=== PATIENT | male | born 1935 | race Caucasian/White ===

== ENCOUNTER → 2016-07-27 | Outpatient (CLI) | payer MEDICARE ==
[~2016-07-27] MED LIST: AC500T PO; ACDPT; ACHYD1T PO; ASP81TEC PO; ASPI-84; CA C1TAB75 PO; CALC-657 PO; CYAN100070 PO; DICL100G20 TOP; ENXP40I.4 SQ; FERR27TA; FISH OIL OMEGA1 EAC1 PO; GLUC-132 PO; HYDR-3857 PO; L GA1CAP2 PO; LISI20TA PO; LISI20TA2; MELA1TAB11 PO; MELA5CAP PO; MEMA10TA PO; MEMA28CA PO; METO50TA7 PO; MULT-1029 PO; MULT-608; MULT-963 PO; OMEG-12 PO; OMEG1CAP47; OMEP-10 PO; OSTEO BI-FLEX PO; RIVA1PAT4 TD; ROPI1TAB40 PO; SENN1TAB76 PO; SULF1TAB7 PO; TRAM-42 PO; TYLENOL ARTHRITIS; WARF4TAB; WARF4TAB7 PO; WRF2T PO; Warfarin Sod PO; [UNRECOGNIZED DRUG - CODE]; [UNRECOGNIZED DRUG - CODE] PO
--- NOTE | 2016-07-27 13:45 | Diagnostic Imaging Report ---
INDICATION: Renal cyst. TECHNIQUE: Bilateral renal sonography was performed in the routine fashion. COMPARISON: 02/26/2016. FINDINGS: The right kidney measures 8.7 x 4.9 x 5.3 cm. The left kidney measures 10.5 x 5.9 x 4.7 cm. There is a complex cyst with septation in the superior portion of the left kidney measuring 2.8 x 2.4 x 3.2 cm. This is unchanged compared to the previous study. The urinary bladder is unremarkable. The right ureteral jet was not seen at this time and the left ureteral jet was visualized. IMPRESSION: Unchanged complex septated cyst in the left kidney superiorly. No new abnormality. Suggest continued followup as clinically warranted. Dictated by: Dictated on workstation # [id number]
== END ==
LOC: RAD 11:45
PROVIDERS: ATTEND Nurse Practitioner Family
DX: N28.1 Cyst of kidney, acquired (principal)
CPT/HCPCS: 76770

== ENCOUNTER 2016-11-17 12:20 | Emergency (ER) | payer MEDICARE ==
[~2016-11-17] VITALS: Ht 172.7 cm; Wt 66.7 kg
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
[2016-11-17 13:18] LABS: BASOPHILS % (AUTO) 0 % (0-10); EOSINOPHILS % (AUTO) 1 % (0-10); LYMPHOCYTES % (AUTO) 17 % (12-44); MEAN CORPUSCULAR HEMOGLOBIN 33 PG (25-34); MEAN CORPUSCULAR HGB CONC 32 G/DL (32-36); MEAN CORPUSCULAR VOLUME 104 FL (80-99); MEAN PLATELET VOLUME 10.3 FL (7.4-10.4); MONOCYTES # (AUTO) 0.5 X 10^3 (0.0-1.0); MONOCYTES % (AUTO) 9 % (0-12); NEUTROPHILS # (AUTO) 4.2 X 10^3 (1.8-7.8); NEUTROPHILS % (AUTO) 74 % (42-75); PLATELET COUNT 167 10^3/uL (130-400); RED BLOOD COUNT 3.74 10^6/uL (4.35-5.85); RED CELL DISTRIBUTION WIDTH 12.9 % (10.0-14.5); WHITE BLOOD COUNT 5.7 10^3/uL (4.3-11.0)
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
[2016-11-17 13:37] LABS: ALANINE AMINOTRANSFERASE 24 U/L (0-55); ALBUMIN 3.8 GM/DL (3.2-4.5); ANION GAP 7 MMOL/L (5-14); ASPARTATE AMINO TRANSFERASE 31 U/L (5-34); BILIRUBIN,TOTAL 0.6 MG/DL (0.1-1.0); BLOOD UREA NITROGEN 30 MG/DL (7-18); BUN/CREATININE RATIO 28; CALCIUM 8.7 MG/DL (8.5-10.1); CARBON DIOXIDE 21 MMOL/L (21-32); CHLORIDE 114 MMOL/L (98-107); CREATININE SERUM 1.09 MG/DL (0.60-1.30); GFR ESTIMATED > 60; GLUCOSE 98 MG/DL (70-105); POTASSIUM 4.6 MMOL/L (3.6-5.0); SODIUM 142 MMOL/L (135-145)
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
[2016-11-17] MEDS ORDERED: TRAM-42 PO (14:22)
[2016-11-17] MEDS: TETANUS,DIPTH,PERTUSS P/F (BOOSTRIX) 0.5 ML VIAL IM ONE (14:25)
[2016-11-17 14:28] VITALS: BP 118/74
== END 2016-11-17 14:28 | disposition home or self-care (01) ==
LOC: EDUNIT# 12:20 → ER 12:22
DX: S09.90XA Unspecified injury of head, initial encounter (principal); S16.1XXA Strain of muscle, fascia and tendon at neck level, initial encounter; S46.911A Strain of unspecified muscle, fascia and tendon at shoulder and upper arm level, right arm, initial encounter; S00.93XA Contusion of unspecified part of head, initial encounter; S00.421A Blister (nonthermal) of right ear, initial encounter; I10 Essential (primary) hypertension; M19.90 Unspecified osteoarthritis, unspecified site; K21.9 Gastro-esophageal reflux disease without esophagitis; Z23 Encounter for immunization; Z86.73 Personal history of transient ischemic attack (TIA), and cerebral infarction without residual deficits; Z87.820 Personal history of traumatic brain injury; Z95.2 Presence of prosthetic heart valve; Z90.89 Acquired absence of other organs; Z90.49 Acquired absence of other specified parts of digestive tract; Z98.890 Other specified postprocedural states; Z96.653 Presence of artificial knee joint, bilateral; Z85.828 Personal history of other malignant neoplasm of skin; Z82.49 Family history of ischemic heart disease and other diseases of the circulatory system; V47.5XXA Car driver injured in collision with fixed or stationary object in traffic accident, initial encounter; Y92.481 Parking lot as the place of occurrence of the external cause
CPT/HCPCS: 36415; 70450; 70486; 71010; 71250; 72125; 73030; 73060; 80053; 85025; 85610; 85730; 99283

== ENCOUNTER → 2017-02-01 | Outpatient (CLI) | payer MEDICARE ==
[~2017-02-01] MED LIST changes: +RT-ALBUTEROL SULF 2.5 MG/3 ML PRE-MIX VIAL IH ONE
== END ==
LOC: RT 08:09
PROVIDERS: ATTEND Internal Medicine Cardiovascular Disease
DX: I63.9 Cerebral infarction, unspecified; R06.02 Shortness of breath; I10 Essential (primary) hypertension; I25.10 Atherosclerotic heart disease of native coronary artery without angina pectoris; E78.2 Mixed hyperlipidemia; R07.9 Chest pain, unspecified
CPT/HCPCS: 94060; 94640; 94726; 94729

== ENCOUNTER → 2017-08-07 | Outpatient (CLI) | payer MEDICARE ==
[~2017-08-07] MED LIST changes: -RT-ALBUTEROL SULF 2.5 MG/3 ML PRE-MIX VIAL IH ONE
--- NOTE | 2017-08-07 17:32 | Diagnostic Imaging Report ---
INDICATION: Renal cyst. COMPARISON: 07/27/2016. FINDINGS: An exophytic cyst in the upper pole cortex of left kidney shows a thin curvilinear echogenic septation and measures an unchanged 3.2 x 2.4 x 2.8 cm. It shows no vascularized component. No new solid or vascularized renal mass. There is no hydronephrosis. The right kidney is 8.1 cm and the left 9.4 cm. IMPRESSION: 1. Left renal exophytic cyst with thin nonvascularized echogenic septation unchanged from prior. No solid or vascularized lesion identified. No adverse development or hydronephrosis. 2. Not mentioned above, the urinary bladder appears normal. Dictated by: Dictated on workstation # [id number]
== END ==
LOC: RAD 14:59
PROVIDERS: ATTEND Family Medicine
DX: N20.0 Calculus of kidney (principal)
CPT/HCPCS: 76770

== ENCOUNTER → 2018-03-30 | Outpatient (CLI) | payer MEDICARE | LOC: CARD 09:28 | PROVIDERS: ATTEND Internal Medicine Cardiovascular Disease | DX: I25.10 Atherosclerotic heart disease of native coronary artery without angina pectoris (principal); I63.9 Cerebral infarction, unspecified; I65.29 Occlusion and stenosis of unspecified carotid artery; R07.9 Chest pain, unspecified; I10 Essential (primary) hypertension; E78.2 Mixed hyperlipidemia; Z95.2 Presence of prosthetic heart valve | CPT/HCPCS: 93306 ==

== ENCOUNTER 2018-08-29 10:55 | Outpatient (CLI) | payer MEDICARE ==
[~2018-08-29] VITALS: Ht 172.7 cm; Wt 66.7 kg
--- NOTE | 2018-08-29 11:00 | NUR ---
PRESENTS PER W/C WITH SON, DR Haider NINO, FOR IV FLUID. LARGE AREAS OF PURPLE BRUISING NOTED ON ARMS AND HANDS. PT TAKES COUMADIN. C/O FATIGUE AND WEAKNESS, HAS HAD NAUSEA, DECREASED APPETITE AND CONFUSION AT TIMES PER SON'S REPORT.
[2018-08-29 11:30] VITALS: BP 101/55
[2018-08-29] MEDS ORDERED: NS IV 1000 ML 1,000 ML IV NR (11:30)
--- NOTE | 2018-08-29 15:36 | NUR ---
HAS BEEN RESTING QUIETLY IN BED. VOIDED 200 CC CLEAR, DARK YELLOW URINE. HAS HAD A SANDWICH AND TAKING PO FLUIDS WITHOUT PROBLEM. DENIES COMPLAINTS OTHER THAN FATIGUE.
--- NOTE | 2018-08-29 15:45 | NUR ---
NEW ORDERS RECEIVED FROM DR VEGAS TO COMPLETE TX BY 1900, DC BMP ORDER.
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
== END 2018-08-29 19:02 | disposition home or self-care (01) ==
LOC: SDC 10:55
PROVIDERS: ATTEND Family Medicine
DX: E87.5 Hyperkalemia (principal); N17.9 Acute kidney failure, unspecified
CPT/HCPCS: 96360; 96361

== ENCOUNTER 2018-12-08 22:16 | Emergency (ER) | payer MEDICARE ==
[~2018-12-08] VITALS: Ht 172.7 cm; Wt 66.7 kg
[2018-12-08] MEDS ORDERED: TETANUS,DIPTH,PERTUSS P/F (BOOSTRIX) 0.5 ML VIAL IM ONE (22:30)
--- NOTE | 2018-12-08 22:36 | ED Fall/Injury ---
General Stated Complaint: L ARM LACERATION FROM FALL Source: patient, family Exam Limitations: no limitations History of Present Illness Date Seen by Provider: Dec 08, 2018 Time Seen by Provider: 22:21 Initial Comments The patient presents to ER by private conveyance with his son and gfslvzyv-ov-wvy. He had a fall in the shower did not strike his head or fall very far but he does have thin skin and tore a curvilinear superficial skin tear on his left forearm and his left elbow. He is on warfarin with a history of valvular replacement. He denies striking his head having any weakness numbness chest pain shortness of breath cough fevers chills dysuria discharge. Allergies and Home Medications Allergies Coded Allergies: NKANo Known Allergies (Verified Allergy, Unknown, 08/24/05) Home Medications A-Cysteine/Me-Cobal/Lm-Folate 1 Tab Tablet, 1 TAB PO DAILY, (Reported) Acetaminophen 500 Mg Tablet, 1,000 MG PO BID, (Reported) TAKE 2 (500MG) TABS Aspirin 81 Mg Tabec, 81 MG PO DAILY, (Reported) Calcium Citrate/Vitamin D3 1 Each Tablet, 1 EACH PO DAILY @ 1800, (Reported) Cyanocobalamin (Vitamin B-12) 1,000 Mcg/15 Ml Liquid, 5,000 MCG PO DAILY, (Rep orted) Glucosamine/D3/Boswellia Mitzi 1 Each Tablet, 2 EACH PO DAILY @ 1800, (Reported) Hydrocodone Bit/Acetaminophen 1 Ea Tab, 1 EA PO Q4H PRN for MODERATE PAIN Prescribed by: TORO VEGAS on 11/23/14 1324 Lisinopril 20 Mg Tablet, 20 MG PO DAILY, (Reported) Memantine HCl 28 Mg Cap.spr.24, 28 MG PO DAILY, (Reported) Metoprolol Succinate 50 Mg Tab, 50 MG PO HS, (Reported) Mu-Vits-Min Th/Lycopene/Lutein 1 Each Tablet, 1 EACH PO DAILY, (Reported) [place]-3/Dha/Epa/Fish Oil 1 Each Capsule.dr, 1 EACH PO DAILY, (Reported) Omeprazole 20 Mg Capsule.dr, 20 MG PO BID, (Reported) Pyridoxine/Melatonin 1 Tab Tablet, 3-9 MG PO HS PRN for SLEEP, (Reported) TAKE 1-3 (3MG) TABS PRN SLEEP Rivastigmine 1 Each Patch.td24, 13.3 MG TD HS, (Reported) Ropinirole Hcl 1 Mg Tablet, 1 MG PO DAILY @ 1800, (Reported) Sulfamethoxazole/Trimethoprim 1 Each Tablet, 0.5 TAB PO HS, (Reported) Tramadol HCl 50 Mg Tablet, 50 MG PO Q12H PRN for PAIN Prescribed by: HIRAL CELAYA on 01/28/15 1108 Tramadol HCl 50 Mg Tablet, 50 MG PO Q4H Prescribed by: CARIN YAÑEZ on 11/17/16 1422 Warfarin Sodium 4 Mg Tablet, 2 MG PO UD, (Reported) TAKES ONE HALF TABLET (2)MG ON Monday AND MONDAY. [Warfarin Sod] 2 MG TAB, 4 MG PO SuTuThSa@18 Prescribed by: TORO VEGAS on 11/26/14 1931 l Gasseri/B Bifidum/B Longum 1 Each Capsule, 1 EACH PO DAILY, (Reported) Patient Home Medication List Home Medication List Reviewed: Yes Review of Systems Review of Systems Constitutional: No chills, No diaphoresis Eyes: Denies Blindness, Denies Blurred Vision Ears, Nose, Mouth, Throat: denies ear pain, denies ear discharge Respiratory: No cough, No short of breath Cardiovascular: No chest pain, No edema Gastrointestinal: No abdominal pain, No nausea Past Twqipsy-Chgwke-Dnzjvm Hx Patient Social History Alcohol Use: Denies Use Recreational Drug Use: No 2nd Hand Smoke Exposure: No Recent Foreign Travel: No Contact w/Someone Who Travel: No Immunizations Up To Date Tetanus Booster (TDap): More than 5yrs Date of Pneumonia Vaccine: Mar 27, 2011 Date of Influenza Vaccine: Jan 21, 2015 Seasonal Allergies Seasonal Allergies: No Past Medical History Abdominal, Appendectomy, Gallbladder, Joint Replacement, Neurological, Open Heart Surgery, Orthopedic, Rectal, Valve Replacement Hypertension, Valvular Heart Disease Dementia, Traumatic Brain Injury Reproductive Disorders: No Sexually Transmitted Disease: No HIV/AIDS: No Gastroesophageal Reflux, Gall Bladder Disease Arthritis Hearing Impairment: Bilateral Hearing Aide Skin Adverse Reaction/Blood Tranf: No Family Medical History Alzheimer's disease Arthritis 19 MOTHER Cardiovascular disease G8 BROTHER Colon cancer 19 MOTHER Completed stroke 19 MOTHER Dementia 19 FATHER Myocardial infarction G8 BROTHER No Family History of: AIDS Abdominal aortic aneurysm [place]'s disease Alcoholism Asthma Cataracts Congenital disease Diabetes mellitus Drug abuse Hypertension Kidney disease Parkinson's disease Prostate cancer Psychosocial problem Respiratory disorder Seizure disorder Severe allergy Thyroid disease Tuberculosis Heart Disease, Hypertension, Stroke Physical Exam Vital Signs Capillary Refill : Height, Weight, BMI Height: 5'8.00" Weight: 147lbs. 0.0oz. [id number]; 21.09 BMI Method:Stated General Appearance: WD/WN, no apparent distress HEENT: PERRL/EOMI, normal ENT inspection, pharynx normal Neck: non-tender, full range of motion, supple, normal inspection Cardiovascular: normal peripheral pulses, regular rate, rhythm Respiratory: no respiratory distress, no accessory muscle use Neurologic/Psychiatric: alert, normal mood/affect, oriented x 3, other (hard of hearing) Skin: other (5 cm curvilinear superficial skin tear that is hemostatic on the left dorsum of the forearm. There is a 5 mm round skin abrasion on the left elbow) [place] Coma Score Best Eye Response: (4) Open Spontaneously Best Verbal Response: (5) Oriented Best Motor Response: (6) Obeys Commands Jazmyne Total: 15 Procedures/Interventions Wound Location: Upper Extremities Other Wound Location Left forearm and elbow Wound Length (cm): 5 Wound's Depth, Shape: superficial Wound Explored: clean Irrigated w/ Saline (ccs): 100 Wound Debrided: minimal Other Closure Supply: Steri Strip 1/2" Number of Sutures: 4 Progress Wound was cleaned thoroughly with sterile saline and then reapproximated skin edges and applied 4 Steri-Strips. One Steri-Strip was placed over the elbow. Wound was hemostatic and patient tolerated procedure well. Gauze and Kerlix were applied over the arm for padding. Progress/Results/Core Measures Progress Progress Note : Time: 22:35 Progress Note The patient is neurologically intact and declines CT of the head. Tetanus vaccination will be provided. Departure Impression Primary Impression: Fall Qualified Codes: W19.XXXA - Unspecified fall, initial encounter Additional Impression: Skin tear of forearm without complication Qualified Codes: S51.812A - Laceration without foreign body of left forearm, initial encounter Disposition: 01 HOME, SELF-CARE Condition: Improved Departure-Patient Inst. Decision time for Depature: 22:35 Referrals: TORO VEGAS MD (PCP/Family) Primary Care Physician Patient Instructions: Wound Care (DC) Add. Discharge Instructions: If he begins to have any difficulty with his thinking, confusion, weakness, inability to do his normal activity such as eating, drinking, talking then return to the ER for further evaluation. Keep the wound dressings changed daily and as often as it becomes soiled. It's okay to put a thin dollop of Vaseline or triple antibiotic ointment over the Steri-Strips. The Steri-Strips will fall off on their own over the next 10-14 days. As the edges curl up just trim them with scissors. HAMIDA HOLLIS Dec 08, 2018 22:36
[2018-12-08 22:42] VITALS: BP 124/73
== END 2018-12-08 22:41 | disposition home or self-care (01) ==
LOC: EDUNIT# 22:16 → ER 22:17
DX: S51.812A Laceration without foreign body of left forearm, initial encounter (principal); S50.312A Abrasion of left elbow, initial encounter; I10 Essential (primary) hypertension; F03.90 Unspecified dementia, unspecified severity, without behavioral disturbance, psychotic disturbance, mood disturbance, and anxiety; K21.9 Gastro-esophageal reflux disease without esophagitis; R40.2142 Coma scale, eyes open, spontaneous, at arrival to emergency department; R40.2252 Coma scale, best verbal response, oriented, at arrival to emergency department; R40.2362 Coma scale, best motor response, obeys commands, at arrival to emergency department; Z87.820 Personal history of traumatic brain injury; Z79.01 Long term (current) use of anticoagulants; Z95.2 Presence of prosthetic heart valve; Z79.82 Long term (current) use of aspirin; Z90.49 Acquired absence of other specified parts of digestive tract; Z82.49 Family history of ischemic heart disease and other diseases of the circulatory system; Z80.0 Family history of malignant neoplasm of digestive organs; W18.30XA Fall on same level, unspecified, initial encounter; Y93.E1 Activity, personal bathing and showering
CPT/HCPCS: 90715; 99284

== ENCOUNTER → 2019-06-20 | Outpatient (CLI) | payer MEDICARE ==
--- NOTE | 2019-06-20 15:33 | Diagnostic Imaging Report ---
INDICATION: Right hip pain. FINDINGS: Two views of the right hip shows narrowing of the hip joint with small osteophytes forming at the superolateral margins of the hip. There is no fracture or dislocation. IMPRESSION: Upgx-ze-oacjfrjw degenerative changes of the right hip. No acute abnormality seen. Dictated by: Dictated on workstation # [id number]
--- NOTE | 2019-06-20 15:42 | Diagnostic Imaging Report ---
EXAMINATION: Pelvis at 3:32 p.m. INDICATION: Right hip pain. FINDINGS: The right hip exam performed prior to this study noted an area of increased density overlying the superior pubic ramus on the left. On this exam, that finding is not as conspicuous. There is still no fracture or acute bony abnormality evident. Even so, if clinical concern regarding an occult fracture persists, then MRI would be recommended for further evaluation. IMPRESSION: 1. There is no evidence for an acute bony abnormality. Recommendations as above. 2. These results were discussed with JOSE ANTONIO Alfonso. Dictated by: Dictated on workstation # [id number]
--- NOTE | 2019-06-21 07:27 | Diagnostic Imaging Report ---
PROCEDURE: MRI pelvis without contrast. TECHNIQUE: Multiplanar, multisequence MRI of the pelvis was performed without contrast. INDICATION: Fell, right hip pain. FINDINGS: There are no previous MRI examinations available for comparison. The plain film examinations of the right hip and pelvis performed earlier today failed to show any sign of an acute bony abnormality. On this exam, there is no abnormal signal arising from the osseous structures of the pelvis to suggest bone edema or fracture. Specifically, there is no evidence for a fracture of the right hip. However, there is considerable edema/inflammation of the musculature throughout the right gluteus kizzy muscle. In addition, there are multiple hematomas amidst the musculature. The largest of these hematomas measures approximately 4.0 x 5.9 cm. By history, the patient is anticoagulated. There is no other abnormality of the soft tissues identified. 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 Levoscoliosis is seen as well. IMPRESSION: 1. There is no evidence for a fracture. However, there is considerable edema/inflammation of the gluteus kizzy muscle on the right and there are multiple hematomas within the musculature. 2. These results were discussed with Dr. Nay Martinez. Dictated by: Dictated on workstation # [id number]
== END ==
LOC: RAD 15:03
PROVIDERS: ATTEND Family Medicine
DX: M16.11 Unilateral primary osteoarthritis, right hip (principal); S70.01XA Contusion of right hip, initial encounter; W19.XXXA Unspecified fall, initial encounter
CPT/HCPCS: 72170; 72195; 73502

== ENCOUNTER 2019-07-09 09:43 | Inpatient (IN) | payer MEDICARE ==
[~2019-07-09] VITALS: Ht 170.1 cm; Wt 58.9 kg
[~2019-07-09 09:43] MED LIST changes: +ACET-93 PO; +ASPI-983 PO; +CALC-147 PO; +CETI10TA17 PO; +CRAN500C5 PO; +CYAN100021 PO; +FA/M1TAB28 PO; +GLUC-219 PO; +HYDR-4226 PO; +ISOS30TA3 PO; +L. A1TAB10 PO; +LIDO1ADH66 TP; +MECL-149 PO; +MELA1TAB27 PO; +MELA3TAB65 PO; +MEMA10TA57 PO; +MINE473O17 LEFT EAR; +NF-METANX PO; +OMEP20CA18 PO; +ONDN4T PO; +ROPI1TAB PO; +SULF-11 PO; +SULF1TAB35 PO; +WARF4TAB70 PO; +WARF4TAB9 PO
[2019-07-09] MEDS ORDERED: ONDANSETRON 4 MG (ZOFRAN) ORAL DISSOLVE TAB PO PRN (10:15)
[2019-07-09] MEDS ORDERED: ALPRAZolam 0.25 MG (XANAX) TAB PO PRN (10:15)
[2019-07-09] MEDS ORDERED: LOPERAMIDE 2 MG (IMODIUM) TABLET PO PRN (10:15)
[2019-07-09] MEDS ORDERED: LACTULOSE SYRUP 10GM/15ML (ENULOSE) 30ML UDC PO PRN (10:15)
[2019-07-09] MEDS ORDERED: BISACODYL 10 MG SUPP (DULCOLAX) PR PRN (10:15)
[2019-07-09] MEDS ORDERED: guaiFENesin/CODEINE (ROBITUSSIN AC) 10ML UDC PO PRN (10:15)
[2019-07-09] MEDS ORDERED: FLEET ENEMA ADULT 1 EA BTL PR PRN (10:15)
[2019-07-09] MEDS ORDERED: DOCUSATE SODIUM 100 MG (COLACE) CAP PO PRN (10:15)
[2019-07-09] MEDS ORDERED: CALCIUM CARBONATE 500 MG (TUMS) TAB.CHEW PO PRN (10:15)
[2019-07-09] MEDS ORDERED: diphenhydrAMINE 25 MG TAB (BENADRYL) PO PRN (10:15)
--- NOTE | 2019-07-09 10:20 | NUR ---
SHERICE NINO admitted to room 223-1, with an admitting diagnosis of DEBILITY, on 07/09/[address] [facility] [address] via WHEELCHAIR, accompanied by STAFF.SHERICE NINO introduced to surroundings, call light, bed controls, phone, TV, temperature control, lights, meal times, smoking policy, visitor policy, side rail policy, bathrooms and showers. Patient Rights given to patient in the handbook.SHERICE NINO verbalizes understanding that [facility] is not responsible for the loss or damage to any personal effects or valuables that are kept in the patients posession during their hospitalization. The following Patient Care Plans were discussed with the PATIENT: Discharge Planning, FALLS,ANEMIA, and IMPAIRED MOBILITY. SHERICE NINO verbalizes understanding of Interdisciplinary Patient Education. Patient received Patient Rights Booklet, which includes Privacy Act Statement and Data Collection Information Summary. IV INTACT IN RIGHT FOREARM. PATIENT DENIES PAIN AT THIS TIME.
--- NOTE | 2019-07-09 11:34 | Occupational Therapy Eval ---
OT Evaluation-General/PLF Medical Diagnosis Admission Date Jul 09, 2019 at 10:20 Medical Diagnosis: debility Onset Date: Jul 02, 2019 Therapy Diagnosis Therapy Diagnosis: impaired ADLs/functional mobility/ weakness Height/Weight Height (Feet): 5 Height (Inches): 8.00 Weight (Pounds): 147 Weight (Ounces): 0.0 Precautions Precautions/Isolations: Fall Prevention, Standard Precautions Safety Interventions: Bed Exit Alarm Referral Physician: Jamia Referral Reason: Evaluation/Treatment Medical History Pertinent Medical History: Arthritis, HTN Additional Medical History appendectomy, open heart surgery, valve replacement, orthopedic surgery, dementia, L subdural hematoma - traumatic - s/p evacuation, Current History Pt fell at [facility] on 06/11/2019, he began reporting pain ~06/20/2019. Imaging did not show signs of a fracture, but did show intramuscular bleeding in R gluteus. He arrived to ED via EMS with weakness. Pt admitted acutely on 07/02/2019 and then admitted to ARU on 07/09/2019 for skilled therapies Reviewed History: Yes Social History Home: Assisted Living ([facility]) Current Living Status: Spouse ADL-Prior Level of Function SCALE: Activities may be completed with or without assistive devices. 0-Gpkgsupphd-ippbpgs completes the activity by him/herself with no assistance from a helper. 5-Set-up or Clean-up Assistance-helper sets up or cleans up; patient completes activity. [place] assists only prior to or following the activity. 4-Supervision or Touching Assistance-helper provides verbal cues and/or touching/steadying and/or contact guard assistance as patient completes activity. Assistance may be provided throughout the activity or intermittently. 3-Partial/Moderate Assistance-helper does LESS THAN HALF the effort. [place] lifts, holds or supports trunk or limbs, but provides less than half the effort. 2-Substantial/Maximal Assistance-helper does MORE THAN HALF the effort. [place] lifts or holds trunk or limbs and provides more than half the effort. 7-Pttgzdkua-rermcs does ALL the effort. Patient does none of the effort to complete the activity. Or, the assistance of 2 or more helpers is required for the patient to complete the activity. If activity was not attempted, code reason: 7-Patient Refused. 9-Not Applicable-not attempted and the patient did not perform the activity before the current illness, exacerbation or injury. 10-Not Attempted due to Environmental Limitations-(lack of equipment, weather restraints, etc.). 88-Not Attempted due to Medical Conditions or Safety Concerns. ADL PLOF Comments Per pt report he was independent with dressing and bathing prior to hospitalization. He did receive assistance with meals. Pt did not have any family present to confirm his PLOF as pt does have a hx of dementia. Self Care: Needed Some Help Functional Cognition: Needed Some Help DME/Equipment: Shower DME/Equipment Comments walker OT Current Status Subjective Pt did not report any pain during OT session. He was agreeable to OT evaluation and tx. Mental Status/Objective Patient Orientation: Person, Place, Time, Situation Current Glasses/Contacts: Yes Hearing Aids: Yes Dentures/Partials: Yes Hand Dominance: Right Upper Extremity ROM WFL, BUE shoulder flexion to approx 120 degrees Upper Extremity Coordination WFL Upper Extremity Sensation pt denies tingling/numbness BUEs, he did report some changes in sensation in his right leg. Upper Extremity Strength grossly 3/5 MMT ADL-Treatment Oral Hygiene (QC): 3 (Pt completed task after set up on tray table. Pt able to put toothpaste on toothbrush, and brush his teeth as well as take his dentures out to brush them. OT provided min assist with rinsing dentures after he brushed them. ) Shower/Bathe Self (QC): 4 (Sponge Bath: Pt able to wash all parts with increased time and CGA during stand for safety.) Upper Body Dressing (QC): 3 (Pt impulsively stood up during task without warni ng in order to pull his shirt down. CGA required during stand.) Lower Body Dressing (QC): 3 (Pt required assist threading BLEs into underwear, he was able to thread BLEs into pants, then manage clothing up with CGA during stand. ) On/Off Footwear (QC): 4 (SBA during task, pt able to don/doff slipper socks with increased time. ) Other Treatments Pt seated in w/c during treatment, he brushed his teeth at tray table, then participated in sponge bath/dressing. Pt impulsive during session, standing up without warning in order to pull his shirt down. Pt required cues for safety during tx. Post OT session, pt seated upright in w/c, call light in reach and all needs met with PT present. Education OT Patient Education: Correct positioning, Energy conservation, Modified ADL techniques, Progress toward Goal/Update tx plan, Purpose of tx/functional activities, Safety issues Teaching Recipient: Patient Teaching Methods: Discussion Response to Teaching: Verbalize Understanding, Reinforcement Needed OT Short Term Goals Short Term Goals Time Frame: Jul 24, 2019 Shower/bathe self: 5 Upper body dressin Lower body dressin OT Mcc Goals Disability Coordinator Goals Time Frame: Aug 02, 2019 Eating (QC): 6 Oral Hygiene (QC): 6 Toileting Hygiene (QC): 6 Shower/Bathe Self (QC): 6 Upper Body Dressing (QC): 6 Lower Body Dressing (QC): 6 On/Off Footwear (QC): 6 Additional Goals: 1-Demonstrate ADL Tasks, 2-Verbalize Understanding, 3- ImproveStrength/Bill 1=Demonstrate adherence to instructed precautions during ADL tasks. 2=Patient will verbalize/demonstrate understanding of assistive devices/modifications for ADL. 3=Patient will improve strength/tolerance for activity to enable patient to perform ADL's. OT Education/Plan Problem List/Assessment Assessment: Decreased Activ Tolerance, Decreased UE Strength, Impaired Funct Balance, Impaired I ADL's, Impaired Self-Care Skills Discharge Recommendations Plan/Recommendations: Continue POC Treatment Plan/Plan of Care Treatment,Training & Education: Yes Patient would benefit from OT for education, treatment and training to promote independence in ADL's, mobility, safety and/or upper extremity function for ADL's. Plan of Care: ADL Retraining, Functional Mobility, Group Exercise/Act as Ind, UE Funct Exercise/Act Treatment Duration: Aug 02, 2019 Frequency: At least 5 of 7 days/Wk (IRF) Estimated Hrs Per Day: 1.5 hours per day Agreement: Yes Rehab Potential: Fair Time/GCodes Start Time: 10:20 Stop Time: 11:00 Total Time Billed (hr/min): 40 Billed Treatment Time 1, EVM (10'), ADL 2 (30') [address] OT Jul 09, 2019 11:34
[2019-07-09 11:44] VITALS: BP 153/73
--- NOTE | 2019-07-09 11:51 | Physical Therapy Evaluation ---
PT Evaluation-General Medical Diagnosis Admission Date Jul 09, 2019 at 10:20 Medical Diagnosis: debility Onset Date: Jul 02, 2019 Therapy Diagnosis Therapy Diagnosis: impaired mobility, strength, endurance Height/Weight Height (Feet): 5 Height (Inches): 8.00 Weight (Pounds): 147 Weight (Ounces): 0.0 Referral Physician: Nikki Blandon DO Reason for Referral: Evaluation/Treatment Medical History Pertinent Medical History: Arthritis, HTN Reviewed History: Yes Social History Home: Assisted Living Entry Into Home: Level Entry Prior Prior Level of Function SCALE: Activities may be completed with or without assistive devices. 4-Iwjcftszap-rytwkxw completes the activity by him/herself with no assistance from a helper. 5-Set-up or Clean-up Assistance-helper sets up or cleans up; patient completes activity. [place] assists only prior to or following the activity. 4-Supervision or Touching Assistance-helper provides verbal cues and/or touching/steadying and/or contact guard assistance as patient completes activity. Assistance may be provided throughout the activity or intermittently. 3-Partial/Moderate Assistance-helper does LESS THAN HALF the effort. [place] lifts, holds or supports trunk or limbs, but provides less than half the effort. 2-Substantial/Maximal Assistance-helper does MORE THAN HALF the effort. [place] lifts or holds trunk or limbs and provides more than half the effort. 4-Medmmiade-npcyam does ALL the effort. Patient does none of the effort to com plete the activity. Or, the assistance of 2 or more helpers is required for the patient to complete the activity. If activity was not attempted, code reason: 7-Patient Refused. 9-Not Applicable-not attempted and the patient did not perform the activity before the current illness, exacerbation or injury. 10-Not Attempted due to Environmental Limitations-(lack of equipment, weather restraints, etc.). 88-Not Attempted due to Medical Conditions or Safety Concerns. Bed Mobility: 6 Transfers (B,C,W/C): 6 Gait: 6 Indoor Mobility (Ambulation): Independent Prior Devices Use: Walker PT Evaluation-Current Subjective Patient in recliner pre tx, agrees to PT, has no complaints of pain but states his right leg feels uncomfortable sometimes. Patient just got done with OT. Pt/Family Goals to be independent back at the assisted living facility Objective Patient Orientation: Person, Confused, Situation ROM/Strength ROM Lower Extremities WNL Strength Lower Extremities RLE (hip flexion 1/5, knee flexion 4/5, knee extension 3+/5, dorsiflexion 4/5), LLE (hip flexion 4/5, knee flexion 4/5, knee extension 4/5, dorsiflexion 4/5) Sensory Vision: Wears Glasses Hearing: Impaired Sensation Right Lower Extremit: Intact Sensation Left Lower Extremity: Intact Transfers Roll Left to Right (QC): 4 Sit to Lying (QC): 3 Lying to Sitting/Side of Bed(Q: 4 Sit to Stand (QC): 4 Chair/Yha-tc-Uywzq Xfer(QC): 4 Car Transfer (QC): 3 Patient performs bed mobility with SBA, supine to sit with SBA, sit to supine with min assist, sit <-> stand with CGA, transfers with CGA, car transfer min assist. Occasional cues for safety and positioning. Patient can move impulsively. Gait Does the Patient Walk?: Yes Mode of Locomotion: Walk Anticipated Mode of Locomotion: Walk Walk 10 feet (QC): 4 Walk 50 ft with 2 Turns(QC): 4 Walk 150 ft (QC): 4 Walking 10ft/uneven surface-QC: 4 Distance: 200'x2 Gait Assistive Device: FWW Comments/Gait Description Patient ambulates slowly but steady, good step through, very slumped posture though. Wheelchair Training Does the Pt Use a Wheelchair?: No Stairs #of Steps: 4 1 Step (curb) (QC): 4 4 Steps (QC): 4 12 Steps (QC): 88 Patient can go up and down 4 steps using 2 handrails with CGA, cues for foot placement. Balance Sitting Static: Normal Sitting Dynamic: Normal Standing Static: Good Standing Dynamic: Fair Picking up an Object (QC): 88 Treatment NuStep level 4 for 15 min, seated exercises x20 (AP, LAQ, hip flexion). Patient in recliner post tx with nurse call, phone, tray, all needs met. Chair alarm on and telesitter in room. Assessment/Needs Patient has impaired mobility, strength, endurance. He is confused and slightly impulsive with mobility. Rehab Potential: Fair PT Short Term Goals Short Term Goals Time Frame: Jul 16, 2019 Roll Left & Right: 6 Sit to lyin (SBA) Lying to sitting on side of be: 4 (SBA) Sit to stand: 4 (SBA) Chair/xmj-ne-rhcix transfer: 4 (SBA) Walk 10 feet: 4 (SBA) Walk 50 feet with two turns: 4 (SBA) Walk 150 feet: 4 (SBA) PT Fdc Goals Fdc Goals PT Resident Care Assistant Goals Time Frame: Jul 30, 2019 Roll Left & Right (QC): 6 Sit to Lying (QC): 6 Lying-Sitting on Side/Bed(QC): 6 Sit to Stand (QC): 6 Chair/Nps-oq-Rtyyt Xfer(QC): 6 Toilet Transfer (QC): 6 Car Transfer (QC): 6 Walk 10 feet (QC): 6 Walk 50ft with 2 Turns (QC): 6 Walk 150 ft (QC): 6 Walking 10ft on Uneven Surface: 6 1 Step (curb) (QC): 4 (SBA) 4 Steps (QC): 4 (SBA) PT Plan Problem List Problem List: Activity Tolerance, Functional Strength, Safety, Balance, Gait, Transfer, Bed Mobility Treatment/Plan Treatment Plan: Continue Plan of Care Treatment Plan: Bed Mobility, Education, Functional Activity Bill, Functional Strength, Group Therapy, Gait, Safety, Therapeutic Exercise, Transfers Treatment Duration: Jul 30, 2019 Frequency: At least 5 of 7 days/Wk (IRF) Estimated Hrs Per Day: 1.5 hours per day Patient and/or Family Agrees t: Yes Safety Risks/Education Patient Education: Gait Training, Transfer Techniques, Steps, Correct Positioning, Safety Issues Teaching Recipient: Patient Teaching Methods: Demonstration, Discussion Response to Teaching: Reinforcement Needed Discharge Recommendations Plan Patient will perform bed mobility and transfer training, balance and endurance training, functional strengthening, stair training, gait training, and education, to improve functional mobility and independence at home. Therapy Discharge Recommendati: 24 Hour Supervision, Assisted Living Time/GCodes Time In: 1100 Time Out: 1200 Total Billed Treatment Time: 60 Total Billed Treatment 1 visit EVM 30' EX 20' FA 10' ALESHA MILIAN PT Jul 09, 2019 11:51
[2019-07-09] MEDS ORDERED: ENOXAPARIN 40 MG/0.4 ML (LOVENOX) SYR SC SCH (12:24)
[2019-07-09] MEDS ORDERED: ACETAMINOPHEN 500 MG TAB (TYLENOL) PO PRN (12:30)
[2019-07-09] MEDS ORDERED: HYDROcodone/APAP 5 MG/325 MG (LORTAB) TAB PO PRN (12:30)
--- NOTE | 2019-07-09 14:15 | Occupational Ther Daily Note ---
OT Current Status-Daily Note Subjective Pt seated upright in recliner at start of session, agreeable to OT tx. He did not report any pain. ADL-Treatment Therapy Code Descriptions/Definitions Functional [place] Measure: 0=Not Assessed/NA 4=Minimal Assistance 1=Total Assistance 5=Supervision or Setup 2=Maximal Assistance 6=Modified [place] 3=Moderate Assistance 7=Complete IndependenceSCALE: Activities may be completed with or without assistive devices. 3-Eguavcsffx-ugxxvfi completes the activity by him/herself with no assistance from a helper. 5-Set-up or Clean-up Assistance-helper sets up or cleans up; patient completes activity. [place] assists only prior to or following the activity. 4-Supervision or Touching Assistance-helper provides verbal cues and/or touching/steadying and/or contact guard assistance as patient completes activity. Assistance may be provided throughout the activity or intermittently. 3-Partial/Moderate Assistance-helper does LESS THAN HALF the effort. [place] lifts, holds or supports trunk or limbs, but provides less than half the effort. 2-Substantial/Maximal Assistance-helper does MORE THAN HALF the effort. [place] lifts or holds trunk or limbs and provides more than half the effort. 6-Scmrexbrz-rnbfsh does ALL the effort. Patient does none of the effort to complete the activity. Or, the assistance of 2 or more helpers is required for the patient to complete the activity. If activity was not attempted, code reason: 7-Patient Refused. 9-Not Applicable-not attempted and the patient did not perform the activity before the current illness, exacerbation or injury. 10-Not Attempted due to Environmental Limitations-(lack of equipment, weather restraints, etc.). 88-Not Attempted due to Medical Conditions or Safety Concerns. Eating (QC): 6 (Per pt report, he had no difficulties eating lunch prior to session.) Toileting Hygiene (QC): 4 (CGA during clothing management) Toilet Transfer (QC): 4 (CGA on/off toilet) Other Treatment Pt seated in recliner. OT asked pt if he felt like he needed to use the restroom, pt stated he better try. OT assisted pt to the restroom, CGA with FWW, pt then asked "what did you want me to do?". OT directed pt to use the toilet. Pt then performed functional mobility to the therapy area, where he completed the following activities/exercises in order to increase functional endurance, BUE strength, and standing balance for tasks: 1) pt completed BUE dowel exercises, seated x15 reps each of shoulder flexion (to approx 90 degrees), elbow flexion/extension, & wrist flexion/extension. Pt required verbal cues in order to keep a slow pace and for correct counting. 2) Pt stood at [facility] and completed ring arch x2 sets each movement BUEs, crossing midline and bringing rings to ipsilateral side, and starting on same sides then crossing midline. Pt took a seated rest break between each set. 3) Pt completed arm bike x10 mins, min resistance. Pt impulsive during session, attempting to stand before OT placed the walker in front of him, requiring verbal cue not to stand up yet. During session, pt told OT that his IV could be taken out since it is not being used. OT attempted to redirect pt that he had an IV in this morning before he started therapy. Pt told OT that she was wrong and his IV has not been used recently. OT informed pt that she was not allowed to take it out since she is not a nurse, pt then replied "oh you're not a nurse?". OT notified nurse that pt would like his IV removed. Pt returned to his room using [facility] with CGA, where he returned to the recliner. He told OT thank you for working with him, but he hopes this is the last time. OT informed pt that he just arrived on the rehab unit today and he would have more days of therapy. Pt indicated that he would really like to go home and be with his . OT then educated pt on rehab expect ations. Post OT session, pt upright in recliner, call light in reach and all needs met, chair alarm on and telesitter present. Education OT Patient Education: Correct positioning, Energy conservation, Exercise program, Modified ADL techniques, Progress toward Goal/Update tx plan, Purpose of tx/functional activities, Safety issues, Transfer techniques Teaching Recipient: Patient Teaching Methods: Discussion Response to Teaching: Verbalize Understanding, Reinforcement Needed OT Short Term Goals Short Term Goals Time Frame: Jul 24, 2019 Shower/bathe self: 5 Upper body dressin Lower body dressin OT Mcfp Goals Mcfp Goals Time Frame: Aug 02, 2019 Eating (QC): 6 Oral Hygiene (QC): 6 Toileting Hygiene (QC): 6 Shower/Bathe Self (QC): 6 Upper Body Dressing (QC): 6 Lower Body Dressing (QC): 6 On/Off Footwear (QC): 6 Additional Goals: 1-Demonstrate ADL Tasks, 2-Verbalize Understanding, 3- ImproveStrength/Bill 1=Demonstrate adherence to instructed precautions during ADL tasks. 2=Patient will verbalize/demonstrate understanding of assistive devices/modifications for ADL. 3=Patient will improve strength/tolerance for activity to enable patient to perform ADL's. OT Education/Plan Problem List/Assessment Assessment: Decreased Activ Tolerance, Decreased Safety Aware, Decreased UE Strength, Impaired Funct Balance, Impaired I ADL's, Impaired Self-Care Skills, Restricted Funct UE ROM Discharge Recommendations Plan/Recommendations: Continue POC Treatment Plan/Plan of Care Treatment,Training & Education: Yes Patient would benefit from OT for education, treatment and training to promote independence in ADL's, mobility, safety and/or upper extremity function for ADL's. Plan of Care: ADL Retraining, Functional Mobility, Group Exercise/Act as Ind, UE Funct Exercise/Act Treatment Duration: Aug 02, 2019 Frequency: At least 5 of 7 days/Wk (IRF) Estimated Hrs Per Day: 1.5 hours per day Agreement: Yes Rehab Potential: Fair Time/GCodes Start Time: 13:10 Stop Time: 14:00 Total Time Billed (hr/min): 50 Billed Treatment Time 1, FA (20'), EX 2 (30') [address] OT Jul 09, 2019 14:15
--- NOTE | 2019-07-09 14:35 | Physical Therapy Daily Note ---
PT Daily Note-Current Subjective Patient was tired during session and pain 5/10 in R hip. Appearance Patient returned to room with call light and tray in reach. Patient seated in recliner, with chair alarm set and telesitter in room. Mental Status Patient Orientation: Person, Place, Eyes Open Transfers SCALE: Activities may be completed with or without assistive devices. 7-Aimagvqynm-wmxanku completes the activity by him/herself with no assistance from a helper. 5-Set-up or Clean-up Assistance-helper sets up or cleans up; patient completes activity. [place] assists only prior to or following the activity. 4-Supervision or Touching Assistance-helper provides verbal cues and/or touching/steadying and/or contact guard assistance as patient completes activity. Assistance may be provided throughout the activity or intermittently. 3-Partial/Moderate Assistance-helper does LESS THAN HALF the effort. [place] lifts, holds or supports trunk or limbs, but provides less than half the effort. 2-Substantial/Maximal Assistance-helper does MORE THAN HALF the effort. [place] lifts or holds trunk or limbs and provides more than half the effort. 3-Qivcqzwfb-kfdwei does ALL the effort. Patient does none of the effort to complete the activity. Or, the assistance of 2 or more helpers is required for the patient to complete the activity. If activity was not attempted, code reason: 7-Patient Refused. 9-Not Applicable-not attempted and the patient did not perform the activity before the current illness, exacerbation or injury. 10-Not Attempted due to Environmental Limitations-(lack of equipment, weather restraints, etc.). 88-Not Attempted due to Medical Conditions or Safety Concerns. Sit to Lying (QC): 4 (SBA) Lying to Sitting/Side of Bed(Q: 3 (Min A) Sit to Stand (QC): 4 (CGA) Verbal cues for safety. Gait Training Does the Patient Walk?: Yes Distance: 50+100+50 Walk 10 feet (QC): 4 (CGA) Walk 50 ft with 2 Turns(QC): 4 (CGA) Walk 150 ft (QC): 4 (CGA) Gait Assistive Device: FWW Patient ambulated with forward posture with CGA for safety. Verbal cues to keep RW close and bring it around when the patient sat down. Exercises Supine Ex: Ankle pumps (3x10), Heel Slides (2x10), Scooting (1x) Seated Therapy Exercises: Ankle pumps (2x10), Hip flexion (3x10 (slowly) last set with 2 sec hold ), Kicking activity (3x10 (slowly) last set with 2 sec hold.), Hip abd/add (3x10 ) Treatments Ambulation, therapeutic exercises, functional mobility, transfer training. Assessment Current Status: Good Progress Patient complete all activities and did not refuse any. Patient has pain on the R hip and was given rest between sets to let it calm down. Patient is motivated to complete therapy. PT Short Term Goals Short Term Goals Time Frame: Jul 16, 2019 Roll Left & Right: 6 Sit to lyin (SBA) Lying to sitting on side of be: 4 (SBA) Sit to stand: 4 (SBA) Chair/jdz-ts-fovxn transfer: 4 (SBA) Walk 10 feet: 4 (SBA) Walk 50 feet with two turns: 4 (SBA) Walk 150 feet: 4 (SBA) PT Residential Goals Residential Goals PT Residential Goals Time Frame: Jul 30, 2019 Roll Left & Right (QC): 6 Sit to Lying (QC): 6 Lying-Sitting on Side/Bed(QC): 6 Sit to Stand (QC): 6 Chair/Ltq-jg-Cqzwi Xfer(QC): 6 Toilet Transfer (QC): 6 Car Transfer (QC): 6 Walk 10 feet (QC): 6 Walk 50ft with 2 Turns (QC): 6 Walk 150 ft (QC): 6 Walking 10ft on Uneven Surface: 6 1 Step (curb) (QC): 4 (SBA) 4 Steps (QC): 4 (SBA) PT Plan Problem List Problem List: Activity Tolerance, Functional Strength, Safety, Balance, Gait, Transfer, Bed Mobility, ROM Treatment/Plan Treatment Plan: Continue Plan of Care Treatment Plan: Bed Mobility, Education, Functional Activity Bill, Functional Strength, Group Therapy, Gait, Safety, Therapeutic Exercise, Transfers Treatment Duration: Jul 30, 2019 Frequency: At least 5 of 7 days/Wk (IRF) Estimated Hrs Per Day: 1.5 hours per day Patient and/or Family Agrees t: Yes Safety Risks/Education Patient Education: Gait Training, Transfer Techniques, Reviewed Precautions, Correct Positioning, Safety Issues Teaching Recipient: Patient Teaching Methods: Demonstration, Discussion Response to Teaching: Verbalize Understanding, Reinforcement Needed Time/GCodes Time In: 1400 Time Out: 1430 Total Billed Treatment Time: 30 Total Billed Treatment 1 visit Ex 15' GT 15' ALESHA MILIAN PT Jul 09, 2019 14:35
--- NOTE | 2019-07-09 14:55 | ST Cognitive Linguistic Eval ---
Speech Evaluation-General Medical Diagnosis debility Onset Date: Jul 02, 2019 Therapy Diagnosis Therapy Diagnosis: Cognitive-communication Referral Referring Physician: Dr. Blandon Medical History Pertinent Medical History: Arthritis, HTN Reviewed History: Yes Social History Current Living Status: Spouse Speech PLF-Current Status Prior Level of Function Patient lived in an AL facility with his where he received assistance as needed. Subjective Patient was pleasant and cooperative with the cognitive assessment. Language Eval: Auditory Comprehends Simple Yes/No Ques: Functional Indent/Objects [place]: Functional Ident/Pics in [place]: Functional Follows 1-Step Commands: Functional Follows Complex Directions: Moderate Follows General Conversations: Mild Language Eval: Verbal Language Completes Spontaneous Greeting: Functional Produces Auto, Serial Info: Mild Imitates Simple Words/Phrases: Mild Word Finding: Mild Requests Basic Needs: Mild States Basic Personal Info: Mild Expresses Complex Ideas: Moderate Objective Cognitive Domain Attention: WNL Memory: Moderate Problem Solving: Moderate Executive Functions: Moderate Visuospatial Skills: WNL Composite Severity Rating: Moderate Clock Drawing Severity Rating: Moderate Objective Formal/Standardized Tests [facility] Status ([facility]) Results 9/30, moderate level of dementia range of function Oral Motor/Speech Production Within Normal Function Impression Patient is a pleasant 84 year old man who was admitted to the ARU s/p fall with injury. He was given the UMS and was noted to be confused. He obtained a score of 9/30 which is within the moderate level of dementia range of function. The patient meets criteria for skilled ST services. Focus of therapy will be on safety awareness and independence so that he may return home safely to his AL apartment. Speech Patient Assess Expression of Ideas/Wants: Frequently (2) Understanding Verbal Content: Sometimes Understands(2) Brief Interview-Mental Status: Yes Repetition of Three Words: One (1) Temporal Orientation: Year: Correct (3) Temporal Orientation: Month: Accurate within 5 days(2) Temporal Orientation: Day: Incorrect or No Answer(0) Recall : Wear to say "Sock": No, could not recall (0) Recall : Color: No, could not recall (0) Recall : Bed: No, could not recall (0) Memory/Recall Ability: That he or she is in a hsp/hsp unit Speech Short Term Goals Short Term Goals Short Term Goals 1) The patient will complete memory tasks related to his daily needs at 80% or greater. 2) The patient will complete problem solving tasks related to his daily needs at 80% or greater. 3) The patient will complete safety awareness tasks related to his daily needs at 80% or greater. Speech Fci Goals Fci Goals Patient will improve cognitive-communication necessary for safety and daily living tasks with minimal assist. Speech-Plan Patient/Family Goals Patient/Family Goals: The patient plans on returning to his [place] apartment where he lives with his . Treatment Plan Speech Therapy Treatment Plan: Continue Plan of Care Frequency: 5 times per week Estimated Hrs Per Day: .5 hour per day Rehab Potential: Fair Barriers to Learning: Patient has moderate dementia Pt/Family Agrees to Plan: Yes Safety Risks/Education Teaching Recipient: Patient Teaching Methods: Discussion Response to Teaching: Verbalize Understanding, Reinforcement Needed Education Topics Provided: Safety within his room and communication of wants/needs Time Speech Therapy Time In: 14:30 Speech Therapy Time Out: 14:45 Total Billed Time: 15 Billed Treatment Time 1, SLICK De Luna Jul 09, 2019 14:55
--- NOTE | 2019-07-09 15:00 | NUR ---
SALINE LOCK D/C'D PER ORDER. PATIENT TOLERATED WELL, NO C/O. PATIENT SITTING UP IN RECLINER. TELE-SITTER IN PLACE. PATIENT IS PLEASANT, ABLE TO ANSWER SOME QUESTIONS, CONFUSED AT TIMES. [place] D/C'D PER DR. VEGAS D/T PATIENT HX OF BLEED.
[2019-07-09 15:17] VITALS: BP 166/78
[2019-07-09] MEDS: warFARin 2 MG (COUMADIN) TAB PO SCH (18:17)
[2019-07-09] MEDS: rOPINIRole 1 MG (REQUIP) TABLET PO SCH (18:17)
[2019-07-09 18:27] VITALS: BP 153/73
[2019-07-09] MEDS: polyethylene glycoL POWDER 17 GM (MIRALAX) PACK PO SCH (19:57)
[2019-07-09] MEDS: PANTOPRAZOLE 20 MG TABLET (PROTONIX) PO SCH (20:15)
[2019-07-09] MEDS: meTOproloL SUCCINATE 50 MG (TOPROL XL) TAB PO SCH (20:15)
[2019-07-09] MEDS: ACETAMINOPHEN 500 MG TAB (TYLENOL) PO SCH (20:16)
[2019-07-09] MEDS: SENNA W/DOCUSATE (SENOKOT S) TABLET PO SCH (20:20)
--- NOTE | 2019-07-09 20:25 | PM&R Post Admission Assessment ---
PM&R HP Date of Visit: Jul 09, 2019 Time of Visit: 10:30 History of Present Illness CC: Debility HPI: This is an 84yoWM, PCP is Dr. Martinez who presented with weakness and anem ia from supratherapeutic INR and bleeding into iliopsoas muscle, [facility] and the decision was made to proceed with inpatient rehab evaluation which was completed and he is willing to meet the regulatory requirements of the three hours of therapy. I did review his home medication, Dr. Egan sees him regularly for valve replacement status, and currently his bowels are moving he is trying to eat more, I did start a regular diet which will be helpful to build reserve. DC note from med-surg per PCP Dr Martinez: Admission Diagnosis SUPRA-THERAPEUTIC INR SEVERE ANEMIA DEMENTIA FALL ON 06/11/2019 WITH LARGE RIGHT GLUTEAL HEMATOMA AND NEW ILIOPSOAS MUSCLE HEMATOMA UNCONTROLLED PAIN RIGHT HIP/BACK DELIRIUM Discharge Diagnosis SUPRA-THERAPEUTIC INR SEVERE ANEMIA DEMENTIA FALL ON 06/11/2019 WITH LARGE RIGHT GLUTEAL HEMATOMA AND NEW ILIOPSOAS MUSCLE HEMATOMA UNCONTROLLED PAIN RIGHT HIP/BACK DELIRIUM Reason Hospital Visit PT IS AN 84 Y/O MALE WHO IS KNOWN TO ME FROM CLINIC. [facility]ICE FELL AT [facility] 06/11/2019, STARTED TO REPORT PAIN AROUND 06/20/2019, HAD IMAGING WHICH DID NOT SHOW A FRACTURE, BUT DID SHOW INTRAMUSCULAR BLEEDING IN THE RIGHT GLUTEUS. THE PATIENT WAS SEEN IN THE OFFICE, LABS WERE DONE AND AT THAT TIME HIS INR WAS NORMAL, HOWEVER TODAY IN THE ER HE HAD AN INR OF 8. HE IS UNABLE TO REPORT ANY SYMPTOMS TO ME TODAY. I SUSPECT THAT HE DECREASED HIS INTAKE FROM A FOOD STANDPOINT DUE TO HIS PAIN AND KEPT TAKING THE MEDICATION WHICH RESULTED IN ELEVATED INR. THE SCAN TODAY SHOWED THAT HE HAS BEEN PERSISTENTLY BLEEDING INTO THE MUSCLES OF HIS LOW BACK/BUTTOCK AND HE HAS A 10CM HEMATOMA WITH ACUTE ANEMIA DUE TO THE BLEEDING. 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[employer]) Alcohol Use: Denies Use Recreational Drug Use: No Smoking Status: Former Smoker Former Smoker, Quit: Jun 29, 1949 Type Used: Cigarettes 2nd Hand Smoke Exposure: No Physical Abuse Screen: No Sexual Abuse: No Recent Foreign Travel: No Contact w/other who traveled: No Recent Hopitalizations: No Recent Infectious Disease Expo: No Immunizations Up To Date Tetanus Booster (TDap): Unknown Date of Pneumonia Vaccine: Mar 27, 2011 Date of Influenza Vaccine: Dec 30, 2018 Seasonal Allergies Seasonal Allergies: No Past Medical History Surgeries: Abdominal, Appendectomy, Gallbladder, Joint Replacement, Neurological, Open Heart Surgery, Orthopedic, Rectal, Valve Replacement Cardiac: Hypertension, Valvular Heart Disease Neurological: Dementia, Traumatic Brain Injury Reproductive: No Sexually Transmitted Disease: No HIV/AIDS: No Gastrointestinal: Gastroesophageal Reflux, Gall Bladder Disease Musculoskeletal: Arthritis Hearing Impairment: Hard of Hearing, Bilateral Hearing Aide Cancer: Skin History of Blood Disorders: No Adverse Reaction to Blood Black: No Family History Alzheimer's disease Arthritis 19 MOTHER Cardiovascular disease G8 BROTHER Colon cancer 19 MOTHER Completed stroke 19 MOTHER Dementia 19 FATHER Myocardial infarction G8 BROTHER No Family History of: AIDS Abdominal aortic aneurysm [place]'s disease Alcoholism Asthma Cataracts Congenital disease Diabetes mellitus Drug abuse Hypertension Kidney disease Parkinson's disease Prostate cancer Psychosocial problem Respiratory disorder Seizure disorder Severe allergy Thyroid disease Tuberculosis Heart Disease, Hypertension, Stroke Prior Level of Function Bed Mobility: 6 Transfers: 6 Gait: 6 Indoor Mobility (Ambulation): Independent Prior Devices Use: Walker Self Care: Needed Some Help Functional Cognition: Needed Some Help Current Level of Fuctioning Roll Left to Right: 4 Sit to Lyin (SBA) Lying to Sitting/Side of Bed: 3 (Min A) Sit to Stand: 4 (CGA) Chair/Chg-ie-Yjjda Xfer: 4 Car Transfer: 3 Does the Patient Walk: Yes Mode of Locomotion: Walk Anticipated Mode of Locomotion: Walk Walk 10 feet: 4 (CGA) Walk 50 ft with 2 Turns: 4 (CGA) Walk 150 ft: 4 (CGA) Walking 10ft on uneven surface: 4 Gait Assistive Device: FWW Does the Pt Use a Wheelchair: No #of Steps: 4 1 Step (curb): 4 4 Steps: 4 12 Steps: 88 Picking up an Object: 88 Eatin (Per pt report, he had no difficulties eating lunch prior to session.) Oral Hygiene: 3 (Pt completed task after set up on tray table. Pt able to put toothpaste on toothbrush, and brush his teeth as well as take his dentures out to brush them. OT provided min assist with rinsing dentures after he brushed them. ) Shower/Bathe Self: 4 (Sponge Bath: Pt able to wash all parts with increased time and CGA during stand for safety.) Upper Body Dressin (Pt impulsively stood up during task without warning in order to pull his shirt down. CGA required during stand.) Lower Body Dressin (Pt required assist threading BLEs into underwear, he was able to thread BLEs into pants, then manage clothing up with CGA during stand. ) On/Off Footwear: 4 (SBA during task, pt able to don/doff slipper socks with increased time. ) Toileting Hygiene: 4 (CGA during clothing management) Toilet Transfer: 4 (CGA on/off toilet) PM&R Allergy/Meds/Data Review Allergies Coded Allergies: SCOTTANo Known Allergies (Verified Allergy, Unknown, 08/24/05) Home Medications Scheduled Acetaminophen (Acetaminophen), 1,000 MG PO BID, (Reported) Aspirin (Aspirin EC), 81 MG PO DAILY, (Reported) Calcium Citrate/Vitamin D3 (Citracal-Vit D 200 mg-250 Tab), 1 TAB PO DAILY, (Reported) Cetirizine HCl (Cetirizine HCl), 10 MG PO DAILY, (Reported) Cranberry Extract (Cranberry Concentrate), 2 CAP PO DAILY, (Reported) Cyanocobalamin (Vitamin B-12) (Liquid B12), 15 ML PO DAILY, (Reported) Glucosamine/D3/Boswellia Mitzi (Osteo Bi-Flex Tablet), 1 EACH PO DAILY, (Reported) Isosorbide Mononitrate (Isosorbide Mononitrate ER), 30 MG PO DAILY, (Reported) Lidocaine (Lidocaine Pain Relief), 1 EACH TP 1999, (Reported) Memantine HCl (Memantine HCl), 10 MG PO BID, (Reported) Metoprolol Succinate (Metoprolol Succinate), 50 MG PO DAILY, (Reported) Mineral Oil (Mineral Oil), 2.5 ML LEFT EAR MONDAY @1999, (Reported) Multivit-Min/FA/Lycopene/Lut ([facility] Multivitamin Tab), 1 TAB PO DAILY, (Reported) Omeprazole (Omeprazole), 20 MG PO DAILY, (Reported) Ropinirole HCl (Ropinirole HCl), 1 MG PO 1800, (Reported) Sulfamethoxazole/Trimethoprim (Sulfamethoxazole-Tmp Ss Tablet), 0.5 EACH PO DAILY Warfarin Sodium (Warfarin Sodium), 4 MG PO SUN,MON,WED,FR,SAT, (Reported) Warfarin Sodium (Jantoven), 2 MG PO TUES,THURS, (Reported) l [place]/B Bifidum/B Longum (iVideosongs [employer] Capsule), 1 EACH PO DAILY, (Reported) Scheduled PRN Hydrocodone/Acetaminophen (Hydrocodone/Acetaminophen 5 MG/325 MG TAB), 0.5 TAB PO Q4 -6H PRN for PAIN-MODERATE (5-7), (Reported) Meclizine HCl (Meclizine HCl), 25 MG PO TID PRN for DIZZINESS, (Reported) Ondansetron HCl (Zofran), 4 MG PO BID PRN for NAUSEA/VOMITING-1ST LINE, (Reported) Discontinued Medications A-Cysteine/Me-Cobal/Lm-Folate (Cerefolin Nac Tablet), 1 TAB PO DAILY, (Reported) Discontinued Reason: Prescription changed Acetaminophen (Tylenol), 1,000 MG PO BID, (Reported) Discontinued Reason: Duplicate Order Aspirin (Aspirin Ec 81 Mg), 81 MG PO DAILY, (Reported) Discontinued Reason: No Longer Taking Calcium Citrate/Vitamin D3 (Citracal 250 Mg + D Tablet), 1 EACH PO DAILY @ 1800, (Reported) Discontinued Reason: Duplicate Order Hydrocodone Bit/Acetaminophen (Lorcet Plus 10/325 Mg), 1 EA PO Q4H PRN for MODERATE PAIN Discontinued Reason: Duplicate Order L. Acidophilus/L.bulgaricus (Lactobacillus Tablet), 1 TAB PO DAILY, (Reported) Discontinued Reason: Duplicate Order Lisinopril (Prinivil), 20 MG PO DAILY, (Reported) Discontinued Reason: No Longer Taking Lmfol Ca/Acetyl/Mb12/Algal Oil (Cerefolin Nac Caplet), 1 EACH PO DAILY, (Reported) Discontinued Reason: No Longer Taking Melatonin (Melatonin), 3 MG PO HS PRN for SLEEP, (Reported) Discontinued Reason: Duplicate Order Melatonin/Pyridoxine HCl (B6) (Melatonin 3 mg Tablet), 3-9 MG PO HS PRN for SLEEP, (Reported) Discontinued Reason: No Longer Taking Memantine HCl (Namenda Xr), 28 MG PO DAILY, (Reported) Discontinued Reason: No Longer Taking Metoprolol Succinate (Toprol Xl), 50 MG PO HS, (Reported) Discontinued Reason: No Longer Taking Mu-Vits-Min Th/Lycopene/Lutein (Centrum Silver Tablet), 1 EACH PO DAILY, (Reported) Discontinued Reason: Duplicate Order [place]-3/Dha/Epa/Fish Oil (Fish Oil [place]-3 Softgel), 1 EACH PO DAILY, (Reported) Discontinued Reason: No Longer Taking Omeprazole (Prilosec 20 Mg), 20 MG PO BID, (Reported) Discontinued Reason: Duplicate Order Pyridoxine/Melatonin (Melatonin 3 Mg Tablet), 3-9 MG PO HS PRN for SLEEP, (Reported) Discontinued Reason: Prescription changed Rivastigmine (Exelon Patch 9.5 Mg), 13.3 MG TD HS, (Reported) Discontinued Reason: No Longer Taking Ropinirole HCl (Ropinirole HCl), 1 MG PO DAILY, (Reported) Discontinued Reason: Duplicate Order Sulfamethoxazole/Trimethoprim (Bactrim Ds Tablet), 0.5 TAB PO DAILY, (Reported) Discontinued Reason: Duplicate Order Sulfamethoxazole/Trimethoprim (Bactrim Ds Tablet), 0.5 TAB PO HS, (Reported) Tramadol HCl (Ultram), 50 MG PO Q12H PRN for PAIN Discontinued Reason: No Longer Taking Tramadol HCl (Ultram), 50 MG PO Q4H Discontinued Reason: No Longer Taking [Warfarin Sod], 4 MG PO SuTuThSa@18 Discontinued Reason: Duplicate Order Current Medications Current Medications Reviewed Review of Systems Constitutional: see HPI, malaise, weakness EENTM: no symptoms reported Respiratory: dyspnea on exertion Cardiovascular: no symptoms reported Gastrointestinal: constipation Genitourinary: no symptoms reported Musculoskeletal: back pain, joint pain Skin: no symptoms reported Psychiatric/Neurological: Anxiety, Depressed Physical Exam Physical Exam Vital Signs Vital Signs - First Documented 07/09/19 11:44 Temp 36.9 Pulse 73 Resp 18 B/P (MAP) 153/73 Pulse Ox 96 O2 Delivery Room Air Capillary Refill : Height, Weight, BMI Height: 5'8.00" Weight: 147lbs. 0.0oz. [id number]; 19.76 BMI Method:Stated General Appearance: No Apparent Distress, WD/WN, Chronically ill, Thin, Other (frail) Eyes: Bilateral Eye Normal Inspection, Bilateral Eye PERRL HEENT: PERRL/EOMI, Normal ENT Inspection, Pharynx Normal Neck: Full Range of Motion, Normal Inspection, Non Tender, Supple, Carotid Bruit Respiratory: Chest Non Tender, Lungs Clear, Normal Breath Sounds, No Accessory Muscle Use, No Respiratory Distress Cardiovascular: Regular Rate, Rhythm, No Edema, No Gallop, No JVD, No Murmur, Normal Peripheral Pulses, Other (click) Gastrointestinal: Normal Bowel Sounds, No Organomegaly, No Pulsatile Mass, Non Tender, Soft Back: Normal Inspection, No CVA Tenderness, Decreased Range of Motion Extremity: Normal Capillary Refill, Normal Inspection, Normal Range of Motion, Non Tender, No Calf Tenderness, No Pedal Edema Neurologic/Psychiatric: Alert, Oriented x3, No Motor/Sensory Deficits, Normal 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/Affect, 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 Norm as Tested, Disoriented (subtle poor recall), Motor Weakness (generalized legs) Skin: Normal Color, Warm/Dry Lymphatic: No Adenopathy PM&R Medical Assessment & Plan REHAB/MEDICAL ASSESSMENT AND PLAN: REHAB IMPAIRMENT GROUP: Debility ETIOLOGIC DIAGNOSIS: Fall with debility and acute blood loss anemia due to bleeding into iliopsoas muscle The comorbidities that impact the patients function and/or functional outcome by: advanced age, frail status, dementia/delirium, valve replacement, coumadin labile INR REHAB PLAN: The patient is being admitted to our comprehensive inpatient rehabilitation facility and can tolerate the intensity of service consisting of at least: 180 minutes of therapy a day, 5 out of 7 days a week Rehab treatment will consist of: PT OT ST will focus on regaining enough function in order to return back to [place] at [place] to live with his and maintain independence in ADL's and ambulation with walker The patient/family has a good understanding of our discharge process and will benefit from an interdisciplinary inpatient rehabilitation program. The patient has potential to make improvement and is in need of at least two of the following multidisciplinary therapies including but not limited to physical, occupational, speech, and prosthetics and orthotics. Additionally the patient will need services from respiratory, nutritional services, wound care, psychology, etc. (Customize this to each patient). Given the patients complex condition and risk of further medical complications, rehabilitation services cannot be safely or effectively provided at a lower level of care such as a retirement facility. BARRIERS TO DISCHARGE: Assisted living, dementia, poor reserve ESTIMATED LOS: 7 days DISPOSITION: AL RELEVANT CHANGES SINCE PREADMISSION SCREENING: I have compared the patients medical and functional status at the time of the preadmission screening and there are: no changes PROGNOSIS: Good REHABILITATION GOALS: 1. PT OT ST will focus on regaining enough function in order to return back to [place] at [place] to live with his and maintain independence in ADL's and ambulation with walker All the above goals were reviewed with the patient and he/she is in agreement. By signing this document, I acknowledge that I have personally performed a full physical examination on this patient within 24 hours of admission to this inpatient rehabilitation facility and have determined the patient to be able to tolerate the above course of treatment at an intensive level for a reasonable period of time. I will be completing a detailed individualized Plan of Care for this patient by day #4 of the patients stay based upon the Preadmission Screen, the Post-Admission Evaluation, and the therapy evaluations. 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 ICD Codes: Z95.4 - Mechanical heart valve present (7) Hypertension Status: Chronic ICD Codes: I10 - Hypertension (8) Insomnia Status: Chronic ICD Codes: G47.00 - Insomnia (9) Esophageal reflux Status: Chronic ICD Codes: K21.9 - Esophageal reflux (10) Fall Status: Acute ICD Codes: W19.XXXA - Unspecified fall, initial encounter Assessment/Plan Assessment and Plan Assess & Plan/Chief Complaint Assessment: Fall Iliopsoas muscle bleed s/p supratherapeutic INR with labile levels chronically Acute blood loss anemia Dementia Delirium Plan: Monitor pain INR per PCP Dr Egan consultation IRF protocol ZULEYKA BURLESON DO Jul 09, 2019 20:25
[2019-07-09] MEDS ORDERED: SENNA W/DOCUSATE (SENOKOT S) TABLET PO SCH (21:00)
[2019-07-10 05:00] VITALS: BP 152/70
[2019-07-10 07:06] LABS: BASOPHILS % (AUTO) 0 % (0-10); EOSINOPHILS # (AUTO) 0.1 10^3/uL (0.0-0.3); EOSINOPHILS % (AUTO) 1 % (0-10); HEMATOCRIT 35 % (40-54); LYMPHOCYTES # (AUTO) 0.7 X 10^3 (1.0-4.0); LYMPHOCYTES % (AUTO) 12 % (12-44); MEAN CORPUSCULAR HEMOGLOBIN 34 PG (25-34); MEAN CORPUSCULAR HGB CONC 31 G/DL (32-36); MEAN CORPUSCULAR VOLUME 107 FL (80-99); MEAN PLATELET VOLUME 9.4 FL (7.4-10.4); MONOCYTES # (AUTO) 0.7 X 10^3 (0.0-1.0); MONOCYTES % (AUTO) 12 % (0-12); NEUTROPHILS # (AUTO) 4.5 X 10^3 (1.8-7.8); NEUTROPHILS % (AUTO) 75 % (42-75); PLATELET COUNT 348 10^3/uL (130-400); RED CELL DISTRIBUTION WIDTH 19.6 % (10.0-14.5); WHITE BLOOD COUNT 6.1 10^3/uL (4.3-11.0)
[2019-07-10 07:27] LABS: ALANINE AMINOTRANSFERASE 40 U/L (0-55); ALBUMIN 3.6 GM/DL (3.2-4.5); ALKALINE PHOSPHATASE 57 U/L (40-136); BILIRUBIN,TOTAL 1.4 MG/DL (0.1-1.0); BUN/CREATININE RATIO 23; CALCIUM 8.9 MG/DL (8.5-10.1); CARBON DIOXIDE 22 MMOL/L (21-32); CHLORIDE 107 MMOL/L (98-107); CREATININE SERUM 0.78 MG/DL (0.60-1.30); GFR ESTIMATED > 60; GLUCOSE 83 MG/DL (70-105); INR 1.5 (0.8-1.4); POTASSIUM 3.8 MMOL/L (3.6-5.0); PROTHROMBIN TIME PATIENT 19.2 SEC (12.2-14.7); SODIUM 140 MMOL/L (135-145); TOTAL PROTEIN 6.1 GM/DL (6.4-8.2)
[2019-07-10] MEDS: SENNA W/DOCUSATE (SENOKOT S) TABLET PO SCH ×2 (08:00→19:44)
[2019-07-10] MEDS: polyethylene glycoL POWDER 17 GM (MIRALAX) PACK PO SCH ×2 (08:00→19:44)
[2019-07-10] MEDS: PANTOPRAZOLE 20 MG TABLET (PROTONIX) PO SCH ×2 (08:12→20:22)
[2019-07-10] MEDS: ACETAMINOPHEN 500 MG TAB (TYLENOL) PO SCH ×2 (08:12→20:22)
--- NOTE | 2019-07-10 08:29 | Occupational Ther Daily Note ---
OT Current Status-Daily Note Subjective Pt laying in bed at start of session, denied having pain. He was agreeable to OT tx this AM. ADL-Treatment Therapy Code Descriptions/Definitions Functional [place] Measure: 0=Not Assessed/NA 4=Minimal Assistance 1=Total Assistance 5=Supervision or Setup 2=Maximal Assistance 6=Modified [place] 3=Moderate Assistance 7=Complete IndependenceSCALE: Activities may be completed with or without assistive devices. 2-Hfxcvtpcuk-vhidteo completes the activity by him/herself with no assistance from a helper. 5-Set-up or Clean-up Assistance-helper sets up or cleans up; patient completes activity. [place] assists only prior to or following the activity. 4-Supervision or Touching Assistance-helper provides verbal cues and/or touching/steadying and/or contact guard assistance as patient completes activity. Assistance may be provided throughout the activity or intermittently. 3-Partial/Moderate Assistance-helper does LESS THAN HALF the effort. [place] lifts, holds or supports trunk or limbs, but provides less than half the effort. 2-Substantial/Maximal Assistance-helper does MORE THAN HALF the effort. [place] lifts or holds trunk or limbs and provides more than half the effort. 3-Hgdqrqhgc-mzmkou does ALL the effort. Patient does none of the effort to complete the activity. Or, the assistance of 2 or more helpers is required for the patient to complete the activity. If activity was not attempted, code reason: 7-Patient Refused. 9-Not Applicable-not attempted and the patient did not perform the activity before the current illness, exacerbation or injury. 10-Not Attempted due to Environmental Limitations-(lack of equipment, weather restraints, etc.). 88-Not Attempted due to Medical Conditions or Safety Concerns. Oral Hygiene (QC): 4 (CGA standing at sink) Upper Body Dressing (QC): 5 (set up assist) Lower Body Dressing (QC): 4 (CGA, pt able to doff briefs, then don briefs and pants with CGA during stand at FWW. He requrired increased time for task.) Toileting Hygiene (QC): 7 (pt denied needing to use the restroom during session.) Other Treatment Pt completed ADLs in room, then performed functional mobility to therapy area with FWW and CGA. To increase BUE strength and endurance, pt completed arm bike x15 mins, min resistance. 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 Pt states he is 76 now (according to pt's chart he is 84), OT asked pt when he was born and he provided his correct . Pt then completed standing activity in order to increase BUE functional endurance and strength as well as dynamic standing balance with tasks. Pt completed ring arc x2 sets each movement BUEs, crossing midline and bringing rings to ipsilateral side, and starting on the same side then bringing rings across midline. Pt took a seated rest break between each set. Pt completed BUE dowel exercises, seated x15 reps each of shoulder flexion (to approx 80 degrees), elbow flexion/extension, and wrist flexion/extension. After a rest break, pt returned to his room to his recliner. He was able to use his electric razor to shave, during task he turned the razor off and attempted to keep shaving. OT told pt that it had went off, assisting him with turning it back on. Pt then able to complete the rest of the task. Post OT session, pt seated in recliner, call light in reach and all needs met. chair alarm on. Education OT Patient Education: Correct positioning, Energy conservation, Exercise progr am, Modified ADL techniques, Progress toward Goal/Update tx plan, Purpose of tx/functional activities Teaching Recipient: Patient Teaching Methods: Discussion Response to Teaching: Verbalize Understanding OT Short Term Goals Short Term Goals Time Frame: Jul 24, 2019 Shower/bathe self: 5 Upper body dressin Lower body dressin OT Hotel Service Supervisor Goals Group Home Goals Time Frame: Aug 02, 2019 Eating (QC): 6 Oral Hygiene (QC): 6 Toileting Hygiene (QC): 6 Shower/Bathe Self (QC): 6 Upper Body Dressing (QC): 6 Lower Body Dressing (QC): 6 On/Off Footwear (QC): 6 Additional Goals: 1-Demonstrate ADL Tasks, 2-Verbalize Understanding, 3- ImproveStrength/Bill 1=Demonstrate adherence to instructed precautions during ADL tasks. 2=Patient will verbalize/demonstrate understanding of assistive devices/modifications for ADL. 3=Patient will improve strength/tolerance for activity to enable patient to perform ADL's. OT Education/Plan Problem List/Assessment Assessment: Decreased Activ Tolerance, Decreased Safety Aware, Decreased UE Strength, Impaired I ADL's, Impaired Self-Care Skills, Restricted Funct UE ROM Discharge Recommendations Plan/Recommendations: Continue POC Treatment Plan/Plan of Care Patient would benefit from OT for education, treatment and training to promote independence in ADL's, mobility, safety and/or upper extremity function for ADL's. Plan of Care: ADL Retraining, Functional Mobility, Group Exercise/Act as Ind, UE Funct Exercise/Act Treatment Duration: Aug 02, 2019 Frequency: At least 5 of 7 days/Wk (IRF) Estimated Hrs Per Day: 1.5 hours per day Agreement: Yes Rehab Potential: Fair Time/GCodes Start Time: 08:00 Stop Time: 09:15 Total Time Billed (hr/min): 75 Billed Treatment Time 1, ADL 2 (30'), EX 2 (30'), FA (15') [address] OT Jul 10, 2019 08:29
--- NOTE | 2019-07-10 08:36 | PM&R Progress Note ---
Subjective HPI/CC On Admission Date Seen by Provider: Jul 10, 2019 Time Seen by Provider: 08:45 Subjective/Events-last exam Pt doing very well Slum score is 9 Telesitter will be DC at night Had a BM today Working really hard Seems to be settling in very well Conferred with RN Reviewed therapy notes Checked meds and labs Review of Systems General: Fatigue Neurological: Incoordination, Confusion Objective Exam Vital Signs Vital Signs Date Time Temp Pulse Resp B/P (MAP) Pulse Ox O2 Delivery O2 Flow Rate FiO2 07/10/19 17:10 36.8 79 18 143/80 (101) 99 Room Air Capillary Refill : Less Than 3 Seconds General Appearance: No Apparent Distress, WD/WN, Chronically ill, Thin, Other (frail) HEENT: PERRL/EOMI, Normal ENT Inspection, Pharynx Normal Neck: Full Range of Motion, Normal Inspection, Non Tender, Supple, Carotid Bruit Respiratory: Chest Non Tender, Lungs Clear, Normal Breath Sounds, No Accessory Muscle Use, No Respiratory Distress Cardiovascular: Regular Rate, Rhythm, No Edema, No Gallop, No JVD, No Murmur, Normal Peripheral Pulses, Other (click) Gastrointestinal: Normal Bowel Sounds, No Organomegaly, No Pulsatile Mass, Non Tender, Soft Back: Normal Inspection, No CVA Tenderness, Decreased Range of Motion Extremity: Normal Capillary Refill, Normal Inspection, Normal Range of Motion, Non Tender, No Calf Tenderness, No Pedal Edema Neurologic/Psychiatric: Alert, Oriented x3, No Motor/Sensory Deficits, Normal Mood/Affect, 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 FIM Transfers Therapy Code Descriptions/Definitions Functional [place] Measure: 0=Not Assessed/NA 4=Minimal Assistance 1=Total Assistance 5=Supervision or Setup 2=Maximal Assistance 6=Modified [place] 3=Moderate Assistance 7=Complete IndependenceSCALE: Activities may be completed with or without assistive devices. 5-Mfjnxeacax-cieqvzp completes the activity by him/herself with no assistance fr om a helper. 5-Set-up or Clean-up Assistance-helper sets up or cleans up; patient completes activity. [place] assists only prior to or following the activity. 4-Supervision or Touching Assistance-helper provides verbal cues and/or touching/steadying and/or contact guard assistance as patient completes activity. Assistance may be provided throughout the activity or intermittently. 3-Partial/Moderate Assistance-helper does LESS THAN HALF the effort. [place] lifts, holds or supports trunk or limbs, but provides less than half the effort. 2-Substantial/Maximal Assistance-helper does MORE THAN HALF the effort. [place] lifts or holds trunk or limbs and provides more than half the effort. 9-Sbeyjsdol-svytmy does ALL the effort. Patient does none of the effort to complete the activity. Or, the assistance of 2 or more helpers is required for the patient to complete the activity. If activity was not attempted, code reason: 7-Patient Refused. 9-Not Applicable-not attempted and the patient did not perform the activity before the current illness, exacerbation or injury. 10-Not Attempted due to Environmental Limitations-(lack of equipment, weather restraints, etc.). 88-Not Attempted due to Medical Conditions or Safety Concerns. Roll Left to Right (QC): 4 Sit to Lying (QC): 4 (SBA) Sit to Stand (QC): 4 (CGA) Chair/Vkl-zo-Akiiv Xfer(QC): 4 Car Transfer (QC): 3 Gait Training Does the Patient Walk?: Yes Distance: 50+100+50 Walk 10 feet (QC): 4 (CGA) Walk 50 ft with 2 Turns(QC): 4 (CGA) Walk 150 ft (QC): 4 (CGA) Walking 10ft/uneven surface-QC: 4 Gait Assistive Device: FWW Wheelchair Training Does the Pt Use a Wheelchair?: No Stair Training #of Steps: 4 1 Step (curb) (QC): 4 4 Steps (QC): 4 12 Steps (QC): 88 Balance Picking up an Object (QC): 88 ADL-Treatment Eating (QC): 6 (Per pt report, he had no difficulties eating lunch prior to session.) Oral Hygiene (QC): 4 (CGA standing at sink) Shower/Bathe Self (QC): 4 (Sponge Bath: Pt able to wash all parts with increased time and CGA during stand for safety.) Upper Body Dressing (QC): 5 (set up assist) Lower Body Dressing (QC): 4 (CGA, pt able to doff briefs, then don briefs and pants with CGA during stand at FWW. He requrired increased time for task.) On/Off Footwear (QC): 4 (SBA during task, pt able to don/doff slipper socks wit h increased time. 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
--- NOTE | 2019-07-10 08:36 | Individualized Plan of Care ---
Individualized Plan of Care Rehab Nursing IPOC Order Admission Date Jul 09, 2019 at 10:20 Current Orders Orders Admission Order(Inpt,Obs,Sdc) (07/09/19 10:11) Vital Signs: Per Unit Policy ( 08,16,00 (07/09/19 10:11) Stepan [place] 09,21 (07/09/19 10:11) Sequential Compression Device Q4H (07/09/19 10:11) Supervisor Power Reactor-Inpt Rehab Con (07/09/19 10:11) Rehab Nursing Orders-Ipoc (07/09/19 10:11) Physical Therapy Rehab Orders (07/09/19 10:11) Occupational Therapy Rehab Ord (07/09/19 10:11) Speech Therapy Rehab Orders (07/09/19 10:11) Cbc With Automated Diff (07/10/19 06:00) Comprehensive Metabolic Panel (07/10/19 06:00) Intake & Output 06,14,22 (07/09/19 10:11) Precautions (Aru) (07/09/19 10:11) Weekly Weight WEEK (07/09/19 10:11) Rehab-Intensity Of Therapy (07/09/19 10:11) Initiate Admission Nursing Pro .admission (07/09/19 10:11) Alprazolam Tablet (Xanax Tablet) (07/09/19 10:15) Calcium Carbonate Chew Tablet (Antacid C (07/09/19 10:15) Diphenhydramine Tablet (Benadryl Tablet) (07/09/19 10:15) Docusate Sodium Capsule (Colace Capsule) (07/09/19 10:15) Bisacodyl Suppository (Dulcolax Supposit (07/09/19 10:15) Lactulose Oral Solution (Enulose Oral So (07/09/19 10:15) Na Phos/Na Biphos Enema (Fleet Enema Xiang (07/09/19 10:15) Guaifenesin/Codeine Syrup (Robitussin Ac (07/09/19 10:15) Loperamide Tablet (Imodium Tablet) (07/09/19 10:15) Melatonin Tablet (Melatonin Tablet) (07/09/19 10:15) Polyethylene Glycol Powder Pkt (Miralax (07/09/19 21:00) Ondansetron Oral Dissolve Tab (Zofran (07/09/19 10:15) Senna S Tablet (Senokot S Tablet) (07/09/19 21:00) Initiate Admission Nursing Pro .admission (07/09/19 10:11) Admission Arrival Bed Request (07/09/19 10:20) Admission Arrival Bed Request (07/09/19 10:20) Code/Resuscitation (07/09/19 12:21) Ensure Enlive (07/09/19 Dinner) Alprazolam Tablet (Xanax Tablet) (07/09/19 12:30) Acetaminophen Tablet (Tylenol Tablet) (07/09/19 21:00) Pantoprazole Tablet (Protonix Tablet) (07/09/19 21:00) Metoprolol Succinate (Xl) Tab (Toprol Xl (07/09/19 21:00) Ropinirole Tablet (Requip Tablet) (07/09/19 18:00) Warfarin Tablet (Coumadin Tablet) (07/09/19 18:00) Acetaminophen Tablet (Tylenol Tablet) (07/09/19 12:30) Hydrocodone/Apap 5/325 Tablet (Lortab 5 (07/09/19 12:30) Senna S Tablet (Senokot S Tablet) (07/09/19 21:00) Patient Visit (07/09/19 ) Speech Sound Lang Comp (07/09/19 ) Patient Visit (07/09/19 ) Pt Eval Moderate Complexity (07/09/19 ) Functional Activities, Ea 15 (07/09/19 ) Exercise Therap, Ea 15 Min (07/09/19 ) Gait Training, Ea 15 Min (07/09/19 ) Ambulate 08,12,20 (07/09/19 15:50) Sequential Compression Device Q4H (07/09/19 15:50) Dvt/Vte Risk - Notifiy Physici Q4H (07/09/19 15:50) General/Regular (07/09/19 Dinner) Consult Family Medicine (07/09/19 16:43) Protime With Inr (07/10/19 06:00) Warfarin Tablet (Coumadin Tablet) (07/10/19 08:45) Warfarin Tablet (Coumadin Tablet) (07/10/19 11:06) Patient Visit (07/10/19 ) Exercise Therap, Ea 15 Min (07/10/19 ) Functional Activities, Ea 15 (07/10/19 ) Gait Training, Ea 15 Min (07/10/19 ) Patient Visit (07/10/19 ) Treat. Speech/Lang/Voice (07/10/19 ) Rehab Nursing Orders: Ongoing Assess. of Cognitive Status, Ongoing Assess. of Function Status, Bladder Scan, Bladder Training, Bowel Management, Bowel Training, Disease Management & Educaiton, DVT Prophylaxis, Fall Prevention, Fluid/Electrolyte/Nutrition Mgmt, Infection Prevention, Medication Management & Education, Management of Risks & Complications, Management of Skin Intergrity, Nutrition Management, Pain Management, Patient/Family Support, Safety Management Intensity of Therapy to be met Patient to be seen: Min.3h per day/5 of 7d PT IPOC Problem List: Activity Tolerance, Functional Strength, Safety, Balance, Gait, Transfer, Bed Mobility, ROM Treatment Plan: Continue Plan of Care Bed Mobility, Education, Functional Activity Bill, Functional Strength, Group Therapy, Gait, Safety, Therapeutic Exercise, Transfers Treatment Duration: Jul 30, 2019 Frequency: At least 5 of 7 days/Wk (IRF) Estimated Hrs Per Day: 1.5 hours per day OT IPOC Problems: Decreased Activ Tolerance, Decreased Safety Aware, Decreased UE Strength, Impaired Funct Balance, Impaired I ADL's, Impaired Self-Care Skills, Restricted Funct UE ROM OT Treatment, Training and Edu: Yes Plan of Care: ADL Retraining, Functional Mobility, Group Exercise/Act as Ind, UE Funct Exercise/Act Treatment Duration: Aug 02, 2019 Frequency: At least 5 of 7 days/Wk (IRF) Estimated Hrs Per Day: 1.[address] IPOC Speech Therapy Treatment Plan: Continue Plan of Care Treatment Duration: Jul 09, 2019 Frequency: 5 times per week Estimated Hrs Per Day: .5 hour per day Supervisor Power Reactor/Case Mgmt Supervisor Power Reactor/Case Managemen: Discharge Planning Dietitian/Rotary Dump Operator Dietitian/Rotary Dump Operator to monitor nutritional status and make changes and/or recommendations as needed and work with speech pathology on dietary upgrades as the occur. Physician IPOC Medical Issues being managed closely and that require the 24 hour availability of a physician: Recent acute blood loss from bleeding into the iliopsoas muscle with transfusions required and dementia and advanced age will need close monitoring Medical Issues: Bowel/Bladder Function, DVT Prophylaxis, Falls Precautions, Fluid/Electrolyte/Nutrition Balance, Infection Protection, Pain Management Brief Synthesis of Preadmission Screen, Post-Admission Evaluation, and Therapy Evaluations: PT OT ST will all work together to help patient regain independent ADL's and ambulation ability with fall risk prevention Medical Prognosis: Good Anticipated Length of Stay: 7 days ZULEYKA BURLESON DO Jul 10, 2019 08:36
[2019-07-10] MEDS ORDERED: warFARin 1 MG (COUMADIN) TAB PO ONE (08:45)
--- NOTE | 2019-07-10 08:45 | Consultation ---
History of Present Illness History of Present Illness Patient Consulted On(jean-paul/time) 07/10/19 08:45 Allergies and Home Medications Allergies Coded Allergies: NKANo Known Allergies (Verified Allergy, Unknown, 08/24/05) Home Medications Acetaminophen 500 Mg Tablet, 1,000 MG PO BID, (Reported) TAKES 2 (500MG) TABS TWICE DAILY Aspirin 81 Mg Tablet.dr, 81 MG PO DAILY, (Reported) Calcium Citrate/Vitamin D3 1 Each Tablet, 1 TAB PO DAILY, (Reported) Cetirizine HCl 10 Mg Tablet, 10 MG PO DAILY, (Reported) Cranberry Extract 500 Mg Capsule, 2 CAP PO DAILY, (Reported) Cyanocobalamin (Vitamin B-12) 1,000 Mcg/15 Ml Liquid, 15 ML PO DAILY, (Reported) Glucosamine/D3/Boswellia Mitzi 1 Each Tablet, 1 EACH PO DAILY, (Reported) Hydrocodone/Acetaminophen 1 Each Tablet, 0.5 TAB PO Q4 -6H PRN for PAIN-MODERATE (5-7), (Reported) Isosorbide Mononitrate 30 Mg Tab.er.24h, 30 MG PO DAILY, (Reported) Lidocaine 1 Each Adh..patch, 1 EACH TP 1999, (Reported) APPLY TO THE RIGHT HIP AND REMOVE 12 HOURS LATER Meclizine HCl 25 Mg Tablet, 25 MG PO TID PRN for DIZZINESS, (Reported) Memantine HCl 10 Mg Tablet, 10 MG PO BID, (Reported) Metoprolol Succinate 50 Mg Tab.er.24h, 50 MG PO DAILY, (Reported) Mineral Oil 473 Ml Oil, 2.5 ML LEFT EAR MONDAY @1999, (Reported) Multivit-Min/FA/Lycopene/Lut 1 Each Tablet, 1 TAB PO DAILY, (Reported) Omeprazole 20 Mg Capsule.dr, 20 MG PO DAILY, (Reported) Ondansetron HCl 4 Mg Tab, 4 MG PO BID PRN for NAUSEA/VOMITING-1ST LINE, (Reported) Ropinirole HCl 1 Mg Tablet, 1 MG PO 1800, (Reported) Sulfamethoxazole/Trimethoprim 1 Each Tablet, 0.5 EACH PO DAILY Prescribed by: TORO VEGAS on 07/08/19 0928 Warfarin Sodium 4 Mg Tablet, 4 MG PO SUN,MON,MON,FR,SAT, (Reported) TAKES 4MG ON MONDAY,MONDAY,MONDAY,MONDAY AND MONDAY 2MG ON MONDAY AND MONDAY Warfarin Sodium 4 Mg Tablet, 2 MG PO ,, (Reported) TAKES 4MG ON MONDAY,MONDAY,MONDAY,MONDAY AND MONDAY 2MG ON MONDAY AND MONDAY l Gasseri/B Bifidum/B Longum 1 Each Capsule, 1 EACH PO DAILY, (Reported) Past Alwqzny-Biswlr-Ckwkdi Hx Past Med/Social Hx: Reviewed Nursing Past Med/Soc Hx, Reviewed and Corrections made Patient Social History Alcohol Use: Denies Use Recreational Drug Use: No Smoking Status: Former Smoker Type Used: Cigarettes Former Smoker, Quit: Jun 29, 1949 2nd Hand Smoke Exposure: No Recent Foreign Travel: No Contact w/Someone Who Travel: No Recent Infectious Disease Expo: No Recent Hopitalizations: No Immunizations Up To Date Tetanus Booster (TDap): Unknown Date of Pneumonia Vaccine: Mar 27, 2011 Date of Influenza Vaccine: Dec 30, 2018 Seasonal Allergies Seasonal Allergies: No Past Medical History Surgeries: Yes Abdominal, Appendectomy, Gallbladder, Joint Replacement, Neurological, Open Heart Surgery, Orthopedic, Rectal, Valve Replacement Respiratory: No Cardiac: Yes (AORTIC VALVE REPLACEMENT; .) Hypertension, Valvular Heart Disease 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 ) Dementia, Traumatic Brain Injury Reproductive Disorders: No Sexually Transmitted Disease: No HIV/AIDS: No Genitourinary: No Gastrointestinal: Yes Gastroesophageal Reflux, Gall Bladder Disease Musculoskeletal: Yes (CHRONIC ROTATOR CUFF PROBLEMS) Arthritis Endocrine: No HEENT: No Hearing Impairment: Hard of Hearing, Bilateral Hearing Aide Cancer: Yes Skin Psychosocial: No Integumentary: No Blood Disorders: No Adverse Reaction/Blood Tranf: No Family Medical History Alzheimer's disease Arthritis 19 MOTHER Cardiovascular disease G8 BROTHER Colon cancer 19 MOTHER Completed stroke 19 MOTHER Dementia 19 FATHER Myocardial infarction G8 BROTHER No Family History of: AIDS Abdominal aortic aneurysm [place]'s disease Alcoholism Asthma Cataracts Congenital disease Diabetes mellitus Drug abuse Hypertension Kidney disease Parkinson's disease Prostate cancer Psychosocial problem Respiratory disorder Seizure disorder Severe allergy Thyroid disease Tuberculosis Heart Disease, Hypertension, Stroke Physical Exam Vital Signs Vital Signs - First Documented 07/09/19 11:44 Temp 36.9 Pulse 73 Resp 18 B/P (MAP) 153/73 Pulse Ox 96 O2 Delivery Room Air Capillary Refill : Less Than 3 Seconds Height, Weight, BMI Height: 5'8.00" Weight: 147lbs. 0.0oz. 66.486364wh; 19.76 BMI Method:Stated Assessment/Plan Assessment/Plan Problems: (1) Debility (2) Supratherapeutic INR (3) Acute blood loss anemia (4) Dementia (5) Chronic anticoagulation (6) Mechanical heart valve present (7) Hypertension (8) Insomnia (9) Esophageal reflux (10) Fall Clinical Quality Measures DVT/VTE Risk/Contraindication: Risk Factor Score Per Nursin RFS Level Per Nursing on Admit: 2=Moderate TORO VEGAS MD Jul 10, 2019 08:45
[2019-07-10] MEDS ORDERED: warFARin 1 MG (COUMADIN) TAB ONE (11:06)
--- NOTE | 2019-07-10 11:34 | NUR ---
I REVIEWED THE [facility] REC SO THEY COULD BE CONTINUED
--- NOTE | 2019-07-10 11:42 | Speech Therapy Daily Note ---
Speech Daily Progress Note Subjective Date Seen by Provider: Jul 10, 2019 Time Seen by Provider: 00:30 Patient was alert and participated well with skilled therapy. Objective Patient completed general info q/a as well as a word chain at 75% with min to mod cues. Patient was able to self correct without cues at 20%. Assessment Assessment Current Status: Good Progress Treatment Plan Continue Plan of Care Speech Short Term Goals Short Term Goals Short Term Goals 1) The patient will complete memory tasks related to his daily needs at 80% or greater. 2) The patient will complete problem solving tasks related to his daily needs at 80% or greater. 3) The patient will complete safety awareness tasks related to his daily needs at 80% or greater. Speech Writer Producer Goals Writer Producer Goals Patient will improve cognitive-communication necessary for safety and daily living tasks with minimal assist. Speech-Plan Patient/Family Goals Patient/Family Goals: Patient plans on returning to his [place] apartment where he lives with his . Treatment Plan Speech Therapy Treatment Plan: Continue Plan of Care Frequency: 5 times per week Estimated Hrs Per Day: .5 hour per day Rehab Potential: Fair Barriers to Learning: Patient has moderate dementia Pt/Family Agrees to Plan: Yes Safety Risks/Education Teaching Recipient: Patient Teaching Methods: Demonstration, Discussion Response to Teaching: Verbalize Understanding, Return Demonstration Education Topics Provided: Continued safety and communication of wants/needs Time Speech Therapy Time In: 11:00 Speech Therapy Time Out: 11:30 Total Billed Time: 30 Billed Treatment Time 1BLAKE [address] ST Jul 10, 2019 11:42
--- NOTE | 2019-07-10 12:11 | Physical Therapy Daily Note ---
PT Daily Note-Current Subjective Pt sitting in recliner visiting with family upon arrival. Pt agrees to PT. Pt continues to demonstrate dementia like qualities during Rx. Pain Numeric Pain Scale: 5-Moderate Pain Location: Right Location Body Site: Hip Pain Description: Ache, Tightness Mental Status Patient Orientation: Person, Confused, Place Transfers SCALE: Activities may be completed with or without assistive devices. 1-Wnynlklaqw-dixtmhi completes the activity by him/herself with no assistance from a helper. 5-Set-up or Clean-up Assistance-helper sets up or cleans up; patient completes activity. [place] assists only prior to or following the activity. 4-Supervision or Touching Assistance-helper provides verbal cues and/or touching/steadying and/or contact guard assistance as patient completes activity. Assistance may be provided throughout the activity or intermittently. 3-Partial/Moderate Assistance-helper does LESS THAN HALF the effort. [place] lifts, holds or supports trunk or limbs, but provides less than half the effort. 2-Substantial/Maximal Assistance-helper does MORE THAN HALF the effort. [place] lifts or holds trunk or limbs and provides more than half the effort. 0-Hiwuweazj-maglqh does ALL the effort. Patient does none of the effort to complete the activity. Or, the assistance of 2 or more helpers is required for the patient to complete the activity. If activity was not attempted, code reason: 7-Patient Refused. 9-Not Applicable-not attempted and the patient did not perform the activity before the current illness, exacerbation or injury. 10-Not Attempted due to Environmental Limitations-(lack of equipment, weather restraints, etc.). 88-Not Attempted due to Medical Conditions or Safety Concerns. Sit to Stand (QC): 5 Toilet Transfer (QC): 5 Weight Bearing Right Lower Extremity: Right Full Weight Bearing Left Lower Extremity: Left Full Weight Bearing Gait Training Does the Patient Walk?: Yes Distance: 150' x2 Walk 10 feet (QC): 5 Walk 50 ft with 2 Turns(QC): 5 Walk 150 ft (QC): 5 Gait Persons Needed: 1 Gait Assistive Device: FWW Pt walks with kyphotic posture & HOME CHILD CARE PROVIDER encourages pt to walk closer to FWW for improved posture. Wheelchair Training Does the Pt Use a Wheelchair?: No Stair Training Stair Training: Handrails/: 2 handrails #of Steps: 8 1 Step (curb) (QC): 4 4 Steps (QC): 4 Stairs: Pattern: Step to Pt ambulates 4 steps then RB then additional 4 steps. Exercises Supine Ex: Ankle pumps, Quad Set, Glut sets, Heel Slides, Short Arc Quads, Stra ight leg raise, Hip abd/add Supine Reps: 10 Seated Therapy Exercises: Ankle pumps, Long arc quads, Hip flexion, Kicking activity, Hip abd/add Seated Reps: 10 NuStep Minutes: 15 NuStep Workload: 4 Treatments Pt transfers to standing and ambulates in hallway. Pt uses NuStep for 15m at WL 4 then takes RB before completing Seated Ex. Pt ambulates set of stairs then RB then another set. Pt completes Supine EX with bolster under legs for comfort. Pt ambualtes in hallway before returning to room. Pt uses restroom before resting in recliner. Pt has all needs met, call light in hand. Assessment Current Status: Fair Progress Pt has difficulty with problem solving and sequencing especially with safety. PT Short Term Goals Short Term Goals Time Frame: Jul 16, 2019 Roll Left & Right: 6 Sit to lyin (SBA) Lying to sitting on side of be: 4 (SBA) Sit to stand: 4 (SBA) Chair/afi-bc-vkebt transfer: 4 (SBA) Walk 10 feet: 4 (SBA) Walk 50 feet with two turns: 4 (SBA) Walk 150 feet: 4 (SBA) PT Acid Bath Mixer Goals Usp Goals PT Acid Bath Mixer Goals Time Frame: Jul 30, 2019 Roll Left & Right (QC): 6 Sit to Lying (QC): 6 Lying-Sitting on Side/Bed(QC): 6 Sit to Stand (QC): 6 Chair/Bxm-ie-Bvoir Xfer(QC): 6 Toilet Transfer (QC): 6 Car Transfer (QC): 6 Walk 10 feet (QC): 6 Walk 50ft with 2 Turns (QC): 6 Walk 150 ft (QC): 6 Walking 10ft on Uneven Surface: 6 1 Step (curb) (QC): 4 (SBA) 4 Steps (QC): 4 (SBA) PT Plan Problem List Problem List: Activity Tolerance, Functional Strength, Safety, Gait Treatment/Plan Treatment Plan: Continue Plan of Care Treatment Plan: Bed Mobility, Education, Functional Activity Bill, Functional Strength, Group Therapy, Gait, Safety, Therapeutic Exercise, Transfers Treatment Duration: Jul 30, 2019 Frequency: At least 5 of 7 days/Wk (IRF) Estimated Hrs Per Day: 1.5 hours per day Patient and/or Family Agrees t: Yes Safety Risks/Education Patient Education: Gait Training, Transfer Techniques, Steps, Correct Positioning, Safety Issues Teaching Recipient: Patient Teaching Methods: Discussion Response to Teaching: Reinforcement Needed Time/GCodes Time In: 915 Time Out: 1030 Total Billed Treatment Time: 75 Total Billed Treatment 1, EX x3 (45m), FA (15m) & GT (15m) SUSY MELVIN HOME CHILD CARE PROVIDER Jul 10, 2019 12:11
--- NOTE | 2019-07-10 15:07 | NUR ---
"RD ASSESSMENT PMHx: HTN; dementia; GERD; CA(skin); TBI PT INTERACTION: Pt was awake and pleasant during nutrition assessment. Pt states current appetite is good and it has gotten better over the last few days. Note avg PO intake between 25-50% x3d, per chart review. Pt states following a regular diet at home, and has no issues with chewing/swallowing food. Pt states no recent issues with n/v/c/d at this time, and that his last BM was 07/09. Pt states no recent wt changes. Note unable to determine recent wt hx, per chart review. ABNORMAL NUTRITION-RELATED LAB VALUES LOW: Pro 6.1 HIGH: bili 1.4; AST 40 Est. kcal needs: 9730-1260 kcal | 25-30 kcal/kg Est. Pro needs: 57-68 g Pro | 1.0-1.2 g Pro/kg PES STATEMENT: Inadequate oral intake (NI-2.1) related to loss of appetite as evidenced by pt interview | avg PO intake 25-50% x3d INTERVENTION: Continue with current diet order of Regular diet. Pt may benefit from nutrition supplementation to increase kcal intake. Will continue to follow and reassess as pt needs, intake, and status change. MONITOR/EVALUATE: PO Intake; Plan of Care; Hydration Status; Weight Status; Lab Values Frandy Flores, , RD, LD"
--- NOTE | 2019-07-10 15:21 | NUR ---
CM/SS ADMISSION Patient was admitted to ARU 07/09/19 from [facility] for debility. Other comorbidities, in part, are severe anemia from supratherapeutic INR and bleeding into iliopsoas muscle, dementia/confusion. Patient resides with his spouse Estrella [facility] [place]. On 06/11/19 he fell but did not seek medical attention even though he had a large right gluteal hematoma and uncontrolled hip pain. On 07/02/19 he slid out of bed at the assisted living, EMS was called to assist lift but patient was too weak to stand and he was transported to [facility] ED. As noted, patient resides inside at [facility], he and his spouse have been in assisted living several years but did recently move from [facility] to [place]. DME: Uses FWW, has cane. OT staff indicate a shower chair is needed, will explore. This is a private pay item family will need to purchase on his behalf. PCP: Dr. Nay Martinez MD, [facility] INSURANCE: Medicare, [employer] [facility] Supplement PHARMACY: [facility] CONTACTS: Patient has 3 sons. Drama Therapist visited with family members this a.m., Dr. Ted Seay and spouse Melissa and their daughter. Patient's son Mario brought Estrella out today for a brief visit. Dr. Ted Seay MD, son [phone] Melissa Seay, Ted's [phone] Drama Therapist explained the weekly team conference summary purpose and process, patient reviewed his Summary thoroughly. He expressed that he does want to stay any longer than needed, and seemed gloomy at the thought of being reviewed next Monday for the prospect of discharge. When asked what he misses the most, he quickly responded HIS . They have been approx 67 years per family. Drama Therapist reframed his length of stay, that if he got stronger and the team felt he could return to [facility] and walk independently with his FWW, he could be released before the target date if appropriate. [facility] Director Maggie will need to be contacted to assess patient for return prior to discharge. Drama Therapist did call DIL/Melissa to update about patient's gloominess about staying an approximate week. She indicated family was aware and that he really is more comfortable in the presence of his . The overall goal is for them to be together, they remain hopeful he qualifies to return to [facility] as before.
[2019-07-10 17:10] VITALS: BP 143/80
[2019-07-10] MEDS: warFARin 2 MG (COUMADIN) TAB PO SCH (18:30)
[2019-07-10] MEDS: rOPINIRole 1 MG (REQUIP) TABLET PO SCH (18:30)
[2019-07-10] MEDS: meTOproloL SUCCINATE 50 MG (TOPROL XL) TAB PO SCH (20:22)
[2019-07-11 05:07] VITALS: BP 169/77
[2019-07-11] MEDS: ACETAMINOPHEN 500 MG TAB (TYLENOL) PO SCH ×2 (08:12→19:58)
[2019-07-11] MEDS: PANTOPRAZOLE 20 MG TABLET (PROTONIX) PO SCH ×2 (08:12→19:57)
[2019-07-11] MEDS: SENNA W/DOCUSATE (SENOKOT S) TABLET PO SCH ×2 (08:13→19:21)
[2019-07-11] MEDS: polyethylene glycoL POWDER 17 GM (MIRALAX) PACK PO SCH ×2 (08:13→19:21)
--- NOTE | 2019-07-11 08:25 | Occupational Ther Daily Note ---
OT Current Status-Daily Note Subjective Pt sitting upright in recliner at start of session, agreeable to OT tx. ADL-Treatment Therapy Code Descriptions/Definitions Functional [place] Measure: 0=Not Assessed/NA 4=Minimal Assistance 1=Total Assistance 5=Supervision or Setup 2=Maximal Assistance 6=Modified [place] 3=Moderate Assistance 7=Complete IndependenceSCALE: Activities may be completed with or without assistive devices. 1-Itahtekitc-rgdpiwn completes the activity by him/herself with no assistance from a helper. 5-Set-up or Clean-up Assistance-helper sets up or cleans up; patient completes activity. [place] assists only prior to or following the activity. 4-Supervision or Touching Assistance-helper provides verbal cues and/or touching/steadying and/or contact guard assistance as patient completes activity. Assistance may be provided throughout the activity or intermittently. 3-Partial/Moderate Assistance-helper does LESS THAN HALF the effort. [place] lifts, holds or supports trunk or limbs, but provides less than half the effort. 2-Substantial/Maximal Assistance-helper does MORE THAN HALF the effort. [place] lifts or holds trunk or limbs and provides more than half the effort. 3-Lcvvcbuwn-blpdds does ALL the effort. Patient does none of the effort to complete the activity. Or, the assistance of 2 or more helpers is required for the patient to complete the activity. If activity was not attempted, code reason: 7-Patient Refused. 9-Not Applicable-not attempted and the patient did not perform the activity before the current illness, exacerbation or injury. 10-Not Attempted due to Environmental Limitations-(lack of equipment, weather restraints, etc.). 88-Not Attempted due to Medical Conditions or Safety Concerns. Shower/Bathe Self (QC): 7 (Pt declines showering today, stating he is aready dressed.) On/Off Footwear: 3 (Pt doffed slipper socks, and donned regular socks. Then he was able to don L shoe without assistance, but he required assistance putting his foot in his right shoe. Pt then able to tie laces on both shoes.) Toileting Hygiene (QC): 7 (Pt reports he has already went to the bathroom a couple times this morning.) Other Treatment Pt seated upright in recliner, with his regular pants and shirt on. He denied showering today, stating he has already gotten dressed. He was agreeable to taking a shower tomorrow. Pt then requested to put on his socks and shoes as well as his suspenders. Pt required min A with shoes. He stood up while he put on his suspenders, needing assistance with clipping them in the back, noted 1 LOB requiring min A to correct. Pt then able to hook suspenders in the front with CGA. Nurse arrived to give pt meds. Pt performed functional mobility to therapy gym. Pt completed arm bike x15 mins, mod resistance in order to increase BUE strength and functional endurance, pt took rest breaks as needed without cues. In order to increase functional endurance and fine motor strength pt placed/removed x100 1" pegs from foam pegboard, he participated in cognitive questions based on mathematics in order to increase dual tasking. Noted pt had slight difficulty with dual tasking, as he was thinking of the answer to the question, he stopped placing pegs. Pt then took a rest break before completing dowel exercises in order to increase BUE functional endurance and strength. Pt participated in activity where he hit a light ball that was tossed in his direction with a dowel pradip, pt able to hit ball each time without missing. He required a rest break after a few mins before he continued. Pt took a rest break, then completed x15 reps, 2 sets each of the following with the dowel pradip, 1 lb weight attached: shoulder flexion, elbow flexion/extension, & wrist flexion/extension. Post OT session, pt seated in chair in therapy gym, PT present for tx. Education OT Patient Education: Correct positioning, Energy conservation, Exercise program, Modified ADL techniques, Progress toward Goal/Update tx plan, Purpose of tx/functional activities, Safety issues, Transfer techniques Teaching Recipient: Patient Teaching Methods: Discussion Response to Teaching: Verbalize Understanding OT Short Term Goals Short Term Goals Time Frame: Jul 24, 2019 Shower/bathe self: 5 Upper body dressin Lower body dressin OT Cloth Piecer Goals Cloth Piecer Goals Time Frame: Aug 02, 2019 Eating (QC): 6 Oral Hygiene (QC): 6 Toileting Hygiene (QC): 6 Shower/Bathe Self (QC): 6 Upper Body Dressing (QC): 6 Lower Body Dressing (QC): 6 On/Off Footwear (QC): 6 Additional Goals: 1-Demonstrate ADL Tasks, 2-Verbalize Understanding, 3- ImproveStrength/Bill 1=Demonstrate adherence to instructed precautions during ADL tasks. 2=Patient will verbalize/demonstrate understanding of assistive devices/modifications for ADL. 3=Patient will improve strength/tolerance for activity to enable patient to perform ADL's. OT Education/Plan Problem List/Assessment Assessment: Decreased Activ Tolerance, Decreased UE Strength, Impaired Funct Balance, Impaired I ADL's, Impaired Self-Care Skills Discharge Recommendations Plan/Recommendations: Continue POC Treatment Plan/Plan of Care Patient would benefit from OT for education, treatment and training to promote independence in ADL's, mobility, safety and/or upper extremity function for ADL's. Plan of Care: ADL Retraining, Functional Mobility, Group Exercise/Act as Ind, UE Funct Exercise/Act Treatment Duration: Aug 02, 2019 Frequency: At least 5 of 7 days/Wk (IRF) Estimated Hrs Per Day: 1.5 hours per day Agreement: Yes Rehab Potential: Fair Time/GCodes Start Time: 08:00 Stop Time: 09:15 Total Time Billed (hr/min): 75 Billed Treatment Time 1, ADL (15'), FA 2 (30'), EX 2 (30') [address] OT Jul 11, 2019 08:24
--- NOTE | 2019-07-11 08:44 | PM&R Progress Note ---
Subjective HPI/CC On Admission Date Seen by Provider: Jul 11, 2019 Time Seen by Provider: 08:45 Subjective/Events-last exam Pt doing very well Discontinue telesitter since it is no longer necessary Worried about his at [facility] 11 PT and OT participation is good Had a BM this morning Seems to be settling in very well Conferred with RN Reviewed therapy notes Checked meds and labs Review of Systems General: Fatigue Neurological: Confusion Objective Exam Vital Signs Vital Signs Date Time Temp Pulse Resp B/P (MAP) Pulse Ox O2 Delivery O2 Flow Rate FiO2 07/11/19 20:03 Room Air 07/11/19 17:38 36.8 76 16 136/78 (97) 98 Capillary Refill : Less Than 3 Seconds General Appearance: No Apparent Distress, WD/WN, Chronically ill, Thin, Other (frail) HEENT: PERRL/EOMI, Normal ENT Inspection, Pharynx Normal Neck: Full Range of Motion, Normal Inspection, Non Tender, Supple, Carotid Bruit Respiratory: Chest Non Tender, Lungs Clear, Normal Breath Sounds, No Accessory Muscle Use, No Respiratory Distress Cardiovascular: Regular Rate, Rhythm, No Edema, No Gallop, No JVD, No Murmur, Normal Peripheral Pulses, Other (click) Gastrointestinal: Normal Bowel Sounds, No Organomegaly, No Pulsatile Mass, Non Tender, Soft Back: Normal Inspection, No CVA Tenderness, Decreased Range of Motion Extremity: Normal Capillary Refill, Normal Inspection, Normal Range of Motion, Non Tender, No Calf Tenderness, No Pedal Edema Neurologic/Psychiatric: Alert, Oriented x3, No Motor/Sensory Deficits, Normal Mood/Affect, prescription eyeglass maker II-XII Norm as Tested, Disoriented (subtle poor recall), Motor Weakness (generalized legs) Skin: Normal Color, Warm/Dry Lymphatic: No Adenopathy Results/Procedures Lab Patient resulted labs reviewed. FIM Transfers Therapy Code Descriptions/Definitions Functional [place] Measure: 0=Not Assessed/NA 4=Minimal Assistance 1=Total Assistance 5=Supervision or Setup 2=Maximal Assistance 6=Modified [place] 3=Moderate Assistance 7=Complete IndependenceSCALE: Activities may be completed with or without assistive devices. 2-Plmejganou-larksrx completes the activity by him/herself with no assistance from a helper. 5-Set-up or Clean-up Assistance-helper sets up or cleans up; patient completes activity. [place] assists only prior to or following the activity. 4-Supervision or Touching Assistance-helper provides verbal cues and/or touching/steadying and/or contact guard assistance as patient completes activity. Assistance may be provided throughout the activity or intermittently. 3-Partial/Moderate Assistance-helper does LESS THAN HALF the effort. [place] lifts, holds or supports trunk or limbs, but provides less than half the effort. 2-Substantial/Maximal Assistance-helper does MORE THAN HALF the effort. [place] lifts or holds trunk or limbs and provides more than half the effort. 4-Pzoyzskrf-mdgzko does ALL the effort. Patient does none of the effort to complete the activity. Or, the assistance of 2 or more helpers is required for the patient to complete the activity. If activity was not attempted, code reason: 7-Patient Refused. 9-Not Applicable-not attempted and the patient did not perform the activity before the current illness, exacerbation or injury. 10-Not Attempted due to Environmental Limitations-(lack of equipment, weather restraints, etc.). 88-Not Attempted due to Medical Conditions or Safety Concerns. Roll Left to Right (QC): 4 Sit to Lying (QC): 4 (SBA) Sit to Stand (QC): 5 Chair/Gbi-xg-Czeuh Xfer(QC): 4 Car Transfer (QC): 3 Gait Training Does the Patient Walk?: Yes Distance: 150' x2 Walk 10 feet (QC): 5 Walk 50 ft with 2 Turns(QC): 5 Walk 150 ft (QC): 5 Walking 10ft/uneven surface-QC: 4 Gait Persons Needed: 1 Gait Assistive Device: FWW Wheelchair Training Does the Pt Use a Wheelchair?: No Stair Training Stair Training: Handrails/: 2 handrails #of Steps: 8 1 Step (curb) (QC): 4 4 Steps (QC): 4 12 Steps (QC): 88 Stairs: Pattern: Step to Balance Picking up an Object (QC): 88 ADL-Treatment Eating (QC): 6 (Per pt report, he had no difficulties eating lunch prior to session.) Oral Hygiene (QC): 4 (CGA standing at sink) Shower/Bathe Self (QC): 7 (Pt declines showering today, stating he is aready dressed.) Upper Body Dressing (QC): 5 (set up assist) Lower Body Dressing (QC): 4 (CGA, pt able to doff briefs, then don briefs and pants with CGA during stand at FWW. He requrired increased time for task.) On/Off Footwear (QC): 3 (Pt doffed slipper socks, and donned regular socks. Then he was able to don L shoe without assistance, but he required assistance putting his foot in his right shoe. Pt then able to tie laces on both shoes.) Toileting Hygiene (QC): 7 (Pt reports he has already went to the bathroom a couple times this morning.) Toilet Transfer (QC): 4 (CGA on/off toilet) Assessment/Plan Assessment and Plan Assess & Plan/Chief Complaint Assessment: Fall Iliopsoas muscle bleed s/p supratherapeutic INR with labile levels chronically Acute blood loss anemia Dementia Delirium Plan: Monitor pain INR per PCP Dr Egan consultation IRF protocol Fall risk (1) Debility (2) Supratherapeutic INR (3) Acute blood loss anemia Status: Resolved (4) Dementia Status: Chronic (5) Chronic anticoagulation Status: Chronic (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
--- NOTE | 2019-07-11 10:31 | Physical Therapy Daily Note ---
PT Daily Note-Current Subjective Patient has 2/10 pain in L hip. Motivated to begin session. Appearance Patient returned to room with call light and tray in reach. Chair arm set and patient safely in chair. Mental Status Patient Orientation: Person, Confused, Eyes Open Transfers SCALE: Activities may be completed with or without assistive devices. 0-Jcezwgyeos-axjwnfg completes the activity by him/herself with no assistance from a helper. 5-Set-up or Clean-up Assistance-helper sets up or cleans up; patient completes activity. [place] assists only prior to or following the activity. 4-Supervision or Touching Assistance-helper provides verbal cues and/or touching/steadying and/or contact guard assistance as patient completes activity. Assistance may be provided throughout the activity or intermittently. 3-Partial/Moderate Assistance-helper does LESS THAN HALF the effort. [place] lifts, holds or supports trunk or limbs, but provides less than half the effort. 2-Substantial/Maximal Assistance-helper does MORE THAN HALF the effort. [place] lifts or holds trunk or limbs and provides more than half the effort. 7-Zwgtkvott-mbfxca does ALL the effort. Patient does none of the effort to complete the activity. Or, the assistance of 2 or more helpers is required for the patient to complete the activity. If activity was not attempted, code reason: 7-Patient Refused. 9-Not Applicable-not attempted and the patient did not perform the activity before the current illness, exacerbation or injury. 10-Not Attempted due to Environmental Limitations-(lack of equipment, weather restraints, etc.). 88-Not Attempted due to Medical Conditions or Safety Concerns. Sit to Stand (QC): 4 (CGA) Chair/Zce-im-Lblpt Xfer(QC): 4 (CGA) Weight Bearing Right Lower Extremity: Right Full Weight Bearing Left Lower Extremity: Left Full Weight Bearing Gait Training Does the Patient Walk?: Yes Distance: 100ft x3+150 Walk 10 feet (QC): 4 (CGA) Walk 50 ft with 2 Turns(QC): 4 (CGA) Walk 150 ft (QC): 4 (CGA) Gait Assistive Device: FWW Patient ambulated well with forward posture. Patient knew when to take breaks to conserve energy after being educated to at his discrimination. Verbal cues for posture and looking up to see where patient is going. Balance Picking up an Object (QC): 4 (CGA) Exercises Seated Therapy Exercises: Ankle pumps (4x10 ), Sit to stand (5x), Long arc qu ads (3x10), Hip flexion (3x10) Standing: Hamstring curls (2x10), Heel/toe raises (2x10), Mini squats (2x10) NuStep Minutes: 15 NuStep Workload: 4 Treatments Cone tapping with toes 2x10 with verbal cues to slow down and complete activity controlled. Assessment Current Status: Good Progress Patient ambulated at fast rate with forward posture. Patient was able to complete all exercises assisted with breaks between sets. PT Short Term Goals Short Term Goals Time Frame: Jul 16, 2019 Roll Left & Right: 6 Sit to lyin (SBA) Lying to sitting on side of be: 4 (SBA) Sit to stand: 4 (SBA) Chair/cju-ww-xwxxg transfer: 4 (SBA) Walk 10 feet: 4 (SBA) Walk 50 feet with two turns: 4 (SBA) Walk 150 feet: 4 (SBA) PT Jail Goals [employer] Services Dispatcher Goals PT Jail Goals Time Frame: Jul 30, 2019 Roll Left & Right (QC): 6 Sit to Lying (QC): 6 Lying-Sitting on Side/Bed(QC): 6 Sit to Stand (QC): 6 Chair/Hek-sz-Mlwsg Xfer(QC): 6 Toilet Transfer (QC): 6 Car Transfer (QC): 6 Walk 10 feet (QC): 6 Walk 50ft with 2 Turns (QC): 6 Walk 150 ft (QC): 6 Walking 10ft on Uneven Surface: 6 1 Step (curb) (QC): 4 (SBA) 4 Steps (QC): 4 (SBA) PT Plan Problem List Problem List: Activity Tolerance, Functional Strength, Safety, Balance, Gait, Transfer, Bed Mobility, ROM Treatment/Plan Treatment Plan: Continue Plan of Care Treatment Plan: Bed Mobility, Education, Functional Activity Bill, Functional Strength, Group Therapy, Gait, Safety, Therapeutic Exercise, Transfers Treatment Duration: Jul 30, 2019 Frequency: At least 5 of 7 days/Wk (IRF) Estimated Hrs Per Day: 1.5 hours per day Patient and/or Family Agrees t: Yes Safety Risks/Education Patient Education: Gait Training, Transfer Techniques, Correct Positioning, Disease Process, Safety Issues Teaching Recipient: Patient Teaching Methods: Demonstration, Discussion, Audiovisual Response to Teaching: Verbalize Understanding, Return Demonstration, Reinforcement Needed Time/GCodes Time In: 914 Time Out: 1030 Total Billed Treatment Time: 75 Total Billed Treatment 1 visit GT 15' FA 15' EX 45' ALESHA MILIAN PT Jul 11, 2019 10:31
--- NOTE | 2019-07-11 11:20 | Speech Therapy Daily Note ---
Speech Daily Progress Note Subjective Date Seen by Provider: Jul 11, 2019 Time Seen by Provider: 00:30 Patient was pleasant and cooperative with therapy. Patient states he is really missing his . Objective Patient completed a series of memory and problem solving at 75% with minimal cues and/or repetitions. Assessment Assessment Current Status: Good Progress Treatment Plan Continue Plan of Care Speech Short Term Goals Short Term Goals Short Term Goals 1) The patient will complete memory tasks related to his daily needs at 80% or greater. 2) The patient will complete problem solving tasks related to his daily needs at 80% or greater. 3) The patient will complete safety awareness tasks related to his daily needs at 80% or greater. Speech Electrical Panel Builder Goals Electrical Panel Builder Goals Patient will improve cognitive-communication necessary for safety and daily living tasks with minimal assist. Speech-Plan Patient/Family Goals Patient/Family Goals: Patient plans on returning to his AL apartment with his upon hospital discharge. Treatment Plan Speech Therapy Treatment Plan: Continue Plan of Care Treatment Duration: Jul 09, 2019 Frequency: 5 times per week Estimated Hrs Per Day: .5 hour per day Rehab Potential: Fair Barriers to Learning: Patient has moderate dementia Pt/Family Agrees to Plan: Yes Safety Risks/Education Teaching Recipient: Patient Teaching Methods: Demonstration, Discussion Response to Teaching: Verbalize Understanding, Return Demonstration Education Topics Provided: Continued safety within his room Time Speech Therapy Time In: 10:30 Speech Therapy Time Out: 11:00 Total Billed Time: 30 Billed Treatment Time [address] Jul 11, 2019 11:20
--- OUTSIDE RECORDS SUMMARY | 2019-07-11 12:26 | XMS REPORT | Clinical Summary ---
Author Author [facility] Organization [facility] Address Unknown Phone Unavailable Care Team Providers Care Sports Team Marketing Intern Name Role Phone Rodger Kellogg MD Unavailable Unavailable Nay Martinez MD PCP Source Comments Some departments are not documenting in the electronic medical record. If you d o not see the information that you expected, contact Release of Information in [facility] [employer] Information Management department at [phone] for further assistan ce in locating additional records.[facility] Allergies No Known Allergies Medications End Date Status Medication Sig Dispensed Refills Start Date Active rivastigmine(+) (EXELON) Apply 1 Patch 0 9.5 mg/24 hour to top of transdermal patch skin as directed every [address]. [address](+) Take 20 mg by 0 (PRILOSEC) 20 mg capsule mouth daily. Active memantine (NAMENDA) 10 mg Take 10 mg by 0 tablet mouth twice daily. Active lisinopril (PRINIVIL; Take 20 mg by 0 ZESTRIL) 20 mg tablet mouth daily. Active metoprolol XL (TOPROL XL) Take 50 mg by 0 50 mg tablet mouth daily. Active rOPINIRole (REQUIP) 1 mg Take 1 mg by 0 tablet mouth at bedtime daily. Active ACETYL/METHYL-B12/LMEFOLA Take 1 Cap by 0 TE CA (CEREFOLIN NAC PO) mouth daily. Active HYDROcodone/acetaminophen Take 1-2 Tabs 30 Tab 0 (NORCO; VICODIN) 5-325 mg by mouth 3 tablet every 4 hours as needed for Pain. Active hyoscyamine (ANASPAZ; Place 1 Tab 30 Tab 0 01/0 4/[address]; SYMAX FASTABS; under tongue 3 HYOMAX-FT; ED-SPAZ; every 6 hours OSCIMIN) 0.125 mg rapid as needed. dissolve tablet Active senna/docusate Take 1 Tab by 0 (SENOKOT-S) 8.6/50 mg mouth twice 3 tablet daily. Take while taking pain medication Active HEPARIN SODIUM,PORCINE Inject 5,000 0 01 (HEPARIN (PORCINE)) 5,000 Units to 3 unit/0.5 mL Syrg area(s) as directed three times daily. Active Problems Problem Noted Date SDH (subdural hematoma) 04/29/2012 History of artificial heart valve 04/29/2012 Family History Medical History Relation Name Comments Heart Attack Brother Heart Attack Father Stroke Mother Relation Name Status Comments Brother Father Mother Social History Date Tobacco Use Types Packs/Day Years Used Never Smoker Smokeless Tobacco: Never Used Drinks/Week oz/Week Comments Alcohol Use No Sex Assigned at Date Recorded Not on file Industry Job Start Date Occupation Not on file Not on file Not on file Travel End Travel History Travel Start No recent travel history available. Last Filed Vital Signs Reading Time Taken Comments Vital Sign 141/86 05/04/2012 11:25 AM SAFETY TECH Blood Pressure 92 05/04/2012 11:25 AM SAFETY TECH Pulse 36.3 C (97.3 F) 05/04/2012 11:25 AM SAFETY TECH Temperature - - Respiratory Rate 100% 05/04/2012 11:25 AM SAFETY TECH Oxygen Saturation - - Inhaled Oxygen Concentration 64.4 kg (141 lb 15.6 oz) 05/02/2012 6:00 AM SAFETY TECH Weight 170.2 cm (5' 7.01") 05/03/2012 10:00 AM SAFETY TECH Height 22.23 05/02/2012 6:00 AM SAFETY TECH Body Mass Index Plan of Treatment Health Maintenance Due Date Last Done Comments DTAP/TDAP VACCINES (1 - 02/28/1946 Tdap) PHYSICAL (COMPREHENSIVE) 1951 EXAM SHINGLES RECOMBINANT 1983 VACCINE (1 of 2) PNEUMONIA (PCV13/PPSV23) 1998 VACCINES (1 of 2 - PCV13) INFLUENZA VACCINE 11/29/2018 Results Not on filefrom Last 3 Months Advance Directives Date Inactivated Comments Code Status Date Activated 05/04/2012 3:25 PM Full Code 04/26/2012 10:02 PM Provider has discussed Code Status Yes w/Patient or Family? 04/26/2012 10:02 PM Full Code 04/26/2012 7:10 PM Provider has discussed Code Status No, more discussi on w/Patient or Family? needed
--- OUTSIDE RECORDS SUMMARY | 2019-07-11 12:34 | XMS REPORT | CCD ---
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 Metabolic Kmm084 K 6.1 mEq/L 08/27/2018 Comp Metabolic Kvj764 CL 110 mEq/L 08/27/2018 Comp Metabolic Lyv099 CO2 22.0 mEq/L 08/27/2018 Comp Metabolic Rvx933 AN ION GAP 14 08/27/2018 Comp Metabolic Jgm386 GL UCOSE 77 mg/dL 08/27/2018 Comp Metabolic Ilx851 Cr eat 2.3 mg/dL 08/27/2018 Comp Metabolic Ahv047 eG FR 29 ml/min/1.73m2 08/27 Comp Metabolic Jge614 BUN 58 mg/dL 08/27/2018 Comp Metabolic Cap271 B/ C Ratio 25.0 Ratio 08/27/2018 Comp Metabolic Czu989 CA LCIUM 9.2 mg/dL 08/27/2018 Comp Metabolic Wer566 AL K PHOS 41 U/L 08/27/2018 Comp Metabolic Kuu292 T(SGOT) 62 U/L 08/27/2018 Comp Metabolic Pzi113 AL T(SGPT) 40 U/L 08/27/2018 Comp Metabolic Igt339 BI LI T 1.0 mg/dL 08/27/2018 Comp Metabolic Vjn959 AL BUMIN 4.0 g/dL 08/27/2018 Comp Metabolic Hzf179 TP RO 5.9 g/dL 08/27/2018 Comp Metabolic Syt439 GL OB 1.9 g/dL 08/27/2018 Comp Metabolic Asz209 A/ G Ratio 2.1 Ratio 08/27/2018 Comp Metabolic Jij030 Os mo 294 mOsmo 08/27/2018 Lipid Ord30 CHOL 101 mg/dL 08/27/2018 Lipid Ord30 HDL 56.0 mg/dl 08/27/2018 Lipid Ord30 TRIG 97 mg/dL 08/27/2018 Lipid Ord30 LDL 26 mg/dL 08/27/2018 Lipid Ord30 C/HDL 1.8 Ratio 08/27/2018 Pt Brl1660 PT 59.2 Result Verified By Repeat Analysis seconds 08/27/2018 Pt Yld3670 INR 6.8 Result Verified By Repeat Analysis 08/27/2018 Pt Bjo0940 Low Intensity - 1.5-2.0 08/27/2018 Pt Dlh0490 Mod intensity - 2.0-3.0 08/27/2018 Pt Pku5193 Hi intensity - 3.0-4.0 08/27/2018 Comp Metabolic Egj891 NA 143 mEq/L 08/08/2017 Comp Metabolic Vyw657 K 5.3 mEq/L 08/08/2017 Comp Metabolic Zdd998 CL 112 mEq/L 08/08/2017 Comp Metabolic Qbo391 CO2 27.0 mEq/L 08/08/2017 Comp Metabolic Kka587 AN ION GAP 9 08/08/2017 Comp Metabolic Iwm114 GL UCOSE 88 mg/dL 08/08/2017 Comp Metabolic Oae924 Cr eat 1.1 mg/dL 08/08/2017 Comp Metabolic Klk271 eG FR 71 ml/min/1.73m2 08/08 Comp Metabolic Qpq528 BUN 26 mg/dL 08/08/2017 Comp Metabolic Ioh266 B/ C Ratio 24.5 Ratio 08/08/2017 Comp Metabolic Tqw020 CA LCIUM 9.0 mg/dL 08/08/2017 Comp Metabolic Cky205 AL K PHOS 49 U/L 08/08/2017 Comp Metabolic Yai605 T(SGOT) 32 U/L 08/08/2017 Comp Metabolic Wvd978 AL T(SGPT) 25 U/L 08/08/2017 Comp Metabolic Htf613 BI LI T 0.7 mg/dL 08/08/2017 Comp Metabolic Fyb326 AL BUMIN 4.2 g/dL 08/08/2017 Comp Metabolic Rel880 TP RO 6.0 g/dL 08/08/2017 Comp Metabolic Het591 GL OB 1.9 g/dL 08/08/2017 Comp Metabolic Sgs019 A/ G Ratio 2.2 Ratio 08/08/2017 Comp Metabolic Djt147 Os mo 289 mOsmo 08/08/2017 Lipid Ord30 CHOL 110 mg/dL 08/08/2017 Lipid Ord30 HDL 57.0 mg/dl 08/08/2017 Lipid Ord30 TRIG 83 mg/dL 08/08/2017 Lipid Ord30 LDL 36 mg/dL 08/08/2017 Lipid Ord30 C/HDL 1.9 Ratio 08/08/2017 Comp Metabolic Bmp114 NA 141 mEq/L 01/28/2016 Comp Metabolic Slx088 K 4.5 mEq/L 01/28/2016 Comp Metabolic Bvp643 CL 111 mEq/L 01/28/2016 Comp Metabolic Ctp728 CO2 27.0 mEq/L 01/28/2016 Comp Metabolic Adb172 AN ION GAP 8 01/28/2016 Comp Metabolic Thk954 GL UCOSE 88 mg/dL 01/28/2016 Comp Metabolic Xvz316 Cr eat 1.1 mg/dL 01/28/2016 Comp Metabolic Vug511 eG FR 69 ml/min/1.73m2 01/27 Comp Metabolic Vrd947 BUN 23 mg/dL 01/28/2016 Comp Metabolic Htv759 B/ C Ratio 21.3 Ratio 01/28/2016 Comp Metabolic Kbd716 CA LCIUM 9.0 mg/dL 01/28/2016 Comp Metabolic Qtp344 AL K PHOS 48 U/L 01/28/2016 Comp Metabolic Gqv815 T(SGOT) 28 U/L 01/28/2016 Comp Metabolic Hwa182 AL T(SGPT) 20 U/L 01/28/2016 Comp Metabolic Hlt124 BI LI T 0.8 mg/dL 01/28/2016 Comp Metabolic Kgf929 AL BUMIN 4.0 g/dL 01/28/2016 Comp Metabolic Pls677 TP RO 6.0 g/dL 01/28/2016 Comp Metabolic Ymy468 GL OB 2.0 g/dL 01/28/2016 Comp Metabolic Ryr492 A/ G Ratio 2.0 Ratio 01/28/2016 Comp Metabolic Tps910 Os mo 284 mOsmo 01/28/2016 Lipid Ord30 CHOL 103 mg/dL 01/28/2016 Lipid Ord30 HDL 49.0 mg/dl 01/28/2016 Lipid Ord30 TRIG 76 mg/dL 01/28/2016 Lipid Ord30 LDL 39 mg/dL 01/28/2016 Lipid Ord30 C/HDL 2.1 Ratio 01/28/2016 Tsh Ord6 hTSH II 1.40 uIU/mL 01/28/2016 Cbc With Differential Ord2 WBC 5.58 K/ul 01/28/2016 Cbc With Differential Ord2 RBC 3.68 M/ul 01/28/2016 Cbc With Differential Ord2 HGB 12.7 g/dl 01/28/2016 Cbc With Differential Ord2 HCT 37.9 % 01/28/2016 Cbc With Differential Ord2 Neut% 67.5 % 01/28/2016 Cbc With Differential Ord2 MCV 103.0 fl 01/28/2016 Cbc With Differential Ord2 Lymph% 21.0 % 01/28/2016 Cbc With Differential Ord2 MCH 34.5 pg 01/28/2016 Cbc With Differential Ord2 [place]% 10.0 % 01/28/2016 Cbc With Differential Ord2 MCHC 33.5 pg 01/28/2016 Cbc With Differential Ord2 Eos% 1.1 % 01/28/2016 Cbc With Differential Ord2 PLT 187 K/ul 01/28/2016 Cbc With Differential Ord2 Baso% 0.4 % 01/28/2016 Cbc With Differential Ord2 RDW 13.5 % 01/28/2016 Cbc With Differential Ord2 Neut ABS# 3.77 K/ul 01/28/2016 Cbc With Differential Ord2 Lymph ABS# 1.17 K/ul 01/28/2016 Cbc With Differential Ord2 [place] ABS# 0.6 K/ul 01/28/2016 Cbc With Differential Ord2 Eos ABS# 0.1 K/ul 01/28/2016 Cbc With Differential Ord2 Baso ABS# 0.0 K/ul 01/28/2016 Total Psa Ord10 PSA 2.96 ng/mL 01/28/2016 Pt Dym5017 PT 25.8 seconds 08/07/2015 Pt Ihi7156 INR 2.5 08/07/2015 Pt Trv1542 Low Intensity - 1.5-2.0 08/07/2015 Pt Oga1444 Mod intensity - 2.0-3.0 08/07/2015 Pt Qtb2632 Hi intensity - 3.0-4.0 08/07/2015 Lipid Ord30 CHOL 102 mg/dL 08/07/2015 Lipid Ord30 HDL 50.0 mg/dl 08/07/2015 Lipid Ord30 TRIG 73 mg/dL 08/07/2015 Lipid Ord30 LDL 37 mg/dL 08/07/2015 Lipid Ord30 C/HDL 2.0 Ratio 08/07/2015 Hepatic Bbr102 ALBUMIN 4.0 g/dL 08/07/2015 Hepatic Bif290 TPRO 6.0 g/dL 08/07/2015 Hepatic Hmx672 GLOB 2.0 g/dL 08/07/2015 Hepatic Clk097 A/G Ratio 2.0 Ratio 08/07/2015 Hepatic Tcs014 ALK PHOS 47 U/L 08/07/2015 Hepatic Vcn451 ALT(SGPT) 20 U/L 08/07/2015 Hepatic Khi262 AST(SGOT) 26 U/L 08/07/2015 Hepatic Xbp197 BILI T 0.6 mg/dL 08/07/2015 Hepatic Dwx000 BILI D 0.2 mg/dL 08/07/2015 Hepatic Hld176 BILI I 0.4 mg/dL 08/07/2015 Pt Xop0287 PT 24.3 seconds 12/22/2014 Pt Mou2297 INR 2.3 12/22/2014 Pt Ikt4304 Low Intensity - 1.5-2.0 12/22/2014 Pt Uxb1755 Mod intensity - 2.0-3.0 12/22/2014 Pt Ufu1250 Hi intensity - 3.0-4.0 12/22/2014 URINALYSIS NONAUTO W/O SCOPE 19487 Specific [place] 1.030 DateTime(Free Text in ) URINALYSIS NONAUTO W/O SCOPE 04475 PH 6.5 DateTime(Free Ryan t in ) URINALYSIS NONAUTO W/O SCOPE 90117 GLUCOSE neg DateTime(Free Ryan t in ) URINALYSIS NONAUTO W/O SCOPE 31200 Protein trace DateTime(Free T ext in ) URINALYSIS NONAUTO W/O SCOPE 01191 Blood 3+ DateTime(Free Text in Julima) URINALYSIS NONAUTO W/O SCOPE 46773 Bilirubin neg DateTime(Free Ryan t in ) URINALYSIS NONAUTO W/O SCOPE 05678 Ketones neg DateTime(Free Ryan t in Aprima) URINALYSIS NONAUTO W/O SCOPE 70263 Urobilinogen neg DateTime(Free Text in Apr[employer]) URINALYSIS NONAUTO W/O SCOPE 91328 Nitrite neg DateTime(Free Ryan t in Apr) URINALYSIS NONAUTO W/O SCOPE 46846 Leukocytes neg DateTime(Free Text in Aprima) Review of Systems System Result Effective Dates Constitutional No recent illness 07/25/2018 Constitutional No fatigue 07/25/2018 Constitutional No fever 07/25/2018 Ears/Nose/Throat/Neck otalgia 07/25/2018 Ears/Nose/Throat/Neck otorrhea 07/25/2018 Cardiovascular No fatigue 07/25/2018 Respiratory No chest congestion 07/25/2018 Respiratory No cough Psychiatric No anxiety 0 07/25/2018 Constitutional No recent illness 07/05/2018 Constitutional No fatigue 07/05/2018 Constitutional No fever 07/05/2018 Ears/Nose/Throat/Neck otalgia 07/05/2018 Ears/Nose/Throat/Neck otorrhea 07/05/2018 Cardiovascular No fatigue 07/05/2018 Respiratory No chest congestion 07/05/2018 Respiratory No cough 10/2018 Psychiatric No anxiety 0 07/05/2018 Constitutional No recent illness 06/26/2018 Constitutional No fatigue 06/26/2018 Constitutional No fever 06/26/2018 Psychiatric No anxiety 0 06/26/2018 Respiratory No cough Respiratory No chest congestion 06/26/2018 Cardiovascular No fatigue 06/26/2018 Ears/Nose/Throat/Neck otorrhea 06/26/2018 Ears/Nose/Throat/Neck otalgia 06/26/2018 Constitutional No recent illness 03/27/2018 Constitutional No anorexia 03/27/2018 Constitutional No night sweats 03/27/2018 Constitutional No chills 03/27/2018 Constitutional No diaphoresis 03/27/2018 Constitutional fatigue 1 05/27/2017 Constitutional No fever 03/27/2018 Constitutional No insomnia 03/27/2018 Constitutional No malaise 03/27/2018 Constitutional weight loss 03/27/2018 Eyes No eye discharge Eyes No eye erythema Ears/Nose/Throat/Neck No dizziness 03/27/2018 Ears/Nose/Throat/Neck No headache 03/27/2018 Cardiovascular No chest pain/pressure 03/27/2018 Respiratory No cough Gastrointestinal No abdominal pain 03/27/2018 Gastrointestinal No constipation 03/27/2018 Gastrointestinal No diarrhea 03/27/2018 Genitourinary/Nephrology No dysuria 03/27/2018 Musculoskeletal stiffness 03/27/2018 Musculoskeletal joint complaint 03/27/2018 Dermatologic No rash Neurologic No alteration of consciousness 03/27/2018 Neurologic memory loss 1 05/27/2017 Psychiatric No anxiety 1 05/27/2017 Endocrine No dry or coarse skin 03/27/2018 Constitutional No recent illness 02/14/2018 Constitutional No night sweats 02/14/2018 Constitutional No chills 02/14/2018 Constitutional No diaphoresis 02/14/2018 Constitutional fatigue 1 Constitutional No fever 02/14/2018 Constitutional No insomnia 02/14/2018 Constitutional malaise 1 Constitutional weight loss 02/14/2018 Eyes No eye discharge Eyes No eye erythema Ears/Nose/Throat/Neck No dizziness 02/14/2018 Ears/Nose/Throat/Neck No headache 02/14/2018 Cardiovascular No chest pain/pressure 02/14/2018 Respiratory No cough Gastrointestinal abdominal pain 02/14/2018 Gastrointestinal constipation 02/14/2018 Gastrointestinal No diarrhea 02/14/2018 Musculoskeletal joint complaint 02/14/2018 Dermatologic No rash Neurologic No alteration of consciousness 02/14/2018 Neurologic memory loss 1 Psychiatric No anxiety 1 Endocrine No dry or coarse skin 02/14/2018 Constitutional No recent illness 11/08/2017 Constitutional No anorexia 11/08/2017 Constitutional No night sweats 11/08/2017 Constitutional No chills 11/08/2017 Constitutional No diaphoresis 11/08/2017 Constitutional fatigue 0 11/08/2017 Constitutional No fever 11/08/2017 Constitutional No insomnia 11/08/2017 Constitutional No malaise 11/08/2017 Constitutional weight loss 11/08/2017 Eyes No eye discharge Eyes No eye erythema 03/2018 Ears/Nose/Throat/Neck No dizziness 11/08/2017 Ears/Nose/Throat/Neck No headache 11/08/2017 Cardiovascular No chest pain/pressure 11/08/2017 Respiratory No cough 03/2018 Gastrointestinal No abdominal pain 11/08/2017 Gastrointestinal No constipation 11/08/2017 Gastrointestinal No diarrhea 11/08/2017 Genitourinary/Nephrology No dysuria 11/08/2017 Musculoskeletal joint complaint 11/08/2017 Dermatologic No rash 03/2018 Neurologic No alteration of consciousness 11/08/2017 Neurologic memory loss 0 11/08/2017 Psychiatric No anxiety 0 11/08/2017 Endocrine No dry or coarse skin 11/08/2017 Constitutional No recent illness 08/11/2017 Constitutional No chills 08/11/2017 Constitutional No fatigue 08/11/2017 Constitutional No fever 08/11/2017 Constitutional No insomnia 08/11/2017 Eyes No vision change Ears/Nose/Throat/Neck No dental pain 08/11/2017 Ears/Nose/Throat/Neck No dizziness 08/11/2017 Ears/Nose/Throat/Neck No dysphagia 08/11/2017 Ears/Nose/Throat/Neck No headache 08/11/2017 Ears/Nose/Throat/Neck No hearing loss 08/11/2017 Ears/Nose/Throat/Neck No nasal allergies 08/11/2017 Ears/Nose/Throat/Neck No postnasal drip 08/11/2017 Ears/Nose/Throat/Neck No sinus congestion 08/11/2017 Ears/Nose/Throat/Neck No sore throat 08/11/2017 Cardiovascular No chest pain/pressure 08/11/2017 Cardiovascular No dyspnea 08/11/2017 Cardiovascular No edema 08/11/2017 Cardiovascular fatigue 0 08/11/2017 Respiratory No chest congestion 08/11/2017 Respiratory No chest tightness 08/11/2017 Respiratory No cough Gastrointestinal No abdominal pain 08/11/2017 Gastrointestinal No constipation 08/11/2017 Gastrointestinal No diarrhea 08/11/2017 Gastrointestinal No nausea 08/11/2017 Gastrointestinal No vomiting 08/11/2017 Genitourinary/Nephrology No urinary urgenc y 08/11/2017 Musculoskeletal No back pain 08/11/2017 Dermatologic No rash Dermatologic No sores Neurologic No ataxia Neurologic No dizziness 08/11/2017 Neurologic No headache 0 08/11/2017 Neurologic memory loss 0 08/11/2017 Psychiatric No anxiety 0 08/11/2017 Psychiatric No depression 08/11/2017 Musculoskeletal joint complaint 08/11/2017 Constitutional No recent illness 08/09/2017 Constitutional No anorexia 08/09/2017 Constitutional No night sweats 08/09/2017 Constitutional No chills 08/09/2017 Constitutional No diaphoresis 08/09/2017 Constitutional fatigue 0 08/09/2017 Constitutional No fever 08/09/2017 Constitutional No insomnia 08/09/2017 Constitutional No malaise 08/09/2017 Constitutional weight loss 08/09/2017 Eyes No eye discharge Eyes No eye erythema 03/2018 Ears/Nose/Throat/Neck No dizziness 08/09/2017 Ears/Nose/Throat/Neck No headache 08/09/2017 Cardiovascular No chest pain/pressure 08/09/2017 Respiratory No cough 03/2018 Gastrointestinal No abdominal pain 08/09/2017 Gastrointestinal No constipation 08/09/2017 Gastrointestinal No diarrhea 08/09/2017 Genitourinary/Nephrology No dysuria 08/09/2017 Musculoskeletal stiffness 08/09/2017 Musculoskeletal joint complaint 08/09/2017 Dermatologic No rash 03/2018 Neurologic No alteration of consciousness 08/09/2017 Neurologic memory loss 0 08/09/2017 Psychiatric No anxiety 0 08/09/2017 Endocrine No dry or coarse skin 08/09/2017 Constitutional No recent illness 04/11/2017 Constitutional No diaphoresis 04/11/2017 Constitutional fatigue 1 06/12/2016 Constitutional No fever 04/11/2017 Constitutional No insomnia 04/11/2017 Constitutional No malaise 04/11/2017 Constitutional weight loss 04/11/2017 Eyes No eye discharge Eyes No eye erythema 03/2017 Ears/Nose/Throat/Neck No dizziness 04/11/2017 Ears/Nose/Throat/Neck No headache 04/11/2017 Cardiovascular No chest pain/pressure 04/11/2017 Respiratory No cough 03/2017 Gastrointestinal No abdominal pain 04/11/2017 Gastrointestinal No constipation 04/11/2017 Gastrointestinal No diarrhea 04/11/2017 Genitourinary/Nephrology No dysuria 04/11/2017 Musculoskeletal stiffness 04/11/2017 Musculoskeletal joint complaint 04/11/2017 Dermatologic sores 04/11 Neurologic No alteration of consciousness 04/11/2017 Neurologic memory loss 1 06/12/2016 Psychiatric No anxiety 1 06/12/2016 Constitutional No recent illness 01/25/2017 Constitutional No diaphoresis 01/25/2017 Constitutional fatigue 0 01/25/2017 Constitutional No fever 01/25/2017 Constitutional No insomnia 01/25/2017 Constitutional No malaise 01/25/2017 Constitutional weight loss 01/25/2017 Eyes No eye discharge Eyes No eye erythema Ears/Nose/Throat/Neck No dizziness 01/25/2017 Ears/Nose/Throat/Neck No headache 01/25/2017 Cardiovascular No chest pain/pressure 01/25/2017 Respiratory No cough Gastrointestinal No abdominal pain 01/25/2017 Gastrointestinal No constipation 01/25/2017 Gastrointestinal No diarrhea 01/25/2017 Genitourinary/Nephrology No dysuria 01/25/2017 Musculoskeletal stiffness 01/25/2017 Musculoskeletal joint complaint 01/25/2017 Neurologic No alteration of consciousness 01/25/2017 Neurologic memory loss 0 01/25/2017 Psychiatric No anxiety 0 01/25/2017 Dermatologic sores 01/25 Constitutional No recent illness 12/21/2016 Constitutional No chills 12/21/2016 Constitutional No diaphoresis 12/21/2016 Constitutional fatigue 0 12/21/2016 Constitutional No malaise 12/21/2016 Constitutional weight loss 12/21/2016 Eyes No eye discharge Eyes No eye erythema Ears/Nose/Throat/Neck No dizziness 12/21/2016 Ears/Nose/Throat/Neck No headache 12/21/2016 Cardiovascular No chest pain/pressure 12/21/2016 Respiratory No cough Gastrointestinal No abdominal pain 12/21/2016 Gastrointestinal No constipation 12/21/2016 Gastrointestinal No diarrhea 12/21/2016 Musculoskeletal stiffness 12/21/2016 Musculoskeletal joint complaint 12/21/2016 Neurologic No alteration of consciousness 12/21/2016 Neurologic memory loss 0 12/21/2016 Psychiatric No anxiety 0 12/21/2016 Ears/Nose/Throat/Neck hearing loss 12/21/2016 Ears/Nose/Throat/Neck otalgia 12/21/2016 Constitutional No recent illness 12/01/2016 Constitutional No anorexia 12/01/2016 Constitutional No night sweats 12/01/2016 Constitutional No chills 12/01/2016 Constitutional No diaphoresis 12/01/2016 Constitutional fatigue 0 12/01/2016 Constitutional No fever 12/01/2016 Constitutional No insomnia 12/01/2016 Constitutional No malaise 12/01/2016 Constitutional weight loss 12/01/2016 Eyes No eye discharge Eyes No eye erythema 06/2016 Ears/Nose/Throat/Neck No dizziness 12/01/2016 Ears/Nose/Throat/Neck No headache 12/01/2016 Cardiovascular No chest pain/pressure 12/01/2016 Respiratory No cough 06/2016 Gastrointestinal No abdominal pain 12/01/2016 Gastrointestinal No constipation 12/01/2016 Gastrointestinal No diarrhea 12/01/2016 Genitourinary/Nephrology No dysuria 12/01/2016 Musculoskeletal joint complaint 12/01/2016 Dermatologic No rash 06/2016 Neurologic No alteration of consciousness 12/01/2016 Neurologic memory loss 0 12/01/2016 Psychiatric No anxiety 0 12/01/2016 Endocrine No dry or coarse skin 12/01/2016 Musculoskeletal stiffness 12/01/2016 Constitutional No recent illness 10/25/2016 Constitutional No chills 10/25/2016 Constitutional No fatigue 10/25/2016 Constitutional No fever 10/25/2016 Constitutional No insomnia 10/25/2016 Eyes No vision change Ears/Nose/Throat/Neck No dental pain 10/25/2016 Ears/Nose/Throat/Neck No dizziness 10/25/2016 Ears/Nose/Throat/Neck No dysphagia 10/25/2016 Ears/Nose/Throat/Neck No headache 10/25/2016 Ears/Nose/Throat/Neck No hearing loss 10/25/2016 Ears/Nose/Throat/Neck No nasal allergies 10/25/2016 Ears/Nose/Throat/Neck No sore throat 10/25/2016 Ears/Nose/Throat/Neck No postnasal drip 10/25/2016 Ears/Nose/Throat/Neck No sinus congestion 10/25/2016 Cardiovascular No chest pain/pressure 10/25/2016 Cardiovascular No dyspnea 10/25/2016 Cardiovascular No edema 10/25/2016 Cardiovascular fatigue 0 10/25/2016 Respiratory No chest congestion 10/25/2016 Respiratory No chest tightness 10/25/2016 Respiratory No cough Gastrointestinal No abdominal pain 10/25/2016 Gastrointestinal No constipation 10/25/2016 Gastrointestinal No diarrhea 10/25/2016 Gastrointestinal No nausea 10/25/2016 Gastrointestinal No vomiting 10/25/2016 Genitourinary/Nephrology dysuria 10/25/2016 Genitourinary/Nephrology No urinary urgenc y 10/25/2016 Musculoskeletal No swelling 10/25/2016 Musculoskeletal No arthralgia(s) 10/25/2016 Musculoskeletal No back pain 10/25/2016 Dermatologic No rash Dermatologic No sores Neurologic No ataxia Neurologic No dizziness 10/25/2016 Neurologic No headache 0 10/25/2016 Neurologic memory loss 0 10/25/2016 Psychiatric No anxiety 0 10/25/2016 Psychiatric No depression 10/25/2016 Constitutional No recent illness 08/05/2016 Constitutional No chills 08/05/2016 Constitutional No fatigue 08/05/2016 Constitutional No fever 08/05/2016 Constitutional No insomnia 08/05/2016 Eyes No vision change Ears/Nose/Throat/Neck No dental pain 08/05/2016 Ears/Nose/Throat/Neck No dizziness 08/05/2016 Ears/Nose/Throat/Neck No dysphagia 08/05/2016 Ears/Nose/Throat/Neck No headache 08/05/2016 Ears/Nose/Throat/Neck No hearing loss 08/05/2016 Ears/Nose/Throat/Neck No nasal allergies 08/05/2016 Ears/Nose/Throat/Neck No sore throat 08/05/2016 Ears/Nose/Throat/Neck No postnasal drip 08/05/2016 Ears/Nose/Throat/Neck No sinus congestion 08/05/2016 Cardiovascular No chest pain/pressure 08/05/2016 Cardiovascular No dyspnea 08/05/2016 Cardiovascular No edema 08/05/2016 Cardiovascular fatigue 0 08/05/2016 Respiratory No chest congestion 08/05/2016 Respiratory No chest tightness 08/05/2016 Respiratory No cough 10/2016 Gastrointestinal No abdominal pain 08/05/2016 Gastrointestinal No constipation 08/05/2016 Gastrointestinal No diarrhea 08/05/2016 Gastrointestinal No nausea 08/05/2016 Gastrointestinal No vomiting 08/05/2016 Genitourinary/Nephrology dysuria 08/05/2016 Genitourinary/Nephrology No urinary urgenc y 08/05/2016 Musculoskeletal No swelling 08/05/2016 Musculoskeletal No arthralgia(s) 08/05/2016 Musculoskeletal No back pain 08/05/2016 Dermatologic No rash 10/2016 Dermatologic No sores Neurologic No ataxia 10/2016 Neurologic No dizziness 08/05/2016 Neurologic No headache 0 08/05/2016 Neurologic memory loss 0 08/05/2016 Psychiatric No anxiety 0 08/05/2016 Psychiatric No depression 08/05/2016 Constitutional No recent illness 07/26/2016 Constitutional No chills 07/26/2016 Constitutional No fatigue 07/26/2016 Constitutional No fever 07/26/2016 Constitutional No insomnia 07/26/2016 Eyes No vision change Ears/Nose/Throat/Neck No dental pain 07/26/2016 Ears/Nose/Throat/Neck No dizziness 07/26/2016 Ears/Nose/Throat/Neck No dysphagia 07/26/2016 Ears/Nose/Throat/Neck No headache 07/26/2016 Ears/Nose/Throat/Neck No hearing loss 07/26/2016 Ears/Nose/Throat/Neck No nasal allergies 07/26/2016 Ears/Nose/Throat/Neck No sore throat 07/26/2016 Ears/Nose/Throat/Neck No postnasal drip 07/26/2016 Ears/Nose/Throat/Neck No sinus congestion 07/26/2016 Cardiovascular No chest pain/pressure 07/26/2016 Cardiovascular No dyspnea 07/26/2016 Cardiovascular No edema 07/26/2016 Cardiovascular fatigue 0 07/26/2016 Respiratory No chest congestion 07/26/2016 Respiratory No chest tightness 07/26/2016 Respiratory No cough Gastrointestinal No abdominal pain 07/26/2016 Gastrointestinal No constipation 07/26/2016 Gastrointestinal No diarrhea 07/26/2016 Gastrointestinal No nausea 07/26/2016 Gastrointestinal No vomiting 07/26/2016 Genitourinary/Nephrology dysuria 07/26/2016 Genitourinary/Nephrology No urinary urgenc y 07/26/2016 Musculoskeletal No swelling 07/26/2016 Musculoskeletal No arthralgia(s) 07/26/2016 Musculoskeletal No back pain 07/26/2016 Dermatologic No rash Dermatologic No sores Neurologic No ataxia Neurologic No dizziness 07/26/2016 Neurologic No headache 0 07/26/2016 Neurologic memory loss 0 07/26/2016 Psychiatric No anxiety 0 07/26/2016 Psychiatric No depression 07/26/2016 Constitutional No recent illness 04/26/2016 Constitutional No anorexia 04/26/2016 Constitutional No night sweats 04/26/2016 Constitutional No chills 04/26/2016 Constitutional No diaphoresis 04/26/2016 Constitutional No fatigue 04/26/2016 Constitutional No fever 04/26/2016 Constitutional No insomnia 04/26/2016 Constitutional No malaise 04/26/2016 Constitutional No weight loss 04/26/2016 Constitutional No weight gain 04/26/2016 Eyes No eye discharge Eyes No eye erythema Ears/Nose/Throat/Neck No dizziness 04/26/2016 Ears/Nose/Throat/Neck No headache 04/26/2016 Cardiovascular No chest pain/pressure 04/26/2016 Respiratory No cough Gastrointestinal No abdominal pain 04/26/2016 Gastrointestinal No constipation 04/26/2016 Gastrointestinal No diarrhea 04/26/2016 Genitourinary/Nephrology No dysuria 04/26/2016 Musculoskeletal joint complaint 04/26/2016 Dermatologic No rash Neurologic No alteration of consciousness 04/26/2016 Neurologic memory loss 1 06/27/2015 Psychiatric No anxiety 1 06/27/2015 Endocrine No dry or coarse skin 04/26/2016 Constitutional No recent illness 01/27/2016 Constitutional No chills 01/27/2016 Constitutional No fatigue 01/27/2016 Constitutional No fever 01/27/2016 Constitutional No insomnia 01/27/2016 Eyes No vision change Ears/Nose/Throat/Neck No dental pain 01/27/2016 Ears/Nose/Throat/Neck No dizziness 01/27/2016 Ears/Nose/Throat/Neck No dysphagia 01/27/2016 Ears/Nose/Throat/Neck No headache 01/27/2016 Ears/Nose/Throat/Neck No hearing loss 01/27/2016 Ears/Nose/Throat/Neck No nasal allergies 01/27/2016 Ears/Nose/Throat/Neck No sore throat 01/27/2016 Ears/Nose/Throat/Neck No postnasal drip 01/27/2016 Ears/Nose/Throat/Neck No sinus congestion 01/27/2016 Cardiovascular No chest pain/pressure 01/27/2016 Cardiovascular No dyspnea 01/27/2016 Cardiovascular No edema 01/27/2016 Cardiovascular fatigue 0 01/27/2016 Respiratory No chest congestion 01/27/2016 Respiratory No chest tightness 01/27/2016 Respiratory No cough Gastrointestinal No abdominal pain 01/27/2016 Gastrointestinal No constipation 01/27/2016 Gastrointestinal No diarrhea 01/27/2016 Gastrointestinal No nausea 01/27/2016 Gastrointestinal No vomiting 01/27/2016 Genitourinary/Nephrology dysuria 01/27/2016 Genitourinary/Nephrology No urinary urgenc y 01/27/2016 Musculoskeletal No swelling 01/27/2016 Musculoskeletal No arthralgia(s) 01/27/2016 Musculoskeletal No back pain 01/27/2016 Dermatologic No rash Dermatologic No sores Neurologic No ataxia Neurologic No dizziness 01/27/2016 Neurologic No headache 0 01/27/2016 Neurologic memory loss 0 01/27/2016 Psychiatric No anxiety 0 01/27/2016 Psychiatric No depression 01/27/2016 Constitutional No recent illness 10/27/2015 Constitutional No chills 10/27/2015 Constitutional No fatigue 10/27/2015 Constitutional No fever 10/27/2015 Constitutional No insomnia 10/27/2015 Eyes No vision change Ears/Nose/Throat/Neck No dental pain 10/27/2015 Ears/Nose/Throat/Neck No dizziness 10/27/2015 Ears/Nose/Throat/Neck No dysphagia 10/27/2015 Ears/Nose/Throat/Neck No headache 10/27/2015 Ears/Nose/Throat/Neck No hearing loss 10/27/2015 Ears/Nose/Throat/Neck No nasal allergies 10/27/2015 Ears/Nose/Throat/Neck No sore throat 10/27/2015 Ears/Nose/Throat/Neck No postnasal drip 10/27/2015 Ears/Nose/Throat/Neck No sinus congestion 10/27/2015 Cardiovascular No chest pain/pressure 10/27/2015 Cardiovascular No dyspnea 10/27/2015 Cardiovascular No edema 10/27/2015 Cardiovascular fatigue 0 10/27/2015 Respiratory No chest congestion 10/27/2015 Respiratory No chest tightness 10/27/2015 Respiratory No cough Gastrointestinal No abdominal pain 10/27/2015 Gastrointestinal No constipation 10/27/2015 Gastrointestinal No diarrhea 10/27/2015 Gastrointestinal No nausea 10/27/2015 Gastrointestinal No vomiting 10/27/2015 Genitourinary/Nephrology dysuria 10/27/2015 Genitourinary/Nephrology No urinary urgenc y 10/27/2015 Musculoskeletal No swelling 10/27/2015 Musculoskeletal No arthralgia(s) 10/27/2015 Musculoskeletal No back pain 10/27/2015 Dermatologic No rash Dermatologic No sores Neurologic No ataxia Neurologic No dizziness 10/27/2015 Neurologic No headache 0 10/27/2015 Neurologic memory loss 0 10/27/2015 Psychiatric No anxiety 0 10/27/2015 Psychiatric No depression 10/27/2015 Constitutional No recent illness 06/30/2015 Constitutional No chills 06/30/2015 Constitutional No fatigue 06/30/2015 Constitutional No fever 06/30/2015 Constitutional No insomnia 06/30/2015 Eyes No vision change Cardiovascular No chest pain/pressure 06/30/2015 Cardiovascular No dyspnea 06/30/2015 Cardiovascular No edema 06/30/2015 Cardiovascular fatigue 0 06/30/2015 Respiratory No chest congestion 06/30/2015 Respiratory No chest tightness 06/30/2015 Respiratory No cough 05/2015 Gastrointestinal No abdominal pain 06/30/2015 Gastrointestinal No constipation 06/30/2015 Gastrointestinal No diarrhea 06/30/2015 Gastrointestinal No nausea 06/30/2015 Gastrointestinal No vomiting 06/30/2015 Genitourinary/Nephrology dysuria 06/30/2015 Genitourinary/Nephrology No urinary urgenc y 06/30/2015 Musculoskeletal No swelling 06/30/2015 Musculoskeletal No arthralgia(s) 06/30/2015 Musculoskeletal No back pain 06/30/2015 Dermatologic No rash 05/2015 Neurologic No ataxia 05/2015 Neurologic No dizziness 06/30/2015 Neurologic No headache 0 06/30/2015 Neurologic memory loss 0 06/30/2015 Psychiatric No anxiety 0 06/30/2015 Psychiatric No depression 06/30/2015 Ears/Nose/Throat/Neck No dental pain 06/30/2015 Ears/Nose/Throat/Neck No dizziness 06/30/2015 Ears/Nose/Throat/Neck No dysphagia 06/30/2015 Ears/Nose/Throat/Neck No headache 06/30/2015 Ears/Nose/Throat/Neck No hearing loss 06/30/2015 Ears/Nose/Throat/Neck No nasal allergies 06/30/2015 Ears/Nose/Throat/Neck No sore throat 06/30/2015 Ears/Nose/Throat/Neck No postnasal drip 06/30/2015 Ears/Nose/Throat/Neck No sinus congestion 06/30/2015 Dermatologic No sores Constitutional No recent illness 03/31/2015 Constitutional No chills 03/31/2015 Constitutional No fatigue 03/31/2015 Constitutional No fever 03/31/2015 Constitutional No insomnia 03/31/2015 Eyes No vision change Cardiovascular No chest pain/pressure 03/31/2015 Cardiovascular No dyspnea 03/31/2015 Cardiovascular No edema 03/31/2015 Cardiovascular fatigue 1 06/01/2014 Respiratory No chest congestion 03/31/2015 Respiratory No chest tightness 03/31/2015 Respiratory No cough 05/2014 Gastrointestinal No abdominal pain 03/31/2015 Gastrointestinal No constipation 03/31/2015 Gastrointestinal No diarrhea 03/31/2015 Gastrointestinal No nausea 03/31/2015 Gastrointestinal No vomiting 03/31/2015 Genitourinary/Nephrology dysuria 03/31/2015 Genitourinary/Nephrology No urinary urgenc y 03/31/2015 Musculoskeletal No swelling 03/31/2015 Musculoskeletal No arthralgia(s) 03/31/2015 Musculoskeletal No back pain 03/31/2015 Dermatologic No rash 05/2014 Dermatologic sores 03/31 Neurologic No ataxia 05/2014 Neurologic No dizziness 03/31/2015 Neurologic No headache 1 06/01/2014 Neurologic memory loss 1 06/01/2014 Psychiatric No anxiety 1 06/01/2014 Psychiatric No depression 03/31/2015 Constitutional No recent illness 03/17/2015 Constitutional No chills 03/17/2015 Constitutional No fatigue 03/17/2015 Constitutional No fever 03/17/2015 Constitutional No insomnia 03/17/2015 Eyes No vision change Cardiovascular No chest pain/pressure 03/17/2015 Cardiovascular No dyspnea 03/17/2015 Cardiovascular No edema 03/17/2015 Respiratory No chest congestion 03/17/2015 Respiratory No chest tightness 03/17/2015 Respiratory No cough Gastrointestinal No abdominal pain 03/17/2015 Gastrointestinal No constipation 03/17/2015 Gastrointestinal No diarrhea 03/17/2015 Gastrointestinal No nausea 03/17/2015 Gastrointestinal No vomiting 03/17/2015 Musculoskeletal back pain 03/17/2015 Neurologic No headache 1 05/17/2014 Psychiatric No anxiety 1 05/17/2014 Psychiatric No depression 03/17/2015 Ears/Nose/Throat/Neck No headache 03/17/2015 Dermatologic No rash Neurologic No dizziness 03/17/2015 Constitutional No recent illness 01/20/2015 Constitutional No chills 01/20/2015 Constitutional No fatigue 01/20/2015 Constitutional No fever 01/20/2015 Constitutional No insomnia 01/20/2015 Eyes No vision change Cardiovascular No chest pain/pressure 01/20/2015 Cardiovascular No dyspnea 01/20/2015 Cardiovascular No edema 01/20/2015 Cardiovascular fatigue 0 01/20/2015 Respiratory No chest congestion 01/20/2015 Respiratory No chest tightness 01/20/2015 Respiratory No cough Gastrointestinal No abdominal pain 01/20/2015 Gastrointestinal No constipation 01/20/2015 Gastrointestinal No diarrhea 01/20/2015 Gastrointestinal No nausea 01/20/2015 Gastrointestinal No vomiting 01/20/2015 Genitourinary/Nephrology dysuria 01/20/2015 Genitourinary/Nephrology No urinary urgenc y 01/20/2015 Musculoskeletal No swelling 01/20/2015 Musculoskeletal No arthralgia(s) 01/20/2015 Musculoskeletal No back pain 01/20/2015 Dermatologic No rash Dermatologic sores 01/20 Neurologic No ataxia Neurologic No dizziness 01/20/2015 Neurologic No headache 0 01/20/2015 Neurologic memory loss 0 01/20/2015 Psychiatric No anxiety 0 01/20/2015 Psychiatric No depression 01/20/2015 Constitutional No chills 12/15/2014 Constitutional No fatigue 12/15/2014 Constitutional No fever 12/15/2014 Eyes No vision change Ears/Nose/Throat/Neck No dental pain 12/15/2014 Ears/Nose/Throat/Neck No dizziness 12/15/2014 Ears/Nose/Throat/Neck No dysphagia 12/15/2014 Ears/Nose/Throat/Neck No headache 12/15/2014 Ears/Nose/Throat/Neck No hearing loss 12/15/2014 Ears/Nose/Throat/Neck No nasal allergies 12/15/2014 Ears/Nose/Throat/Neck No sore throat 12/15/2014 Ears/Nose/Throat/Neck No postnasal drip 12/15/2014 Ears/Nose/Throat/Neck No sinus congestion 12/15/2014 Cardiovascular No chest pain/pressure 12/15/2014 Cardiovascular No dyspnea 12/15/2014 Cardiovascular No edema 12/15/2014 Cardiovascular No exercise intolerance 12/15/2014 Cardiovascular No fatigue 12/15/2014 Cardiovascular hypertension 12/15/2014 Cardiovascular No near-syncope/dizziness 12/15/2014 Respiratory No chest congestion 12/15/2014 Respiratory No chest tightness 12/15/2014 Respiratory No cough Gastrointestinal No constipation 12/15/2014 Gastrointestinal No diarrhea 12/15/2014 Gastrointestinal No nausea 12/15/2014 Gastrointestinal No vomiting 12/15/2014 Genitourinary/Nephrology No urinary urgenc y 12/15/2014 Dermatologic No rash Dermatologic No sores Neurologic No ataxia Neurologic No dizziness 12/15/2014 Neurologic No headache 0 12/15/2014 Neurologic memory loss 0 12/15/2014 Psychiatric No anxiety 0 12/15/2014 Psychiatric No depression 12/15/2014 Musculoskeletal swelling 12/15/2014 Constitutional No chills 09/30/2014 Constitutional No fatigue 09/30/2014 Constitutional No fever 09/30/2014 Eyes No vision change Respiratory No chest congestion 09/30/2014 Respiratory No chest tightness 09/30/2014 Respiratory No cough 06/2014 Gastrointestinal No constipation 09/30/2014 Gastrointestinal No diarrhea 09/30/2014 Gastrointestinal No nausea 09/30/2014 Gastrointestinal No vomiting 09/30/2014 Genitourinary/Nephrology No urinary urgenc y 09/30/2014 Dermatologic No rash 06/2014 Dermatologic No sores Neurologic No ataxia 06/2014 Neurologic No dizziness 09/30/2014 Neurologic No headache 0 09/30/2014 Neurologic memory loss 0 09/30/2014 Psychiatric No anxiety 0 09/30/2014 Psychiatric No depression 09/30/2014 Musculoskeletal stiffness 09/30/2014 Musculoskeletal arthralgia(s) 09/30/2014 Musculoskeletal joint complaint 09/30/2014 Cardiovascular No chest pain/pressure 09/30/2014 Cardiovascular No dyspnea 09/30/2014 Cardiovascular No edema 09/30/2014 Cardiovascular No exercise intolerance 09/30/2014 Cardiovascular No fatigue 09/30/2014 Cardiovascular No near-syncope/dizziness 09/30/2014 Cardiovascular hypertension 09/30/2014 Ears/Nose/Throat/Neck No dental pain 09/30/2014 Ears/Nose/Throat/Neck No dizziness 09/30/2014 Ears/Nose/Throat/Neck No dysphagia 09/30/2014 Ears/Nose/Throat/Neck No headache 09/30/2014 Ears/Nose/Throat/Neck No hearing loss 09/30/2014 Ears/Nose/Throat/Neck No nasal allergies 09/30/2014 Ears/Nose/Throat/Neck No sore throat 09/30/2014 Ears/Nose/Throat/Neck No postnasal drip 09/30/2014 Ears/Nose/Throat/Neck No sinus congestion 09/30/2014 Constitutional No recent illness 07/01/2014 Cardiovascular No chest pain/pressure 07/01/2014 Cardiovascular No dyspnea 07/01/2014 Cardiovascular No edema 07/01/2014 Respiratory No chest congestion 07/01/2014 Respiratory No cough 06/2014 Gastrointestinal No abdominal pain 07/01/2014 Gastrointestinal No nausea 07/01/2014 Gastrointestinal No vomiting 07/01/2014 Gastrointestinal No constipation 07/01/2014 Gastrointestinal No diarrhea 07/01/2014 Genitourinary/Nephrology dysuria 07/01/2014 Constitutional No chills 07/01/2014 Constitutional No fatigue 07/01/2014 Constitutional No fever 07/01/2014 Constitutional No insomnia 07/01/2014 Eyes No vision change Cardiovascular fatigue 0 07/01/2014 Respiratory No chest tightness 07/01/2014 Genitourinary/Nephrology No urinary urgenc y 07/01/2014 Genitourinary/Nephrology urinary frequency 07/01/2014 Musculoskeletal No swelling 07/01/2014 Musculoskeletal No arthralgia(s) 07/01/2014 Musculoskeletal No back pain 07/01/2014 Dermatologic No rash 06/2014 Dermatologic No sores Neurologic No ataxia 06/2014 Neurologic No dizziness 07/01/2014 Neurologic No headache 0 07/01/2014 Neurologic memory loss 0 07/01/2014 Psychiatric No anxiety 0 07/01/2014 Psychiatric No depression 07/01/2014 Constitutional No chills 04/01/2014 Constitutional No fatigue 04/01/2014 Constitutional No fever 04/01/2014 Eyes No vision change Respiratory No chest congestion 04/01/2014 Respiratory No chest tightness 04/01/2014 Respiratory No cough 06/2013 Gastrointestinal No constipation 04/01/2014 Gastrointestinal No diarrhea 04/01/2014 Gastrointestinal No nausea 04/01/2014 Gastrointestinal No vomiting 04/01/2014 Genitourinary/Nephrology No urinary urgenc y 04/01/2014 Genitourinary/Nephrology urinary frequency 04/01/2014 Musculoskeletal No swelling 04/01/2014 Musculoskeletal No arthralgia(s) 04/01/2014 Musculoskeletal No back pain 04/01/2014 Dermatologic No rash 06/2013 Dermatologic No sores Neurologic No ataxia 06/2013 Neurologic No dizziness 04/01/2014 Neurologic No headache 1 06/02/2013 Neurologic memory loss 1 06/02/2013 Psychiatric No anxiety 1 06/02/2013 Psychiatric No depression 04/01/2014 Constitutional No insomnia 04/01/2014 Genitourinary/Nephrology dysuria 04/01/2014 Cardiovascular No chest pain/pressure 04/01/2014 Cardiovascular No edema 04/01/2014 Cardiovascular fatigue 1 06/02/2013 Constitutional No chills 01/13/2014 Constitutional No fatigue 01/13/2014 Constitutional No fever 01/13/2014 Eyes No vision change Respiratory No chest congestion 01/13/2014 Respiratory No chest tightness 01/13/2014 Respiratory No cough Gastrointestinal No constipation 01/13/2014 Gastrointestinal No diarrhea 01/13/2014 Gastrointestinal No nausea 01/13/2014 Gastrointestinal No vomiting 01/13/2014 Genitourinary/Nephrology No urinary urgenc y 01/13/2014 Genitourinary/Nephrology No urinary frequency 01/13/2014 Musculoskeletal No swelling 01/13/2014 Musculoskeletal No arthralgia(s) 01/13/2014 Musculoskeletal No back pain 01/13/2014 Dermatologic No rash Dermatologic No sores Neurologic No ataxia Neurologic No dizziness 01/13/2014 Neurologic No headache 0 01/13/2014 Neurologic memory loss 0 01/13/2014 Psychiatric No anxiety 0 01/13/2014 Psychiatric No depression 01/13/2014 Constitutional No chills 10/15/2013 Constitutional No fatigue 10/15/2013 Constitutional No fever 10/15/2013 Eyes No vision change Respiratory No chest congestion 10/15/2013 Respiratory No chest tightness 10/15/2013 Respiratory No cough Gastrointestinal No constipation 10/15/2013 Gastrointestinal No diarrhea 10/15/2013 Gastrointestinal No nausea 10/15/2013 Gastrointestinal No vomiting 10/15/2013 Genitourinary/Nephrology No urinary urgenc y 10/15/2013 Genitourinary/Nephrology No urinary frequency 10/15/2013 Musculoskeletal No swelling 10/15/2013 Musculoskeletal No arthralgia(s) 10/15/2013 Musculoskeletal No back pain 10/15/2013 Dermatologic No rash Dermatologic No sores Neurologic No ataxia Neurologic No dizziness 10/15/2013 Neurologic No headache 0 10/15/2013 Neurologic memory loss 0 10/15/2013 Psychiatric No anxiety 0 10/15/2013 Psychiatric No depression 10/15/2013 Constitutional No chills 09/11/2013 Constitutional No fatigue 09/11/2013 Constitutional No fever 09/11/2013 Eyes No vision change Respiratory No chest congestion 09/11/2013 Respiratory No chest tightness 09/11/2013 Respiratory No cough Gastrointestinal No constipation 09/11/2013 Gastrointestinal No diarrhea 09/11/2013 Gastrointestinal No nausea 09/11/2013 Gastrointestinal No vomiting 09/11/2013 Genitourinary/Nephrology No urinary urgenc y 09/11/2013 Genitourinary/Nephrology No urinary frequency 09/11/2013 Musculoskeletal No swelling 09/11/2013 Musculoskeletal No arthralgia(s) 09/11/2013 Musculoskeletal No back pain 09/11/2013 Dermatologic No rash Dermatologic No sores Neurologic No ataxia Neurologic No dizziness 09/11/2013 Neurologic No headache 0 09/11/2013 Neurologic memory loss 0 09/11/2013 Psychiatric No anxiety 0 09/11/2013 Psychiatric No depression 09/11/2013 Constitutional No recent illness 08/08/2013 Constitutional No anorexia 08/08/2013 Constitutional No night sweats 08/08/2013 Constitutional No chills 08/08/2013 Constitutional No diaphoresis 08/08/2013 Constitutional No fatigue 08/08/2013 Constitutional No fever 08/08/2013 Constitutional No malaise 08/08/2013 Constitutional No insomnia 08/08/2013 Constitutional No recent illness 07/29/2013 Constitutional No anorexia 07/29/2013 Constitutional No night sweats 07/29/2013 Constitutional No chills 07/29/2013 Constitutional No diaphoresis 07/29/2013 Constitutional No fatigue 07/29/2013 Constitutional No fever 07/29/2013 Constitutional No insomnia 07/29/2013 Constitutional No malaise 07/29/2013 Constitutional No weight loss 07/29/2013 Constitutional No weight gain 07/29/2013 Constitutional No chills 06/25/2013 Constitutional No fatigue 06/25/2013 Constitutional No fever 06/25/2013 Eyes No vision change Respiratory No chest congestion 06/25/2013 Respiratory No chest tightness 06/25/2013 Respiratory No cough Gastrointestinal No constipation 06/25/2013 Gastrointestinal No diarrhea 06/25/2013 Gastrointestinal No nausea 06/25/2013 Gastrointestinal No vomiting 06/25/2013 Genitourinary/Nephrology No urinary urgenc y 06/25/2013 Genitourinary/Nephrology No urinary frequency 06/25/2013 Musculoskeletal No swelling 06/25/2013 Musculoskeletal No arthralgia(s) 06/25/2013 Musculoskeletal No back pain 06/25/2013 Dermatologic No rash Dermatologic sores 06/25 Neurologic No ataxia Neurologic No dizziness 06/25/2013 Neurologic No headache 0 06/25/2013 Neurologic memory loss 0 06/25/2013 Psychiatric No anxiety 0 06/25/2013 Psychiatric No depression 06/25/2013 Constitutional No chills 03/26/2013 Constitutional No fatigue 03/26/2013 Constitutional No fever 03/26/2013 Eyes No vision change Respiratory No chest congestion 03/26/2013 Respiratory No chest tightness 03/26/2013 Respiratory No cough Gastrointestinal No constipation 03/26/2013 Gastrointestinal No diarrhea 03/26/2013 Gastrointestinal No nausea 03/26/2013 Gastrointestinal No vomiting 03/26/2013 Genitourinary/Nephrology No urinary urgenc y 03/26/2013 Genitourinary/Nephrology No urinary frequency 03/26/2013 Musculoskeletal No swelling 03/26/2013 Musculoskeletal No arthralgia(s) 03/26/2013 Musculoskeletal No back pain 03/26/2013 Dermatologic No rash Dermatologic sores 03/26 Neurologic No ataxia Neurologic No dizziness 03/26/2013 Neurologic No headache 1 05/26/2012 Neurologic memory loss 1 05/26/2012 Psychiatric No anxiety 1 05/26/2012 Psychiatric No depression 03/26/2013 Constitutional No recent illness 12/25/2012 Constitutional No anorexia 12/25/2012 Constitutional No night sweats 12/25/2012 Constitutional No chills 12/25/2012 Constitutional No diaphoresis 12/25/2012 Constitutional No fatigue 12/25/2012 Constitutional No fever 12/25/2012 Constitutional No malaise 12/25/2012 Constitutional No insomnia 12/25/2012 Constitutional No chills 11/20/2012 Constitutional No fatigue 11/20/2012 Constitutional No fever 11/20/2012 Eyes No vision change Respiratory No chest congestion 11/20/2012 Respiratory No chest tightness 11/20/2012 Respiratory No cough Gastrointestinal No constipation 11/20/2012 Gastrointestinal No diarrhea 11/20/2012 Gastrointestinal No nausea 11/20/2012 Gastrointestinal No vomiting 11/20/2012 Genitourinary/Nephrology No urinary urgenc y 11/20/2012 Genitourinary/Nephrology No urinary frequency 11/20/2012 Musculoskeletal No swelling 11/20/2012 Musculoskeletal No arthralgia(s) 11/20/2012 Musculoskeletal No back pain 11/20/2012 Dermatologic No rash Dermatologic No sores Neurologic No ataxia Neurologic No dizziness 11/20/2012 Neurologic No headache 0 11/20/2012 Neurologic memory loss 0 11/20/2012 Psychiatric No anxiety 0 11/20/2012 Psychiatric No depression 11/20/2012 Constitutional No chills 08/21/2012 Constitutional No fatigue 08/21/2012 Constitutional No fever 08/21/2012 Eyes No vision change Respiratory No chest congestion 08/21/2012 Respiratory No chest tightness 08/21/2012 Respiratory No cough Gastrointestinal No constipation 08/21/2012 Gastrointestinal No diarrhea 08/21/2012 Gastrointestinal No nausea 08/21/2012 Gastrointestinal No vomiting 08/21/2012 Genitourinary/Nephrology No urinary urgenc y 08/21/2012 Genitourinary/Nephrology No urinary frequency 08/21/2012 Musculoskeletal No swelling 08/21/2012 Musculoskeletal No arthralgia(s) 08/21/2012 Musculoskeletal No back pain 08/21/2012 Dermatologic No rash Dermatologic No sores Neurologic No ataxia Neurologic No dizziness 08/21/2012 Neurologic No headache 0 08/21/2012 Neurologic memory loss 0 08/21/2012 Psychiatric No anxiety 0 08/21/2012 Psychiatric No depression 08/21/2012 Constitutional No recent illness 06/28/2012 Constitutional No anorexia 06/28/2012 Constitutional No night sweats 06/28/2012 Constitutional No chills 06/28/2012 Constitutional No diaphoresis 06/28/2012 Constitutional No fatigue 06/28/2012 Constitutional No malaise 06/28/2012 Constitutional No insomnia 06/28/2012 Constitutional No fever 06/28/2012 Neurologic No alteration of consciousness 06/28/2012 Neurologic No aphasia Neurologic No ataxia Neurologic No dizziness 06/28/2012 Neurologic gait abnormality 06/28/2012 Neurologic No mental status change 06/28/2012 Constitutional No chills 05/21/2012 Constitutional No fatigue 05/21/2012 Constitutional No fever 05/21/2012 Eyes No vision change Respiratory No chest congestion 05/21/2012 Respiratory No chest tightness 05/21/2012 Respiratory No cough Gastrointestinal No constipation 05/21/2012 Gastrointestinal No diarrhea 05/21/2012 Gastrointestinal No nausea 05/21/2012 Gastrointestinal No vomiting 05/21/2012 Genitourinary/Nephrology No urinary urgenc y 05/21/2012 Genitourinary/Nephrology No urinary frequency 05/21/2012 Musculoskeletal No swelling 05/21/2012 Musculoskeletal No arthralgia(s) 05/21/2012 Musculoskeletal No back pain 05/21/2012 Dermatologic No rash Dermatologic No sores Neurologic No ataxia Neurologic No dizziness 05/21/2012 Neurologic No headache 0 05/21/2012 Neurologic memory loss 0 05/21/2012 Psychiatric No anxiety 0 05/21/2012 Psychiatric No depression 05/21/2012 Constitutional No recent illness 04/26/2012 Constitutional No anorexia 04/26/2012 Constitutional No night sweats 04/26/2012 Constitutional No chills 04/26/2012 Constitutional No diaphoresis 04/26/2012 Constitutional No fatigue 04/26/2012 Constitutional No fever 04/26/2012 Constitutional No insomnia 04/26/2012 Eyes No eye discharge Eyes No eye erythema Eyes No vision change Ears/Nose/Throat/Neck No dizziness 04/26/2012 Ears/Nose/Throat/Neck No headache 04/26/2012 Ears/Nose/Throat/Neck No nasal discharge 04/26/2012 Cardiovascular No chest pain/pressure 04/26/2012 Cardiovascular No dyspnea 04/26/2012 Cardiovascular No edema 04/26/2012 Respiratory No chest congestion 04/26/2012 Respiratory No cough Respiratory No dyspnea 1 06/27/2011 Gastrointestinal No abdominal pain 04/26/2012 Gastrointestinal No constipation 04/26/2012 Gastrointestinal No diarrhea 04/26/2012 Gastrointestinal No nausea 04/26/2012 Gastrointestinal No vomiting 04/26/2012 Genitourinary/Nephrology No dysuria 04/26/2012 Musculoskeletal joint complaint 04/26/2012 Musculoskeletal neck pain 04/26/2012 Dermatologic No rash Psychiatric No depression 04/26/2012 Psychiatric No anxiety 1 06/27/2011 Constitutional No chills 02/14/2012 Constitutional No fatigue 02/14/2012 Constitutional No fever 02/14/2012 Eyes No vision change Respiratory No chest congestion 02/14/2012 Respiratory No chest tightness 02/14/2012 Respiratory No cough Gastrointestinal No constipation 02/14/2012 Gastrointestinal No diarrhea 02/14/2012 Gastrointestinal No nausea 02/14/2012 Gastrointestinal No vomiting 02/14/2012 Genitourinary/Nephrology No urinary urgenc y 02/14/2012 Genitourinary/Nephrology No urinary frequency 02/14/2012 Musculoskeletal No swelling 02/14/2012 Musculoskeletal No arthralgia(s) 02/14/2012 Musculoskeletal No back pain 02/14/2012 Dermatologic No rash Dermatologic No sores Neurologic No ataxia Neurologic No dizziness 02/14/2012 Neurologic No headache 1 Neurologic memory loss 1 Psychiatric No anxiety 1 Psychiatric No depression 02/14/2012 Constitutional No chills 10/11/2011 Constitutional No fatigue 10/11/2011 Constitutional No fever 10/11/2011 Eyes No vision change Respiratory No chest congestion 10/11/2011 Respiratory No chest tightness 10/11/2011 Respiratory No cough 03/2012 Gastrointestinal No constipation 10/11/2011 Gastrointestinal No diarrhea 10/11/2011 Gastrointestinal No nausea 10/11/2011 Gastrointestinal No vomiting 10/11/2011 Genitourinary/Nephrology No urinary urgenc y 10/11/2011 Genitourinary/Nephrology No urinary frequency 10/11/2011 Musculoskeletal No swelling 10/11/2011 Musculoskeletal No arthralgia(s) 10/11/2011 Musculoskeletal No back pain 10/11/2011 Dermatologic No rash 03/2012 Dermatologic No sores Neurologic No ataxia 03/2012 Neurologic No dizziness 10/11/2011 Neurologic No headache 0 10/11/2011 Neurologic memory loss 0 10/11/2011 Psychiatric No anxiety 0 10/11/2011 Psychiatric No depression 10/11/2011 Constitutional No chills 07/12/2011 Constitutional weight loss 07/12/2011 Eyes No vision change Ears/Nose/Throat/Neck No dizziness 07/12/2011 Ears/Nose/Throat/Neck No headache 07/12/2011 Gastrointestinal No diarrhea 07/12/2011 Gastrointestinal No constipation 07/12/2011 Gastrointestinal nausea 07/12/2011 Gastrointestinal vomiting 07/12/2011 Constitutional No fever 07/12/2011 Cardiovascular No chest pain/pressure 07/12/2011 Constitutional No fatigue 07/12/2011 Cardiovascular No dyspnea 07/12/2011 Respiratory No chest congestion 07/12/2011 Respiratory No chest tightness 07/12/2011 Respiratory No cough Dermatologic No rash Dermatologic No sores Psychiatric No anxiety 0 07/12/2011 Psychiatric No depression 07/12/2011 Psychiatric disturbances of memory 07/12/2011 Constitutional No fatigue 05/11/2011 Constitutional No fever 05/11/2011 Cardiovascular No chest pain/pressure 05/11/2011 Cardiovascular No dyspnea 05/11/2011 Respiratory No cough 03/2012 Respiratory No chest congestion 05/11/2011 Respiratory No chest tightness 05/11/2011 Dermatologic No rash 03/2012 Dermatologic No sores Constitutional No chills 04/12/2011 Constitutional No fatigue 04/12/2011 Constitutional No fever 04/12/2011 Eyes No vision change Cardiovascular No chest pain/pressure 04/12/2011 Cardiovascular No palpitations 04/12/2011 Respiratory No chest congestion 04/12/2011 Respiratory No chest tightness 04/12/2011 Respiratory No cough Gastrointestinal No constipation 04/12/2011 Gastrointestinal No diarrhea 04/12/2011 Gastrointestinal No nausea 04/12/2011 Gastrointestinal No vomiting 04/12/2011 Genitourinary/Nephrology No urinary urgenc y 04/12/2011 Genitourinary/Nephrology No urinary frequency 04/12/2011 Musculoskeletal No swelling 04/12/2011 Musculoskeletal No arthralgia(s) 04/12/2011 Musculoskeletal No back pain 04/12/2011 Dermatologic No rash Dermatologic No sores Psychiatric No anxiety 1 06/13/2010 Psychiatric No depression 04/12/2011 Constitutional No chills 01/11/2011 Constitutional No fatigue 01/11/2011 Constitutional No fever 01/11/2011 Eyes No vision change Cardiovascular No chest pain/pressure 01/11/2011 Cardiovascular No palpitations 01/11/2011 Gastrointestinal No constipation 01/11/2011 Gastrointestinal No diarrhea 01/11/2011 Gastrointestinal No nausea 01/11/2011 Gastrointestinal No vomiting 01/11/2011 Genitourinary/Nephrology No urinary urgenc y 01/11/2011 Genitourinary/Nephrology No urinary frequency 01/11/2011 Musculoskeletal No swelling 01/11/2011 Musculoskeletal No arthralgia(s) 01/11/2011 Musculoskeletal No back pain 01/11/2011 Dermatologic No rash Dermatologic No sores Neurologic memory loss 0 01/11/2011 Neurologic No headache 0 01/11/2011 Neurologic No dizziness 01/11/2011 Neurologic No ataxia Psychiatric No anxiety 0 01/11/2011 Psychiatric No depression 01/11/2011 Respiratory No chest congestion 01/11/2011 Respiratory No chest tightness 01/11/2011 Respiratory No cough Physical Exam Exam Name System Name It em Name Status Result Effective Dates Notes Full Exam - General 1994 Constitutional general appearance Overall: well developed 07/25/2018 None Full Exam - General 1994 Constitutional general appearance Overall: in no acute distress 07/25/2018 None Full Exam - General 1994 Constitutional general appearance Overall: well nourished 07/25/2018 None Full Exam - General 1994 Ears/Nose/Throat otoscopic exam External auditory canal: debris 07/25/2018 bloody discharge left ear - dried blood Full Exam - General 1994 Respiratory auscultation Overall: breath sounds clear bilaterally 07/25/2018 None Full Exam - General 1994 Respiratory respiratory effort/rhythm Overall: no retractions 07/25/2018 None Full Exam - General 1994 Respiratory respiratory effort/rhythm Overall: normal rate 07/25/2018 None Full Exam - General 1994 Cardiovascular auscultation of heart Overall: regular rate 07/25/2018 None Full Exam - General 1994 Cardiovascular auscultation of heart Systolic murmur: mechanical 07/25/2018 None Full Exam - General 1994 Psychiatric orientation/consciousness Overall: oriented to person, place and time 07/25/2018 None Full Exam - General 1994 Psychiatric mood and affect Overall: normal mood and affect 07/25/2018 None Full Exam - General 1994 Psychiatric appearance Overall: well-groomed, good eye contact 07/25/2018 None Full Exam - General 1994 Constitutional general appearance Overall: well developed 07/05/2018 None Full Exam - General 1994 Constitutional general appearance Overall: in no acute distress 07/05/2018 None Full Exam - General 1994 Constitutional general appearance Overall: well nourished 07/05/2018 None Full Exam - General 1994 Respiratory auscultation Overall: breath sounds clear bilaterally 07/05/2018 None Full Exam - General 1994 Respiratory respiratory effort/rhythm Overall: no retractions 07/05/2018 None Full Exam - General 1994 Respiratory respiratory effort/rhythm Overall: normal rate 07/05/2018 None Full Exam - General 1994 Cardiovascular auscultation of heart Overall: regular rate 07/05/2018 None Full Exam - General 1994 Cardiovascular auscultation of heart Systolic murmur: mechanical 07/05/2018 None Full Exam - General 1994 Psychiatric orientation/consciousness Overall: oriented to person, place and time 07/05/2018 None Full Exam - General 1994 Psychiatric mood and affect Overall: normal mood and affect 07/05/2018 None Full Exam - General 1994 Psychiatric appearance Overall: well-groomed, good eye contact 07/05/2018 None Full Exam - General 1994 Ears/Nose/Throat otoscopic exam External auditory canal: debris 07/05/2018 bloody discharge left ear - dried blood Full Exam - General 1994 Constitutional general appearance Overall: well nourished 06/26/2018 None Full Exam - General 1994 Constitutional general appearance Overall: well developed 06/26/2018 None Full Exam - General 1994 Constitutional general appearance Overall: in no acute distress 06/26/2018 None Full Exam - General 1994 Psychiatric orientation/consciousness Overall: oriented to person, place and time 06/26/2018 None Full Exam - General 1994 Psychiatric appearance Overall: well-groomed, good eye contact 06/26/2018 None Full Exam - General 1994 Respiratory auscultation Overall: breath sounds clear bilaterally 06/26/2018 None Full Exam - General 1994 Respiratory respiratory effort/rhythm Overall: no retractions 06/26/2018 None Full Exam - General 1994 Respiratory respiratory effort/rhythm Overall: normal rate 06/26/2018 None Full Exam - General 1994 Cardiovascular auscultation of heart Systolic murmur: mechanical 06/26/2018 None Full Exam - General 1994 Cardiovascular auscultation of heart Overall: regular rate 06/26/2018 None Full Exam - General 1994 Psychiatric mood and affect Overall: normal mood and affect 06/26/2018 None Full Exam - General 1994 Constitutional general appearance Overall: well developed 03/27/2018 None Full Exam - General 1994 Constitutional general appearance Overall: in no acute distress 03/27/2018 None Full Exam - General 1994 Constitutional general appearance Overall: well nourished 03/27/2018 None Full Exam - General 1994 Eyes pupils and irises Overall: pupils equal, round, reactive to light and accomodation 03/27/2018 None Full Exam - General 1994 Ears/Nose/Throat otoscopic exam External auditory canal: debris 03/27/2018 blood clotted in the ear canal - dark shards of blood Full Exam - General 1994 Ears/Nose/Throat lips/teeth/gingiva Overall: benign lips 03/27/2018 None Full Exam - General 1994 Ears/Nose/Throat lips/teeth/gingiva Overall: no masses 03/27/2018 None Full Exam - General 1994 Ears/Nose/Throat oral cavity/pharynx/larynx Overall: oral mucosa clear 03/27/2018 None Full Exam - General 1994 Ears/Nose/Throat oral cavity/pharynx/larynx Overall: oropharyngeal mucosa clear 03/27/2018 None Full Exam - General 1994 Respiratory auscultation Overall: breath sounds clear bilaterally 03/27/2018 None Full Exam - General 1994 Respiratory respiratory effort/rhythm Overall: no retractions 03/27/2018 None Full Exam - General 1994 Respiratory respiratory effort/rhythm Overall: normal rate 03/27/2018 None Full Exam - General 1994 Cardiovascular auscultation of heart Overall: regular rate 03/27/2018 None Full Exam - General 1994 Cardiovascular auscultation of heart Systolic murmur: mechanical 03/27/2018 None Full Exam - General 1994 Abdomen abdominal exam Overall: no tenderness 03/27/2018 None Full Exam - General 1994 Abdomen abdominal exam Overall: normal bowel sounds 03/27/2018 None Full Exam - General 1994 Musculoskeletal lower extremity Inspection - knee: presence of a scar 03/27/2018 None Full Exam - General 1994 Musculoskeletal lower extremity Palpation - knee: no effusion 03/27/2018 None Full Exam - General 1994 Musculoskeletal head and neck Overall: head atraumatic 03/27/2018 None Full Exam - General 1994 Musculoskeletal head and neck Overall: TMJ benign 03/27/2018 None Full Exam - General 1994 Musculoskeletal head and neck Overall: cervical spine benign 03/27/2018 None Full Exam - General 1994 Neurologic gait Overall: no ataxia, no unsteadiness 03/27/2018 None Full Exam - General 1994 Neurologic cranial nerves Overall: crainial nerves 2 - 12 grossly intact 03/27/2018 None Full Exam - General 1994 Psychiatric orientation/consciousness Overall: oriented to person, place and time 03/27/2018 None Full Exam - General 1994 Psychiatric mood and affect Overall: normal mood and affect 03/27/2018 None Full Exam - General 1994 Constitutional general appearance Overall: well developed 02/14/2018 None Full Exam - General 1994 Constitutional general appearance Overall: in no acute distress 02/14/2018 None Full Exam - General 1994 Constitutional general appearance Overall: well nourished 02/14/2018 None Full Exam - General 1994 Eyes pupils and irises Overall: pupils equal, round, reactive to light and accomodation 02/14/2018 None Full Exam - General 1994 Ears/Nose/Throat otoscopic exam External auditory canal: debris 02/14/2018 blood clotted in the ear canal - dark shards of blood Full Exam - General 1994 Ears/Nose/Throat lips/teeth/gingiva Overall: benign lips 02/14/2018 None Full Exam - General 1994 Ears/Nose/Throat lips/teeth/gingiva Overall: no masses 02/14/2018 None Full Exam - General 1994 Ears/Nose/Throat oral cavity/pharynx/larynx Overall: oral mucosa clear 02/14/2018 None Full Exam - General 1994 Ears/Nose/Throat oral cavity/pharynx/larynx Overall: oropharyngeal mucosa clear 02/14/2018 None Full Exam - General 1994 Respiratory auscultation Overall: breath sounds clear bilaterally 02/14/2018 None Full Exam - General 1994 Respiratory respiratory effort/rhythm Overall: no retractions 02/14/2018 None Full Exam - General 1994 Respiratory respiratory effort/rhythm Overall: normal rate 02/14/2018 None Full Exam - General 1994 Cardiovascular auscultation of heart Overall: regular rate 02/14/2018 None Full Exam - General 1994 Cardiovascular auscultation of heart Systolic murmur: mechanical 02/14/2018 None Full Exam - General 1994 Abdomen abdominal exam Overall: no tenderness 02/14/2018 None Full Exam - General 1994 Abdomen abdominal exam Overall: normal bowel sounds 02/14/2018 None Full Exam - General 1994 Musculoskeletal lower extremity Inspection - knee: presence of a scar 02/14/2018 None Full Exam - General 1994 Musculoskeletal lower extremity Palpation - knee: no effusion 02/14/2018 None Full Exam - General 1994 Musculoskeletal head and neck Overall: head atraumatic 02/14/2018 None Full Exam - General 1994 Musculoskeletal head and neck Overall: TMJ benign 02/14/2018 None Full Exam - General 1994 Musculoskeletal head and neck Overall: cervical spine benign 02/14/2018 None Full Exam - General 1994 Integument inspection of skin Dermatitis: thickened 02/14/2018 on right nasal bridge - l arge horny keratosis of left lower leg Full Exam - General 1994 Neurologic gait Overall: no ataxia, no unsteadiness 02/14/2018 None Full Exam - General 1994 Neurologic cranial nerves Overall: crainial nerves 2 - 12 grossly intact 02/14/2018 None Full Exam - General 1994 Psychiatric orientation/consciousness Overall: oriented to person, place and time 02/14/2018 None Full Exam - General 1994 Psychiatric mood and affect Overall: normal mood and affect 02/14/2018 None Full Exam - General 1994 Constitutional general appearance Overall: well developed 11/08/2017 None Full Exam - General 1994 Constitutional general appearance Overall: in no acute distress 11/08/2017 None Full Exam - General 1994 Constitutional general appearance Overall: well nourished 11/08/2017 None Full Exam - General 1994 Eyes pupils and irises Overall: pupils equal, round, reactive to light and accomodation 11/08/2017 None Full Exam - General 1994 Ears/Nose/Throat otoscopic exam External auditory canal: debris 11/08/2017 blood clotted in the ear canal - dark shards of blood Full Exam - General 1994 Ears/Nose/Throat lips/teeth/gingiva Overall: benign lips 11/08/2017 None Full Exam - General 1994 Ears/Nose/Throat lips/teeth/gingiva Overall: no masses 11/08/2017 None Full Exam - General 1994 Ears/Nose/Throat oral cavity/pharynx/larynx Overall: oral mucosa clear 11/08/2017 None Full Exam - General 1994 Ears/Nose/Throat oral cavity/pharynx/larynx Overall: oropharyngeal mucosa clear 11/08/2017 None Full Exam - General 1994 Respiratory auscultation Overall: breath sounds clear bilaterally 11/08/2017 None Full Exam - General 1994 Respiratory respiratory effort/rhythm Overall: no retractions 11/08/2017 None Full Exam - General 1994 Respiratory respiratory effort/rhythm Overall: normal rate 11/08/2017 None Full Exam - General 1994 Cardiovascular auscultation of heart Overall: regular rate 11/08/2017 None Full Exam - General 1994 Cardiovascular auscultation of heart Systolic murmur: mechanical 11/08/2017 None Full Exam - General 1994 Abdomen abdominal exam Overall: no tenderness 11/08/2017 None Full Exam - General 1994 Abdomen abdominal exam Overall: normal bowel sounds 11/08/2017 None Full Exam - General 1994 Musculoskeletal lower extremity Inspection - knee: presence of a scar 11/08/2017 None Full Exam - General 1994 Musculoskeletal lower extremity Palpation - knee: no effusion 11/08/2017 None Full Exam - General 1994 Musculoskeletal head and neck Overall: head atraumatic 11/08/2017 None Full Exam - General 1994 Musculoskeletal head and neck Overall: TMJ benign 11/08/2017 None Full Exam - General 1994 Musculoskeletal head and neck Overall: cervical spine benign 11/08/2017 None Full Exam - General 1994 Neurologic gait Overall: no ataxia, no unsteadiness 11/08/2017 None Full Exam - General 1994 Neurologic cranial nerves Overall: crainial nerves 2 - 12 grossly intact 11/08/2017 None Full Exam - General 1994 Psychiatric orientation/consciousness Overall: oriented to person, place and time 11/08/2017 None Full Exam - General 1994 Psychiatric mood and affect Overall: normal mood and affect 11/08/2017 None Full Exam - General 1994 Integument inspection of skin Dermatitis: thickened 11/08/2017 on right nasal bridge - l arge horny keratosis of left lower leg Full Exam - General 1994 Constitutional general appearance Overall: well developed 08/11/2017 None Full Exam - General 1994 Constitutional general appearance Overall: in no acute distress 08/11/2017 None Full Exam - General 1994 Constitutional general appearance Overall: well nourished 08/11/2017 None Full Exam - General 1994 Eyes pupils and irises Overall: pupils equal, round, reactive to light and accomodation 08/11/2017 None Full Exam - General 1994 Ears/Nose/Throat otoscopic exam Overall: external auditory canals clear 08/11/2017 None Full Exam - General 1994 Ears/Nose/Throat otoscopic exam Overall: tympanic membranes clear 08/11/2017 None Full Exam - General 1994 Ears/Nose/Throat lips/teeth/gingiva Overall: benign lips 08/11/2017 None Full Exam - General 1994 Ears/Nose/Throat lips/teeth/gingiva Overall: no masses 08/11/2017 None Full Exam - General 1994 Ears/Nose/Throat oral cavity/pharynx/larynx Overall: oral mucosa clear 08/11/2017 None Full Exam - General 1994 Ears/Nose/Throat oral cavity/pharynx/larynx Overall: oropharyngeal mucosa clear 08/11/2017 None Full Exam - General 1994 Respiratory auscultation Overall: breath sounds clear bilaterally 08/11/2017 None Full Exam - General 1994 Respiratory respiratory effort/rhythm Overall: no retractions 08/11/2017 None Full Exam - General 1994 Respiratory respiratory effort/rhythm Overall: normal rate 08/11/2017 None Full Exam - General 1994 Cardiovascular auscultation of heart Overall: regular rate 08/11/2017 None Full Exam - General 1994 Cardiovascular auscultation of heart Systolic murmur: mechanical 08/11/2017 None Full Exam - General 1994 Abdomen abdominal exam Overall: no tenderness 08/11/2017 None Full Exam - General 1994 Abdomen abdominal exam Overall: normal bowel sounds 08/11/2017 None Full Exam - General 1994 Musculoskeletal lower extremity Inspection - knee: presence of a scar 08/11/2017 None Full Exam - General 1994 Musculoskeletal lower extremity Palpation - knee: no effusion 08/11/2017 None Full Exam - General 1994 Musculoskeletal head and neck Overall: head atraumatic 08/11/2017 None Full Exam - General 1994 Musculoskeletal head and neck Overall: TMJ benign 08/11/2017 None Full Exam - General 1994 Musculoskeletal head and neck Overall: cervical spine benign 08/11/2017 None Full Exam - General 1994 Neurologic gait Overall: no ataxia, no unsteadiness 08/11/2017 None Full Exam - General 1994 Neurologic cranial nerves Overall: crainial nerves 2 - 12 grossly intact 08/11/2017 None Full Exam - General 1994 Psychiatric orientation/consciousness Overall: oriented to person, place and time 08/11/2017 None Full Exam - General 1994 Psychiatric mood and affect Overall: normal mood and affect 08/11/2017 None Full Exam - General 1994 Musculoskeletal lower extremity Inspection - knee: swelling 08/11/2017 None Full Exam - General 1994 Constitutional general appearance Overall: well developed 08/09/2017 None Full Exam - General 1994 Constitutional general appearance Overall: in no acute distress 08/09/2017 None Full Exam - General 1994 Constitutional general appearance Overall: well nourished 08/09/2017 None Full Exam - General 1994 Eyes pupils and irises Overall: pupils equal, round, reactive to light and accomodation 08/09/2017 None Full Exam - General 1994 Ears/Nose/Throat otoscopic exam External auditory canal: debris 08/09/2017 blood clotted in the ear canal - dark shards of blood Full Exam - General 1994 Ears/Nose/Throat lips/teeth/gingiva Overall: benign lips 08/09/2017 None Full Exam - General 1994 Ears/Nose/Throat lips/teeth/gingiva Overall: no masses 08/09/2017 None Full Exam - General 1994 Ears/Nose/Throat oral cavity/pharynx/larynx Overall: oral mucosa clear 08/09/2017 None Full Exam - General 1994 Ears/Nose/Throat oral cavity/pharynx/larynx Overall: oropharyngeal mucosa clear 08/09/2017 None Full Exam - General 1994 Respiratory auscultation Overall: breath sounds clear bilaterally 08/09/2017 None Full Exam - General 1994 Respiratory respiratory effort/rhythm Overall: no retractions 08/09/2017 None Full Exam - General 1994 Respiratory respiratory effort/rhythm Overall: normal rate 08/09/2017 None Full Exam - General 1994 Cardiovascular auscultation of heart Overall: regular rate 08/09/2017 None Full Exam - General 1994 Cardiovascular auscultation of heart Systolic murmur: mechanical 08/09/2017 None Full Exam - General 1994 Abdomen abdominal exam Overall: no tenderness 08/09/2017 None Full Exam - General 1994 Abdomen abdominal exam Overall: normal bowel sounds 08/09/2017 None Full Exam - General 1994 Musculoskeletal lower extremity Inspection - knee: presence of a scar 08/09/2017 None Full Exam - General 1994 Musculoskeletal lower extremity Palpation - knee: no effusion 08/09/2017 None Full Exam - General 1994 Musculoskeletal head and neck Overall: head atraumatic 08/09/2017 None Full Exam - General 1994 Musculoskeletal head and neck Overall: TMJ benign 08/09/2017 None Full Exam - General 1994 Musculoskeletal head and neck Overall: cervical spine benign 08/09/2017 None Full Exam - General 1994 Neurologic gait Overall: no ataxia, no unsteadiness 08/09/2017 None Full Exam - General 1994 Neurologic cranial nerves Overall: crainial nerves 2 - 12 grossly intact 08/09/2017 None Full Exam - General 1994 Psychiatric orientation/consciousness Overall: oriented to person, place and time 08/09/2017 None Full Exam - General 1994 Psychiatric mood and affect Overall: normal mood and affect 08/09/2017 None Full Exam - General 1994 Constitutional general appearance Overall: well developed 04/11/2017 None Full Exam - General 1994 Constitutional general appearance Overall: in no acute distress 04/11/2017 None Full Exam - General 1994 Constitutional general appearance Overall: well nourished 04/11/2017 None Full Exam - General 1994 Eyes pupils and irises Overall: pupils equal, round, reactive to light and accomodation 04/11/2017 None Full Exam - General 1994 Ears/Nose/Throat otoscopic exam External auditory canal: debris 04/11/2017 blood clotted in the ear canal - dark shards of blood Full Exam - General 1994 Ears/Nose/Throat lips/teeth/gingiva Overall: benign lips 04/11/2017 None Full Exam - General 1994 Ears/Nose/Throat lips/teeth/gingiva Overall: no masses 04/11/2017 None Full Exam - General 1994 Ears/Nose/Throat oral cavity/pharynx/larynx Overall: oral mucosa clear 04/11/2017 None Full Exam - General 1994 Ears/Nose/Throat oral cavity/pharynx/larynx Overall: oropharyngeal mucosa clear 04/11/2017 None Full Exam - General 1994 Respiratory auscultation Overall: breath sounds clear bilaterally 04/11/2017 None Full Exam - General 1994 Respiratory respiratory effort/rhythm Overall: no retractions 04/11/2017 None Full Exam - General 1994 Respiratory respiratory effort/rhythm Overall: normal rate 04/11/2017 None Full Exam - General 1994 Cardiovascular auscultation of heart Overall: regular rate 04/11/2017 None Full Exam - General 1994 Cardiovascular auscultation of heart Systolic murmur: mechanical 04/11/2017 None Full Exam - General 1994 Abdomen abdominal exam Overall: no tenderness 04/11/2017 None Full Exam - General 1994 Abdomen abdominal exam Overall: normal bowel sounds 04/11/2017 None Full Exam - General 1994 Musculoskeletal lower extremity Inspection - knee: presence of a scar 04/11/2017 None Full Exam - General 1994 Musculoskeletal lower extremity Palpation - knee: no effusion 04/11/2017 None Full Exam - General 1994 Musculoskeletal head and neck Overall: head atraumatic 04/11/2017 None Full Exam - General 1994 Musculoskeletal head and neck Overall: TMJ benign 04/11/2017 None Full Exam - General 1994 Musculoskeletal head and neck Overall: cervical spine benign 04/11/2017 None Full Exam - General 1994 Neurologic gait Overall: no ataxia, no unsteadiness 04/11/2017 None Full Exam - General 1994 Neurologic cranial nerves Overall: crainial nerves 2 - 12 grossly intact 04/11/2017 None Full Exam - General 1994 Psychiatric orientation/consciousness Overall: oriented to person, place and time 04/11/2017 None Full Exam - General 1994 Psychiatric mood and affect Overall: normal mood and affect 04/11/2017 None Full Exam - General 1994 Constitutional general appearance Overall: well developed 01/25/2017 None Full Exam - General 1994 Constitutional general appearance Overall: in no acute distress 01/25/2017 None Full Exam - General 1994 Constitutional general appearance Overall: well nourished 01/25/2017 None Full Exam - General 1994 Eyes pupils and irises Overall: pupils equal, round, reactive to light and accomodation 01/25/2017 None Full Exam - General 1994 Ears/Nose/Throat otoscopic exam External auditory canal: debris 01/25/2017 blood clotted in the ear canal - dark shards of blood Full Exam - General 1994 Ears/Nose/Throat lips/teeth/gingiva Overall: benign lips 01/25/2017 None Full Exam - General 1994 Ears/Nose/Throat lips/teeth/gingiva Overall: no masses 01/25/2017 None Full Exam - General 1994 Ears/Nose/Throat oral cavity/pharynx/larynx Overall: oral mucosa clear 01/25/2017 None Full Exam - General 1994 Ears/Nose/Throat oral cavity/pharynx/larynx Overall: oropharyngeal mucosa clear 01/25/2017 None Full Exam - General 1994 Respiratory auscultation Overall: breath sounds clear bilaterally 01/25/2017 None Full Exam - General 1994 Respiratory respiratory effort/rhythm Overall: no retractions 01/25/2017 None Full Exam - General 1994 Respiratory respiratory effort/rhythm Overall: normal rate 01/25/2017 None Full Exam - General 1994 Cardiovascular auscultation of heart Overall: regular rate 01/25/2017 None Full Exam - General 1994 Cardiovascular auscultation of heart Systolic murmur: mechanical 01/25/2017 None Full Exam - General 1994 Abdomen abdominal exam Overall: no tenderness 01/25/2017 None Full Exam - General 1994 Abdomen abdominal exam Overall: normal bowel sounds 01/25/2017 None Full Exam - General 1994 Musculoskeletal lower extremity Inspection - knee: presence of a scar 01/25/2017 None Full Exam - General 1994 Musculoskeletal lower extremity Palpation - knee: no effusion 01/25/2017 None Full Exam - General 1994 Musculoskeletal head and neck Overall: head atraumatic 01/25/2017 None Full Exam - General 1994 Musculoskeletal head and neck Overall: TMJ benign 01/25/2017 None Full Exam - General 1994 Musculoskeletal head and neck Overall: cervical spine benign 01/25/2017 None Full Exam - General 1994 Neurologic gait Overall: no ataxia, no unsteadiness 01/25/2017 None Full Exam - General 1994 Neurologic cranial nerves Overall: crainial nerves 2 - 12 grossly intact 01/25/2017 None Full Exam - General 1994 Psychiatric orientation/consciousness Overall: oriented to person, place and time 01/25/2017 None Full Exam - General 1994 Psychiatric mood and affect Overall: normal mood and affect 01/25/2017 None Full Exam - General 1994 Constitutional general appearance Overall: well developed 12/21/2016 None Full Exam - General 1994 Constitutional general appearance Overall: in no acute distress 12/21/2016 None Full Exam - General 1994 Constitutional general appearance Overall: well nourished 12/21/2016 None Full Exam - General 1994 Eyes pupils and irises Overall: pupils equal, round, reactive to light and accomodation 12/21/2016 None Full Exam - General 1994 Ears/Nose/Throat lips/teeth/gingiva Overall: benign lips 12/21/2016 None Full Exam - General 1994 Ears/Nose/Throat lips/teeth/gingiva Overall: no masses 12/21/2016 None Full Exam - General 1994 Ears/Nose/Throat oral cavity/pharynx/larynx Overall: oral mucosa clear 12/21/2016 None Full Exam - General 1994 Ears/Nose/Throat oral cavity/pharynx/larynx Overall: oropharyngeal mucosa clear 12/21/2016 None Full Exam - General 1994 Respiratory auscultation Overall: breath sounds clear bilaterally 12/21/2016 None Full Exam - General 1994 Respiratory respiratory effort/rhythm Overall: no retractions 12/21/2016 None Full Exam - General 1994 Respiratory respiratory effort/rhythm Overall: normal rate 12/21/2016 None Full Exam - General 1994 Cardiovascular auscultation of heart Overall: regular rate 12/21/2016 None Full Exam - General 1994 Cardiovascular auscultation of heart Systolic murmur: mechanical 12/21/2016 None Full Exam - General 1994 Abdomen abdominal exam Overall: no tenderness 12/21/2016 None Full Exam - General 1994 Abdomen abdominal exam Overall: normal bowel sounds 12/21/2016 None Full Exam - General 1994 Musculoskeletal lower extremity Inspection - knee: presence of a scar 12/21/2016 None Full Exam - General 1994 Musculoskeletal lower extremity Palpation - knee: no effusion 12/21/2016 None Full Exam - General 1994 Musculoskeletal head and neck Overall: head atraumatic 12/21/2016 None Full Exam - General 1994 Musculoskeletal head and neck Overall: TMJ benign 12/21/2016 None Full Exam - General 1994 Musculoskeletal head and neck Overall: cervical spine benign 12/21/2016 None Full Exam - General 1994 Neurologic gait Overall: no ataxia, no unsteadiness 12/21/2016 None Full Exam - General 1994 Neurologic cranial nerves Overall: crainial nerves 2 - 12 grossly intact 12/21/2016 None Full Exam - General 1994 Psychiatric orientation/consciousness Overall: oriented to person, place and time 12/21/2016 None Full Exam - General 1994 Psychiatric mood and affect Overall: normal mood and affect 12/21/2016 None Full Exam - General 1994 Ears/Nose/Throat otoscopic exam External auditory canal: debris 12/21/2016 bloody debris - removed with curette and alligator forceps Full Exam - General 1994 Constitutional general appearance Overall: well developed 12/01/2016 None Full Exam - General 1994 Constitutional general appearance Overall: in no acute distress 12/01/2016 None Full Exam - General 1994 Constitutional general appearance Overall: well nourished 12/01/2016 None Full Exam - General 1994 Eyes pupils and irises Overall: pupils equal, round, reactive to light and accomodation 12/01/2016 None Full Exam - General 1994 Ears/Nose/Throat lips/teeth/gingiva Overall: benign lips 12/01/2016 None Full Exam - General 1994 Ears/Nose/Throat lips/teeth/gingiva Overall: no masses 12/01/2016 None Full Exam - General 1994 Ears/Nose/Throat oral cavity/pharynx/larynx Overall: oral mucosa clear 12/01/2016 None Full Exam - General 1994 Ears/Nose/Throat oral cavity/pharynx/larynx Overall: oropharyngeal mucosa clear 12/01/2016 None Full Exam - General 1994 Respiratory auscultation Overall: breath sounds clear bilaterally 12/01/2016 None Full Exam - General 1994 Respiratory respiratory effort/rhythm Overall: no retractions 12/01/2016 None Full Exam - General 1994 Respiratory respiratory effort/rhythm Overall: normal rate 12/01/2016 None Full Exam - General 1994 Cardiovascular auscultation of heart Overall: regular rate 12/01/2016 None Full Exam - General 1994 Cardiovascular auscultation of heart Systolic murmur: mechanical 12/01/2016 None Full Exam - General 1994 Abdomen abdominal exam Overall: no tenderness 12/01/2016 None Full Exam - General 1994 Abdomen abdominal exam Overall: normal bowel sounds 12/01/2016 None Full Exam - General 1994 Musculoskeletal lower extremity Inspection - knee: presence of a scar 12/01/2016 None Full Exam - General 1994 Musculoskeletal lower extremity Palpation - knee: no effusion 12/01/2016 None Full Exam - General 1994 Musculoskeletal head and neck Overall: head atraumatic 12/01/2016 None Full Exam - General 1994 Musculoskeletal head and neck Overall: TMJ benign 12/01/2016 None Full Exam - General 1994 Musculoskeletal head and neck Overall: cervical spine benign 12/01/2016 None Full Exam - General 1994 Neurologic gait Overall: no ataxia, no unsteadiness 12/01/2016 None Full Exam - General 1994 Neurologic cranial nerves Overall: crainial nerves 2 - 12 grossly intact 12/01/2016 None Full Exam - General 1994 Psychiatric orientation/consciousness Overall: oriented to person, place and time 12/01/2016 None Full Exam - General 1994 Psychiatric mood and affect Overall: normal mood and affect 12/01/2016 None Full Exam - General 1994 Ears/Nose/Throat otoscopic exam External auditory canal: debris 12/01/2016 blood clotted in the ear canal - dark shards of blood Full Exam - General 1994 Constitutional general appearance Overall: well developed 10/25/2016 None Full Exam - General 1994 Constitutional general appearance Overall: in no acute distress 10/25/2016 None Full Exam - General 1994 Constitutional general appearance Overall: well nourished 10/25/2016 None Full Exam - General 1994 Eyes pupils and irises Overall: pupils equal, round, reactive to light and accomodation 10/25/2016 None Full Exam - General 1994 Ears/Nose/Throat otoscopic exam Overall: external auditory canals clear 10/25/2016 None Full Exam - General 1994 Ears/Nose/Throat otoscopic exam Overall: tympanic membranes clear 10/25/2016 None Full Exam - General 1994 Ears/Nose/Throat lips/teeth/gingiva Overall: benign lips 10/25/2016 None Full Exam - General 1994 Ears/Nose/Throat lips/teeth/gingiva Overall: no masses 10/25/2016 None Full Exam - General 1994 Ears/Nose/Throat oral cavity/pharynx/larynx Overall: oral mucosa clear 10/25/2016 None Full Exam - General 1994 Ears/Nose/Throat oral cavity/pharynx/larynx Overall: oropharyngeal mucosa clear 10/25/2016 None Full Exam - General 1994 Respiratory auscultation Overall: breath sounds clear bilaterally 10/25/2016 None Full Exam - General 1994 Respiratory respiratory effort/rhythm Overall: no retractions 10/25/2016 None Full Exam - General 1994 Respiratory respiratory effort/rhythm Overall: normal rate 10/25/2016 None Full Exam - General 1994 Cardiovascular auscultation of heart Overall: regular rate 10/25/2016 None Full Exam - General 1994 Cardiovascular auscultation of heart Systolic murmur: mechanical 10/25/2016 None Full Exam - General 1994 Abdomen abdominal exam Overall: no tenderness 10/25/2016 None Full Exam - General 1994 Abdomen abdominal exam Overall: normal bowel sounds 10/25/2016 None Full Exam - General 1994 Musculoskeletal lower extremity Inspection - knee: presence of a scar 10/25/2016 None Full Exam - General 1994 Musculoskeletal lower extremity Palpation - knee: no effusion 10/25/2016 None Full Exam - General 1994 Musculoskeletal head and neck Overall: head atraumatic 10/25/2016 None Full Exam - General 1994 Musculoskeletal head and neck Overall: TMJ benign 10/25/2016 None Full Exam - General 1994 Musculoskeletal head and neck Overall: cervical spine benign 10/25/2016 None Full Exam - General 1994 Integument inspection of skin Location: face 10/25/2016 left cheeck with nodular lesion wtih central depression/scab, tender to touch Full Exam - General 1994 Neurologic gait Overall: no ataxia, no unsteadiness 10/25/2016 None Full Exam - General 1994 Neurologic cranial nerves Overall: crainial nerves 2 - 12 grossly intact 10/25/2016 None Full Exam - General 1994 Psychiatric orientation/consciousness Overall: oriented to person, place and time 10/25/2016 None Full Exam - General 1994 Psychiatric mood and affect Overall: normal mood and affect 10/25/2016 None Full Exam - General 1994 Constitutional general appearance Overall: well developed 08/05/2016 None Full Exam - General 1994 Constitutional general appearance Overall: in no acute distress 08/05/2016 None Full Exam - General 1994 Constitutional general appearance Overall: well nourished 08/05/2016 None Full Exam - General 1994 Eyes pupils and irises Overall: pupils equal, round, reactive to light and accomodation 08/05/2016 None Full Exam - General 1994 Ears/Nose/Throat otoscopic exam Overall: external auditory canals clear 08/05/2016 None Full Exam - General 1994 Ears/Nose/Throat otoscopic exam Overall: tympanic membranes clear 08/05/2016 None Full Exam - General 1994 Ears/Nose/Throat lips/teeth/gingiva Overall: benign lips 08/05/2016 None Full Exam - General 1994 Ears/Nose/Throat lips/teeth/gingiva Overall: no masses 08/05/2016 None Full Exam - General 1994 Ears/Nose/Throat oral cavity/pharynx/larynx Overall: oral mucosa clear 08/05/2016 None Full Exam - General 1994 Ears/Nose/Throat oral cavity/pharynx/larynx Overall: oropharyngeal mucosa clear 08/05/2016 None Full Exam - General 1994 Respiratory auscultation Overall: breath sounds clear bilaterally 08/05/2016 None Full Exam - General 1994 Respiratory respiratory effort/rhythm Overall: no retractions 08/05/2016 None Full Exam - General 1994 Respiratory respiratory effort/rhythm Overall: normal rate 08/05/2016 None Full Exam - General 1994 Cardiovascular auscultation of heart Overall: regular rate 08/05/2016 None Full Exam - General 1994 Cardiovascular auscultation of heart Systolic murmur: mechanical 08/05/2016 None Full Exam - General 1994 Abdomen abdominal exam Overall: no tenderness 08/05/2016 None Full Exam - General 1994 Abdomen abdominal exam Overall: normal bowel sounds 08/05/2016 None Full Exam - General 1994 Musculoskeletal lower extremity Inspection - knee: presence of a scar 08/05/2016 None Full Exam - General 1994 Musculoskeletal lower extremity Palpation - knee: no effusion 08/05/2016 None Full Exam - General 1994 Musculoskeletal head and neck Overall: head atraumatic 08/05/2016 None Full Exam - General 1994 Musculoskeletal head and neck Overall: TMJ benign 08/05/2016 None Full Exam - General 1994 Musculoskeletal head and neck Overall: cervical spine benign 08/05/2016 None Full Exam - General 1994 Neurologic gait Overall: no ataxia, no unsteadiness 08/05/2016 None Full Exam - General 1994 Neurologic cranial nerves Overall: crainial nerves 2 - 12 grossly intact 08/05/2016 None Full Exam - General 1994 Psychiatric orientation/consciousness Overall: oriented to person, place and time 08/05/2016 None Full Exam - General 1994 Psychiatric mood and affect Overall: normal mood and affect 08/05/2016 None Full Exam - General 1994 Constitutional general appearance Overall: well developed 07/26/2016 None Full Exam - General 1994 Constitutional general appearance Overall: in no acute distress 07/26/2016 None Full Exam - General 1994 Constitutional general appearance Overall: well nourished 07/26/2016 None Full Exam - General 1994 Eyes pupils and irises Overall: pupils equal, round, reactive to light and accomodation 07/26/2016 None Full Exam - General 1994 Ears/Nose/Throat otoscopic exam Overall: external auditory canals clear 07/26/2016 None Full Exam - General 1994 Ears/Nose/Throat otoscopic exam Overall: tympanic membranes clear 07/26/2016 None Full Exam - General 1994 Ears/Nose/Throat lips/teeth/gingiva Overall: benign lips 07/26/2016 None Full Exam - General 1994 Ears/Nose/Throat lips/teeth/gingiva Overall: no masses 07/26/2016 None Full Exam - General 1994 Ears/Nose/Throat oral cavity/pharynx/larynx Overall: oral mucosa clear 07/26/2016 None Full Exam - General 1994 Ears/Nose/Throat oral cavity/pharynx/larynx Overall: oropharyngeal mucosa clear 07/26/2016 None Full Exam - General 1994 Respiratory auscultation Overall: breath sounds clear bilaterally 07/26/2016 None Full Exam - General 1994 Respiratory respiratory effort/rhythm Overall: no retractions 07/26/2016 None Full Exam - General 1994 Respiratory respiratory effort/rhythm Overall: normal rate 07/26/2016 None Full Exam - General 1994 Cardiovascular auscultation of heart Overall: regular rate 07/26/2016 None Full Exam - General 1994 Cardiovascular auscultation of heart Systolic murmur: mechanical 07/26/2016 None Full Exam - General 1994 Abdomen abdominal exam Overall: no tenderness 07/26/2016 None Full Exam - General 1994 Abdomen abdominal exam Overall: normal bowel sounds 07/26/2016 None Full Exam - General 1994 Musculoskeletal lower extremity Inspection - knee: presence of a scar 07/26/2016 None Full Exam - General 1994 Musculoskeletal lower extremity Palpation - knee: no effusion 07/26/2016 None Full Exam - General 1994 Musculoskeletal head and neck Overall: head atraumatic 07/26/2016 None Full Exam - General 1994 Musculoskeletal head and neck Overall: TMJ benign 07/26/2016 None Full Exam - General 1994 Musculoskeletal head and neck Overall: cervical spine benign 07/26/2016 None Full Exam - General 1994 Integument inspection of skin Location: face 07/26/2016 left cheeck with nodular lesion wtih central depression/scab, tender to touch Full Exam - General 1994 Neurologic gait Overall: no ataxia, no unsteadiness 07/26/2016 None Full Exam - General 1994 Neurologic cranial nerves Overall: crainial nerves 2 - 12 grossly intact 07/26/2016 None Full Exam - General 1994 Psychiatric orientation/consciousness Overall: oriented to person, place and time 07/26/2016 None Full Exam - General 1994 Psychiatric mood and affect Overall: normal mood and affect 07/26/2016 None Full Exam - General 1994 Constitutional general appearance Overall: well developed 04/26/2016 None Full Exam - General 1994 Constitutional general appearance Overall: in no acute distress 04/26/2016 None Full Exam - General 1994 Constitutional general appearance Overall: well nourished 04/26/2016 None Full Exam - General 1994 Eyes pupils and irises Overall: pupils equal, round, reactive to light and accomodation 04/26/2016 None Full Exam - General 1994 Ears/Nose/Throat otoscopic exam Overall: external auditory canals clear 04/26/2016 None Full Exam - General 1994 Ears/Nose/Throat otoscopic exam Overall: tympanic membranes clear 04/26/2016 None Full Exam - General 1994 Ears/Nose/Throat lips/teeth/gingiva Overall: benign lips 04/26/2016 None Full Exam - General 1994 Ears/Nose/Throat lips/teeth/gingiva Overall: no masses 04/26/2016 None Full Exam - General 1994 Ears/Nose/Throat oral cavity/pharynx/larynx Overall: oral mucosa clear 04/26/2016 None Full Exam - General 1994 Ears/Nose/Throat oral cavity/pharynx/larynx Overall: oropharyngeal mucosa clear 04/26/2016 None Full Exam - General 1994 Respiratory auscultation Overall: breath sounds clear bilaterally 04/26/2016 None Full Exam - General 1994 Respiratory respiratory effort/rhythm Overall: no retractions 04/26/2016 None Full Exam - General 1994 Respiratory respiratory effort/rhythm Overall: normal rate 04/26/2016 None Full Exam - General 1994 Cardiovascular auscultation of heart Overall: regular rate 04/26/2016 None Full Exam - General 1994 Cardiovascular auscultation of heart Systolic murmur: mechanical 04/26/2016 None Full Exam - General 1994 Abdomen abdominal exam Overall: no tenderness 04/26/2016 None Full Exam - General 1994 Abdomen abdominal exam Overall: normal bowel sounds 04/26/2016 None Full Exam - General 1994 Musculoskeletal lower extremity Inspection - knee: presence of a scar 04/26/2016 None Full Exam - General 1994 Musculoskeletal lower extremity Palpation - knee: no effusion 04/26/2016 None Full Exam - General 1994 Musculoskeletal head and neck Overall: head atraumatic 04/26/2016 None Full Exam - General 1994 Musculoskeletal head and neck Overall: TMJ benign 04/26/2016 None Full Exam - General 1994 Musculoskeletal head and neck Overall: cervical spine benign 04/26/2016 None Full Exam - General 1994 Neurologic gait Overall: no ataxia, no unsteadiness 04/26/2016 None Full Exam - General 1994 Neurologic cranial nerves Overall: crainial nerves 2 - 12 grossly intact 04/26/2016 None Full Exam - General 1994 Psychiatric orientation/consciousness Overall: oriented to person, place and time 04/26/2016 None Full Exam - General 1994 Psychiatric mood and affect Overall: normal mood and affect 04/26/2016 None Full Exam - General 1994 Constitutional general appearance Overall: well developed 01/27/2016 None Full Exam - General 1994 Constitutional general appearance Overall: in no acute distress 01/27/2016 None Full Exam - General 1994 Constitutional general appearance Overall: well nourished 01/27/2016 None Full Exam - General 1994 Eyes pupils and irises Overall: pupils equal, round, reactive to light and accomodation 01/27/2016 None Full Exam - General 1994 Ears/Nose/Throat otoscopic exam Overall: external auditory canals clear 01/27/2016 None Full Exam - General 1994 Ears/Nose/Throat otoscopic exam Overall: tympanic membranes clear 01/27/2016 None Full Exam - General 1994 Ears/Nose/Throat lips/teeth/gingiva Overall: benign lips 01/27/2016 None Full Exam - General 1994 Ears/Nose/Throat lips/teeth/gingiva Overall: no masses 01/27/2016 None Full Exam - General 1994 Ears/Nose/Throat oral cavity/pharynx/larynx Overall: oral mucosa clear 01/27/2016 None Full Exam - General 1994 Ears/Nose/Throat oral cavity/pharynx/larynx Overall: oropharyngeal mucosa clear 01/27/2016 None Full Exam - General 1994 Respiratory auscultation Overall: breath sounds clear bilaterally 01/27/2016 None Full Exam - General 1994 Respiratory respiratory effort/rhythm Overall: no retractions 01/27/2016 None Full Exam - General 1994 Respiratory respiratory effort/rhythm Overall: normal rate 01/27/2016 None Full Exam - General 1994 Cardiovascular auscultation of heart Overall: regular rate 01/27/2016 None Full Exam - General 1994 Cardiovascular auscultation of heart Systolic murmur: mechanical 01/27/2016 None Full Exam - General 1994 Abdomen abdominal exam Overall: no tenderness 01/27/2016 None Full Exam - General 1994 Abdomen abdominal exam Overall: normal bowel sounds 01/27/2016 None Full Exam - General 1994 Musculoskeletal lower extremity Inspection - knee: presence of a scar 01/27/2016 None Full Exam - General 1994 Musculoskeletal lower extremity Palpation - knee: no effusion 01/27/2016 None Full Exam - General 1994 Musculoskeletal head and neck Overall: head atraumatic 01/27/2016 None Full Exam - General 1994 Musculoskeletal head and neck Overall: TMJ benign 01/27/2016 None Full Exam - General 1994 Musculoskeletal head and neck Overall: cervical spine benign 01/27/2016 None Full Exam - General 1994 Integument inspection of skin Location: face 01/27/2016 left cheeck with nodular lesion wtih central depression/scab, tender to touch Full Exam - General 1994 Neurologic gait Overall: no ataxia, no unsteadiness 01/27/2016 None Full Exam - General 1994 Neurologic cranial nerves Overall: crainial nerves 2 - 12 grossly intact 01/27/2016 None Full Exam - General 1994 Psychiatric orientation/consciousness Overall: oriented to person, place and time 01/27/2016 None Full Exam - General 1994 Psychiatric mood and affect Overall: normal mood and affect 01/27/2016 None Full Exam - General 1994 Constitutional general appearance Overall: well developed 10/27/2015 None Full Exam - General 1994 Constitutional general appearance Overall: in no acute distress 10/27/2015 None Full Exam - General 1994 Constitutional general appearance Overall: well nourished 10/27/2015 None Full Exam - General 1994 Eyes pupils and irises Overall: pupils equal, round, reactive to light and accomodation 10/27/2015 None Full Exam - General 1994 Ears/Nose/Throat otoscopic exam Overall: external auditory canals clear 10/27/2015 None Full Exam - General 1994 Ears/Nose/Throat otoscopic exam Overall: tympanic membranes clear 10/27/2015 None Full Exam - General 1994 Ears/Nose/Throat lips/teeth/gingiva Overall: benign lips 10/27/2015 None Full Exam - General 1994 Ears/Nose/Throat lips/teeth/gingiva Overall: no masses 10/27/2015 None Full Exam - General 1994 Ears/Nose/Throat oral cavity/pharynx/larynx Overall: oral mucosa clear 10/27/2015 None Full Exam - General 1994 Ears/Nose/Throat oral cavity/pharynx/larynx Overall: oropharyngeal mucosa clear 10/27/2015 None Full Exam - General 1994 Respiratory auscultation Overall: breath sounds clear bilaterally 10/27/2015 None Full Exam - General 1994 Respiratory respiratory effort/rhythm Overall: no retractions 10/27/2015 None Full Exam - General 1994 Respiratory respiratory effort/rhythm Overall: normal rate 10/27/2015 None Full Exam - General 1994 Cardiovascular auscultation of heart Overall: regular rate 10/27/2015 None Full Exam - General 1994 Cardiovascular auscultation of heart Systolic murmur: mechanical 10/27/2015 None Full Exam - General 1994 Abdomen abdominal exam Overall: no tenderness 10/27/2015 None Full Exam - General 1994 Abdomen abdominal exam Overall: normal bowel sounds 10/27/2015 None Full Exam - General 1994 Musculoskeletal lower extremity Inspection - knee: presence of a scar 10/27/2015 None Full Exam - General 1994 Musculoskeletal lower extremity Palpation - knee: no effusion 10/27/2015 None Full Exam - General 1994 Musculoskeletal head and neck Overall: head atraumatic 10/27/2015 None Full Exam - General 1994 Musculoskeletal head and neck Overall: TMJ benign 10/27/2015 None Full Exam - General 1994 Musculoskeletal head and neck Overall: cervical spine benign 10/27/2015 None Full Exam - General 1994 Integument inspection of skin Location: face 10/27/2015 left cheeck with nodular lesion wtih central depression/scab, tender to touch Full Exam - General 1994 Neurologic gait Overall: no ataxia, no unsteadiness 10/27/2015 None Full Exam - General 1994 Neurologic cranial nerves Overall: crainial nerves 2 - 12 grossly intact 10/27/2015 None Full Exam - General 1994 Psychiatric orientation/consciousness Overall: oriented to person, place and time 10/27/2015 None Full Exam - General 1994 Psychiatric mood and affect Overall: normal mood and affect 10/27/2015 None Full Exam - General 1994 Constitutional general appearance Overall: well developed 06/30/2015 None Full Exam - General 1994 Constitutional general appearance Overall: in no acute distress 06/30/2015 None Full Exam - General 1994 Constitutional general appearance Overall: well nourished 06/30/2015 None Full Exam - General 1994 Eyes pupils and irises Overall: pupils equal, round, reactive to light and accomodation 06/30/2015 None Full Exam - General 1994 Ears/Nose/Throat otoscopic exam Overall: external auditory canals clear 06/30/2015 None Full Exam - General 1994 Ears/Nose/Throat otoscopic exam Overall: tympanic membranes clear 06/30/2015 None Full Exam - General 1994 Ears/Nose/Throat lips/teeth/gingiva Overall: benign lips 06/30/2015 None Full Exam - General 1994 Ears/Nose/Throat lips/teeth/gingiva Overall: no masses 06/30/2015 None Full Exam - General 1994 Ears/Nose/Throat oral cavity/pharynx/larynx Overall: oral mucosa clear 06/30/2015 None Full Exam - General 1994 Ears/Nose/Throat oral cavity/pharynx/larynx Overall: oropharyngeal mucosa clear 06/30/2015 None Full Exam - General 1994 Respiratory auscultation Overall: breath sounds clear bilaterally 06/30/2015 None Full Exam - General 1994 Respiratory respiratory effort/rhythm Overall: no retractions 06/30/2015 None Full Exam - General 1994 Respiratory respiratory effort/rhythm Overall: normal rate 06/30/2015 None Full Exam - General 1994 Cardiovascular auscultation of heart Overall: regular rate 06/30/2015 None Full Exam - General 1994 Cardiovascular auscultation of heart Systolic murmur: mechanical 06/30/2015 None Full Exam - General 1994 Abdomen abdominal exam Overall: no tenderness 06/30/2015 None Full Exam - General 1994 Abdomen abdominal exam Overall: normal bowel sounds 06/30/2015 None Full Exam - General 1994 Musculoskeletal lower extremity Inspection - knee: presence of a scar 06/30/2015 None Full Exam - General 1994 Musculoskeletal lower extremity Palpation - knee: no effusion 06/30/2015 None Full Exam - General 1994 Musculoskeletal head and neck Overall: head atraumatic 06/30/2015 None Full Exam - General 1994 Musculoskeletal head and neck Overall: TMJ benign 06/30/2015 None Full Exam - General 1994 Musculoskeletal head and neck Overall: cervical spine benign 06/30/2015 None Full Exam - General 1994 Integument inspection of skin Location: face 06/30/2015 left cheeck with nodular lesion wtih central depression/scab, tender to touch Full Exam - General 1994 Neurologic gait Overall: no ataxia, no unsteadiness 06/30/2015 None Full Exam - General 1994 Neurologic cranial nerves Overall: crainial nerves 2 - 12 grossly intact 06/30/2015 None Full Exam - General 1994 Psychiatric orientation/consciousness Overall: oriented to person, place and time 06/30/2015 None Full Exam - General 1994 Psychiatric mood and affect Overall: normal mood and affect 06/30/2015 None Full Exam - General 1994 Constitutional general appearance Overall: well developed 03/31/2015 None Full Exam - General 1994 Constitutional general appearance Overall: in no acute distress 03/31/2015 None Full Exam - General 1994 Constitutional general appearance Overall: well nourished 03/31/2015 None Full Exam - General 1994 Eyes pupils and irises Overall: pupils equal, round, reactive to light and accomodation 03/31/2015 None Full Exam - General 1994 Ears/Nose/Throat otoscopic exam Overall: external auditory canals clear 03/31/2015 None Full Exam - General 1994 Ears/Nose/Throat otoscopic exam Overall: tympanic membranes clear 03/31/2015 None Full Exam - General 1994 Ears/Nose/Throat lips/teeth/gingiva Overall: benign lips 03/31/2015 None Full Exam - General 1994 Ears/Nose/Throat lips/teeth/gingiva Overall: no masses 03/31/2015 None Full Exam - General 1994 Ears/Nose/Throat oral cavity/pharynx/larynx Overall: oral mucosa clear 03/31/2015 None Full Exam - General 1994 Ears/Nose/Throat oral cavity/pharynx/larynx Overall: oropharyngeal mucosa clear 03/31/2015 None Full Exam - General 1994 Respiratory auscultation Overall: breath sounds clear bilaterally 03/31/2015 None Full Exam - General 1994 Respiratory respiratory effort/rhythm Overall: no retractions 03/31/2015 None Full Exam - General 1994 Respiratory respiratory effort/rhythm Overall: normal rate 03/31/2015 None Full Exam - General 1994 Cardiovascular auscultation of heart Overall: regular rate 03/31/2015 None Full Exam - General 1994 Cardiovascular auscultation of heart Systolic murmur: mechanical 03/31/2015 None Full Exam - General 1994 Abdomen abdominal exam Overall: no tenderness 03/31/2015 None Full Exam - General 1994 Abdomen abdominal exam Overall: normal bowel sounds 03/31/2015 None Full Exam - General 1994 Musculoskeletal lower extremity Inspection - knee: presence of a scar 03/31/2015 None Full Exam - General 1994 Musculoskeletal lower extremity Palpation - knee: no effusion 03/31/2015 None Full Exam - General 1994 Musculoskeletal head and neck Overall: head atraumatic 03/31/2015 None Full Exam - General 1994 Musculoskeletal head and neck Overall: TMJ benign 03/31/2015 None Full Exam - General 1994 Musculoskeletal head and neck Overall: cervical spine benign 03/31/2015 None Full Exam - General 1994 Integument inspection of skin Location: face 03/31/2015 left cheeck with nodular lesion wtih central depression/scab, tender to touch Full Exam - General 1994 Neurologic gait Overall: no ataxia, no unsteadiness 03/31/2015 None Full Exam - General 1994 Neurologic cranial nerves Overall: crainial nerves 2 - 12 grossly intact 03/31/2015 None Full Exam - General 1994 Psychiatric orientation/consciousness Overall: oriented to person, place and time 03/31/2015 None Full Exam - General 1994 Psychiatric mood and affect Overall: normal mood and affect 03/31/2015 None Full Exam - General 1994 Constitutional general appearance Overall: well developed 03/17/2015 None Full Exam - General 1994 Constitutional general appearance Overall: in no acute distress 03/17/2015 None Full Exam - General 1994 Constitutional general appearance Overall: well nourished 03/17/2015 None Full Exam - General 1994 Eyes pupils and irises Overall: pupils equal, round, reactive to light and accomodation 03/17/2015 None Full Exam - General 1994 Ears/Nose/Throat otoscopic exam Overall: external auditory canals clear 03/17/2015 None Full Exam - General 1994 Ears/Nose/Throat otoscopic exam Overall: tympanic membranes clear 03/17/2015 None Full Exam - General 1994 Ears/Nose/Throat lips/teeth/gingiva Overall: benign lips 03/17/2015 None Full Exam - General 1994 Ears/Nose/Throat lips/teeth/gingiva Overall: no masses 03/17/2015 None Full Exam - General 1994 Ears/Nose/Throat oral cavity/pharynx/larynx Overall: oral mucosa clear 03/17/2015 None Full Exam - General 1994 Ears/Nose/Throat oral cavity/pharynx/larynx Overall: oropharyngeal mucosa clear 03/17/2015 None Full Exam - General 1994 Respiratory auscultation Overall: breath sounds clear bilaterally 03/17/2015 None Full Exam - General 1994 Respiratory respiratory effort/rhythm Overall: no retractions 03/17/2015 None Full Exam - General 1994 Respiratory respiratory effort/rhythm Overall: normal rate 03/17/2015 None Full Exam - General 1994 Cardiovascular auscultation of heart Overall: regular rate 03/17/2015 None Full Exam - General 1994 Cardiovascular auscultation of heart Systolic murmur: mechanical 03/17/2015 None Full Exam - General 1994 Abdomen abdominal exam Overall: no tenderness 03/17/2015 None Full Exam - General 1994 Abdomen abdominal exam Overall: normal bowel sounds 03/17/2015 None Full Exam - General 1994 Musculoskeletal lower extremity Inspection - knee: presence of a scar 03/17/2015 None Full Exam - General 1994 Musculoskeletal head and neck Overall: head atraumatic 03/17/2015 None Full Exam - General 1994 Musculoskeletal head and neck Overall: TMJ benign 03/17/2015 None Full Exam - General 1994 Musculoskeletal head and neck Overall: cervical spine benign 03/17/2015 None Full Exam - General 1994 Neurologic gait Overall: no ataxia, no unsteadiness 03/17/2015 None Full Exam - General 1994 Neurologic cranial nerves Overall: crainial nerves 2 - 12 grossly intact 03/17/2015 None Full Exam - General 1994 Psychiatric orientation/consciousness Overall: oriented to person, place and time 03/17/2015 None Full Exam - General 1994 Psychiatric mood and affect Overall: normal mood and affect 03/17/2015 None Full Exam - General 1994 Musculoskeletal spine, ribs and pelvis Spine: full rotation 03/17/2015 Pain while leaning forwar d Full Exam - General 1994 Musculoskeletal spine, ribs and pelvis Spine: full flexion 03/17/2015 None Full Exam - General 1994 Musculoskeletal spine, ribs and pelvis Spine: full lateral bending 03/17/2015 None Full Exam - General 1994 Constitutional general appearance Overall: well developed 01/20/2015 None Full Exam - General 1994 Constitutional general appearance Overall: in no acute distress 01/20/2015 None Full Exam - General 1994 Constitutional general appearance Overall: well nourished 01/20/2015 None Full Exam - General 1994 Eyes pupils and irises Overall: pupils equal, round, reactive to light and accomodation 01/20/2015 None Full Exam - General 1994 Ears/Nose/Throat otoscopic exam Overall: external auditory canals clear 01/20/2015 None Full Exam - General 1994 Ears/Nose/Throat otoscopic exam Overall: tympanic membranes clear 01/20/2015 None Full Exam - General 1994 Ears/Nose/Throat lips/teeth/gingiva Overall: benign lips 01/20/2015 None Full Exam - General 1994 Ears/Nose/Throat lips/teeth/gingiva Overall: no masses 01/20/2015 None Full Exam - General 1994 Ears/Nose/Throat oral cavity/pharynx/larynx Overall: oral mucosa clear 01/20/2015 None Full Exam - General 1994 Ears/Nose/Throat oral cavity/pharynx/larynx Overall: oropharyngeal mucosa clear 01/20/2015 None Full Exam - General 1994 Respiratory auscultation Overall: breath sounds clear bilaterally 01/20/2015 None Full Exam - General 1994 Respiratory respiratory effort/rhythm Overall: no retractions 01/20/2015 None Full Exam - General 1994 Respiratory respiratory effort/rhythm Overall: normal rate 01/20/2015 None Full Exam - General 1994 Cardiovascular auscultation of heart Overall: regular rate 01/20/2015 None Full Exam - General 1994 Cardiovascular auscultation of heart Systolic murmur: mechanical 01/20/2015 None Full Exam - General 1994 Abdomen abdominal exam Overall: no tenderness 01/20/2015 None Full Exam - General 1994 Abdomen abdominal exam Overall: normal bowel sounds 01/20/2015 None Full Exam - General 1994 Musculoskeletal head and neck Overall: head atraumatic 01/20/2015 None Full Exam - General 1994 Musculoskeletal head and neck Overall: TMJ benign 01/20/2015 None Full Exam - General 1994 Musculoskeletal head and neck Overall: cervical spine benign 01/20/2015 None Full Exam - General 1994 Neurologic gait Overall: no ataxia, no unsteadiness 01/20/2015 None Full Exam - General 1994 Neurologic cranial nerves Overall: crainial nerves 2 - 12 grossly intact 01/20/2015 None Full Exam - General 1994 Psychiatric orientation/consciousness Overall: oriented to person, place and time 01/20/2015 None Full Exam - General 1994 Psychiatric mood and affect Overall: normal mood and affect 01/20/2015 None Full Exam - General 1994 Musculoskeletal lower extremity Palpation - knee: no effusion 01/20/2015 None Full Exam - General 1994 Musculoskeletal lower extremity Inspection - knee: presence of a scar 01/20/2015 None Full Exam - General 1994 Integument inspection of skin Location: face 01/20/2015 left cheeck with nodular lesion wtih central depression/scab, tender to touch Full Exam - General 1994 Constitutional general appearance Overall: well developed 12/15/2014 None Full Exam - General 1994 Constitutional general appearance Overall: in no acute distress 12/15/2014 None Full Exam - General 1994 Constitutional general appearance Overall: well nourished 12/15/2014 None Full Exam - General 1994 Eyes pupils and irises Overall: pupils equal, round, reactive to light and accomodation 12/15/2014 None Full Exam - General 1994 Ears/Nose/Throat otoscopic exam Overall: external auditory canals clear 12/15/2014 None Full Exam - General 1994 Ears/Nose/Throat otoscopic exam Overall: tympanic membranes clear 12/15/2014 None Full Exam - General 1994 Ears/Nose/Throat lips/teeth/gingiva Overall: benign lips 12/15/2014 None Full Exam - General 1994 Ears/Nose/Throat lips/teeth/gingiva Overall: no masses 12/15/2014 None Full Exam - General 1994 Ears/Nose/Throat oral cavity/pharynx/larynx Overall: oral mucosa clear 12/15/2014 None Full Exam - General 1994 Ears/Nose/Throat oral cavity/pharynx/larynx Overall: oropharyngeal mucosa clear 12/15/2014 None Full Exam - General 1994 Respiratory auscultation Overall: breath sounds clear bilaterally 12/15/2014 None Full Exam - General 1994 Respiratory respiratory effort/rhythm Overall: no retractions 12/15/2014 None Full Exam - General 1994 Respiratory respiratory effort/rhythm Overall: normal rate 12/15/2014 None Full Exam - General 1994 Cardiovascular auscultation of heart Overall: regular rate 12/15/2014 None Full Exam - General 1994 Cardiovascular auscultation of heart Systolic murmur: mechanical 12/15/2014 None Full Exam - General 1994 Abdomen abdominal exam Overall: no tenderness 12/15/2014 None Full Exam - General 1994 Abdomen abdominal exam Overall: normal bowel sounds 12/15/2014 None Full Exam - General 1994 Musculoskeletal lower extremity Palpation - knee: crepitus 12/15/2014 None Full Exam - General 1994 Musculoskeletal head and neck Overall: head atraumatic 12/15/2014 None Full Exam - General 1994 Musculoskeletal head and neck Overall: TMJ benign 12/15/2014 None Full Exam - General 1994 Musculoskeletal head and neck Overall: cervical spine benign 12/15/2014 None Full Exam - General 1994 Neurologic gait Overall: no ataxia, no unsteadiness 12/15/2014 None Full Exam - General 1994 Neurologic cranial nerves Overall: crainial nerves 2 - 12 grossly intact 12/15/2014 None Full Exam - General 1994 Psychiatric orientation/consciousness Overall: oriented to person, place and time 12/15/2014 None Full Exam - General 1994 Psychiatric mood and affect Overall: normal mood and affect 12/15/2014 None Full Exam - General 1994 Constitutional general appearance Overall: well developed 09/30/2014 None Full Exam - General 1994 Constitutional general appearance Overall: in no acute distress 09/30/2014 None Full Exam - General 1994 Constitutional general appearance Overall: well nourished 09/30/2014 None Full Exam - General 1994 Eyes pupils and irises Overall: pupils equal, round, reactive to light and accomodation 09/30/2014 None Full Exam - General 1994 Ears/Nose/Throat otoscopic exam Overall: external auditory canals clear 09/30/2014 None Full Exam - General 1994 Ears/Nose/Throat otoscopic exam Overall: tympanic membranes clear 09/30/2014 None Full Exam - General 1994 Ears/Nose/Throat lips/teeth/gingiva Overall: benign lips 09/30/2014 None Full Exam - General 1994 Ears/Nose/Throat lips/teeth/gingiva Overall: no masses 09/30/2014 None Full Exam - General 1994 Ears/Nose/Throat oral cavity/pharynx/larynx Overall: oral mucosa clear 09/30/2014 None Full Exam - General 1994 Ears/Nose/Throat oral cavity/pharynx/larynx Overall: oropharyngeal mucosa clear 09/30/2014 None Full Exam - General 1994 Respiratory auscultation Overall: breath sounds clear bilaterally 09/30/2014 None Full Exam - General 1994 Respiratory respiratory effort/rhythm Overall: no retractions 09/30/2014 None Full Exam - General 1994 Respiratory respiratory effort/rhythm Overall: normal rate 09/30/2014 None Full Exam - General 1994 Cardiovascular auscultation of heart Overall: regular rate 09/30/2014 None Full Exam - General 1994 Cardiovascular auscultation of heart Systolic murmur: mechanical 09/30/2014 None Full Exam - General 1994 Abdomen abdominal exam Overall: no tenderness 09/30/2014 None Full Exam - General 1994 Abdomen abdominal exam Overall: normal bowel sounds 09/30/2014 None Full Exam - General 1994 Musculoskeletal lower extremity Palpation - knee: crepitus 09/30/2014 None Full Exam - General 1994 Musculoskeletal head and neck Overall: head atraumatic 09/30/2014 None Full Exam - General 1994 Musculoskeletal head and neck Overall: TMJ benign 09/30/2014 None Full Exam - General 1994 Musculoskeletal head and neck Overall: cervical spine benign 09/30/2014 None Full Exam - General 1994 Neurologic gait Overall: no ataxia, no unsteadiness 09/30/2014 None Full Exam - General 1994 Neurologic cranial nerves Overall: crainial nerves 2 - 12 grossly intact 09/30/2014 None Full Exam - General 1994 Psychiatric orientation/consciousness Overall: oriented to person, place and time 09/30/2014 None Full Exam - General 1994 Psychiatric mood and affect Overall: normal mood and affect 09/30/2014 None Full Exam - General 1994 Constitutional general appearance Overall: well developed 07/01/2014 None Full Exam - General 1994 Constitutional general appearance Overall: in no acute distress 07/01/2014 None Full Exam - General 1994 Constitutional general appearance Overall: well nourished 07/01/2014 None Full Exam - General 1994 Eyes pupils and irises Overall: pupils equal, round, reactive to light and accomodation 07/01/2014 None Full Exam - General 1994 Ears/Nose/Throat otoscopic exam Overall: external auditory canals clear 07/01/2014 None Full Exam - General 1994 Ears/Nose/Throat otoscopic exam Overall: tympanic membranes clear 07/01/2014 None Full Exam - General 1994 Ears/Nose/Throat lips/teeth/gingiva Overall: benign lips 07/01/2014 None Full Exam - General 1994 Ears/Nose/Throat lips/teeth/gingiva Overall: no masses 07/01/2014 None Full Exam - General 1994 Ears/Nose/Throat oral cavity/pharynx/larynx Overall: oral mucosa clear 07/01/2014 None Full Exam - General 1994 Ears/Nose/Throat oral cavity/pharynx/larynx Overall: oropharyngeal mucosa clear 07/01/2014 None Full Exam - General 1994 Respiratory auscultation Overall: breath sounds clear bilaterally 07/01/2014 None Full Exam - General 1994 Respiratory respiratory effort/rhythm Overall: no retractions 07/01/2014 None Full Exam - General 1994 Respiratory respiratory effort/rhythm Overall: normal rate 07/01/2014 None Full Exam - General 1994 Cardiovascular auscultation of heart Overall: regular rate 07/01/2014 None Full Exam - General 1994 Cardiovascular auscultation of heart Systolic murmur: mechanical 07/01/2014 None Full Exam - General 1994 Abdomen abdominal exam Overall: no tenderness 07/01/2014 None Full Exam - General 1994 Abdomen abdominal exam Overall: normal bowel sounds 07/01/2014 None Full Exam - General 1994 Musculoskeletal lower extremity Palpation - knee: crepitus 07/01/2014 None Full Exam - General 1994 Musculoskeletal head and neck Overall: head atraumatic 07/01/2014 None Full Exam - General 1994 Musculoskeletal head and neck Overall: TMJ benign 07/01/2014 None Full Exam - General 1994 Musculoskeletal head and neck Overall: cervical spine benign 07/01/2014 None Full Exam - General 1994 Neurologic gait Overall: no ataxia, no unsteadiness 07/01/2014 None Full Exam - General 1994 Neurologic cranial nerves Overall: crainial nerves 2 - 12 grossly intact 07/01/2014 None Full Exam - General 1994 Psychiatric orientation/consciousness Overall: oriented to person, place and time 07/01/2014 None Full Exam - General 1994 Psychiatric mood and affect Overall: normal mood and affect 07/01/2014 None Full Exam - General 1994 Constitutional general appearance Overall: well developed 04/01/2014 None Full Exam - General 1994 Constitutional general appearance Overall: in no acute distress 04/01/2014 None Full Exam - General 1994 Constitutional general appearance Overall: well nourished 04/01/2014 None Full Exam - General 1994 Eyes pupils and irises Overall: pupils equal, round, reactive to light and accomodation 04/01/2014 None Full Exam - General 1994 Ears/Nose/Throat otoscopic exam Overall: external auditory canals clear 04/01/2014 None Full Exam - General 1994 Ears/Nose/Throat otoscopic exam Overall: tympanic membranes clear 04/01/2014 None Full Exam - General 1994 Ears/Nose/Throat lips/teeth/gingiva Overall: benign lips 04/01/2014 None Full Exam - General 1994 Ears/Nose/Throat lips/teeth/gingiva Overall: no masses 04/01/2014 None Full Exam - General 1994 Ears/Nose/Throat oral cavity/pharynx/larynx Overall: oral mucosa clear 04/01/2014 None Full Exam - General 1994 Ears/Nose/Throat oral cavity/pharynx/larynx Overall: oropharyngeal mucosa clear 04/01/2014 None Full Exam - General 1994 Respiratory auscultation Overall: breath sounds clear bilaterally 04/01/2014 None Full Exam - General 1994 Respiratory respiratory effort/rhythm Overall: no retractions 04/01/2014 None Full Exam - General 1994 Respiratory respiratory effort/rhythm Overall: normal rate 04/01/2014 None Full Exam - General 1994 Cardiovascular auscultation of heart Overall: regular rate 04/01/2014 None Full Exam - General 1994 Cardiovascular auscultation of heart Systolic murmur: mechanical 04/01/2014 None Full Exam - General 1994 Abdomen abdominal exam Overall: no tenderness 04/01/2014 None Full Exam - General 1994 Abdomen abdominal exam Overall: normal bowel sounds 04/01/2014 None Full Exam - General 1994 Musculoskeletal lower extremity Palpation - knee: crepitus 04/01/2014 None Full Exam - General 1994 Musculoskeletal head and neck Overall: head atraumatic 04/01/2014 None Full Exam - General 1994 Musculoskeletal head and neck Overall: TMJ benign 04/01/2014 None Full Exam - General 1994 Musculoskeletal head and neck Overall: cervical spine benign 04/01/2014 None Full Exam - General 1994 Neurologic gait Overall: no ataxia, no unsteadiness 04/01/2014 None Full Exam - General 1994 Neurologic cranial nerves Overall: crainial nerves 2 - 12 grossly intact 04/01/2014 None Full Exam - General 1994 Psychiatric orientation/consciousness Overall: oriented to person, place and time 04/01/2014 None Full Exam - General 1994 Psychiatric mood and affect Overall: normal mood and affect 04/01/2014 None Full Exam - General 1994 Constitutional general appearance Overall: well developed 01/13/2014 None Full Exam - General 1994 Constitutional general appearance Overall: in no acute distress 01/13/2014 None Full Exam - General 1994 Constitutional general appearance Overall: well nourished 01/13/2014 None Full Exam - General 1994 Eyes pupils and irises Overall: pupils equal, round, reactive to light and accomodation 01/13/2014 None Full Exam - General 1994 Ears/Nose/Throat otoscopic exam Overall: external auditory canals clear 01/13/2014 None Full Exam - General 1994 Ears/Nose/Throat otoscopic exam Overall: tympanic membranes clear 01/13/2014 None Full Exam - General 1994 Ears/Nose/Throat lips/teeth/gingiva Overall: benign lips 01/13/2014 None Full Exam - General 1994 Ears/Nose/Throat lips/teeth/gingiva Overall: no masses 01/13/2014 None Full Exam - General 1994 Ears/Nose/Throat oral cavity/pharynx/larynx Overall: oral mucosa clear 01/13/2014 None Full Exam - General 1994 Ears/Nose/Throat oral cavity/pharynx/larynx Overall: oropharyngeal mucosa clear 01/13/2014 None Full Exam - General 1994 Respiratory auscultation Overall: breath sounds clear bilaterally 01/13/2014 None Full Exam - General 1994 Respiratory respiratory effort/rhythm Overall: no retractions 01/13/2014 None Full Exam - General 1994 Respiratory respiratory effort/rhythm Overall: normal rate 01/13/2014 None Full Exam - General 1994 Cardiovascular auscultation of heart Overall: regular rate 01/13/2014 None Full Exam - General 1994 Cardiovascular auscultation of heart Systolic murmur: mechanical 01/13/2014 None Full Exam - General 1994 Abdomen abdominal exam Overall: no tenderness 01/13/2014 None Full Exam - General 1994 Abdomen abdominal exam Overall: normal bowel sounds 01/13/2014 None Full Exam - General 1994 Musculoskeletal lower extremity Palpation - knee: crepitus 01/13/2014 None Full Exam - General 1994 Musculoskeletal head and neck Overall: head atraumatic 01/13/2014 None Full Exam - General 1994 Musculoskeletal head and neck Overall: TMJ benign 01/13/2014 None Full Exam - General 1994 Musculoskeletal head and neck Overall: cervical spine benign 01/13/2014 None Full Exam - General 1994 Neurologic gait Overall: no ataxia, no unsteadiness 01/13/2014 None Full Exam - General 1994 Neurologic cranial nerves Overall: crainial nerves 2 - 12 grossly intact 01/13/2014 None Full Exam - General 1994 Psychiatric orientation/consciousness Overall: oriented to person, place and time 01/13/2014 None Full Exam - General 1994 Psychiatric mood and affect Overall: normal mood and affect 01/13/2014 None Full Exam - General 1994 Constitutional general appearance Overall: well developed 10/15/2013 None Full Exam - General 1994 Constitutional general appearance Overall: in no acute distress 10/15/2013 None Full Exam - General 1994 Constitutional general appearance Overall: well nourished 10/15/2013 None Full Exam - General 1994 Eyes pupils and irises Overall: pupils equal, round, reactive to light and accomodation 10/15/2013 None Full Exam - General 1994 Ears/Nose/Throat otoscopic exam Overall: external auditory canals clear 10/15/2013 None Full Exam - General 1994 Ears/Nose/Throat otoscopic exam Overall: tympanic membranes clear 10/15/2013 None Full Exam - General 1994 Ears/Nose/Throat lips/teeth/gingiva Overall: benign lips 10/15/2013 None Full Exam - General 1994 Ears/Nose/Throat lips/teeth/gingiva Overall: no masses 10/15/2013 None Full Exam - General 1994 Ears/Nose/Throat oral cavity/pharynx/larynx Overall: oral mucosa clear 10/15/2013 None Full Exam - General 1994 Ears/Nose/Throat oral cavity/pharynx/larynx Overall: oropharyngeal mucosa clear 10/15/2013 None Full Exam - General 1994 Respiratory auscultation Overall: breath sounds clear bilaterally 10/15/2013 None Full Exam - General 1994 Respiratory respiratory effort/rhythm Overall: no retractions 10/15/2013 None Full Exam - General 1994 Respiratory respiratory effort/rhythm Overall: normal rate 10/15/2013 None Full Exam - General 1994 Cardiovascular auscultation of heart Overall: regular rate 10/15/2013 None Full Exam - General 1994 Cardiovascular auscultation of heart Systolic murmur: mechanical 10/15/2013 None Full Exam - General 1994 Abdomen abdominal exam Overall: no tenderness 10/15/2013 None Full Exam - General 1994 Abdomen abdominal exam Overall: normal bowel sounds 10/15/2013 None Full Exam - General 1994 Musculoskeletal head and neck Overall: head atraumatic 10/15/2013 None Full Exam - General 1994 Musculoskeletal head and neck Overall: TMJ benign 10/15/2013 None Full Exam - General 1994 Musculoskeletal head and neck Overall: cervical spine benign 10/15/2013 None Full Exam - General 1994 Neurologic gait Overall: no ataxia, no unsteadiness 10/15/2013 None Full Exam - General 1994 Neurologic cranial nerves Overall: crainial nerves 2 - 12 grossly intact 10/15/2013 None Full Exam - General 1994 Psychiatric orientation/consciousness Overall: oriented to person, place and time 10/15/2013 None Full Exam - General 1994 Psychiatric mood and affect Overall: normal mood and affect 10/15/2013 None Full Exam - General 1994 Musculoskeletal lower extremity Palpation - knee: crepitus 10/15/2013 None Full Exam - General 1994 Constitutional general appearance Overall: well developed 09/11/2013 None Full Exam - General 1994 Constitutional general appearance Overall: in no acute distress 09/11/2013 None Full Exam - General 1994 Constitutional general appearance Overall: well nourished 09/11/2013 None Full Exam - General 1994 Eyes pupils and irises Overall: pupils equal, round, reactive to light and accomodation 09/11/2013 None Full Exam - General 1994 Ears/Nose/Throat otoscopic exam Overall: external auditory canals clear 09/11/2013 None Full Exam - General 1994 Ears/Nose/Throat otoscopic exam Overall: tympanic membranes clear 09/11/2013 None Full Exam - General 1994 Ears/Nose/Throat lips/teeth/gingiva Overall: benign lips 09/11/2013 None Full Exam - General 1994 Ears/Nose/Throat lips/teeth/gingiva Overall: no masses 09/11/2013 None Full Exam - General 1994 Ears/Nose/Throat oral cavity/pharynx/larynx Overall: oral mucosa clear 09/11/2013 None Full Exam - General 1994 Ears/Nose/Throat oral cavity/pharynx/larynx Overall: oropharyngeal mucosa clear 09/11/2013 None Full Exam - General 1994 Respiratory auscultation Overall: breath sounds clear bilaterally 09/11/2013 None Full Exam - General 1994 Respiratory respiratory effort/rhythm Overall: no retractions 09/11/2013 None Full Exam - General 1994 Respiratory respiratory effort/rhythm Overall: normal rate 09/11/2013 None Full Exam - General 1994 Cardiovascular auscultation of heart Overall: regular rate 09/11/2013 None Full Exam - General 1994 Cardiovascular auscultation of heart Systolic murmur: mechanical 09/11/2013 None Full Exam - General 1994 Abdomen abdominal exam Overall: no tenderness 09/11/2013 None Full Exam - General 1994 Abdomen abdominal exam Overall: normal bowel sounds 09/11/2013 None Full Exam - General 1994 Musculoskeletal head and neck Overall: head atraumatic 09/11/2013 None Full Exam - General 1994 Musculoskeletal head and neck Overall: TMJ benign 09/11/2013 None Full Exam - General 1994 Musculoskeletal head and neck Overall: cervical spine benign 09/11/2013 None Full Exam - General 1994 Neurologic gait Overall: no ataxia, no unsteadiness 09/11/2013 None Full Exam - General 1994 Neurologic cranial nerves Overall: crainial nerves 2 - 12 grossly intact 09/11/2013 None Full Exam - General 1994 Psychiatric orientation/consciousness Overall: oriented to person, place and time 09/11/2013 None Full Exam - General 1994 Psychiatric mood and affect Overall: normal mood and affect 09/11/2013 None Full Exam - General 1994 Constitutional general appearance Overall: well developed 08/22/2013 None Full Exam - General 1994 Constitutional general appearance Overall: in no acute distress 08/22/2013 None Full Exam - General 1994 Constitutional general appearance Overall: well nourished 08/22/2013 None Full Exam - General 1994 Eyes pupils and irises Overall: pupils equal, round, reactive to light and accomodation 08/22/2013 None Full Exam - General 1994 Ears/Nose/Throat otoscopic exam Overall: external auditory canals clear 08/22/2013 None Full Exam - General 1994 Ears/Nose/Throat otoscopic exam Overall: tympanic membranes clear 08/22/2013 None Full Exam - General 1994 Ears/Nose/Throat lips/teeth/gingiva Overall: benign lips 08/22/2013 None Full Exam - General 1994 Ears/Nose/Throat lips/teeth/gingiva Overall: no masses 08/22/2013 None Full Exam - General 1994 Ears/Nose/Throat oral cavity/pharynx/larynx Overall: oral mucosa clear 08/22/2013 None Full Exam - General 1994 Ears/Nose/Throat oral cavity/pharynx/larynx Overall: oropharyngeal mucosa clear 08/22/2013 None Full Exam - General 1994 Respiratory auscultation Overall: breath sounds clear bilaterally 08/22/2013 None Full Exam - General 1994 Respiratory respiratory effort/rhythm Overall: no retractions 08/22/2013 None Full Exam - General 1994 Respiratory respiratory effort/rhythm Overall: normal rate 08/22/2013 None Full Exam - General 1994 Cardiovascular auscultation of heart Overall: regular rate 08/22/2013 None Full Exam - General 1994 Cardiovascular auscultation of heart Systolic murmur: mechanical 08/22/2013 None Full Exam - General 1994 Abdomen abdominal exam Overall: no tenderness 08/22/2013 None Full Exam - General 1994 Abdomen abdominal exam Overall: normal bowel sounds 08/22/2013 None Full Exam - General 1994 Musculoskeletal head and neck Overall: head atraumatic 08/22/2013 None Full Exam - General 1994 Musculoskeletal head and neck Overall: TMJ benign 08/22/2013 None Full Exam - General 1994 Musculoskeletal head and neck Overall: cervical spine benign 08/22/2013 None Full Exam - General 1994 Neurologic gait Overall: no ataxia, no unsteadiness 08/22/2013 None Full Exam - General 1994 Neurologic cranial nerves Overall: crainial nerves 2 - 12 grossly intact 08/22/2013 None Full Exam - General 1994 Psychiatric orientation/consciousness Overall: oriented to person, place and time 08/22/2013 None Full Exam - General 1994 Psychiatric mood and affect Overall: normal mood and affect 08/22/2013 None Full Exam - General 1994 Integument inspection of skin Dermatitis: erythema 08/22/2013 right mandaen, no open are as, scabbed lesion healed Full Exam - Dermatology Constitutional general appearance Overall: well nourished 08/08/2013 None Full Exam - Dermatology Constitutional general appearance Overall: well developed 08/08/2013 None Full Exam - Dermatology Constitutional general appearance Overall: in no acute distress 08/08/2013 None Full Exam - Dermatology Integument insp & palp - head/face Lesion: patch 08/08/2013 --Improved. Decreasing in size with scabbed lesion near hairline Full Exam - Dermatology Integument insp & palp - head/face Location: on the right mandaen 08/08/2013 --Improved Full Exam - Dermatology Integument insp & palp - head/face Color: erythematous 08/08/2013 --Improved Full Exam - Dermatology Integument insp & palp - head/face Appearance: crusted 08/08/2013 --Improved Full Exam - Dermatology Integument insp & palp - head/face Length: 6cm 08/08/2013 --Improved Full Exam - Dermatology Integument insp & palp - head/face Width: 3cm 08/08/2013 --Improved Full Exam - Dermatology Psychiatric orientation Overall: oriented to person, place and time 08/08/2013 None Full Exam - Dermatology Constitutional general appearance Overall: well nourished 07/29/2013 None Full Exam - Dermatology Constitutional general appearance Overall: well developed 07/29/2013 None Full Exam - Dermatology Constitutional general appearance Overall: in no acute distress 07/29/2013 None Full Exam - Dermatology Psychiatric orientation Overall: oriented to person, place and time 07/29/2013 None Full Exam - Dermatology Integument insp & palp - head/face Location: on the right mandaen 07/29/2013 None Full Exam - Dermatology Integument insp & palp - head/face Color: erythematous 07/29/2013 None Full Exam - Dermatology Integument insp & palp - head/face Appearance: crusted 07/29/2013 None Full Exam - Dermatology Integument insp & palp - head/face Lesion: patch 07/29/2013 None Full Exam - Dermatology Integument insp & palp - head/face Length: 6cm 07/29/2013 None Full Exam - Dermatology Integument insp & palp - head/face Width: 3cm 07/29/2013 None Full Exam - General 1994 Constitutional general appearance Overall: well developed 06/25/2013 None Full Exam - General 1994 Constitutional general appearance Overall: in no acute distress 06/25/2013 None Full Exam - General 1994 Constitutional general appearance Overall: well nourished 06/25/2013 None Full Exam - General 1994 Eyes pupils and irises Overall: pupils equal, round, reactive to light and accomodation 06/25/2013 None Full Exam - General 1994 Ears/Nose/Throat otoscopic exam Overall: external auditory canals clear 06/25/2013 None Full Exam - General 1994 Ears/Nose/Throat otoscopic exam Overall: tympanic membranes clear 06/25/2013 None Full Exam - General 1994 Ears/Nose/Throat lips/teeth/gingiva Overall: benign lips 06/25/2013 None Full Exam - General 1994 Ears/Nose/Throat lips/teeth/gingiva Overall: no masses 06/25/2013 None Full Exam - General 1994 Ears/Nose/Throat oral cavity/pharynx/larynx Overall: oral mucosa clear 06/25/2013 None Full Exam - General 1994 Ears/Nose/Throat oral cavity/pharynx/larynx Overall: oropharyngeal mucosa clear 06/25/2013 None Full Exam - General 1994 Respiratory auscultation Overall: breath sounds clear bilaterally 06/25/2013 None Full Exam - General 1994 Respiratory respiratory effort/rhythm Overall: no retractions 06/25/2013 None Full Exam - General 1994 Respiratory respiratory effort/rhythm Overall: normal rate 06/25/2013 None Full Exam - General 1994 Cardiovascular auscultation of heart Overall: regular rate 06/25/2013 None Full Exam - General 1994 Cardiovascular auscultation of heart Systolic murmur: mechanical 06/25/2013 None Full Exam - General 1994 Abdomen abdominal exam Overall: no tenderness 06/25/2013 None Full Exam - General 1994 Abdomen abdominal exam Overall: normal bowel sounds 06/25/2013 None Full Exam - General 1994 Musculoskeletal head and neck Overall: head atraumatic 06/25/2013 None Full Exam - General 1994 Musculoskeletal head and neck Overall: TMJ benign 06/25/2013 None Full Exam - General 1994 Musculoskeletal head and neck Overall: cervical spine benign 06/25/2013 None Full Exam - General 1994 Integument inspection of skin Dermatitis: erythema 06/25/2013 left mandaen, with irritat ed center of lesion Full Exam - General 1994 Integument inspection of skin Dermatitis: dryness/flaking 06/25/2013 under right eye with horn development Full Exam - General 1994 Neurologic gait Overall: no ataxia, no unsteadiness 06/25/2013 None Full Exam - General 1994 Neurologic cranial nerves Overall: crainial nerves 2 - 12 grossly intact 06/25/2013 None Full Exam - General 1994 Psychiatric orientation/consciousness Overall: oriented to person, place and time 06/25/2013 None Full Exam - General 1994 Psychiatric mood and affect Overall: normal mood and affect 06/25/2013 None Full Exam - General 1994 Constitutional general appearance Overall: well developed 03/26/2013 None Full Exam - General 1994 Constitutional general appearance Overall: in no acute distress 03/26/2013 None Full Exam - General 1994 Constitutional general appearance Overall: well nourished 03/26/2013 None Full Exam - General 1994 Eyes pupils and irises Overall: pupils equal, round, reactive to light and accomodation 03/26/2013 None Full Exam - General 1994 Ears/Nose/Throat otoscopic exam Overall: external auditory canals clear 03/26/2013 None Full Exam - General 1994 Ears/Nose/Throat otoscopic exam Overall: tympanic membranes clear 03/26/2013 None Full Exam - General 1994 Ears/Nose/Throat lips/teeth/gingiva Overall: benign lips 03/26/2013 None Full Exam - General 1994 Ears/Nose/Throat lips/teeth/gingiva Overall: no masses 03/26/2013 None Full Exam - General 1994 Ears/Nose/Throat oral cavity/pharynx/larynx Overall: oral mucosa clear 03/26/2013 None Full Exam - General 1994 Ears/Nose/Throat oral cavity/pharynx/larynx Overall: oropharyngeal mucosa clear 03/26/2013 None Full Exam - General 1994 Respiratory auscultation Overall: breath sounds clear bilaterally 03/26/2013 None Full Exam - General 1994 Respiratory respiratory effort/rhythm Overall: no retractions 03/26/2013 None Full Exam - General 1994 Respiratory respiratory effort/rhythm Overall: normal rate 03/26/2013 None Full Exam - General 1994 Cardiovascular auscultation of heart Overall: regular rate 03/26/2013 None Full Exam - General 1994 Cardiovascular auscultation of heart Systolic murmur: mechanical 03/26/2013 None Full Exam - General 1994 Abdomen abdominal exam Overall: no tenderness 03/26/2013 None Full Exam - General 1994 Abdomen abdominal exam Overall: normal bowel sounds 03/26/2013 None Full Exam - General 1994 Musculoskeletal head and neck Overall: head atraumatic 03/26/2013 None Full Exam - General 1994 Musculoskeletal head and neck Overall: TMJ benign 03/26/2013 None Full Exam - General 1994 Musculoskeletal head and neck Overall: cervical spine benign 03/26/2013 None Full Exam - General 1994 Neurologic gait Overall: no ataxia, no unsteadiness 03/26/2013 None Full Exam - General 1994 Neurologic cranial nerves Overall: crainial nerves 2 - 12 grossly intact 03/26/2013 None Full Exam - General 1994 Psychiatric orientation/consciousness Overall: oriented to person, place and time 03/26/2013 None Full Exam - General 1994 Psychiatric mood and affect Overall: normal mood and affect 03/26/2013 None Full Exam - General 1994 Integument inspection of skin Dermatitis: erythema 03/26/2013 left mandaen, with irritat ed center of lesion Full Exam - General 1994 Integument inspection of skin Dermatitis: dryness/flaking 03/26/2013 under right eye with horn development Full Exam - General 1994 Psychiatric orientation/consciousness Overall: oriented to person, place and time 12/25/2012 None Full Exam - General 1994 Constitutional general appearance Overall: well developed 12/25/2012 None Full Exam - General 1994 Constitutional general appearance Overall: in no acute distress 12/25/2012 None Full Exam - General 1994 Constitutional general appearance Overall: well nourished 12/25/2012 None Full Exam - General 1994 Integument inspection of skin Location: face 12/25/2012 horn noted to right cheek Full Exam - General 1994 Abdomen abdominal exam Overall: normal bowel sounds 11/20/2012 None Full Exam - General 1994 Musculoskeletal head and neck Overall: head atraumatic 11/20/2012 None Full Exam - General 1994 Musculoskeletal head and neck Overall: TMJ benign 11/20/2012 None Full Exam - General 1994 Musculoskeletal head and neck Overall: cervical spine benign 11/20/2012 None Full Exam - General 1994 Neurologic gait Overall: no ataxia, no unsteadiness 11/20/2012 None Full Exam - General 1994 Neurologic cranial nerves Overall: crainial nerves 2 - 12 grossly intact 11/20/2012 None Full Exam - General 1994 Psychiatric orientation/consciousness Overall: oriented to person, place and time 11/20/2012 None Full Exam - General 1994 Psychiatric mood and affect Overall: normal mood and affect 11/20/2012 None Full Exam - General 1994 Eyes pupils and irises Overall: pupils equal, round, reactive to light and accomodation 11/20/2012 None Full Exam - General 1994 Ears/Nose/Throat otoscopic exam Overall: external auditory canals clear 11/20/2012 None Full Exam - General 1995 Ears/Nose/Throat otoscopic exam Overall: tympanic membranes clear 11/20/2012 None Full Exam - General 1994 Ears/Nose/Throat lips/teeth/gingiva Overall: benign lips 11/20/2012 None Full Exam - General 1995 Ears/Nose/Throat lips/teeth/gingiva Overall: no masses 11/20/2012 None Full Exam - General 1994 Ears/Nose/Throat oral cavity/pharynx/larynx Overall: oral mucosa clear 11/20/2012 None Full Exam - General 1995 Ears/Nose/Throat oral cavity/pharynx/larynx Overall: oropharyngeal mucosa clear 11/20/2012 None Full Exam - General 1994 Respiratory auscultation Overall: breath sounds clear bilaterally 11/20/2012 None Full Exam - General 1994 Respiratory respiratory effort/rhythm Overall: no retractions 11/20/2012 None Full Exam - General 1994 Respiratory respiratory effort/rhythm Overall: normal rate 11/20/2012 None Full Exam - General 1994 Cardiovascular auscultation of heart Overall: regular rate 11/20/2012 None Full Exam - General 1994 Cardiovascular auscultation of heart Systolic murmur: mechanical 11/20/2012 None Full Exam - General 1994 Abdomen abdominal exam Overall: no tenderness 11/20/2012 None Full Exam - General 1995 Constitutional general appearance Overall: well developed 11/20/2012 None Full Exam - General 1994 Constitutional general appearance Overall: in no acute distress 11/20/2012 None Full Exam - General 1995 Constitutional general appearance Overall: well nourished 11/20/2012 None Full Exam - General 1995 Ears/Nose/Throat oral cavity/pharynx/larynx Overall: oropharyngeal mucosa clear 08/21/2012 None Full Exam - General 1994 Respiratory auscultation Overall: breath sounds clear bilaterally 08/21/2012 None Full Exam - General 1994 Respiratory respiratory effort/rhythm Overall: no retractions 08/21/2012 None Full Exam - General 1994 Respiratory respiratory effort/rhythm Overall: normal rate 08/21/2012 None Full Exam - General 1994 Cardiovascular auscultation of heart Overall: regular rate 08/21/2012 None Full Exam - General 1994 Cardiovascular auscultation of heart Systolic murmur: mechanical 08/21/2012 None Full Exam - General 1994 Abdomen abdominal exam Overall: no tenderness 08/21/2012 None Full Exam - General 1994 Abdomen abdominal exam Overall: normal bowel sounds 08/21/2012 None Full Exam - General 1994 Musculoskeletal head and neck Overall: head atraumatic 08/21/2012 None Full Exam - General 1994 Ears/Nose/Throat lips/teeth/gingiva Overall: no masses 08/21/2012 None Full Exam - General 1994 Ears/Nose/Throat oral cavity/pharynx/larynx Overall: oral mucosa clear 08/21/2012 None Full Exam - General 1994 Psychiatric mood and affect Overall: normal mood and affect 08/21/2012 None Full Exam - General 1994 Musculoskeletal head and neck Overall: TMJ benign 08/21/2012 None Full Exam - General 1994 Musculoskeletal head and neck Overall: cervical spine benign 08/21/2012 None Full Exam - General 1994 Neurologic gait Overall: no ataxia, no unsteadiness 08/21/2012 None Full Exam - General 1994 Neurologic cranial nerves Overall: crainial nerves 2 - 12 grossly intact 08/21/2012 None Full Exam - General 1994 Psychiatric orientation/consciousness Overall: oriented to person, place and time 08/21/2012 None Full Exam - General 1994 Constitutional general appearance Overall: well developed 08/21/2012 None Full Exam - General 1994 Constitutional general appearance Overall: in no acute distress 08/21/2012 None Full Exam - General 1994 Constitutional general appearance Overall: well nourished 08/21/2012 None Full Exam - General 1994 Eyes pupils and irises Overall: pupils equal, round, reactive to light and accomodation 08/21/2012 None Full Exam - General 1994 Ears/Nose/Throat otoscopic exam Overall: external auditory canals clear 08/21/2012 None Full Exam - General 1995 Ears/Nose/Throat otoscopic exam Overall: tympanic membranes clear 08/21/2012 None Full Exam - General 1995 Ears/Nose/Throat lips/teeth/gingiva Overall: benign lips 08/21/2012 None Full Exam - General 1994 Constitutional general appearance Overall: well developed 06/28/2012 None Full Exam - General 1994 Constitutional general appearance Overall: in no acute distress 06/28/2012 None Full Exam - General 1994 Constitutional general appearance Overall: well nourished 06/28/2012 None Full Exam - General 1994 Eyes pupils and irises Overall: pupils equal, round, reactive to light and accomodation 06/28/2012 None Full Exam - General 1994 Ears/Nose/Throat otoscopic exam Overall: external auditory canals clear 06/28/2012 None Full Exam - General 1994 Ears/Nose/Throat otoscopic exam Overall: tympanic membranes clear 06/28/2012 None Full Exam - General 1994 Ears/Nose/Throat lips/teeth/gingiva Overall: benign lips 06/28/2012 None Full Exam - General 1994 Ears/Nose/Throat lips/teeth/gingiva Overall: no masses 06/28/2012 None Full Exam - General 1994 Ears/Nose/Throat oral cavity/pharynx/larynx Overall: oral mucosa clear 06/28/2012 None Full Exam - General 1995 Ears/Nose/Throat oral cavity/pharynx/larynx Overall: oropharyngeal mucosa clear 06/28/2012 None Full Exam - General 1994 Respiratory auscultation Overall: breath sounds clear bilaterally 06/28/2012 None Full Exam - General 1994 Respiratory respiratory effort/rhythm Overall: no retractions 06/28/2012 None Full Exam - General 1994 Respiratory respiratory effort/rhythm Overall: normal rate 06/28/2012 None Full Exam - General 1994 Cardiovascular auscultation of heart Overall: regular rate 06/28/2012 None Full Exam - General 1995 Cardiovascular auscultation of heart Systolic murmur: mechanical 06/28/2012 None Full Exam - General 1995 Abdomen abdominal exam Overall: no tenderness 06/28/2012 None Full Exam - General 1995 Abdomen abdominal exam Overall: normal bowel sounds 06/28/2012 None Full Exam - General 1995 Musculoskeletal head and neck Overall: head atraumatic 06/28/2012 None Full Exam - General 1995 Musculoskeletal head and neck Overall: TMJ benign 06/28/2012 None Full Exam - General 1995 Musculoskeletal head and neck Overall: cervical spine benign 06/28/2012 None Full Exam - General 1995 Neurologic gait Overall: no ataxia, no unsteadiness 06/28/2012 None Full Exam - General 1995 Neurologic cranial nerves Overall: crainial nerves 2 - 12 grossly intact 06/28/2012 None Full Exam - General 1994 Psychiatric orientation/consciousness Overall: oriented to person, place and time 06/28/2012 None Full Exam - General 1994 Psychiatric mood and affect Overall: normal mood and affect 06/28/2012 None Full Exam - General 1994 Musculoskeletal spine, ribs and pelvis Sacroiliac joints: tender left sacroiliac joint 06/28/2012 None Full Exam - General 1994 Constitutional general appearance Overall: well developed 05/21/2012 None Full Exam - General 1994 Constitutional general appearance Overall: in no acute distress 05/21/2012 None Full Exam - General 1995 Constitutional general appearance Overall: well nourished 05/21/2012 None Full Exam - General 1994 Eyes pupils and irises Overall: pupils equal, round, reactive to light and accomodation 05/21/2012 None Full Exam - General 1994 Ears/Nose/Throat otoscopic exam Overall: external auditory canals clear 05/21/2012 None Full Exam - General 1995 Ears/Nose/Throat otoscopic exam Overall: tympanic membranes clear 05/21/2012 None Full Exam - General 1995 Ears/Nose/Throat lips/teeth/gingiva Overall: benign lips 05/21/2012 None Full Exam - General 1995 Ears/Nose/Throat lips/teeth/gingiva Overall: no masses 05/21/2012 None Full Exam - General 1995 Ears/Nose/Throat oral cavity/pharynx/larynx Overall: oral mucosa clear 05/21/2012 None Full Exam - General 1995 Ears/Nose/Throat oral cavity/pharynx/larynx Overall: oropharyngeal mucosa clear 05/21/2012 None Full Exam - General 1995 Respiratory auscultation Overall: breath sounds clear bilaterally 05/21/2012 None Full Exam - General 1995 Respiratory respiratory effort/rhythm Overall: no retractions 05/21/2012 None Full Exam - General 1995 Respiratory respiratory effort/rhythm Overall: normal rate 05/21/2012 None Full Exam - General 1995 Cardiovascular auscultation of heart Overall: regular rate 05/21/2012 None Full Exam - General 1994 Cardiovascular auscultation of heart Systolic murmur: mechanical 05/21/2012 None Full Exam - General 1995 Abdomen abdominal exam Overall: no tenderness 05/21/2012 None Full Exam - General 1995 Abdomen abdominal exam Overall: normal bowel sounds 05/21/2012 None Full Exam - General 1995 Musculoskeletal head and neck Overall: head atraumatic 05/21/2012 None Full Exam - General 1994 Musculoskeletal head and neck Overall: TMJ benign 05/21/2012 None Full Exam - General 1994 Musculoskeletal head and neck Overall: cervical spine benign 05/21/2012 None Full Exam - General 1994 Neurologic gait Overall: no ataxia, no unsteadiness 05/21/2012 None Full Exam - General 1994 Neurologic cranial nerves Overall: crainial nerves 2 - 12 grossly intact 05/21/2012 None Full Exam - General 1994 Psychiatric orientation/consciousness Overall: oriented to person, place and time 05/21/2012 None Full Exam - General 1994 Psychiatric mood and affect Overall: normal mood and affect 05/21/2012 None Full Exam - General 1994 Constitutional general appearance Overall: well developed 04/26/2012 None Full Exam - General 1994 Constitutional general appearance Overall: in no acute distress 04/26/2012 None Full Exam - General 1994 Constitutional general appearance Overall: well nourished 04/26/2012 None Full Exam - General 1994 Eyes pupils and irises Overall: pupils equal, round, reactive to light and accomodation 04/26/2012 None Full Exam - General 1994 Ears/Nose/Throat otoscopic exam Overall: external auditory canals clear 04/26/2012 None Full Exam - General 1994 Ears/Nose/Throat otoscopic exam Overall: tympanic membranes clear 04/26/2012 None Full Exam - General 1994 Ears/Nose/Throat lips/teeth/gingiva Overall: benign lips 04/26/2012 None Full Exam - General 1994 Ears/Nose/Throat lips/teeth/gingiva Overall: no masses 04/26/2012 None Full Exam - General 1994 Ears/Nose/Throat oral cavity/pharynx/larynx Overall: oral mucosa clear 04/26/2012 None Full Exam - General 1994 Ears/Nose/Throat oral cavity/pharynx/larynx Overall: oropharyngeal mucosa clear 04/26/2012 None Full Exam - General 1994 Respiratory auscultation Overall: breath sounds clear bilaterally 04/26/2012 None Full Exam - General 1994 Respiratory respiratory effort/rhythm Overall: no retractions 04/26/2012 None Full Exam - General 1994 Respiratory respiratory effort/rhythm Overall: normal rate 04/26/2012 None Full Exam - General 1994 Cardiovascular auscultation of heart Overall: regular rate 04/26/2012 None Full Exam - General 1994 Cardiovascular auscultation of heart Systolic murmur: mechanical 04/26/2012 None Full Exam - General 1994 Abdomen abdominal exam Overall: no tenderness 04/26/2012 None Full Exam - General 1994 Abdomen abdominal exam Overall: normal bowel sounds 04/26/2012 None Full Exam - General 1994 Psychiatric orientation/consciousness Overall: oriented to person, place and time 04/26/2012 None Full Exam - General 1994 Psychiatric mood and affect Overall: normal mood and affect 04/26/2012 None Full Exam - General 1994 Musculoskeletal spine, ribs and pelvis Overall: spine benign 04/26/2012 None Full Exam - General 1994 Neurologic cranial nerves Overall: crainial nerves 2 - 12 grossly intact 04/26/2012 None Full Exam - General 1994 Neurologic sensation Touch: (specify location of deficit): decreased 04/26/2012 rig ht lower extremity Full Exam - General 1994 Neurologic sensation Touch: (specify location of deficit): light touch _ 04/26/2012 None Full Exam - General 1994 Musculoskeletal lower extremity Inspection - thigh: normal appearance 04/26/2012 None Full Exam - General 1994 Musculoskeletal lower extremity Inspection - lower leg: normal appearance 04/26/2012 decreased strength in right lower leg Full Exam - General 1994 Constitutional general appearance Overall: well nourished 02/14/2012 None Full Exam - General 1994 Constitutional general appearance Overall: well developed 02/14/2012 None Full Exam - General 1994 Constitutional general appearance Overall: in no acute distress 02/14/2012 None Full Exam - General 1994 Eyes pupils and irises Overall: pupils equal, round, reactive to light and accomodation 02/14/2012 None Full Exam - General 1994 Ears/Nose/Throat otoscopic exam Overall: external auditory canals clear 02/14/2012 None Full Exam - General 1994 Ears/Nose/Throat otoscopic exam Overall: tympanic membranes clear 02/14/2012 None Full Exam - General 1994 Ears/Nose/Throat lips/teeth/gingiva Overall: benign lips 02/14/2012 None Full Exam - General 1994 Ears/Nose/Throat lips/teeth/gingiva Overall: no masses 02/14/2012 None Full Exam - General 1994 Ears/Nose/Throat oral cavity/pharynx/larynx Overall: oral mucosa clear 02/14/2012 None Full Exam - General 1994 Ears/Nose/Throat oral cavity/pharynx/larynx Overall: oropharyngeal mucosa clear 02/14/2012 None Full Exam - General 1994 Respiratory auscultation Overall: breath sounds clear bilaterally 02/14/2012 None Full Exam - General 1994 Respiratory respiratory effort/rhythm Overall: no retractions 02/14/2012 None Full Exam - General 1994 Respiratory respiratory effort/rhythm Overall: normal rate 02/14/2012 None Full Exam - General 1994 Cardiovascular auscultation of heart Overall: regular rate 02/14/2012 None Full Exam - General 1994 Cardiovascular auscultation of heart Systolic murmur: mechanical 02/14/2012 None Full Exam - General 1994 Abdomen abdominal exam Overall: no tenderness 02/14/2012 None Full Exam - General 1994 Abdomen abdominal exam Overall: normal bowel sounds 02/14/2012 None Full Exam - General 1994 Musculoskeletal head and neck Overall: head atraumatic 02/14/2012 None Full Exam - General 1994 Musculoskeletal head and neck Overall: TMJ benign 02/14/2012 None Full Exam - General 1994 Musculoskeletal head and neck Overall: cervical spine benign 02/14/2012 None Full Exam - General 1994 Neurologic gait Overall: no ataxia, no unsteadiness 02/14/2012 None Full Exam - General 1994 Neurologic cranial nerves Overall: crainial nerves 2 - 12 grossly intact 02/14/2012 None Full Exam - General 1994 Psychiatric orientation/consciousness Overall: oriented to person, place and time 02/14/2012 None Full Exam - General 1994 Psychiatric mood and affect Overall: normal mood and affect 02/14/2012 None Full Exam - General 1994 Neurologic cranial nerves Overall: crainial nerves 2 - 12 grossly intact 10/11/2011 None Full Exam - General 1994 Psychiatric orientation/consciousness Overall: oriented to person, place and time 10/11/2011 None Full Exam - General 1994 Psychiatric mood and affect Overall: normal mood and affect 10/11/2011 None Full Exam - General 1994 Eyes pupils and irises Overall: pupils equal, round, reactive to light and accomodation 10/11/2011 None Full Exam - General 1995 Ears/Nose/Throat otoscopic exam Overall: external auditory canals clear 10/11/2011 None Full Exam - General 1995 Ears/Nose/Throat otoscopic exam Overall: tympanic membranes clear 10/11/2011 None Full Exam - General 1995 Ears/Nose/Throat lips/teeth/gingiva Overall: benign lips 10/11/2011 None Full Exam - General 1995 Ears/Nose/Throat lips/teeth/gingiva Overall: no masses 10/11/2011 None Full Exam - General 1994 Ears/Nose/Throat oral cavity/pharynx/larynx Overall: oral mucosa clear 10/11/2011 None Full Exam - General 1994 Ears/Nose/Throat oral cavity/pharynx/larynx Overall: oropharyngeal mucosa clear 10/11/2011 None Full Exam - General 1994 Respiratory auscultation Overall: breath sounds clear bilaterally 10/11/2011 None Full Exam - General 1994 Respiratory respiratory effort/rhythm Overall: no retractions 10/11/2011 None Full Exam - General 1994 Respiratory respiratory effort/rhythm Overall: normal rate 10/11/2011 None Full Exam - General 1994 Constitutional general appearance Overall: well nourished 10/11/2011 None Full Exam - General 1994 Constitutional general appearance Overall: well developed 10/11/2011 None Full Exam - General 1994 Constitutional general appearance Overall: in no acute distress 10/11/2011 None Full Exam - General 1994 Abdomen abdominal exam Overall: no tenderness 10/11/2011 None Full Exam - General 1994 Abdomen abdominal exam Overall: normal bowel sounds 10/11/2011 None Full Exam - General 1994 Musculoskeletal head and neck Overall: head atraumatic 10/11/2011 None Full Exam - General 1994 Musculoskeletal head and neck Overall: TMJ benign 10/11/2011 None Full Exam - General 1994 Musculoskeletal head and neck Overall: cervical spine benign 10/11/2011 None Full Exam - General 1994 Neurologic gait Overall: no ataxia, no unsteadiness 10/11/2011 None Full Exam - General 1994 Cardiovascular auscultation of heart Overall: regular rate 10/11/2011 None Full Exam - General 1994 Cardiovascular auscultation of heart Systolic murmur: mechanical 10/11/2011 None Full Exam - General 1995 Constitutional general appearance Overall: well developed 07/12/2011 None Full Exam - General 1994 Constitutional general appearance Overall: in no acute distress 07/12/2011 None Full Exam - General 1994 Constitutional general appearance Overall: well nourished 07/12/2011 None Full Exam - General 1994 Respiratory auscultation Overall: breath sounds clear bilaterally 07/12/2011 None Full Exam - General 1994 Respiratory respiratory effort/rhythm Overall: no retractions 07/12/2011 None Full Exam - General 1994 Respiratory respiratory effort/rhythm Overall: normal rate 07/12/2011 None Full Exam - General 1994 Cardiovascular auscultation of heart Overall: regular rate 07/12/2011 None Full Exam - General 1994 Musculoskeletal lower extremity Inspection - knee: swelling 07/12/2011 None Full Exam - General 1994 Musculoskeletal lower extremity Inspection - knee: presence of a scar 07/12/2011 None Full Exam - General 1994 Musculoskeletal lower extremity Palpation - knee: positive bulge sign 07/12/2011 None Full Exam - General 1994 Musculoskeletal lower extremity Palpation - knee: positive ballottement sign 07/12/2011 None Full Exam - General 1994 Musculoskeletal lower extremity Palpation - knee: small effusion 07/12/2011 None Full Exam - General 1994 Musculoskeletal lower extremity ROM - knee: decreased flexion 07/12/2011 None Full Exam - General 1994 Psychiatric orientation/consciousness Overall: oriented to person, place and time 07/12/2011 None Full Exam - General 1994 Psychiatric mood and affect Overall: normal mood and affect 07/12/2011 None Full Exam - General 1994 Ears/Nose/Throat oral cavity/pharynx/larynx Overall: oropharyngeal mucosa clear 07/12/2011 None Full Exam - General 1994 Ears/Nose/Throat oral cavity/pharynx/larynx Overall: no masses 07/12/2011 None Full Exam - General 1995 Ears/Nose/Throat oral cavity/pharynx/larynx Overall: oral mucosa clear 07/12/2011 None Full Exam - General 1994 Abdomen abdominal exam Overall: no tenderness 07/12/2011 None Full Exam - General 1994 Abdomen abdominal exam Overall: normal bowel sounds 07/12/2011 None Full Exam - General 1994 Integument inspection of skin Overall: no rash, lesions 07/12/2011 None Full Exam - General 1994 Musculoskeletal lower extremity Inspection - knee: presence of a scar 05/11/2011 None Full Exam - General 1994 Musculoskeletal lower extremity Inspection - knee: swelling 05/11/2011 None Full Exam - General 1995 Musculoskeletal lower extremity Palpation - knee: positive bulge sign 05/11/2011 None Full Exam - General 1995 Musculoskeletal lower extremity Palpation - knee: positive ballottement sign 05/11/2011 None Full Exam - General 1995 Musculoskeletal lower extremity Palpation - knee: small effusion 05/11/2011 None Full Exam - General 1995 Musculoskeletal lower extremity ROM - knee: decreased flexion 05/11/2011 None Full Exam - General 1995 Constitutional general appearance Overall: well nourished 05/11/2011 None Full Exam - General 1994 Constitutional general appearance Overall: well developed 05/11/2011 None Full Exam - General 1994 Constitutional general appearance Overall: in no acute distress 05/11/2011 None Full Exam - General 1994 Respiratory respiratory effort/rhythm Overall: normal rate 05/11/2011 None Full Exam - General 1994 Respiratory respiratory effort/rhythm Overall: no retractions 05/11/2011 None Full Exam - General 1994 Respiratory auscultation Overall: breath sounds clear bilaterally 05/11/2011 None Full Exam - General 1994 Cardiovascular auscultation of heart Overall: regular rate 05/11/2011 None Full Exam - General 1994 Psychiatric orientation/consciousness Overall: oriented to person, place and time 05/11/2011 None Full Exam - General 1994 Psychiatric mood and affect Overall: normal mood and affect 05/11/2011 None Full Exam - General 1994 Constitutional general appearance Overall: well nourished 04/12/2011 None Full Exam - General 1994 Constitutional general appearance Overall: well developed 04/12/2011 None Full Exam - General 1994 Constitutional general appearance Overall: in no acute distress 04/12/2011 None Full Exam - General 1994 Eyes pupils and irises Overall: pupils equal, round, reactive to light and accomodation 04/12/2011 None Full Exam - General 1994 Musculoskeletal head and neck Overall: TMJ benign 04/12/2011 None Full Exam - General 1994 Musculoskeletal head and neck Overall: cervical spine benign 04/12/2011 None Full Exam - General 1994 Neurologic gait Overall: no ataxia, no unsteadiness 04/12/2011 None Full Exam - General 1994 Neurologic cranial nerves Overall: crainial nerves 2 - 12 grossly intact 04/12/2011 None Full Exam - General 1994 Psychiatric orientation/consciousness Overall: oriented to person, place and time 04/12/2011 None Full Exam - General 1994 Psychiatric mood and affect Overall: normal mood and affect 04/12/2011 None Full Exam - General 1994 Ears/Nose/Throat otoscopic exam Overall: external auditory canals clear 04/12/2011 None Full Exam - General 1994 Ears/Nose/Throat otoscopic exam Overall: tympanic membranes clear 04/12/2011 None Full Exam - General 1994 Ears/Nose/Throat lips/teeth/gingiva Overall: benign lips 04/12/2011 None Full Exam - General 1994 Ears/Nose/Throat lips/teeth/gingiva Overall: no masses 04/12/2011 None Full Exam - General 1994 Ears/Nose/Throat oral cavity/pharynx/larynx Overall: oral mucosa clear 04/12/2011 None Full Exam - General 1994 Ears/Nose/Throat oral cavity/pharynx/larynx Overall: oropharyngeal mucosa clear 04/12/2011 None Full Exam - General 1994 Respiratory auscultation Overall: breath sounds clear bilaterally 04/12/2011 None Full Exam - General 1994 Respiratory respiratory effort/rhythm Overall: no retractions 04/12/2011 None Full Exam - General 1994 Respiratory respiratory effort/rhythm Overall: normal rate 04/12/2011 None Full Exam - General 1994 Cardiovascular auscultation of heart Overall: regular rate 04/12/2011 None Full Exam - General 1994 Cardiovascular auscultation of heart Systolic murmur: mechanical 04/12/2011 None Full Exam - General 1994 Abdomen abdominal exam Overall: no tenderness 04/12/2011 None Full Exam - General 1994 Abdomen abdominal exam Overall: normal bowel sounds 04/12/2011 None Full Exam - General 1994 Musculoskeletal head and neck Overall: head atraumatic 04/12/2011 None Full Exam - General 1994 Constitutional general appearance Overall: well nourished 01/11/2011 None Full Exam - General 1994 Constitutional general appearance Overall: well developed 01/11/2011 None Full Exam - General 1994 Constitutional general appearance Overall: in no acute distress 01/11/2011 None Full Exam - General 1994 Eyes pupils and irises Overall: pupils equal, round, reactive to light and accomodation 01/11/2011 None Full Exam - General 1994 Ears/Nose/Throat otoscopic exam Overall: tympanic membranes clear 01/11/2011 None Full Exam - General 1994 Ears/Nose/Throat otoscopic exam Overall: external auditory canals clear 01/11/2011 None Full Exam - General 1994 Ears/Nose/Throat lips/teeth/gingiva Overall: no masses 01/11/2011 None Full Exam - General 1994 Ears/Nose/Throat lips/teeth/gingiva Overall: benign lips 01/11/2011 None Full Exam - General 1994 Ears/Nose/Throat oral cavity/pharynx/larynx Overall: oral mucosa clear 01/11/2011 None Full Exam - General 1994 Ears/Nose/Throat oral cavity/pharynx/larynx Overall: oropharyngeal mucosa clear 01/11/2011 None Full Exam - General 1994 Respiratory auscultation Overall: breath sounds clear bilaterally 01/11/2011 None Full Exam - General 1994 Respiratory respiratory effort/rhythm Overall: normal rate 01/11/2011 None Full Exam - General 1994 Respiratory respiratory effort/rhythm Overall: no retractions 01/11/2011 None Full Exam - General 1994 Cardiovascular auscultation of heart Overall: regular rate 01/11/2011 None Full Exam - General 1994 Cardiovascular auscultation of heart Systolic murmur: mechanical 01/11/2011 None Full Exam - General 1994 Abdomen abdominal exam Overall: no tenderness 01/11/2011 None Full Exam - General 1994 Abdomen abdominal exam Overall: normal bowel sounds 01/11/2011 None Full Exam - General 1994 Musculoskeletal head and neck Overall: cervical spine benign 01/11/2011 None Full Exam - General 1994 Musculoskeletal head and neck Overall: head atraumatic 01/11/2011 None Full Exam - General 1994 Musculoskeletal head and neck Overall: TMJ benign 01/11/2011 None Full Exam - General 1994 Neurologic gait Overall: no ataxia, no unsteadiness 01/11/2011 None Full Exam - General 1994 Neurologic cranial nerves Overall: crainial nerves 2 - 12 grossly intact 01/11/2011 None Full Exam - General 1994 Psychiatric orientation/consciousness Overall: oriented to person, place and time 01/11/2011 None Full Exam - General 1994 Psychiatric mood and affect Overall: normal mood and affect 01/11/2011 None Procedures Procedure Codes Date PPPS, SUBSEQ VISIT CPT- 4: G0439 08/11/2017 ADMIN INFLUENZA VIRU S VAC CPT-4: G0008 01/25/2017 FLU VACC PRSV FREE I NC ANTIG CPT-4: 35353 01/25/2017 PPPS, SUBSEQ VISIT CPT- 4: G0439 08/05/2016 ADMIN PNEUMOCOCCAL V ACCINE SNOMED CT: 74752659 CPT-4: G0009 04/26/2016 Pneumococcal Polysac charide Vaccine, 23-Valent, Ad Formatting Model/CDA Sections, Assigned to/Raquel Shelley CPT-4: [id number] 04/26/2016 ADMIN INFLUENZA VIRU S VAC CPT-4: G0008 01/27/2016 FLU VACC 4 JULISA 3 YRS PLUS IM Formatting Model/CDA Sections, Assigned toRaquel Ruvalcaba SNOMED CT: 28545316 CPT-4: 37892Jkmhbiw 01/27/2016 ADMIN INFLUENZA VIRU S VAC Formatting Model/CDA Sections, Assigned to CPT-4: [id number] 01/20/2015 FLU VACC 4 JULISA 3 YRS PLUS IM SNOMED CT: 76734465 CPT-4: 36232 01/20/2015 DRAIN/INJECT JOINT/B URSA CPT-4: 88225 04/01/2014 TRIAMCINOLONE ACET I [place] NOS CPT-4: J3301 04/01/2014 URINALYSIS NONAUTO W /O SCOPE CPT-4: 90517 04/01/2014 ADMIN INFLUENZA VIRU S VAC Assigned to/Raquel Shelley CPT-4: C8274Uscrxfy 01/13/2014 FLU VAC NO PRSV 4 VA L 3 YRS+ Assigned to/Raquel Shelley CPT-4: 62179Sqroaot 01/13/2014 PRESCRIP TRANSMIT A ERX SY CPT-4: G8553 03/26/2013 ADMIN INFLUENZA VIRU S VAC CPT-4: G0008 01/14/2013 FLULAVAL VACC, 3 YRS & >, IM CPT-4: Q2036 01/14/2013 DESTRUCT PREMALG LESION CPT-4: 76643 12/25/2012 PRESCRIP TRANSMIT A ERX SY CPT-4: G8553 08/21/2012 DRAIN/INJECT JOINT/B URSA CPT-4: 68803 06/28/2012 TRIAMCINOLONE ACET I [place] NOS CPT-4: J3301 06/28/2012 ADMIN INFLUENZA VIRU S VAC CPT-4: G0008 02/14/2012 FLULAVAL VACC, 3 YRS & >, IM CPT-4: Q2036 02/14/2012 URINALYSIS NONAUTO W /O SCOPE CPT-4: 06827 07/12/2011 PRESCRIP TRANSMIT A ERX SY CPT-4: G8553 07/12/2011 ADMIN INFLUENZA VIRU S VAC CPT-4: G0008 01/11/2011 FLULAVAL VACC, 3 YRS & >, IM CPT-4: Q2036 01/11/2011 Vital Signs Date Vital 07/25/2018 Blood Pressure 1: 126/70 Code: 8480-6 BMI: 21.1 Code: 58880-1 Heart Rate 1: 57 bpm Height: 5'7" SpO2: 99% Weight: 135 lbs 07/05/2018 Blood Pressure 1: 124/60 Code: 8480-6 BMI: 21.3 Code: 79002-3 Heart Rate 1: 68 bpm Height: 5'7" SpO2: 97% Weight: 135 lbs 14 o z 06/26/2018 Blood Pressure 1: 128/76 Code: 8480-6 BMI: 21.6 Code: 90766-1 Heart Rate 1: 82 bpm Height: 5'7" SpO2: 95% Weight: 138 lbs 03/27/2018 Blood Pressure 1: 122/70 Code: 8480-6 BMI: 21.1 Code: 46745-3 Heart Rate 1: 76 bpm Height: 5'7" SpO2: 96% Weight: 135 lbs 02/14/2018 Blood Pressure 1: 102/58 Code: 8480-6 BMI: 21.5 Code: 73997-5 Heart Rate 1: 78 bpm Height: 5'7" SpO2: 98% Weight: 137 lbs 11/08/2017 Blood Pressure 1: 132/68 Code: 8480-6 BMI: 21.9 Code: 14503-8 Heart Rate 1: 66 bpm Height: 5'7" SpO2: 98% Weight: 140 lbs 08/11/2017 Blood Pressure 1: 118/68 Code: 8480-6 BMI: 22.2 Code: 22881-9 Heart Rate 1: 63 bpm Height: 5'7" SpO2: 98% Waist Measure (cm): 61 cm Weight: 142 lbs 08/09/2017 Blood Pressure 1: 118/68 Code: 8480-6 BMI: 22.4 Code: 32959-3 Heart Rate 1: 60 bpm Height: 5'7" SpO2: 98% Weight: 143 lbs 04/11/2017 Blood Pressure 1: 122/68 Code: 8480-6 BMI: 23.0 Code: 52221-3 Heart Rate 1: 65 bpm Height: 5'7" SpO2: 98% Weight: 147 lbs 01/25/2017 Blood Pressure 1: 136/58 Code: 8480-6 BMI: 23.0 Code: 11210-4 Heart Rate 1: 63 bpm Height: 5'7" SpO2: 96% Weight: 147 lbs 12/21/2016 Blood Pressure 1: 112/52 Code: 8480-6 BMI: 23.0 Code: 84620-9 Heart Rate 1: 73 bpm Height: 5'7" SpO2: 97% Weight: 147 lbs 12/01/2016 Blood Pressure 1: 128/76 Code: 8480-6 BMI: 22.7 Code: 36503-1 Heart Rate 1: 67 bpm Height: 5'7" SpO2: 95% Weight: 145 lbs 10/25/2016 Blood Pressure 1: 128/70 Code: 8480-6 BMI: 23.5 Code: 70570-9 Heart Rate 1: 62 bpm Height: 5'7" SpO2: 96% Weight: 150 lbs 08/05/2016 Blood Pressure 1: 110/58 Code: 8480-6 BMI: 23.3 Code: 04122-2 Heart Rate 1: 65 bpm Height: 5'7" SpO2: 95% Waist Measure (cm): 102 cm Weight: 149 lbs 07/26/2016 Blood Pressure 1: 112/64 Code: 8480-6 BMI: 23.3 Code: 69298-7 Heart Rate 1: 62 bpm Height: 5'7" SpO2: 95% Weight: 149 lbs 04/26/2016 Blood Pressure 1: 124/68 Code: 8480-6 BMI: 23.8 Code: 73122-4 Heart Rate 1: 64 bpm Height: 5'7" SpO2: 98% Weight: 152 lbs 01/27/2016 Blood Pressure 1: 118/70 Code: 8480-6 BMI: 24.0 Code: 99260-9 Heart Rate 1: 64 bpm Height: 5'7" SpO2: 97% Weight: 153 lbs 10/27/2015 Blood Pressure 1: 114/60 Code: 8480-6 BMI: 23.7 Code: 89483-4 Heart Rate 1: 61 bpm Height: 5'7" SpO2: 97% Weight: 151 lbs 8 oz 06/30/2015 Blood Pressure 1: 102/60 Code: 8480-6 BMI: 23.9 Code: 80490-5 Heart Rate 1: 70 bpm Height: 5'7" SpO2: 97% Weight: 152 lbs 8 oz 03/31/2015 Blood Pressure 1: 122/64 Code: 8480-6 BMI: 23.2 Code: 06851-3 Heart Rate 1: 64 bpm Height: 5'7" SpO2: 97% Weight: 148 lbs 03/17/2015 Blood Pressure 1: 142/76 Code: 8480-6 BMI: 23.5 Code: 25072-1 Heart Rate 1: 64 bpm Height: 5'7" SpO2: 98% Weight: 150 lbs 01/20/2015 Blood Pressure 1: 128/64 Code: 8480-6 BMI: 22.9 Code: 41339-3 Heart Rate 1: 72 bpm Height: 5'7" SpO2: 96% Weight: 146 lbs 12/15/2014 Blood Pressure 1: 110/60 Code: 8480-6 BMI: 21.9 Code: 11461-6 Heart Rate 1: 88 bpm Height: 5'7" SpO2: 96% Weight: 140 lbs 09/30/2014 Blood Pressure 1: 146/70 Code: 8480-6 BMI: 23.5 Code: 86946-4 Heart Rate 1: 53 bpm Height: 5'7" SpO2: 94% Weight: 150 lbs 07/01/2014 Blood Pressure 1: 140/62 Code: 8480-6 BMI: 23.6 Code: 10464-6 Heart Rate 1: 70 bpm Height: 5'7" Weight: 151 lbs 04/01/2014 Blood Pressure 1: 118/78 Code: 8480-6 BMI: 24.5 Code: 22011-6 Heart Rate 1: 56 bpm Height: 5'7" Weight: 156 lbs 8 oz 01/13/2014 Blood Pressure 1: 138/64 Code: 8480-6 BMI: 24.4 Code: 19199-2 Heart Rate 1: 54 bpm Height: 5'7" SpO2: 96% Weight: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 01/13/2014 None muscle weakness Quality lower extremities 01/13/2014 None muscle weakness Quality symmetric 01/13/2014 None muscle weakness Limitation on Activities moderately limits activities 01/13/2014 None muscle weakness Exacerbating Factors repetitive activity 01/13/2014 None muscle weakness Pertinent Findings muscle tenderness 01/13/2014 None muscle weakness Pertinent Findings pain 01/13/2014 None muscle weakness Pertinent Findings stiffness 01/13/2014 in knee on right hypertension Blood Pressure Values not checking blood pressure at home 01/13/2014 None hypertension Pertinent Findings Denies dizziness 01/13/2014 None hypertension Pertinent Findings Denies dyspnea 01/13/2014 None hypertension Quality chr onic 10/15/2013 None hypertension Onset and Resolution ongoing 10/15/2013 None hypertension Blood Pressure Values patient checking blood pressure at home - did not bring in readings 10/15/2013 None muscle weakness Quality both sides 10/15/2013 None muscle weakness Quality lower extremities 10/15/2013 None muscle weakness Quality symmetric 10/15/2013 None muscle weakness Limitation on Activities moderately limits activities 10/15/2013 --Improved muscle weakness Pertinent Findings muscle tenderness 10/15/2013 --Improved muscle weakness Pertinent Findings pain 10/15/2013 --Improved muscle weakness Pertinent Findings stiffness 10/15/2013 in knee on right --Improv ed muscle weakness Location in the girdle muscles 10/15/2013 None muscle weakness Location in the distal muscles 10/15/2013 None muscle weakness Exacerbating Factors repetitive activity 10/15/2013 --Resolved hypertension Severity mi ld 10/15/2013 None muscle weakness Location diffusely 09/11/2013 but worst in his right la teral lower leg - severe shooting pain down his right lateral leg from knee to ankle. He has been having cramps in his feet at night that causes discomfort and difficultly w alking. muscle weakness Onset and Resolution sudden in onset 09/11/2013 started about a week ago muscle weakness Pertinent Findings Denies anxiety 09/11/2013 None muscle weakness Pertinent Findings Denies back pain 09/11/2013 None muscle weakness Pertinent Findings Denies lethargy 09/11/2013 None muscle weakness Pertinent Findings muscle tenderness 09/11/2013 None muscle weakness Pertinent Findings pain 09/11/2013 None muscle weakness Pertinent Findings stiffness 09/11/2013 in knee on right muscle weakness Location in the distal muscles 09/11/2013 None muscle weakness Location in the girdle muscles 09/11/2013 None muscle weakness Quality both sides 09/11/2013 None muscle weakness Quality lower extremities 09/11/2013 None muscle weakness Quality symmetric 09/11/2013 None muscle weakness Limitation on Activities moderately limits activities 09/11/2013 None muscle weakness Triggers no known associated factors 09/11/2013 None muscle weakness Exacerbating Factors repetitive activity 09/11/2013 None gastroesophageal reflux Quality acute 08/22/2013 None gastroesophageal reflux Onset of Symptom 2 weeks ago 08/22/2013 None gastroesophageal reflux Severity moderate 08/22/2013 None gastroesophageal reflux Frequency of Episodes increasing 08/22/2013 st ates he is on omeprazole but stomach is making a lot of noise now gastroesophageal reflux Exacerbating Factors eating 08/22/2013 None gastroesophageal reflux Pertinent Findings emesis 08/22/2013 None gastroesophageal reflux Pertinent Findings Denies heartburn 08/22/2013 None gastroesophageal reflux Pertinent Findings bloating 08/22/2013 None cellulitis Quality impro ving 08/22/2013 None cellulitis Location on t he right cheek 08/22/2013 forehead gastroesophageal reflux Diet solids 08/22/2013 None gastroesophageal reflux Significant Medications antacids 08/22/2013 on o meprazole gastroesophageal reflux Triggers meals 08/22/2013 None gastroesophageal reflux Alleviating Factor s proton pump inhibitor 08/22/2013 omeprazole cellulitis Quality impro ving 08/08/2013 None cellulitis Location on t he face 08/08/2013 None cellulitis Limitation on Activities does not limit activities 08/08/2013 None cellulitis Frequency of Episodes decreasing 08/08/2013 None cellulitis Significant Medical Conditions previous cellulitis 08/08/2013 None cellulitis Alleviating Factors prescription medication 08/08/2013 None cellulitis Pertinent Findings bleeding 08/08/2013 None skin lesion Quality scab bed 07/29/2013 None skin lesion Quality enla rging 07/29/2013 None skin lesion Quality oozi ng 07/29/2013 None skin lesion Location on the forehead 07/29/2013 right mandaen skin lesion Onset and Resolution ongoing 07/29/2013 None skin lesion Onset of Symptom 1 months ago 07/29/2013 None skin lesion Severity mod erate 07/29/2013 None skin lesion Frequency of Episodes increasing 07/29/2013 None skin lesion Triggers act ivity 07/29/2013 using 5 FU skin lesion Exacerbating Factors medication 07/29/2013 None skin lesion Pertinent Findings Denies fever 07/29/2013 None hypertension Quality chr onic 06/25/2013 None hypertension Blood Pressure Values not checking blood pressure at home 06/25/2013 None hypertension Pertinent Findings Denies decreased energy 06/25/2013 None hypertension Pertinent Findings Denies dizziness 06/25/2013 None hypertension Pertinent Findings Denies dyspnea 06/25/2013 None hypertension Pertinent Findings edema 06/25/2013 None hypertension Onset and Resolution ongoing 06/25/2013 None hypertension Onset of Symptom during adulthood 06/25/2013 None hypertension Significant Medical Condition s cardiac disease 06/25/2013 None hypertension Significant Family History heart disease 06/25/2013 None hypertension Severity mi ld 06/25/2013 None cough Location in the th roat 03/26/2013 None cough Quality acute 03/26/2013 None cough Quality dry 03/26/2013 None cough Onset and Resolution sudden in onset 03/26/2013 None cough Onset of Symptom 3 days ago 03/26/2013 None cough Pertinent Findings Denies fever 03/26/2013 None cough Pertinent Findings Denies chest discomfort 03/26/2013 None cough Pertinent Findings nasal congestion 03/26/2013 None cough Pertinent Findings Denies sputum production 03/26/2013 None hypertension Quality chr onic 03/26/2013 None hypertension Quality sta ble 03/26/2013 None hypertension Onset and Resolution ongoing 03/26/2013 None hypertension Pertinent Findings Denies dizziness 03/26/2013 None hypertension Pertinent Findings Denies dyspnea 03/26/2013 None hypertension Pertinent Findings Denies edema 03/26/2013 None hypertension Pertinent Findings Denies palpitations 03/26/2013 None hypertension Pertinent Findings Denies orthostatic hypotension 03/26/2013 None hypertension Pertinent Findings Denies tachycardia 03/26/2013 None hypertension Blood Pressure Values not checking blood pressure at home 03/26/2013 None cough Triggers no known associated factors 03/26/2013 None cough Pertinent Findings Denies weakness 03/26/2013 None hypertension Triggers no known associated factors 03/26/2013 None changing lesion Location-Head/Neck on the right cheek 12/25/2012 states it has been treated twice previously but always comes back changing lesion Quality chronic 12/25/2012 None changing lesion Onset and Resolution ongoing 12/25/2012 None changing lesion Quality expanding 12/25/2012 None changing lesion Severity moderate 12/25/2012 None changing lesion Prior Treatments unresponsive to treatment 12/25/2012 None changing lesion Triggers no known triggers 12/25/2012 None muscle weakness Location in the distal muscles 11/20/2012 None muscle weakness Location in the girdle muscles 11/20/2012 None muscle weakness Quality both sides 11/20/2012 None muscle weakness Quality lower extremities 11/20/2012 None muscle weakness Quality symmetric 11/20/2012 None muscle weakness Quality improving 11/20/2012 Omid states the weakne ss has improved a little with physical therapy but the lack of smoothness with his walking is irritating. muscle weakness Onset of Symptom 3+ months ago 11/20/2012 None muscle weakness Limitation on Activities moderately limits activities 11/20/2012 None muscle weakness Triggers no known associated factors 11/20/2012 None muscle weakness Exacerbating Factors repetitive activity 11/20/2012 None hypertension Quality chr onic 08/21/2012 None hypertension Onset and Resolution ongoing 08/21/2012 None back pain Quality improv ing 08/21/2012 states physical therapy h elped a lot but has finished it hypertension Quality sta ble 08/21/2012 None hypertension Severity mi ld 08/21/2012 None hypertension Significant Medical Condition s cardiac disease 08/21/2012 None hypertension Triggers no known associated factors 08/21/2012 None hypertension Alleviating Factors diet changes 08/21/2012 None hypertension Alleviating Factors exercise 08/21/2012 None hypertension Alleviating Factors medication 08/21/2012 None hypertension Exacerbating Factors stress 08/21/2012 None hypertension Pertinent Findings Denies anxiety 08/21/2012 None hypertension Pertinent Findings Denies decreased energy 08/21/2012 None back pain Location in th e left lower back area 06/28/2012 None back pain Quality acute 06/28/2012 None back pain Onset and Resolution gradual in onset 06/28/2012 None back pain Limitation on Activities moderately limits activities 06/28/2012 None back pain Radiating down left leg 06/28/2012 None back pain Onset of Symptom 2 days ago 06/28/2012 None back pain Frequency of Episodes unchanged 06/28/2012 None back pain Alleviating Factors activity 06/28/2012 standing is better than s itting. states the pain goes down his left leg back pain Severity moder ate 06/28/2012 None back pain Pertinent Findings Denies chills 06/28/2012 None back pain Pertinent Findings Denies extremity numbness 06/28/2012 None back pain Pertinent Findings Denies extremity weakness 06/28/2012 None back pain Pertinent Findings Denies weakness 06/28/2012 None hypertension Quality chr onic 05/21/2012 None hypertension Quality sta ble 05/21/2012 None hypertension Onset and Resolution ongoing 05/21/2012 None hypertension Blood Pressure Values "white coat" (home SBP<129 / DBP<84) 05/21/2012 None hypertension Severity mi ld 05/21/2012 None hypertension Significant Medical Condition s cardiac disease 05/21/2012 None hypertension Triggers no known associated factors 05/21/2012 None hypertension Alleviating Factors diet changes 05/21/2012 None hypertension Alleviating Factors exercise 05/21/2012 None hypertension Alleviating Factors medication 05/21/2012 None hypertension Exacerbating Factors stress 05/21/2012 None hypertension Pertinent Findings Denies anxiety 05/21/2012 None hypertension Pertinent Findings Denies decreased energy 05/21/2012 None hypertension Pertinent Findings Denies muscle weakness 05/21/2012 None hypertension Pertinent Findings Denies nausea 05/21/2012 None weakness Onset and Resolution sudden in onset 04/26/2012 None weakness Pertinent Findings gait abnormality 04/26/2012 None weakness Pertinent Findings neck pain 04/26/2012 None weakness Limitation on Activities moderately limits activities 04/26/2012 None weakness Quality right-s ided 04/26/2012 lower leg weakness Triggers no kno wn associated factors 04/26/2012 recent falls weakness Onset of Symptom 1 days ago 04/26/2012 None weakness Pertinent Findings sensory changes 04/26/2012 None hypertension Quality sta ble 02/14/2012 None hypertension Onset and Resolution ongoing 02/14/2012 None hyperlipidemia Onset and Resolution ongoing 02/14/2012 None hypertension Quality chr onic 02/14/2012 None hypertension Blood Pressure Values "white coat" (home SBP<129 / DBP<84) 02/14/2012 None hypertension Severity mi ld 02/14/2012 None hypertension Significant Medical Condition s cardiac disease 02/14/2012 None hypertension Triggers no known associated factors 02/14/2012 None hypertension Alleviating Factors diet changes 02/14/2012 None hypertension Alleviating Factors exercise 02/14/2012 None hypertension Alleviating Factors medication 02/14/2012 None hypertension Exacerbating Factors stress 02/14/2012 None hypertension Pertinent Findings Denies anxiety 02/14/2012 None hypertension Pertinent Findings Denies decreased energy 02/14/2012 None hypertension Pertinent Findings Denies muscle weakness 02/14/2012 None hypertension Pertinent Findings Denies nausea 02/14/2012 None weight loss Quality acute 10/11/2011 None weight loss Quality impr oving 10/11/2011 pt states he got down to 130lbs but since moving to [place] has gained some weight back hypertension Quality chr onic 10/11/2011 None hypertension Onset and Resolution ongoing 10/11/2011 None hypertension Blood Pressure Values "white coat" (home SBP<129 / DBP<84) 10/11/2011 None hypertension Severity mi ld 10/11/2011 None weight loss Frequency of Episodes decreasing 10/11/2011 None weight loss Triggers jareth nge in diet 10/11/2011 pt states that he has had improvement in his diet since he moved to the assisted living facility. weight loss Alleviating Factors change in dietary habits 10/11/2011 None weight loss Pertinent Findings Denies depressed mood 10/11/2011 None weight loss Pertinent Findings Denies edema 10/11/2011 None hypertension Pertinent Findings Denies anxiety 10/11/2011 None hypertension Pertinent Findings Denies decreased energy 10/11/2011 None hypertension Pertinent Findings Denies nausea 10/11/2011 None hypertension Pertinent Findings Denies muscle weakness 10/11/2011 None hypertension Triggers no known associated factors 10/11/2011 None hypertension Alleviating Factors diet changes 10/11/2011 None hypertension Alleviating Factors exercise 10/11/2011 None hypertension Alleviating Factors medication 10/11/2011 None hypertension Exacerbating Factors stress 10/11/2011 None hypertension Significant Medical Condition s cardiac disease 10/11/2011 None nausea Onset of Symptom 1 months ago 07/12/2011 None nausea Severity moderate 07/12/2011 pt states that food does not appeal to h im and has lost 5 lbs since May knee pain Quality dull p ain 07/12/2011 None knee pain Quality acute 07/12/2011 None fatigue Onset and Resolution sudden in onset 07/12/2011 None fatigue Limitation on Activities moderately limits activities 07/12/2011 None fatigue Timing of Episodes no specific time 07/12/2011 None fatigue Significant Medical Conditions cardiac disease 07/12/2011 None fatigue Significant Medical Conditions anemia 07/12/2011 None fatigue Alleviating Factors rest 07/12/2011 None fatigue Quality worsening 07/12/2011 None knee pain Quality dull p ain 05/11/2011 None knee pain Quality acute 05/11/2011 None memory loss Quality diff iculty remembering names 04/12/2011 None memory loss Onset and Resolution ongoing 04/12/2011 None memory loss Onset of Symptom during adulthood 04/12/2011 None memory loss Quality diff iculty with calculations 04/12/2011 None memory loss Pertinent Findings Denies ataxia 04/12/2011 None memory loss Pertinent Findings Denies difficulty reading 04/12/2011 None memory loss Limitation on Activities moderately limits activities 04/12/2011 None memory loss Triggers str ess 04/12/2011 None memory loss Alleviating Factors medication 04/12/2011 None memory loss Pertinent Findings Denies motor deficits 04/12/2011 None memory loss Pertinent Findings Denies personality changes 04/12/2011 None hypertension Quality chr onic 01/11/2011 None memory loss Quality diff iculty remembering names 01/11/2011 None 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 P ATIENT, LEVEL III Diagnosis: Otalgia, left ear[ICD10: H92.02] Nay Martinez MD, [facility] CPT-4: 78423 07/25/2018 ([id number]) 06738 EST. P ATIENT, LEVEL III Diagnosis: Otalgia, left ear[ICD10: H92.02] Nay Martinez MD, [facility] CPT-4: 65247 07/05/2018 ([id number]) 06827 EST. P ATIENT, LEVEL III Diagnosis: Otorrhagia, bilateral[ICD10: H92.23] Nay Martinez MD, [facility] CPT-4: 18368 06/26/2018 ([id number]) 73057 EST. P ATIENT, LEVEL III Diagnosis: Essential (primary) hypertension[ICD10: I10] Diagnosis: Slow transit constipation[ICD10: K59.01] Nay Martinez MD, [facility] CPT-4: 04890 03/27/2018 ([id number]) 58651 EST. P ATIENT, LEVEL III Diagnosis: Slow transit constipation[ICD10: K59.01] Diagnosis: Other hypotension[ICD10: I95.89] Nay Martinez MD, [facility] CPT-4: 81758 02/14/2018 ([id number]) 87610 EST. P ATIENT, LEVEL IV Diagnosis: Essential (primary) hypertension[ICD10: I10] Diagnosis: Alzheimer's disease with early onset[ICD10: G30.0] Diagnosis: Actinic keratosis[ICD10: L57.0] Nay Martinez MD, [facility] CPT-4: 11646 11/08/2017 ([id number]) 66881 EST. P ATIENT, LEVEL IV Diagnosis: Essential (primary) hypertension[ICD10: I10] Diagnosis: Mixed hyperlipidemia[ICD10: E78.2] Diagnosis: Alzheimer's disease with early onset[ICD10: G30.0] Nay Martinez MD, [facility] CPT-4: 99131 08/09/2017 ([id number]) 32806 EST. P ATIENT, LEVEL IV Diagnosis: Essential (primary) hypertension[ICD10: I10] Diagnosis: Alzheimer's disease with early onset[ICD10: G30.0] Diagnosis: Mixed hyperlipidemia[ICD10: E78.2] Diagnosis: Pain in left knee[ICD10: M25.562] Nay Martinez MD, [facility] CPT-4: 23317 04/11/2017 ([id number]) 93196 EST. P ATIENT, LEVEL III Diagnosis: Essential (primary) hypertension[ICD10: I10] Diagnosis: Encounter for immunization[ICD10: Z23] Diagnosis: Alzheimer's disease with early onset[ICD10: G30.0] Nay Martinez MD, [facility] CPT-4: 38571 01/25/2017 ([id number]) 46663 EST. P ATIENT, LEVEL III Diagnosis: Otalgia, left ear[ICD10: H92.02] Nay Martinez MD, [facility] CPT-4: 51391 12/21/2016 ([id number]) 42663 EST. P ATIENT, LEVEL IV Diagnosis: Essential (primary) hypertension[ICD10: I10] Diagnosis: Alzheimer's disease with early onset[ICD10: G30.0] Diagnosis: Abnormal weight loss[ICD10: R63.4] Nay Martinez MD, [facility] CPT- 4: 46388 12/01/2016 ([id number]) 53435 EST. P ATIENT, LEVEL IV Diagnosis: Essential (primary) hypertension[ICD10: I10] Diagnosis: Mixed hyperlipidemia[ICD10: E78.2] Nay Martinez MD, [facility] CPT- 4: 35366 10/25/2016 09681 EST. PATIENT, LEVEL IV Diagnosis: Essential (primary) hypertension[ICD10: I10] Diagnosis: Alzheimer's disease with early onset[ICD10: G30.0] Diagnosis: Pain in left knee[ICD10: M25.562] Diagnosis: Cyst of kidney, acquired[ICD10: N28.1] Nay Martinez MD, [facility] CPT-4: 96093 07/26/2016 ([id number]) 07749 EST. P ATIENT, LEVEL IV Diagnosis: Essential (primary) hypertension[ICD10: I10] Diagnosis: Alzheimer's disease with early onset[ICD10: G30.0] Rosa Martinez MD, [facility] CPT-4: 12575 04/26/2016 ([id number]) 07284 EST. P ATIENT, LEVEL IV Diagnosis: Essential (primary) hypertension[ICD10: I10] Diagnosis: Alzheimer's disease with early onset[ICD10: G30.0] Diagnosis: VACCIN FOR INFLUENZA[ICD10: Z23] Nay Martinez MD, [facility] CPT-4: 96565 01/27/2016 ([id number]) 43840 EST. P ATIENT, LEVEL IV Diagnosis: Essential (primary) hypertension[ICD10: I10] Diagnosis: Alzheimer's disease with early onset[ICD10: G30.0] Nay Martinez MD, [facility] CPT-4: 23015 10/27/2015 ([id number]) 46213 EST. P ATIENT, LEVEL IV Diagnosis: Essential (primary) hypertension[ICD10: I10] Diagnosis: Alzheimer's disease with early onset[ICD10: G30.0] Nay Martinez MD, [facility] CPT-4: 80444 06/30/2015 ([id number]) 32941 EST. P ATIENT, LEVEL IV Diagnosis: Essential (primary) hypertension[ICD10: I10] Diagnosis: Alzheimer's disease with early onset[ICD10: G30.0] Nay Martinez MD, [facility] CPT-4: 16135 03/31/2015 [id number] EST. PATIENT, LEVEL III Diagnosis: Low back pain[ICD10: M54.5] eFrn Martinez MD, [facility] CPT-4: 22785 03/17/2015 ([id number]) 22012 EST. P ATIENT, LEVEL IV Diagnosis: ESSENTIAL HYPERTENSION[ICD9: 401.9] Diagnosis: Encounter for long-term (current) use of anticoagulants[ICD9: V58.61] Diagnosis: Skin change[ICD9: 782.9] Diagnosis: Change in mole[ICD9: 216.9] Diagnosis: VACCIN FOR INFLUENZA[ICD9: V04.81] Nay Martinez MD, [facility] CPT- 4: 59533 01/20/2015 ([id number]) 97297 EST. P ATIENT, LEVEL IV Diagnosis: ESSENTIAL HYPERTENSION[ICD9: 401.9] Diagnosis: OSTEOARTHROSIS-MULT SITE[ICD9: 715.80] Diagnosis: Knee pain[ICD9: 719.46] Diagnosis: ENCNTR LONG-ANTICOAG USE[ICD9: V58.61] Nay Martinez MD, [facility] CPT-4: 64127 12/15/2014 ([id number]) 89277 EST. P ATIENT, LEVEL IV Diagnosis: ESSENTIAL HYPERTENSION[ICD9: 401.9] Diagnosis: OSTEOARTHROSIS-MULT SITE[ICD9: 715.80] Diagnosis: Knee pain[ICD9: 719.46] Nay Martinez MD, [facility] CPT-4: 98713 09/30/2014 ([id number]) 42433 EST. P ATIENT, LEVEL IV Diagnosis: Skin cancer[ICD9: 173.90] Diagnosis: ESSENTIAL HYPERTENSION[ICD9: 401.9] Diagnosis: ALZHEIMER'S DISEASE[ICD9: 331.0] Diagnosis: Knee pain[ICD9: 719.46] Nay Martinez MD, [facility] CPT-4: 16812 07/01/2014 ([id number]) 64952 EST. P ATIENT, LEVEL IV Diagnosis: ESSENTIAL HYPERTENSION[ICD9: 401.9] Diagnosis: Dysuria[ICD9: 788.1] Diagnosis: Knee pain, bilateral[ICD9: 719.46] Diagnosis: Osteoarthritis[ICD9: 715.90] Diagnosis: Dementia[ICD9: 294.8] Nay Martinez MD, [facility] CPT-4: 89842 04/01/2014 ([id number]) 39268 EST. P ATIENT, LEVEL IV Diagnosis: ESSENTIAL HYPERTENSION[ICD9: 401.9] Diagnosis: VACCIN FOR INFLUENZA[ICD10: Z23] Diagnosis: HYPERLIPIDEMIA[ICD9: 272.4] Diagnosis: ALZHEIMER'S DISEASE[ICD9: 331.0] Nay Martinez MD, [facility] CPT-4: 01876 01/13/2014 ([id number]) 68935 EST. P ATIENT, LEVEL IV Diagnosis: Dementia[ICD9: 294.8] Diagnosis: Alzheimer's dementia[ICD9: 331.0] Diagnosis: OSTEOARTHROSIS-MULT SITE[ICD9: 715.80] Diagnosis: ESSENTIAL HYPERTENSION[ICD9: 401.9] Nay Martinez MD, [facility] CPT- 4: 56128 10/15/2013 ([id number]) 97283 EST. P ATIENT, LEVEL III Diagnosis: Knee pain, acute[ICD9: 719.46] Diagnosis: Osteoarthritis[ICD9: 715.90] Diagnosis: Gait instability[ICD9: 781.2] Nay Martinez MD, [facility] CPT-4: 39762 09/11/2013 ([id number]) 56606 EST. P ATIENT, LEVEL III Diagnosis: CELLULITIS OF FACE[ICD9: 682.0] Diagnosis: Esophageal reflux[ICD9: 530.81] Rosa Martinez MD, [facility] CPT- 4: 75225 08/22/2013 16256 EST. PATIENT, LEVEL II Diagnosis: CELLULITIS OF FACE[ICD9: 682.0] Nay Martinez MD, [facility] CPT-4: 17130 08/08/2013 ([id number]) 85021 EST. P ATIENT, LEVEL III Diagnosis: Cellulitis of mandaen[ICD9: 682.0] Nay Martinez MD, [facility] CPT-4: 57050 07/29/2013 ([id number]) 89362 EST. P ATIENT, LEVEL IV Diagnosis: ESSENTIAL HYPERTENSION[SNOMED: 74815224] Diagnosis: ALZHEIMER'S DISEASE[ICD9: 331.0] Diagnosis: INTEGUMENT TISS SYMP NEC[ICD9: 782.9] Diagnosis: JOINT PAIN-L/LEG[ICD9: 719.46] Nay Martinez MD, [facility] CPT-4: 72940 06/25/2013 ([id number]) 84015 EST. P ATIENT, LEVEL IV Diagnosis: ESSENTIAL HYPERTENSION[SNOMED: 60633546] Diagnosis: ACTINIC KERATOSIS[ICD9: 702.0] Diagnosis: Skin cancer[ICD9: 173.90] Diagnosis: COUGH[ICD9: 786.2] Diagnosis: ACUTE BRONCHITIS[ICD9: 466.0] Nay Martinez MD, [facility] CPT-4: 73086 03/26/2013 [id number] EST. PATIENT, LEVEL IV Diagnosis: ESSENTIAL HYPERTENSION[SNOMED: 89114532] Diagnosis: ALZHEIMER'S DISEASE[ICD9: 331.0] Diagnosis: JOINT PAIN-L/LEG[ICD9: 719.46] Diagnosis: MUSCSKEL SYMPT LIMB NEC[ICD9: 729.89] Nay Martinez MD, [facility] CPT-4: 37073 11/20/2012 ([id number]) 28670 EST. P ATIENT, LEVEL IV Diagnosis: ESSENTIAL HYPERTENSION[SNOMED: 78915743] Diagnosis: ALZHEIMER'S DISEASE[ICD9: 331.0] Diagnosis: ENCNTR LONG-ANTICOAG USE[ICD9: V58.61] Diagnosis: Skin change[ICD9: 782.9] [facility] CPT-4: 72288 08/21/2012 ([id number]) 56730 EST. P ATIENT, LEVEL III Diagnosis: SUBDURAL HEMORRHAGE[ICD9: 432.1] Nay Martinez MD, [facility] CPT-4: 16846 06/28/2012 ([id number]) 15143 EST. P ATIENT, LEVEL IV Diagnosis: ESSENTIAL HYPERTENSION[SNOMED: 29519019] Diagnosis: Subdural hematoma[ICD9: 432.1] Diagnosis: Encounter for long-term (current) use of anticoagulants[ICD9: V58.61] [facility] CPT-4: 16788 05/21/2012 ([id number]) Patient adm itted to the hospital from clinic (NO CHARGE) Diagnosis: Lower extremity weakness[ICD9: 729.89] Diagnosis: FALL AGAINST OBJECT[ICD9: E888.1] Diagnosis: Gait instability[ICD9: 781.2] [facility] CPT-4: 25757B 04/26/2012 ([id number]) 96640 EST. P ATIENT, LEVEL IV Diagnosis: ESSENTIAL HYPERTENSION[SNOMED: 66769059] Diagnosis: ALZHEIMER'S DISEASE[ICD9: 331.0] Diagnosis: HYPERLIPIDEMIA[ICD9: 272.4] [facility] CPT-4: 99379 02/14/2012 ([id number]) 69561 EST. P ATIENT, LEVEL IV Diagnosis: ALZHEIMER'S DISEASE[ICD9: 331.0] Diagnosis: Abnormal loss of weight[ICD9: 783.21] Diagnosis: Knee pain, bilateral[ICD9: 719.46] Diagnosis: ESSENTIAL HYPERTENSION[SNOMED: 50464594] Nay Martienz MD, C CPT-4: 88468 10/11/2011 ([id number]) 62632 EST. P ATIENT, LEVEL IV Diagnosis: ESSENTIAL HYPERTENSION[SNOMED: 73074038] Diagnosis: JOINT PAIN-L/LEG[ICD9: 719.46] Diagnosis: Thrush[ICD9: 112.0] Diagnosis: Abdominal pain[ICD9: 789.00] Nay Martinez MD, [facility] CPT-4: 39432 07/12/2011 ([id number]) 15906 EST. [facility] [place] Diagnosis: Knee pain[ICD9: 719.46] Diagnosis: OSTEOARTHROSIS-MULT SITE[ICD9: 715.80] Nay Martinez MD, [facility] CPT-4: 77278 05/11/2011 ([id number]) 12713 EST. [facility] [place] IV Diagnosis: Alzheimer's dementia[ICD9: 331.0] Diagnosis: ESSENTIAL HYPERTENSION[SNOMED: 09060714] Nay Martinez MD, C CPT-4: 68886 04/12/2011 67825 EST. PATIENT, LEVEL IV Diagnosis: ESSENTIAL HYPERTENSION[SNOMED: 58465029] Diagnosis: HYPERLIPIDEMIA[ICD9: 272.4] Diagnosis: VACCIN FOR INFLUENZA[ICD9: V04.81] Diagnosis: Dementia[ICD9: 294.8] Nay Martinez MD, [facility] CPT-4: 25253 01/11/2011 Plan of Care Planned Activity Notes C odes Status Date Appointment: Rosa Aguilar WPtel: [address] [place], [place] [id number] [facility] - Annual Wellness Visit 08/21/2018 Visit Plan: Blood in ears - removed the dried blood shard that is residual in left ear - no other treatment changes needed. 07/25/2018 Appointment: Nay Martinez WPtel: [address] [place], [place] [address] [place] (15 min) Moderate 07/25/2018 Patient Education: Patient Medication Summary Completed 07/25/2018 Visit Plan: Blood in ears - this epstein s not completely resolved - I have recommended pt to continue to use mineral oil in ears nightly x 10 days - RTC in 2 wks 07/05/2018 Visit Plan: Blood in ears - this epstein s not completely resolved - I have recommended pt to continue to use mineral oil in ears nightly x 10 days - RTC in 2 wks 07/05/2018 Appointment: Nay Martinez WPtel: [facility] [place] [place] (15 min) Moderate 07/05/2018 Patient Education: Patient Medication Summary Completed 07/05/2018 Visit Plan: Nasal congestion - rx f or flonase to the [facility] - rx was called to [facility]. Blood in ears - due to pt using qtips aggressively - recommended pt to use mineral oil in ears nightly x 10 days - return to clinic in 10 days for my evaluation to see if there are any residual lesions in his ears once the dried blood is out of the ear canals. 06/26/2018 Appointment: Nay Martinez WPtel: [facility] [place] (15 min) Moderate 06/26/2018 Patient Education: Patient Medication Summary Completed 06/26/2018 Visit Plan: Constipation - not opti raad treated - recommended increase in dose of power pudding - call if not improving. Hypertension - well controlled - continue with current medications, continue with no added salt diet. Pt has been encouraged to exercise daily. The pt has been advised to call the office if there are any acute concerns about change in blood pressure readings at home. 03/27/2018 Appointment: Nay Martinez WPtel: [facility] [place] (15 min) Moderate 03/27/2018 Patient Education: Patient Medication Summary Completed 03/27/2018 Appointment: Nay Martinez WPtel: [address] [facility] [place] (15 min) Moderate 03/07/2018 Appointment: Nay Martinez [facility]Ptel[facility] [place] (15 min) Moderate 02/21/2018 Visit Plan: Constipation -discussed with pt - start on power pudding - and patient may need to have Linzess if his constipation does not improve. Hypotension - discussed with the patient - we may need to have his l isinopril dose decreased from 20mg to 10mg - will have the staff at the facility check his blood pressure twice daily x 3 days and call with his pressures on Monday morning. 02/14/2018 Appointment: Nay Martinez WPtel: [facility] [facility] [place] [place] (15 min) Moderate 02/14/2018 Patient Education: Patient Medication Summary Completed 02/14/2018 Visit Plan: Hypertension - well con trolled - continue with current medications, continue with no added salt diet. Pt has been encouraged to exercise daily. The pt has been advised to call the office if there are any acute concerns about change in blood pressure readings at home. Actinic Keratosis - treated with cryotherapy x 3, pt advised on how to appropriately care for the lesion. Call if not improved after thorough healing. cryotherapy on right upper cheek Dementia - progressing - monitor symptoms - continue current medications. 11/08/2017 Appointment: Nay Martinez WPtel: [facility] [facility] [place] [place] (15 min) Moderate 11/08/2017 Patient Education: Patient Medication Summary Completed 11/08/2017 Visit Plan: Medicare Exam - today w e discussed the patients past history, immunizations, preventative exams/evaluations - colonoscopy, fecal occult blood testing, routine labs for renal function, glucose, cholesterol, osteoporosis evaluations, cardiovascular testing and cancer screenings. We have also discussed mental health and the signs/symptoms of depression. The patient was advised of home safety evaluations and the need to make sure that as the aging process continues, we need to be aware of different ways to make the home a safer place to reside. The patient has also been counseled that exercise is necessary - and of utmost importance as we age to help decrease fall risk and to maintain independence in the home. Today we discussed the need for the patient to create paperwork for Advanced directives as well as for the patient to provide this office with a copy of her DOPA paperwork for health care surrogate. 08/11/2017 Appointment: [facility] [place] [address] - Annual Wellness Visit 08/11/2017 Patient Education: Patient Medication Summary Completed 08/11/2017 Visit Plan: Hyperlipidemia - lashaun hendrix well controlled with chol/hdl ratio of 1.7 - therefore with his symptoms of leg pain , muscle weakness - I recommended that his dose of lipitor decrease, so I placed a phone call to Dr. Egan about decreasing the dose of lipitor - he is in agreement to decreasing the dose from 40mg to 20mg - monitor symptoms and labs - we will call pt with this new medication change. Hypertension - well controlled - continue with current medications, continue with no added salt diet. Pt has been encouraged to exercise daily. The pt has been advised to call the office if there are any acute concerns about change in blood pressure readings at home. Alzheimer's disease - progressive - monitor symptoms - continue with current medications. Weight loss - increase protein, increase fat intake. 08/09/2017 Appointment: Nay Martinez WPtel: [address] [facility] [place] (15 min) Moderate 08/09/2017 Patient Education: Patient Medication Summary Completed 08/09/2017 Visit Plan: Hypertension - well con trolled - continue with current medications, continue with no added salt diet. Pt has been encouraged to exercise daily. The pt has been advised to call the office if there are any acute concerns about change in blood pressure readings at home. Knee pain - left sided - discussed with patient, he is not interested in a replacement revision at this time. He will consider his options. Dementia - progressive per his 's report - his son, however feels like his dad has been stable - continue with current medications, monitor symptoms and continue supportive care. Hyperlipidemia - pt has been counseled about appropriate diet, exercise, and need for low fat food choices. I have discussed the need for the patient to take medications as prescribed. If the patient has negative side effects from the medication, they are to CALL the office and not abruptly discontinue the medication without discussion with a practitioner in the office. We will check labs in 3-6 months for follow up on the patient's chronic medical problem and to assure normal liver response to medications. 04/11/2017 Appointment: Nay Martinez WPtel: [phone] [facility] (15 min) Moderate 04/11/2017 Patient Education: Patient Medication Summary Completed 04/11/2017 Visit Plan: Hypertension - well con trolled - continue with current medications, continue with no added salt diet. Pt has been encouraged to exercise daily. The pt has been advised to call the office if there are any acute concerns about change in blood pressure readings at home. Dementia - mixed type - continue with current management - Continue with cerefolin NAC - this seems to have helped to stabilize his memory loss. 01/25/2017 Appointment: Nay Martinez WPtel: [phone] [facility] (15 min) Moderate 01/25/2017 Patient Education: Patient Medication Summary Completed 01/25/2017 Appointment: Nay Martinez WPtel: [address] [facility] [place] (15 min) Moderate 01/24/2017 Visit Plan: Dried bloody debris in left ear - removed with alligator forceps, ear currette - pt to use mineral oil in the ear. 12/21/2016 Appointment: Nay Martinez WPtel: [address] [facility] [place] (15 min) Moderate 12/21/2016 Patient Education: Patient Medication Summary Completed 12/21/2016 Visit Plan: Hypertension - well con trolled - continue with current medications, continue with no added salt diet. Pt has been encouraged to exercise daily. The pt has been advised to call the office if there are any acute concerns about change in blood pressure readings at home. Alzheimer's disease - progressive - monitor symptoms - continue with current medications. Weight loss - increase protein, increase fat intake. 12/01/2016 Appointment: Nay Martinez WPtel: [address] [facility] [place] (15 min) Moderate 12/01/2016 Patient Education: Patient Medication Summary Completed 12/01/2016 Patient Education: Hypertension Completed 12/01/2016 Visit Plan: Hypertension - alexandra nicole - continue with current medications, continue with no added salt diet. Pt has been encouraged to exercise daily. The pt has been advised to call the office if there are any acute concerns about change in blood pressure readings at home. Alzheimer's Dementia - Pt with slowly progressive pattern. I have discussed with pt and family the prognosis of this disease state and the need for the family to anticipate further decline with behavior changes. Continue with current plan of treatment. Hyperlipidemia - pt has been counseled about appropriate diet, exercise, and need for low fat food choices. I have discussed the need for the patient to take medications as prescribed. If the patient has negative side effects from the medication, they are to CALL the office and not abruptly discontinue the medication without discussion with a practitioner in the office. We will check labs in 3-6 months for follow up on the patient's chronic medical problem and to assure normal liver response to medications. 10/25/2016 Appointment: Nay Martinez WPtel: [facility] [place] (15 min) Moderate 10/25/2016 Patient Education: Patient Medication Summary Completed 10/25/2016 Patient Education: Hypertension Completed 10/25/2016 Patient Education: Patient Medication Summary Completed 08/15/2016 Care Plan: I Fecal Occult Blood Cancelled 08/15/2016 Visit Plan: Medicare Exam - today w e discussed the patients past history, immunizations, preventative exams/evaluations - colonoscopy, fecal occult blood testing, routine labs for renal function, glucose, cholesterol, osteoporosis evaluations, cardiovascular testing and cancer screenings. We have also discussed mental health and the signs/symptoms of depression. The patient was advised of home safety evaluations and the need to make sure that as the aging process continues, we need to be aware of different ways to make the home a safer place to reside. The patient has also been counseled that exercise is necessary - and of utmost importance as we age to help decrease fall risk and to maintain independence in the home. 08/05/2016 Appointment: [facility]el[phone] [facility] - Annual Wellness Visit 08/05/2016 Patient Education: Patient Medication Summary Completed 08/05/2016 Visit Plan: Hypertension - well con trolled - continue with current medications, continue with no added salt diet. Pt has been encouraged to exercise daily. The pt has been advised to call the office if there are any acute concerns about change in blood pressure readings at home. Alzheimer's Dementia - Pt with slowly progressive pattern. I have discussed with pt and family the prognosis of this disease state and the need for the family to anticipate further decline with behavior changes. Continue with current plan of treatment. Weakness - Knee pain - recommended therapy with john hansen - will get this set up for patient. Renal cyst - ultrasound ordered for follow up on cyst - for tomorrow. 07/26/2016 Appointment: Nay Martinez WPtel: [address] [facility] [place] [place] (15 min) Moderate 07/26/2016 Patient Education: Patient Medication Summary Completed 07/26/2016 Patient Education: Hypertension Completed 07/26/2016 Visit Plan: Hypertension - well con trolled - continue with current medications, continue with no added salt diet. Pt has been encouraged to exercise daily. The pt has been advised to call the office if there are any acute concerns about change in blood pressure readings at home. Alzheimer's Dementia - Pt with slowly progressive pattern. I have discussed with pt and family the prognosis of this disease state and the need for the family to anticipate further decline with behavior changes. Continue with current plan of treatment. 04/26/2016 Appointment: Rosa Aguilar [facility]Ptel[phone] [place] (15 min) Moderate 04/26/2016 Patient Education: Patient Medication Summary Completed 04/26/2016 Patient Education: Hypertension Completed 04/26/2016 Visit Plan: Hypertension - well con trolled - continue with current medications, continue with no added salt diet. Pt has been encouraged to exercise daily. The pt has been advised to call the office if there are any acute concerns about change in blood pressure readings at home. Alzheimer's Dementia - Pt with slowly progressive pattern. I have discussed with pt and family the prognosis of this disease state and the need for the family to anticipate further decline with behavior changes. Continue with current plan of treatment. 01/27/2016 Appointment: Nay Martinez WPtel: [phone] [facility] (15 min) Moderate 01/27/2016 Patient Education: Patient Medication Summary Completed 01/27/2016 Patient Education: Hypertension Completed 01/27/2016 Visit Plan: Hypertension - well con trolled - continue with current medications, continue with no added salt diet. Pt has been encouraged to exercise daily. The pt has been advised to call the office if there are any acute concerns about change in blood pressure readings at home. Alzheimer's Dementia - Pt with slowly progressive pattern. I have discussed with pt and family the prognosis of this disease state and the need for the family to anticipate further decline with behavior changes. Continue with current plan of treatment. 10/27/2015 Appointment: Nay Martinez WPtel: [phone] [facility] (15 min) Moderate 10/27/2015 Patient Education: Patient Medication Summary Completed 10/27/2015 Patient Education: Hypertension Completed 10/27/2015 Visit Plan: Hypertension - well con trolled - continue with current medications, continue with no added salt diet. Pt has been encouraged to exercise daily. The pt has been advised to call the office if there are any acute concerns about change in blood pressure readings at home. Alzheimer's Dementia - Pt with slowly progressive pattern. I have discussed with pt and family the prognosis of this disease state and the need for the family to anticipate further decline with behavior changes. Continue with current plan of treatment. 06/30/2015 Appointment: Nay Martinez WPtel: [facility] [place] [place] (15 min) Moderate 06/30/2015 Appointment: Nay Martinez WPtel: [facility] [place] [place] (15 min) Moderate 06/30/2015 Patient Education: Patient Medication Summary Completed 06/30/2015 Patient Education: Hypertension Completed 06/30/2015 Visit Plan: Hypertension - well con trolled - continue with current medications, continue with no added salt diet. Pt has been encouraged to exercise daily. The pt has been advised to call the office if there are any acute concerns about change in blood pressure readings at home. Chronic anticoagulation for mechanical valve. Alzheimer's Dementia - Pt with slowly progressive pattern. I have discussed with pt and family the prognosis of this disease state and the need for the family to anticipate further decline with behavior changes. Continue with current plan of treatment. 03/31/2015 Appointment: Nay Martinez WPtel: [address] [facility] [place] (15 min) Moderate 03/31/2015 Patient Education: Patient Medication Summary Completed 03/31/2015 Patient Education: Hypertension Completed 03/31/2015 Visit Plan: Low back pain- the mike ent was instructed in appropriate posture, need for weight loss to alleviate abdominal obesity that is worsening the patient's back pain.. The pt is to use prn antiinflammatories to manage acute pain. The patient is to call the office if the pain is worsening or does not improve. Will send paperwork for back brace. 03/17/2015 Patient Education: Patient Medication Summary Completed 03/17/2015 Visit Plan: Hypertension - well con trolled - continue with current medications, continue with no added salt diet. Pt has been encouraged to exercise daily. The pt has been advised to call the office if there are any acute concerns about change in blood pressure readings at home. Check PT/INR this week Skin lesion on left cheek. -needs to be seen by Dr. Gigi Anne will need this lesion surgically removed. 01/20/2015 Visit Plan: Hypertension - well con trolled - continue with current medications, continue with no added salt diet. Pt has been encouraged to exercise daily. The pt has been advised to call the office if there are any acute concerns about change in blood pressure readings at home. Check PT/INR this week Skin lesion on left cheek. -needs to be seen by Dr. Gigi Anne will need this lesion surgically removed. 01/20/2015 Appointment: Nay Martinez WPtel: [phone] [facility] [place] [place] (15 min) Moderate 01/20/2015 Patient Education: Patient Medication Summary Completed 01/20/2015 Patient Education: Hypertension Completed 01/20/2015 Care Plan: Referral Order SNOMED-CT : [id number] Ordered 01/20/2015 Appointment: Nay Martinez WPtel: [address] [facility] (15 min) Moderate 12/18/2014 Visit Plan: Hypertension - well con trolled - continue with current medications, continue with no added salt diet. Pt has been encouraged to exercise daily. The pt has been advised to call the office if there are any acute concerns about change in blood pressure readings at home. OA - knee pain improved post-operatively - continue with current treatment, therapy, etc. Chronic Anticoagulant use - Pt has been counseled about the anticoagulant, need for serial monitoring, and need for the pt to alert the physician as to any new bruising, or acute bleeding. Therapeutic goal for INR is between 2.0 and 3.5. 12/15/2014 Appointment: Nay Martinez WPtel: [address] [facility] (15 min) Moderate 12/15/2014 Patient Education: Patient Medication Summary Completed 12/15/2014 Appointment: (30 min) Complex 12/11/2014 Visit Plan: Hypertension - well con trolled - continue with current medications, continue with no added salt diet. Pt has been encouraged to exercise daily. The pt has been advised to call the office if there are any acute concerns about change in blood pressure readings at home. Knee pain - Pt desires to have his knee operated on at [facility], I have placed a phone call to Dr. Ballesteros - waiting on a call back 09/30/2014 Appointment: Nay Martinez WPtel: [facility] Follow up 09/30/2014 Patient Education: Patient Medication Summary Completed 09/30/2014 Patient Education: Hypertension Completed 09/30/2014 Visit Plan: Hypertension - well con trolled - continue with current medications, continue with no added salt diet. Pt has been encouraged to exercise daily. The pt has been advised to call the office if there are any acute concerns about change in blood pressure readings at home. Skin Cancer on right side of face - recommended pt to stop use of Efudex on face, monitor symptoms, if not improving, will need to consider removal by general surgeon. Alzheimer's Dementia - Pt with slowly progressive pattern. I have discussed with pt and family the prognosis of this disease state and the need for the family to anticipate further decline with behavior changes. Continue with current plan of treatment. OA - with significant knee pain - referral to Dr. Ballesteros per patient's request - will hopefully be able to use Synvisc for knee. 07/01/2014 Appointment: Nay Martinez WPtel: [address] [facility] Follow up 07/01/2014 Patient Education: Patient Medication Summary Completed 07/01/2014 Patient Education: Hypertension Completed 07/01/2014 Care Plan: Referral Order SNOMED-CT : [id number] Ordered 07/01/2014 Visit Plan: Hypertension - well con trolled - continue with current medications, continue with no added salt diet. Pt has been encouraged to exercise daily. The pt has been advised to call the office if there are any acute concerns about change in blood pressure readings at home. Joint Injection - Pt was given post - injection instructions. The pt has been advised to use anti-inflammatories post injection today, ice to the injected site, call if redness, warmth, or increased pain occurs at the site of injection. Dysuria - check ua today. Alzheimer's Dementia - Pt with slowly progressive pattern. I have discussed with pt and family the prognosis of this disease state and the need for the family to anticipate further decline with behavior changes. Continue with current plan of treatment. 04/01/2014 Appointment: Nay Martinez WPtel: [address] [facility] Follow up 04/01/2014 Patient Education: Patient Medication Summary Completed 04/01/2014 Visit Plan: Hypertension - well con trolled - continue with current medications, continue with no added salt diet. Pt has been encouraged to exercise daily. The pt has been advised to call the office if there are any acute concerns about change in blood pressure readings at home. Hyperlipidemia - pt has been counseled about appropriate diet, exercise, and need for low fat food choices. I have discussed the need for the patient to take medications as prescribed. If the patient has negative side effects from the medication, they are to CALL the office and not abruptly discontinue the medication without discussion with a practitioner in the office. We will check labs in 3-6 months for follow up on the patient's chronic medical problem and to assure normal liver response to medications. Alzheimer's Dementia - Pt with slowly progressive pattern. I have discussed with pt and family the prognosis of this disease state and the need for the family to anticipate further decline with behavior changes. Continue with current plan of treatment. 01/13/2014 Appointment: Nay Martinez WPtel: [facility] Follow up 01/13/2014 Patient Education: Patient Medication Summary Completed 01/13/2014 Patient Education: Hypertension Completed 01/13/2014 Care Plan: COMPLETE CBC AUTOMATED LOINC : 91282-2 Ordered 01/13/2014 Visit Plan: Knee pain has improved - pt needs to continue with use of the voltaren gel, no change in treatment at this time, he is not interested in seeing an orthopedic surgeon until his knee pain is not controlled with the voltaren gel. Dementia - symptoms stable, but the radiological health specialist of [employer] is stopping production of the 10mg pills, therefore, Omid has been given a [facility] xr starter pack and he is to START THE [facility] XR STARTER PACK ONCE HIS CURRENT SUPPLY OF N[facility]DA 10MG TWICE DAILY IS FINISHED. Omid has been given a script for a 90 day supply of the [facility] xr 28mg daily that is to start once the [facility] xr starter pack has been completed. HTN - stable no change in medications. 10/15/2013 Appointment: Nay Martinez WPtel: [facility] [place] Follow up 10/15/2013 Patient Education: Patient Medication Summary Completed 10/15/2013 Patient Education: Hypertension Completed 10/15/2013 Appointment: Nay Martinez WPtel: [facility] [place] [place] Follow up 10/02/2013 Visit Plan: Lower leg pain - rx for voltaren gel to be used on right knee four times daily to alleviate pain in knee. Pt to use walker - RX for rolator walker. 09/11/2013 Appointment: Nay Martinez WPtel: [facility] [place] [place] Other 09/11/2013 Patient Education: Patient Medication Summary Completed 09/11/2013 Visit Plan: Esophageal Reflux - the patient has been counseled against excessive intake of caffiene, spicy foods, peppermint, and cinnamon - all of which can exacerbate esophageal reflux. The patient is to take medications as prescribed and call the office if the symptoms are not improving. Cellulitis-almost completely healed-continue current treatement. 08/22/2013 Appointment: Rosa Aguilar WPtel: [address] [place] [address] Follow up 08/22/2013 Patient Education: Patient Medication Summary Completed 08/22/2013 Visit Plan: Qoimkmitxkn-bsfcbfkt-bc ntinue treatment-return in 2 weeks for follow up 08/08/2013 Appointment: Rosa Aguilar WPtel: [address] [place] [address] Follow up 08/08/2013 Patient Education: Patient Medication Summary Completed 08/08/2013 Visit Plan: Cellulitis - start oral abx as directed, return to clinic as previously directed, call for acute change in symptoms, worsening redness, warmth, discharge. Stop the 5-FU 07/29/2013 Patient Education: Patient Medication Summary Completed 07/29/2013 Visit Plan: Hypertension - well con trolled - continue with current medications, continue with no added salt diet. Pt has been encouraged to exercise daily. The pt has been advised to call the office if there are any acute concerns about change in blood pressure readings at home. Alzheimer's Dementia - Pt with slowly progressive pattern. I have discussed with pt and family the prognosis of this disease state and the need for the family to anticipate further decline with behavior changes. Continue with current plan of treatment. Skin lesion on mandaen - pt to use flurouracil on lesions on mandaen. OA of knees - pt to try voltaren gel. 06/25/2013 Appointment: Nay Martinez WPtel: [address] [place], [place] [id number] Follow up 06/25/2013 Patient Education: Patient Medication Summary Completed 06/25/2013 Patient Education: Hypertension Completed 06/25/2013 Visit Plan: Hypertension - well con trolled - continue with current medications, continue with no added salt diet. Pt has been encouraged to exercise daily. The pt has been advised to call the office if there are any acute concerns about change in blood pressure readings at home. Bronchitis - acute case of bronchitis identified. Pt has been given antibiotics, breathing treatments as appropriate, and pt has been instructed to call if symptoms are not improved, or if symptoms acutely worsen. Cough - rx for phenergan with codeine for cough at bedtime and mucinex for daytime use to thin mucus. Wound Instructions - Pt was instruced to keep the wound clean, wash with antibacterial soap, use triple antibiotic ointment, call if redness, pustular drainage, or any other acute conerns. 03/26/2013 Appointment: Nay Martinez WPtel: [address] [place], [place] [id number] Follow up 03/26/2013 Patient Education: Patient Medication Summary Completed 03/26/2013 Patient Education: Hypertension Completed 03/26/2013 Appointment: Rosa Aguilar WPtel: [address] [place] [address] Nurse Visit 01/14/2013 Patient Education: Patient Medication Summary Completed 01/14/2013 Visit Plan: Wound Instructions - Pt was instruced to keep the wound clean, wash with antibacterial soap, use triple antibiotic ointment, call if redness, pustular drainage, or any other acute conerns. 12/25/2012 Appointment: Rosa Aguilar WPtel: [address] [place], [place] [id number] Surgical Procedure 12/25/2012 Patient Education: Patient Medication Summary Completed 12/25/2012 Visit Plan: Hypertension - well con trolled - continue with current medications, continue with no added salt diet. Pt has been encouraged to exercise daily. The pt has been advised to call the office if there are any acute concerns about change in blood pressure readings at home. Alzheimer's Dementia - Pt with slowly progressive pattern. I have discussed with pt and family the prognosis of this disease state and the need for the family to anticipate further decline with behavior changes. Continue with current plan of treatment. Peripheral weakness - continue with physical therapy - right leg continues to be weak. 11/20/2012 Appointment: Nay Martinez WPtel: [address] [facility] [place] Follow up 11/20/2012 Patient Education: Patient Medication Summary Completed 11/20/2012 Patient Education: Hypertension Completed 11/20/2012 Visit Plan: Hypertension - well con trolled - continue with current medications, continue with no added salt diet. Pt has been encouraged to exercise daily. The pt has been advised to call the office if there are any acute concerns about change in blood pressure readings at home. Alzheimer's Dementia - Pt with slowly progressive pattern. I have discussed with pt and family the prognosis of this disease state and the need for the family to anticipate further decline with behavior changes. Continue with current plan of treatment. Pt noticed some decline in his memory after his subdural hematoma and the neurosurgery that he endured. Pt will be changed to the higher dose of exelon 13.3mg patches to be changed every days. 08/21/2012 Appointment: Nay Martinez WPtel: [address] [facility] [place] Follow up 08/21/2012 Patient Education: Hypertension Completed 08/21/2012 Patient Education: Patient Medication Summary Completed 08/21/2012 Visit Plan: Subdural hematoma-recen t fall-decreased in size with tiny acute component-plan to repeat CT in 2 weeks Low back thed-oenrqwvabqp-ZO joint Injection today in the office - Pt was given post - injection instructions. The pt has been advised to use antiinflammatories post injection today, ice to the injected site, call if redness, warmth, or increased pain occurs at the site of injection. 06/28/2012 Appointment: [id number] Other 06/28/2012 Patient Education: Patient Medication Summary Completed 06/28/2012 Visit Plan: Hypertension - well con trolled - continue with current medications, continue with no added salt diet. Pt has been encouraged to exercise daily. The pt has been advised to call the office if there are any acute concerns about change in blood pressure readings at home. Subdural hematoma- plan a ct scan of his head in 6 weeks. We will fax the ct scan to Dr. Kellogg at . Anticoagulation- recommended pt to continue with lovenox, will check INR on monday of this week. 05/21/2012 Appointment: Nay Martinez WPtel: [facility] [facility] follow up 05/21/2012 Patient Education: Patient Medication Summary Completed 05/21/2012 Patient Education: Hypertension Completed 05/21/2012 Appointment: Nay Martinez WPtel: [facility] Follow up 05/15/2012 Visit Plan: Fall-sudden onset of ri ght lower extremity weakness-Dr Martinez in to evaluate patient-plan to admit for observation and further work up which includes a STAT CT of the head and labs. Patient and verbalize understanding. 04/26/2012 Appointment: Nay Martinez WPtel: [facility] balance problem, fall 1 month ago Other 04/26/2012 Patient Education: Patient Medication Summary Completed 04/26/2012 Visit Plan: Hypertension - well con trolled - continue with current medications, continue with no added salt diet. Pt has been encouraged to exercise daily. The pt has been advised to call the office if there are any acute concerns about change in blood pressure readings at home. Hyperlipidemia - pt has been counseled about appropriate diet, exercise, and need for low fat food choices. I have discussed the need for the patient to take medications as prescribed. If the patient has negative side effects from the medication, they are to CALL the office and not abruptly discontinue the medication without discussion with a practicioner in the office. We will check labs in 3-6 months for follow up on the patient's chronic medical problem and to assure normal liver response to medications. Alzheimer's Dementia - Pt with slowly progressive pattern. I have discussed with pt and family the prognosis of this disease state and the need for the family to anticipate further decline with behavior changes. Continue with current plan of treatment. 02/14/2012 Appointment: Nay Martinez WPtel: [address] [facility] Established Patient Preventative visit 02/14/2012 Patient Education: Patient Medication Summary Completed 02/14/2012 Patient Education: High Blood Pressure: Essential Hypertension Completed 02/14/2012 Visit Plan: Alzheimer's Dementia - Pt with slowly progressive pattern. I have discussed with pt and family the prognosis of this disease state and the need for the family to anticipate further decline with behavior changes. Continue with current plan of treatment. Weight loss - discussed the need for Vidal to not loose more weight. He reports that he has actually gained weight in the past few weeks since moving to [facility]. Knee pain - has improved with flector patches, no change in current treatment. HTN - controlled - no change in medications. I have encouraged Omid to check his blood pressures oc casionally at home and bring in his list at his next office visit. 10/11/2011 Appointment: Nay Martinez WPtel: [facility]9 [facility]66[facility] Other 10/11/2011 Patient Education: Patient Medication Summary Completed 10/11/2011 Patient Education: High Blood Pressure: Essential Hypertension Completed 10/11/2011 Visit Plan: Hypertension - well con trolled - continue with current medications, continue with no added salt diet. Pt has been encouraged to exercise daily. The pt has been advised to call the office if there are any acute concerns about change in blood pressure readings at home. Abdominal pain- STOP IRON - WE WILL CHECK A CBC TODAY AND AGAIN IKnee pain- uncontrolled- but improving, recommend watchful waiting and to use FLECTOR PATCH, 1/4 of a patch and change twice daily.. Call if the pain worsens. ABOUT 2 MONTHS TO SEE IF STOPPING THE IRON HAS CAUSED ANY ADVERSE EFFECTS. Urine checked today. THICK COATING ON THE TONGUE - WILL ORDER A SWISH AND SWALLOW FOR YEAST - THIS MAY BE PART OF THE CAUSE OF THE ABNORMAL TASTE. UTI - pt with positive urinalysis - culture sent if appropriate. Antibiotic electronically prescribed to pt's pharmacy of choice. Pt to call if symptoms do not improve. RETURN TO CLINIC ON MONDAY FOR A COUMADIN CHECK OF BLOOD. 07/12/2011 Appointment: Nay Martinez WPtel: [facility] Other 07/12/2011 Patient Education: Patient Medication Summary Completed 07/12/2011 Patient Education: High Blood Pressure: Essential Hypertension Completed 07/12/2011 Visit Plan: Knee pain- uncontrolled - but improving, recommend watchful waiting and to use FLECTOR PATCH, 1/4 of a patch and change twice daily.. Call if the pain worsens. 05/11/2011 Appointment: Nay Martinez: [facility] Other 05/11/2011 Patient Education: Patient Medication Summary Completed 05/11/2011 Visit Plan: Memory loss- symptoms s lightly worsening per the patient report.. I have recommended that the pt makes sure the exelon patch is on a fatty or more muscular region on the body for better absorption.. The pt is to have an appt with Dr. Pitt to have a sleep study evaluation.. Per his report, he had one in the past and wad "borderlin" as to needing vs not needing a cpap.I want to rule out night-time hypoxia as a cause for worsening memory loss symptoms. Htn- controlled, no change in medications. 04/12/2011 Appointment: Nay Martinezl: [address] [place] [address] Other 04/12/2011 Patient Education: Patient Medication Summary Completed 04/12/2011 Patient Education: High Blood Pressure: Essential Hypertension Completed 04/12/2011 Visit Plan: Hypertension - well suzy nicole - continue with current medications, continue with no added salt diet. Pt has been encouraged to exercise daily. The pt has been advised to call the office if there are any acute concerns about change in blood pressure readings at home. Dry skin - recommend aveeno body wash and lotion or may try the eucerin lotion. No change in other medications at this time. Hyperlipidemia - pt has been counseled about appropriate diet, exercise, and need for low fat food choices. I have discussed the need for the patient to take medications as prescribed. If the patient has negative side effects from the medication, they are to CALL the office and not abruptly discontinue the medication without discussion with a practicioner in the office. We will check labs in 3-6 months for follow up on the patient's chronic medical problem and to assure normal liver response to medications. Memory loss - dementia - pt with improved and stable symptoms on current regimen, therefore, no change in treatment at this time. 01/11/2011 Appointment: Nay Martinezl: [address] [facility] [place] Other 01/11/2011 Patient Education: Patient Medication Summary Completed 01/11/2011 Referral: Cris Egan Referral Relationship Referral: Dayron Ballesteros Referral Appointment Requested Referral: Kings Valles WPtel: [phone] [id number] [place] Referral Relationship Referral: Carl Yu Referral Relationship Instructions Comment . Hypertension - wel l controlled - continue with current medications, continue with no added salt diet. Pt has been encouraged to exercise daily. The pt has been advised to call the office if there are any acute concerns about change in blood pressure readings at home. Actinic Keratosis - treated with cryotherapy x 3, pt advised on how to appropriately care for the lesion. Call if not improved after thorough healing. cryotherapy on right upper cheek Dementia - progressing - monitor symptoms - continue current medications. . Hypertension - wel l controlled - continue with current medications, continue with no added salt diet. Pt has been encouraged to exercise daily. The pt has been advised to call the office if there are any acute concerns about change in blood pressure readings at home. Knee pain - left sided - discussed with patient, he is not interested in a replacement revision at this time. He will consider his options. Dementia - progressive per his 's report - his son, however feels like his dad has been stable - continue with current medications, monitor symptoms and continue supportive care. Hyperlipidemia - pt has been counseled about appropriate diet, exercise, and need for low fat food choices. I have discussed the need for the patient to take medications as prescribed. If the patient has negative side effects from the medication, they are to CALL the office and not abruptly discontinue the medication without discussion with a practitioner in the office. We will check labs in 3-6 months for follow up on the patient's chronic medical problem and to assure normal liver response to medications. Knee pain has improv ed - pt needs to continue with use of the voltaren gel, no change in treatment at this time, he is not interested in seeing an orthopedic surgeon until his knee pain is not controlled with the voltaren gel. Dementia - symptoms stable, but the radiological health specialist of [employer] is stopping production of the 10mg pills, therefore, Omid has been given a [employer] xr starter pack and he is to START THE [employer] XR STARTER PACK ONCE HIS CURRENT SUPPLY OF N[employer]DA 10MG TWICE DAILY IS FINISHED. Omid has been given a script for a 90 day supply of the [employer] xr 28mg daily that is to start once the [employer] xr starter pack has been completed.. Knee pain has improved - pt needs to continue with use of the voltaren gel, no change in treatment at this time, he is not interested in seeing an orthopedic surgeon until his knee pain is not controlled with the voltaren gel. Dementia - symptoms stable, but the radiological health specialist of [employer] is stopping production of the 10mg pills, therefore, Omid has been given a [employer] xr starter pack and he is to START THE [employer] XR STARTER PACK ONCE HIS CURRENT SUPPLY OF N[employer] 10MG TWICE DAILY IS FINISHED. Omid has been given a script for a 90 day supply of the [employer] xr 28mg daily that is to start once the [employer] xr starter pack has been completed. HTN - stable no change in medications. PREVAR 23 . Hypertension - well controlled - kitty nue with current medications, continue with no added salt diet. Pt has been encouraged to exercise daily. The pt has been advised to call the office if there are any acute concerns about change in blood pressure readings at home. Alzheimer's Dementia - Pt with slowly progressive pattern. I have discussed with pt and family the prognosis of this disease state and the need for the family to anticipate further decline with behavior changes. Continue with current plan of treatment. use mineral oil in t he left ear - every night x 1 week then three times a week until dr. martinez sees your ear again in 2 weeks . Hypertension - well controlled - kitty nue with current medications, continue with no added salt diet. Pt has been encouraged to exercise daily. The pt has been advised to call the office if there are any acute concerns about change in blood pressure readings at home. Alzheimer's disease - progressive - monitor symptoms - continue with current medications. Weight loss - increase protein, increase fat intake. . Celllulitis-impro ed-continue treatment-return in 2 weeks for follow up . Blood in ears - re moved the dried blood shard that is residual in left ear - no other treatment changes needed. joint juice, glucosa mine - at [facility] ask about welnesse liquid Glucosamine and chondroitin. increase the omeprazole to one pill twice daily. Monday at 10AM - Dr. Yu - East across the [address] from Dr. Valles's office - in Dr. Santiago office - Appt with Dr. Yu. . Hypertension - well controlled - kitty nue with current medications, continue with no added salt diet. Pt has been encouraged to exercise daily. The pt has been advised to call the office if there are any acute concerns about change in blood pressure readings at home. Check PT/INR this week Skin lesion on left cheek. -needs to be seen by Dr. Yu - Omid will need this lesion surgically removed. . Memory loss- sympt oms slightly worsening per the patient report.. I have recommended that the pt makes sure the exelon patch is on a fatty or more muscular region on the body for better absorption.. The pt is to have an appt with Dr. Pitt to have a sleep study evaluation.. Per his report, he had one in the past and wad "borderlin" as to needing vs not needing a cpap.I want to rule out night-time hypoxia as a cause for worsening memory loss symptoms. Htn- controlled, no change in medications. . Subdural hematoma- recent fall-decreased in size with tiny acute component-plan to repeat CT in 2 weeks Low back bakx-umywghvyika-VY joint Injection today in the office - Pt was given post - injection instructions. The pt has been advised to use antiinflammatories post injection today, ice to the injected site, call if redness, warmth, or increased pain occurs at the site of injection. . Hypertension - wel l controlled - continue with current medications, continue with no added salt diet. Pt has been encouraged to exercise daily. The pt has been advised to call the office if there are any acute concerns about change in blood pressure readings at home. Hyperlipidemia - pt has been counseled about appropriate diet, exercise, and need for low fat food choices. I have discussed the need for the patient to take medications as prescribed. If the patient has negative side effects from the medication, they are to CALL the office and not abruptly discontinue the medication without discussion with a practicioner in the office. We will check labs in 3-6 months for follow up on the patient's chronic medical problem and to assure normal liver response to medications. Alzheimer's Dementia - Pt with slowly progressive pattern. I have discussed with pt and family the prognosis of this disease state and the need for the family to anticipate further decline with behavior changes. Continue with current plan of treatment. use 2 ML of mineral oil or olive oil into the ears every night x 10 days - we will see you back in clinic in 10 days to take another look at the ears to see if the blood has improved and if there are any sores in the ear from your itching of the ear canals. . Nasal congestion - rx [facility]on[facility] - rx was called to [facility]. Blood in ears - due to pt using qtips aggressively - recommended pt to use mineral oil in ears nightly x 10 days - return to clinic in 10 days for my evaluation to see if there are any residual lesions in his ears once the dried blood is out of the ear canals. . Constipation -disc ussed with pt - start on power pudding - and patient may need to have Linzess if his constipation does not improve. Hypotension - discussed with the patient - we may need to have his lisinopril dose decreased from 20mg to 10mg - will have the staff at the facility check his blood pressure twice daily x 3 days and call with his pressures on Monday morning. . Hypertension - wel l controlled - continue with current medications, continue with no added salt diet. Pt has been encouraged to exercise daily. The pt has been advised to call the office if there are any acute concerns about change in blood pressure readings at home. Knee pain - Pt desires to have his knee operated on at [facility], I have placed a phone call to Dr. Ballesteros - waiting on a call back . Hypertension - we ll controlled - continue with current medications, continue with no added salt diet. Pt has been encouraged to exercise daily. The pt has been advised to call the office if there are any acute concerns about change in blood pressure readings at home. Abdominal pain- STOP IRON - WE WILL CHECK A CBC TODAY AND AGAIN IKnee pain- uncontrolled- but improving, recommend watchful waiting and to use FLECTOR PATCH, 1/4 of a patch and change twice daily.. Call if the pain worsens. ABOUT 2 MONTHS TO SEE IF STOPPING THE IRON HAS CAUSED ANY ADVERSE EFFECTS. Urine checked today. THICK COATING ON THE TONGUE - WILL ORDER A SWISH AND SWALLOW FOR YEAST - THIS MAY BE PART OF THE CAUSE OF THE ABNORMAL TASTE. UTI - pt with positive urinalysis - culture sent if appropriate. Antibiotic electronically prescribed to pt's pharmacy of choice. Pt to call if symptoms do not improve. RETURN TO CLINIC ON MONDAY FOR A COUMADIN CHECK OF BLOOD. . Hypertension - wel l controlled - continue with current medications, continue with no added salt diet. Pt has been encouraged to exercise daily. The pt has been advised to call the office if there are any acute concerns about change in blood pressure readings at home. Joint Injection - Pt was given post - injection instructions. The pt has been advised to use anti-inflammatories post injection today, ice to the injected site, call if redness, warmth, or increased pain occurs at the site of injection. Dysuria - check ua today. Alzheimer's Dementia - Pt with slowly progressive pattern. I have discussed with pt and family the prognosis of this disease state and the need for the family to anticipate further decline with behavior changes. Continue with current plan of treatment. . Fall-sudden onset of right lower extremity weakness-Dr Martinez in to evaluate patient-plan to admit for observation and further work up which includes a STAT CT of the head and labs. Patient and verbalize understanding. . Hypertension - wel l controlled - continue with current medications, continue with no added salt diet. Pt has been encouraged to exercise daily. The pt has been advised to call the office if there are any acute concerns about change in blood pressure readings at home. Alzheimer's Dementia - Pt with slowly progressive pattern. I have discussed with pt and family the prognosis of this disease state and the need for the family to anticipate further decline with behavior changes. Continue with current plan of treatment. . Hypertension - wel l controlled - continue with current medications, continue with no added salt diet. Pt has been encouraged to exercise daily. The pt has been advised to call the office if there are any acute concerns about change in blood pressure readings at home. OA - knee pain improved post-operatively - continue with current treatment, therapy, etc. Chronic Anticoagulant use - Pt has been counseled about the anticoagulant, need for serial monitoring, and need for the pt to alert the physician as to any new bruising, or acute bleeding. Therapeutic goal for INR is between 2.0 and 3.5. . Lower leg pain - r x for voltaren gel to be used on right knee four times daily to alleviate pain in knee. Pt to use walker - RX for rolator walker. . Hypertension - we ll controlled - continue with current medications, continue with no added salt diet. Pt has been encouraged to exercise daily. The pt has been advised to call the office if there are any acute concerns about change in blood pressure readings at home. Dry skin - recommend aveeno body wash and lotion or may try the eucerin lotion. No change in other medications at this time. Hyperlipidemia - pt has been counseled about appropriate diet, exercise, and need for low fat food choices. I have discussed the need for the patient to take medications as prescribed. If the patient has negative side effects from the medication, they are to CALL the office and not abruptly discontinue the medication without discussion with a practicioner in the office. We will check labs in 3-6 months for follow up on the patient's chronic medical problem and to assure normal liver response to medications. Memory loss - dementia - pt with improved and stable symptoms on current regimen, therefore, no change in treatment at this time. . Hypertension - wel l controlled - continue with current medications, continue with no added salt diet. Pt has been encouraged to exercise daily. The pt has been advised to call the office if there are any acute concerns about change in blood pressure readings at home. Alzheimer's Dementia - Pt with slowly progressive pattern. I have discussed with pt and family the prognosis of this disease state and the need for the family to anticipate further decline with behavior changes. Continue with current plan of treatment. Hyperlipidemia - pt has been counseled about appropriate diet, exercise, and need for low fat food choices. I have discussed the need for the patient to take medications as prescribed. If the patient has negative side effects from the medication, they are to CALL the office and not abruptly discontinue the medication without discussion with a practitioner in the office. We will check labs in 3-6 months for follow up on the patient's chronic medical problem and to assure normal liver response to medications. . Blood in ears - th is has not completely resolved - I have recommended pt to continue to use mineral oil in ears nightly x 10 days - RTC in 2 wks . Blood in ears - th is has not completely resolved - I have recommended pt to continue to use mineral oil in ears nightly x 10 days - RTC in 2 wks . Knee pain- uncontr olled- but improving, recommend watchful waiting and to use FLECTOR PATCH, 1/4 of a patch and change twice daily.. Call if the pain worsens. STOP THE 5-FU START BACTROBAN CREAM TWICE DAILY . Cellulitis - start oral abx as directed, return to clinic as previously directed, call for acute change in symptoms, worsening redness, warmth, discharge. Stop the 5-FU . Dried bloody debri s in left ear - removed with alligator forceps, ear currette - pt to use mineral oil in the ear. . Hypertension - wel l controlled - continue with current medications, continue with no added salt diet. Pt has been encouraged to exercise daily. The pt has been advised to call the office if there are any acute concerns about change in blood pressure readings at home. Hyperlipidemia - pt has been counseled about appropriate diet, exercise, and need for low fat food choices. I have discussed the need for the patient to take medications as prescribed. If the patient has negative side effects from the medication, they are to CALL the office and not abruptly discontinue the medication without discussion with a practitioner in the office. We will check labs in 3-6 months for follow up on the patient's chronic medical problem and to assure normal liver response to medications. Alzheimer's Dementia - Pt with slowly progressive pattern. I have discussed with pt and family the prognosis of this disease state and the need for the family to anticipate further decline with behavior changes. Continue with current plan of treatment. COLONOSCOPY-DR GRACE ON-WILL DISCUSS WITH DR MARTINEZ . Medicare Exam - today we discussed the patients past history, immunizations, preventative exams/evaluations - colonoscopy, fecal occult blood testing, routine labs for renal function, glucose, cholesterol, osteoporosis evaluations, cardiovascular testing and cancer screenings. We have also discussed mental health and the signs/symptoms of depression. The patient was advised of home safety evaluations and the need to make sure that as the aging process continues, we need to be aware of different ways to make the home a safer place to reside. The patient has also been counseled that exercise is necessary - and of utmost importance as we age to help decrease fall risk and to maintain independence in the home. . Hypertension - wel l controlled - continue with current medications, continue with no added salt diet. Pt has been encouraged to exercise daily. The pt has been advised to call the office if there are any acute concerns about change in blood pressure readings at home. Subdural hematoma- plan a ct scan of his head in 6 weeks. We will fax the ct scan to Dr. Kellogg at . Anticoagulation- recommended pt to continue with lovenox, will check INR on monday of this week. . Hypertension - wel l controlled - continue with current medications, continue with no added salt diet. Pt has been encouraged to exercise daily. The pt has been advised to call the office if there are any acute concerns about change in blood pressure readings at home. Alzheimer's Dementia - Pt with slowly progressive pattern. I have discussed with pt and family the prognosis of this disease state and the need for the family to anticipate further decline with behavior changes. Continue with current plan of treatment. Renal ultrasound on 07/27/16 at 12noon. Hypertension - well controlled - continue with current medications, continue with no added salt diet. Pt has been encouraged to exercise daily. The pt has been advised to call the office if there are any acute concerns about change in blood pressure readings at home. Alzheimer's Dementia - Pt with slowly progressive pattern. I have discussed with pt and family the prognosis of this disease state and the need for the family to anticipate further decline with behavior changes. Continue with current plan of treatment. Weakness - Knee pain - recommended therapy with john hansen - will get this set up for patient. Renal cyst - ultrasound ordered for follow up on cyst - for tomorrow. . Hypertension - wel l controlled - continue with current medications, continue with no added salt diet. Pt has been encouraged to exercise daily. The pt has been advised to call the office if there are any acute concerns about change in blood pressure readings at home. Alzheimer's Dementia - Pt with slowly progressive pattern. I have discussed with pt and family the prognosis of this disease state and the need for the family to anticipate further decline with behavior changes. Continue with current plan of treatment. Pt noticed some decline in his memory after his subdural hematoma and the neurosurgery that he endured. Pt will be changed to the higher dose of exelon 13.3mg patches to be changed every days. Try tiger balm to lo w back. . Low back pain- the patient was instruc devon in appropriate posture, need for weight loss to alleviate abdominal obesity that is worsening the patient's back pain.. The pt is to use prn antiinflammatories to manage acute pain. The patient is to call the office if the pain is worsening or does not improve. Will send paperwork for back brace. HOLD OMEPRAOZLE WHIL E ON THE NEXIUM SAMPLES. TAKE THE NEXIUM 1 TAB DAILY UNTIL YOU RUN OUT, THEN RESTART YOUR OMEPRAZOLE.. Esophageal Reflux - the patient has been counseled against excessive intake of caffiene, spicy foods, peppermint, and cinnamon - all of which can exacerbate esophageal reflux. The patient is to take medications as prescribed and call the office if the symptoms are not improving. Cellulitis-almost completely healed-continue current treatement. joint juice, glucosa mine - at [facility] ask about welnesse liquid Glucosamine and chondroitin. increase the omeprazole to one pill twice daily. Monday at 10AM - Dr. Yu - East across [place] from Dr. Valles's office - in Dr. Santiago office - Appt with Dr. Yu. . Hypertension - well controlled - kitty nue with current medications, continue with no added salt diet. Pt has been encouraged to exercise daily. The pt has been advised to call the office if there are any acute concerns about change in blood pressure readings at home. Check PT/INR this week Skin lesion on left cheek. -needs to be seen by Dr. Yu - Omid will need this lesion surgically removed. . Hypertension - wel l controlled - continue with current medications, continue with no added salt diet. Pt has been encouraged to exercise daily. The pt has been advised to call the office if there are any acute concerns about change in blood pressure readings at home. Alzheimer's Dementia - Pt with slowly progressive pattern. I have discussed with pt and family the prognosis of this disease state and the need for the family to anticipate further decline with behavior changes. Continue with current plan of treatment. Skin lesion on mandaen - pt to use flurouracil on lesions on mandaen. OA of knees - pt to try voltaren gel. . Wound Instructions - Pt was instruced to keep the wound clean, wash with antibacterial soap, use triple antibiotic ointment, call if redness, pustular drainage, or any other acute conerns. discussed colonoscop y -patient not interested . Medicare Exam - today we discussed the patients past history, immunizations, preventative exams/evaluations - colonoscopy, fecal occult blood testing, routine labs for renal function, glucose, cholesterol, osteoporosis evaluations, cardiovascular testing and cancer screenings. We have also discussed mental health and the signs/symptoms of depression. The patient was advised of home safety evaluations and the need to make sure that as the aging process continues, we need to be aware of different ways to make the home a safer place to reside. The patient has also been counseled that exercise is necessary - and of utmost importance as we age to help decrease fall risk and to maintain independence in the home. Today we discussed the need for the patient to create paperwork for Advanced directives as well as for the patient to provide this office with a copy of her [employer] paperwork for health care surrogate. . Hypertension - wel l controlled - continue with current medications, continue with no added salt diet. Pt has been encouraged to exercise daily. The pt has been advised to call the office if there are any acute concerns about change in blood pressure readings at home. Alzheimer's Dementia - Pt with slowly progressive pattern. I have discussed with pt and family the prognosis of this disease state and the need for the family to anticipate further decline with behavior changes. Continue with current plan of treatment. Peripheral weakness - continue with physical therapy - right leg continues to be weak. try casey candy trung ws or casey cookies to help decrease the stomach upset/gas. . Hypertension - well controlled - kitty nue with current medications, continue with no added salt diet. Pt has been encouraged to exercise daily. The pt has been advised to call the office if there are any acute concerns about change in blood pressure readings at home. Chronic anticoagulation for mechanical valve. Alzheimer's Dementia - Pt with slowly progressive pattern. I have discussed with pt and family the prognosis of this disease state and the need for the family to anticipate further decline with behavior changes. Continue with current plan of treatment. use mineral oil in t he left ear - every night x 1 week then three times a week until dr. martinez sees your ear again in 2 weeks . Hyperlipidemia - extremely well contro lled with chol/hdl ratio of 1.7 - therefore with his symptoms of leg pain , muscle weakness - I recommended that his dose of lipitor decrease, so I placed a phone call to Dr. Egan about decreasing the dose of lipitor - he is in agreement to decreasing the dose from 40mg to 20mg - monitor symptoms and labs - we will call pt with this new medication change. Hypertension - well controlled - continue with current medications, continue with no added salt diet. Pt has been encouraged to exercise daily. The pt has been advised to call the office if there are any acute concerns about change in blood pressure readings at home. Alzheimer's disease - progressive - monitor symptoms - continue with current medications. Weight loss - increase protein, increase fat intake. . Hypertension - wel l controlled - continue with current medications, continue with no added salt diet. Pt has been encouraged to exercise daily. The pt has been advised to call the office if there are any acute concerns about change in blood pressure readings at home. Dementia - mixed type - continue with current management - Continue with cerefolin NAC - this seems to have helped to stabilize his memory loss. stop using the effud ex on the right side of face (sideburn region) - allow for about 2 weeks worth of healing - if it does not heal, will need to see a surgeon about potential removal of the tissue. . Hypertension - well controlled - kitty nue with current medications, continue with no added salt diet. Pt has been encouraged to exercise daily. The pt has been advised to call the office if there are any acute concerns about change in blood pressure readings at home. Skin Cancer on right side of face - recommended pt to stop use of Efudex on face, monitor symptoms, if not improving, will need to consider removal by general surgeon. Alzheimer's Dementia - Pt with slowly progressive pattern. I have discussed with pt and family the prognosis of this disease state and the need for the family to anticipate further decline with behavior changes. Continue with current plan of treatment. OA - with significant knee pain - referral to Dr. Ballesteros per patient's request - will hopefully be able to use Synvisc for knee. . Constipation - not optimally treated - recommended increase in dose of power pudding - call if not improving. Hypertension - well controlled - continue with current medications, continue with no added salt diet. Pt has been encouraged to exercise daily. The pt has been advised to call the office if there are any acute concerns about change in blood pressure readings at home. . Hypertension - wel l controlled - continue with current medications, continue with no added salt diet. Pt has been encouraged to exercise daily. The pt has been advised to call the office if there are any acute concerns about change in blood pressure readings at home. Alzheimer's Dementia - Pt with slowly progressive pattern. I have discussed with pt and family the prognosis of this disease state and the need for the family to anticipate further decline with behavior changes. Continue with current plan of treatment. WEIGHT NEXT WEEK, CA LL INTO THE OFFICE WITH THE WEIGHT.. Alzheimer's Dementia - Pt with slowly progressive pattern. I have discussed with pt and family the prognosis of this disease state and the need for the family to anticipate further decline with behavior changes. Continue with current plan of treatment. Weight loss - discussed the need for Vidal to not loose more weight. He reports that he has actually gained weight in the past few weeks since moving to [facility]. Knee pain - has improved with flector patches, no change in current treatment. HTN - controlled - no change in medications. I have encouraged Omid to check his blood pressures occasionally at home and bring in his list at his next office visit. . Hypertension - wel l controlled - continue with current medications, continue with no added salt diet. Pt has been encouraged to exercise daily. The pt has been advised to call the office if there are any acute concerns about change in blood pressure readings at home. Bronchitis - acute case of bronchitis identified. Pt has been given antibiotics, breathing treatments as appropriate, and pt has been instructed to call if symptoms are not improved, or if symptoms acutely worsen. Cough - rx for phenergan with codeine for cough at bedtime and mucinex for daytime use to thin mucus. Wound Instructions - Pt was instruced to keep the wound clean, wash with antibacterial soap, use triple antibiotic ointment, call if redness, pustular drainage, or any other acute conerns.
--- OUTSIDE RECORDS SUMMARY | 2019-07-11 12:37 | XMS REPORT | CCD ---
Author Author Omid Martinez Organization Nay Martinez MD, [facility] Address [address] [place] [address] Phone Care Team Providers Care Stone Rigger Name Role Phone Nay Martinez PP Unavailable CCM Unavailable Summary Purpose Interface Exchange Insurance Providers Payer name Policy type / Coverage type Covered alliance party ID Effective Begin Date Effective End Date WPS Medicare Part B Medicare Part B [id number] Unknown [facility] icare Part B [id number] Un known Family history Mother Diagnosis Age At Onset No Family Disease Entered N/A Father Diagnosis Age At Onset No Family Disease Entered N/A Brother Diagnosis Age At Onset No Family Disease Entered N/A Social History Social History Element Codes Description Effective Dates Number of children Unknown 3 sons 02/14/2018 Living arrangements Unknown Assisted Living Moved in August 2011 to assisted living facility [facility]. 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 04/11/[address]: 204895781 Nonsmoker 04/11/2011 Has the patient ever used [...] ICD-9: 530.81 Active 08/22/2013 Unknown Cellulitis of evangelical ICD-9: 682.0 Active 07/29/2013 Unknown ACUTE BRONCHITIS [...] reflux ICD-9: 530.81 08/22/2013 Active Cellulitis of evangelical ICD-9: 682.0 07/29/2013 Active ACUTE BRONCHITIS ICD-9: [...] Reli ef 50 mcg/actuation nasal spray,suspension RxNorm: 8352302 1 Thurman NASAL BID 06/26/2018 07/25/2018 Inactive Namenda 10 mg tablet RxNorm: 775764 1 Tablet(s) PO BID 02/07/2018 09/04/2018 Active omeprazole 20 mg cap mino,delayed release RxNorm: 281229 1 Capsule(s) PO BID 02/07/2018 09/04/2018 Ac tive omeprazole 20 mg cap mino,delayed release RxNorm: 448467 1 Capsule(s) PO BID 01/25/2018 02/06/2018 In active ropinirole 1 mg tablet RxNorm: 489087 1 Tablet(s) PO daily 01/17/2018 07/10/2019 Active Zyrtec 10 mg tablet RxNorm: 0739365 1 Tablet(s) PO daily 11/08/2017 06/05/2018 Inactive atorvastatin 20 mg t ablet RxNorm: 029516 1 Tablet(s) PO daily 08/09/2017 03/06/2018 Inactive Namenda 10 mg tablet RxNorm: 496578 1 Tablet(s) PO BID 07/24/2017 10/21/2017 Inactive Insurance denied Namenda XR 28mg Namenda 10 mg tablet RxNorm: 119678 1 Tablet(s) PO BID 07/24/2017 07/23/2017 Inactive Insurance denied Namenda XR 28mg Cerefolin NAC 600 mg -2 mg-6 mg tablet RxNorm: TAKE ONE CAPLET BY MOUTH ON E TIME DAILY 07/11/2017 07/05/2018 Inactive Aricept 10 mg tablet RxNorm: 869845 1 Tablet(s) PO daily 06/01/2017 05/31/2017 Inactive Aricept 10 mg tablet RxNorm: 257507 1 Tablet(s) PO daily 06/01/2017 08/28/2018 Inactive Cerefolin NAC 600 mg -2 mg-6 mg tablet RxNorm: TAKE ONE TABLET BY MOUTH ON E TIME DAILY 07/06/2016 06/30/2017 Inactive fluorouracil 5 % top ical cream RxNorm: 018833 1 Application TOP luz ly use daily x 1 week, then stop use, let tissue heal x1wk, if still dry patchy, then restart the medication x 1 week 01/29/2016 02/07/2016 Inactive omeprazole 20 mg cap mino,delayed release RxNorm: 015143 1 Capsule(s) PO BID 01/20/2015 06/18/2015 In active Bactroban 2 % topica l cream RxNorm: 418930 1 Application TOP BID as needed 12/18/2014 03/30/2015 In active Cerefolin NAC 600 mg -2 mg-6 mg tablet RxNorm: 1 Tablet(s) PO daily 07/01/2014 06/25/2015 Inactive [SAVINGS FOR NON-COVERED DRUGS -- BIN:00 1203, PCN: [id number], Group: XXXXX, ID# [id number], Questions: . THIS IS NOT INSURANCE.] Kenalog 40 mg/mL tess pension for injection RxNorm: 4257446 Milliliter(s) Inj 04/01/2014 04/01/2014 In active Namenda XR 7 mg-14 m g-21 mg-28 mg capsule,sprinkle,ER 24hr,dose pack RxNorm: 328733 1 Capsule(s) PO daily 10/15/2013 11/13/2013 Inactive Namenda XR 28 mg cap mino sprinkle,ER 24hr RxNorm: 128806 1 Capsule(s) PO daily 10/15/2013 07/23/2017 In active Bactrim DS 800 mg-16 0 mg tablet RxNorm: 613913 1/2 Tablet(s) PO dale y 10/15/2013 03/30/2015 In active Voltaren 1 % topical gel RxNorm: 989491 4 Gram(s) TOP QID 09/11/2013 01/08/2014 Inactive dispense 5 tubes Bactroban 2 % topica l cream RxNorm: 134947 1 Application TOP BID 07/29/2013 08/04/2013 Inactive ciprofloxacin 500 mg tablet RxNorm: 276216 1 Tablet(s) PO BID 07/29/2013 08/04/2013 Inactive fluorouracil 5 % top ical cream RxNorm: 374253 1 Application TOP luz ly use daily x 1 week, then stop use, let tissue heal x1wk, if still dry patchy, then restart the medication x 1 week 06/25/2013 07/04/2013 Inactive levofloxacin 500 mg tablet RxNorm: 596295 1 Tablet(s) PO daily 03/26/2013 03/30/2013 Inactive Cerefolin NAC 600 mg -2 mg-6 mg tablet RxNorm: 1 Tablet(s) PO daily 11/05/2012 10/30/2013 Inactive Kenalog 40 mg/mL Tess p for Injection RxNorm: 2530476 1 Milliliter(s) Inj 06/29/2012 06/29/2012 In active Exelon 9.5 mg/24 ricki r Transderm 24 hr Patch RxNorm: 425116 Patch 24 hr TD APPLY 1 PATCH DAILY DIRECTED 04/25/2012 08/20/2012 Inactive omeprazole 20 mg cap mino,delayed release RxNorm: 034326 1 Capsule(s) PO daily 04/09/2012 04/03/2013 In active omeprazole 20 mg cap mino,delayed release RxNorm: 604547 Capsule(s) PO TAKE 1 CAPSULE BY MOUTH EVERY DAY 04/09/2012 01/19/2015 Inactive warfarin 4 mg tablet RxNorm: 330141 1 Tablet(s) PO 11/28/2011 11/21/2012 Inactive TAKE 1 TABLET BY MOUTH DAILY Cerefolin NAC 600 mg -2 mg-6 mg tablet RxNorm: 1 Tablet(s) PO daily 11/28/2011 11/04/2012 Inactive warfarin 4 mg tablet RxNorm: 872126 Tablet(s) PO 08/07/2011 11/27/2011 Inactive TAKE 1 TABLET BY MOUTH DAILY Flector 1.3 % Adhesi ve Patch RxNorm: 486950 1 Application TOP BID 07/12/2011 02/06/2012 Inactive levofloxacin 500 mg Tab RxNorm: 726244 1 Tablet(s) PO daily 07/12/2011 07/16/2011 Inactive nystatin 100,000 uni t/mL Oral Susp RxNorm: 705257 3 Milliliter(s) BUCC TID 07/12/2011 07/21/2011 In active lisinopril 20 mg Tab RxNorm: 413334 1 Tablet(s) PO daily 04/12/2011 04/05/2012 Inactive TAKE ONE TABLET BY MOUTH DAILY;Patient requests 90 day supply omeprazole 20 mg cap mino,delayed release RxNorm: 383740 1 Capsule(s) PO daily 04/12/2011 04/05/2012 In active Namenda 10 mg Tab RxNorm: 468482 1 Tablet(s) PO BID 04/12/2011 04/05/2012 Inactive metoprolol succinate ER 50 mg 24 hr Tab RxNorm: 355904 1 Tablet(s) PO daily 04/12/2011 04/05/2012 In active ropinirole 1 mg Tab RxNorm: 486803 1 Tablet(s) PO daily 04/12/2011 04/05/2012 Inactive TAKE 1 TABLET BY MOUTH EVERY NIGHT AT BE DTIME;Patient requests 90 day supply Bactrim DS 800 mg-16 0 mg Tab RxNorm: 933531 1/2 Tablet(s) PO daily 04/12/2011 04/05/2012 Inactive Exelon 9.5 mg/24 ricki r Transderm 24 hr Patch RxNorm: 696241 1 Patch TD daily 04/12/2011 04/05/2012 In active melatonin 3 mg Tab RxNorm: 451102 1 Tablet(s) PO QHS 04/11/2011 No Stop Date Active Fish Oil 900 mg-1,40 0 mg Cap, Delayed Release RxNorm: 1 Capsule(s) PO BID 04/11/2011 10/27/2015 In active Tylenol Arthritis 65 0 mg Tab RxNorm: 8664496 2 Tablet(s) PO QAM 04/11/2011 10/27/2015 Inactive Bactrim DS 800 mg-16 0 mg Tab RxNorm: 695894 1/2 Tablet(s) PO daily 04/11/2011 04/11/2011 Inactive lisinopril 20 mg Tab RxNorm: 766618 Tablet(s) PO 04/07/2011 04/11/2011 Inactive TAKE ONE TABLET BY MOUTH DAILY;Patient requests 90 day supply ropinirole 1 mg Tab RxNorm: 200678 Tablet(s) PO 04/07/2011 04/11/2011 Inactive TAKE 1 TABLET BY MOUTH EVERY NIGHT AT BEDTIME;Patient requests 90 day supply lisinopril 20 mg Tab RxNorm: 173250 1 Tablet(s) PO daily 04/06/2011 04/06/2011 Inactive ropinirole 1 mg Tab RxNorm: 186049 1 Tablet(s) PO daily 04/06/2011 04/06/2011 Inactive Influenza Virus Vacc ine 0.5 mL RxNorm: IM 01/11/2011 01/11/2011 Inactive Osteo Bi-Flex Triple Strength RxNorm: 2 PO daily No S tart Date Active Bactrim DS 800 mg-16 0 mg tablet RxNorm: 051987 1/2 Tablet(s) PO dale y No Start Date Active isosorbide mononitra te ER 30 mg tablet,extended release 24 hr RxNorm: 151961 1 Tablet(s) PO daily No Start Date Active Vitamin B-12 5,000 m cg/mL sublingual drops RxNorm: 2816313 1 Milliliter(s) SL d aily No Start Date Active Tylenol Extra Streng th 500 mg tablet RxNorm: 374046 2 Tablet(s) PO BID No Start Date Active aspirin 81 mg Tab, D elayed Release RxNorm: 461072 1 Tablet(s) PO daily No Start Date Active warfarin 4 mg tablet RxNorm: 955172 1 Tablet(s) PO daily No Start Date Active Centrum Silver Oral RxNorm: Oral No Start Date Active Fish Oil 300 mg-1,00 0 mg capsule RxNorm: 341127 1 Capsule(s) PO daily No Start Date Active Calcium 500 + D (D3) Oral RxNorm: Oral No Start D ate Active metoprolol succinate ER 50 mg tablet,extended release 24 hr RxNorm: 768770 1 Tablet(s) PO daily No Start Date Active Cerefolin NAC 600 mg -2 mg-6 mg tablet RxNorm: 1 Tablet(s) PO daily No Start Date 11/27/2011 Inactive Lipitor 40 mg tablet RxNorm: 046461 1 Tablet(s) PO daily ordered by dr broussard No Start Date 08/08/2017 Inactive lisinopril 20 mg Tab RxNorm: 286928 1 Tablet(s) PO daily No Start Date 04/05/2011 Inactive hydrocodone-acetamin ophen 5 mg-325 mg tablet RxNorm: 3796855 1 Tablet(s) PO BID No Start Date 01/19/2015 Inactive omeprazole 20 mg Cap , Delayed Release RxNorm: 048820 1 Capsule(s) PO daily No Start Date 04/11/2011 Inactive metoprolol succinate ER 50 mg 24 hr Tab RxNorm: 135268 1 Tablet(s) PO daily No Start Date 04/11/2011 Inactive Exelon 9.5 mg/24 ricki r Transderm 24 hr Patch RxNorm: 340889 1 Patch TD daily No Start Date 04/11/2011 Inactive warfarin 4 mg Tab RxNorm: 527140 1 Tablet(s) PO daily No Start Date 08/06/2011 Inactive multivitamin Oral RxNorm: Oral No Start Date 07/26/2016 Inactive melatonin 3 mg Tab RxNorm: 826957 Oral No Start Date 04/10/2011 Inactive lisinopril 20 mg tablet RxNorm: 465379 1 Tablet(s) PO daily No Start Date 08/28/2018 Inactive ropinirole 1 mg tablet RxNorm: 967673 1 Tablet(s) PO daily No Start Date 01/16/2018 Inactive iron 134 mg (27 mg i iron) Tab RxNorm: 547967 1 Tablet(s) PO daily No Start Date 10/26/2015 Inactive Fish Oil 900 mg-1,40 0 mg Cap, Delayed Release RxNorm: 1 Capsule(s) PO daily No Start Date 04/10/2011 Inactive Bactrim DS 800 mg-16 0 mg Tab RxNorm: 344050 Oral No S tart Date 04/10/2011 Inactive Exelon 13.3 mg/24 ho ur Transderm 24 hr Patch RxNorm: 3891029 TD No Start Date 08/29/2018 Inactive metoprolol tartrate 50 mg Tab RxNorm: 744234 1 Tablet(s) PO daily No Start Date 04/10/2011 Inactive Tylenol Arthritis 65 0 mg Tab RxNorm: 3519766 Oral No Start Date 04/10/2011 Inactive Namenda 10 mg Tab RxNorm: 935879 1 Tablet(s) PO BID No Start Date 04/11/2011 Inactive ropinirole 1 mg Tab RxNorm: 469372 1 Tablet(s) PO daily No Start Date 04/05/2011 Inactive Medication Administered Medication Codes Instruc tions Start Date Status Kenalog 40 mg/mL suspension for injection RxNorm: 5775084 Milliliter 04/01/2014 No longer Active Kenalog 40 mg/mL Susp for Injection RxNorm: 3471499 1Milliliter 06/29/2012 N o longer Active Influenza [...] Result Date Metabolic Ord15 NA 139 mEq/L 08/30/2018 Metabolic [...] Ord15 CALCIUM 8.7 mg/dL 08/30/2018 Comp Metabolic Rcv140 NA 138 mEq/L 08/29/2018 Comp Metabolic Ido348 K 6.2 Result Verified By Repeat Analysis mEq/L 08/29/2018 Comp Metabolic Wov409 CL 111 mEq/L 08/29/2018 Comp Metabolic Doe803 CO2 15.0 mEq/L 08/29/2018 Comp Metabolic Tyc831 AN ION GAP 18 08/29/2018 Comp Metabolic Nrh176 GL UCOSE 98 mg/dL 08/29/2018 Comp Metabolic Lcd775 Cr eat 2.3 mg/dL 08/29/2018 Comp Metabolic Xnd552 eG FR 29 ml/min/1.73m2 08/29 Comp Metabolic Htm863 BUN 58 mg/dL 08/29/2018 Comp Metabolic Ajx622 B/ C Ratio 25.1 Ratio 08/29/2018 Comp Metabolic Usq107 CA LCIUM 9.1 mg/dL 08/29/2018 Comp Metabolic Uio407 AL K PHOS 36 U/L 08/29/2018 Comp Metabolic Erf159 T(SGOT) 64 U/L 08/29/2018 Comp Metabolic Luk549 AL T(SGPT) 39 U/L 08/29/2018 Comp Metabolic Syl281 BI LI T 1.0 mg/dL 08/29/2018 Comp Metabolic Zwi649 AL BUMIN 3.9 g/dL 08/29/2018 Comp Metabolic Ujl670 TP RO 5.8 g/dL 08/29/2018 Comp Metabolic Dfr040 GL OB 2.0 g/dL 08/29/2018 Comp Metabolic Tzl946 A/ G Ratio 2.0 Ratio 08/29/2018 Comp Metabolic Qsk351 Os mo 292 mOsmo 08/29/2018 Pt Pxd2313 PT 30.6 seconds 08/29/2018 Pt Zfq1475 INR 3.0 08/29/2018 Pt Sqb1294 Low Intensity - 1.5-2.0 08/29/2018 Pt Lyr1988 Mod intensity - 2.0-3.0 08/29/2018 Pt Dqp1317 Hi intensity - 3.0-4.0 08/29/2018 Comp Metabolic Fwb695 NA 140 mEq/L 08/27/2018 Comp Metabolic Evb318 K 6.1 mEq/L 08/27/2018 Comp Metabolic Ueu261 CL 110 mEq/L 08/27/2018 Comp Metabolic Jvz441 CO2 22.0 mEq/L 08/27/2018 Comp Metabolic Bct133 AN ION GAP 14 08/27/2018 Comp Metabolic Eki687 GL UCOSE 77 mg/dL 08/27/2018 Comp Metabolic Ihl947 Cr eat 2.3 mg/dL 08/27/2018 Comp Metabolic Oxy107 eG FR 29 ml/min/1.73m2 08/27 Comp Metabolic Whu930 BUN 58 mg/dL 08/27/2018 Comp Metabolic Yoo409 B/ C Ratio 25.0 Ratio 08/27/2018 Comp Metabolic Ope382 CA LCIUM 9.2 mg/dL 08/27/2018 Comp Metabolic Drq816 AL K PHOS 41 U/L 08/27/2018 Comp Metabolic Pmc877 T(SGOT) 62 U/L 08/27/2018 Comp Metabolic Urh731 AL T(SGPT) 40 U/L 08/27/2018 Comp Metabolic Qtn505 BI LI T 1.0 mg/dL 08/27/2018 Comp Metabolic Lqj329 AL BUMIN 4.0 g/dL 08/27/2018 Comp Metabolic Yie197 TP RO 5.9 g/dL 08/27/2018 Comp Metabolic Xba535 GL OB 1.9 g/dL 08/27/2018 Comp Metabolic Mhb866 A/ G Ratio 2.1 Ratio 08/27/2018 Comp Metabolic Pqf511 Os mo 294 mOsmo 08/27/2018 Lipid Ord30 CHOL 101 mg/dL 08/27/2018 Lipid Ord30 HDL 56.0 mg/dl 08/27/2018 Lipid Ord30 TRIG 97 mg/dL 08/27/2018 Lipid Ord30 LDL 26 mg/dL 08/27/2018 Lipid Ord30 C/HDL 1.8 Ratio 08/27/2018 Pt Fyf9222 PT 59.2 Result Verified By Repeat Analysis seconds 08/27/2018 Pt Dbt1794 INR 6.8 Result Verified By Repeat Analysis 08/27/2018 Pt Een8139 Low Intensity - 1.5-2.0 08/27/2018 Pt Ypy0430 Mod intensity - 2.0-3.0 08/27/2018 Pt Nmq2943 Hi intensity - 3.0-4.0 08/27/2018 Comp Metabolic Hud435 NA 143 mEq/L 08/08/2017 Comp Metabolic Zmi772 K 5.3 mEq/L 08/08/2017 Comp Metabolic Ftn952 CL 112 mEq/L 08/08/2017 Comp Metabolic Jbv238 CO2 27.0 mEq/L 08/08/2017 Comp Metabolic Nps425 AN ION GAP 9 08/08/2017 Comp Metabolic Xim062 GL UCOSE 88 mg/dL 08/08/2017 Comp Metabolic Euj811 Cr eat 1.1 mg/dL 08/08/2017 Comp Metabolic Hfk669 eG FR 71 ml/min/1.73m2 08/08 Comp Metabolic Sql986 BUN 26 mg/dL 08/08/2017 Comp Metabolic Tkx103 B/ C Ratio 24.5 Ratio 08/08/2017 Comp Metabolic Vwm859 CA LCIUM 9.0 mg/dL 08/08/2017 Comp Metabolic Lks642 AL K PHOS 49 U/L 08/08/2017 Comp Metabolic Mmk739 T(SGOT) 32 U/L 08/08/2017 Comp Metabolic Sdd066 AL T(SGPT) 25 U/L 08/08/2017 Comp Metabolic Axe857 BI LI T 0.7 mg/dL 08/08/2017 Comp Metabolic Clc455 AL BUMIN 4.2 g/dL 08/08/2017 Comp Metabolic Asa427 TP RO 6.0 g/dL 08/08/2017 Comp Metabolic Qse362 GL OB 1.9 g/dL 08/08/2017 Comp Metabolic Apb013 A/ G Ratio 2.2 Ratio 08/08/2017 Comp Metabolic Edt590 Os mo 289 mOsmo 08/08/2017 Lipid Ord30 CHOL 110 mg/dL 08/08/2017 Lipid Ord30 HDL 57.0 mg/dl 08/08/2017 Lipid Ord30 TRIG 83 mg/dL 08/08/2017 Lipid Ord30 LDL 36 mg/dL 08/08/2017 Lipid Ord30 C/HDL 1.9 Ratio 08/08/2017 Comp Metabolic Kaw146 NA 141 mEq/L 01/28/2016 Comp Metabolic Rmz155 K 4.5 mEq/L 01/28/2016 Comp Metabolic Dvl154 CL 111 mEq/L 01/28/2016 Comp Metabolic Yhr102 CO2 27.0 mEq/L 01/28/2016 Comp Metabolic Uke179 AN ION GAP 8 01/28/2016 Comp Metabolic Dzn047 GL UCOSE 88 mg/dL 01/28/2016 Comp Metabolic Cqp296 Cr eat 1.1 mg/dL 01/28/2016 Comp Metabolic Yom532 eG FR 69 ml/min/1.73m2 01/27 Comp Metabolic Lda111 BUN 23 mg/dL 01/28/2016 Comp Metabolic Whv244 B/ C Ratio 21.3 Ratio 01/28/2016 Comp Metabolic Emu735 CA LCIUM 9.0 mg/dL 01/28/2016 Comp Metabolic Zkh920 AL K PHOS 48 U/L 01/28/2016 Comp Metabolic Ogr464 T(SGOT) 28 U/L 01/28/2016 Comp Metabolic Uqf139 AL T(SGPT) 20 U/L 01/28/2016 Comp Metabolic Vcx020 BI LI T 0.8 mg/dL 01/28/2016 Comp Metabolic Rta354 AL BUMIN 4.0 g/dL 01/28/2016 Comp Metabolic Bhw359 TP RO 6.0 g/dL 01/28/2016 Comp Metabolic Iih345 GL OB 2.0 g/dL 01/28/2016 Comp Metabolic Vfz279 A/ G Ratio 2.0 Ratio 01/28/2016 Comp Metabolic Isl051 Os mo 284 mOsmo 01/28/2016 Lipid Ord30 [...] 34.5 pg 01/28/2016 Cbc With Differential Ord2 Wagoner% 10.0 % 01/28/2016 Cbc With Differential Ord2 [...] 1.17 K/ul 01/28/2016 Cbc With Differential Ord2 [place]er ABS# 0.6 K/ul 01/28/2016 Cbc With Differential Ord2 Eos ABS# 0.1 K/ul 01/28/2016 Cbc With Differential Ord2 Baso ABS# 0.0 K/ul 01/28/2016 Total Psa Ord10 PSA 2.96 ng/mL 01/28/2016 Pt Axa0709 PT 25.8 seconds 08/07/2015 Pt Sbk3583 INR 2.5 08/07/2015 Pt Puu1859 Low Intensity - 1.5-2.0 08/07/2015 Pt Xew7796 Mod intensity - 2.0-3.0 08/07/2015 Pt Scc3654 Hi intensity - 3.0-4.0 08/07/2015 Lipid Ord30 CHOL 102 mg/dL 08/07/2015 Lipid Ord30 HDL 50.0 mg/dl 08/07/2015 Lipid Ord30 TRIG 73 mg/dL 08/07/2015 Lipid Ord30 LDL 37 mg/dL 08/07/2015 Lipid Ord30 C/HDL 2.0 Ratio 08/07/2015 Hepatic Vqw185 ALBUMIN 4.0 g/dL 08/07/2015 Hepatic Rzn167 TPRO 6.0 g/dL 08/07/2015 Hepatic Hff619 GLOB 2.0 g/dL 08/07/2015 Hepatic Zsg764 A/G Ratio 2.0 Ratio 08/07/2015 Hepatic Sdz290 ALK PHOS 47 U/L 08/07/2015 Hepatic Ivv622 ALT(SGPT) 20 U/L 08/07/2015 Hepatic Dde092 AST(SGOT) 26 U/L 08/07/2015 Hepatic Tnc342 BILI T 0.6 mg/dL 08/07/2015 Hepatic Uko972 BILI D 0.2 mg/dL 08/07/2015 Hepatic Blz382 BILI I 0.4 mg/dL 08/07/2015 Pt Qkf1538 PT 24.3 seconds 12/22/2014 Pt Odf3418 INR 2.3 12/22/2014 Pt Srs7595 Low Intensity - 1.5-2.0 12/22/2014 Pt Wpc3576 Mod intensity - 2.0-3.0 12/22/2014 Pt Sym8227 Hi intensity - 3.0-4.0 12/22/2014 URINALYSIS NONAUTO W/O SCOPE 69973 Specific [place] 1.030 DateTime(Free Text in Apr) URINALYSIS NONAUTO W/O SCOPE 31740 PH 6.5 DateTime(Free Ryan t in Apr) URINALYSIS NONAUTO W/O SCOPE 03428 GLUCOSE neg DateTime(Free Ryan t in Apr) URINALYSIS NONAUTO W/O SCOPE 06696 Protein trace DateTime(Free T ext in Apr) URINALYSIS NONAUTO W/O SCOPE 17205 Blood 3+ DateTime(Free Text in Apr) URINALYSIS NONAUTO W/O SCOPE 03873 Bilirubin neg DateTime(Free Ryan t in ) URINALYSIS NONAUTO W/O SCOPE 25836 Ketones neg DateTime(Free Ryan t in ) URINALYSIS NONAUTO W/O SCOPE 66578 Urobilinogen neg DateTime(Free Text in Apr) URINALYSIS NONAUTO W/O SCOPE 59928 Nitrite neg DateTime(Free Ryan t in Apr) URINALYSIS NONAUTO W/O SCOPE 91269 Leukocytes neg DateTime(Free Text in ) Review of Systems System Result Effective Dates [...] distress 07/05/2018 None Full Exam - General 1995 Constitutional general appearance Overall: well nourished 07/05/2018 None Full Exam - General 1994 Respiratory auscultation Overall: breath sounds clear bilaterally 07/05/2018 None Full Exam - General 1994 Respiratory respiratory effort/rhythm Overall: no retractions 07/05/2018 None Full Exam - General 1995 Respiratory respiratory effort/rhythm Overall: normal rate 07/05/2018 None Full Exam - General 1994 Cardiovascular auscultation of heart Overall: regular rate 07/05/2018 None Full Exam - General 1994 Cardiovascular auscultation of heart Systolic murmur: mechanical 07/05/2018 None Full Exam - General 1995 Psychiatric orientation/consciousness Overall: oriented to person, place and time 07/05/2018 None Full Exam - General 1994 Psychiatric mood and affect Overall: normal mood and affect 07/05/2018 None Full Exam - General 1995 Psychiatric appearance Overall: well-groomed, good eye contact [...] inspection of skin Dermatitis: erythema 08/22/2013 right evangelical, no open are as, scabbed lesion healed [...] palp - head/face Location: on the right evangelical 08/08/2013 --Improved Full Exam - Dermatology Integument [...] palp - head/face Location: on the right evangelical 07/29/2013 None Full Exam - Dermatology Integument [...] inspection of skin Dermatitis: erythema 06/25/2013 left evangelical, with irritat ed center of lesion Full [...] clear 03/26/2013 None Full Exam - General 1995 Ears/Nose/Throat [...] sounds 03/26/2013 None Full Exam - General 1995 Musculoskeletal head and neck Overall: head atraumatic 03/26/2013 None Full Exam - General 1994 Musculoskeletal head and neck Overall: TMJ benign 03/26/2013 None Full Exam - General 1995 Musculoskeletal [...] inspection of skin Dermatitis: erythema 03/26/2013 left evangelical, with irritat ed center of lesion Full [...] General 1995 Ears/Nose/Throat lips/teeth/gingiva Overall: benign lips 11/20/2012 None [...] tenderness 11/20/2012 None Full Exam - General 1994 Constitutional general appearance Overall: well developed 11/20/2012 None Full Exam - General 1994 Constitutional general appearance Overall: in no acute distress 11/20/2012 None Full Exam - General 1994 Constitutional general appearance Overall: well nourished 11/20/2012 None Full Exam - General 1994 [...] General 1994 Ears/Nose/Throat lips/teeth/gingiva Overall: benign lips 08/21/2012 None Full Exam - General 1995 Constitutional general appearance Overall: well developed 06/28/2012 None Full Exam - General 1995 Constitutional general appearance Overall: in no acute distress 06/28/2012 None Full Exam - General 1995 Constitutional general appearance Overall: well nourished 06/28/2012 None Full Exam - General 1994 Eyes pupils and irises Overall: pupils equal, round, reactive to light and accomodation 06/28/2012 None Full Exam - General 1995 Ears/Nose/Throat otoscopic exam Overall: external auditory canals clear 06/28/2012 None Full Exam - General 1995 Ears/Nose/Throat otoscopic exam Overall: tympanic membranes clear 06/28/2012 None Full Exam - General 1995 Ears/Nose/Throat lips/teeth/gingiva Overall: benign lips 06/28/2012 None Full Exam - General 1995 Ears/Nose/Throat lips/teeth/gingiva Overall: no masses 06/28/2012 None Full Exam - General 1995 [...] mechanical 06/28/2012 None Full Exam - General 1994 Abdomen abdominal exam Overall: no tenderness 06/28/2012 None Full Exam - General 1994 Abdomen abdominal exam Overall: normal bowel sounds 06/28/2012 None Full Exam - General 1994 Musculoskeletal head and neck Overall: head atraumatic 06/28/2012 None Full Exam - General 1994 Musculoskeletal head and neck Overall: TMJ benign 06/28/2012 None Full Exam - General 1994 Musculoskeletal head and neck Overall: cervical spine benign 06/28/2012 None Full Exam - General 1994 Neurologic gait Overall: no ataxia, no unsteadiness 06/28/2012 None Full Exam - General 1994 Neurologic [...] distress 05/21/2012 None Full Exam - General 1994 Constitutional general appearance Overall: well nourished 05/21/2012 None Full Exam - General 1994 Eyes pupils and irises Overall: pupils equal, round, reactive to light and accomodation 05/21/2012 None Full Exam - General 1994 Ears/Nose/Throat otoscopic exam Overall: external auditory canals clear 05/21/2012 None Full Exam - General 1994 [...] clear 05/21/2012 None Full Exam - General 1994 Respiratory auscultation Overall: breath sounds clear bilaterally 05/21/2012 None Full Exam - General 1994 Respiratory respiratory effort/rhythm Overall: no retractions 05/21/2012 None Full Exam - General 1994 Respiratory respiratory effort/rhythm Overall: normal rate 05/21/2012 None Full Exam - General 1994 Cardiovascular auscultation of heart Overall: regular rate 05/21/2012 None Full Exam - General 1994 Cardiovascular auscultation of heart Systolic murmur: mechanical 05/21/2012 None Full Exam - General 1994 Abdomen abdominal exam Overall: no tenderness 05/21/2012 None Full Exam - General 1994 Abdomen abdominal exam Overall: normal bowel sounds 05/21/2012 None Full Exam - General 1994 Musculoskeletal head and neck Overall: head atraumatic 05/21/2012 None Full Exam - General 1995 [...] affect 05/21/2012 None Full Exam - General 1995 Constitutional general appearance Overall: well developed 04/26/2012 None Full Exam - General 1994 Constitutional general appearance Overall: in no acute distress 04/26/2012 None Full Exam - General 1994 Constitutional general appearance Overall: well nourished 04/26/2012 None Full Exam - General 1994 Eyes pupils and irises Overall: pupils equal, round, reactive to light and accomodation 04/26/2012 None Full Exam - General 1995 Ears/Nose/Throat otoscopic exam Overall: external auditory canals clear 04/26/2012 None Full Exam - General 1995 Ears/Nose/Throat otoscopic exam Overall: tympanic membranes clear 04/26/2012 None Full Exam - General 1994 Ears/Nose/Throat lips/teeth/gingiva Overall: benign lips 04/26/2012 None Full Exam - General 1995 Ears/Nose/Throat lips/teeth/gingiva Overall: no masses 04/26/2012 None Full Exam - General 1994 Ears/Nose/Throat oral cavity/pharynx/larynx Overall: oral mucosa clear 04/26/2012 None Full Exam - General 1995 Ears/Nose/Throat [...] accomodation 10/11/2011 None Full Exam - General 1994 Ears/Nose/Throat otoscopic exam Overall: external auditory canals clear 10/11/2011 None Full Exam - General 1994 Ears/Nose/Throat otoscopic exam Overall: tympanic membranes clear 10/11/2011 None Full Exam - General 1994 Ears/Nose/Throat lips/teeth/gingiva Overall: benign lips 10/11/2011 None Full Exam - General 1994 Ears/Nose/Throat lips/teeth/gingiva Overall: no masses 10/11/2011 None [...] mechanical 10/11/2011 None Full Exam - General 1994 Constitutional general appearance Overall: well developed 07/12/2011 [...] masses 07/12/2011 None Full Exam - General 1994 [...] swelling 05/11/2011 None Full Exam - General 1994 Musculoskeletal lower extremity Palpation - knee: positive bulge sign 05/11/2011 None Full Exam - General 1994 Musculoskeletal lower extremity Palpation - knee: positive ballottement sign 05/11/2011 None Full Exam - General 1994 Musculoskeletal lower extremity Palpation - knee: small effusion 05/11/2011 None Full Exam - General 1994 Musculoskeletal lower extremity ROM - knee: decreased flexion 05/11/2011 None Full Exam - General 1994 Constitutional general appearance Overall: well nourished 05/11/2011 [...] VACC PRSV FREE I NC ANTIG CPT-4: 59089 01/25/2017 PPPS, SUBSEQ VISIT CPT- 4: G0439 08/05/2016 ADMIN PNEUMOCOCCAL V ACCINE SNOMED CT: 19510589 CPT-4: G0009 04/26/2016 Pneumococcal Polysac charide Vaccine, 23-Valent, Ad Formatting Model/CDA Sections, Assigned to/Raquel Shelley CPT-4: 90906Oyvprsh 04/26/2016 ADMIN INFLUENZA VIRU S VAC CPT-4: G0008 01/27/2016 FLU VACC 4 JULISA 3 YRS PLUS IM Formatting Model/CDA Sections, Assigned to/Raquel Shelley SNOMED CT: 02799319 CPT-4: 70413Jhvvkub 01/27/2016 ADMIN INFLUENZA VIRU S VAC Formatting Model/CDA Sections, Assigned to CPT-4: Q5023Qcmervu 01/20/2015 FLU VACC 4 JULISA 3 YRS PLUS IM SNOMED CT: 86060050 CPT-4: 56516 01/20/2015 DRAIN/INJECT JOINT/B URSA CPT-4: 37118 04/01/2014 TRIAMCINOLONE ACET I [place] NOS CPT-4: J3301 04/01/2014 URINALYSIS NONAUTO W /O SCOPE CPT-4: 43633 04/01/2014 ADMIN INFLUENZA VIRU S VAC Assigned to/Raquel Shelley CPT-4: N5786Aowoprg 01/13/2014 FLU VAC NO PRSV 4 VA L 3 YRS+ Assigned to/Raquel Shelley CPT-4: 32523Yxaudro 01/13/2014 PRESCRIP TRANSMIT A ERX SY CPT-4: G8553 03/26/2013 ADMIN INFLUENZA VIRU S VAC CPT-4: G0008 01/14/2013 FLULAVAL VACC, 3 YRS & >, IM CPT-4: Q2036 01/14/2013 DESTRUCT PREMALG LESION CPT-4: 21345 12/25/2012 PRESCRIP TRANSMIT A ERX SY CPT-4: G8553 08/21/2012 DRAIN/INJECT JOINT/B URSA CPT-4: 34068 06/28/2012 TRIAMCINOLONE ACET I [place] NOS CPT-4: J3301 06/28/2012 ADMIN INFLUENZA VIRU S VAC CPT-4: G0008 02/14/2012 FLULAVAL VACC, 3 YRS & >, IM CPT-4: Q2036 02/14/2012 URINALYSIS NONAUTO W /O SCOPE CPT-4: 06245 07/12/2011 PRESCRIP TRANSMIT A ERX SY CPT-4: G8553 07/12/2011 ADMIN INFLUENZA VIRU S VAC CPT-4: G0008 01/11/2011 FLULAVAL VACC, 3 YRS & >, IM CPT-4: Q2036 01/11/2011 Vital Signs Date Vital 07/25/2018 Blood Pressure 1: 126/70 Code: 8480-6 BMI: 21.1 Code: 87306-9 Heart Rate 1: 57 bpm Height: 5'7" SpO2: 99% Weight: 135 lbs 07/05/2018 Blood Pressure 1: 124/60 Code: 8480-6 BMI: 21.3 Code: 52426-1 Heart Rate 1: 68 bpm Height: 5'7" SpO2: 97% Weight: 135 lbs 14 o z 06/26/2018 Blood Pressure 1: 128/76 Code: 8480-6 BMI: 21.6 Code: 34649-5 Heart Rate 1: 82 bpm Height: 5'7" SpO2: 95% Weight: 138 lbs 03/27/2018 Blood Pressure 1: 122/70 Code: 8480-6 BMI: 21.1 Code: 18226-6 Heart Rate 1: 76 bpm Height: 5'7" SpO2: 96% Weight: 135 lbs 02/14/2018 Blood Pressure 1: 102/58 Code: 8480-6 BMI: 21.5 Code: 92172-6 Heart Rate 1: 78 bpm Height: 5'7" SpO2: 98% Weight: 137 lbs 11/08/2017 Blood Pressure 1: 132/68 Code: 8480-6 BMI: 21.9 Code: 90181-7 Heart Rate 1: 66 bpm Height: 5'7" SpO2: 98% Weight: 140 lbs 08/11/2017 Blood Pressure 1: 11868 Code: 8480-6 BMI: 22.2 Code: 61734-3 Heart Rate 1: 63 bpm Height: 5'7" SpO2: 98% Waist Measure (cm): 61 cm Weight: 142 lbs 08/09/2017 Blood Pressure 1: 11868 Code: 8480-6 BMI: 22.4 Code: 51534-3 Heart Rate 1: 60 bpm Height: 5'7" SpO2: 98% Weight: 143 lbs 04/11/2017 Blood Pressure 1: 122/68 Code: 8480-6 BMI: 23.0 Code: 51638-8 Heart Rate 1: 65 bpm Height: 5'7" SpO2: 98% Weight: 147 lbs 01/25/2017 Blood Pressure 1: 136/58 Code: 8480-6 BMI: 23.0 Code: 52652-3 Heart Rate 1: 63 bpm Height: 5'7" SpO2: 96% Weight: 147 lbs 12/21/2016 Blood Pressure 1: 112/52 Code: 8480-6 BMI: 23.0 Code: 90557-2 Heart Rate 1: 73 bpm Height: 5'7" SpO2: 97% Weight: 147 lbs 12/01/2016 Blood Pressure 1: 128/76 Code: 8480-6 BMI: 22.7 Code: 56363-8 Heart Rate 1: 67 bpm Height: 5'7" SpO2: 95% Weight: 145 lbs 10/25/2016 Blood Pressure 1: 128/70 Code: 8480-6 BMI: 23.5 Code: 01364-6 Heart Rate 1: 62 bpm Height: 5'7" SpO2: 96% Weight: 150 lbs 08/05/2016 Blood Pressure 1: 110/58 Code: 8480-6 BMI: 23.3 Code: 68125-4 Heart Rate 1: 65 bpm Height: 5'7" SpO2: 95% Waist Measure (cm): 102 cm Weight: 149 lbs 07/26/2016 Blood Pressure 1: 112/64 Code: 8480-6 BMI: 23.3 Code: 82806-5 Heart Rate 1: 62 bpm Height: 5'7" SpO2: 95% Weight: 149 lbs 04/26/2016 Blood Pressure 1: 124/68 Code: 8480-6 BMI: 23.8 Code: 05679-9 Heart Rate 1: 64 bpm Height: 5'7" SpO2: 98% Weight: 152 lbs 01/27/2016 Blood Pressure 1: 118/70 Code: 8480-6 BMI: 24.0 Code: 05855-6 Heart Rate 1: 64 bpm Height: 5'7" SpO2: 97% Weight: 153 lbs 10/27/2015 Blood Pressure 1: 114/60 Code: 8480-6 BMI: 23.7 Code: 46733-4 Heart Rate 1: 61 bpm Height: 5'7" SpO2: 97% Weight: 151 lbs 8 oz 06/30/2015 Blood Pressure 1: 102/60 Code: 8480-6 BMI: 23.9 Code: 44592-3 Heart Rate 1: 70 bpm Height: 5'7" SpO2: 97% Weight: 152 lbs 8 oz 03/31/2015 Blood Pressure 1: 122/64 Code: 8480-6 BMI: 23.2 Code: 04431-9 Heart Rate 1: 64 bpm Height: 5'7" SpO2: 97% Weight: 148 lbs 03/17/2015 Blood Pressure 1: 142/76 Code: 8480-6 BMI: 23.5 Code: 64669-9 Heart Rate 1: 64 bpm Height: 5'7" SpO2: 98% Weight: 150 lbs 01/20/2015 Blood Pressure 1: 128/64 Code: 8480-6 BMI: 22.9 Code: 56132-4 Heart Rate 1: 72 bpm Height: 5'7" SpO2: 96% Weight: 146 lbs 12/15/2014 Blood Pressure 1: 110/60 Code: 8480-6 BMI: 21.9 Code: 05435-8 Heart Rate 1: 88 bpm Height: 5'7" SpO2: 96% Weight: 140 lbs 09/30/2014 Blood Pressure 1: 146/70 Code: 8480-6 BMI: 23.5 Code: 68030-6 Heart Rate 1: 53 bpm Height: 5'7" SpO2: 94% Weight: 150 lbs 07/01/2014 Blood Pressure 1: 140/62 Code: 8480-6 BMI: 23.6 Code: 64728-2 Heart Rate 1: 70 bpm Height: 5'7" Weight: 151 lbs 04/01/2014 Blood Pressure 1: 118/78 Code: 8480-6 BMI: 24.5 Code: 00698-2 Heart Rate 1: 56 bpm Height: 5'7" Weight: 156 lbs 8 oz 01/13/2014 Blood Pressure 1: 138/64 Code: 8480-6 BMI: 24.4 Code: 02275-2 Heart Rate 1: 54 bpm Height: 5'7" SpO2: 96% Weight: 156 lbs 10/15/2013 Blood Pressure 1: 124/74 Code: 8480-6 BMI: 24.6 Code: 15205-4 Heart Rate 1: 60 bpm Height: 5'7" Weight: 157 lbs 09/11/2013 Blood Pressure 1: 120/62 Code: 8480-6 BMI: 23.6 Code: 15857-0 Heart Rate 1: 64 bpm Height: 5'7" Weight: 151 lbs 08/22/2013 Blood Pressure 1: 120/64 Code: 8480-6 BMI: 24.4 Code: 94732-8 Heart Rate 1: 64 bpm Height: 5'7" Weight: 156 lbs 08/08/2013 Blood Pressure 1: 102/62 Code: 8480-6 BMI: 24.7 Code: 04551-9 Heart Rate 1: 60 bpm Height: 5'7" Weight: 158 lbs 07/29/2013 Blood Pressure 1: 114/74 Code: 8480-6 Heart Rate 1: 60 bpm 06/25/2013 Blood Pressure 1: 128/70 Code: 8480-6 BMI: 24.1 Code: 90196-8 Heart Rate 1: 56 bpm Height: 5'7" SpO2: 98% Weight: 154 lbs 03/26/2013 Blood Pressure 1: 132/78 Code: 8480-6 BMI: 24.6 Code: 59285-8 Heart Rate 1: 60 bpm Height: 5'7" SpO2: 98% Temperature: 36.5 (C ) / 97.7 (F) Weight: 157 lbs 12/25/2012 Blood Pressure 1: 98/60 Code: 8480-6 Heart Rate 1: 64 bpm Weight: 160 lbs 11/20/2012 Blood Pressure 1: 136/80 Code: 8480-6 BMI: 24.6 Code: 51891-3 Heart Rate 1: 68 bpm Height: 5'7" Weight: 157 lbs 08/21/2012 Blood Pressure 1: 112/56 Code: 8480-6 BMI: 23.8 Code: 12598-5 Heart Rate 1: 60 bpm Height: 5'7" Weight: 152 lbs 06/28/2012 Blood Pressure 1: 128/82 Code: 8480-6 Heart Rate 1: 80 bpm Respiratory Rate: 20 bpm Weight: 149 lbs 05/21/2012 Blood Pressure 1: 116/64 Code: 8480-6 BMI: 23.6 Code: 96109-8 Heart Rate 1: 72 bpm Height: 5'7" Weight: 151 lbs 04/26/2012 Blood Pressure 1: 140/80 Code: 8480-6 Heart Rate 1: 76 bpm Respiratory Rate: 16 bpm Temperature: 36.7 (C) / 98.0 (F) Weight: 02/14/2012 Blood Pressure 1: 116/58 Code: 8480-6 BMI: 23.6 Code: 59108-8 Heart Rate 1: 64 bpm Height: 5'7" Respiratory Rate: 18 bpm Weight: 151 lbs 10/11/2011 Blood Pressure 1: 100/54 Code: 8480-6 Heart Rate 1: 60 bpm Respiratory Rate: 16 bpm Weight: 143 lbs 07/12/2011 Blood Pressure 1: 130/62 Code: 8480-6 BMI: 22.9 Code: 04173-0 Heart Rate 1: 62 bpm Height: 5'7" Respiratory Rate: 16 bpm Weight: 146 lbs 05/11/2011 Blood Pressure 1: 120/64 Code: 8480-6 BMI: 23.6 Code: 40981-1 Heart Rate 1: 72 bpm Height: 5'7" Respiratory Rate: 16 bpm Weight: 151 lbs 04/12/2011 Blood Pressure 1: 120/62 Code: 8480-6 BMI: 24.6 Code: 97517-6 Heart Rate 1: 60 bpm Height: 5'7" Respiratory Rate: 16 bpm Weight: 157 lbs 01/11/2011 Blood Pressure 1: 126/68 Code: 8480-6 BMI: 24.7 Code: 38532-4 Heart Rate 1: 50 bpm Height: 5'7" [...] chr onic 02/14/2018 None hypertension Quality etelvina licha hypertension 02/14/2018 None hypertension Quality sta ble [...] chr onic 11/08/2017 None hypertension Quality etelvina licha hypertension 11/08/2017 None hypertension Quality sta ble [...] Medicare Wellness Exam Handli ng Stress usually fredsi effectively 08/05/2016 None Annual Medicare Wellness Exam [...] consta nt 09/30/2014 None knee pain Quality tobias ng 09/30/2014 states it is bone on [...] Findings Denies dyspnea 01/13/2014 None hypertension Quality [facility] onic 10/15/2013 None hypertension Onset and Resolution [...] lesion Location on the forehead 07/29/2013 right evangelical skin lesion Onset and Resolution ongoing 07/29/2013 [...] down to 130lbs but since moving to [place] has gained some weight back hypertension Quality chr onic 10/11/2011 None hypertension Onset and Resolution ongoing 10/11/2011 None hypertension Blood Pressure Values "white coat" (home SBP<129 / DBP<84) 10/11/2011 None hypertension Severity mi ld 10/11/2011 None weight loss Frequency of Episodes decreasing 10/11/2011 None weight loss Triggers jareth nghugo in diet 10/11/2011 pt states that he [...] remembering names 01/11/2011 None memory loss 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 P ATIENT, LEVEL III Diagnosis: Otalgia, left ear[ICD10: H92.02] [facility] CPT-4: 68966 07/25/2018 ([id number]) 13405 EST. P ATIENT, LEVEL III Diagnosis: Otalgia, left ear[ICD10: H92.02] [facility] CPT-4: 36454 07/05/2018 ([id number]) 42116 EST. P ATIENT, LEVEL III Diagnosis: Otorrhagia, bilateral[ICD10: H92.23] [facility] CPT-4: 61890 06/26/2018 ([id number]) 50137 EST. P ATIENT, LEVEL III Diagnosis: Essential (primary) hypertension[ICD10: I10] Diagnosis: Slow transit constipation[ICD10: K59.01] [facility]ay [facility] CPT-4: 84034 03/27/2018 ([id number]) 92092 EST. P ATIENT, LEVEL III Diagnosis: Slow transit constipation[ICD10: K59.01] Diagnosis: Other hypotension[ICD10: I95.89] Nay Martinez MD, [facility] CPT-4: 54978 02/14/2018 ([id number]) 90058 EST. P ATIENT, LEVEL IV Diagnosis: Essential (primary) hypertension[ICD10: I10] Diagnosis: Alzheimer's disease with early onset[ICD10: G30.0] Diagnosis: Actinic keratosis[ICD10: L57.0] Nay Martinez MD, [facility] CPT-4: 28543 11/08/2017 ([id number]) 02730 EST. P ATIENT, LEVEL IV Diagnosis: Essential (primary) hypertension[ICD10: I10] Diagnosis: Mixed hyperlipidemia[ICD10: E78.2] Diagnosis: Alzheimer's disease with early onset[ICD10: G30.0] Nay [facility] CPT-4: 87904 08/09/2017 ([id number]) 12319 EST. P ATIENT, LEVEL IV Diagnosis: Essential (primary) hypertension[ICD10: I10] Diagnosis: Alzheimer's disease with early onset[ICD10: G30.0] Diagnosis: Mixed hyperlipidemia[ICD10: E78.2] Diagnosis: Pain in left knee[ICD10: M25.562] Nay Martinez MD, [facility] CPT-4: 22080 04/11/2017 ([id number]) 54452 EST. P ATIENT, LEVEL III Diagnosis: Essential (primary) hypertension[ICD10: I10] Diagnosis: Encounter for immunization[ICD10: Z23] Diagnosis: Alzheimer's disease with early onset[ICD10: G30.0] [facility] CPT-4: 01143 01/25/2017 ([id number]) 01365 EST. P ATIENT, LEVEL III Diagnosis: Otalgia, left ear[ICD10: H92.02] Nay Martinez MD, [facility] CPT-4: 87443 12/21/2016 ([id number]) 40822 EST. P ATIENT, LEVEL IV Diagnosis: Essential (primary) hypertension[ICD10: I10] Diagnosis: Alzheimer's disease with early onset[ICD10: G30.0] Diagnosis: Abnormal weight loss[ICD10: R63.4] Nay Martinez MD, [facility] CPT- 4: 31989 12/01/2016 ([id number]) 32550 EST. P ATIENT, LEVEL IV Diagnosis: Essential (primary) hypertension[ICD10: I10] Diagnosis: Mixed hyperlipidemia[ICD10: E78.2] Nay Martinez MD, [facility] CPT- 4: 59750 10/25/2016 30631 EST. PATIENT, LEVEL IV Diagnosis: Essential (primary) hypertension[ICD10: I10] Diagnosis: Alzheimer's disease with early onset[ICD10: G30.0] Diagnosis: Pain in left knee[ICD10: M25.562] Diagnosis: Cyst of kidney, acquired[ICD10: N28.1] Nay Martinez MD, [facility] CPT-4: 79006 07/26/2016 ([id number]) 56491 EST. P ATIENT, LEVEL IV Diagnosis: Essential (primary) hypertension[ICD10: I10] Diagnosis: Alzheimer's disease with early onset[ICD10: G30.0] Rosa Martinez MD, [facility] CPT-4: 83896 04/26/2016 ([id number]) 18792 EST. P ATIENT, LEVEL IV Diagnosis: Essential (primary) hypertension[ICD10: I10] Diagnosis: Alzheimer's disease with early onset[ICD10: G30.0] Diagnosis: VACCIN FOR INFLUENZA[ICD10: Z23] Nay Martinez MD, [facility] CPT-4: 79181 01/27/2016 ([id number]) 50818 EST. P ATIENT, LEVEL IV Diagnosis: Essential (primary) hypertension[ICD10: I10] Diagnosis: Alzheimer's disease with early onset[ICD10: G30.0] Nay [facility] CPT-4: 56604 10/27/2015 ([id number]) 23099 EST. P ATIENT, LEVEL IV Diagnosis: Essential (primary) hypertension[ICD10: I10] Diagnosis: Alzheimer's disease with early onset[ICD10: G30.0] Nay [facility] CPT-4: 47486 06/30/2015 ([id number]) 18451 EST. P ATIENT, LEVEL IV Diagnosis: Essential (primary) hypertension[ICD10: I10] Diagnosis: Alzheimer's disease with early onset[ICD10: G30.0] Nay [facility] CPT-4: 15808 03/31/2015 51096 EST. PATIENT, LEVEL III Diagnosis: Low back pain[ICD10: M54.5] Fern Martinez MD, [facility] CPT-4: 13437 03/17/2015 ([id number]) 04130 EST. P ATIENT, LEVEL IV Diagnosis: ESSENTIAL HYPERTENSION[ICD9: 401.9] Diagnosis: Encounter for long-term (current) use of anticoagulants[ICD9: V58.61] Diagnosis: Skin change[ICD9: 782.9] Diagnosis: Change in mole[ICD9: 216.9] Diagnosis: VACCIN FOR INFLUENZA[ICD9: V04.81] Nay Martinez MD, [facility] CPT- 4: 10252 01/20/2015 ([id number]) 64604 EST. P ATIENT, LEVEL IV Diagnosis: ESSENTIAL HYPERTENSION[ICD9: 401.9] Diagnosis: OSTEOARTHROSIS-MULT SITE[ICD9: 715.80] Diagnosis: Knee pain[ICD9: 719.46] Diagnosis: ENCNTR LONG-ANTICOAG USE[ICD9: V58.61] [facility] CPT-4: 92993 12/15/2014 ([id number]) 72614 EST. P ATIENT, LEVEL IV Diagnosis: ESSENTIAL HYPERTENSION[ICD9: 401.9] Diagnosis: OSTEOARTHROSIS-MULT SITE[ICD9: 715.80] Diagnosis: Knee pain[ICD9: 719.46] [facility] CPT-4: 50400 09/30/2014 ([id number]) 30193 EST. P ATIENT, LEVEL IV Diagnosis: Skin cancer[ICD9: 173.90] Diagnosis: ESSENTIAL HYPERTENSION[ICD9: 401.9] Diagnosis: ALZHEIMER'S DISEASE[ICD9: 331.0] Diagnosis: Knee pain[ICD9: 719.46] Nay Martinez MD, [facility] CPT-4: 88112 07/01/2014 ([id number]) 99302 EST. P ATIENT, LEVEL IV Diagnosis: ESSENTIAL HYPERTENSION[ICD9: 401.9] Diagnosis: Dysuria[ICD9: 788.1] Diagnosis: Knee pain, bilateral[ICD9: 719.46] Diagnosis: Osteoarthritis[ICD9: 715.90] Diagnosis: Dementia[ICD9: 294.8] Nay Martinez MD, [facility] CPT-4: 82861 04/01/2014 ([id number]) 26802 EST. P ATIENT, LEVEL IV Diagnosis: ESSENTIAL HYPERTENSION[ICD9: 401.9] Diagnosis: VACCIN FOR INFLUENZA[ICD10: Z23] Diagnosis: HYPERLIPIDEMIA[ICD9: 272.4] Diagnosis: ALZHEIMER'S DISEASE[ICD9: 331.0] Nay Martinez MD, [facility] CPT-4: 12467 01/13/2014 ([id number]) 13140 EST. P ATIENT, LEVEL IV Diagnosis: Dementia[ICD9: 294.8] Diagnosis: Alzheimer's dementia[ICD9: 331.0] Diagnosis: OSTEOARTHROSIS-MULT SITE[ICD9: 715.80] Diagnosis: ESSENTIAL HYPERTENSION[ICD9: 401.9] Nay Martinez MD, [facility] CPT- 4: 10895 10/15/2013 ([id number]) 15713 EST. P ATIENT, LEVEL III Diagnosis: Knee pain, acute[ICD9: 719.46] Diagnosis: Osteoarthritis[ICD9: 715.90] Diagnosis: Gait instability[ICD9: 781.2] Nay Martinez MD, [facility] CPT-4: 42297 09/11/2013 ([id number]) 78545 EST. P ATIENT, LEVEL III Diagnosis: CELLULITIS OF FACE[ICD9: 682.0] Diagnosis: Esophageal reflux[ICD9: 530.81] [facility] CPT- 4: 24621 08/22/2013 43724 EST. PATIENT, LEVEL II Diagnosis: CELLULITIS OF FACE[ICD9: 682.0] Nay Martinez MD, [facility] CPT-4: 99901 08/08/2013 ([id number]) 56765 EST. P ATIENT, LEVEL III Diagnosis: Cellulitis of evangelical[ICD9: 682.0] Nay Martinez MD, [facility] CPT-4: 92943 07/29/2013 ([id number]) 98290 EST. P ATIENT, LEVEL IV Diagnosis: ESSENTIAL HYPERTENSION[SNOMED: 04488065] Diagnosis: ALZHEIMER'S DISEASE[ICD9: 331.0] Diagnosis: INTEGUMENT TISS SYMP NEC[ICD9: 782.9] Diagnosis: JOINT PAIN-L/LEG[ICD9: 719.46] [facility] CPT-4: 39009 06/25/2013 ([id number]) 94594 EST. P ATIENT, LEVEL IV Diagnosis: ESSENTIAL HYPERTENSION[SNOMED: 65529878] Diagnosis: ACTINIC KERATOSIS[ICD9: 702.0] Diagnosis: Skin cancer[ICD9: 173.90] Diagnosis: COUGH[ICD9: 786.2] Diagnosis: ACUTE BRONCHITIS[ICD9: 466.0] [facility] CPT-4: 29700 03/26/2013 64606 EST. PATIENT, LEVEL IV Diagnosis: ESSENTIAL HYPERTENSION[SNOMED: 83304538] Diagnosis: ALZHEIMER'S DISEASE[ICD9: 331.0] Diagnosis: JOINT PAIN-L/LEG[ICD9: 719.46] Diagnosis: MUSCSKEL SYMPT LIMB NEC[ICD9: 729.89] [facility] CPT-4: 46130 11/20/2012 ([id number]) 68537 EST. P ATIENT, LEVEL IV Diagnosis: ESSENTIAL HYPERTENSION[SNOMED: 18424948] Diagnosis: ALZHEIMER'S DISEASE[ICD9: 331.0] Diagnosis: ENCNTR LONG-ANTICOAG USE[ICD9: V58.61] Diagnosis: Skin change[ICD9: 782.9] [facility] CPT-4: 51326 08/21/2012 ([id number]) 85048 EST. P ATIENT, LEVEL III Diagnosis: SUBDURAL HEMORRHAGE[ICD9: 432.1] Nay Martinez MD, [facility] CPT-4: 96198 06/28/2012 ([id number]) 33503 EST. P ATIENT, LEVEL IV Diagnosis: ESSENTIAL HYPERTENSION[SNOMED: 55967358] Diagnosis: Subdural hematoma[ICD9: 432.1] Diagnosis: Encounter for long-term (current) use of anticoagulants[ICD9: V58.61] Nay Martinez MD, [facility] CPT-4: 81379 05/21/2012 ([id number]) Patient adm itted to the hospital from clinic (NO CHARGE) Diagnosis: Lower extremity weakness[ICD9: 729.89] Diagnosis: FALL AGAINST OBJECT[ICD9: E888.1] Diagnosis: Gait instability[ICD9: 781.2] Nay Martinez MD, [facility] CPT-4: 97118P 04/26/2012 ([id number]) 55611 EST. P ATIENT, LEVEL IV Diagnosis: ESSENTIAL HYPERTENSION[SNOMED: 81987466] Diagnosis: ALZHEIMER'S DISEASE[ICD9: 331.0] Diagnosis: HYPERLIPIDEMIA[ICD9: 272.4] Nay Martinez MD, [facility] CPT-4: 12902 02/14/2012 ([id number]) 11423 EST. P ATIENT, LEVEL IV Diagnosis: ALZHEIMER'S DISEASE[ICD9: 331.0] Diagnosis: Abnormal loss of weight[ICD9: 783.21] Diagnosis: Knee pain, bilateral[ICD9: 719.46] Diagnosis: ESSENTIAL HYPERTENSION[SNOMED: 23370530] Nay Martinez MD, [facility] CPT-4: 91030 10/11/2011 ([id number]) 43888 EST. P ATIENT, LEVEL IV Diagnosis: ESSENTIAL HYPERTENSION[SNOMED: 30562372] Diagnosis: JOINT PAIN-L/LEG[ICD9: 719.46] Diagnosis: Thrush[ICD9: 112.0] Diagnosis: Abdominal pain[ICD9: 789.00] Nay Martinez MD, [facility] CPT-4: 09943 07/12/2011 ([id number]) 81736 EST. P ATIENT, LEVEL III Diagnosis: Knee pain[ICD9: 719.46] Diagnosis[facility] [place][ICD9: 715.80] Nay Martinez MD, [facility] CPT-4: 71134 05/11/2011 ([id number]) 05201 EST. P ATIENT, LEVEL IV Diagnosis: Alzheimer's dementia[ICD9: 331.0] Diagnosis: ESSENTIAL HYPERTENSION[SNOMED: 41053579] Nay Martinez MD, [facility] CPT-4: 38621 04/12/2011 50609 EST. PATIENT, LEVEL IV Diagnosis: ESSENTIAL HYPERTENSION[SNOMED: 25397903] Diagnosis: HYPERLIPIDEMIA[ICD9: 272.4] Diagnosis: VACCIN FOR INFLUENZA[ICD9: V04.81] Diagnosis: Dementia[ICD9: 294.8] Nay Martinez MD, [facility] CPT-4: 87182 01/11/2011 Plan of Care Planned Activity Notes C odes Status Date App[facility]ment: [facility] [phone] [phone] [facility] - Annual Wellness Visit 08/21/2018 Visit Plan: Blood in ears - removed the dried blood shard that is residual in left ear - no other treatment changes needed. 07/25/2018 Appointment: Nay Martinez WPtel: [facility] (15 min) Moderate 07/25/2018 Patient Education: Patient [...] 2 wks 07/05/2018 App[facility]ment: [facility] ([facility] min) Moderate 07/05/2018 Patient Education: Patient Medication Summary Completed 07/05/2018 Visit Plan: Nasal congestion - rx f or flonase to the [facility] pharmacy - rx was called to [facility]. Blood in ears - due to pt using qtips aggressively - recommended pt to use mineral oil in ears nightly x 10 days - return to clinic in 10 days for my evaluation to see if there are any residual lesions in his ears once the dried blood is out of the ear canals. 06/26/2018 Appointment: [facility] [phone] [facility] (15 min) Moderate 06/26/2018 Patient Education: Patient [...] at home. 03/27/2018 Appointment: [facility]ay Martinez [facility]el[facility] ([facility] min) Moderate 03/27/2018 Patient Education: Patient Medication Summary Completed 03/27/2018 Appointment: Nay Martinez [facility]el[facility] [place] (15 min) Moderate 03/07/2018 Appointment: Nay Martinez WPtel: [facility] [place] (15 min) Moderate 02/21/2018 Visit Plan: Constipation [...] Monday morning. 02/14/2018 Appointment: Nay Martinez WPtel: [facility] [place] (15 min) Moderate 02/14/2018 Patient Education: [...] current medications. 11/08/2017 Appointment: [phone] [facility] ([facility] min) Moderate 11/08/2017 Patient Education: Patient [...] surrogate. 08/11/2017 App[facility]ment: [phone] [id number] [facility] - Annual Wellness Visit 08/11/2017 Patient Education: Patient Medication Summary Completed 08/11/2017 Visit Plan: Hyperlipidemia - extrem simeon well controlled with chol/hdl ratio of 1.7 [...] intake. 08/09/2017 App[facility]ment: [phone] [facility] ([facility] min) Moderate 08/09/2017 Patient Education: Patient [...] to medications. 04/11/2017 App[facility]ment: [facility] [facility] ([facility] min) Moderate 04/11/2017 Patient Education: Patient [...] memory loss. 01/25/2017 Appointment: Nay Martinez WPtel: [phone] [facility] (15 min) Moderate 01/25/2017 Patient Education: Patient Medication Summary Completed 01/25/2017 Appointment: Nay Martinez WPtel: [phone] [facility] (15 min) Moderate 01/24/2017 Visit Plan: Dried bloody debris in left ear - removed with alligator forceps, ear currette - pt to use mineral oil in the ear. 12/21/2016 Appointment: Nay Martinez WPtel: [phone] [facility] (15 min) Moderate 12/21/2016 Patient Education: Patient [...] fat intake. 12/01/2016 Appointment: Nay Martinez WPtel: [phone] [facility] (15 min) Moderate 12/01/2016 Patient Education: Patient Medication Summary Completed 12/01/2016 Patient Education: Hypertension Completed 12/01/2016 Visit Plan: Hypertension - well con trolled [...] to medications. 10/25/2016 Appointment: Nay Martinez WPtel: [phone] [facility] (15 min) Moderate 10/25/2016 Patient Education: Patient [...] the home. 08/05/2016 Appointment: Rosa Aguilar WPtel: [phone] - Annual Wellness Visit 08/05/2016 Patient Education: [...] for tomorrow. 07/26/2016 Appointment: Nay [facility]Ptel[facility] (15 min) Moderate 07/26/2016 Patient Education: Patient [...] of treatment. 04/26/2016 Appointment: Rosa Aguilar WPtel: [phone] [phone] (15 min) Moderate 04/26/2016 Patient Education: Patient [...] of treatment. 01/27/2016 Appointment: Nay Martinez WPtel: [address] [facility] (15 min) Moderate 01/27/2016 Patient Education: Patient [...] of treatment. 10/27/2015 Appointment: [phone] [place] (15 min) Moderate 10/27/2015 Patient Education: Patient [...] of treatment. 06/30/2015 Appointment: Nay Martinez WPtel: [phone] [facility] [place] (15 min) Moderate 06/30/2015 Appointment: Nay Martinez WPtel: [phone] [facility] [place] (15 min) Moderate 06/30/2015 Patient Education: [...] of treatment. 03/31/2015 Appointment: [phone] [place] (15 min) Moderate 03/31/2015 Patient Education: Patient [...] surgically removed. 01/20/2015 Appointment: Nay Martinez WPtel: [facility] (15 min) Moderate 01/20/2015 Patient Education: Patient Medication Summary Completed 01/20/2015 Patient Education: Hypertension Completed 01/20/2015 Care Plan: Referral Order SNOMED-CT : [id number] Ordered 01/20/2015 Appointment: Nay Martinez [facility]Ptel[facility] (15 min) Moderate 12/18/2014 Visit Plan: Hypertension [...] 3.5. 12/15/2014 Appointment: N[facility]el[phone] (15 min) Moderate 12/15/2014 Patient Education: Patient [...] to have his knee operated on at [facility], I have placed a phone call to Dr. Ballesteros - waiting on a call back 09/30/2014 Appointment: [phone] Follow up 09/30/2014 Patient Education: Patient Medication [...] for knee. 07/01/2014 Appointment: [phone] Follow up 07/01/2014 Patient Education: Patient Medication Summary Completed 07/01/2014 Patient Education: Hypertension Completed 07/01/2014 Care Plan: Referral Order SNOMED-CT : [id number] Ordered 07/01/2014 Visit Plan: Hypertension - well [...] treatment. 04/01/2014 Appointment: Nay [facility]Ptel[phone] Follow up 04/01/2014 Patient Education: Patient Medication Summary Completed 04/01/2014 Visit Plan: Hypertension - well suzy julioed - continue with current medications, continue with [...] of treatment. 01/13/2014 Appointment: Nay [facility]Ptel[phone] Follow up 01/13/2014 Patient Education: Patient Medication Summary Completed 01/13/2014 Patient Education: Hypertension Completed 01/13/2014 Care Plan: COMPLETE CBC AUTOMATED LOINC : 74027-1 Ordered 01/13/2014 Visit Plan: Knee pain has improved - pt needs to continue with use of the voltaren gel, no change in treatment at this time, he is not interested in seeing an orthopedic surgeon until his knee pain is not controlled with the voltaren gel. 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 10/15/2013 Appointment: Nay Martinez WPtel: [address] [place], [place] [phone] Follow up 10/15/2013 Patient Education: Patient Medication Summary Completed 10/15/2013 Patient Education: Hypertension Completed 10/15/2013 Appointment: Nay Martinez WPtel: [address] [place], [place] [phone] Follow up 10/02/2013 Visit Plan: Lower leg pain - rx for voltaren gel to be used on right knee four times daily to alleviate pain in knee. Pt to use walker - RX for rolator walker. 09/11/2013 Appointment: Nay Martinez WPtel: [address] [place], [place] [phone] Other 09/11/2013 Patient Education: Patient Medication Summary [...] current treatement. 08/22/2013 Appointment: Rosa Aguilar WPtel: [phone] Follow up 08/22/2013 Patient Education: Patient Medication Summary Completed 08/22/2013 Visit Plan: Cqmunsbsdin-qxulwivv-sa ntinue treatment-return in 2 weeks for follow up 08/08/2013 Appointment: [phone] [place] Follow up 08/08/2013 Patient Education: Patient Medication [...] current plan of treatment. Skin lesion on evangelical - pt to use flurouracil on lesions on evangelical. OA of knees - pt to try voltaren gel. 06/25/2013 Appointment: Nay Martinez WPtel: [phone] [place] Follow up 06/25/2013 Patient Education: Patient Medication [...] acute conerns. 03/26/2013 Appointment: Nay Martinez WPtel: [phone] [facility] [place] Follow up 03/26/2013 Patient Education: Patient Medication Summary Completed 03/26/2013 Patient Education: Hypertension Completed 03/26/2013 Appointment: Rosa Aguilar WPtel: [phone] [phone] Nurse Visit 01/14/2013 Patient Education: Patient Medication Summary Completed 01/14/2013 Visit Plan: Wound Instructions - Pt was instruced to keep the wound clean, wash with antibacterial soap, use triple antibiotic ointment, call if redness, pustular drainage, or any other acute conerns. 12/25/2012 Appointment: Rosa Aguilar WPtel: [phone] [phone] Surgical Procedure 12/25/2012 Patient Education: Patient Medication [...] weak. 11/20/2012 Appointment: Nay Martinez WPtel: [phone] [facility] Follow up 11/20/2012 Patient Education: Patient Medication [...] every days. 08/21/2012 Appointment: Nay Martinez WPtel: [address] [place], [place] [phone] Follow up 08/21/2012 Patient Education: Hypertension Completed 08/21/2012 Patient Education: Patient Medication Summary Completed 08/21/2012 Visit Plan: Subdural hematoma-recen t fall-decreased in size with tiny acute component-plan to repeat CT in 2 weeks Low back vwpd-myacaeqtwpz-WS joint Injection today in the office - Pt was given post - injection instructions. The pt has been advised to use antiinflammatories post injection today, ice to the injected site, call if redness, warmth, or increased pain occurs at the site of injection. 06/28/2012 Appointment: Rosa Aguilar WPtel: [address] [place], [place] [phone] [place] [address] 06/28/2012 Patient Education: Patient Medication Summary Completed [...] this week. 05/21/2012 Appointment: Nay Martinez WPtel: [address] [place], [place] [phone] [facility] follow up 05/21/2012 Patient Education: Patient Medication Summary Completed 05/21/2012 Patient Education: Hypertension Completed 05/21/2012 Appointment: Nay Martinez WPtel: [address] [place], [place] [phone] Follow up 05/15/2012 Visit Plan: Fall-sudden onset of ri ght lower extremity weakness-Dr Martinez in to evaluate patient-plan to admit for observation and further work up which includes a STAT CT of the head and labs. Patient and verbalize understanding. 04/26/2012 Appointment: [facility]el[phone] [facility], fall 1 month ago Other 04/26/2012 Patient Education: Patient Medication Summary Completed 04/26/2012 Visit Plan: Hypertension - well con corey - continue with current medications, continue with [...] of treatment. 02/14/2012 Appointment: Nay [facility]Ptel[phone] Established Patient Preventative visit 02/14/2012 Patient Education: [...] Weight loss - discussed the need for Knickerbocker to not loose more weight. He reports that he has actually gained weight in the past few weeks since moving to [facility]. Knee pain - has improved with flector patches, no change in current treatment. HTN - controlled - no change in medications. I have encouraged Omid to check his blood pressures oc casionally at home and bring in his list at his next office visit. 10/11/2011 Appointment: Nay Martinez WPtel: [phone] [facility] Other 10/11/2011 Patient Education: Patient Medication Summary [...] OF BLOOD. 07/12/2011 Appointment: Nay Martinez WPtel: [address] [place] [address] Other 07/12/2011 Patient Education: Patient Medication Summary Completed 07/12/2011 Patient Education: High Blood Pressure: Essential Hypertension Completed 07/12/2011 Visit Plan: Knee pain- uncontrolled - but improving, recommend watchful waiting and to use FLECTOR PATCH, 1/4 of a patch and change twice daily.. Call if the pain worsens. 05/11/2011 Appointment: Nay Martinez WPtel: [facility] Other 05/11/2011 Patient Education: Patient Medication Summary [...] no change in medications. 04/12/2011 Appointment: Nay Martinez WPtel: [phone] [facility] Other 04/12/2011 Patient Education: Patient Medication Summary Completed 04/12/2011 Patient Education: High Blood Pressure: Essential Hypertension Completed 04/12/2011 Visit Plan: Hypertension - well con trolled [...] treatment at this time. 01/11/2011 Appointment: Nay Martinez WPtel: [address] [place], [place] [phone] Other 01/11/2011 Patient Education: Patient Medication Summary Completed 01/11/2011 Referral: Cris Egan Referral Relationship Referral: Dayron Ballesteros Referral Appointment Requested Referral: Kings Valles WPtel: [phone] [facility] Referral Relationship Referral: Carl Yu Referral Relationship Instructions Comment Renal ultrasound on 07/27/16 at 12noon. Hypertension [...] check INR on monday of this week. COLONOSCOPY-DR GRACE ON-WILL DISCUSS WITH DR MARTINEZ [...] gel. 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 . Dried bloody debri s in left ear - removed with alligator forceps, ear currette - pt to use mineral oil in the ear. . Knee pain- uncontr olled- but improving, recommend watchful waiting and to use FLECTOR PATCH, 1/4 of a patch and change twice daily.. Call if the pain worsens. . Blood in ears - th is [...] days - RTC in 2 wks . Hypertension - wel l controlled - [...] to assure normal liver response to medications. use mineral oil in t he left [...] - increase protein, increase fat intake. . Lower leg pain - r x for voltaren gel to be used on right knee four times daily to alleviate pain in knee. Pt to use walker - RX for rolator walker. . Hypertension - wel l controlled - [...] Continue with current plan of treatment. . Constipation -disc ussed with pt - [...] call with his pressures on Monday morning. use 2 ML of mineral oil or [...] congestion - rx [facility]on[facility] - rx was called to [facility]. Blood in ears - due to pt using qtips aggressively - recommended pt to use mineral oil in ears nightly x 10 days - return to clinic in 10 days for my evaluation to see if there are any residual lesions in his ears once the dried blood is out of the ear canals. . Hypertension - wel l controlled - [...] Continue with current plan of treatment. . Subdural hematoma- recent fall-decreased in size with tiny acute component-plan to repeat CT in 2 weeks Low back mmys-vwjtfoyxwzf-VZ joint Injection today in the office - Pt was given post - injection instructions. The pt has been advised to use antiinflammatories post injection today, ice to the injected site, call if redness, warmth, or increased pain occurs at the site of injection. . Celllulitis-[facility] ed-continue treatment-return in 2 weeks for follow up . Blood in ears - re moved the dried blood shard that is residual in left ear - no other treatment changes needed. joint juice, glucosa mine - at [facility] ask about welnesse liquid Glucosamine and chondroitin. increase the omeprazole to one pill twice daily. Monday at 10AM - Dr. Yu - [place] across the street from Dr. Valles's office [...] Omid will need this lesion surgically removed. joint juice, glucosa mine - at [facility] ask about welnesse liquid Glucosamine and chondroitin. increase the omeprazole to one pill twice daily. Monday at 10AM - Dr. Gigi Colbert across the street from Dr. Valles's office [...] Omid will need this lesion surgically removed. HOLD OMEPRAOZLE WHIL E ON THE NEXIUM [...] not improving. Cellulitis-almost completely healed-continue current treatement. Try tiger balm to lo w back. [...] improve. Will send paperwork for back brace. . Memory loss- sympt oms slightly worsening [...] Htn- controlled, no change in medications. . Hypertension - wel l controlled [...] 13.3mg patches to be changed every days. . Hypertension - wel l controlled - [...] current plan of treatment. Skin lesion on evangelical - pt to use flurouracil on lesions on evangelical. OA of knees - pt to try voltaren gel. . Wound Instructions - Pt was instruced to keep the wound clean, wash with antibacterial soap, use triple antibiotic ointment, call if redness, pustular drainage, or any other acute conerns. . Hypertension - wel l controlled - continue with current medications, continue with no added salt diet. Pt has been encouraged to exercise daily. The pt has been advised to call the office if there are any acute concerns about change in blood pressure readings at home. Knee pain - Pt desires to have his knee operated on at [facility], I have placed a phone call [...] MONDAY FOR A COUMADIN CHECK OF BLOOD. discussed colonoscop y -patient not interested . [...] for INR is between 2.0 and 3.5. use mineral oil in t he left [...] protein, increase fat intake. . Hypertension - we ll controlled - [...] changes. Continue with current plan of treatment. STOP THE 5-FU START BACTROBAN CREAM TWICE DAILY . Cellulitis - start oral abx as directed, return to clinic as previously directed, call for acute change in symptoms, worsening redness, warmth, discharge. Stop the 5-FU WEIGHT NEXT WEEK, CA LL INTO THE OFFICE WITH THE WEIGHT.. Alzheimer's Dementia - Pt with slowly progressive pattern. I have discussed with pt and family the prognosis of this disease state and the need for the family to anticipate further decline with behavior changes. Continue with current plan of treatment. Weight loss - discussed the need for Knickerbocker to not loose more weight. He reports that he has actually gained weight in the past few weeks since moving to [facility]. Knee pain - has improved with flector [...]
--- OUTSIDE RECORDS SUMMARY | 2019-07-11 12:39 | XMS REPORT | CCD ---
Author Author Omid Martinez Organization Nay Martinez MD, [facility] Address [address] [place] [address] Phone Care Team Providers Care Clerical Aide Name Role Phone Nay Martinez PP Unavailable CCM Unavailable Summary Purpose Interface Exchange Insurance Providers Payer name Policy type / Coverage type Covered green party ID Effective Begin Date Effective End Date WPS Medicare Part B Medicare Part B [id number] Unknown [facility] icare Part B [id number] Un known Family history Mother Diagnosis Age At Onset No Family Disease Entered N/A Father Diagnosis Age At Onset No Family Disease Entered N/A Brother Diagnosis Age At Onset No Family Disease Entered N/A Social History Social History Element Codes Description Effective Dates Number of children Unknown 3 sons 02/14/2018 Living arrangements Unknown Assisted Living Moved in August 2011 to assisted living facility [facility]. 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 04/11/[address]: [id number] Nonsmoker 04/11/2011 Has the patient ever used [...] ICD-9: 530.81 Active 08/22/2013 Unknown Cellulitis of lutheran ICD-9: 682.0 Active 07/29/2013 Unknown ACUTE BRONCHITIS [...] reflux ICD-9: 530.81 08/22/2013 Active Cellulitis of lutheran ICD-9: 682.0 07/29/2013 Active ACUTE BRONCHITIS ICD-9: [...] Reli ef 50 mcg/actuation nasal spray,suspension RxNorm: 1952469 1 [place] NASAL BID 06/26/2018 07/25/2018 Inactive Namenda 10 mg tablet RxNorm: 463001 1 Tablet(s) PO BID 02/07/2018 09/04/2018 Active omeprazole 20 mg cap mino,delayed release RxNorm: 717296 1 Capsule(s) PO BID 02/07/2018 09/04/2018 Ac tive omeprazole 20 mg cap mino,delayed release RxNorm: 500742 1 Capsule(s) PO BID 01/25/2018 02/06/2018 In active ropinirole 1 mg tablet RxNorm: 336711 1 Tablet(s) PO daily 01/17/2018 07/10/2019 Active Zyrtec 10 mg tablet RxNorm: 1327479 1 Tablet(s) PO daily 11/08/2017 06/05/2018 Inactive atorvastatin 20 mg t ablet RxNorm: 492288 1 Tablet(s) PO daily 08/09/2017 03/06/2018 Inactive Namenda 10 mg tablet RxNorm: 016913 1 Tablet(s) PO BID 07/24/2017 10/21/2017 Inactive Insurance denied Namenda XR 28mg Namenda 10 mg tablet RxNorm: 422240 1 Tablet(s) PO BID 07/24/2017 07/23/2017 Inactive Insurance denied Namenda XR 28mg Cerefolin NAC 600 mg -2 mg-6 mg tablet RxNorm: TAKE ONE CAPLET BY MOUTH ON E TIME DAILY 07/11/2017 07/05/2018 Inactive Aricept 10 mg tablet RxNorm: 118682 1 Tablet(s) PO daily 06/01/2017 05/26/2018 Inactive Aricept 10 mg tablet RxNorm: 089244 1 Tablet(s) PO daily 06/01/2017 05/31/2017 Inactive Cerefolin NAC 600 mg -2 mg-6 mg tablet RxNorm: TAKE ONE TABLET BY MOUTH ON E TIME DAILY 07/06/2016 06/30/2017 Inactive fluorouracil 5 % top ical cream RxNorm: 230473 1 Application TOP luz ly use daily x 1 week, then stop use, let tissue heal x1wk, if still dry patchy, then restart the medication x 1 week 01/29/2016 02/07/2016 Inactive omeprazole 20 mg cap mino,delayed release RxNorm: 702470 1 Capsule(s) PO BID 01/20/2015 06/18/2015 In active Bactroban 2 % topica l cream RxNorm: 459912 1 Application TOP BID as needed 12/18/2014 03/30/2015 In active Cerefolin NAC 600 mg -2 mg-6 mg tablet RxNorm: 1 Tablet(s) PO daily 07/01/2014 06/25/2015 Inactive [SAVINGS FOR NON-COVERED DRUGS -- BIN:00 0282, PCN: [id number], Group: XXXXX, ID# [id number], Questions: . THIS IS NOT INSURANCE.] Kenalog 40 mg/mL tess pension for injection RxNorm: 9275318 Milliliter(s) Inj 04/01/2014 04/01/2014 In active Namenda XR 7 mg-14 m g-21 mg-28 mg capsule,sprinkle,ER 24hr,dose pack RxNorm: 526589 1 Capsule(s) PO daily 10/15/2013 11/13/2013 Inactive Namenda XR 28 mg cap mino sprinkle,ER 24hr RxNorm: 812823 1 Capsule(s) PO daily 10/15/2013 07/23/2017 In active Bactrim DS 800 mg-16 0 mg tablet RxNorm: 531118 1/2 Tablet(s) PO dale y 10/15/2013 03/30/2015 In active Voltaren 1 % topical gel RxNorm: 900179 4 Gram(s) TOP QID 09/11/2013 01/08/2014 Inactive dispense 5 tubes Bactroban 2 % topica l cream RxNorm: 149519 1 Application TOP BID 07/29/2013 08/04/2013 Inactive ciprofloxacin 500 mg tablet RxNorm: 779430 1 Tablet(s) PO BID 07/29/2013 08/04/2013 Inactive fluorouracil 5 % top ical cream RxNorm: 708493 1 Application TOP luz ly use daily x 1 week, then stop use, let tissue heal x1wk, if still dry patchy, then restart the medication x 1 week 06/25/2013 07/04/2013 Inactive levofloxacin 500 mg tablet RxNorm: 733479 1 Tablet(s) PO daily 03/26/2013 03/30/2013 Inactive Cerefolin NAC 600 mg -2 mg-6 mg tablet RxNorm: 1 Tablet(s) PO daily 11/05/2012 10/30/2013 Inactive Kenalog 40 mg/mL Tess p for Injection RxNorm: 2464789 1 Milliliter(s) Inj 06/29/2012 06/29/2012 In active Exelon 9.5 mg/24 ricki r Transderm 24 hr Patch RxNorm: 756604 Patch 24 hr TD APPLY 1 PATCH DAILY DIRECTED 04/25/2012 08/20/2012 Inactive omeprazole 20 mg cap mino,delayed release RxNorm: 502552 1 Capsule(s) PO daily 04/09/2012 04/03/2013 In active omeprazole 20 mg cap mino,delayed release RxNorm: 988998 Capsule(s) PO TAKE 1 CAPSULE BY MOUTH EVERY DAY 04/09/2012 01/19/2015 Inactive warfarin 4 mg tablet RxNorm: 911667 1 Tablet(s) PO 11/28/2011 11/21/2012 Inactive TAKE 1 TABLET BY MOUTH DAILY Cerefolin NAC 600 mg -2 mg-6 mg tablet RxNorm: 1 Tablet(s) PO daily 11/28/2011 11/04/2012 Inactive warfarin 4 mg tablet RxNorm: 594192 Tablet(s) PO 08/07/2011 11/27/2011 Inactive TAKE 1 TABLET BY MOUTH DAILY Flector 1.3 % Adhesi ve Patch RxNorm: 447455 1 Application TOP BID 07/12/2011 02/06/2012 Inactive levofloxacin 500 mg Tab RxNorm: 626356 1 Tablet(s) PO daily 07/12/2011 07/16/2011 Inactive nystatin 100,000 uni t/mL Oral Susp RxNorm: 764909 3 Milliliter(s) BUCC TID 07/12/2011 07/21/2011 In active lisinopril 20 mg Tab RxNorm: 437956 1 Tablet(s) PO daily 04/12/2011 04/05/2012 Inactive TAKE ONE TABLET BY MOUTH DAILY;Patient requests 90 day supply omeprazole 20 mg cap mino,delayed release RxNorm: 977275 1 Capsule(s) PO daily 04/12/2011 04/05/2012 In active Namenda 10 mg Tab RxNorm: 875340 1 Tablet(s) PO BID 04/12/2011 04/05/2012 Inactive metoprolol succinate ER 50 mg 24 hr Tab RxNorm: 534932 1 Tablet(s) PO daily 04/12/2011 04/05/2012 In active ropinirole 1 mg Tab RxNorm: 822226 1 Tablet(s) PO daily 04/12/2011 04/05/2012 Inactive TAKE 1 TABLET BY MOUTH EVERY NIGHT AT BE DTIME;Patient requests 90 day supply Bactrim DS 800 mg-16 0 mg Tab RxNorm: 264025 1/2 Tablet(s) PO daily 04/12/2011 04/05/2012 Inactive Exelon 9.5 mg/24 ricki r Transderm 24 hr Patch RxNorm: 211724 1 Patch TD daily 04/12/2011 04/05/2012 In active melatonin 3 mg Tab RxNorm: 106961 1 Tablet(s) PO QHS 04/11/2011 No Stop Date Active Fish Oil 900 mg-1,40 0 mg Cap, Delayed Release RxNorm: 1 Capsule(s) PO BID 04/11/2011 10/27/2015 In active Tylenol Arthritis 65 0 mg Tab RxNorm: 4269398 2 Tablet(s) PO QAM 04/11/2011 10/27/2015 Inactive Bactrim DS 800 mg-16 0 mg Tab RxNorm: 404473 1/2 Tablet(s) PO daily 04/11/2011 04/11/2011 Inactive lisinopril 20 mg Tab RxNorm: 506466 Tablet(s) PO 04/07/2011 04/11/2011 Inactive TAKE ONE TABLET BY MOUTH DAILY;Patient requests 90 day supply ropinirole 1 mg Tab RxNorm: 104117 Tablet(s) PO 04/07/2011 04/11/2011 Inactive TAKE 1 TABLET BY MOUTH EVERY NIGHT AT BEDTIME;Patient requests 90 day supply lisinopril 20 mg Tab RxNorm: 738104 1 Tablet(s) PO daily 04/06/2011 04/06/2011 Inactive ropinirole 1 mg Tab RxNorm: 388545 1 Tablet(s) PO daily 04/06/2011 04/06/2011 Inactive Influenza Virus Vacc ine 0.5 mL RxNorm: IM 01/11/2011 01/11/2011 Inactive Osteo Bi-Flex Triple Strength RxNorm: 2 PO daily No S tart Date Active Bactrim DS 800 mg-16 0 mg tablet RxNorm: 494836 1/2 Tablet(s) PO dale y No Start Date Active isosorbide mononitra te ER 30 mg tablet,extended release 24 hr RxNorm: 953772 1 Tablet(s) PO daily No Start Date Active Vitamin B-12 5,000 m cg/mL sublingual drops RxNorm: 7619079 1 Milliliter(s) SL d aily No Start Date Active Tylenol Extra Streng th 500 mg tablet RxNorm: 714556 2 Tablet(s) PO BID No Start Date Active aspirin 81 mg Tab, D elayed Release RxNorm: 838836 1 Tablet(s) PO daily No Start Date Active warfarin 4 mg tablet RxNorm: 712864 1 Tablet(s) PO daily No Start Date Active Centrum Silver Oral RxNorm: Oral No Start Date Active lisinopril 20 mg tablet RxNorm: 219427 1 Tablet(s) PO daily No Start Date Active Fish Oil 300 mg-1,00 0 mg capsule RxNorm: 707382 1 Capsule(s) PO daily No Start Date Active Calcium 500 + D (D3) Oral RxNorm: Oral No Start D ate Active Exelon 13.3 mg/24 ho ur Transderm 24 hr Patch RxNorm: 5938201 TD No Start Date Active metoprolol succinate ER 50 mg tablet,extended release 24 hr RxNorm: 242742 1 Tablet(s) PO daily No Start Date Active Cerefolin NAC 600 mg -2 mg-6 mg tablet RxNorm: 1 Tablet(s) PO daily No Start Date 11/27/2011 Inactive Lipitor 40 mg tablet RxNorm: 288479 1 Tablet(s) PO daily ordered by dr broussard No Start Date 08/08/2017 Inactive lisinopril 20 mg Tab RxNorm: 004713 1 Tablet(s) PO daily No Start Date 04/05/2011 Inactive hydrocodone-acetamin ophen 5 mg-325 mg tablet RxNorm: 9428657 1 Tablet(s) PO BID No Start Date 01/19/2015 Inactive omeprazole 20 mg Cap , Delayed Release RxNorm: 373037 1 Capsule(s) PO daily No Start Date 04/11/2011 Inactive metoprolol succinate ER 50 mg 24 hr Tab RxNorm: 011159 1 Tablet(s) PO daily No Start Date 04/11/2011 Inactive Exelon 9.5 mg/24 ricki r Transderm 24 hr Patch RxNorm: 878869 1 Patch TD daily No Start Date 04/11/2011 Inactive warfarin 4 mg Tab RxNorm: 471615 1 Tablet(s) PO daily No Start Date 08/06/2011 Inactive multivitamin Oral RxNorm: Oral No Start Date 07/26/2016 Inactive melatonin 3 mg Tab RxNorm: 082016 Oral No Start Date 04/10/2011 Inactive ropinirole 1 mg tablet RxNorm: 349552 1 Tablet(s) PO daily No Start Date 01/16/2018 Inactive iron 134 mg (27 mg i iron) Tab RxNorm: 331177 1 Tablet(s) PO daily No Start Date 10/26/2015 Inactive Fish Oil 900 mg-1,40 0 mg Cap, Delayed Release RxNorm: 1 Capsule(s) PO daily No Start Date 04/10/2011 Inactive Bactrim DS 800 mg-16 0 mg Tab RxNorm: 643856 Oral No S tart Date 04/10/2011 Inactive metoprolol tartrate 50 mg Tab RxNorm: 486526 1 Tablet(s) PO daily No Start Date 04/10/2011 Inactive Tylenol Arthritis 65 0 mg Tab RxNorm: 3734665 Oral No Start Date 04/10/2011 Inactive Namenda 10 mg Tab RxNorm: 010010 1 Tablet(s) PO BID No Start Date 04/11/2011 Inactive ropinirole 1 mg Tab RxNorm: 512380 1 Tablet(s) PO daily No Start Date 04/05/2011 Inactive Medication Administered Medication Codes Instruc tions Start Date Status Kenalog 40 mg/mL suspension for injection RxNorm: 7702396 Milliliter 04/01/2014 No longer Active Kenalog 40 mg/mL Susp for Injection RxNorm: 9144839 1Milliliter 06/29/2012 N o longer Active Influenza [...] 599.0 07/12/2011 Abdominal pain ICD-9: 789.00 07/12/2011 Ady ICD-9: 112.0 06/29 Reason For Visit Reason [...] Observation Code Item Item Code Result Date Pt [id number] PT 30.6 seconds 08/29/2018 Pt Nwa5636 INR 3.0 08/29/2018 Pt Eyv7175 Low Intensity - 1.5-2.0 08/29/2018 Pt Gtf3739 Mod intensity - 2.0-3.0 08/29/2018 Pt Fyz0137 Hi intensity - 3.0-4.0 08/29/2018 Comp Metabolic Swm120 NA 140 mEq/L 08/27/2018 Comp Metabolic Mdw830 K 6.1 mEq/L 08/27/2018 Comp Metabolic Pal515 CL 110 mEq/L 08/27/2018 Comp Metabolic Msr909 CO2 22.0 mEq/L 08/27/2018 Comp Metabolic Vrq472 AN ION GAP 14 08/27/2018 Comp Metabolic Txa632 GL UCOSE 77 mg/dL 08/27/2018 Comp Metabolic Val402 Cr eat 2.3 mg/dL 08/27/2018 Comp Metabolic Odl841 eG FR 29 ml/min/1.73m2 08/27 Comp Metabolic Tir891 BUN 58 mg/dL 08/27/2018 Comp Metabolic Tdc886 B/ C Ratio 25.0 Ratio 08/27/2018 Comp Metabolic Oka236 CA LCIUM 9.2 mg/dL 08/27/2018 Comp Metabolic Pec307 AL K PHOS 41 U/L 08/27/2018 Comp Metabolic Szt477 T(SGOT) 62 U/L 08/27/2018 Comp Metabolic Ooj343 AL T(SGPT) 40 U/L 08/27/2018 Comp Metabolic Bak033 BI LI T 1.0 mg/dL 08/27/2018 Comp Metabolic Feg638 AL BUMIN 4.0 g/dL 08/27/2018 Comp Metabolic Xdq790 TP RO 5.9 g/dL 08/27/2018 Comp Metabolic Kvn974 GL OB 1.9 g/dL 08/27/2018 Comp Metabolic Wnl296 A/ G Ratio 2.1 Ratio 08/27/2018 Comp Metabolic Ddg005 Os mo 294 mOsmo 08/27/2018 Lipid Ord30 CHOL 101 mg/dL 08/27/2018 Lipid Ord30 HDL 56.0 mg/dl 08/27/2018 Lipid Ord30 TRIG 97 mg/dL 08/27/2018 Lipid Ord30 LDL 26 mg/dL 08/27/2018 Lipid Ord30 C/HDL 1.8 Ratio 08/27/2018 Pt Wzn0615 PT 59.2 Result Verified By Repeat Analysis seconds 08/27/2018 Pt Uqt9598 INR 6.8 Result Verified By Repeat Analysis 08/27/2018 Pt Psv2341 Low Intensity - 1.5-2.0 08/27/2018 Pt Ivw1674 Mod intensity - 2.0-3.0 08/27/2018 Pt Nev9113 Hi intensity - 3.0-4.0 08/27/2018 Comp Metabolic Kbq447 NA 143 mEq/L 08/08/2017 Comp Metabolic Hec722 K 5.3 mEq/L 08/08/2017 Comp Metabolic Oaf231 CL 112 mEq/L 08/08/2017 Comp Metabolic Wqt618 CO2 27.0 mEq/L 08/08/2017 Comp Metabolic Mrp328 AN ION GAP 9 08/08/2017 Comp Metabolic Yjv085 GL UCOSE 88 mg/dL 08/08/2017 Comp Metabolic Xwz196 Cr eat 1.1 mg/dL 08/08/2017 Comp Metabolic Kje952 eG FR 71 ml/min/1.73m2 08/08 Comp Metabolic Zbg179 BUN 26 mg/dL 08/08/2017 Comp Metabolic Doc040 B/ C Ratio 24.5 Ratio 08/08/2017 Comp Metabolic Tng285 CA LCIUM 9.0 mg/dL 08/08/2017 Comp Metabolic Mru990 AL K PHOS 49 U/L 08/08/2017 Comp Metabolic Kdl886 T(SGOT) 32 U/L 08/08/2017 Comp Metabolic Szb174 AL T(SGPT) 25 U/L 08/08/2017 Comp Metabolic Abm389 BI LI T 0.7 mg/dL 08/08/2017 Comp Metabolic Ezh404 AL BUMIN 4.2 g/dL 08/08/2017 Comp Metabolic Our904 TP RO 6.0 g/dL 08/08/2017 Comp Metabolic Bzg486 GL OB 1.9 g/dL 08/08/2017 Comp Metabolic Qqw090 A/ G Ratio 2.2 Ratio 08/08/2017 Comp Metabolic Niy312 Os mo 289 mOsmo 08/08/2017 Lipid Ord30 CHOL 110 mg/dL 08/08/2017 Lipid Ord30 HDL 57.0 mg/dl 08/08/2017 Lipid Ord30 TRIG 83 mg/dL 08/08/2017 Lipid Ord30 LDL 36 mg/dL 08/08/2017 Lipid Ord30 C/HDL 1.9 Ratio 08/08/2017 Comp Metabolic Unc021 NA 141 mEq/L 01/28/2016 Comp Metabolic Lwp677 K 4.5 mEq/L 01/28/2016 Comp Metabolic Ftw091 CL 111 mEq/L 01/28/2016 Comp Metabolic Yxk388 CO2 27.0 mEq/L 01/28/2016 Comp Metabolic Sch243 AN ION GAP 8 01/28/2016 Comp Metabolic Amh647 GL UCOSE 88 mg/dL 01/28/2016 Comp Metabolic Emk398 Cr eat 1.1 mg/dL 01/28/2016 Comp Metabolic Rch253 eG FR 69 ml/min/1.73m2 01/27 Comp Metabolic Trv632 BUN 23 mg/dL 01/28/2016 Comp Metabolic Pit296 B/ C Ratio 21.3 Ratio 01/28/2016 Comp Metabolic Dgj463 CA LCIUM 9.0 mg/dL 01/28/2016 Comp Metabolic Nay347 AL K PHOS 48 U/L 01/28/2016 Comp Metabolic Cjx721 T(SGOT) 28 U/L 01/28/2016 Comp Metabolic Txh741 AL T(SGPT) 20 U/L 01/28/2016 Comp Metabolic Skw863 BI LI T 0.8 mg/dL 01/28/2016 Comp Metabolic Uvn896 AL BUMIN 4.0 g/dL 01/28/2016 Comp Metabolic Ywt336 TP RO 6.0 g/dL 01/28/2016 Comp Metabolic Ltf121 GL OB 2.0 g/dL 01/28/2016 Comp Metabolic Knp609 A/ G Ratio 2.0 Ratio 01/28/2016 Comp Metabolic Dut979 Os mo 284 mOsmo 01/28/2016 Lipid Ord30 [...] 34.5 pg 01/28/2016 Cbc With Differential Ord2 [place]% 10.0 % 01/28/2016 Cbc With Differential Ord2 [...] 1.17 K/ul 01/28/2016 Cbc With Differential Ord2 [place] ABS# 0.6 K/ul 01/28/2016 Cbc With Differential Ord2 Eos ABS# 0.1 K/ul 01/28/2016 Cbc With Differential Ord2 Baso ABS# 0.0 K/ul 01/28/2016 Total Psa Ord10 PSA 2.96 ng/mL 01/28/2016 Pt Hhn7712 PT 25.8 seconds 08/07/2015 Pt Tod0307 INR 2.5 08/07/2015 Pt Fks8281 Low Intensity - 1.5-2.0 08/07/2015 Pt Pcf6325 Mod intensity - 2.0-3.0 08/07/2015 Pt Cmk6161 Hi intensity - 3.0-4.0 08/07/2015 Lipid Ord30 CHOL 102 mg/dL 08/07/2015 Lipid Ord30 HDL 50.0 mg/dl 08/07/2015 Lipid Ord30 TRIG 73 mg/dL 08/07/2015 Lipid Ord30 LDL 37 mg/dL 08/07/2015 Lipid Ord30 C/HDL 2.0 Ratio 08/07/2015 Hepatic Gxh398 ALBUMIN 4.0 g/dL 08/07/2015 Hepatic Rbi777 TPRO 6.0 g/dL 08/07/2015 Hepatic Uia771 GLOB 2.0 g/dL 08/07/2015 Hepatic Ixe606 A/G Ratio 2.0 Ratio 08/07/2015 Hepatic Qmq505 ALK PHOS 47 U/L 08/07/2015 Hepatic Tyd469 ALT(SGPT) 20 U/L 08/07/2015 Hepatic Udv087 AST(SGOT) 26 U/L 08/07/2015 Hepatic Ful482 BILI T 0.6 mg/dL 08/07/2015 Hepatic Vph600 BILI D 0.2 mg/dL 08/07/2015 Hepatic Uiz947 BILI I 0.4 mg/dL 08/07/2015 Pt Zny2412 PT 24.3 seconds 12/22/2014 Pt Kms1406 INR 2.3 12/22/2014 Pt Hes3654 Low Intensity - 1.5-2.0 12/22/2014 Pt Pjc9194 Mod intensity - 2.0-3.0 12/22/2014 Pt Olf3328 Hi intensity - 3.0-4.0 12/22/2014 URINALYSIS NONAUTO W/O SCOPE 73960 Specific [place] 1.030 DateTime(Free Text in Aprima) URINALYSIS NONAUTO W/O SCOPE 59637 PH 6.5 DateTime(Free Ryan t in Aprima) URINALYSIS NONAUTO W/O SCOPE 67710 GLUCOSE neg DateTime(Free Ryan t in Aprima) URINALYSIS NONAUTO W/O SCOPE 02309 Protein trace DateTime(Free T ext in Aprima) URINALYSIS NONAUTO W/O SCOPE 80625 Blood 3+ DateTime(Free Text in Aprima) URINALYSIS NONAUTO W/O SCOPE 47763 Bilirubin neg DateTime(Free Ryan t in Aprima) URINALYSIS NONAUTO W/O SCOPE 33398 Ketones neg DateTime(Free Ryan t in Aprima) URINALYSIS NONAUTO W/O SCOPE 30613 Urobilinogen neg DateTime(Free Text in Aprima) URINALYSIS NONAUTO W/O SCOPE 37803 Nitrite neg DateTime(Free Ryan t in Aprima) URINALYSIS NONAUTO W/O SCOPE 79805 Leukocytes neg DateTime(Free Text in Aprima) Review [...] time 07/05/2018 None Full Exam - General 1995 Psychiatric mood and affect Overall: normal mood [...] inspection of skin Dermatitis: erythema 08/22/2013 right lutheran, no open are as, scabbed lesion healed [...] palp - head/face Location: on the right lutheran 08/08/2013 --Improved Full Exam - Dermatology Integument [...] palp - head/face Location: on the right lutheran 07/29/2013 None Full Exam - Dermatology Integument [...] inspection of skin Dermatitis: erythema 06/25/2013 left lutheran, with irritat ed center of lesion Full [...] mechanical 03/26/2013 None Full Exam - General 1995 Abdomen abdominal exam Overall: no tenderness 03/26/2013 None Full Exam - General 1995 Abdomen [...] unsteadiness 03/26/2013 None Full Exam - General 1995 Neurologic [...] inspection of skin Dermatitis: erythema 03/26/2013 left lutheran, with irritat ed center of lesion Full [...] lips 11/20/2012 None Full Exam - General 1994 Ears/Nose/Throat lips/teeth/gingiva Overall: no masses 11/20/2012 None [...] atraumatic 08/21/2012 None Full Exam - General 1995 Ears/Nose/Throat lips/teeth/gingiva Overall: no masses 08/21/2012 None Full Exam - General 1995 [...] joint 06/28/2012 None Full Exam - General 1995 Constitutional general appearance Overall: well developed 05/21/2012 None Full Exam - General 1995 Constitutional general appearance Overall: in no acute distress 05/21/2012 None Full Exam - General 1995 Constitutional general appearance Overall: well nourished 05/21/2012 None Full Exam - General 1994 Eyes pupils and irises Overall: pupils equal, round, reactive to light and accomodation 05/21/2012 None Full Exam - General 1995 [...] scar 07/12/2011 None Full Exam - General 1995 Musculoskeletal [...] affect 07/12/2011 None Full Exam - General 1995 [...] VACC PRSV FREE I NC ANTIG CPT-4: 04851 01/25/2017 PPPS, SUBSEQ VISIT CPT- 4: G0439 08/05/2016 ADMIN PNEUMOCOCCAL V ACCINE SNOMED CT: 50930630 CPT-4: G0009 04/26/2016 Pneumococcal Polysac charide Vaccine, 23-Valent, Ad Formatting Model/CDA Sections, Assigned to/Raquel Shelley CPT-4: 05148Yzmmdti 04/26/2016 ADMIN INFLUENZA VIRU S VAC CPT-4: G0008 01/27/2016 FLU VACC 4 JULISA 3 YRS PLUS IM Formatting Model/CDA Sections, Assigned to/Raquel Shelley SNOMED CT: 42615140 CPT-4: 20343Xgmpuqf 01/27/2016 ADMIN INFLUENZA VIRU S VAC Formatting Model/CDA Sections, Assigned to CPT-4: K1109Ykkycpu 01/20/2015 FLU VACC 4 JULISA 3 YRS PLUS IM SNOMED CT: 60097983 CPT-4: 40886 01/20/2015 DRAIN/INJECT JOINT/B URSA CPT-4: 01685 04/01/2014 TRIAMCINOLONE ACET I [place] NOS CPT-4: J3301 04/01/2014 URINALYSIS NONAUTO W /O SCOPE CPT-4: 05123 04/01/2014 ADMIN INFLUENZA VIRU S VAC Assigned to/Raquel Shelley CPT-4: L9287Vntepgl 01/13/2014 FLU VAC NO PRSV 4 VA L 3 YRS+ Assigned to/Raquel Shelley CPT-4: 00875Jwherpo 01/13/2014 PRESCRIP TRANSMIT A ERX SY CPT-4: G8553 03/26/2013 ADMIN INFLUENZA VIRU S VAC CPT-4: G0008 01/14/2013 FLULAVAL VACC, 3 YRS & >, IM CPT-4: Q2036 01/14/2013 DESTRUCT PREMALG LESION CPT-4: 92285 12/25/2012 PRESCRIP TRANSMIT A ERX SY CPT-4: G8553 08/21/2012 DRAIN/INJECT JOINT/B URSA CPT-4: 56426 06/28/2012 TRIAMCINOLONE ACET I [place] NOS CPT-4: J3301 06/28/2012 ADMIN INFLUENZA VIRU S VAC CPT-4: G0008 02/14/2012 FLULAVAL VACC, 3 YRS & >, IM CPT-4: Q2036 02/14/2012 URINALYSIS NONAUTO W /O SCOPE CPT-4: 84187 07/12/2011 PRESCRIP TRANSMIT A ERX SY CPT-4: G8553 07/12/2011 ADMIN INFLUENZA VIRU S VAC CPT-4: G0008 01/11/2011 FLULAVAL VACC, 3 YRS & >, IM CPT-4: Q2036 01/11/2011 Vital Signs Date Vital 07/25/2018 Blood Pressure 1: 126/70 Code: 8480-6 BMI: 21.1 Code: 10215-1 Heart Rate 1: 57 bpm Height: 5'7" SpO2: 99% Weight: 135 lbs 07/05/2018 Blood Pressure 1: 124/60 Code: 8480-6 BMI: 21.3 Code: 54334-9 Heart Rate 1: 68 bpm Height: 5'7" SpO2: 97% Weight: 135 lbs 14 o z 06/26/2018 Blood Pressure 1: 128/76 Code: 8480-6 BMI: 21.6 Code: 32040-8 Heart Rate 1: 82 bpm Height: 5'7" SpO2: 95% Weight: 138 lbs 03/27/2018 Blood Pressure 1: 122/70 Code: 8480-6 BMI: 21.1 Code: 32888-2 Heart Rate 1: 76 bpm Height: 5'7" SpO2: 96% Weight: 135 lbs 02/14/2018 Blood Pressure 1: 102/58 Code: 8480-6 BMI: 21.5 Code: 02496-1 Heart Rate 1: 78 bpm Height: 5'7" SpO2: 98% Weight: 137 lbs 11/08/2017 Blood Pressure 1: 132/68 Code: 8480-6 BMI: 21.9 Code: 17954-9 Heart Rate 1: 66 bpm Height: 5'7" SpO2: 98% Weight: 140 lbs 08/11/2017 Blood Pressure 1: 118/68 Code: 8480-6 BMI: 22.2 Code: 89542-6 Heart Rate 1: 63 bpm Height: 5'7" SpO2: 98% Waist Measure (cm): 61 cm Weight: 142 lbs 08/09/2017 Blood Pressure 1: 11868 Code: 8480-6 BMI: 22.4 Code: 96980-8 Heart Rate 1: 60 bpm Height: 5'7" SpO2: 98% Weight: 143 lbs 04/11/2017 Blood Pressure 1: 122/68 Code: 8480-6 BMI: 23.0 Code: 96651-8 Heart Rate 1: 65 bpm Height: 5'7" SpO2: 98% Weight: 147 lbs 01/25/2017 Blood Pressure 1: 136/58 Code: 8480-6 BMI: 23.0 Code: 85670-2 Heart Rate 1: 63 bpm Height: 5'7" SpO2: 96% Weight: 147 lbs 12/21/2016 Blood Pressure 1: 112/52 Code: 8480-6 BMI: 23.0 Code: 40535-9 Heart Rate 1: 73 bpm Height: 5'7" SpO2: 97% Weight: 147 lbs 12/01/2016 Blood Pressure 1: 128/76 Code: 8480-6 BMI: 22.7 Code: 52505-5 Heart Rate 1: 67 bpm Height: 5'7" SpO2: 95% Weight: 145 lbs 10/25/2016 Blood Pressure 1: 128/70 Code: 8480-6 BMI: 23.5 Code: 77468-1 Heart Rate 1: 62 bpm Height: 5'7" SpO2: 96% Weight: 150 lbs 08/05/2016 Blood Pressure 1: 110/58 Code: 8480-6 BMI: 23.3 Code: 87982-0 Heart Rate 1: 65 bpm Height: 5'7" SpO2: 95% Waist Measure (cm): 102 cm Weight: 149 lbs 07/26/2016 Blood Pressure 1: 112/64 Code: 8480-6 BMI: 23.3 Code: 22986-1 Heart Rate 1: 62 bpm Height: 5'7" SpO2: 95% Weight: 149 lbs 04/26/2016 Blood Pressure 1: 124/68 Code: 8480-6 BMI: 23.8 Code: 11453-5 Heart Rate 1: 64 bpm Height: 5'7" SpO2: 98% Weight: 152 lbs 01/27/2016 Blood Pressure 1: 118/70 Code: 8480-6 BMI: 24.0 Code: 29800-2 Heart Rate 1: 64 bpm Height: 5'7" SpO2: 97% Weight: 153 lbs 10/27/2015 Blood Pressure 1: 114/60 Code: 8480-6 BMI: 23.7 Code: 97873-3 Heart Rate 1: 61 bpm Height: 5'7" SpO2: 97% Weight: 151 lbs 8 oz 06/30/2015 Blood Pressure 1: 102/60 Code: 8480-6 BMI: 23.9 Code: 75448-2 Heart Rate 1: 70 bpm Height: 5'7" SpO2: 97% Weight: 152 lbs 8 oz 03/31/2015 Blood Pressure 1: 122/64 Code: 8480-6 BMI: 23.2 Code: 65317-4 Heart Rate 1: 64 bpm Height: 5'7" SpO2: 97% Weight: 148 lbs 03/17/2015 Blood Pressure 1: 142/76 Code: 8480-6 BMI: 23.5 Code: 72543-6 Heart Rate 1: 64 bpm Height: 5'7" SpO2: 98% Weight: 150 lbs 01/20/2015 Blood Pressure 1: 128/64 Code: 8480-6 BMI: 22.9 Code: 97595-2 Heart Rate 1: 72 bpm Height: 5'7" SpO2: 96% Weight: 146 lbs 12/15/2014 Blood Pressure 1: 110/60 Code: 8480-6 BMI: 21.9 Code: 47410-1 Heart Rate 1: 88 bpm Height: 5'7" SpO2: 96% Weight: 140 lbs 09/30/2014 Blood Pressure 1: 146/70 Code: 8480-6 BMI: 23.5 Code: 84194-2 Heart Rate 1: 53 bpm Height: 5'7" SpO2: 94% Weight: 150 lbs 07/01/2014 Blood Pressure 1: 140/62 Code: 8480-6 BMI: 23.6 Code: 06080-3 Heart Rate 1: 70 bpm Height: 5'7" Weight: 151 lbs 04/01/2014 Blood Pressure 1: 118/78 Code: 8480-6 BMI: 24.5 Code: 59031-8 Heart Rate 1: 56 bpm Height: 5'7" Weight: 156 lbs 8 oz 01/13/2014 Blood Pressure 1: 138/64 Code: 8480-6 BMI: 24.4 Code: 61277-1 Heart Rate 1: 54 bpm Height: 5'7" SpO2: 96% Weight: 156 lbs 10/15/2013 Blood Pressure 1: 124/74 Code: 8480-6 BMI: 24.6 Code: 84557-9 Heart Rate 1: 60 bpm Height: 5'7" Weight: 157 lbs 09/11/2013 Blood Pressure 1: 120/62 Code: 8480-6 BMI: 23.6 Code: 29040-4 Heart Rate 1: 64 bpm Height: 5'7" Weight: 151 lbs 08/22/2013 Blood Pressure 1: 120/64 Code: 8480-6 BMI: 24.4 Code: 42527-5 Heart Rate 1: 64 bpm Height: 5'7" Weight: 156 lbs 08/08/2013 Blood Pressure 1: 102/62 Code: 8480-6 BMI: 24.7 Code: 71008-6 Heart Rate 1: 60 bpm Height: 5'7" Weight: 158 lbs 07/29/2013 Blood Pressure 1: 114/74 Code: 8480-6 Heart Rate 1: 60 bpm 06/25/2013 Blood Pressure 1: 128/70 Code: 8480-6 BMI: 24.1 Code: 76522-8 Heart Rate 1: 56 bpm Height: 5'7" SpO2: 98% Weight: 154 lbs 03/26/2013 Blood Pressure 1: 132/78 Code: 8480-6 BMI: 24.6 Code: 03701-2 Heart Rate 1: 60 bpm Height: 5'7" SpO2: 98% Temperature: 36.5 (C ) / 97.7 (F) Weight: 157 lbs 12/25/2012 Blood Pressure 1: 98/60 Code: 8480-6 Heart Rate 1: 64 bpm Weight: 160 lbs 11/20/2012 Blood Pressure 1: 136/80 Code: 8480-6 BMI: 24.6 Code: 72366-3 Heart Rate 1: 68 bpm Height: 5'7" Weight: 157 lbs 08/21/2012 Blood Pressure 1: 112/56 Code: 8480-6 BMI: 23.8 Code: 75070-9 Heart Rate 1: 60 bpm Height: 5'7" Weight: 152 lbs 06/28/2012 Blood Pressure 1: 128/82 Code: 8480-6 Heart Rate 1: 80 bpm Respiratory Rate: 20 bpm Weight: 149 lbs 05/21/2012 Blood Pressure 1: 116/64 Code: 8480-6 BMI: 23.6 Code: 13884-2 Heart Rate 1: 72 bpm Height: 5'7" Weight: 151 lbs 04/26/2012 Blood Pressure 1: 140/80 Code: 8480-6 Heart Rate 1: 76 bpm Respiratory Rate: 16 bpm Temperature: 36.7 (C) / 98.0 (F) Weight: 02/14/2012 Blood Pressure 1: 116/58 Code: 8480-6 BMI: 23.6 Code: 03613-6 Heart Rate 1: 64 bpm Height: 5'7" Respiratory Rate: 18 bpm Weight: 151 lbs 10/11/2011 Blood Pressure 1: 100/54 Code: 8480-6 Heart Rate 1: 60 bpm Respiratory Rate: 16 bpm Weight: 143 lbs 07/12/2011 Blood Pressure 1: 130/62 Code: 8480-6 BMI: 22.9 Code: 62998-7 Heart Rate 1: 62 bpm Height: 5'7" Respiratory Rate: 16 bpm Weight: 146 lbs 05/11/2011 Blood Pressure 1: 120/64 Code: 8480-6 BMI: 23.6 Code: 40811-0 Heart Rate 1: 72 bpm Height: 5'7" Respiratory Rate: 16 bpm Weight: 151 lbs 04/12/2011 Blood Pressure 1: 120/62 Code: 8480-6 BMI: 24.6 Code: 64207-3 Heart Rate 1: 60 bpm Height: 5'7" Respiratory Rate: 16 bpm Weight: 157 lbs 01/11/2011 Blood Pressure 1: 126/68 Code: 8480-6 BMI: 24.7 Code: 93586-4 Heart Rate 1: 50 bpm Height: 5'7" [...] consta nt 09/30/2014 None knee pain Quality salazari ng 09/30/2014 states it is bone on [...] Findings Denies dyspnea 01/13/2014 None hypertension Quality [facility] 10/15/2013 None hypertension Onset and Resolution [...] lesion Location on the forehead 07/29/2013 right lutheran skin lesion Onset and Resolution ongoing 07/29/2013 [...] down to 130lbs but since moving to [place] has gained some weight back hypertension Quality [...] remembering names 01/11/2011 None memory loss 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 P ATIENT, LEVEL III Diagnosis: Otalgia, left ear[ICD10: H92.02] Nay Martinez MD, [facility] CPT-4: 92146 07/25/2018 ([id number]) 38348 EST. P ATIENT, LEVEL III Diagnosis: Otalgia, left ear[ICD10: H92.02] [facility] CPT-4: 48707 07/05/2018 ([id number]) 67495 EST. P ATIENT, LEVEL III Diagnosis: Otorrhagia, bilateral[ICD10: H92.23] Nay Martinez MD, [facility] CPT-4: 28307 06/26/2018 ([id number]) 75158 EST. P ATIENT, LEVEL III Diagnosis: Essential (primary) hypertension[ICD10: I10] Diagnosis: Slow transit constipation[ICD10: K59.01] Nay Martinez MD, C CPT-4: 01060 03/27/2018 ([id number]) 54896 EST. P ATIENT, LEVEL III Diagnosis: Slow transit constipation[ICD10: K59.01] Diagnosis: Other hypotension[ICD10: I95.89] Nay Martinez MD, [facility] CPT-4: 07307 02/14/2018 ([id number]) 66202 EST. P ATIENT, LEVEL IV Diagnosis: Essential (primary) hypertension[ICD10: I10] Diagnosis: Alzheimer's disease with early onset[ICD10: G30.0] Diagnosis: Actinic keratosis[ICD10: L57.0] Nay Martinez MD, [facility] CPT-4: 61990 11/08/2017 ([id number]) 00079 EST. P ATIENT, LEVEL IV Diagnosis: Essential (primary) hypertension[ICD10: I10] Diagnosis: Mixed hyperlipidemia[ICD10: E78.2] Diagnosis: Alzheimer's disease with early onset[ICD10: G30.0] Nay Martinez MD, C CPT-4: 85664 08/09/2017 ([id number]) 03750 EST. P ATIENT, LEVEL IV Diagnosis: Essential (primary) hypertension[ICD10: I10] Diagnosis: Alzheimer's disease with early onset[ICD10: G30.0] Diagnosis: Mixed hyperlipidemia[ICD10: E78.2] Diagnosis: Pain in left knee[ICD10: M25.562] Nay Martinez MD, [facility] CPT-4: 92828 04/11/2017 ([id number]) 32025 EST. P ATIENT, LEVEL III Diagnosis: Essential (primary) hypertension[ICD10: I10] Diagnosis: Encounter for immunization[ICD10: Z23] Diagnosis: Alzheimer's disease with early onset[ICD10: G30.0] Nay Martinez MD, C CPT-4: 78460 01/25/2017 ([id number]) 92259 EST. P ATIENT, LEVEL III Diagnosis: Otalgia, left ear[ICD10: H92.02] Nay Martinez MD, [facility] CPT-4: 61950 12/21/2016 ([id number]) 79577 EST. P ATIENT, LEVEL IV Diagnosis: Essential (primary) hypertension[ICD10: I10] Diagnosis: Alzheimer's disease with early onset[ICD10: G30.0] Diagnosis: Abnormal weight loss[ICD10: R63.4] Nay Martinez MD, [facility] CPT- 4: 37606 12/01/2016 ([id number]) 43585 EST. P ATIENT, LEVEL IV Diagnosis: Essential (primary) hypertension[ICD10: I10] Diagnosis: Mixed hyperlipidemia[ICD10: E78.2] Nay Martinez MD, [facility] CPT- 4: 49299 10/25/2016 67178 EST. PATIENT, LEVEL IV Diagnosis: Essential (primary) hypertension[ICD10: I10] Diagnosis: Alzheimer's disease with early onset[ICD10: G30.0] Diagnosis: Pain in left knee[ICD10: M25.562] Diagnosis: Cyst of kidney, acquired[ICD10: N28.1] Nay Martinez MD, [facility] CPT-4: 80482 07/26/2016 ([id number]) 93211 EST. P ATIENT, LEVEL IV Diagnosis: Essential (primary) hypertension[ICD10: I10] Diagnosis: Alzheimer's disease with early onset[ICD10: G30.0] Rosa Martinez MD, [facility] CPT-4: 79274 04/26/2016 ([id number]) 63252 EST. P ATIENT, LEVEL IV Diagnosis: Essential (primary) hypertension[ICD10: I10] Diagnosis: Alzheimer's disease with early onset[ICD10: G30.0] Diagnosis: VACCIN FOR INFLUENZA[ICD10: Z23] Nay Martinez MD, [facility] CPT-4: 36335 01/27/2016 ([id number]) 96763 EST. P ATIENT, LEVEL IV Diagnosis: Essential (primary) hypertension[ICD10: I10] Diagnosis: Alzheimer's disease with early onset[ICD10: G30.0] Nay Martinez MD, [facility] CPT-4: 09694 10/27/2015 ([id number]) 86007 EST. P ATIENT, LEVEL IV Diagnosis: Essential (primary) hypertension[ICD10: I10] Diagnosis: Alzheimer's disease with early onset[ICD10: G30.0] Nay Martinez MD, C CPT-4: 23886 06/30/2015 ([id number]) 68810 EST. P ATIENT, LEVEL IV Diagnosis: Essential (primary) hypertension[ICD10: I10] Diagnosis: Alzheimer's disease with early onset[ICD10: G30.0] Nay Martinez MD, C CPT-4: 25553 03/31/2015 91273 EST. PATIENT, LEVEL III Diagnosis: Low back pain[ICD10: M54.5] Fern Martinez MD, [facility] CPT-4: 66601 03/17/2015 ([id number]) 26326 EST. P ATIENT, LEVEL IV Diagnosis: ESSENTIAL HYPERTENSION[ICD9: 401.9] Diagnosis: Encounter for long-term (current) use of anticoagulants[ICD9: V58.61] Diagnosis: Skin change[ICD9: 782.9] Diagnosis: Change in mole[ICD9: 216.9] Diagnosis: VACCIN FOR INFLUENZA[ICD9: V04.81] Nay Martinez MD, [facility] CPT- 4: 90667 01/20/2015 ([id number]) 88472 EST. P ATIENT, LEVEL IV Diagnosis: ESSENTIAL HYPERTENSION[ICD9: 401.9] Diagnosis: OSTEOARTHROSIS-MULT SITE[ICD9: 715.80] Diagnosis: Knee pain[ICD9: 719.46] Diagnosis: ENCNTR LONG-ANTICOAG USE[ICD9: V58.61] Nay Martinez MD, [facility] CPT-4: 74609 12/15/2014 ([id number]) 12416 EST. P ATIENT, LEVEL IV Diagnosis: ESSENTIAL HYPERTENSION[ICD9: 401.9] Diagnosis: OSTEOARTHROSIS-MULT SITE[ICD9: 715.80] Diagnosis: Knee pain[ICD9: 719.46] [facility] CPT-4: 07755 09/30/2014 ([id number]) 39481 EST. P ATIENT, LEVEL IV Diagnosis: Skin cancer[ICD9: 173.90] Diagnosis: ESSENTIAL HYPERTENSION[ICD9: 401.9] Diagnosis: ALZHEIMER'S DISEASE[ICD9: 331.0] Diagnosis: Knee pain[ICD9: 719.46] Nay Martinez MD, [facility] CPT-4: 72360 07/01/2014 ([id number]) 95452 EST. P ATIENT, LEVEL IV Diagnosis: ESSENTIAL HYPERTENSION[ICD9: 401.9] Diagnosis: Dysuria[ICD9: 788.1] Diagnosis: Knee pain, bilateral[ICD9: 719.46] Diagnosis: Osteoarthritis[ICD9: 715.90] Diagnosis: Dementia[ICD9: 294.8] Nay Martinez MD, [facility] CPT-4: 14657 04/01/2014 ([id number]) 28268 EST. P ATIENT, LEVEL IV Diagnosis: ESSENTIAL HYPERTENSION[ICD9: 401.9] Diagnosis: VACCIN FOR INFLUENZA[ICD10: Z23] Diagnosis: HYPERLIPIDEMIA[ICD9: 272.4] Diagnosis: ALZHEIMER'S DISEASE[ICD9: 331.0] Nay Martinez MD, [facility] CPT-4: 72625 01/13/2014 ([id number]) 91284 EST. [facility]: Dementia[ICD9: 294.8] Diagnosis: Alzheimer's dementia[ICD9: 331.0] Diagnosis: OSTEOARTHROSIS-MULT SITE[ICD9: 715.80] Diagnosis: ESSENTIAL HYPERTENSION[ICD9: 401.9] Nay Martinez MD, [facility] CPT- 4: 67471 10/15/2013 ([id number]) 25781 EST. P ATIENT, LEVEL III Diagnosis: Knee pain, acute[ICD9: 719.46] Diagnosis: Osteoarthritis[ICD9: 715.90] Diagnosis: Gait instability[ICD9: 781.2] Nay Martinez MD, [facility] CPT-4: 16498 09/11/2013 ([id number]) 96979 EST. P ATIENT, LEVEL III Diagnosis: CELLULITIS OF FACE[ICD9: 682.0] Diagnosis: Esophageal reflux[ICD9: 530.81] Rosa Martinez MD, [facility] CPT- 4: 42074 08/22/2013 50324 EST. PATIENT, LEVEL II Diagnosis: CELLULITIS OF FACE[ICD9: 682.0] Nay Martinez MD, [facility] CPT-4: 66842 08/08/2013 ([id number]) 69469 EST. P ATIENT, LEVEL III Diagnosis: Cellulitis of lutheran[ICD9: 682.0] [facility] CPT-4: 07439 07/29/2013 ([id number]) 75218 EST. P ATIENT, LEVEL IV Diagnosis: ESSENTIAL HYPERTENSION[SNOMED: 57473066] Diagnosis: ALZHEIMER'S DISEASE[ICD9: 331.0] Diagnosis: INTEGUMENT TISS SYMP NEC[ICD9: 782.9] Diagnosis: JOINT PAIN-L/LEG[ICD9: 719.46] Nay Martinez MD, [facility] CPT-4: 55241 06/25/2013 ([id number]) 00608 EST. P ATIENT, LEVEL IV Diagnosis: ESSENTIAL HYPERTENSION[SNOMED: 44760594] Diagnosis: ACTINIC KERATOSIS[ICD9: 702.0] Diagnosis: Skin cancer[ICD9: 173.90] Diagnosis: COUGH[ICD9: 786.2] Diagnosis: ACUTE BRONCHITIS[ICD9: 466.0] Nay Martinez MD, [facility] CPT-4: 29490 03/26/2013 80403 EST. PATIENT, LEVEL IV Diagnosis: ESSENTIAL HYPERTENSION[SNOMED: 36541001] Diagnosis: ALZHEIMER'S DISEASE[ICD9: 331.0] Diagnosis: JOINT PAIN-L/LEG[ICD9: 719.46] Diagnosis: MUSCSKEL SYMPT LIMB NEC[ICD9: 729.89] [facility] CPT-4: 84199 11/20/2012 ([id number]) 06854 EST. P ATIENT, LEVEL IV Diagnosis: ESSENTIAL HYPERTENSION[SNOMED: 88217300] Diagnosis: ALZHEIMER'S DISEASE[ICD9: 331.0] Diagnosis: ENCNTR LONG-ANTICOAG USE[ICD9: V58.61] Diagnosis: Skin change[ICD9: 782.9] [facility] CPT-4: 33972 08/21/2012 ([id number]) 71347 EST. P ATIENT, LEVEL III Diagnosis: SUBDURAL HEMORRHAGE[ICD9: 432.1] Nay Martinez MD, [facility] CPT-4: 33224 06/28/2012 ([id number]) 24299 EST. P ATIENT, LEVEL IV Diagnosis: ESSENTIAL HYPERTENSION[SNOMED: 60950869] Diagnosis: Subdural hematoma[ICD9: 432.1] Diagnosis: Encounter for long-term (current) use of anticoagulants[ICD9: V58.61] Nay Martinez MD, [facility] CPT-4: 26835 05/21/2012 ([id number]) Patient adm itted to the hospital from clinic (NO CHARGE) Diagnosis: Lower extremity weakness[ICD9: 729.89] Diagnosis: FALL AGAINST OBJECT[ICD9: E888.1] Diagnosis: Gait instability[ICD9: 781.2] Nay Martinez MD, [facility] CPT-4: 66110A 04/26/2012 ([id number]) 22570 EST. P ATIENT, LEVEL IV Diagnosis: ESSENTIAL HYPERTENSION[SNOMED: 50060740] Diagnosis: ALZHEIMER'S DISEASE[ICD9: 331.0] Diagnosis: HYPERLIPIDEMIA[ICD9: 272.4] Nay Martinez MD, [facility] CPT-4: 52515 02/14/2012 ([id number]) 06228 EST. P ATIENT, LEVEL IV Diagnosis: ALZHEIMER'S DISEASE[ICD9: 331.0] Diagnosis: Abnormal loss of weight[ICD9: 783.21] Diagnosis: Knee pain, bilateral[ICD9: 719.46] Diagnosis: ESSENTIAL HYPERTENSION[SNOMED: 56677802] Nay Martinez MD, [facility] CPT-4: 33730 10/11/2011 ([id number]) 08463 EST. P ATIENT, LEVEL IV Diagnosis: ESSENTIAL HYPERTENSION[SNOMED: 94828686] Diagnosis: JOINT PAIN-L/LEG[ICD9: 719.46] Diagnosis: Thrush[ICD9: 112.0] Diagnosis: Abdominal pain[ICD9: 789.00] Nay Martinez MD, [facility] CPT-4: 46880 07/12/2011 ([id number]) 08880 EST. P ATIENT, LEVEL III Diagnosis: Knee pain[ICD9: 719.46] Diagnosis: OSTEOARTHROSIS-[facility][ICD9: 715.80] Nay Martinez MD, [facility] CPT-4: 20654 05/11/2011 ([id number]) 03307 EST. P ATIENT, LEVEL IV Diagnosis: Alzheimer's dementia[ICD9: 331.0] Diagnosis: ESSENTIAL HYPERTENSION[SNOMED: 97622878] Nay Martinez MD, [facility] CPT-4: 64368 04/12/2011 25046 EST. PATIENT, LEVEL IV Diagnosis: ESSENTIAL HYPERTENSION[SNOMED: 53041831] Diagnosis: HYPERLIPIDEMIA[ICD9: 272.4] Diagnosis: VACCIN FOR INFLUENZA[ICD9: V04.81] Diagnosis: Dementia[ICD9: 294.8] Nay Martinez MD, [facility] CPT-4: 20028 01/11/2011 Plan of Care Planned Activity Notes C odes Status Date Appointment: Rosa Aguilar WPtel: [address] [place] [address] - Annual Wellness Visit 08/21/2018 Visit Plan: Blood in ears - removed the dried blood shard that is residual in left ear - no other treatment changes needed. 07/25/2018 Appointment: Nay Martinez WPtel: [address] [place], [place] [id number] (15 min) Moderate 07/25/2018 Patient Education: Patient [...] 2 wks 07/05/2018 Appointment: Nay Martinez WPtel: [facility] (15 min) Moderate 07/05/2018 Patient Education: Patient Medication Summary Completed 07/05/2018 Visit Plan: Nasal congestion - rx f or flonase to the [facility] - rx was called to [facility]. Blood in ears - due to pt using qtips aggressively - recommended pt to use mineral oil in ears nightly x 10 days - return to clinic in 10 days for my evaluation to see if there are any residual lesions in his ears once the dried blood is out of the ear canals. 06/26/2018 Appointment: [phone] [place] (15 min) Moderate 06/26/2018 Patient Education: [...] at home. 03/27/2018 Appointment: [facility]el[phone] [facility] [place] (15 min) Moderate 03/27/2018 Patient Education: Patient Medication Summary Completed 03/27/2018 Appointment: [facility]el[facility] [phone] [facility] [place] (15 min) Moderate 03/07/2018 Appointment: Nay Martinez WPtel: [facility] [place] (15 min) Moderate 02/21/2018 Visit Plan: [...] Monday morning. 02/14/2018 Appointment: [facility]ay Martinez [facility]Ptel[facility] [phone] [facility] [place] (15 min) Moderate 02/14/2018 Patient Education: Patient Medication Summary Completed 02/14/2018 Visit Plan: Hypertension - well con corey [...] current medications. 11/08/2017 Appointment: [facility]ay Martinez [facility]Ptel[facility] [phone] [facility] (15 min) Moderate 11/08/2017 Patient Education: Patient [...] care surrogate. 08/11/2017 Appointment: [facility] [phone] [phone] [facility] - Annual Wellness Visit 08/11/2017 Patient Education: [...] fat intake. 08/09/2017 Appointment: Nay Martinez WPtel[facility] [phone] [facility] (15 min) Moderate 08/09/2017 Patient Education: Patient [...] to medications. 04/11/2017 Appointment: [facility]ay Martinez WPtel[facility] [phone] [facility] [place] (15 min) Moderate 04/11/2017 Patient Education: Patient [...] memory loss. 01/25/2017 Appointment: [facility]ay Martinez [facility]Ptel[facility] [phone] [facility] (15 min) Moderate 01/25/2017 Patient Education: Patient Medication Summary Completed 01/25/2017 Appointment: Nay Martinez WPtel: [phone] [facility] [place] (15 min) Moderate 01/24/2017 Visit Plan: Dried bloody debris in left ear - removed with alligator forceps, ear currette - pt to use mineral oil in the ear. 12/21/2016 Appointment: Nay Martinez WPtel: [phone] [facility] [place] (15 min) Moderate 12/21/2016 Patient Education: [...] fat intake. 12/01/2016 Appointment: Nay Martinez WPtel: [facility] (15 min) Moderate 12/01/2016 Patient Education: Patient [...] medications. 10/25/2016 Appointment: [facility]Ptel[facility] [phone] [facility] [place] (15 min) Moderate 10/25/2016 Patient Education: Patient [...] the home. 08/05/2016 Appointment: Rosa Aguilar WPtel: [phone] [phone] [facility] - Annual Wellness Visit 08/05/2016 Patient Education: [...] tomorrow. 07/26/2016 Appointment: Nay Martinez WPtel: [phone] [facility] [place] (15 min) Moderate 07/26/2016 Patient Education: [...] of treatment. 04/26/2016 Appointment: Rosa Aguilar WPtel: [phone] [place] [phone] [place] (15 min) Moderate 04/26/2016 Patient Education: [...] of treatment. 01/27/2016 Appointment: Nay Martinez WPtel: [phone] [facility] (15 min) Moderate 01/27/2016 Patient Education: Patient [...] treatment. 10/27/2015 Appointment: Nay Martinez WPtel: [phone] [facility] [place] (15 min) Moderate 10/27/2015 Patient Education: [...] of treatment. 06/30/2015 Appointment: Nay Martinez WPtel: [phone] [facility] [place] (15 min) Moderate 06/30/2015 Appointment: Nay Martinez WPtel: [address] [facility] (15 min) Moderate 06/30/2015 Patient Education: Patient [...] of treatment. 03/31/2015 Appointment: [facility]Ptel[phone] [facility] [place] (15 min) Moderate 03/31/2015 Patient Education: [...] surgically removed. 01/20/2015 Appointment: Nay Martinez WPtel: [facility] (15 min) Moderate 01/20/2015 Patient Education: Patient Medication Summary Completed 01/20/2015 Patient Education: Hypertension Completed 01/20/2015 Care Plan: Referral Order SNOMED-CT : [id number] Ordered 01/20/2015 Appointment: Nay Martinez WPtel: [facility] (15 min) Moderate 12/18/2014 Visit Plan: Hypertension [...] and 3.5. 12/15/2014 Appointment: Nay Martinez WPtel: [facility] [place] (15 min) Moderate 12/15/2014 Patient Education: Patient [...] to have his knee operated on at [facility], I have placed a phone call to Dr. Ballesteros - waiting on a call back 09/30/2014 Appointment: Nay Martinez WPtel[facility] [phone] [facility] Follow up 09/30/2014 Patient Education: Patient Medication [...] for knee. 07/01/2014 Appointment: [facility]ay Martinez WPtel: [phone] [facility] Follow up 07/01/2014 Patient Education: Patient Medication Summary Completed 07/01/2014 Patient Education: Hypertension Completed 07/01/2014 Care Plan: Referral Order SNOMED-CT : [id number] Ordered 07/01/2014 Visit Plan: Hypertension - well [...] treatment. 04/01/2014 Appointment: Nay Martinez WPtel: [phone] [facility] Follow up 04/01/2014 Patient Education: Patient Medication Summary Completed 04/01/2014 Visit Plan: Hypertension - well con troemed - continue with current medications, continue with [...] treatment. 01/13/2014 Appointment: Nay Martinez WPtel: [phone] [facility] Follow up 01/13/2014 Patient Education: Patient Medication Summary Completed 01/13/2014 Patient Education: Hypertension Completed 01/13/2014 Care Plan: COMPLETE CBC AUTOMATED LOINC : 83545-5 Ordered 01/13/2014 Visit Plan: Knee pain has improved - pt needs to continue with use of the voltaren gel, no change in treatment at this time, he is not interested in seeing an orthopedic surgeon until his knee pain is not controlled with the voltaren gel. Dementia - symptoms stable, but the [employer] is stopping production of the [...] in medications. 10/15/2013 Appointment: Nay Martinez WPtel: [address] [place], [place] [phone] Follow up 10/15/2013 Patient Education: Patient Medication Summary Completed 10/15/2013 Patient Education: Hypertension Completed 10/15/2013 Appointment: Nay Martinez WPtel: [address] [place], [place] [phone] Follow up 10/02/2013 Visit Plan: Lower leg pain - rx for voltaren gel to be used on right knee four times daily to alleviate pain in knee. Pt to use walker - RX for rolator walker. 09/11/2013 Appointment: Nay Martinez WPtel: [address] [place], [place] [phone] Other 09/11/2013 Patient Education: Patient Medication Summary [...] current treatement. 08/22/2013 Appointment: Rosa Aguilar WPtel: [address] [place], [place] [phone] Follow up 08/22/2013 Patient Education: Patient Medication Summary Completed 08/22/2013 Visit Plan: Mbtcagakxqt-fsqhwdag-ux ntinue treatment-return in 2 weeks for follow up 08/08/2013 Appointment: Rosa Aguilar WPtel: [address] [place], [place] [phone] Follow up 08/08/2013 Patient Education: Patient Medication [...] current plan of treatment. Skin lesion on lutheran - pt to use flurouracil on lesions on lutheran. OA of knees - pt to try voltaren gel. 06/25/2013 Appointment: Nay Martinez WPtel: [phone] [facility] Follow up 06/25/2013 Patient Education: Patient Medication [...] acute conerns. 03/26/2013 Appointment: Nay Martinez WPtel: [phone] [facility] Follow up 03/26/2013 Patient Education: Patient Medication Summary Completed 03/26/2013 Patient Education: Hypertension Completed 03/26/2013 Appointment: Rosa Aguilar WPtel: [phone] [place] Nurse Visit 01/14/2013 Patient Education: Patient Medication Summary Completed 01/14/2013 Visit Plan: Wound Instructions - Pt was instruced to keep the wound clean, wash with antibacterial soap, use triple antibiotic ointment, call if redness, pustular drainage, or any other acute conerns. 12/25/2012 Appointment: Rosa Aguilar WPtel: [phone] Surgical Procedure 12/25/2012 Patient Education: Patient Medication [...] be weak. 11/20/2012 Appointment: Nay Martinez WPtel: [facility] Follow up 11/20/2012 Patient Education: Patient Medication [...] every days. 08/21/2012 Appointment: Nay Martinez WPtel: [address] [place], [place] [phone] Follow up 08/21/2012 Patient Education: Hypertension Completed 08/21/2012 Patient Education: Patient Medication Summary Completed 08/21/2012 Visit Plan: Subdural hematoma-recen t fall-decreased in size with tiny acute component-plan to repeat CT in 2 weeks Low back mmud-wgojxmwwbvy-UE joint Injection today in the office - Pt was given post - injection instructions. The pt has been advised to use antiinflammatories post injection today, ice to the injected site, call if redness, warmth, or increased pain occurs at the site of injection. 06/28/2012 Appointment: Rosa Aguilar WPtel: [facility] [place] [address] 06/28/2012 Patient Education: Patient Medication Summary Completed [...] this week. 05/21/2012 Appointment: Nay Martinez WPtel: [address] [place], [place] [phone] [facility] follow up 05/21/2012 Patient Education: Patient Medication Summary Completed 05/21/2012 Patient Education: Hypertension Completed 05/21/2012 Appointment: Nay Martinez WPtel: [address] [place], [place] [phone] Follow up 05/15/2012 Visit Plan: Fall-sudden onset of ri ght lower extremity weakness-Dr Martinez in to evaluate patient-plan to admit for observation and further work up which includes a STAT CT of the head and labs. Patient and verbalize understanding. 04/26/2012 App[facility]ment: [id number] [facility], fall 1 month ago Other 04/26/2012 Patient Education: Patient Medication Summary Completed 04/26/2012 Visit Plan: Hypertension - well suzy nicole [...] of treatment. 02/14/2012 Appointment: Nay Martinez WPtel: [phone] [id number] Established Patient Preventative visit 02/14/2012 Patient Education: [...] Weight loss - discussed the need for [place] to not loose more weight. He reports that he has actually gained weight in the past few weeks since moving to [facility]. Knee pain - has improved with flector patches, no change in current treatment. HTN - controlled - no change in medications. I have encouraged Omid to check his blood pressures oc casionally at home and bring in his list at his next office visit. 10/11/2011 Appointment: Nay Martinez WPtel: [phone] [facility] Other 10/11/2011 Patient Education: Patient Medication Summary Completed 10/11/2011 Patient Education: High Blood Pressure: Essential Hypertension Completed 10/11/2011 Visit Plan: Hypertension - well con troemed - continue with current medications, continue with [...] OF BLOOD. 07/12/2011 Appointment: Nay Martinez WPtel: [facility] Other 07/12/2011 Patient Education: Patient Medication Summary Completed 07/12/2011 Patient Education: High Blood Pressure: Essential Hypertension Completed 07/12/2011 Visit Plan: Knee pain- uncontrolled - but improving, recommend watchful waiting and to use FLECTOR PATCH, 1/4 of a patch and change twice daily.. Call if the pain worsens. 05/11/2011 Appointment: Nay Martinez WPtel: [facility] Other 05/11/2011 Patient Education: Patient Medication Summary [...] in medications. 04/12/2011 Appointment: Nay Martinez WPtel: [address] [place], [place] [id number] Other 04/12/2011 Patient Education: Patient Medication Summary [...] this time. 01/11/2011 Appointment: Nay Martinez WPtel: [address] [place], [place] [phone] Other 01/11/2011 Patient Education: Patient Medication Summary Completed 01/11/2011 Referral: Cris Egan Referral Relationship Referral: Dayron Ballesteros Referral Appointment Requested Referral: Kings Valles [facility] [phone] [facility] Referral Relationship Referral: Carl Yu Referral Relationship [...] changes. Continue with current plan of treatment. PREVAR 23 . Hypertension - well controlled [...] changes. Continue with current plan of treatment. Knee pain has improv ed - pt needs to continue with use of the voltaren gel, no change in treatment at this time, he is not interested in seeing an orthopedic surgeon until his knee pain is not controlled with the voltaren gel. Dementia - symptoms stable, but the [employer] is stopping production of the [...] gel. Dementia - symptoms stable, but the [employer] is stopping production of the [...] HTN - stable no change in medications. joint juice, glucosa mine - at [facility] ask about welnesse liquid Glucosamine and [...] Anne will need this lesion surgically removed. joint juice, glucosa mine - at [facility] ask about welnesse liquid Glucosamine and chondroitin. increase the omeprazole to one pill twice daily. Monday at 10AM - Dr. uY - [place] across [address] from Dr. [...] Anne will need this lesion surgically removed. Try tiger balm to lo w back. [...] Will send paperwork for back brace. . Hypertension - wel l controlled - [...] assure normal liver response to medications. . Hypertension - wel l controlled [...] - monitor symptoms - continue current medications. Renal ultrasound on 07/27/16 at 12noon. Hypertension [...] to have his knee operated on at [facility], I have placed a phone call to Dr. Ballesteros - waiting on a call back . Blood in ears - re moved the dried blood shard that is residual in left ear - no other treatment changes needed. . Celllulitis-[facility] ed-continue treatment-return in 2 weeks for follow up . Subdural hematoma- recent fall-decreased in size with tiny acute component-plan to repeat CT in 2 weeks Low back [id number]-[place] joint Injection today in the office - [...] congestion - [facility] - rx was called to [facility]. Blood in ears - due to pt [...] Weight loss - discussed the need for [place] to not loose more weight. He reports that he has actually gained weight in the past few weeks since moving to [facility]. Knee pain - has improved with flector patches, no change in current treatment. HTN - controlled - no change in medications. I have encouraged Omid to check his blood pressures occasionally at home and bring in his list at his next office visit. . Lower leg pain - r x for voltaren gel to be used on right knee four times daily to alleviate pain in knee. Pt to use walker - RX for rolator walker. use mineral oil in t he left [...] daily.. Call if the pain worsens. . Dried bloody debri s in left ear - removed with alligator forceps, ear currette - pt to use mineral oil in the ear. HOLD OMEPRAOZLE WHIL E ON THE NEXIUM [...] not improving. Cellulitis-almost completely healed-continue current treatement. . Memory loss- sympt oms slightly worsening [...] current plan of treatment. Skin lesion on lutheran - pt to use flurouracil on lesions on lutheran. OA of knees - pt to try voltaren gel. . Hypertension - wel l controlled - [...] current plan of treatment. . Hypertension - we ll controlled - [...] redness, warmth, discharge. Stop the 5-FU . Hypertension - wel l controlled - [...] drainage, or any other acute conerns. . Wound Instructions - Pt was instruced to keep the wound clean, wash with antibacterial soap, use triple antibiotic ointment, call if redness, pustular drainage, or any other acute conerns. . Hypertension - we ll controlled - [...]
--- OUTSIDE RECORDS SUMMARY | 2019-07-11 12:41 | XMS REPORT | CCD ---
Author Author Omid Martinez Organization Nay Martinez MD, [facility] Address [address] [place] [address] Phone Care Team Providers Care Artist Manager Name Role Phone Nay Martinez PP Unavailable CCM Unavailable Summary Purpose Interface Exchange Insurance Providers Payer name Policy type / Coverage type Covered constitution party ID Effective Begin Date Effective End Date WPS Medicare Part B Medicare Part B [id number] Unknown [facility] icare Part B [id number] 2013 Un known Family history Mother Diagnosis Age At Onset No Family Disease Entered N/A Father Diagnosis Age At Onset No Family Disease Entered N/A Brother Diagnosis Age At Onset No Family Disease Entered N/A Social History Social History Element Codes Description Effective Dates Living arrangements Unknown Assisted Living Moved in August 2011 to assisted living facility [facility]. 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 Unknown Has never used illegal drugs 011 Marital status Unknown M arried 01/28/2011 Number of adults in household Unknown 2 01/28/2011 Allergies, Adverse Reactions, Alerts Allergies, Adverse Reactions, Alerts data not found Past Medical History Illness Codes Condition Status Onset Date Resolved Date Essential (primary) hypertension ICD-9: 401.9 ICD-10: I10 Active 04/25/2016 Unknown Mixed hyperlipidemia ICD-9: 272.2 ICD-10: E78.2 Active 10/25/2016 Unknown BLOOD IN STOOL ICD-9: 578.1 ICD-10: K92.1 Active 08/15/2016 Unknown Encounter for genera l adult medical examination with abnormal findings ICD-9: V70.0 ICD-10: Z00.01 Active 08/05/2016 Unknown Alzheimer's disease with early onset ICD-9: 331.0 ICD-10: G30.0 Active 04/25/2016 Unknown Cyst of kidney, acqu ired ICD-9: 753.10 ICD-10: N28.1 Active 07/26/2016 Unknown Pain in left knee ICD-9: 719.46 ICD-10: M25.562 Active 07/26/2016 Unknown Encounter for immuni zation ICD-9: V03.82 ICD-10: Z23 Active 04/25/2016 Unknown VACCIN FOR INFLUENZA ICD-9: V04.81 ICD-10: Z23 Active 01/27/2016 Unknown Low back pain ICD-9: 724.2 ICD-10: [...] ICD-9: 530.81 Active 08/22/2013 Unknown Cellulitis of rastafarian ICD-9: 682.0 Active 07/29/2013 Unknown ACUTE BRONCHITIS [...] Condition Codes Effectiv e Dates Condition Status Essential (primary) hypertension ICD-9: 401.9 ICD-10: I10 04/25/2016 Active Mixed hyperlipidemia ICD-9: 272.2 ICD-10: E78.2 10/25/2016 Active BLOOD IN STOOL ICD-9: 578.1 ICD-10: K92.1 08/15/2016 Active Encounter for genera l adult medical examination with abnormal findings ICD-9: V70.0 ICD-10: Z00.01 08/05/2016 Active Alzheimer's disease with early onset ICD-9: 331.0 ICD-10: G30.0 04/25/2016 Active Cyst of kidney, acqu ired ICD-9: 753.10 ICD-10: N28.1 07/26/2016 Active Pain in left knee ICD-9: 719.46 ICD-10: M25.562 07/26/2016 Active Encounter for immuni zation ICD-9: V03.82 ICD-10: Z23 04/25/2016 Active VACCIN FOR INFLUENZA ICD-9: V04.81 ICD-10: Z23 01/27/2016 Active Low back pain ICD-9: 724.2 ICD-10: [...] reflux ICD-9: 530.81 08/22/2013 Active Cellulitis of rastafarian ICD-9: 682.0 07/29/2013 Active ACUTE BRONCHITIS ICD-9: [...] MOUTH ON E TIME DAILY 07/06/2016 06/30/2017 Active fluorouracil 5 % top ical cream RxNorm: 971702 1 Application TOP luz ly use daily x 1 week, then stop use, let tissue heal x1wk, if still dry patchy, then restart the medication x 1 week 01/29/2016 02/07/2016 Inactive omeprazole 20 mg cap mino,delayed release RxNorm: 440398 1 Capsule(s) PO BID 01/20/2015 06/18/2015 In active Bactroban 2 % topica l cream RxNorm: 051181 1 Application TOP BID as needed 12/18/2014 03/30/2015 In active Cerefolin NAC 600 mg -2 mg-6 mg tablet RxNorm: 1 Tablet(s) PO daily 07/01/2014 06/25/2015 Inactive [SAVINGS FOR NON-COVERED DRUGS -- BIN:[id number], PCN: [id number], Group: XXXXX, ID# [id number], Questions: . THIS IS NOT INSURANCE.] Kenalog 40 mg/mL tess pension for injection RxNorm: 1842763 Milliliter(s) Inj 04/01/2014 04/01/2014 In active Namenda XR 28 mg cap mino sprinkle,ER 24hr RxNorm: 906077 1 Capsule(s) PO daily 10/15/2013 No Stop Date Active Namenda XR 7 mg-14 m g-21 mg-28 mg capsule,sprinkle,ER 24hr,dose pack RxNorm: 891445 1 Capsule(s) PO daily 10/15/2013 11/13/2013 Inactive Bactrim DS 800 mg-16 0 mg tablet RxNorm: 923753 1/2 Tablet(s) PO dale y 10/15/2013 03/30/2015 In active Voltaren 1 % topical gel RxNorm: 082629 4 Gram(s) TOP QID 09/11/2013 01/08/2014 Inactive dispense 5 tubes Bactroban 2 % topica l cream RxNorm: 675611 1 Application TOP BID 07/29/2013 08/04/2013 Inactive ciprofloxacin 500 mg tablet RxNorm: 791754 1 Tablet(s) PO BID 07/29/2013 08/04/2013 Inactive fluorouracil 5 % top ical cream RxNorm: 371114 1 Application TOP luz ly use daily x 1 week, then stop use, let tissue heal x1wk, if still dry patchy, then restart the medication x 1 week 06/25/2013 07/04/2013 Inactive levofloxacin 500 mg tablet RxNorm: 753775 1 Tablet(s) PO daily 03/26/2013 03/30/2013 Inactive Cerefolin NAC 600 mg -2 mg-6 mg tablet RxNorm: 1 Tablet(s) PO daily 11/05/2012 10/30/2013 Inactive Kenalog 40 mg/mL Tess p for Injection RxNorm: 2169748 1 Milliliter(s) Inj 06/29/2012 06/29/2012 In active Exelon 9.5 mg/24 ricki r Transderm 24 hr Patch RxNorm: 412453 Patch 24 hr TD APPLY 1 PATCH DAILY DIRECTED 04/25/2012 08/20/2012 Inactive omeprazole 20 mg cap mino,delayed release RxNorm: 339077 1 Capsule(s) PO daily 04/09/2012 04/03/2013 In active omeprazole 20 mg cap mino,delayed release RxNorm: 820927 Capsule(s) PO TAKE 1 CAPSULE BY MOUTH EVERY DAY 04/09/2012 01/19/2015 Inactive warfarin 4 mg tablet RxNorm: 278274 1 Tablet(s) PO 11/28/2011 11/21/2012 Inactive TAKE 1 TABLET BY MOUTH DAILY Cerefolin NAC 600 mg -2 mg-6 mg tablet RxNorm: 1 Tablet(s) PO daily 11/28/2011 11/04/2012 Inactive warfarin 4 mg tablet RxNorm: 877326 Tablet(s) PO 08/07/2011 11/27/2011 Inactive TAKE 1 TABLET BY MOUTH DAILY Flector 1.3 % Adhesi ve Patch RxNorm: 957421 1 Application TOP BID 07/12/2011 02/06/2012 Inactive levofloxacin 500 mg Tab RxNorm: 499328 1 Tablet(s) PO daily 07/12/2011 07/16/2011 Inactive nystatin 100,000 uni t/mL Oral Susp RxNorm: 889971 3 Milliliter(s) BUCC TID 07/12/2011 07/21/2011 In active lisinopril 20 mg Tab RxNorm: 967358 1 Tablet(s) PO daily 04/12/2011 04/05/2012 Inactive TAKE ONE TABLET BY MOUTH DAILY;Patient requests 90 day supply omeprazole 20 mg cap mino,delayed release RxNorm: 340816 1 Capsule(s) PO daily 04/12/2011 04/05/2012 In active Namenda 10 mg Tab RxNorm: 551021 1 Tablet(s) PO BID 04/12/2011 04/05/2012 Inactive metoprolol succinate ER 50 mg 24 hr Tab RxNorm: 839718 1 Tablet(s) PO daily 04/12/2011 04/05/2012 In active ropinirole 1 mg Tab RxNorm: 839852 1 Tablet(s) PO daily 04/12/2011 04/05/2012 Inactive TAKE 1 TABLET BY MOUTH EVERY NIGHT AT [facility];Patient requests 90 day supply Bactrim DS 800 mg-16 0 mg Tab RxNorm: 145577 1/2 Tablet(s) PO daily 04/12/2011 04/05/2012 Inactive Exelon 9.5 mg/24 ricki r Transderm 24 hr Patch RxNorm: 856479 1 Patch TD daily 04/12/2011 04/05/2012 In active melatonin 3 mg Tab RxNorm: 189068 1 Tablet(s) PO QHS 04/11/2011 No Stop Date Active Fish Oil 900 mg-1,40 0 mg Cap, Delayed Release RxNorm: 1 Capsule(s) PO BID 04/11/2011 10/27/2015 In active Tylenol Arthritis 65 0 mg Tab RxNorm: 5006286 2 Tablet(s) PO QAM 04/11/2011 10/27/2015 Inactive Bactrim DS 800 mg-16 0 mg Tab RxNorm: 724923 1/2 Tablet(s) PO daily 04/11/2011 04/11/2011 Inactive lisinopril 20 mg Tab RxNorm: 209380 Tablet(s) PO 04/07/2011 04/11/2011 Inactive TAKE ONE TABLET BY MOUTH DAILY;Patient requests 90 day supply ropinirole 1 mg Tab RxNorm: 460972 Tablet(s) PO 04/07/2011 04/11/2011 Inactive TAKE 1 TABLET BY MOUTH EVERY NIGHT AT BEDTIME;Patient requests 90 day supply lisinopril 20 mg Tab RxNorm: 101558 1 Tablet(s) PO daily 04/06/2011 04/06/2011 Inactive ropinirole 1 mg Tab RxNorm: 876691 1 Tablet(s) PO daily 04/06/2011 04/06/2011 Inactive Influenza Virus Vacc ine 0.5 mL RxNorm: IM 01/11/2011 01/11/2011 Inactive Osteo Bi-Flex Triple Strength RxNorm: 2 PO daily No S tart Date Active Lipitor 40 mg tablet RxNorm: 101436 1 Tablet(s) PO daily ordered by dr broussard No Start Date Active isosorbide mononitra te ER 30 mg tablet,extended release 24 hr RxNorm: 624107 1 Tablet(s) PO daily No Start Date Active Vitamin B-12 5,000 m cg/mL sublingual drops RxNorm: 2901956 1 Milliliter(s) SL d aily No Start Date Active Tylenol Extra Streng th 500 mg tablet RxNorm: 735807 2 Tablet(s) PO BID No Start Date Active aspirin 81 mg Tab, D elayed Release RxNorm: 958488 1 Tablet(s) PO daily No Start Date Active warfarin 4 mg tablet RxNorm: 793865 1 Tablet(s) PO daily No Start Date Active Centrum Silver Oral RxNorm: Oral No Start Date Active lisinopril 20 mg tablet RxNorm: 306524 1 Tablet(s) PO daily No Start Date Active ropinirole 1 mg tablet RxNorm: 590304 1 Tablet(s) PO daily No Start Date Active Fish Oil 300 mg-1,00 0 mg capsule RxNorm: 906377 1 Capsule(s) PO daily No Start Date Active Calcium 500 + D (D3) Oral RxNorm: Oral No Start D ate Active Exelon 13.3 mg/24 ho ur Transderm 24 hr Patch RxNorm: 5879295 TD No Start Date Active metoprolol succinate ER 50 mg tablet,extended release 24 hr RxNorm: 060220 1 Tablet(s) PO daily No Start Date Active Cerefolin NAC 600 mg -2 mg-6 mg tablet RxNorm: 1 Tablet(s) PO daily No Start Date 11/27/2011 Inactive lisinopril 20 mg Tab RxNorm: 289988 1 Tablet(s) PO daily No Start Date 04/05/2011 Inactive hydrocodone-acetamin ophen 5 mg-325 mg tablet RxNorm: 0270137 1 Tablet(s) PO BID No Start Date 01/19/2015 Inactive omeprazole 20 mg Cap , Delayed Release RxNorm: 325173 1 Capsule(s) PO daily No Start Date 04/11/2011 Inactive metoprolol succinate ER 50 mg 24 hr Tab RxNorm: 517189 1 Tablet(s) PO daily No Start Date 04/11/2011 Inactive Exelon 9.5 mg/24 ricki r Transderm 24 hr Patch RxNorm: 625051 1 Patch TD daily No Start Date 04/11/2011 Inactive warfarin 4 mg Tab RxNorm: 627053 1 Tablet(s) PO daily No Start Date 08/06/2011 Inactive multivitamin Oral RxNorm: Oral No Start Date 07/26/2016 Inactive melatonin 3 mg Tab RxNorm: 536256 Oral No Start Date 04/10/2011 Inactive iron 134 mg (27 mg i iron) Tab RxNorm: 933903 1 Tablet(s) PO daily No Start Date 10/26/2015 Inactive Fish Oil 900 mg-1,40 0 mg Cap, Delayed Release RxNorm: 1 Capsule(s) PO daily No Start Date 04/10/2011 Inactive Bactrim DS 800 mg-16 0 mg Tab RxNorm: 718189 Oral No S tart Date 04/10/2011 Inactive metoprolol tartrate 50 mg Tab RxNorm: 626422 1 Tablet(s) PO daily No Start Date 04/10/2011 Inactive Tylenol Arthritis 65 0 mg Tab RxNorm: 4024017 Oral No Start Date 04/10/2011 Inactive Namenda 10 mg Tab RxNorm: 843662 1 Tablet(s) PO BID No Start Date 04/11/2011 Inactive ropinirole 1 mg Tab RxNorm: 920995 1 Tablet(s) PO daily No Start Date 04/05/2011 Inactive Medication Administered Medication Codes Instruc tions Start Date Status Kenalog 40 mg/mL suspension for injection RxNorm: 3235635 Milliliter 04/01/2014 No longer Active Kenalog 40 mg/mL Susp for Injection RxNorm: 6961963 1Milliliter 06/29/2012 N o longer Active Influenza Virus Vaccine 0.5 mL RxNorm: 01/11/2011 No longer Active Immunizations Vaccine Codes Date Status Pneumococcal (Adult) CVX: 33 04/26/2016 completed Influenza CVX: 141 01/26 completed Pneumococcal CVX: 133 completed Influenza CVX: 141 01/20 completed Influenza CVX: 141 01/13 completed Influenza CVX: 141 01/14 completed Influenza CVX: 141 02/13 completed Influenza CVX: 141 01/11 completed Pneumococcal CVX: 33 05/2010 completed Assessments Condition Codes Effectiv e Dates Mixed hyperlipidemia ICD-10: E78.2 ICD-9: 272.2 10/25/2016 Essential (primary) hypertension ICD -10: I10 ICD-9: 401.9 10/25/2016 BLOOD IN STOOL ICD-10: K92.1 ICD-9: 578.1 08/15/2016 Encounter for general adult medical exam ination with abnormal findings ICD-10: Z00.01 ICD-9: V70.0 08/05/2016 Pain in left knee ICD-10: M25.562 ICD-9: 719.46 07/26/2016 Alzheimer's disease with early onset ICD-10: G30.0 ICD-9: 331.0 07/26/2016 Cyst of kidney, acquired ICD-10: N28 .1 ICD-9: 753.10 07/26/2016 Encounter for immunization ICD-10: Z 23 ICD-9: V03.82 04/26/2016 VACCIN FOR INFLUENZA ICD-10: Z23 ICD-9: V04.81 01/27/2016 Low back pain ICD-10: M54.5 ICD-9: 724.2 [...] Visit Reason For Visit Effective Dates Notes hypertension 10/25/2016 Annual Medicare Wellness Exam 08/05/2016 [...] Observation Code Item Item Code Result Date Comp Metabolic Ytu488 NA 141 mEq/L 01/28/2016 Comp Metabolic Xex248 K 4.5 mEq/L 01/28/2016 Comp Metabolic Mtt604 CL 111 mEq/L 01/28/2016 Comp Metabolic Eop384 CO2 27.0 mEq/L 01/28/2016 Comp Metabolic Toz907 AN ION GAP 8 01/28/2016 Comp Metabolic Mye990 GL UCOSE 88 mg/dL 01/28/2016 Comp Metabolic Tds601 Cr eat 1.1 mg/dL 01/28/2016 Comp Metabolic Vxr331 eG FR 69 ml/min/1.73m2 01/27 Comp Metabolic Ckv267 BUN 23 mg/dL 01/28/2016 Comp Metabolic Vly905 B/ C Ratio 21.3 Ratio 01/28/2016 Comp Metabolic Xim726 CA LCIUM 9.0 mg/dL 01/28/2016 Comp Metabolic Jpj582 AL K PHOS 48 U/L 01/28/2016 Comp Metabolic Nwm394 T(SGOT) 28 U/L 01/28/2016 Comp Metabolic Qhr442 AL T(SGPT) 20 U/L 01/28/2016 Comp Metabolic Llr249 BI LI T 0.8 mg/dL 01/28/2016 Comp Metabolic Nxc305 AL BUMIN 4.0 g/dL 01/28/2016 Comp Metabolic Ijy563 TP RO 6.0 g/dL 01/28/2016 Comp Metabolic Jpy491 GL OB 2.0 g/dL 01/28/2016 Comp Metabolic Slr085 A/ G Ratio 2.0 Ratio 01/28/2016 Comp Metabolic Rhj818 Os mo 284 mOsmo 01/28/2016 Lipid Ord30 [...] 21.0 % 01/28/2016 Cbc With Differential Ord2 [place]% 10.0 % 01/28/2016 Cbc With Differential Ord2 MCH 34.5 pg 01/28/2016 Cbc With Differential Ord2 MCHC 33.5 pg 01/28/2016 Cbc With Differential Ord2 Eos% 1.1 % 01/28/2016 Cbc With Differential Ord2 Baso% 0.4 % 01/28/2016 Cbc With Differential Ord2 PLT 187 K/ul 01/28/2016 Cbc With Differential Ord2 Neut ABS# 3.77 K/ul 01/28/2016 Cbc With Differential Ord2 RDW 13.5 % 01/28/2016 Cbc With Differential Ord2 Lymph ABS# 1.17 K/ul 01/28/2016 Cbc With Differential Ord2 [place] ABS# 0.6 K/ul 01/28/2016 Cbc With Differential Ord2 Eos ABS# 0.1 K/ul 01/28/2016 Cbc With Differential Ord2 Baso ABS# 0.0 K/ul 01/28/2016 Total Psa Ord10 PSA 2.96 ng/mL 01/28/2016 Pt Wut2938 PT 25.8 seconds 08/07/2015 Pt Szw2643 INR 2.5 08/07/2015 Pt Izi3766 Low Intensity - 1.5-2.0 08/07/2015 Pt Cqy5811 Mod intensity - 2.0-3.0 08/07/2015 Pt Zpz4508 Hi intensity - 3.0-4.0 08/07/2015 Lipid Ord30 CHOL 102 mg/dL 08/07/2015 Lipid Ord30 HDL 50.0 mg/dl 08/07/2015 Lipid Ord30 TRIG 73 mg/dL 08/07/2015 Lipid Ord30 LDL 37 mg/dL 08/07/2015 Lipid Ord30 C/HDL 2.0 Ratio 08/07/2015 Hepatic Hqw264 ALBUMIN 4.0 g/dL 08/07/2015 Hepatic Tep755 TPRO 6.0 g/dL 08/07/2015 Hepatic Wsg931 GLOB 2.0 g/dL 08/07/2015 Hepatic Lsv554 A/G Ratio 2.0 Ratio 08/07/2015 Hepatic Mtf961 ALK PHOS 47 U/L 08/07/2015 Hepatic Prg602 ALT(SGPT) 20 U/L 08/07/2015 Hepatic Ier678 AST(SGOT) 26 U/L 08/07/2015 Hepatic Buc091 BILI T 0.6 mg/dL 08/07/2015 Hepatic Tel261 BILI D 0.2 mg/dL 08/07/2015 Hepatic Sqj801 BILI I 0.4 mg/dL 08/07/2015 Pt Nbm6901 PT 24.3 seconds 12/22/2014 Pt Gut9721 INR 2.3 12/22/2014 Pt Una2761 Low Intensity - 1.5-2.0 12/22/2014 Pt Bvp5813 Mod intensity - 2.0-3.0 12/22/2014 Pt Qwt4900 Hi intensity - 3.0-4.0 12/22/2014 URINALYSIS NONAUTO W/O SCOPE 28923 Specific [place] 1.030 DateTime(Free Text in ) URINALYSIS NONAUTO W/O SCOPE 64761 PH 6.5 DateTime(Free Ryan t in ) URINALYSIS NONAUTO W/O SCOPE 61980 GLUCOSE neg DateTime(Free Ryan t in ) URINALYSIS NONAUTO W/O SCOPE 04390 Protein trace DateTime(Free T ext in ) URINALYSIS NONAUTO W/O SCOPE 35141 Blood 3+ DateTime(Free Text in Apr) URINALYSIS NONAUTO W/O SCOPE 46862 Bilirubin neg DateTime(Free Ryan t in ) URINALYSIS NONAUTO W/O SCOPE 77715 Ketones neg DateTime(Free Ryan t in Apr) URINALYSIS NONAUTO W/O SCOPE 70042 Urobilinogen neg DateTime(Free Text in ) URINALYSIS NONAUTO W/O SCOPE 18634 Nitrite neg DateTime(Free Ryan t in Apr) URINALYSIS NONAUTO W/O SCOPE 75477 Leukocytes neg DateTime(Free Text in ) Review of Systems System Result Effective Dates Constitutional No recent illness 10/25/2016 Constitutional No [...] tenderness 07/01/2014 None Full Exam - General 1995 Abdomen [...] inspection of skin Dermatitis: erythema 08/22/2013 right rastafarian, no open are as, scabbed lesion healed [...] palp - head/face Location: on the right rastafarian 08/08/2013 --Improved Full Exam - Dermatology Integument [...] palp - head/face Location: on the right rastafarian 07/29/2013 None Full Exam - Dermatology Integument [...] inspection of skin Dermatitis: erythema 06/25/2013 left rastafarian, with irritat ed center of lesion Full [...] lips 03/26/2013 None Full Exam - General 1995 Ears/Nose/Throat lips/teeth/gingiva Overall: no masses 03/26/2013 None [...] inspection of skin Dermatitis: erythema 03/26/2013 left rastafarian, with irritat ed center of lesion Full [...] sounds 11/20/2012 None Full Exam - General 1995 Musculoskeletal [...] accomodation 08/21/2012 None Full Exam - General 1995 [...] time 06/28/2012 None Full Exam - General 1995 Psychiatric mood and affect Overall: normal mood and affect 06/28/2012 None Full Exam - General 1995 Musculoskeletal spine, ribs and pelvis Sacroiliac joints: [...] masses 10/11/2011 None Full Exam - General 1995 [...] rate 07/12/2011 None Full Exam - General 1995 Musculoskeletal lower extremity Inspection - knee: swelling [...] clear 07/12/2011 None Full Exam - General 1995 Ears/Nose/Throat oral cavity/pharynx/larynx Overall: no masses 07/12/2011 [...] nourished 05/11/2011 None Full Exam - General 1995 Constitutional general appearance Overall: well developed 05/11/2011 None Full Exam - General 1995 [...] Procedures Procedure Codes Date PPPS, SUBSEQ VISIT CPT-4: Q0589Fxjqwpp 08/05/2016 ADMIN PNEUMOCOCCAL V ACCINE SNOMED CT: 17134481 CPT-4: A3569Cvieiby 04/26/2016 Pneumococcal Polysac charide Vaccine, 23-Valent, Ad Formatting Model/CDA Sections, Assigned to/Raquel Shelley CPT-4: 73679Kmuuprw 04/26/2016 ADMIN INFLUENZA VIRU S VAC CPT-4: Y3151Wpzpvys 01/27/2016 FLU VACC 4 JULISA 3 YRS PLUS IM Formatting Model/CDA Sections, Assigned to/Raquel Shelley SNOMED CT: 09973887 CPT-4: 75892Hqukroh 01/27/2016 ADMIN INFLUENZA VIRU S VAC Formatting Model/CDA Sections, Assigned to CPT-4: N8190Lxoipgf 01/20/2015 FLU VACC 4 JULISA [address] PLUS IM SNOMED CT: 59807919 CPT-4: 39107Kvqwruc 01/20/2015 DRAIN/INJECT JOINT/B URSA CPT-4: 37172Ccybotx 04/01/2014 TRIAMCINOLONE ACET I [place] NOS CPT-4: L9718Ujljtfc 04/01/2014 URINALYSIS NONAUTO W /O SCOPE CPT-4: 62963Ffsuibj 04/01/2014 ADMIN INFLUENZA VIRU S VAC Assigned to/Raquel Shelley CPT-4: N7086Ewhoygw 01/13/2014 FLU VAC NO PRSV 4 VA L 3 YRS+ Assigned to/Raquel Shelley CPT-4: 06445Cczarfs 01/13/2014 PRESCRIP TRANSMIT A ERX SY CPT-4: C8740Ymihqxm 03/26/2013 ADMIN INFLUENZA VIRU S VAC CPT-4: P6437Cmwwgtx 01/14/2013 FLULAVAL VACC, 3 YRS & >, IM CPT-4: T9795Ejzdtyj 01/14/2013 DESTRUCT PREMALG LES ION CPT-4: 06709Aafxdhd 12/25/2012 PRESCRIP TRANSMIT A ERX SY CPT-4: V3625Vgoztvk 08/21/2012 DRAIN/INJECT JOINT/B URSA CPT-4: 10355Bvxxjfx 06/28/2012 TRIAMCINOLONE ACET I [place] NOS CPT-4: G1705Dpuivwj 06/28/2012 ADMIN INFLUENZA VIRU S VAC CPT-4: S2101Rnsnhzx 02/14/2012 FLULAVAL VACC, 3 YRS & >, IM CPT-4: O5930Mkzcrcw 02/14/2012 URINALYSIS NONAUTO W /O SCOPE CPT-4: 59727Esxnwsk 07/12/2011 PRESCRIP TRANSMIT A ERX SY CPT-4: I0917Hlvamoc 07/12/2011 ADMIN INFLUENZA VIRU S VAC CPT-4: G0634Yhszron 01/11/2011 FLULAVAL VACC, 3 YRS & >, IM CPT-4: D2015Xfqxpwk 01/11/2011 Vital Signs Date Vital 10/25/2016 Blood Pressure 1: 128/70 Code: 8480-6 BMI: 23.5 Code: 77843-9 Heart Rate 1: 62 bpm Height: 5'7" SpO2: 96% Weight: 150 lbs 08/05/2016 Blood Pressure 1: 110/58 Code: 8480-6 BMI: 23.3 Code: 09104-4 Heart Rate 1: 65 bpm Height: 5'7" SpO2: 95% Waist Measure (cm): 102 cm Weight: 149 lbs 07/26/2016 Blood Pressure 1: 112/64 Code: 8480-6 BMI: 23.3 Code: 82181-0 Heart Rate 1: 62 bpm Height: 5'7" SpO2: 95% Weight: 149 lbs 04/26/2016 Blood Pressure 1: 124/68 Code: 8480-6 BMI: 23.8 Code: 42911-6 Heart Rate 1: 64 bpm Height: 5'7" SpO2: 98% Weight: 152 lbs 01/27/2016 Blood Pressure 1: 118/70 Code: 8480-6 BMI: 24.0 Code: 12396-0 Heart Rate 1: 64 bpm Height: 5'7" SpO2: 97% Weight: 153 lbs 10/27/2015 Blood Pressure 1: 114/60 Code: 8480-6 BMI: 23.7 Code: 62340-3 Heart Rate 1: 61 bpm Height: 5'7" SpO2: 97% Weight: 151 lbs 8 oz 06/30/2015 Blood Pressure 1: 102/60 Code: 8480-6 BMI: 23.9 Code: 86087-9 Heart Rate 1: 70 bpm Height: 5'7" SpO2: 97% Weight: 152 lbs 8 oz 03/31/2015 Blood Pressure 1: 122/64 Code: 8480-6 BMI: 23.2 Code: 10629-0 Heart Rate 1: 64 bpm Height: 5'7" SpO2: 97% Weight: 148 lbs 03/17/2015 Blood Pressure 1: 142/76 Code: 8480-6 BMI: 23.5 Code: 10317-1 Heart Rate 1: 64 bpm Height: 5'7" SpO2: 98% Weight: 150 lbs 01/20/2015 Blood Pressure 1: 128/64 Code: 8480-6 BMI: 22.9 Code: 91707-7 Heart Rate 1: 72 bpm Height: 5'7" SpO2: 96% Weight: 146 lbs 12/15/2014 Blood Pressure 1: 110/60 Code: 8480-6 BMI: 21.9 Code: 27620-5 Heart Rate 1: 88 bpm Height: 5'7" SpO2: 96% Weight: 140 lbs 09/30/2014 Blood Pressure 1: 146/70 Code: 8480-6 BMI: 23.5 Code: 32010-7 Heart Rate 1: 53 bpm Height: 5'7" SpO2: 94% Weight: 150 lbs 07/01/2014 Blood Pressure 1: 140/62 Code: 8480-6 BMI: 23.6 Code: 54982-5 Heart Rate 1: 70 bpm Height: 5'7" Weight: 151 lbs 04/01/2014 Blood Pressure 1: 118/78 Code: 8480-6 BMI: 24.5 Code: 77951-7 Heart Rate 1: 56 bpm Height: 5'7" Weight: 156 lbs 8 oz 01/13/2014 Blood Pressure 1: 138/64 Code: 8480-6 BMI: 24.4 Code: 32808-3 Heart Rate 1: 54 bpm Height: 5'7" SpO2: 96% Weight: 156 lbs 10/15/2013 Blood Pressure 1: 124/74 Code: 8480-6 BMI: 24.6 Code: 14844-8 Heart Rate 1: 60 bpm Height: 5'7" Weight: 157 lbs 09/11/2013 Blood Pressure 1: 120/62 Code: 8480-6 BMI: 23.6 Code: 28374-9 Heart Rate 1: 64 bpm Height: 5'7" Weight: 151 lbs 08/22/2013 Blood Pressure 1: 120/64 Code: 8480-6 BMI: 24.4 Code: 96966-7 Heart Rate 1: 64 bpm Height: 5'7" Weight: 156 lbs 08/08/2013 Blood Pressure 1: 102/62 Code: 8480-6 BMI: 24.7 Code: 25800-2 Heart Rate 1: 60 bpm Height: 5'7" Weight: 158 lbs 07/29/2013 Blood Pressure 1: 114/74 Code: 8480-6 Heart Rate 1: 60 bpm 06/25/2013 Blood Pressure 1: 128/70 Code: 8480-6 BMI: 24.1 Code: 47351-4 Heart Rate 1: 56 bpm Height: 5'7" SpO2: 98% Weight: 154 lbs 03/26/2013 Blood Pressure 1: 132/78 Code: 8480-6 BMI: 24.6 Code: 62217-5 Heart Rate 1: 60 bpm Height: 5'7" SpO2: 98% Temperature: 36.5 (C ) / 97.7 (F) Weight: 157 lbs 12/25/2012 Blood Pressure 1: 98/60 Code: 8480-6 Heart Rate 1: 64 bpm Weight: 160 lbs 11/20/2012 Blood Pressure 1: 136/80 Code: 8480-6 BMI: 24.6 Code: 96496-2 Heart Rate 1: 68 bpm Height: 5'7" Weight: 157 lbs 08/21/2012 Blood Pressure 1: 112/56 Code: 8480-6 BMI: 23.8 Code: 89237-2 Heart Rate 1: 60 bpm Height: 5'7" Weight: 152 lbs 06/28/2012 Blood Pressure 1: 128/82 Code: 8480-6 Heart Rate 1: 80 bpm Respiratory Rate: 20 bpm Weight: 149 lbs 05/21/2012 Blood Pressure 1: 116/64 Code: 8480-6 BMI: 23.6 Code: 65276-4 Heart Rate 1: 72 bpm Height: 5'7" Weight: 151 lbs 04/26/2012 Blood Pressure 1: 140/80 Code: 8480-6 Heart Rate 1: 76 bpm Respiratory Rate: 16 bpm Temperature: 36.7 (C) / 98.0 (F) Weight: 02/14/2012 Blood Pressure 1: 116/58 Code: 8480-6 BMI: 23.6 Code: 56103-3 Heart Rate 1: 64 bpm Height: 5'7" Respiratory Rate: 18 bpm Weight: 151 lbs 10/11/2011 Blood Pressure 1: 100/54 Code: 8480-6 Heart Rate 1: 60 bpm Respiratory Rate: 16 bpm Weight: 143 lbs 07/12/2011 Blood Pressure 1: 130/62 Code: 8480-6 BMI: 22.9 Code: 68993-5 Heart Rate 1: 62 bpm Height: 5'7" Respiratory Rate: 16 bpm Weight: 146 lbs 05/11/2011 Blood Pressure 1: 120/64 Code: 8480-6 BMI: 23.6 Code: 35835-7 Heart Rate 1: 72 bpm Height: 5'7" Respiratory Rate: 16 bpm Weight: 151 lbs 04/12/2011 Blood Pressure 1: 120/62 Code: 8480-6 BMI: 24.6 Code: 65896-8 Heart Rate 1: 60 bpm Height: 5'7" Respiratory Rate: 16 bpm Weight: 157 lbs 01/11/2011 Blood Pressure 1: 126/68 Code: 8480-6 BMI: 24.7 Code: 15247-9 Heart Rate 1: 50 bpm Height: 5'7" Respiratory Rate: 12 bpm Weight: 158 lbs Functional Status No Functional Status data History of Present Illness Symptom Name Status Resu lt Effective Date Notes hypertension Quality sta ble 10/25/2016 None hypertension [...] lesion Location on the forehead 07/29/2013 right rastafarian skin lesion Onset and Resolution ongoing 07/29/2013 [...] ld 06/25/2013 None cough Location in the roat 03/26/2013 None cough Quality acute 03/26/2013 [...] down to 130lbs but since moving to [place] has gained some weight back hypertension Quality [...] remembering names 01/11/2011 None 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 P ATIENT, LEVEL IV Diagnosis: Essential (primary) hypertension[ICD10: I10] Diagnosis: Mixed hyperlipidemia[ICD10: E78.2] [facility] CPT- 4: 47004 10/25/2016 15137 EST. PATIENT, LEVEL IV Diagnosis: Essential (primary) hypertension[ICD10: I10] Diagnosis: Alzheimer's disease with early onset[ICD10: G30.0] Diagnosis: Pain in left knee[ICD10: M25.562] Diagnosis: Cyst of kidney, acquired[ICD10: N28.1] Nay Martinez MD, [facility] CPT-4: 95347 07/26/2016 ([id number]) 85449 EST. P ATIENT, LEVEL IV Diagnosis: Essential (primary) hypertension[ICD10: I10] Diagnosis: Alzheimer's disease with early onset[ICD10: G30.0] Rosa Martinez MD, [facility] CPT-4: 70016 04/26/2016 ([id number]) 93036 EST. P ATIENT, LEVEL IV Diagnosis: Essential (primary) hypertension[ICD10: I10] Diagnosis: Alzheimer's disease with early onset[ICD10: G30.0] Diagnosis: VACCIN FOR INFLUENZA[ICD10: Z23] Nay Martinez MD, [facility] CPT-4: 06982 01/27/2016 ([id number]) 08783 EST. P ATIENT, LEVEL IV Diagnosis: Essential (primary) hypertension[ICD10: I10] Diagnosis: Alzheimer's disease with early onset[ICD10: G30.0] Nay Martinez MD, [facility] CPT-4: 44321 10/27/2015 ([id number]) 69773 EST. P ATIENT, LEVEL IV Diagnosis: Essential (primary) hypertension[ICD10: I10] Diagnosis: Alzheimer's disease with early onset[ICD10: G30.0] Nay Martinez MD, [facility] CPT-4: 26411 06/30/2015 ([id number]) 98371 EST. P ATIENT, LEVEL IV Diagnosis: Essential (primary) hypertension[ICD10: I10] Diagnosis: Alzheimer's disease with early onset[ICD10: G30.0] [facility] CPT-4: 08710 03/31/2015 35973 EST. PATIENT, LEVEL III Diagnosis: Low back pain[ICD10: M54.5] Fern Martinez MD, [facility] CPT-4: 37516 03/17/2015 ([id number]) 26225 EST. P ATIENT, LEVEL IV Diagnosis: ESSENTIAL HYPERTENSION[ICD9: 401.9] Diagnosis: Encounter for long-term (current) use of anticoagulants[ICD9: V58.61] Diagnosis: Skin change[ICD9: 782.9] Diagnosis: Change in mole[ICD9: 216.9] Diagnosis: VACCIN FOR INFLUENZA[ICD9: V04.81] Nay Martinez MD, [facility] CPT- 4: 23444 01/20/2015 ([id number]) 06303 EST. P ATIENT, LEVEL IV Diagnosis: ESSENTIAL HYPERTENSION[ICD9: 401.9] Diagnosis: OSTEOARTHROSIS-MULT SITE[ICD9: 715.80] Diagnosis: Knee pain[ICD9: 719.46] Diagnosis: ENCNTR LONG-ANTICOAG USE[ICD9: V58.61] [facility] CPT-4: 11023 12/15/2014 ([id number]) 20637 EST. P ATIENT, LEVEL IV Diagnosis: ESSENTIAL HYPERTENSION[ICD9: 401.9] Diagnosis: OSTEOARTHROSIS-MULT SITE[ICD9: 715.80] Diagnosis: Knee pain[ICD9: 719.46] Nay Martinez MD, [facility] CPT-4: 84317 09/30/2014 ([id number]) 32385 EST. P ATIENT, LEVEL IV Diagnosis: Skin cancer[ICD9: 173.90] Diagnosis: ESSENTIAL HYPERTENSION[ICD9: 401.9] Diagnosis: ALZHEIMER'S DISEASE[ICD9: 331.0] Diagnosis: Knee pain[ICD9: 719.46] [facility] CPT-4: 65847 07/01/2014 ([id number]) 15469 EST. P ATIENT, LEVEL IV Diagnosis: ESSENTIAL HYPERTENSION[ICD9: 401.9] Diagnosis: Dysuria[ICD9: 788.1] Diagnosis: Knee pain, bilateral[ICD9: 719.46] Diagnosis: Osteoarthritis[ICD9: 715.90] Diagnosis: Dementia[ICD9: 294.8] [facility] CPT-4: 20297 04/01/2014 ([id number]) 52648 EST. P ATIENT, LEVEL IV Diagnosis: ESSENTIAL HYPERTENSION[ICD9: 401.9] Diagnosis: VACCIN FOR INFLUENZA[ICD10: Z23] Diagnosis: HYPERLIPIDEMIA[ICD9: 272.4] Diagnosis: ALZHEIMER'S DISEASE[ICD9: 331.0] Nay Martinez MD, [facility] CPT-4: 25932 01/13/2014 ([id number]) 58538 EST. P ATIENT, LEVEL IV Diagnosis: Dementia[ICD9: 294.8] Diagnosis: Alzheimer's dementia[ICD9: 331.0] Diagnosis: OSTEOARTHROSIS-MULT SITE[ICD9: 715.80] Diagnosis: ESSENTIAL HYPERTENSION[ICD9: 401.9] Nay Martinez MD, [facility] CPT- 4: 73570 10/15/2013 ([id number]) 22325 EST. P ATIENT, LEVEL III Diagnosis: Knee pain, acute[ICD9: 719.46] Diagnosis: Osteoarthritis[ICD9: 715.90] Diagnosis: Gait instability[ICD9: 781.2] Nay Martinez MD, [facility] CPT-4: 66159 09/11/2013 ([id number]) 45769 EST. P ATIENT, LEVEL III Diagnosis: CELLULITIS OF FACE[ICD9: 682.0] Diagnosis: Esophageal reflux[ICD9: 530.81] Rosa Martinez MD, [facility] CPT- 4: 32720 08/22/2013 03048 EST. PATIENT, LEVEL II Diagnosis: CELLULITIS OF FACE[ICD9: 682.0] Nay Martinez MD, [facility] CPT-4: 00971 08/08/2013 ([id number]) 58513 EST. P ATIENT, LEVEL III Diagnosis: Cellulitis of rastafarian[ICD9: 682.0] Nay Martinez MD, [facility] CPT-4: 49203 07/29/2013 ([id number]) 78173 EST. P ATIENT, LEVEL IV Diagnosis: ESSENTIAL HYPERTENSION[SNOMED: 99654157] Diagnosis: ALZHEIMER'S DISEASE[ICD9: 331.0] Diagnosis: INTEGUMENT TISS SYMP NEC[ICD9: 782.9] Diagnosis: JOINT PAIN-L/LEG[ICD9: 719.46] Nay Martinez MD, [facility] CPT-4: 75802 06/25/2013 ([id number]) 09407 EST. P ATIENT, LEVEL IV Diagnosis: ESSENTIAL HYPERTENSION[SNOMED: 81922476] Diagnosis: ACTINIC KERATOSIS[ICD9: 702.0] Diagnosis: Skin cancer[ICD9: 173.90] Diagnosis: COUGH[ICD9: 786.2] Diagnosis: ACUTE BRONCHITIS[ICD9: 466.0] Nay Martinez MD, [facility] CPT-4: 01879 03/26/2013 05687 EST. PATIENT, LEVEL IV Diagnosis: ESSENTIAL HYPERTENSION[SNOMED: 64542426] Diagnosis: ALZHEIMER'S DISEASE[ICD9: 331.0] Diagnosis: JOINT PAIN-L/LEG[ICD9: 719.46] Diagnosis: MUSCSKEL SYMPT LIMB NEC[ICD9: 729.89] Nay Martinez MD, [facility] CPT-4: 85862 11/20/2012 ([id number]) 35651 EST. P ATIENT, LEVEL IV Diagnosis: ESSENTIAL HYPERTENSION[SNOMED: 20256003] Diagnosis: ALZHEIMER'S DISEASE[ICD9: 331.0] Diagnosis: ENCNTR LONG-ANTICOAG USE[ICD9: V58.61] Diagnosis: Skin change[ICD9: 782.9] Nay Martinez MD, [facility] CPT-4: 20667 08/21/2012 ([id number]) 10172 EST. P ATIENT, LEVEL III Diagnosis: SUBDURAL HEMORRHAGE[ICD9: 432.1] Nay Martinez MD, [facility] CPT-4: 10030 06/28/2012 ([id number]) 40560 EST. P ATIENT, LEVEL IV Diagnosis: ESSENTIAL HYPERTENSION[SNOMED: 27665336] Diagnosis: Subdural hematoma[ICD9: 432.1] Diagnosis: Encounter for long-term (current) use of anticoagulants[ICD9: V58.61] Nay Martinez MD, [facility] CPT-4: 24647 05/21/2012 ([id number]) Patient adm itted to the hospital from clinic (NO CHARGE) Diagnosis: Lower extremity weakness[ICD9: 729.89] Diagnosis: FALL AGAINST OBJECT[ICD9: E888.1] Diagnosis: Gait instability[ICD9: 781.2] Nay Martinez MD, [facility] CPT-4: 79049I 04/26/2012 ([id number]) 54708 EST. P ATIENT, LEVEL IV Diagnosis: ESSENTIAL HYPERTENSION[SNOMED: 82585506] Diagnosis: ALZHEIMER'S DISEASE[ICD9: 331.0] Diagnosis: HYPERLIPIDEMIA[ICD9: 272.4] Nay Martinez MD, [facility] CPT-4: 15326 02/14/2012 ([id number]) 38199 EST. P ATIENT, LEVEL IV Diagnosis: ALZHEIMER'S DISEASE[ICD9: 331.0] Diagnosis: Abnormal loss of weight[ICD9: 783.21] Diagnosis: Knee pain, bilateral[ICD9: 719.46] Diagnosis: ESSENTIAL HYPERTENSION[SNOMED: 08848419] [facility] CPT-4: 79545 10/11/2011 ([id number]) 61183 EST. P ATIENT, LEVEL IV Diagnosis: ESSENTIAL HYPERTENSION[SNOMED: 45814842] Diagnosis: JOINT PAIN-L/LEG[ICD9: 719.46] Diagnosis: Thrush[ICD9: 112.0] Diagnosis: Abdominal pain[ICD9: 789.00] Nay Martinez MD, [facility] CPT-4: 61474 07/12/2011 ([id number]) 41494 EST. P ATIENT, LEVEL III Diagnosis: Knee pain[ICD9: 719.46] Diagnosis: OSTEOARTHROSIS-MULT SITE[ICD9: 715.80] Nay Martinez MD, [facility] CPT-4: 14720 05/11/2011 ([id number]) 74577 EST. P ATIENT, LEVEL IV Diagnosis: Alzheimer's dementia[ICD9: 331.0] Diagnosis: ESSENTIAL HYPERTENSION[SNOMED: 66983213] [facility]ay [facility] CPT-4: 97527 04/12/2011 04752 EST. PATIENT, LEVEL IV Diagnosis: ESSENTIAL HYPERTENSION[SNOMED: 34718283] Diagnosis: HYPERLIPIDEMIA[ICD9: 272.4] Diagnosis: VACCIN FOR INFLUENZA[ICD9: V04.81] Diagnosis: Dementia[ICD9: 294.8] Nay Martinez MD, [facility] CPT-4: 74489 01/11/2011 Plan of Care Planned Activity Notes C odes Status Date Visit Plan: Hypertension - well controll ed - continue with current medications, continue with no added salt diet. Pt has been encouraged to exercise daily.The pt has been advised to call the office if there are any acute concerns about change in blood pressure readings at home.Alzheimer's Dementia - Pt with slowly progressive pattern. I have discussed with pt and family the prognosis of this disease state and the need for the family to anticipate further decline with behavior changes. Continue with current plan of treatment.Hyperlipidemia - pt has been counseled about appropriate [...] assure normal liver response to medications. 10/25/2016 Patient Education: Patient Medication Summary Completed 10/25/2016 Patient Education: Hypertension Completed 10/25/2016 Patient Education: Patient Medication Summary Completed 08/15/2016 Care Plan: I Fecal Occult Blood Cancelled 08/15/2016 Visit Plan: Medicare Exam - today we dis cussed the patients past history, immunizations, preventative exams/evaluations [...] the home. 08/05/2016 Appointment: Rosa Aguilar WPtel[phone] [facility] - Annual Wellness Visit 08/05/2016 Patient Education: Patient Medication Summary Completed 08/05/2016 Visit Plan: Hypertension - well controll ed - continue with current medications, continue with no added salt diet. Pt has been encouraged to exercise daily.The pt has been advised to call the office if there are any acute concerns about change in blood pressure readings at home.Alzheimer's Dementia - Pt with slowly progressive pattern. I have discussed with pt and family the prognosis of this disease state and the need for the family to anticipate further decline with behavior changes. Continue with current plan of treatment.Weakness - Knee pain - recommended therapy with john hansen - will get this set up for patient.Renal cyst - ultrasound ordered for follow up on cyst - for tomorrow. 2016 Appointment: Nay Martinez WPtel: [phone] [facility] [place] (15 min) Moderate 07/26/2016 Patient Education: Patient Medication Summary Completed 07/26/2016 Patient Education: Hypertension Completed 07/26/2016 Visit Plan: Hypertension - well controll ed - continue with current medications, continue with no added salt diet. Pt has been encouraged to exercise daily.The pt has been advised to call the office if there are any acute concerns about change in blood pressure readings at home.Alzheimer's Dementia - Pt with slowly progressive pattern. I have discussed with pt and family the prognosis of this disease state and the need for the family to anticipate further decline with behavior changes. Continue with current plan of treatment. 04/26/2016 Appointment: Rosa Aguilar [facility]el[phone] [phone] [place] (15 min) Moderate 04/26/2016 Patient Education: Patient Medication Summary Completed 04/26/2016 Patient Education: Hypertension Completed 04/26/2016 Visit Plan: Hypertension - well controll ed - continue with current medications, continue with no added salt diet. Pt has been encouraged to exercise daily.The pt has been advised to call the office if there are any acute concerns about change in blood pressure readings at home.Alzheimer's Dementia - Pt with slowly progressive pattern. I have discussed with pt and family the prognosis of this disease state and the need for the family to anticipate further decline with behavior changes. Continue with current plan of treatment. 01/27/2016 Appointment: Nay Martinez WPtel: [phone] [facility] [place] (15 min) Moderate 01/27/2016 Patient Education: Patient Medication Summary Completed 01/27/2016 Patient Education: Hypertension Completed 01/27/2016 Visit Plan: Hypertension - well controll ed - continue with current medications, continue with no added salt diet. Pt has been encouraged to exercise daily.The pt has been advised to call the office if there are any acute concerns about change in blood pressure readings at home.Alzheimer's Dementia - Pt with slowly progressive pattern. I have discussed with pt and family the prognosis of this disease state and the need for the family to anticipate further decline with behavior changes. Continue with current plan of treatment. 10/27/2015 Appointment: Nay Martinez WPtel: [phone] [facility] (15 min) Moderate 10/27/2015 Patient Education: Patient Medication Summary Completed 10/27/2015 Patient Education: Hypertension Completed 10/27/2015 Visit Plan: Hypertension - well controll ed - continue with current medications, continue with no added salt diet. Pt has been encouraged to exercise daily.The pt has been advised to call the office if there are any acute concerns about change in blood pressure readings at home.Alzheimer's Dementia - Pt with slowly progressive pattern. I have discussed with pt and family the prognosis of this disease state and the need for the family to anticipate further decline with behavior changes. Continue with current plan of treatment. 06/30/2015 Appointment: [phone] [place] (15 min) Moderate 06/30/2015 Appointment: Nay Martinez WPtel: [facility] (15 min) Moderate 06/30/2015 Patient Education: Patient Medication Summary Completed 06/30/2015 Patient Education: Hypertension Completed 06/30/2015 Visit Plan: Hypertension - well controll ed - continue with current medications, continue with no added salt diet. Pt has been encouraged to exercise daily.The pt has been advised to call the office if there are any acute concerns about change in blood pressure readings at home.Chronic anticoagulation for mechanical valve.Alzheimer's Dementia - Pt with slowly progressive pattern. I have discussed with pt and family the prognosis of this disease state and the need for the family to anticipate further decline with behavior changes. Continue with current plan of treatment. 03/31/2015 Appointment: Nay Martinez [facility]el[phone] [place] (15 min) Moderate 03/31/2015 Patient Education: Patient Medication Summary Completed 03/31/2015 Patient Education: Hypertension Completed 03/31/2015 Visit Plan: Low back pain- the patient w as instructed in appropriate posture, need for weight [...] Completed 03/17/2015 Visit Plan: Hypertension - well controll ed - continue with current medications, continue with no added salt diet. Pt has been encouraged to exercise daily.The pt has been advised to call the office if there are any acute concerns about change in blood pressure readings at home.Check PT/INR this weekSkin lesion on left cheek. -needs to be seen by Dr. Gigi Anen will need this lesion surgically removed. 01/20/2015 Visit Plan: Hypertension - well controll ed - continue with current medications, continue with no added salt diet. Pt has been encouraged to exercise daily.The pt has been advised to call the office if there are any acute concerns about change in blood pressure readings at home.Check PT/INR this weekSkin lesion on left cheek. -needs to be seen by Dr. Gigi Anne will need this lesion surgically removed. 01/20/2015 Appointment: Nay Martinez WPtel: [facility] (15 min) Moderate 01/20/2015 Patient Education: Patient Medication Summary Completed 01/20/2015 Patient Education: Hypertension Completed 01/20/2015 Care Plan: Referral Order SNOMED-CT : [id number] Ordered 01/20/2015 Appointment: Nay Martinez WPtel: [facility] (15 min) Moderate 12/18/2014 Visit Plan: Hypertension - well controll ed - continue with current medications, continue with no added salt diet. Pt has been encouraged to exercise daily.The pt has been advised to call the office if there are any acute concerns about change in blood pressure readings at home.OA - knee pain improved post- operatively - continue with current treatment, therapy, etc.Chronic Anticoagulant use - Pt has been counseled about the anticoagulant, need for serial monitoring, and need for the pt to alert the physician as to any new bruising, or acute bleeding. Therapeutic goal for INR is between 2.0 and 3.5. 12/15/2014 Appointment: Nay Martinez WPtel: [phone] [facility] (15 min) Moderate 12/15/2014 Patient Education: Patient Medication Summary Completed 12/15/2014 Appointment: (30 min) Complex 12/11/2014 Visit Plan: Hypertension - well controll ed - continue with current medications, continue with no added salt diet. Pt has been encouraged to exercise daily.The pt has been advised to call the office if there are any acute concerns about change in blood pressure readings at home.Knee pain - Pt desires to have his knee operated on at [facility], I have placed a phone call to Dr. Ballesteros - waiting on a call back 09/30/2014 Appointment: Nay Martinez WPtel: [phone] [facility] Follow up 09/30/2014 Patient Education: Patient Medication Summary Completed 09/30/2014 Patient Education: Hypertension Completed 09/30/2014 Visit Plan: Hypertension - well controll ed - continue with current medications, continue with no added salt diet. Pt has been encouraged to exercise daily.The pt has been advised to call the office if there are any acute concerns about change in blood pressure readings at home.Skin Cancer on right side of face - recommended pt to stop use of Efudex on face, monitor symptoms, if not improving, will need to consider removal by general surgeon.Alzheimer's Dementia - Pt with slowly progressive pattern. I have discussed with pt and family the prognosis of this disease state and the need for the family to anticipate further decline with behavior changes. Continue with current plan of treatment.OA - with significant knee pain - referral to Dr. Ballesteros per patient's request - will hopefully be able to use Synvisc for knee. 2014 Appointment: Nay Martinez WPtel: [phone] [facility] Follow up 07/01/2014 Patient Education: Patient Medication Summary Completed 07/01/2014 Patient Education: Hypertension Completed 07/01/2014 Care Plan: Referral Order SNOMED-CT : [id number] Ordered 07/01/2014 Visit Plan: Hypertension - well controll ed - continue with current medications, continue with no added salt diet. Pt has been encouraged to exercise daily.The pt has been advised to call the office if there are any acute concerns about change in blood pressure readings at home.Joint Injection - Pt was given post - injection instructions. The pt has been advised to use anti-inflammatories post injection today, ice to the injected site, call if redness, warmth, or increased pain occurs at the site of injection.Dysuria - check ua today.Alzheimer's Dementia - Pt with slowly progressive pattern. I have discussed with pt and family the prognosis of this disease state and the need for the family to anticipate further decline with behavior changes. Continue with current plan of treatment. 04/01/2014 Appointment: Nay Martinez WPtel: [phone] [facility] Follow up 04/01/2014 Patient Education: Patient Medication Summary Completed 04/01/2014 Visit Plan: Hypertension - well controll ed - continue with current medications, continue with no added salt diet. Pt has been encouraged to exercise daily.The pt has been advised to call the office if there are any acute concerns about change in blood pressure readings at home.Hyperlipidemia - pt has been counseled about appropriate [...] and to assure normal liver response to medications.Alzheimer's Dementia - Pt with slowly progressive pattern. I have discussed with pt and family the prognosis of this disease state and the need for the family to anticipate further decline with behavior changes. Continue with current plan of treatment. 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 10/15/2013 Appointment: Nay Martinez WPtel: [address] [place] [address] Follow up 10/15/2013 Patient Education: Patient Medication Summary Completed 10/15/2013 Patient Education: Hypertension Completed 10/15/2013 Appointment: aNy Martinez WPtel: [address] [place] [address] Follow up 10/02/2013 Visit Plan: Lower leg pain - rx for volt aren gel to be used on right knee four times daily to alleviate pain in knee.Pt to use walker - RX for rolator walker. 09/11/2013 Appointment: Nay Martinez WPtel: [address] [place], [place] [address] Other 09/11/2013 Patient Education: Patient Medication Summary Completed 09/11/2013 Visit Plan: Esophageal Reflux - the mike ent has been counseled against excessive intake of caffiene, spicy foods, peppermint, and cinnamon - all of which can exacerbate esophageal reflux.The patient is to take medications as prescribed and call the office if the symptoms are not improving.Cellulitis-almost completely healed-continue current treatement. 08/22/2013 Appointment: Rosa Aguilar WPtel: [address] [place], [place] [id number] Follow up 08/22/2013 Patient Education: Patient Medication Summary Completed 08/22/2013 Visit Plan: Epgxkhqzang-mlyjgmpu-ybbqnqv e treatment-return in 2 weeks for follow up 08/08/2013 Appointment: [facility] Aguilar [facility]Ptel[phone] Follow up 08/08/2013 Patient Education: Patient Medication Summary Completed 08/08/2013 Visit Plan: Cellulitis - start oral abx as directed, return to clinic as previously directed, call for acute change in symptoms, worsening redness, warmth, discharge. Stop the 5-FU 07/29/2013 Patient Education: Patient Medication Summary Completed 07/29/2013 Visit Plan: Hypertension - well controll ed - continue with current medications, continue with no added salt diet. Pt has been encouraged to exercise daily.The pt has been advised to call the office if there are any acute concerns about change in blood pressure readings at home. Alzheimer's Dementia - Pt with slowly progressive pattern. I have discussed with pt and family the prognosis of this disease state and the need for the family to anticipate further decline with behavior changes. Continue with current plan of treatment.Skin lesion on rastafarian - pt to use flurouracil on lesions on rastafarian.OA of knees - pt to try voltaren gel. 06/25/2013 Appointment: Nay Martinez WPtel: [facility] Follow up 06/25/2013 Patient Education: Patient Medication Summary Completed 06/25/2013 Patient Education: Hypertension Completed 06/25/2013 Visit Plan: Hypertension - well controll ed - continue with current medications, continue with no added salt diet. Pt has been encouraged to exercise daily.The pt has been advised to call the office if there are any acute concerns about change in blood pressure readings at home. Bronchitis - acute case of bronchitis identified. Pt has been given antibiotics, breathing treatments as appropriate, and pt has been instructed to call if symptoms are not improved, or if symptoms acutely worsen.Cough - rx for phenergan with codeine for cough at bedtime and mucinex for daytime use to thin mucus. Wound Instructions - Pt was instruced to keep the wound clean, wash with antibacterial soap, use triple antibiotic ointment, call if redness, pustular drainage, or any other acute conerns. 2012 Appointment: Nay Martinez WPtel: [phone] [facility] Follow up 03/26/2013 Patient Education: Patient Medication Summary Completed 03/26/2013 Patient Education: Hypertension Completed 03/26/2013 Appointment: Rosa Aguilar WPtel: [phone] Nurse Visit 01/14/2013 Patient Education: Patient Medication Summary Completed 01/14/2013 Visit Plan: Wound Instructions - Pt was instruced to keep the wound clean, wash with antibacterial soap, use triple antibiotic ointment, call if redness, pustular drainage, or any other acute conerns. 12/25/2012 Appointment: Rosa Aguilar WPtel: [phone] [phone] Surgical Procedure 12/25/2012 Patient Education: Patient Medication Summary Completed 12/25/2012 Visit Plan: Hypertension - well controll ed - continue with current medications, continue with no added salt diet. Pt has been encouraged to exercise daily.The pt has been advised to call the office if there are any acute concerns about change in blood pressure readings at home. Alzheimer's Dementia - Pt with slowly progressive pattern. I have discussed with pt and family the prognosis of this disease state and the need for the family to anticipate further decline with behavior changes. Continue with current plan of treatment.Peripheral weakness - continue with physical therapy - right leg continues to be weak. 2012 Appointment: Nay Martinez WPtel: [facility] Follow up 11/20/2012 Patient Education: Patient Medication Summary Completed 11/20/2012 Patient Education: Hypertension Completed 11/20/2012 Visit Plan: Hypertension - well controll ed - continue with current medications, continue with no added salt diet. Pt has been encouraged to exercise daily.The pt has been advised to call the office if there are any acute concerns about change in blood pressure readings at home. Alzheimer's Dementia - Pt with slowly progressive pattern. I have discussed with pt and family the prognosis of this disease state and the need for the family to anticipate further decline with behavior changes. Continue with current plan of treatment.Pt noticed some decline in his memory after his subdural hematoma and the neurosurgery that he endured.Pt will be changed to the higher dose of exelon 13.3mg patches to be changed every days. 08/21/2012 Appointment: Nay Martinez WPtel: [address] [place], [place] [phone] Follow up 08/21/2012 Patient Education: Hypertension Completed 08/21/2012 Patient Education: Patient Medication Summary Completed 08/21/2012 Visit Plan: Subdural hematoma-recent fal l-decreased in size with tiny acute component-plan to repeat CT in 2 weeks Low back jujk-sklhdmzqeqa-FI joint Injection today in the office - Pt was given post - injection instructions. The pt has been advised to use antiinflammatories post injection today, ice to the injected site, call if redness, warmth, or increased pain occurs at the site of injection. 06/28/2012 Appointment: Rosa Aguilar WPtel: [id number] [place] [address] Other 06/28/2012 Patient Education: Patient Medication Summary Completed 06/28/2012 Visit Plan: Hypertension - well controll ed - continue with current medications, continue with no added salt diet. Pt has been encouraged to exercise daily.The pt has been advised to call the office if there are any acute concerns about change in blood pressure readings at home.Subdural hematoma- plan a ct scan of his head in 6 weeks. We will fax the ct scan to Dr. Kellogg at .Anticoagulation- recommended pt to continue with lovenox, will check INR on monday of this week. 05/21/2012 Appointment: Nay Martinez WPtel: [address] [place], [place] [phone] [facility] follow up 05/21/2012 Patient Education: Patient Medication Summary Completed 05/21/2012 Patient Education: Hypertension Completed 05/21/2012 Appointment: Nay Martinez WPtel: [address] [place], [place] [phone] Follow up 05/15/2012 Visit Plan: Fall-sudden onset of right l ower extremity weakness-Dr Martinez in to evaluate patient-plan to admit for observation and further work up which includes a STAT CT of the head and labs. Patient and verbalize understanding. 04/26/2012 Appointment: Nay Martinez WPtel: [phone] [facility] balance problem, fall 1 month ago Other 04/26/2012 Patient Education: Patient Medication Summary Completed 04/26/2012 Visit Plan: Hypertension - well controll ed - continue with current medications, continue with no added salt diet. Pt has been encouraged to exercise daily.The pt has been advised to call the [...] of treatment. 02/14/2012 Appointment: Nay Martinez WPtel: [phone] [facility] Established Patient Preventative visit 02/14/2012 Patient Education: Patient Medication Summary Completed 02/14/2012 Patient Education: High Blood Pressure: Essential Hypertension Completed 02/14/2012 Visit Plan: Alzheimer's Dementia - Pt wi th slowly progressive pattern. I have discussed with pt and family the prognosis of this disease state and the need for the family to anticipate further decline with behavior changes. Continue with current plan of treatment.Weight loss - discussed the need for [place] to not loose more weight. He reports that he has actually gained weight in the past few weeks since moving to [facility].Knee pain - has improved with flector patches, no change in current treatment.HTN - controlled - no change in medications. I have encouraged Omid to check his blood pressures occasionally at home and bring in his list at his next office visit. 2011 Appointment: Nay Martinez WPtel: [address] [place] [address] Other 10/11/2011 Patient Education: Patient Medication Summary Completed 10/11/2011 Patient Education: High Blood Pressure: Essential Hypertension Completed 10/11/2011 Visit Plan: Hypertension - well control led - continue with current medications, continue with no added salt diet. Pt has been encouraged to exercise daily.The pt has been advised to call the office if there are any acute concerns about change in blood pressure readings at home.Abdominal pain- STOP IRON - WE WILL CHECK A CBC TODAY AND AGAIN IKnee pain- uncontrolled- but improving, recommend watchful waiting and to use FLECTOR PATCH, 1/4 of a patch and change twice daily.. Call if the pain worsens. ABOUT 2 MONTHS TO SEE IF STOPPING THE IRON HAS CAUSED ANY ADVERSE EFFECTS.Urine checked today.THICK COATING ON THE TONGUE - WILL ORDER A SWISH AND SWALLOW FOR YEAST - THIS MAY BE PART OF THE CAUSE OF THE ABNORMAL TASTE. UTI - pt with positive urinalysis - culture sent if appropriate. Antibiotic electronically prescribed to pt's pharmacy of choice. Pt to call if symptoms do not improve.RETURN TO CLINIC ON MONDAY FOR A COUMADIN CHECK OF BLOOD. 07/12/2011 Appointment: Nay Martinez WPtel: [address] [place] [address] Other 07/12/2011 Patient Education: Patient Medication Summary Completed 07/12/2011 Patient Education: High Blood Pressure: Essential Hypertension Completed 07/12/2011 Visit Plan: Knee pain- uncontrolled- but improving, recommend watchful waiting and to use FLECTOR PATCH, 1/4 of a patch and change twice daily.. Call if the pain worsens. 05/11/2011 Appointment: Nay Martinez WPtel: [address] [place] [address] Other 05/11/2011 Patient Education: Patient Medication Summary Completed 05/11/2011 Visit Plan: Memory loss- symptoms slight ly worsening per the patient report.. I have [...] as a cause for worsening memory loss symptoms.Htn- controlled, no change in medications. 04/12/2011 Appointment: Nay Martinez WPtel: [address] [place], [place] [phone] Other 04/12/2011 Patient Education: Patient Medication Summary Completed 04/12/2011 Patient Education: High Blood Pressure: Essential Hypertension Completed 04/12/2011 Visit Plan: Hypertension - well control led - continue with current medications, continue with no added salt diet. Pt has been encouraged to exercise daily.The pt has been advised to call the office if there are any acute concerns about change in blood pressure readings at home.Dry skin - recommend aveeno body wash and lotion or may try the eucerin lotion.No change in other medications at this time. [...] and to assure normal liver response to medications.Memory loss - dementia - pt with improved and stable symptoms on current regimen, therefore, no change in treatment at this time. 01/11/2011 Appointment: Nay Martinez WPtel: [address] [place], [place] [phone] Other 01/11/2011 Patient Education: Patient Medication Summary Completed 01/11/2011 Referral: Cris Egan Referral Relationship Referral: Dayron Ballesteros Referral Appointment Requested Referral: Kings Valles [facility]Ptel: [phone] [facility] Referral Relationship Referral: Carl Yu Referral Relationship [...] gel. Dementia - symptoms stable, but the tire manager of [employer] is stopping production of the [...] gel. Dementia - symptoms stable, but the tire manager of [employer] is stopping production of the 10mg pills, therefore, Oimd has been given a [employer] xr starter [...] Continue with current plan of treatment. . Knee pain- uncontr olled- but improving, recommend watchful waiting and to use FLECTOR PATCH, 1/4 of a patch and change twice daily.. Call if the pain worsens. . Hypertension - wel l controlled - [...] assure normal liver response to medications. . Lower leg pain - r x [...] repeat CT in 2 weeks Low back vcgd-iectgwkjaeg-YL joint Injection today in the office - Pt was given post - injection instructions. The pt has been advised to use antiinflammatories post injection today, ice to the injected site, call if redness, warmth, or increased pain occurs at the site of injection. . Celllulitis-impro ed-continue treatment-return in 2 weeks for follow up joint juice, glucosa mine - at [facility] ask about welnesse liquid Glucosamine and [...] removed. joint juice, glucosa mine - at [facility] ask about welnesse liquid Glucosamine and chondroitin. increase the omeprazole to one pill twice daily. Monday at 10AM - Dr. Gigi Colbert across the street from Dr. Vlales's office - in Dr. Santiago office - [...] Anne will need this lesion surgically removed. HOLD [...] current plan of treatment. Skin lesion on rastafarian - pt to use flurouracil on lesions on rastafarian. OA of knees - pt to try [...] to have his knee operated on at [facility], I have placed a phone call to [...] INR is between 2.0 and 3.5. . Hypertension - we ll controlled - [...] no change in treatment at this time. stop using the effud ex on the [...] able to use Synvisc for knee. . Hypertension - wel l controlled - [...] Weight loss - discussed the need for [place] to not loose more weight. He reports that he has actually gained weight in the past few weeks since moving to [facility]. Knee pain - has improved with [...]
--- OUTSIDE RECORDS SUMMARY | 2019-07-11 12:44 | XMS REPORT | CCD ---
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 Name Role Phone Nay Martinez PP Unavailable CCM Unavailable Summary Purpose Interface Exchange Insurance Providers Payer name Policy type / Coverage type Covered democrat ID Effective Begin Date Effective End Date WPS Medicare Part B Medicare Part B [id number] Unknown [facility] icare Part B [id number] Un known Family history Mother Diagnosis Age At Onset No Family Disease Entered N/A Father Diagnosis Age At Onset No Family Disease Entered N/A Brother Diagnosis Age At Onset No Family Disease Entered N/A Social History Social History Element Codes Description Effective Dates Number of children Unknown 3 sons 02/14/2018 Living arrangements Unknown Assisted Living Moved in August [address] facility [facility]. 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 04/11/[address]: [id number] Nonsmoker 04/11/2011 Has the patient ever used [...] ICD-9: 530.81 Active 08/22/2013 Unknown Cellulitis of shinto ICD-9: 682.0 Active 07/29/2013 Unknown ACUTE BRONCHITIS [...] reflux ICD-9: 530.81 08/22/2013 Active Cellulitis of shinto ICD-9: 682.0 07/29/2013 Active ACUTE BRONCHITIS ICD-9: [...] Reli ef 50 mcg/actuation nasal spray,suspension RxNorm: 9964683 1 [place] NASAL BID 06/26/2018 07/25/2018 Inactive Namenda 10 mg tablet RxNorm: 281079 1 Tablet(s) PO BID 02/07/2018 09/04/2018 Active omeprazole 20 mg cap mino,delayed release RxNorm: 467506 1 Capsule(s) PO BID 02/07/2018 09/04/2018 Ac tive omeprazole 20 mg cap mino,delayed release RxNorm: 205955 1 Capsule(s) PO BID 01/25/2018 02/06/2018 In active ropinirole 1 mg tablet RxNorm: 581013 1 Tablet(s) PO daily 01/17/2018 07/10/2019 Active Zyrtec 10 mg tablet RxNorm: 3645197 1 Tablet(s) PO daily 11/08/2017 06/05/2018 Inactive atorvastatin 20 mg t ablet RxNorm: 968479 1 Tablet(s) PO daily 08/09/2017 03/06/2018 Inactive Namenda 10 mg tablet RxNorm: 714934 1 Tablet(s) PO BID 07/24/2017 10/21/2017 Inactive Insurance denied Namenda XR 28mg Namenda 10 mg tablet RxNorm: 518521 1 Tablet(s) PO BID 07/24/2017 07/23/2017 Inactive Insurance denied Namenda XR 28mg Cerefolin NAC 600 mg -2 mg-6 mg tablet RxNorm: TAKE ONE CAPLET BY MOUTH ON E TIME DAILY 07/11/2017 07/05/2018 Inactive Aricept 10 mg tablet RxNorm: 653730 1 Tablet(s) PO daily 06/01/2017 05/26/2018 Inactive Aricept 10 mg tablet RxNorm: 442197 1 Tablet(s) PO daily 06/01/2017 05/31/2017 Inactive Cerefolin NAC 600 mg -2 mg-6 mg tablet RxNorm: TAKE ONE TABLET BY MOUTH ON E TIME DAILY 07/06/2016 06/30/2017 Inactive fluorouracil 5 % top ical cream RxNorm: 181746 1 Application TOP luz ly use daily x 1 week, then stop use, let tissue heal x1wk, if still dry patchy, then restart the medication x 1 week 01/29/2016 02/07/2016 Inactive omeprazole 20 mg cap mino,delayed release RxNorm: 871059 1 Capsule(s) PO BID 01/20/2015 06/18/2015 In active Bactroban 2 % topica l cream RxNorm: 032452 1 Application TOP BID as needed 12/18/2014 03/30/2015 In active Cerefolin NAC 600 mg -2 mg-6 mg tablet RxNorm: 1 Tablet(s) PO daily 07/01/2014 06/25/2015 Inactive [SAVINGS FOR NON-COVERED DRUGS -- BIN:00 [id number], PCN: [id number], Group: XXXXX, ID# [id number], Questions: . THIS IS NOT INSURANCE.] Kenalog 40 mg/mL tess pension for injection RxNorm: 4245856 Milliliter(s) Inj 04/01/2014 04/01/2014 In active Namenda XR 7 mg-14 m g-21 mg-28 mg capsule,sprinkle,ER 24hr,dose pack RxNorm: 465314 1 Capsule(s) PO daily 10/15/2013 11/13/2013 Inactive Namenda XR 28 mg cap mino sprinkle,ER 24hr RxNorm: 530028 1 Capsule(s) PO daily 10/15/2013 07/23/2017 In active Bactrim DS 800 mg-16 0 mg tablet RxNorm: 345502 1/2 Tablet(s) PO dale y 10/15/2013 03/30/2015 In active Voltaren 1 % topical gel RxNorm: 054220 4 Gram(s) TOP QID 09/11/2013 01/08/2014 Inactive dispense 5 tubes Bactroban 2 % topica l cream RxNorm: 965845 1 Application TOP BID 07/29/2013 08/04/2013 Inactive ciprofloxacin 500 mg tablet RxNorm: 788304 1 Tablet(s) PO BID 07/29/2013 08/04/2013 Inactive fluorouracil 5 % top ical cream RxNorm: 465007 1 Application TOP luz ly use daily x 1 week, then stop use, let tissue heal x1wk, if still dry patchy, then restart the medication x 1 week 06/25/2013 07/04/2013 Inactive levofloxacin 500 mg tablet RxNorm: 284910 1 Tablet(s) PO daily 03/26/2013 03/30/2013 Inactive Cerefolin NAC 600 mg -2 mg-6 mg tablet RxNorm: 1 Tablet(s) PO daily 11/05/2012 10/30/2013 Inactive Kenalog 40 mg/mL Tess p for Injection RxNorm: 4377552 1 Milliliter(s) Inj 06/29/2012 06/29/2012 In active Exelon 9.5 mg/24 ricki r Transderm 24 hr Patch RxNorm: 129416 Patch 24 hr TD APPLY 1 PATCH DAILY DIRECTED 04/25/2012 08/20/2012 Inactive omeprazole 20 mg cap mino,delayed release RxNorm: 607151 1 Capsule(s) PO daily 04/09/2012 04/03/2013 In active omeprazole 20 mg cap mino,delayed release RxNorm: 261254 Capsule(s) PO TAKE 1 CAPSULE BY MOUTH EVERY DAY 04/09/2012 01/19/2015 Inactive warfarin 4 mg tablet RxNorm: 395035 1 Tablet(s) PO 11/28/2011 11/21/2012 Inactive TAKE 1 TABLET BY MOUTH DAILY Cerefolin NAC 600 mg -2 mg-6 mg tablet RxNorm: 1 Tablet(s) PO daily 11/28/2011 11/04/2012 Inactive warfarin 4 mg tablet RxNorm: 325001 Tablet(s) PO 08/07/2011 11/27/2011 Inactive TAKE 1 TABLET BY MOUTH DAILY Flector 1.3 % [place]hesi ve Patch RxNorm: 196974 1 Application TOP BID 07/12/2011 02/06/2012 Inactive levofloxacin 500 mg Tab RxNorm: 736025 1 Tablet(s) PO daily 07/12/2011 07/16/2011 Inactive nystatin 100,000 uni t/mL Oral Susp RxNorm: 982512 3 Milliliter(s) BUCC TID 07/12/2011 07/21/2011 In active lisinopril 20 mg Tab RxNorm: 969364 1 Tablet(s) PO daily 04/12/2011 04/05/2012 Inactive TAKE ONE TABLET BY MOUTH DAILY;Patient requests 90 day supply omeprazole 20 mg cap mino,delayed release RxNorm: 847650 1 Capsule(s) PO daily 04/12/2011 04/05/2012 In active Namenda 10 mg Tab RxNorm: 634385 1 Tablet(s) PO BID 04/12/2011 04/05/2012 Inactive metoprolol succinate ER 50 mg 24 hr Tab RxNorm: 171167 1 Tablet(s) PO daily 04/12/2011 04/05/2012 In active ropinirole 1 mg Tab RxNorm: 952533 1 Tablet(s) PO daily 04/12/2011 04/05/2012 Inactive TAKE 1 TABLET BY MOUTH EVERY NIGHT AT BE DTIME;Patient requests 90 day supply Bactrim DS 800 mg-16 0 mg Tab RxNorm: 094025 1/2 Tablet(s) PO daily 04/12/2011 04/05/2012 Inactive Exelon 9.5 mg/24 ricki r Transderm 24 hr Patch RxNorm: 512827 1 Patch TD daily 04/12/2011 04/05/2012 In active melatonin 3 mg Tab RxNorm: 949673 1 Tablet(s) PO QHS 04/11/2011 No Stop Date Active Fish Oil 900 mg-1,40 0 mg Cap, Delayed Release RxNorm: 1 Capsule(s) PO BID 04/11/2011 10/27/2015 In active Tylenol Arthritis 65 0 mg Tab RxNorm: 6588417 2 Tablet(s) PO QAM 04/11/2011 10/27/2015 Inactive Bactrim DS 800 mg-16 0 mg Tab RxNorm: 712047 1/2 Tablet(s) PO daily 04/11/2011 04/11/2011 Inactive lisinopril 20 mg Tab RxNorm: 550032 Tablet(s) PO 04/07/2011 04/11/2011 Inactive TAKE ONE TABLET BY MOUTH DAILY;Patient requests 90 day supply ropinirole 1 mg Tab RxNorm: 697677 Tablet(s) PO 04/07/2011 04/11/2011 Inactive TAKE 1 TABLET BY MOUTH EVERY NIGHT AT BEDTIME;Patient requests 90 day supply lisinopril 20 mg Tab RxNorm: 038186 1 Tablet(s) PO daily 04/06/2011 04/06/2011 Inactive ropinirole 1 mg Tab RxNorm: 580198 1 Tablet(s) PO daily 04/06/2011 04/06/2011 Inactive Influenza Virus Vacc ine 0.5 mL RxNorm: IM 01/11/2011 01/11/2011 Inactive Osteo Bi-Flex Triple Strength RxNorm: 2 PO daily No S tart Date Active Bactrim DS 800 mg-16 0 mg tablet RxNorm: 773797 1/2 Tablet(s) PO dale y No Start Date Active isosorbide mononitra te ER 30 mg tablet,extended release 24 hr RxNorm: 350209 1 Tablet(s) PO daily No Start Date Active Vitamin B-12 5,000 m cg/mL sublingual drops RxNorm: 3486790 1 Milliliter(s) SL d aily No Start Date Active Tylenol Extra Streng th 500 mg tablet RxNorm: 928021 2 Tablet(s) PO BID No Start Date Active aspirin 81 mg Tab, D elayed Release RxNorm: 131622 1 Tablet(s) PO daily No Start Date Active warfarin 4 mg tablet RxNorm: 135518 1 Tablet(s) PO daily No Start Date Active Centrum Silver Oral RxNorm: Oral No Start Date Active lisinopril 20 mg tablet RxNorm: 180207 1 Tablet(s) PO daily No Start Date Active Fish Oil 300 mg-1,00 0 mg capsule RxNorm: 081764 1 Capsule(s) PO daily No Start Date Active Calcium 500 + D (D3) Oral RxNorm: Oral No Start D ate Active Exelon 13.3 mg/24 ho ur Transderm 24 hr Patch RxNorm: 2342771 TD No Start Date Active metoprolol succinate ER 50 mg tablet,extended release 24 hr RxNorm: 157735 1 Tablet(s) PO daily No Start Date Active Cerefolin NAC 600 mg -2 mg-6 mg tablet RxNorm: 1 Tablet(s) PO daily No Start Date 11/27/2011 Inactive Lipitor 40 mg tablet RxNorm: 335180 1 Tablet(s) PO daily ordered by dr broussard No Start Date 08/08/2017 Inactive lisinopril 20 mg Tab RxNorm: 188775 1 Tablet(s) PO daily No Start Date 04/05/2011 Inactive hydrocodone-acetamin ophen 5 mg-325 mg tablet RxNorm: 8048985 1 Tablet(s) PO BID No Start Date 01/19/2015 Inactive omeprazole 20 mg Cap , Delayed Release RxNorm: 075553 1 Capsule(s) PO daily No Start Date 04/11/2011 Inactive metoprolol succinate ER 50 mg 24 hr Tab RxNorm: 879268 1 Tablet(s) PO daily No Start Date 04/11/2011 Inactive Exelon 9.5 mg/24 ricki r Transderm 24 hr Patch RxNorm: 798321 1 Patch TD daily No Start Date 04/11/2011 Inactive warfarin 4 mg Tab RxNorm: 232180 1 Tablet(s) PO daily No Start Date 08/06/2011 Inactive multivitamin Oral RxNorm: Oral No Start Date 07/26/2016 Inactive melatonin 3 mg Tab RxNorm: 153716 Oral No Start Date 04/10/2011 Inactive ropinirole 1 mg tablet RxNorm: 901234 1 Tablet(s) PO daily No Start Date 01/16/2018 Inactive iron 134 mg (27 mg i iron) Tab RxNorm: 313491 1 Tablet(s) PO daily No Start Date 10/26/2015 Inactive Fish Oil 900 mg-1,40 0 mg Cap, Delayed Release RxNorm: 1 Capsule(s) PO daily No Start Date 04/10/2011 Inactive Bactrim DS 800 mg-16 0 mg Tab RxNorm: 579882 Oral No S tart Date 04/10/2011 Inactive metoprolol tartrate 50 mg Tab RxNorm: 150336 1 Tablet(s) PO daily No Start Date 04/10/2011 Inactive Tylenol Arthritis 65 0 mg Tab RxNorm: 5475017 Oral No Start Date 04/10/2011 Inactive Namenda 10 mg Tab RxNorm: 203989 1 Tablet(s) PO BID No Start Date 04/11/2011 Inactive ropinirole 1 mg Tab RxNorm: 658766 1 Tablet(s) PO daily No Start Date 04/05/2011 Inactive Medication Administered Medication Codes Instruc tions Start Date Status Kenalog 40 mg/mL suspension for injection RxNorm: 4373133 Milliliter 04/01/2014 No longer Active Kenalog 40 mg/mL Susp for Injection RxNorm: 9072698 1Milliliter 06/29/2012 N o longer Active Influenza [...] Code Item Item Code Result Date Pt [id number] PT 59.2 Result Verified By Repeat Analysis seconds 08/27/2018 Pt Rod8182 INR 6.8 Result Verified By Repeat Analysis 08/27/2018 Pt Xcl8396 Low Intensity - 1.5-2.0 08/27/2018 Pt Zdd5688 Mod intensity - 2.0-3.0 08/27/2018 Pt Ljg7137 Hi intensity - 3.0-4.0 08/27/2018 Comp Metabolic Ucb840 NA 143 mEq/L 08/08/2017 Comp Metabolic Vat049 K 5.3 mEq/L 08/08/2017 Comp Metabolic Vii670 CL 112 mEq/L 08/08/2017 Comp Metabolic Lbs964 CO2 27.0 mEq/L 08/08/2017 Comp Metabolic Hmy198 AN ION GAP 9 08/08/2017 Comp Metabolic Hsn100 GL UCOSE 88 mg/dL 08/08/2017 Comp Metabolic Wsy749 Cr eat 1.1 mg/dL 08/08/2017 Comp Metabolic Kem056 eG FR 71 ml/min/1.73m2 08/08 Comp Metabolic Evk186 BUN 26 mg/dL 08/08/2017 Comp Metabolic Ycu719 B/ C Ratio 24.5 Ratio 08/08/2017 Comp Metabolic Tja479 CA LCIUM 9.0 mg/dL 08/08/2017 Comp Metabolic Sbg619 AL K PHOS 49 U/L 08/08/2017 Comp Metabolic Tac535 T(SGOT) 32 U/L 08/08/2017 Comp Metabolic Tqm928 AL T(SGPT) 25 U/L 08/08/2017 Comp Metabolic Qfp263 BI LI T 0.7 mg/dL 08/08/2017 Comp Metabolic Aku986 AL BUMIN 4.2 g/dL 08/08/2017 Comp Metabolic Uth097 TP RO 6.0 g/dL 08/08/2017 Comp Metabolic Qtu729 GL OB 1.9 g/dL 08/08/2017 Comp Metabolic Abd628 A/ G Ratio 2.2 Ratio 08/08/2017 Comp Metabolic Tno216 Os mo 289 mOsmo 08/08/2017 Lipid Ord30 CHOL 110 mg/dL 08/08/2017 Lipid Ord30 HDL 57.0 mg/dl 08/08/2017 Lipid Ord30 TRIG 83 mg/dL 08/08/2017 Lipid Ord30 LDL 36 mg/dL 08/08/2017 Lipid Ord30 C/HDL 1.9 Ratio 08/08/2017 Comp Metabolic Aet968 NA 141 mEq/L 01/28/2016 Comp Metabolic Rvx351 K 4.5 mEq/L 01/28/2016 Comp Metabolic Xab893 CL 111 mEq/L 01/28/2016 Comp Metabolic Orb515 CO2 27.0 mEq/L 01/28/2016 Comp Metabolic Kaq413 AN ION GAP 8 01/28/2016 Comp Metabolic Qlj458 GL UCOSE 88 mg/dL 01/28/2016 Comp Metabolic Ack463 Cr eat 1.1 mg/dL 01/28/2016 Comp Metabolic Omu773 eG FR 69 ml/min/1.73m2 01/27 Comp Metabolic Dnw948 BUN 23 mg/dL 01/28/2016 Comp Metabolic Pca279 B/ C Ratio 21.3 Ratio 01/28/2016 Comp Metabolic Irz461 CA LCIUM 9.0 mg/dL 01/28/2016 Comp Metabolic Jsq091 AL K PHOS 48 U/L 01/28/2016 Comp Metabolic Shp496 T(SGOT) 28 U/L 01/28/2016 Comp Metabolic Pwf039 AL T(SGPT) 20 U/L 01/28/2016 Comp Metabolic Hfo482 BI LI T 0.8 mg/dL 01/28/2016 Comp Metabolic Xlc385 AL BUMIN 4.0 g/dL 01/28/2016 Comp Metabolic Glg246 TP RO 6.0 g/dL 01/28/2016 Comp Metabolic Zsf501 GL OB 2.0 g/dL 01/28/2016 Comp Metabolic Pep355 A/ G Ratio 2.0 Ratio 01/28/2016 Comp Metabolic Rka351 Os mo 284 mOsmo 01/28/2016 Lipid Ord30 [...] 34.5 pg 01/28/2016 Cbc With Differential Ord2 [place]% 10.0 % 01/28/2016 Cbc With Differential Ord2 [...] 1.17 K/ul 01/28/2016 Cbc With Differential Ord2 [place]ern ABS# 0.6 K/ul 01/28/2016 Cbc With Differential Ord2 Eos ABS# 0.1 K/ul 01/28/2016 Cbc With Differential Ord2 Baso ABS# 0.0 K/ul 01/28/2016 Total Psa Ord10 PSA 2.96 ng/mL 01/28/2016 Pt Shp2983 PT 25.8 seconds 08/07/2015 Pt Mwq1935 INR 2.5 08/07/2015 Pt Hhn1763 Low Intensity - 1.5-2.0 08/07/2015 Pt Klw8621 Mod intensity - 2.0-3.0 08/07/2015 Pt Cfr7879 Hi intensity - 3.0-4.0 08/07/2015 Lipid Ord30 CHOL 102 mg/dL 08/07/2015 Lipid Ord30 HDL 50.0 mg/dl 08/07/2015 Lipid Ord30 TRIG 73 mg/dL 08/07/2015 Lipid Ord30 LDL 37 mg/dL 08/07/2015 Lipid Ord30 C/HDL 2.0 Ratio 08/07/2015 Hepatic Vri945 ALBUMIN 4.0 g/dL 08/07/2015 Hepatic Bza015 TPRO 6.0 g/dL 08/07/2015 Hepatic Vwo483 GLOB 2.0 g/dL 08/07/2015 Hepatic Bcm885 A/G Ratio 2.0 Ratio 08/07/2015 Hepatic Eqq204 ALK PHOS 47 U/L 08/07/2015 Hepatic Afr298 ALT(SGPT) 20 U/L 08/07/2015 Hepatic Ygm933 AST(SGOT) 26 U/L 08/07/2015 Hepatic Wua124 BILI T 0.6 mg/dL 08/07/2015 Hepatic Yor569 BILI D 0.2 mg/dL 08/07/2015 Hepatic Guo964 BILI I 0.4 mg/dL 08/07/2015 Pt Oox6181 PT 24.3 seconds 12/22/2014 Pt Gka6891 INR 2.3 12/22/2014 Pt Sjd9489 Low Intensity - 1.5-2.0 12/22/2014 Pt Wdh1388 Mod intensity - 2.0-3.0 12/22/2014 Pt Gpk9432 Hi intensity - 3.0-4.0 12/22/2014 URINALYSIS NONAUTO W/O SCOPE 82146 Specific [place] 1.030 DateTime(Free Text in Apr) URINALYSIS NONAUTO W/O SCOPE 53737 PH 6.5 DateTime(Free Ryan t in Apr) URINALYSIS NONAUTO W/O SCOPE 03371 GLUCOSE neg DateTime(Free Ryan t in Apr) URINALYSIS NONAUTO W/O SCOPE 32633 Protein trace DateTime(Free T ext in Apr) URINALYSIS NONAUTO W/O SCOPE 05319 Blood 3+ DateTime(Free Text in ) URINALYSIS NONAUTO W/O SCOPE 16030 Bilirubin neg DateTime(Free Ryan t in ) URINALYSIS NONAUTO W/O SCOPE 89942 Ketones neg DateTime(Free Ryan t in ) URINALYSIS NONAUTO W/O SCOPE 03873 Urobilinogen neg DateTime(Free Text in ) URINALYSIS NONAUTO W/O SCOPE 66707 Nitrite neg DateTime(Free Ryan t in ) URINALYSIS NONAUTO W/O SCOPE 91616 Leukocytes neg DateTime(Free Text in ) Review [...] inspection of skin Dermatitis: erythema 08/22/2013 right shinto, no open are as, scabbed lesion healed [...] palp - head/face Location: on the right shinto 08/08/2013 --Improved Full Exam - Dermatology Integument [...] palp - head/face Location: on the right shinto 07/29/2013 None Full Exam - Dermatology Integument [...] inspection of skin Dermatitis: erythema 06/25/2013 left shinto, with irritat ed center of lesion Full [...] inspection of skin Dermatitis: erythema 03/26/2013 left shinto, with irritat ed center of lesion Full [...] nourished 10/11/2011 None Full Exam - General 1995 Constitutional general appearance Overall: well developed 10/11/2011 [...] clear 01/11/2011 None Full Exam - General 1995 Ears/Nose/Throat [...] VACC PRSV FREE I NC ANTIG CPT-4: 14973 01/25/2017 PPPS, SUBSEQ VISIT CPT- 4: G0439 08/05/2016 ADMIN PNEUMOCOCCAL V ACCINE SNOMED CT: 39868633 CPT-4: G0009 04/26/2016 Pneumococcal Polysac charide Vaccine, 23-Valent, Ad Formatting Model/CDA Sections, Assigned to/Raquel Shelley CPT-4: 24820Afiugjz 04/26/2016 ADMIN INFLUENZA VIRU S VAC CPT-4: G0008 01/27/2016 FLU VACC 4 JULISA 3 YRS PLUS IM Formatting Model/CDA Sections, Assigned to/Raquel Shelley SNOMED CT: 42773925 CPT-4: 19787Kufhrvu 01/27/2016 ADMIN INFLUENZA VIRU S VAC Formatting Model/CDA Sections, Assigned to CPT-4: C7554Fbherdw 01/20/2015 FLU VACC 4 JULISA 3 YRS PLUS IM SNOMED CT: 33191448 CPT-4: 91852 01/20/2015 DRAIN/INJECT JOINT/B URSA CPT-4: 57849 04/01/2014 TRIAMCINOLONE ACET I [place] NOS CPT-4: J3301 04/01/2014 URINALYSIS NONAUTO W /O SCOPE CPT-4: 61501 04/01/2014 ADMIN INFLUENZA VIRU S VAC Assigned to/Raquel Shelley CPT-4: X7151Ioftbgh 01/13/2014 FLU VAC NO PRSV 4 VA L 3 YRS+ Assigned to/Raquel Shelley CPT-4: 72492Eocorty 01/13/2014 PRESCRIP TRANSMIT A ERX SY CPT-4: G8553 03/26/2013 ADMIN INFLUENZA VIRU S VAC CPT-4: G0008 01/14/2013 FLULAVAL VACC, 3 YRS & >, IM CPT-4: Q2036 01/14/2013 DESTRUCT PREMALG LESION CPT-4: 18331 12/25/2012 PRESCRIP TRANSMIT A ERX SY CPT-4: G8553 08/21/2012 DRAIN/INJECT JOINT/B URSA CPT-4: 28532 06/28/2012 TRIAMCINOLONE ACET I [place] NOS CPT-4: J3301 06/28/2012 ADMIN INFLUENZA VIRU S VAC CPT-4: G0008 02/14/2012 FLULAVAL VACC, 3 YRS & >, IM CPT-4: Q2036 02/14/2012 URINALYSIS NONAUTO W /O SCOPE CPT-4: 19969 07/12/2011 PRESCRIP TRANSMIT A ERX SY CPT-4: G8553 07/12/2011 ADMIN INFLUENZA VIRU S VAC CPT-4: G0008 01/11/2011 FLULAVAL VACC, 3 YRS & >, IM CPT-4: Q2036 01/11/2011 Vital Signs Date Vital 07/25/2018 Blood Pressure 1: 126/70 Code: 8480-6 BMI: 21.1 Code: 68901-0 Heart Rate 1: 57 bpm Height: 5'7" SpO2: 99% Weight: 135 lbs 07/05/2018 Blood Pressure 1: 124/60 Code: 8480-6 BMI: 21.3 Code: 17907-5 Heart Rate 1: 68 bpm Height: 5'7" SpO2: 97% Weight: 135 lbs 14 o z 06/26/2018 Blood Pressure 1: 128/76 Code: 8480-6 BMI: 21.6 Code: 32920-6 Heart Rate 1: 82 bpm Height: 5'7" SpO2: 95% Weight: 138 lbs 03/27/2018 Blood Pressure 1: 122/70 Code: 8480-6 BMI: 21.1 Code: 06867-6 Heart Rate 1: 76 bpm Height: 5'7" SpO2: 96% Weight: 135 lbs 02/14/2018 Blood Pressure 1: 102/58 Code: 8480-6 BMI: 21.5 Code: 76657-4 Heart Rate 1: 78 bpm Height: 5'7" SpO2: 98% Weight: 137 lbs 11/08/2017 Blood Pressure 1: 132/68 Code: 8480-6 BMI: 21.9 Code: 72367-3 Heart Rate 1: 66 bpm Height: 5'7" SpO2: 98% Weight: 140 lbs 08/11/2017 Blood Pressure 1: 11868 Code: 8480-6 BMI: 22.2 Code: 22607-3 Heart Rate 1: 63 bpm Height: 5'7" SpO2: 98% Waist Measure (cm): 61 cm Weight: 142 lbs 08/09/2017 Blood Pressure 1: 11868 Code: 8480-6 BMI: 22.4 Code: 29982-6 Heart Rate 1: 60 bpm Height: 5'7" SpO2: 98% Weight: 143 lbs 04/11/2017 Blood Pressure 1: 122/68 Code: 8480-6 BMI: 23.0 Code: 59627-4 Heart Rate 1: 65 bpm Height: 5'7" SpO2: 98% Weight: 147 lbs 01/25/2017 Blood Pressure 1: 136/58 Code: 8480-6 BMI: 23.0 Code: 18464-0 Heart Rate 1: 63 bpm Height: 5'7" SpO2: 96% Weight: 147 lbs 12/21/2016 Blood Pressure 1: 112/52 Code: 8480-6 BMI: 23.0 Code: 50759-4 Heart Rate 1: 73 bpm Height: 5'7" SpO2: 97% Weight: 147 lbs 12/01/2016 Blood Pressure 1: 128/76 Code: 8480-6 BMI: 22.7 Code: 83535-6 Heart Rate 1: 67 bpm Height: 5'7" SpO2: 95% Weight: 145 lbs 10/25/2016 Blood Pressure 1: 128/70 Code: 8480-6 BMI: 23.5 Code: 16572-2 Heart Rate 1: 62 bpm Height: 5'7" SpO2: 96% Weight: 150 lbs 08/05/2016 Blood Pressure 1: 110/58 Code: 8480-6 BMI: 23.3 Code: 83133-5 Heart Rate 1: 65 bpm Height: 5'7" SpO2: 95% Waist Measure (cm): 102 cm Weight: 149 lbs 07/26/2016 Blood Pressure 1: 112/64 Code: 8480-6 BMI: 23.3 Code: 25230-8 Heart Rate 1: 62 bpm Height: 5'7" SpO2: 95% Weight: 149 lbs 04/26/2016 Blood Pressure 1: 124/68 Code: 8480-6 BMI: 23.8 Code: 69617-4 Heart Rate 1: 64 bpm Height: 5'7" SpO2: 98% Weight: 152 lbs 01/27/2016 Blood Pressure 1: 118/70 Code: 8480-6 BMI: 24.0 Code: 06535-1 Heart Rate 1: 64 bpm Height: 5'7" SpO2: 97% Weight: 153 lbs 10/27/2015 Blood Pressure 1: 114/60 Code: 8480-6 BMI: 23.7 Code: 81875-2 Heart Rate 1: 61 bpm Height: 5'7" SpO2: 97% Weight: 151 lbs 8 oz 06/30/2015 Blood Pressure 1: 102/60 Code: 8480-6 BMI: 23.9 Code: 53352-4 Heart Rate 1: 70 bpm Height: 5'7" SpO2: 97% Weight: 152 lbs 8 oz 03/31/2015 Blood Pressure 1: 122/64 Code: 8480-6 BMI: 23.2 Code: 40783-5 Heart Rate 1: 64 bpm Height: 5'7" SpO2: 97% Weight: 148 lbs 03/17/2015 Blood Pressure 1: 142/76 Code: 8480-6 BMI: 23.5 Code: 88843-0 Heart Rate 1: 64 bpm Height: 5'7" SpO2: 98% Weight: 150 lbs 01/20/2015 Blood Pressure 1: 128/64 Code: 8480-6 BMI: 22.9 Code: 93195-2 Heart Rate 1: 72 bpm Height: 5'7" SpO2: 96% Weight: 146 lbs 12/15/2014 Blood Pressure 1: 110/60 Code: 8480-6 BMI: 21.9 Code: 94762-3 Heart Rate 1: 88 bpm Height: 5'7" SpO2: 96% Weight: 140 lbs 09/30/2014 Blood Pressure 1: 146/70 Code: 8480-6 BMI: 23.5 Code: 01705-5 Heart Rate 1: 53 bpm Height: 5'7" SpO2: 94% Weight: 150 lbs 07/01/2014 Blood Pressure 1: 140/62 Code: 8480-6 BMI: 23.6 Code: 57775-2 Heart Rate 1: 70 bpm Height: 5'7" Weight: 151 lbs 04/01/2014 Blood Pressure 1: 118/78 Code: 8480-6 BMI: 24.5 Code: 08476-7 Heart Rate 1: 56 bpm Height: 5'7" Weight: 156 lbs 8 oz 01/13/2014 Blood Pressure 1: 138/64 Code: 8480-6 BMI: 24.4 Code: 62764-9 Heart Rate 1: 54 bpm Height: 5'7" SpO2: 96% Weight: 156 lbs 10/15/2013 Blood Pressure 1: 124/74 Code: 8480-6 BMI: 24.6 Code: 67405-2 Heart Rate 1: 60 bpm Height: 5'7" Weight: 157 lbs 09/11/2013 Blood Pressure 1: 120/62 Code: 8480-6 BMI: 23.6 Code: 16135-0 Heart Rate 1: 64 bpm Height: 5'7" Weight: 151 lbs 08/22/2013 Blood Pressure 1: 120/64 Code: 8480-6 BMI: 24.4 Code: 60173-3 Heart Rate 1: 64 bpm Height: 5'7" Weight: 156 lbs 08/08/2013 Blood Pressure 1: 102/62 Code: 8480-6 BMI: 24.7 Code: 65976-5 Heart Rate 1: 60 bpm Height: 5'7" Weight: 158 lbs 07/29/2013 Blood Pressure 1: 114/74 Code: 8480-6 Heart Rate 1: 60 bpm 06/25/2013 Blood Pressure 1: 128/70 Code: 8480-6 BMI: 24.1 Code: 03882-1 Heart Rate 1: 56 bpm Height: 5'7" SpO2: 98% Weight: 154 lbs 03/26/2013 Blood Pressure 1: 132/78 Code: 8480-6 BMI: 24.6 Code: 02633-1 Heart Rate 1: 60 bpm Height: 5'7" SpO2: 98% Temperature: 36.5 (C ) / 97.7 (F) Weight: 157 lbs 12/25/2012 Blood Pressure 1: 98/60 Code: 8480-6 Heart Rate 1: 64 bpm Weight: 160 lbs 11/20/2012 Blood Pressure 1: 136/80 Code: 8480-6 BMI: 24.6 Code: 78703-4 Heart Rate 1: 68 bpm Height: 5'7" Weight: 157 lbs 08/21/2012 Blood Pressure 1: 112/56 Code: 8480-6 BMI: 23.8 Code: 03528-5 Heart Rate 1: 60 bpm Height: 5'7" Weight: 152 lbs 06/28/2012 Blood Pressure 1: 128/82 Code: 8480-6 Heart Rate 1: 80 bpm Respiratory Rate: 20 bpm Weight: 149 lbs 05/21/2012 Blood Pressure 1: 116/64 Code: 8480-6 BMI: 23.6 Code: 74837-0 Heart Rate 1: 72 bpm Height: 5'7" Weight: 151 lbs 04/26/2012 Blood Pressure 1: 140/80 Code: 8480-6 Heart Rate 1: 76 bpm Respiratory Rate: 16 bpm Temperature: 36.7 (C) / 98.0 (F) Weight: 02/14/2012 Blood Pressure 1: 116/58 Code: 8480-6 BMI: 23.6 Code: 10505-8 Heart Rate 1: 64 bpm Height: 5'7" Respiratory Rate: 18 bpm Weight: 151 lbs 10/11/2011 Blood Pressure 1: 100/54 Code: 8480-6 Heart Rate 1: 60 bpm Respiratory Rate: 16 bpm Weight: 143 lbs 07/12/2011 Blood Pressure 1: 130/62 Code: 8480-6 BMI: 22.9 Code: 78892-5 Heart Rate 1: 62 bpm Height: 5'7" Respiratory Rate: 16 bpm Weight: 146 lbs 05/11/2011 Blood Pressure 1: 120/64 Code: 8480-6 BMI: 23.6 Code: 33186-6 Heart Rate 1: 72 bpm Height: 5'7" Respiratory Rate: 16 bpm Weight: 151 lbs 04/12/2011 Blood Pressure 1: 120/62 Code: 8480-6 BMI: 24.6 Code: 39107-4 Heart Rate 1: 60 bpm Height: 5'7" Respiratory Rate: 16 bpm Weight: 157 lbs 01/11/2011 Blood Pressure 1: 126/68 Code: 8480-6 BMI: 24.7 Code: 51029-1 Heart Rate 1: 50 bpm Height: 5'7" [...] 08/05/2016 None Annual Medicare Wellness Exam Depres [place] or Hopelessness almost never 08/05/2016 None Annual [...] Findings Denies dyspnea 01/13/2014 None hypertension [facility] 10/15/2013 None hypertension Onset [...] lesion Location on the forehead 07/29/2013 right shinto skin lesion Onset and Resolution ongoing 07/29/2013 [...] down to 130lbs but since moving to [place] has gained some weight back hypertension Quality chr onic 10/11/2011 None hypertension Onset and Resolution ongoing 10/11/2011 None hypertension Blood Pressure Values "white coat" (home SBP<129 / DBP<84) 10/11/2011 None hypertension Severity mi ld 10/11/2011 None weight loss Frequency of Episodes decreasing 10/11/2011 None weight loss Triggers jareth dhaliwal in diet 10/11/2011 pt states that he [...] remembering names 01/11/2011 None memory loss 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 P ATIENT, LEVEL III Diagnosis: Otalgia, left ear[ICD10: H92.02] [facility] CPT-4: 29903 07/25/2018 ([id number]) 65238 EST. P ATIENT, LEVEL III Diagnosis: Otalgia, left ear[ICD10: H92.02] [facility] CPT-4: 51088 07/05/2018 ([id number]) 15727 EST. P ATIENT, LEVEL III Diagnosis: Otorrhagia, bilateral[ICD10: H92.23] [facility] CPT-4: 99880 06/26/2018 ([id number]) 10015 EST. P ATIENT, LEVEL III Diagnosis: Essential (primary) hypertension[ICD10: I10] Diagnosis: Slow transit constipation[ICD10: K59.01] Nay Martinez MD, C CPT-4: 73397 03/27/2018 ([id number]) 31109 EST. P ATIENT, LEVEL III Diagnosis: Slow transit constipation[ICD10: K59.01] Diagnosis: Other hypotension[ICD10: I95.89] Nay Martinez MD, [facility] CPT-4: 23639 02/14/2018 ([id number]) 03179 EST. P ATIENT, LEVEL IV Diagnosis: Essential (primary) hypertension[ICD10: I10] Diagnosis: Alzheimer's disease with early onset[ICD10: G30.0] Diagnosis: Actinic keratosis[ICD10: L57.0] Nay Martinez MD, [facility] CPT-4: 33505 11/08/2017 ([id number]) 87035 EST. P ATIENT, LEVEL IV Diagnosis: Essential (primary) hypertension[ICD10: I10] Diagnosis: Mixed hyperlipidemia[ICD10: E78.2] Diagnosis: Alzheimer's disease with early onset[ICD10: G30.0] Nay Martinez MD, C CPT-4: 92918 08/09/2017 ([id number]) 91421 EST. P ATIENT, LEVEL IV Diagnosis: Essential (primary) hypertension[ICD10: I10] Diagnosis: Alzheimer's disease with early onset[ICD10: G30.0] Diagnosis: Mixed hyperlipidemia[ICD10: E78.2] Diagnosis: Pain in left knee[ICD10: M25.562] Nay Martinez MD, [facility] CPT-4: 34219 04/11/2017 ([id number]) 03376 EST. P ATIENT, LEVEL III Diagnosis: Essential (primary) hypertension[ICD10: I10] Diagnosis: Encounter for immunization[ICD10: Z23] Diagnosis: Alzheimer's disease with early onset[ICD10: G30.0] Nay Martinez MD, C CPT-4: 99883 01/25/2017 ([id number]) 78357 EST. P ATIENT, LEVEL III Diagnosis: Otalgia, left ear[ICD10: H92.02] Nay Martinez MD, [facility] CPT-4: 33888 12/21/2016 ([id number]) 29084 EST. P ATIENT, LEVEL IV Diagnosis: Essential (primary) hypertension[ICD10: I10] Diagnosis: Alzheimer's disease with early onset[ICD10: G30.0] Diagnosis: Abnormal weight loss[ICD10: R63.4] Nay Martinez MD, [facility] CPT- 4: 46550 12/01/2016 ([id number]) 19577 EST. P ATIENT, LEVEL IV Diagnosis: Essential (primary) hypertension[ICD10: I10] Diagnosis: Mixed hyperlipidemia[ICD10: E78.2] Nay Martinez MD, [facility] CPT- 4: 76891 10/25/2016 94578 EST. PATIENT, LEVEL IV Diagnosis: Essential (primary) hypertension[ICD10: I10] Diagnosis: Alzheimer's disease with early onset[ICD10: G30.0] Diagnosis: Pain in left knee[ICD10: M25.562] Diagnosis: Cyst of kidney, acquired[ICD10: N28.1] Nay Martinez MD, [facility] CPT-4: 48360 07/26/2016 ([id number]) 69129 EST. P ATIENT, LEVEL IV Diagnosis: Essential (primary) hypertension[ICD10: I10] Diagnosis: Alzheimer's disease with early onset[ICD10: G30.0] Rosa Martinez MD, [facility] CPT-4: 36357 04/26/2016 ([id number]) 93052 EST. P ATIENT, LEVEL IV Diagnosis: Essential (primary) hypertension[ICD10: I10] Diagnosis: Alzheimer's disease with early onset[ICD10: G30.0] Diagnosis: VACCIN FOR INFLUENZA[ICD10: Z23] Nay Martinez MD, [facility] CPT-4: 38721 01/27/2016 ([id number]) 91523 EST. P ATIENT, LEVEL IV Diagnosis: Essential (primary) hypertension[ICD10: I10] Diagnosis: Alzheimer's disease with early onset[ICD10: G30.0] Nay Martinez MD[facility] LL C CPT-4: 45248 10/27/2015 ([id number]) 80681 EST. P ATIENT, LEVEL IV Diagnosis: Essential (primary) hypertension[ICD10: I10] Diagnosis: Alzheimer's disease with early onset[ICD10: G30.0] Nay Martinez MD, C CPT-4: 26370 06/30/2015 ([id number]) 20631 EST. P ATIENT, LEVEL IV Diagnosis: Essential (primary) hypertension[ICD10: I10] Diagnosis: Alzheimer's disease with early onset[ICD10: G30.0] Nay Martinez MD, C CPT-4: 00694 03/31/2015 69651 EST. PATIENT, LEVEL III Diagnosis: Low back pain[ICD10: M54.5] Fern Martinez MD, [facility] CPT-4: 22169 03/17/2015 ([id number]) 96390 EST. P ATIENT, LEVEL IV Diagnosis: ESSENTIAL HYPERTENSION[ICD9: 401.9] Diagnosis: Encounter for long-term (current) use of anticoagulants[ICD9: V58.61] Diagnosis: Skin change[ICD9: 782.9] Diagnosis: Change in mole[ICD9: 216.9] Diagnosis: VACCIN FOR INFLUENZA[ICD9: V04.81] Nay Martinez MD, [facility] CPT- 4: 05342 01/20/2015 ([id number]) 55756 EST. P ATIENT, LEVEL IV Diagnosis: ESSENTIAL HYPERTENSION[ICD9: 401.9] Diagnosis: OSTEOARTHROSIS-MULT SITE[ICD9: 715.80] Diagnosis: Knee pain[ICD9: 719.46] Diagnosis: ENCNTR LONG-ANTICOAG USE[ICD9: V58.61] [facility] CPT-4: 58785 12/15/2014 ([id number]) 56540 EST. P ATIENT, LEVEL IV Diagnosis: ESSENTIAL HYPERTENSION[ICD9: 401.9] Diagnosis: OSTEOARTHROSIS-MULT SITE[ICD9: 715.80] Diagnosis: Knee pain[ICD9: 719.46] [facility] CPT-4: 36497 09/30/2014 ([id number]) 99318 EST. P ATIENT, LEVEL IV Diagnosis: Skin cancer[ICD9: 173.90] Diagnosis: ESSENTIAL HYPERTENSION[ICD9: 401.9] Diagnosis: ALZHEIMER'S DISEASE[ICD9: 331.0] Diagnosis: Knee pain[ICD9: 719.46] Nay Martinez MD, [facility] CPT-4: 27002 07/01/2014 ([id number]) 39870 EST. P ATIENT, LEVEL IV Diagnosis: ESSENTIAL HYPERTENSION[ICD9: 401.9] Diagnosis: Dysuria[ICD9: 788.1] Diagnosis: Knee pain, bilateral[ICD9: 719.46] Diagnosis: Osteoarthritis[ICD9: 715.90] Diagnosis: Dementia[ICD9: 294.8] Nay Martinez MD, [facility] CPT-4: 52060 04/01/2014 ([id number]) 12953 EST. P ATIENT, LEVEL IV Diagnosis: ESSENTIAL HYPERTENSION[ICD9: 401.9] Diagnosis: VACCIN FOR INFLUENZA[ICD10: Z23] Diagnosis: HYPERLIPIDEMIA[ICD9: 272.4] Diagnosis: ALZHEIMER'S DISEASE[ICD9: 331.0] Nay Martinez MD, [facility] CPT-4: 73059 01/13/2014 ([id number]) 91838 EST. P ATIENT, LEVEL IV Diagnosis: Dementia[ICD9: 294.8] Diagnosis: Alzheimer's dementia[ICD9: 331.0] Diagnosis: OSTEOARTHROSIS-MULT SITE[ICD9: 715.80] Diagnosis: ESSENTIAL HYPERTENSION[ICD9: 401.9] Nay Martinez MD, [facility] CPT- 4: 23479 10/15/2013 ([id number]) 07543 EST. P ATIENT, LEVEL III Diagnosis: Knee pain, acute[ICD9: 719.46] Diagnosis: Osteoarthritis[ICD9: 715.90] Diagnosis: Gait instability[ICD9: 781.2] Nay Martinez MD, [facility] CPT-4: 04821 09/11/2013 ([id number]) 84258 EST. P ATIENT, LEVEL III Diagnosis: CELLULITIS OF FACE[ICD9: 682.0] Diagnosis: Esophageal reflux[ICD9: 530.81] [facility] CPT- 4: 02421 08/22/2013 30845 EST. PATIENT, LEVEL II Diagnosis: CELLULITIS OF FACE[ICD9: 682.0] Nay Martinez MD, [facility] CPT-4: 92463 08/08/2013 ([id number]) 92810 EST. P ATIENT, LEVEL III Diagnosis: Cellulitis of shinto[ICD9: 682.0] [facility] CPT-4: 14003 07/29/2013 ([id number]) 26720 EST. P ATIENT, LEVEL IV Diagnosis: ESSENTIAL HYPERTENSION[SNOMED: 52602603] Diagnosis: ALZHEIMER'S DISEASE[ICD9: 331.0] Diagnosis: INTEGUMENT TISS SYMP NEC[ICD9: 782.9] Diagnosis: JOINT PAIN-L/LEG[ICD9: 719.46] [facility] CPT-4: 57382 06/25/2013 ([id number]) 26134 EST. P ATIENT, LEVEL IV Diagnosis: ESSENTIAL HYPERTENSION[SNOMED: 85085819] Diagnosis: ACTINIC KERATOSIS[ICD9: 702.0] Diagnosis: Skin cancer[ICD9: 173.90] Diagnosis: COUGH[ICD9: 786.2] Diagnosis: ACUTE BRONCHITIS[ICD9: 466.0] [facility] CPT-4: 01537 03/26/2013 14666 EST. PATIENT, LEVEL IV Diagnosis: ESSENTIAL HYPERTENSION[SNOMED: 08887725] Diagnosis: ALZHEIMER'S DISEASE[ICD9: 331.0] Diagnosis: JOINT PAIN-L/LEG[ICD9: 719.46] Diagnosis: MUSCSKEL SYMPT LIMB NEC[ICD9: 729.89] [facility] CPT-4: 36465 11/20/2012 ([id number]) 68215 EST. P ATIENT, LEVEL IV Diagnosis: ESSENTIAL HYPERTENSION[SNOMED: 88532061] Diagnosis: ALZHEIMER'S DISEASE[ICD9: 331.0] Diagnosis: ENCNTR LONG-ANTICOAG USE[ICD9: V58.61] Diagnosis: Skin change[ICD9: 782.9] [facility]ay [facility]rtinez [facility] CPT-4: 94910 08/21/2012 ([id number]) 00233 EST. P ATIENT, LEVEL III Diagnosis: SUBDURAL HEMORRHAGE[ICD9: 432.1] Nay Martinez MD, [facility] CPT-4: 80544 06/28/2012 ([id number]) 62778 EST. P ATIENT, LEVEL IV Diagnosis: ESSENTIAL HYPERTENSION[SNOMED: 28977894] Diagnosis: Subdural hematoma[ICD9: 432.1] Diagnosis: Encounter for long-term (current) use of anticoagulants[ICD9: V58.61] Nay Martinez MD, [facility] CPT-4: 30621 05/21/2012 ([id number]) Patient adm itted to the hospital from clinic (NO CHARGE) Diagnosis: Lower extremity weakness[ICD9: 729.89] Diagnosis: FALL AGAINST OBJECT[ICD9: E888.1] Diagnosis: Gait instability[ICD9: 781.2] Nay Martinez MD, [facility] CPT-4: 11037P 04/26/2012 ([id number]) 72807 EST. P ATIENT, LEVEL IV Diagnosis: ESSENTIAL HYPERTENSION[SNOMED: 74010585] Diagnosis: ALZHEIMER'S DISEASE[ICD9: 331.0] Diagnosis: HYPERLIPIDEMIA[ICD9: 272.4] Nay Martinez MD, [facility] CPT-4: 09755 02/14/2012 ([id number]) 24280 EST. P ATIENT, LEVEL IV Diagnosis: ALZHEIMER'S DISEASE[ICD9: 331.0] Diagnosis: Abnormal loss of weight[ICD9: 783.21] Diagnosis: Knee pain, bilateral[ICD9: 719.46] Diagnosis: ESSENTIAL HYPERTENSION[SNOMED: 62813011] Nay Martinez MD, [facility] CPT-4: 44582 10/11/2011 ([id number]) 79291 EST. P ATIENT, LEVEL IV Diagnosis: ESSENTIAL HYPERTENSION[SNOMED: 03731504] Diagnosis: JOINT PAIN-L/LEG[ICD9: 719.46] Diagnosis: Thrush[ICD9: 112.0] Diagnosis: Abdominal pain[ICD9: 789.00] Nay Martinez MD, [facility] CPT-4: 20727 07/12/2011 ([id number]) 14494 EST. P ATIENT, LEVEL III Diagnosis: Knee pain[ICD9: 719.46] Diagnosis: OSTEOARTHROSIS[facility][ICD9: 715.80] Nay Martinez MD, [facility] CPT-4: 62033 05/11/2011 ([id number]) 88729 EST. P ATIENT, LEVEL IV Diagnosis: Alzheimer's dementia[ICD9: 331.0] Diagnosis: ESSENTIAL HYPERTENSION[SNOMED: 90098648] Nay Martinez MD, [facility] CPT-4: 07322 04/12/2011 63400 EST. PATIENT, LEVEL IV Diagnosis: ESSENTIAL HYPERTENSION[SNOMED: 99070239] Diagnosis: HYPERLIPIDEMIA[ICD9: 272.4] Diagnosis: VACCIN FOR INFLUENZA[ICD9: V04.81] Diagnosis: Dementia[ICD9: 294.8] Nay Martinez MD, [facility] CPT-4: 47474 01/11/2011 Plan of Care Planned Activity Notes C odes Status Date Appointment: Rosa Aguilar WPtel: [facility]2 [phone] [facility] - Annual Wellness Visit 08/21/2018 Visit Plan: Blood in ears - removed the dried blood shard that is residual in left ear - no other treatment changes needed. 07/25/2018 Appointment: Nay Martinez WPtel: [facility]5 [facility] (15 min) Moderate 07/25/2018 Patient Education: Patient [...] 2 wks 07/05/2018 Appointment: Nay Martinez WPtel: [facility] [place] (15 min) Moderate 07/05/2018 Patient Education: Patient Medication Summary Completed 07/05/2018 Visit Plan: Nasal congestion - rx f or flonase to the [facility] - rx was called to . Blood in ears - due to pt using qtips aggressively - recommended pt to use mineral oil in ears nightly x 10 days - return to clinic in 10 days for my evaluation to see if there are any residual lesions in his ears once the dried blood is out of the ear canals. 06/26/2018 Appointment: Nay Martinez [facility]el[phone] (15 min) Moderate 06/26/2018 Patient Education: Patient [...] at home. 03/27/2018 Appointment: Nay Martinez WPtel: [facility] [place] (15 min) Moderate 03/27/2018 Patient Education: Patient Medication Summary Completed 03/27/2018 Appointment: Nay Martinez [facility]Ptel: [phone] [place] (15 min) Moderate 03/07/2018 Appointment: Nay Martinez WPtel: [facility] [place] (15 min) Moderate 02/21/2018 Visit Plan: [...] Monday morning. 02/14/2018 Appointment: Nay Martinez WPtel: [phone] [facility] [place] (15 min) Moderate 02/14/2018 Patient Education: [...] current medications. 11/08/2017 Appointment: Nay Martinez [facility]: [phone] (15 min) Moderate 11/08/2017 Patient Education: Patient [...] surrogate. 08/11/2017 [phone] [facility] - Annual Wellness Visit 08/11/2017 Patient [...] intake. 08/09/2017 Appointment: Nay Martinez WPtel: [phone] (15 min) Moderate 08/09/2017 Patient Education: Patient [...] to medications. 04/11/2017 Appointment: Nay Martinez WPtel: [phone] (15 min) Moderate 04/11/2017 Patient Education: Patient [...] memory loss. 01/25/2017 Appointment: Nay Martinez WPtel: [phone] [facility] (15 min) Moderate 01/25/2017 Patient Education: Patient Medication Summary Completed 01/25/2017 Appointment: Nay Martinez WPtel: [phone] [facility] (15 min) Moderate 01/24/2017 Visit Plan: Dried bloody debris in left ear - removed with alligator forceps, ear currette - pt to use mineral oil in the ear. 12/21/2016 Appointment: Nay Martinez WPtel: [phone] [facility] (15 min) Moderate 12/21/2016 Patient Education: Patient [...] fat intake. 12/01/2016 Appointment: Nay Martinez WPtel: [phone] [facility] (15 min) Moderate 12/01/2016 Patient Education: Patient [...] medications. 10/25/2016 Appointment: Nay Martinez [facility]el: [phone] (15 min) Moderate 10/25/2016 Patient Education: Patient [...] home. 08/05/2016 Appointment: [phone] [place] [address] - Annual Wellness Visit 08/05/2016 Patient Education: [...] for tomorrow. 07/26/2016 Appointment: Nay Martinez WPtel: [facility] (15 min) Moderate 07/26/2016 Patient Education: Patient [...] of treatment. 04/26/2016 Appointment: Rosa Aguilar WPtel: [phone] [phone] (15 min) Moderate 04/26/2016 Patient Education: Patient [...] of treatment. 01/27/2016 Appointment: Nay Martinez WPtel: [phone] [facility] (15 min) Moderate 01/27/2016 Patient Education: Patient [...] of treatment. 10/27/2015 Appointment: Nay Martinez [facility]Ptel: [facility] [place] (15 min) Moderate 10/27/2015 Patient Education: [...] treatment. 06/30/2015 Appointment: Nay Martinez WPtel: [phone] [facility] [place] (15 min) Moderate 06/30/2015 Appointment: Nay Martinez WPtel: [phone] [facility] [place] (15 min) Moderate 06/30/2015 Patient Education: [...] of treatment. 03/31/2015 Appointment: Nay Martinez WPtel: [phone] [place] [...] surgically removed. 01/20/2015 Appointment: Nay Martinez WPtel: [phone] [place] (15 min) Moderate 01/20/2015 Patient Education: Patient Medication Summary Completed 01/20/2015 Patient Education: Hypertension Completed 01/20/2015 Care Plan: Referral Order SNOMED-CT : [id number] Ordered 01/20/2015 Appointment: Nay Martinez WPtel: [facility] [place] (15 min) Moderate 12/18/2014 Visit Plan: Hypertension [...] between 2.0 and 3.5. 12/15/2014 Appointment: Nay Mratinez WPtel: [phone] (15 min) Moderate 12/15/2014 Patient Education: Patient [...] to have his knee operated on at [facility], I have placed a phone call to Dr. Ballesteros - waiting on a call back 09/30/2014 Appointment: Nay Martinez WPtel: [phone] Follow up 09/30/2014 Patient Education: Patient Medication [...] for knee. 07/01/2014 Appointment: Nay Martinez WPtel: [phone] Follow up 07/01/2014 Patient Education: Patient Medication Summary Completed 07/01/2014 Patient Education: Hypertension Completed 07/01/2014 Care Plan: Referral Order SNOMED-CT : [id number] Ordered 07/01/2014 Visit Plan: Hypertension - well [...] treatment. 04/01/2014 Appointment: Nay Martinez [facility]Ptel: [phone] Follow up 04/01/2014 Patient Education: Patient Medication Summary Completed 04/01/2014 Visit Plan: Hypertension - alexandra almonte julioed - continue with current medications, continue [...] treatment. 01/13/2014 Appointment: Nay Martinez WPtel: [phone] Follow up 01/13/2014 Patient Education: Patient Medication Summary Completed 01/13/2014 Patient Education: Hypertension Completed 01/13/2014 Care Plan: COMPLETE CBC AUTOMATED LOINC : 09331-0 Ordered 01/13/2014 Visit Plan: Knee pain has improved - pt needs to continue with use of the voltaren gel, no change in treatment at this time, he is not interested in seeing an orthopedic surgeon until his knee pain is not controlled with the voltaren gel. 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 10/15/2013 Appointment: Nay Martinez WPtel: [address] [place], [place] [phone] Follow up 10/15/2013 Patient Education: Patient Medication Summary Completed 10/15/2013 Patient Education: Hypertension Completed 10/15/2013 Appointment: Nay Martinez WPtel: [address] [place], [place] [phone] Follow up 10/02/2013 Visit Plan: Lower leg pain - rx for voltaren gel to be used on right knee four times daily to alleviate pain in knee. Pt to use walker - RX for rolator walker. 09/11/2013 Appointment: Nay Martinez WPtel: [address] [place], [place] [phone] Other 09/11/2013 Patient Education: Patient Medication Summary [...] current treatement. 08/22/2013 Appointment: Rosa Aguilar WPtel: [phone] Follow up 08/22/2013 Patient Education: Patient Medication Summary Completed 08/22/2013 Visit Plan: Aoaefulpahl-snktcruy-pj ntinue treatment-return in 2 weeks for follow up 08/08/2013 Appointment: [facility]el[phone] [place] Follow up 08/08/2013 Patient Education: [...] current plan of treatment. Skin lesion on shinto - pt to use flurouracil on lesions on shinto. OA of knees - pt to try voltaren gel. 06/25/2013 Appointment: Nay Martinez WPtel: [phone] [place] Follow up 06/25/2013 Patient Education: Patient [...] acute conerns. 03/26/2013 Appointment: Nay Martinez WPtel: [phone] [place] Follow up 03/26/2013 Patient Education: Patient Medication Summary Completed 03/26/2013 Patient Education: Hypertension Completed 03/26/2013 Appointment: [facility] Aguilar [facility]Ptel[phone] Nurse Visit 01/14/2013 Patient Education: Patient Medication Summary Completed 01/14/2013 Visit Plan: Wound Instructions - Pt was instruced to keep the wound clean, wash with antibacterial soap, use triple antibiotic ointment, call if redness, pustular drainage, or any other acute conerns. 12/25/2012 Appointment: [facility] Aguilar [facility]Ptel[phone] Surgical Procedure 12/25/2012 Patient Education: Patient Medication [...] weak. 11/20/2012 Appointment: Nay Martinez WPtel: [phone] Follow up 11/20/2012 Patient Education: Patient Medication [...] every days. 08/21/2012 Appointment: Nay Martinez WPtel: [address] [place], [place] [phone] Follow up 08/21/2012 Patient Education: Hypertension Completed 08/21/2012 Patient Education: Patient Medication Summary Completed 08/21/2012 Visit Plan: Subdural hematoma-recen t fall-decreased in size with tiny acute component-plan to repeat CT in 2 weeks Low back wofw-xplaokjxwbq-IW joint Injection today in the office - Pt was given post - injection instructions. The pt has been advised to use antiinflammatories post injection today, ice to the injected site, call if redness, warmth, or increased pain occurs at the site of injection. 06/28/2012 Appointment: Rosa Aguilar WPtel: [address] [place], [place] [phone] [place] [address] Other 06/28/2012 Patient Education: Patient Medication Summary [...] this week. 05/21/2012 Appointment: Nay Martinez WPtel: [address] [place], [place] [phone] [facility] follow up 05/21/2012 Patient Education: Patient Medication Summary Completed 05/21/2012 Patient Education: Hypertension Completed 05/21/2012 Appointment: Nay Martinez WPtel: [address] [place], [place] [phone] Follow up 05/15/2012 Visit Plan: Fall-sudden onset of ri ght lower extremity weakness-Dr Martinez in to evaluate patient-plan to admit for observation and further work up which includes a STAT CT of the head and labs. Patient and verbalize understanding. 04/26/2012 Appointment: Nay Martinez WPtel: [phone] balance problem, fall 1 month ago Other [...] treatment. 02/14/2012 Appointment: Nay Martinez WPtel: [phone] Established Patient Preventative visit 02/14/2012 Patient Education: [...] Weight loss - discussed the need for [place] to not loose more weight. He reports that he has actually gained weight in the past few weeks since moving to . Knee pain - has improved with flector patches, no change in current treatment. HTN - controlled - no change in medications. I have encouraged Omid to check his blood pressures oc casionally at home and bring in his list at his next office visit. 10/11/2011 Appointment: Nay Martinez WPtel: [phone] [facility] Other 10/11/2011 Patient Education: Patient Medication Summary [...] OF BLOOD. 07/12/2011 Appointment: Nay Martinez WPtel: [address] [place], [place] [id number] Other 07/12/2011 Patient Education: Patient Medication Summary Completed 07/12/2011 Patient Education: High Blood Pressure: Essential Hypertension Completed 07/12/2011 Visit Plan: Knee pain- uncontrolled - but improving, recommend watchful waiting and to use FLECTOR PATCH, 1/4 of a patch and change twice daily.. Call if the pain worsens. 05/11/2011 Appointment: Nay Martinez WPtel: [phone] [facility] Other 05/11/2011 Patient Education: Patient Medication Summary [...] in medications. 04/12/2011 Appointment: Nay Martinez WPtel: [facility] Other 04/12/2011 Patient Education: Patient Medication Summary [...] this time. 01/11/2011 Appointment: Nay Martinez WPtel: [address] [place], [place] [phone] Other 01/11/2011 Patient Education: Patient Medication Summary Completed 01/11/2011 Referral: Cris Egan Referral Relationship Referral: Dayron Ballesteros Referral Appointment Requested Referral: Kings Valles WPtel: [id number] [id number] Referral Relationship Referral: Carl Yu Referral Relationship Instructions Comment . Subdural hematoma- recent fall-decreased in size with tiny acute component-plan to repeat CT in 2 weeks Low back vwet-mtrruzylttm-LL joint Injection today in the office - Pt was given post - injection instructions. The pt has been advised to use antiinflammatories post injection today, ice to the injected site, call if redness, warmth, or increased pain occurs at the site of injection. . Celllulitis-[facility] ed-continue treatment-return in 2 weeks for follow up . Hypertension - wel l controlled - [...] - rx for flonase to [facility] - rx was called to . Blood in ears - due to pt [...] Continue with current plan of treatment. . Lower leg pain - r x [...] to use mineral oil in the ear. PREVAR 23 . Hypertension - well controlled [...] gel. Dementia - symptoms stable, but the [employer] is stopping production of the [...] gel. 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 . Hypertension - [...] check INR on monday of this week. stop using the effud ex on the [...] up on cyst - for tomorrow. . Blood in ears - re moved the dried blood shard that is residual in left ear - no other treatment changes needed. joint juice, glucosa mine - at [facility] ask about welnesse liquid Glucosamine and chondroitin. [...] -needs to be seen by Dr. Gigi Stewartt will need this lesion surgically removed. joint juice, glucosa mine - at [facility] ask about welnesse liquid Glucosamine and chondroitin. [...] current plan of treatment. Skin lesion on shinto - pt to use flurouracil on lesions on shinto. OA of knees - pt to try [...] to have his knee operated on at [facility], I have placed a phone call [...] have helped to stabilize his memory loss. . Constipation - not optimally treated - [...] Weight loss - discussed the need for [place] to not loose more weight. He reports that he has actually gained weight in the past few weeks since moving to . Knee pain - has improved with flector [...]
--- OUTSIDE RECORDS SUMMARY | 2019-07-11 12:46 | XMS REPORT | CCD ---
Author Author Omid Martinez Organization Nay Martinez MD, [facility] Address [address] [place] [address] Phone Care Team Providers Care Customer Assistance Representative Name Role Phone Nay Martinez PP Unavailable CCM Unavailable Summary Purpose Interface Exchange Insurance Providers Payer name Policy type / Coverage type Covered alliance party ID Effective Begin Date Effective End Date WPS Medicare Part B Medicare Part B [id number] Unknown [facility] icare Part B [id number] Un known Family history Mother Diagnosis Age [...] August 2011 to assisted living facility [facility]. 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 04/11/[address]: 459081635 Nonsmoker 04/11/2011 Has the patient ever used [...] ICD-9: 530.81 Active 08/22/2013 Unknown Cellulitis of denominational ICD-9: 682.0 Active 07/29/2013 Unknown ACUTE BRONCHITIS [...] reflux ICD-9: 530.81 08/22/2013 Active Cellulitis of denominational ICD-9: 682.0 07/29/2013 Active ACUTE BRONCHITIS ICD-9: [...] Reli ef 50 mcg/actuation nasal spray,suspension RxNorm: 1045762 1 [place] NASAL BID 06/26/2018 07/25/2018 Inactive Namenda 10 mg tablet RxNorm: 100660 1 Tablet(s) PO BID 02/07/2018 09/04/2018 Active omeprazole 20 mg cap mino,delayed release RxNorm: 558163 1 Capsule(s) PO BID 02/07/2018 09/04/2018 Ac tive omeprazole 20 mg cap mino,delayed release RxNorm: 032030 1 Capsule(s) PO BID 01/25/2018 02/06/2018 In active ropinirole 1 mg tablet RxNorm: 039071 1 Tablet(s) PO daily 01/17/2018 07/10/2019 Active Zyrtec 10 mg tablet RxNorm: 6337446 1 Tablet(s) PO daily 11/08/2017 06/05/2018 Inactive atorvastatin 20 mg t ablet RxNorm: 270117 1 Tablet(s) PO daily 08/09/2017 03/06/2018 Inactive Namenda 10 mg tablet RxNorm: 356086 1 Tablet(s) PO BID 07/24/2017 10/21/2017 Inactive Insurance denied Namenda XR 28mg Namenda 10 mg tablet RxNorm: 713888 1 Tablet(s) PO BID 07/24/2017 07/23/2017 Inactive Insurance denied Namenda XR 28mg Cerefolin NAC 600 mg -2 mg-6 mg tablet RxNorm: TAKE ONE CAPLET BY MOUTH ON E TIME DAILY 07/11/2017 07/05/2018 Inactive Aricept 10 mg tablet RxNorm: 116430 1 Tablet(s) PO daily 06/01/2017 05/26/2018 Inactive Aricept 10 mg tablet RxNorm: 282293 1 Tablet(s) PO daily 06/01/2017 05/31/2017 Inactive Cerefolin NAC 600 mg -2 mg-6 mg tablet RxNorm: TAKE ONE TABLET BY MOUTH ON E TIME DAILY 07/06/2016 06/30/2017 Inactive fluorouracil 5 % top ical cream RxNorm: 728794 1 Application TOP luz ly use daily x 1 week, then stop use, let tissue heal x1wk, if still dry patchy, then restart the medication x 1 week 01/29/2016 02/07/2016 Inactive omeprazole 20 mg cap mino,delayed release RxNorm: 155317 1 Capsule(s) PO BID 01/20/2015 06/18/2015 In active Bactroban 2 % topica l cream RxNorm: 003849 1 Application TOP BID as needed 12/18/2014 03/30/2015 In active Cerefolin NAC 600 mg -2 mg-6 mg tablet RxNorm: 1 Tablet(s) PO daily 07/01/2014 06/25/2015 Inactive [SAVINGS FOR NON-COVERED DRUGS -- BIN:00 [id number], PCN: [id number], Group: XXXXX, ID# [id number], Questions: . THIS IS NOT INSURANCE.] Kenalog 40 mg/mL tess pension for injection RxNorm: 2678483 Milliliter(s) Inj 04/01/2014 04/01/2014 In active Namenda XR 7 mg-14 m g-21 mg-28 mg capsule,sprinkle,ER 24hr,dose pack RxNorm: 985692 1 Capsule(s) PO daily 10/15/2013 11/13/2013 Inactive Namenda XR 28 mg cap mino sprinkle,ER 24hr RxNorm: 776006 1 Capsule(s) PO daily 10/15/2013 07/23/2017 In active Bactrim DS 800 mg-16 0 mg tablet RxNorm: 048350 1/2 Tablet(s) PO dale y 10/15/2013 03/30/2015 In active Voltaren 1 % topical gel RxNorm: 831093 4 Gram(s) TOP QID 09/11/2013 01/08/2014 Inactive dispense 5 tubes Bactroban 2 % topica l cream RxNorm: 362891 1 Application TOP BID 07/29/2013 08/04/2013 Inactive ciprofloxacin 500 mg tablet RxNorm: 967257 1 Tablet(s) PO BID 07/29/2013 08/04/2013 Inactive fluorouracil 5 % top ical cream RxNorm: 873683 1 Application TOP luz ly use daily x 1 week, then stop use, let tissue heal x1wk, if still dry patchy, then restart the medication x 1 week 06/25/2013 07/04/2013 Inactive levofloxacin 500 mg tablet RxNorm: 470624 1 Tablet(s) PO daily 03/26/2013 03/30/2013 Inactive Cerefolin NAC 600 mg -2 mg-6 mg tablet RxNorm: 1 Tablet(s) PO daily 11/05/2012 10/30/2013 Inactive Kenalog 40 mg/mL Tess p for Injection RxNorm: 9181537 1 Milliliter(s) Inj 06/29/2012 06/29/2012 In active Exelon 9.5 mg/24 ricki r Transderm 24 hr Patch RxNorm: 124522 Patch 24 hr TD APPLY 1 PATCH DAILY DIRECTED 04/25/2012 08/20/2012 Inactive omeprazole 20 mg cap mino,delayed release RxNorm: 921589 1 Capsule(s) PO daily 04/09/2012 04/03/2013 In active omeprazole 20 mg cap mino,delayed release RxNorm: 393398 Capsule(s) PO TAKE 1 CAPSULE BY MOUTH EVERY DAY 04/09/2012 01/19/2015 Inactive warfarin 4 mg tablet RxNorm: 695188 1 Tablet(s) PO 11/28/2011 11/21/2012 Inactive TAKE 1 TABLET BY MOUTH DAILY Cerefolin NAC 600 mg -2 mg-6 mg tablet RxNorm: 1 Tablet(s) PO daily 11/28/2011 11/04/2012 Inactive warfarin 4 mg tablet RxNorm: 298177 Tablet(s) PO 08/07/2011 11/27/2011 Inactive TAKE 1 TABLET BY MOUTH DAILY Flector 1.3 % [place]hesi ve Patch RxNorm: 924667 1 Application TOP BID 07/12/2011 02/06/2012 Inactive levofloxacin 500 mg Tab RxNorm: 353753 1 Tablet(s) PO daily 07/12/2011 07/16/2011 Inactive nystatin 100,000 uni t/mL Oral Susp RxNorm: 359374 3 Milliliter(s) BUCC TID 07/12/2011 07/21/2011 In active lisinopril 20 mg Tab RxNorm: 543541 1 Tablet(s) PO daily 04/12/2011 04/05/2012 Inactive TAKE ONE TABLET BY MOUTH DAILY;Patient requests 90 day supply omeprazole 20 mg cap mino,delayed release RxNorm: 721315 1 Capsule(s) PO daily 04/12/2011 04/05/2012 In active Namenda 10 mg Tab RxNorm: 066349 1 Tablet(s) PO BID 04/12/2011 04/05/2012 Inactive metoprolol succinate ER 50 mg 24 hr Tab RxNorm: 793691 1 Tablet(s) PO daily 04/12/2011 04/05/2012 In active ropinirole 1 mg Tab RxNorm: 812874 1 Tablet(s) PO daily 04/12/2011 04/05/2012 Inactive TAKE 1 TABLET BY MOUTH EVERY NIGHT AT BE DTIME;Patient requests 90 day supply Bactrim DS 800 mg-16 0 mg Tab RxNorm: 656766 1/2 Tablet(s) PO daily 04/12/2011 04/05/2012 Inactive Exelon 9.5 mg/24 ricki r Transderm 24 hr Patch RxNorm: 623204 1 Patch TD daily 04/12/2011 04/05/2012 In active melatonin 3 mg Tab RxNorm: 720078 1 Tablet(s) PO QHS 04/11/2011 No Stop Date Active Fish Oil 900 mg-1,40 0 mg Cap, Delayed Release RxNorm: 1 Capsule(s) PO BID 04/11/2011 10/27/2015 In active Tylenol Arthritis 65 0 mg Tab RxNorm: 0171277 2 Tablet(s) PO QAM 04/11/2011 10/27/2015 Inactive Bactrim DS 800 mg-16 0 mg Tab RxNorm: 293169 1/2 Tablet(s) PO daily 04/11/2011 04/11/2011 Inactive lisinopril 20 mg Tab RxNorm: 638798 Tablet(s) PO 04/07/2011 04/11/2011 Inactive TAKE ONE TABLET BY MOUTH DAILY;Patient requests 90 day supply ropinirole 1 mg Tab RxNorm: 835831 Tablet(s) PO 04/07/2011 04/11/2011 Inactive TAKE 1 TABLET BY MOUTH EVERY NIGHT AT BEDTIME;Patient requests 90 day supply lisinopril 20 mg Tab RxNorm: 909535 1 Tablet(s) PO daily 04/06/2011 04/06/2011 Inactive ropinirole 1 mg Tab RxNorm: 800806 1 Tablet(s) PO daily 04/06/2011 04/06/2011 Inactive Influenza Virus Vacc ine 0.5 mL RxNorm: IM 01/11/2011 01/11/2011 Inactive Osteo Bi-Flex Triple Strength RxNorm: 2 PO daily No S tart Date Active Bactrim DS 800 mg-16 0 mg tablet RxNorm: 628325 1/2 Tablet(s) PO dale y No Start Date Active isosorbide mononitra te ER 30 mg tablet,extended release 24 hr RxNorm: 098287 1 Tablet(s) PO daily No Start Date Active Vitamin B-12 5,000 m cg/mL sublingual drops RxNorm: 7648882 1 Milliliter(s) SL d aily No Start Date Active Tylenol Extra Streng th 500 mg tablet RxNorm: 911062 2 Tablet(s) PO BID No Start Date Active aspirin 81 mg Tab, D elayed Release RxNorm: 534561 1 Tablet(s) PO daily No Start Date Active warfarin 4 mg tablet RxNorm: 935189 1 Tablet(s) PO daily No Start Date Active Centrum Silver Oral RxNorm: Oral No Start Date Active lisinopril 20 mg tablet RxNorm: 254291 1 Tablet(s) PO daily No Start Date Active Fish Oil 300 mg-1,00 0 mg capsule RxNorm: 126108 1 Capsule(s) PO daily No Start Date Active Calcium 500 + D (D3) Oral RxNorm: Oral No Start D ate Active Exelon 13.3 mg/24 ho ur Transderm 24 hr Patch RxNorm: 0437632 TD No Start Date Active metoprolol succinate ER 50 mg tablet,extended release 24 hr RxNorm: 949669 1 Tablet(s) PO daily No Start Date Active Cerefolin NAC 600 mg -2 mg-6 mg tablet RxNorm: 1 Tablet(s) PO daily No Start Date 11/27/2011 Inactive Lipitor 40 mg tablet RxNorm: 171018 1 Tablet(s) PO daily ordered by dr broussard No Start Date 08/08/2017 Inactive lisinopril 20 mg Tab RxNorm: 553710 1 Tablet(s) PO daily No Start Date 04/05/2011 Inactive hydrocodone-acetamin ophen 5 mg-325 mg tablet RxNorm: 8686755 1 Tablet(s) PO BID No Start Date 01/19/2015 Inactive omeprazole 20 mg Cap , Delayed Release RxNorm: 374607 1 Capsule(s) PO daily No Start Date 04/11/2011 Inactive metoprolol succinate ER 50 mg 24 hr Tab RxNorm: 637727 1 Tablet(s) PO daily No Start Date 04/11/2011 Inactive Exelon 9.5 mg/24 ricki r Transderm 24 hr Patch RxNorm: 033279 1 Patch TD daily No Start Date 04/11/2011 Inactive warfarin 4 mg Tab RxNorm: 916335 1 Tablet(s) PO daily No Start Date 08/06/2011 Inactive multivitamin Oral RxNorm: Oral No Start Date 07/26/2016 Inactive melatonin 3 mg Tab RxNorm: 928808 Oral No Start Date 04/10/2011 Inactive ropinirole 1 mg tablet RxNorm: 308941 1 Tablet(s) PO daily No Start Date 01/16/2018 Inactive iron 134 mg (27 mg i iron) Tab RxNorm: 399188 1 Tablet(s) PO daily No Start Date 10/26/2015 Inactive Fish Oil 900 mg-1,40 0 mg Cap, Delayed Release RxNorm: 1 Capsule(s) PO daily No Start Date 04/10/2011 Inactive Bactrim DS 800 mg-16 0 mg Tab RxNorm: 674995 Oral No S tart Date 04/10/2011 Inactive metoprolol tartrate 50 mg Tab RxNorm: 311469 1 Tablet(s) PO daily No Start Date 04/10/2011 Inactive Tylenol Arthritis 65 0 mg Tab RxNorm: 1207653 Oral No Start Date 04/10/2011 Inactive Namenda 10 mg Tab RxNorm: 034590 1 Tablet(s) PO BID No Start Date 04/11/2011 Inactive ropinirole 1 mg Tab RxNorm: 236686 1 Tablet(s) PO daily No Start Date 04/05/2011 Inactive Medication Administered Medication Codes Instruc tions Start Date Status Kenalog 40 mg/mL suspension for injection RxNorm: 9801556 Milliliter 04/01/2014 No longer Active Kenalog 40 mg/mL Susp for Injection RxNorm: 1220966 1Milliliter 06/29/2012 N o longer Active Influenza [...] Item Item Code Result Date Comp Metabolic Rgg315 NA 143 mEq/L 08/08/2017 Comp Metabolic Iak278 K 5.3 mEq/L 08/08/2017 Comp Metabolic Fgk122 CL 112 mEq/L 08/08/2017 Comp Metabolic Rud227 CO2 27.0 mEq/L 08/08/2017 Comp Metabolic Lva425 AN ION GAP 9 08/08/2017 Comp Metabolic Kqh290 GL UCOSE 88 mg/dL 08/08/2017 Comp Metabolic Woe158 Cr eat 1.1 mg/dL 08/08/2017 Comp Metabolic Irq517 eG FR 71 ml/min/1.73m2 08/08 Comp Metabolic Lmd305 BUN 26 mg/dL 08/08/2017 Comp Metabolic Vsw729 B/ C Ratio 24.5 Ratio 08/08/2017 Comp Metabolic Axi934 CA LCIUM 9.0 mg/dL 08/08/2017 Comp Metabolic Jht996 AL K PHOS 49 U/L 08/08/2017 Comp Metabolic Yww191 T(SGOT) 32 U/L 08/08/2017 Comp Metabolic Gxu961 AL T(SGPT) 25 U/L 08/08/2017 Comp Metabolic Ydj139 BI LI T 0.7 mg/dL 08/08/2017 Comp Metabolic Fca076 AL BUMIN 4.2 g/dL 08/08/2017 Comp Metabolic Sfs058 TP RO 6.0 g/dL 08/08/2017 Comp Metabolic Xyw481 GL OB 1.9 g/dL 08/08/2017 Comp Metabolic Pnj005 A/ G Ratio 2.2 Ratio 08/08/2017 Comp Metabolic Seu331 Os mo 289 mOsmo 08/08/2017 Lipid Ord30 CHOL 110 mg/dL 08/08/2017 Lipid Ord30 HDL 57.0 mg/dl 08/08/2017 Lipid Ord30 TRIG 83 mg/dL 08/08/2017 Lipid Ord30 LDL 36 mg/dL 08/08/2017 Lipid Ord30 C/HDL 1.9 Ratio 08/08/2017 Comp Metabolic Aui071 NA 141 mEq/L 01/28/2016 Comp Metabolic Byh306 K 4.5 mEq/L 01/28/2016 Comp Metabolic Bgd908 CL 111 mEq/L 01/28/2016 Comp Metabolic Uav239 CO2 27.0 mEq/L 01/28/2016 Comp Metabolic Msx545 AN ION GAP 8 01/28/2016 Comp Metabolic Onq166 GL UCOSE 88 mg/dL 01/28/2016 Comp Metabolic Dzj313 Cr eat 1.1 mg/dL 01/28/2016 Comp Metabolic Bjk878 eG FR 69 ml/min/1.73m2 01/27 Comp Metabolic Hvy809 BUN 23 mg/dL 01/28/2016 Comp Metabolic Snl186 B/ C Ratio 21.3 Ratio 01/28/2016 Comp Metabolic Byp318 CA LCIUM 9.0 mg/dL 01/28/2016 Comp Metabolic Vbs367 AL K PHOS 48 U/L 01/28/2016 Comp Metabolic Cgd084 T(SGOT) 28 U/L 01/28/2016 Comp Metabolic Qta153 AL T(SGPT) 20 U/L 01/28/2016 Comp Metabolic Vpp281 BI LI T 0.8 mg/dL 01/28/2016 Comp Metabolic Gzy686 AL BUMIN 4.0 g/dL 01/28/2016 Comp Metabolic Qwj032 TP RO 6.0 g/dL 01/28/2016 Comp Metabolic Fxn247 GL OB 2.0 g/dL 01/28/2016 Comp Metabolic Zzf956 A/ G Ratio 2.0 Ratio 01/28/2016 Comp Metabolic Vst859 Os mo 284 mOsmo 01/28/2016 Lipid Ord30 [...] 34.5 pg 01/28/2016 Cbc With Differential Ord2 Tate% 10.0 % 01/28/2016 Cbc With Differential Ord2 [...] 1.17 K/ul 01/28/2016 Cbc With Differential Ord2 Tate ABS# 0.6 K/ul 01/28/2016 Cbc With Differential Ord2 Eos ABS# 0.1 K/ul 01/28/2016 Cbc With Differential Ord2 Baso ABS# 0.0 K/ul 01/28/2016 Total Psa Ord10 PSA 2.96 ng/mL 01/28/2016 Pt Ogh1689 PT 25.8 seconds 08/07/2015 Pt Bgc3785 INR 2.5 08/07/2015 Pt Lrt8865 Low Intensity - 1.5-2.0 08/07/2015 Pt Ysh1120 Mod intensity - 2.0-3.0 08/07/2015 Pt Fki2281 Hi intensity - 3.0-4.0 08/07/2015 Lipid Ord30 CHOL 102 mg/dL 08/07/2015 Lipid Ord30 HDL 50.0 mg/dl 08/07/2015 Lipid Ord30 TRIG 73 mg/dL 08/07/2015 Lipid Ord30 LDL 37 mg/dL 08/07/2015 Lipid Ord30 C/HDL 2.0 Ratio 08/07/2015 Hepatic Eoq819 ALBUMIN 4.0 g/dL 08/07/2015 Hepatic Lwl231 TPRO 6.0 g/dL 08/07/2015 Hepatic Bly293 GLOB 2.0 g/dL 08/07/2015 Hepatic Oxp165 A/G Ratio 2.0 Ratio 08/07/2015 Hepatic Drt740 ALK PHOS 47 U/L 08/07/2015 Hepatic Lxn087 ALT(SGPT) 20 U/L 08/07/2015 Hepatic Ymr890 AST(SGOT) 26 U/L 08/07/2015 Hepatic Jmh643 BILI T 0.6 mg/dL 08/07/2015 Hepatic Tcj580 BILI D 0.2 mg/dL 08/07/2015 Hepatic Bqh586 BILI I 0.4 mg/dL 08/07/2015 Pt Vxe0768 PT 24.3 seconds 12/22/2014 Pt Zpk6913 INR 2.3 12/22/2014 Pt Csl4775 Low Intensity - 1.5-2.0 12/22/2014 Pt Azw5091 Mod intensity - 2.0-3.0 12/22/2014 Pt Vxy6988 Hi intensity - 3.0-4.0 12/22/2014 URINALYSIS NONAUTO W/O SCOPE 51504 Specific [place] 1.030 DateTime(Free Text in Apr) URINALYSIS NONAUTO W/O SCOPE 21810 PH 6.5 DateTime(Free Ryan t in Aprima) URINALYSIS NONAUTO W/O SCOPE 88762 GLUCOSE neg DateTime(Free Ryan t in Aprima) URINALYSIS NONAUTO W/O SCOPE 29563 Protein trace DateTime(Free T ext in Aprima) URINALYSIS NONAUTO W/O SCOPE 69558 Blood 3+ DateTime(Free Text in Aprima) URINALYSIS NONAUTO W/O SCOPE 88085 Bilirubin neg DateTime(Free Ryan t in Aprima) URINALYSIS NONAUTO W/O SCOPE 50747 Ketones neg DateTime(Free Ryan t in Aprima) URINALYSIS NONAUTO W/O SCOPE 14555 Urobilinogen neg DateTime(Free Text in Aprima) URINALYSIS NONAUTO W/O SCOPE 19672 Nitrite neg DateTime(Free Ryan t in Aprima) URINALYSIS NONAUTO W/O SCOPE 29647 Leukocytes neg DateTime(Free Text in ) Review [...] Effective Dates Notes Full Exam - General 1995 Constitutional general appearance Overall: well developed 07/25/2018 None Full Exam - General 1995 Constitutional general appearance Overall: in no acute distress 07/25/2018 None Full Exam - General 1995 Constitutional general appearance Overall: well nourished 07/25/2018 [...] lips 07/01/2014 None Full Exam - General 1995 Ears/Nose/Throat lips/teeth/gingiva Overall: no masses 07/01/2014 None Full Exam - General 1994 Ears/Nose/Throat oral cavity/pharynx/larynx Overall: oral mucosa clear 07/01/2014 None Full Exam - General 1995 Ears/Nose/Throat [...] inspection of skin Dermatitis: erythema 08/22/2013 right denominational, no open are as, scabbed lesion healed [...] palp - head/face Location: on the right denominational 08/08/2013 --Improved Full Exam - Dermatology Integument [...] palp - head/face Location: on the right denominational 07/29/2013 None Full Exam - Dermatology Integument [...] inspection of skin Dermatitis: erythema 06/25/2013 left denominational, with irritat ed center of lesion Full [...] atraumatic 03/26/2013 None Full Exam - General 1995 [...] intact 03/26/2013 None Full Exam - General 1995 Psychiatric orientation/consciousness Overall: oriented to person, place and time 03/26/2013 None Full Exam - General 1995 Psychiatric mood and affect Overall: normal mood and affect 03/26/2013 None Full Exam - General 1995 Integument inspection of skin Dermatitis: erythema 03/26/2013 left denominational, with irritat ed center of lesion Full Exam - General 1994 Integument inspection of skin Dermatitis: dryness/flaking 03/26/2013 under right eye with horn development Full Exam - General 1994 Psychiatric orientation/consciousness Overall: oriented to person, place and time 12/25/2012 None Full Exam - General 1995 Constitutional general appearance Overall: well developed 12/25/2012 None Full Exam - General 1994 Constitutional general appearance Overall: in no acute distress 12/25/2012 None Full Exam - General 1995 Constitutional general appearance Overall: well nourished 12/25/2012 None Full Exam - General 1995 Integument inspection of skin Location: face 12/25/2012 [...] accomodation 11/20/2012 None Full Exam - General 1995 Ears/Nose/Throat otoscopic exam Overall: external auditory canals clear 11/20/2012 None Full Exam - General 1995 Ears/Nose/Throat otoscopic exam Overall: tympanic membranes clear 11/20/2012 None Full Exam - General 1995 Ears/Nose/Throat lips/teeth/gingiva Overall: benign lips 11/20/2012 None Full Exam - General 1995 Ears/Nose/Throat lips/teeth/gingiva Overall: no masses 11/20/2012 None Full Exam - General 1995 [...] sounds 08/21/2012 None Full Exam - General 1995 Musculoskeletal head and neck Overall: head atraumatic 08/21/2012 None Full Exam - General 1995 Ears/Nose/Throat lips/teeth/gingiva Overall: no masses 08/21/2012 None Full Exam - General 1995 Ears/Nose/Throat oral cavity/pharynx/larynx Overall: oral mucosa clear 08/21/2012 None Full Exam - General 1994 Psychiatric mood and affect Overall: normal mood and affect 08/21/2012 None Full Exam - General 1995 Musculoskeletal head and neck Overall: TMJ benign 08/21/2012 None Full Exam - General 1995 Musculoskeletal [...] flexion 07/12/2011 None Full Exam - General 1995 Psychiatric [...] VACC PRSV FREE I NC ANTIG CPT-4: 82339 01/25/2017 PPPS, SUBSEQ VISIT CPT- 4: G0439 08/05/2016 ADMIN PNEUMOCOCCAL V ACCINE SNOMED CT: 06046255 CPT-4: G0009 04/26/2016 Pneumococcal Polysac charide Vaccine, 23-Valent, Ad Formatting Model/CDA Sections, Assigned to/Raquel Shelley CPT-4: 72060Tkyrzmh 04/26/2016 ADMIN INFLUENZA VIRU S VAC CPT-4: G0008 01/27/2016 FLU VACC 4 JULISA 3 YRS PLUS IM Formatting Model/CDA Sections, Assigned to/Raquel Shelley SNOMED CT: 45215135 CPT-4: 44856Lmagqev 01/27/2016 ADMIN INFLUENZA VIRU S VAC Formatting Model/CDA Sections, Assigned to CPT-4: E2022Wlginvp 01/20/2015 FLU VACC 4 JULISA 3 YRS PLUS IM SNOMED CT: 07494837 CPT-4: 06743 01/20/2015 DRAIN/INJECT JOINT/B URSA CPT-4: 73809 04/01/2014 TRIAMCINOLONE ACET I [place] NOS CPT-4: J3301 04/01/2014 URINALYSIS NONAUTO W /O SCOPE CPT-4: 84678 04/01/2014 ADMIN INFLUENZA VIRU S VAC Assigned to/Raquel Shelley CPT-4: J9088Cgfndxz 01/13/2014 FLU VAC NO PRSV 4 VA L 3 YRS+ Assigned to/Raquel Shelley CPT-4: 17882Uhpwcyt 01/13/2014 PRESCRIP TRANSMIT A ERX SY CPT-4: G8553 03/26/2013 ADMIN INFLUENZA VIRU S VAC CPT-4: G0008 01/14/2013 FLULAVAL VACC, 3 YRS & >, IM CPT-4: Q2036 01/14/2013 DESTRUCT PREMALG LESION CPT-4: 38216 12/25/2012 PRESCRIP TRANSMIT A ERX SY CPT-4: G8553 08/21/2012 DRAIN/INJECT JOINT/B URSA CPT-4: 90884 06/28/2012 TRIAMCINOLONE ACET I [place] NOS CPT-4: J3301 06/28/2012 ADMIN INFLUENZA VIRU S VAC CPT-4: G0008 02/14/2012 FLULAVAL VACC, 3 YRS & >, IM CPT-4: Q2036 02/14/2012 URINALYSIS NONAUTO W /O SCOPE CPT-4: 66617 07/12/2011 PRESCRIP TRANSMIT A ERX SY CPT-4: G8553 07/12/2011 ADMIN INFLUENZA VIRU S VAC CPT-4: G0008 01/11/2011 FLULAVAL VACC, 3 YRS & >, IM CPT-4: Q2036 01/11/2011 Vital Signs Date Vital 07/25/2018 Blood Pressure 1: 126/70 Code: 8480-6 BMI: 21.1 Code: 61802-6 Heart Rate 1: 57 bpm Height: 5'7" SpO2: 99% Weight: 135 lbs 07/05/2018 Blood Pressure 1: 124/60 Code: 8480-6 BMI: 21.3 Code: 18224-9 Heart Rate 1: 68 bpm Height: 5'7" SpO2: 97% Weight: 135 lbs 14 o z 06/26/2018 Blood Pressure 1: 128/76 Code: 8480-6 BMI: 21.6 Code: 78758-6 Heart Rate 1: 82 bpm Height: 5'7" SpO2: 95% Weight: 138 lbs 03/27/2018 Blood Pressure 1: 122/70 Code: 8480-6 BMI: 21.1 Code: 78989-8 Heart Rate 1: 76 bpm Height: 5'7" SpO2: 96% Weight: 135 lbs 02/14/2018 Blood Pressure 1: 102/58 Code: 8480-6 BMI: 21.5 Code: 21769-2 Heart Rate 1: 78 bpm Height: 5'7" SpO2: 98% Weight: 137 lbs 11/08/2017 Blood Pressure 1: 132/68 Code: 8480-6 BMI: 21.9 Code: 29549-4 Heart Rate 1: 66 bpm Height: 5'7" SpO2: 98% Weight: 140 lbs 08/11/2017 Blood Pressure 1: 118/68 Code: 8480-6 BMI: 22.2 Code: 63233-2 Heart Rate 1: 63 bpm Height: 5'7" SpO2: 98% Waist Measure (cm): 61 cm Weight: 142 lbs 08/09/2017 Blood Pressure 1: 11868 Code: 8480-6 BMI: 22.4 Code: 58938-0 Heart Rate 1: 60 bpm Height: 5'7" SpO2: 98% Weight: 143 lbs 04/11/2017 Blood Pressure 1: 122/68 Code: 8480-6 BMI: 23.0 Code: 45837-9 Heart Rate 1: 65 bpm Height: 5'7" SpO2: 98% Weight: 147 lbs 01/25/2017 Blood Pressure 1: 136/58 Code: 8480-6 BMI: 23.0 Code: 91705-3 Heart Rate 1: 63 bpm Height: 5'7" SpO2: 96% Weight: 147 lbs 12/21/2016 Blood Pressure 1: 112/52 Code: 8480-6 BMI: 23.0 Code: 03047-9 Heart Rate 1: 73 bpm Height: 5'7" SpO2: 97% Weight: 147 lbs 12/01/2016 Blood Pressure 1: 128/76 Code: 8480-6 BMI: 22.7 Code: 64369-2 Heart Rate 1: 67 bpm Height: 5'7" SpO2: 95% Weight: 145 lbs 10/25/2016 Blood Pressure 1: 128/70 Code: 8480-6 BMI: 23.5 Code: 18688-7 Heart Rate 1: 62 bpm Height: 5'7" SpO2: 96% Weight: 150 lbs 08/05/2016 Blood Pressure 1: 110/58 Code: 8480-6 BMI: 23.3 Code: 86924-9 Heart Rate 1: 65 bpm Height: 5'7" SpO2: 95% Waist Measure (cm): 102 cm Weight: 149 lbs 07/26/2016 Blood Pressure 1: 112/64 Code: 8480-6 BMI: 23.3 Code: 87658-1 Heart Rate 1: 62 bpm Height: 5'7" SpO2: 95% Weight: 149 lbs 04/26/2016 Blood Pressure 1: 124/68 Code: 8480-6 BMI: 23.8 Code: 08142-1 Heart Rate 1: 64 bpm Height: 5'7" SpO2: 98% Weight: 152 lbs 01/27/2016 Blood Pressure 1: 118/70 Code: 8480-6 BMI: 24.0 Code: 89001-2 Heart Rate 1: 64 bpm Height: 5'7" SpO2: 97% Weight: 153 lbs 10/27/2015 Blood Pressure 1: 114/60 Code: 8480-6 BMI: 23.7 Code: 53417-9 Heart Rate 1: 61 bpm Height: 5'7" SpO2: 97% Weight: 151 lbs 8 oz 06/30/2015 Blood Pressure 1: 102/60 Code: 8480-6 BMI: 23.9 Code: 68628-4 Heart Rate 1: 70 bpm Height: 5'7" SpO2: 97% Weight: 152 lbs 8 oz 03/31/2015 Blood Pressure 1: 122/64 Code: 8480-6 BMI: 23.2 Code: 12515-3 Heart Rate 1: 64 bpm Height: 5'7" SpO2: 97% Weight: 148 lbs 03/17/2015 Blood Pressure 1: 142/76 Code: 8480-6 BMI: 23.5 Code: 50390-0 Heart Rate 1: 64 bpm Height: 5'7" SpO2: 98% Weight: 150 lbs 01/20/2015 Blood Pressure 1: 128/64 Code: 8480-6 BMI: 22.9 Code: 32171-2 Heart Rate 1: 72 bpm Height: 5'7" SpO2: 96% Weight: 146 lbs 12/15/2014 Blood Pressure 1: 110/60 Code: 8480-6 BMI: 21.9 Code: 66519-9 Heart Rate 1: 88 bpm Height: 5'7" SpO2: 96% Weight: 140 lbs 09/30/2014 Blood Pressure 1: 146/70 Code: 8480-6 BMI: 23.5 Code: 92910-4 Heart Rate 1: 53 bpm Height: 5'7" SpO2: 94% Weight: 150 lbs 07/01/2014 Blood Pressure 1: 140/62 Code: 8480-6 BMI: 23.6 Code: 98867-4 Heart Rate 1: 70 bpm Height: 5'7" Weight: 151 lbs 04/01/2014 Blood Pressure 1: 118/78 Code: 8480-6 BMI: 24.5 Code: 12534-3 Heart Rate 1: 56 bpm Height: 5'7" Weight: 156 lbs 8 oz 01/13/2014 Blood Pressure 1: 138/64 Code: 8480-6 BMI: 24.4 Code: 22560-9 Heart Rate 1: 54 bpm Height: 5'7" SpO2: 96% Weight: 156 lbs 10/15/2013 Blood Pressure 1: 124/74 Code: 8480-6 BMI: 24.6 Code: 64370-4 Heart Rate 1: 60 bpm Height: 5'7" Weight: 157 lbs 09/11/2013 Blood Pressure 1: 120/62 Code: 8480-6 BMI: 23.6 Code: 44147-9 Heart Rate 1: 64 bpm Height: 5'7" Weight: 151 lbs 08/22/2013 Blood Pressure 1: 120/64 Code: 8480-6 BMI: 24.4 Code: 53649-1 Heart Rate 1: 64 bpm Height: 5'7" Weight: 156 lbs 08/08/2013 Blood Pressure 1: 102/62 Code: 8480-6 BMI: 24.7 Code: 18912-5 Heart Rate 1: 60 bpm Height: 5'7" Weight: 158 lbs 07/29/2013 Blood Pressure 1: 114/74 Code: 8480-6 Heart Rate 1: 60 bpm 06/25/2013 Blood Pressure 1: 128/70 Code: 8480-6 BMI: 24.1 Code: 16262-8 Heart Rate 1: 56 bpm Height: 5'7" SpO2: 98% Weight: 154 lbs 03/26/2013 Blood Pressure 1: 132/78 Code: 8480-6 BMI: 24.6 Code: 42891-8 Heart Rate 1: 60 bpm Height: 5'7" SpO2: 98% Temperature: 36.5 (C ) / 97.7 (F) Weight: 157 lbs 12/25/2012 Blood Pressure 1: 98/60 Code: 8480-6 Heart Rate 1: 64 bpm Weight: 160 lbs 11/20/2012 Blood Pressure 1: 136/80 Code: 8480-6 BMI: 24.6 Code: 15059-3 Heart Rate 1: 68 bpm Height: 5'7" Weight: 157 lbs 08/21/2012 Blood Pressure 1: 112/56 Code: 8480-6 BMI: 23.8 Code: 33707-1 Heart Rate 1: 60 bpm Height: 5'7" Weight: 152 lbs 06/28/2012 Blood Pressure 1: 128/82 Code: 8480-6 Heart Rate 1: 80 bpm Respiratory Rate: 20 bpm Weight: 149 lbs 05/21/2012 Blood Pressure 1: 116/64 Code: 8480-6 BMI: 23.6 Code: 81144-9 Heart Rate 1: 72 bpm Height: 5'7" Weight: 151 lbs 04/26/2012 Blood Pressure 1: 140/80 Code: 8480-6 Heart Rate 1: 76 bpm Respiratory Rate: 16 bpm Temperature: 36.7 (C) / 98.0 (F) Weight: 02/14/2012 Blood Pressure 1: 116/58 Code: 8480-6 BMI: 23.6 Code: 70173-6 Heart Rate 1: 64 bpm Height: 5'7" Respiratory Rate: 18 bpm Weight: 151 lbs 10/11/2011 Blood Pressure 1: 100/54 Code: 8480-6 Heart Rate 1: 60 bpm Respiratory Rate: 16 bpm Weight: 143 lbs 07/12/2011 Blood Pressure 1: 130/62 Code: 8480-6 BMI: 22.9 Code: 00455-1 Heart Rate 1: 62 bpm Height: 5'7" Respiratory Rate: 16 bpm Weight: 146 lbs 05/11/2011 Blood Pressure 1: 120/64 Code: 8480-6 BMI: 23.6 Code: 33128-0 Heart Rate 1: 72 bpm Height: 5'7" Respiratory Rate: 16 bpm Weight: 151 lbs 04/12/2011 Blood Pressure 1: 120/62 Code: 8480-6 BMI: 24.6 Code: 72188-2 Heart Rate 1: 60 bpm Height: 5'7" Respiratory Rate: 16 bpm Weight: 157 lbs 01/11/2011 Blood Pressure 1: 126/68 Code: 8480-6 BMI: 24.7 Code: 59402-0 Heart Rate 1: 50 bpm Height: 5'7" [...] lesion Location on the forehead 07/29/2013 right denominational skin lesion Onset and Resolution ongoing 07/29/2013 [...] down to 130lbs but since moving to [place] has gained some weight back hypertension Quality [...] remembering names 01/11/2011 None memory loss 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 P ATIENT, LEVEL III Diagnosis: Otalgia, left ear[ICD10: H92.02] Nay Martinez MD, [facility] CPT-4: 28894 07/25/2018 ([id number]) 99572 EST. P ATIENT, LEVEL III Diagnosis: Otalgia, left ear[ICD10: H92.02] Nay Martinez MD, [facility] CPT-4: 15346 07/05/2018 ([id number]) 10245 EST. P ATIENT, LEVEL III Diagnosis: Otorrhagia, bilateral[ICD10: H92.23] Nay Martinez MD, [facility] CPT-4: 16580 06/26/2018 ([id number]) 34414 EST. P ATIENT, LEVEL III Diagnosis: Essential (primary) hypertension[ICD10: I10] Diagnosis: Slow transit constipation[ICD10: K59.01] Nay Martinez MD, [facility] CPT-4: 46198 03/27/2018 ([id number]) 40487 EST. P ATIENT, LEVEL III Diagnosis: Slow transit constipation[ICD10: K59.01] Diagnosis: Other hypotension[ICD10: I95.89] Nay Martinez MD, [facility] CPT-4: 52251 02/14/2018 ([id number]) 41988 EST. P ATIENT, LEVEL IV Diagnosis: Essential (primary) hypertension[ICD10: I10] Diagnosis: Alzheimer's disease with early onset[ICD10: G30.0] Diagnosis: Actinic keratosis[ICD10: L57.0] Nay Martinez MD, [facility] CPT-4: 07258 11/08/2017 ([id number]) 33575 EST. P ATIENT, LEVEL IV Diagnosis: Essential (primary) hypertension[ICD10: I10] Diagnosis: Mixed hyperlipidemia[ICD10: E78.2] Diagnosis: Alzheimer's disease with early onset[ICD10: G30.0] Nay Martinez MD, C CPT-4: 13146 08/09/2017 ([id number]) 58706 EST. P ATIENT, LEVEL IV Diagnosis: Essential (primary) hypertension[ICD10: I10] Diagnosis: Alzheimer's disease with early onset[ICD10: G30.0] Diagnosis: Mixed hyperlipidemia[ICD10: E78.2] Diagnosis: Pain in left knee[ICD10: M25.562] Nay Martinez MD, [facility] CPT-4: 56822 04/11/2017 ([id number]) 28164 EST. P ATIENT, LEVEL III Diagnosis: Essential (primary) hypertension[ICD10: I10] Diagnosis: Encounter for immunization[ICD10: Z23] Diagnosis: Alzheimer's disease with early onset[ICD10: G30.0] Nay Martinez MD, [facility] CPT-4: 46967 01/25/2017 ([id number]) 93237 EST. P ATIENT, LEVEL III Diagnosis: Otalgia, left ear[ICD10: H92.02] Nay Martinez MD, [facility] CPT-4: 53304 12/21/2016 ([id number]) 87078 EST. P ATIENT, LEVEL IV Diagnosis: Essential (primary) hypertension[ICD10: I10] Diagnosis: Alzheimer's disease with early onset[ICD10: G30.0] Diagnosis: Abnormal weight loss[ICD10: R63.4] Nay Martinez MD, [facility] CPT- 4: 03924 12/01/2016 ([id number]) 84842 EST. P ATIENT, LEVEL IV Diagnosis: Essential (primary) hypertension[ICD10: I10] Diagnosis: Mixed hyperlipidemia[ICD10: E78.2] Nay Martinez MD, [facility] CPT- 4: 46884 10/25/2016 39076 EST. PATIENT, LEVEL IV Diagnosis: Essential (primary) hypertension[ICD10: I10] Diagnosis: Alzheimer's disease with early onset[ICD10: G30.0] Diagnosis: Pain in left knee[ICD10: M25.562] Diagnosis: Cyst of kidney, acquired[ICD10: N28.1] Nay Martinez MD, [facility] CPT-4: 11768 07/26/2016 ([id number]) 50923 EST. P ATIENT, LEVEL IV Diagnosis: Essential (primary) hypertension[ICD10: I10] Diagnosis: Alzheimer's disease with early onset[ICD10: G30.0] Rosa Martinez MD, [facility] CPT-4: 81130 04/26/2016 ([id number]) 82488 EST. P ATIENT, LEVEL IV Diagnosis: Essential (primary) hypertension[ICD10: I10] Diagnosis: Alzheimer's disease with early onset[ICD10: G30.0] Diagnosis: VACCIN FOR INFLUENZA[ICD10: Z23] Nay Martinez MD, [facility] CPT-4: 70620 01/27/2016 ([id number]) 43001 EST. P ATIENT, LEVEL IV Diagnosis: Essential (primary) hypertension[ICD10: I10] Diagnosis: Alzheimer's disease with early onset[ICD10: G30.0] Nay Martinez MD, [facility] CPT-4: 08681 10/27/2015 ([id number]) 09868 EST. P ATIENT, LEVEL IV Diagnosis: Essential (primary) hypertension[ICD10: I10] Diagnosis: Alzheimer's disease with early onset[ICD10: G30.0] Nay Martinez MD, [facility] CPT-4: 58581 06/30/2015 ([id number]) 06749 EST. P ATIENT, LEVEL IV Diagnosis: Essential (primary) hypertension[ICD10: I10] Diagnosis: Alzheimer's disease with early onset[ICD10: G30.0] Nay Martinez MD, [facility] CPT-4: 24636 03/31/2015 50168 EST. PATIENT, LEVEL III Diagnosis: Low back pain[ICD10: M54.5] Fern Martinez MD, [facility] CPT-4: 40600 03/17/2015 ([id number]) 19082 EST. P ATIENT, LEVEL IV Diagnosis: ESSENTIAL HYPERTENSION[ICD9: 401.9] Diagnosis: Encounter for long-term (current) use of anticoagulants[ICD9: V58.61] Diagnosis: Skin change[ICD9: 782.9] Diagnosis: Change in mole[ICD9: 216.9] Diagnosis: VACCIN FOR INFLUENZA[ICD9: V04.81] Nay Martinez MD, [facility] CPT- 4: 98079 01/20/2015 ([id number]) 62564 EST. P ATIENT, LEVEL IV Diagnosis: ESSENTIAL HYPERTENSION[ICD9: 401.9] Diagnosis: OSTEOARTHROSIS-MULT SITE[ICD9: 715.80] Diagnosis: Knee pain[ICD9: 719.46] Diagnosis: ENCNTR LONG-ANTICOAG USE[ICD9: V58.61] Nay Martinez MD, [facility] CPT-4: 49992 12/15/2014 ([id number]) 67929 EST. P ATIENT, LEVEL IV Diagnosis: ESSENTIAL HYPERTENSION[ICD9: 401.9] Diagnosis: OSTEOARTHROSIS-MULT SITE[ICD9: 715.80] Diagnosis: Knee pain[ICD9: 719.46] [facility] CPT-4: 60615 09/30/2014 ([id number]) 27942 EST. P ATIENT, LEVEL IV Diagnosis: Skin cancer[ICD9: 173.90] Diagnosis: ESSENTIAL HYPERTENSION[ICD9: 401.9] Diagnosis: ALZHEIMER'S DISEASE[ICD9: 331.0] Diagnosis: Knee pain[ICD9: 719.46] Nay Martinez MD, [facility] CPT-4: 49109 07/01/2014 ([id number]) 24970 EST. P ATIENT, LEVEL IV Diagnosis: ESSENTIAL HYPERTENSION[ICD9: 401.9] Diagnosis: Dysuria[ICD9: 788.1] Diagnosis: Knee pain, bilateral[ICD9: 719.46] Diagnosis: Osteoarthritis[ICD9: 715.90] Diagnosis: Dementia[ICD9: 294.8] Nay Martinez MD, [facility] CPT-4: 64105 04/01/2014 ([id number]) 20388 EST. P ATIENT, LEVEL IV Diagnosis: ESSENTIAL HYPERTENSION[ICD9: 401.9] Diagnosis: VACCIN FOR INFLUENZA[ICD10: Z23] Diagnosis: HYPERLIPIDEMIA[ICD9: 272.4] Diagnosis: ALZHEIMER'S DISEASE[ICD9: 331.0] Nay Martinez MD, [facility] CPT-4: 64598 01/13/2014 ([id number]) 09585 EST. P ATIENT, LEVEL IV Diagnosis: Dementia[ICD9: 294.8] Diagnosis: Alzheimer's dementia[ICD9: 331.0] Diagnosis: OSTEOARTHROSIS-MULT SITE[ICD9: 715.80] Diagnosis: ESSENTIAL HYPERTENSION[ICD9: 401.9] Nay Martinez MD, [facility] CPT- 4: 19660 10/15/2013 ([id number]) 08605 EST. P ATIENT, LEVEL III Diagnosis: Knee pain, acute[ICD9: 719.46] Diagnosis: Osteoarthritis[ICD9: 715.90] Diagnosis: Gait instability[ICD9: 781.2] Nay Martinez MD, [facility] CPT-4: 08199 09/11/2013 ([id number]) 12949 EST. P ATIENT, LEVEL III Diagnosis: CELLULITIS OF FACE[ICD9: 682.0] Diagnosis: Esophageal reflux[ICD9: 530.81] Rosa Martinez MD, [facility] CPT- 4: 17770 08/22/2013 79684 EST. PATIENT, LEVEL II Diagnosis: CELLULITIS OF FACE[ICD9: 682.0] Nay Martinez MD, [facility] CPT-4: 72727 08/08/2013 ([id number]) 66725 EST. P ATIENT, LEVEL III Diagnosis: Cellulitis of denominational[ICD9: 682.0] Nay Martinez MD, [facility] CPT-4: 07464 07/29/2013 ([id number]) 26214 EST. P ATIENT, LEVEL IV Diagnosis: ESSENTIAL HYPERTENSION[SNOMED: 81735158] Diagnosis: ALZHEIMER'S DISEASE[ICD9: 331.0] Diagnosis: INTEGUMENT TISS SYMP NEC[ICD9: 782.9] Diagnosis: JOINT PAIN-L/LEG[ICD9: 719.46] Nay Martinez MD, [facility] CPT-4: 62746 06/25/2013 ([id number]) 33840 EST. P ATIENT, LEVEL IV Diagnosis: ESSENTIAL HYPERTENSION[SNOMED: 22216738] Diagnosis: ACTINIC KERATOSIS[ICD9: 702.0] Diagnosis: Skin cancer[ICD9: 173.90] Diagnosis: COUGH[ICD9: 786.2] Diagnosis: ACUTE BRONCHITIS[ICD9: 466.0] Nay Martinez MD, [facility] CPT-4: 27638 03/26/2013 97549 EST. PATIENT, LEVEL IV Diagnosis: ESSENTIAL HYPERTENSION[SNOMED: 78646256] Diagnosis: ALZHEIMER'S DISEASE[ICD9: 331.0] Diagnosis: JOINT PAIN-L/LEG[ICD9: 719.46] Diagnosis: MUSCSKEL SYMPT LIMB NEC[ICD9: 729.89] [facility] CPT-4: 24516 11/20/2012 ([id number]) 95009 EST. P ATIENT, LEVEL IV Diagnosis: ESSENTIAL HYPERTENSION[SNOMED: 59987785] Diagnosis: ALZHEIMER'S DISEASE[ICD9: 331.0] Diagnosis: ENCNTR LONG-ANTICOAG USE[ICD9: V58.61] Diagnosis: Skin change[ICD9: 782.9] [facility] CPT-4: 94420 08/21/2012 ([id number]) 75087 EST. P ATIENT, LEVEL III Diagnosis: SUBDURAL HEMORRHAGE[ICD9: 432.1] [facility] CPT-4: 66787 06/28/2012 ([id number]) 63603 EST. P ATIENT, LEVEL IV Diagnosis: ESSENTIAL HYPERTENSION[SNOMED: 36745810] Diagnosis: Subdural hematoma[ICD9: 432.1] Diagnosis: Encounter for long-term (current) use of anticoagulants[ICD9: V58.61] Nay Martinez MD, [facility] CPT-4: 16418 05/21/2012 ([id number]) Patient adm itted to the hospital from clinic (NO CHARGE) Diagnosis: Lower extremity weakness[ICD9: 729.89] Diagnosis: FALL AGAINST OBJECT[ICD9: E888.1] Diagnosis: Gait instability[ICD9: 781.2] Nay Martinez MD, [facility] CPT-4: 69922E 04/26/2012 ([id number]) 47095 EST. P ATIENT, LEVEL IV Diagnosis: ESSENTIAL HYPERTENSION[SNOMED: 91201334] Diagnosis: ALZHEIMER'S DISEASE[ICD9: 331.0] Diagnosis: HYPERLIPIDEMIA[ICD9: 272.4] Nay Martinez MD, [facility] CPT-4: 54718 02/14/2012 ([id number]) 30056 EST. P ATIENT, LEVEL IV Diagnosis: ALZHEIMER'S DISEASE[ICD9: 331.0] Diagnosis: Abnormal loss of weight[ICD9: 783.21] Diagnosis: Knee pain, bilateral[ICD9: 719.46] Diagnosis: ESSENTIAL HYPERTENSION[SNOMED: 88674070] Nay Martinez MD, [facility] CPT-4: 43203 10/11/2011 ([id number]) 27111 EST. P ATIENT, LEVEL IV Diagnosis: ESSENTIAL HYPERTENSION[SNOMED: 51014537] Diagnosis: JOINT PAIN-L/LEG[ICD9: 719.46] Diagnosis: Thrush[ICD9: 112.0] Diagnosis: Abdominal pain[ICD9: 789.00] Nay Martinez MD, [facility] CPT-4: 65729 07/12/2011 ([id number]) 55920 EST. P ATIENT, LEVEL III Diagnosis: Knee pain[ICD9: 719.46] Diagnosis: OSTEOARTHROSIS-MULT SITE[ICD9: 715.80] Nay Martinez MD, [facility] CPT-4: 72966 05/11/2011 ([id number]) 75330 EST. P ATIENT, LEVEL IV Diagnosis: Alzheimer's dementia[ICD9: 331.0] Diagnosis: ESSENTIAL HYPERTENSION[SNOMED: 34827390] Nay Martinez MD, [facility] CPT-4: 97067 04/12/2011 67275 EST. PATIENT, LEVEL IV Diagnosis: ESSENTIAL HYPERTENSION[SNOMED: 00975636] Diagnosis: HYPERLIPIDEMIA[ICD9: 272.4] Diagnosis: VACCIN FOR INFLUENZA[ICD9: V04.81] Diagnosis: Dementia[ICD9: 294.8] Nay Martinez MD, [facility] CPT-4: 28621 01/11/2011 Plan of Care Planned Activity Notes C odes Status Date Visit Plan: Blood in ears - removed the dried blood shard that is residual in left ear - no other treatment changes needed. 07/25/2018 Appointment: Nay Martinez WPtel: [facility] (15 min) Moderate 07/25/2018 Patient Education: Patient [...] 2 wks 07/05/2018 Appointment: [facility] ([facility]) Moderate 07/05/2018 Patient Education: Patient Medication Summary Completed 07/05/2018 Visit Plan: Nasal congestion - rx f or flonase to the [facility] - rx was called to [facility]. Blood in ears - due to pt using qtips aggressively - recommended pt to use mineral oil in ears nightly x 10 days - return to clinic in 10 days for my evaluation to see if there are any residual lesions in his ears once the dried blood is out of the ear canals. 06/26/2018 Appointment: Nay [facility]el[facility] (15 min) Moderate 06/26/2018 Patient Education: [...] at home. 03/27/2018 Appointment: Nay Martinez WPtel: [phone] [facility] (15 min) Moderate 03/27/2018 Patient Education: Patient Medication Summary Completed 03/27/2018 Appointment: Nay Martinez WPtel: [phone] [facility] [place] (15 min) Moderate 03/07/2018 Appointment: Nay Martinez WPtel: [phone] [facility] (15 min) Moderate 02/21/2018 Visit Plan: Constipation [...] morning. 02/14/2018 Appointment: Nay Martinez WPtel: [phone] [facility] (15 min) Moderate 02/14/2018 Patient Education: Patient [...] medications. 11/08/2017 Appointment: [phone] (15 min) Moderate 11/08/2017 Patient Education: [...] surrogate. 08/11/2017 App[facility]ment: [phone] [facility] - Annual Wellness Visit 08/11/2017 [...] fat intake. 08/09/2017 Appointment: [facility]ay [facility]el[phone] (15 min) Moderate 08/09/2017 Patient Education: Patient Medication Summary Completed 08/09/2017 Visit Plan: Hypertension - well con mohitlled - continue with current medications, continue with [...] normal liver response to medications. 04/11/2017 Appointment: Nya Martinez WPtel: [facility] (15 min) Moderate 04/11/2017 Patient Education: Patient Medication Summary Completed 04/11/2017 Visit Plan: Hypertension - well con mohitlled - continue with current medications, continue with [...] memory loss. 01/25/2017 Appointment: Nay Martinez [facility]Ptel[facility] [place] (15 min) Moderate 01/25/2017 Patient Education: Patient Medication Summary Completed 01/25/2017 Appointment: Nay Martinez WPtel: [phone] [facility] (15 min) Moderate 01/24/2017 Visit Plan: Dried bloody debris in left ear - removed with alligator forceps, ear currette - pt to use mineral oil in the ear. 12/21/2016 Appointment: [facility]ay [phone] (15 min) Moderate 12/21/2016 Patient Education: Patient [...] fat intake. 12/01/2016 Appointment: [phone] (15 min) Moderate 12/01/2016 Patient Education: Patient [...] medications. 10/25/2016 Appointment: Nay [facility]el[facility] (15 min) Moderate 10/25/2016 Patient Education: Patient [...] maintain independence in the home. 08/05/2016 Appointment: Rsoa Aguilar WPtel: [phone] [facility] - Annual Wellness Visit 08/05/2016 [...] for tomorrow. 07/26/2016 Appointment: Nay Martinez WPtel: [facility] (15 min) Moderate 07/26/2016 Patient Education: Patient [...] treatment. 04/26/2016 Appointment: Rosa Aguilar WPtel: [phone] [phone] (15 min) Moderate 04/26/2016 Patient Education: Patient [...] treatment. 01/27/2016 Appointment: Nay Martinez WPtel: [phone] [facility] (15 min) Moderate 01/27/2016 Patient Education: [...] of treatment. 10/27/2015 Appointment: Nay Martinez WPtel: [phone] [facility] (15 min) Moderate 10/27/2015 Patient Education: Patient [...] with current plan of treatment. 06/30/2015 Appointment: Florence Nay [facility]el[phone] [place] (15 min) Moderate 06/30/2015 Appointment: [facility]ay [facility]Ptel[facility] [place] (15 min) Moderate 06/30/2015 Patient Education: [...] of treatment. 03/31/2015 Appointment: Nay Martinez [facility]Ptel[facility] [place] (15 min) Moderate 03/31/2015 Patient [...] Omid will need this lesion surgically removed. 01/20/2015 [...] Omid will need this lesion surgically removed. 01/20/2015 Appointment: Nay Martinez WPtel: [facility] (15 min) Moderate 01/20/2015 Patient Education: Patient Medication Summary Completed 01/20/2015 Patient Education: Hypertension Completed 01/20/2015 Care Plan: Referral Order SNOMED-CT : [id number] Ordered 01/20/2015 Appointment: Nay Martinez WPtel: [facility] (15 min) Moderate 12/18/2014 Visit Plan: Hypertension [...] and 3.5. 12/15/2014 Appointment: Nay Martinez WPtel: [facility] (15 min) Moderate 12/15/2014 Patient Education: Patient [...] have his knee operated on at [facility], I have placed a phone call to Dr. Ballesteros - waiting on a call back 09/30/2014 Appointment: Nay [facility]Ptel[phone] Follow up 09/30/2014 Patient Education: Patient [...] knee. 07/01/2014 Appointment: [facility]ay [facility]el[phone] Follow up 07/01/2014 Patient Education: Patient Medication Summary Completed 07/01/2014 Patient Education: Hypertension Completed 07/01/2014 Care Plan: Referral Order SNOMED-CT : [id number] Ordered 07/01/2014 Visit Plan: Hypertension - well [...] treatment. 04/01/2014 Appointment: Nay Martinez [facility]Ptel[phone] Follow up 04/01/2014 Patient Education: Patient Medication Summary Completed 04/01/2014 Visit Plan: Hypertension - alexandra nicole - [...] treatment. 01/13/2014 Appointment: [facility]ay [facility]Ptel[phone] Follow up 01/13/2014 Patient Education: Patient Medication Summary Completed 01/13/2014 Patient Education: Hypertension Completed 01/13/2014 Care Plan: COMPLETE CBC AUTOMATED LOINC : 25127-9 Ordered 01/13/2014 Visit Plan: Knee pain has improved - pt needs to continue with use of the voltaren gel, no change in treatment at this time, he is not interested in seeing an orthopedic surgeon until his knee pain is not controlled with the voltaren gel. Dementia - symptoms stable, but the director of diagnostic imaging of [employer] is stopping production of the [...] in medications. 10/15/2013 Appointment: Nay Martinez WPtel: [address] [place], [place] [phone] Follow up 10/15/2013 Patient Education: Patient Medication Summary Completed 10/15/2013 Patient Education: Hypertension Completed 10/15/2013 Appointment: Florence, Nay WPtel: [address] [place], [place] [phone] Follow up 10/02/2013 Visit Plan: Lower leg pain - rx for voltaren gel to be used on right knee four times daily to alleviate pain in knee. Pt to use walker - RX for rolator walker. 09/11/2013 Appointment: Nay Martinez WPtel: [address] [place], [place] [phone] Other 09/11/2013 Patient Education: Patient Medication Summary [...] current treatement. 08/22/2013 Appointment: Rosa Aguilar WPtel: [address] [place], [place] [phone] Follow up 08/22/2013 Patient Education: Patient Medication Summary Completed 08/22/2013 Visit Plan: Jzcfdpqhtha-yixnlkyr-ks ntinue treatment-return in 2 weeks for follow up 08/08/2013 Appointment: Rosa Aguilar WPtel: [address] [place], [place] [phone] Follow up 08/08/2013 Patient Education: Patient Medication [...] current plan of treatment. Skin lesion on denominational - pt to use flurouracil on lesions on denominational. OA of knees - pt to try voltaren gel. 06/25/2013 Appointment: Nay Martinez WPtel: [phone] [facility] Follow up 06/25/2013 Patient Education: Patient Medication [...] acute conerns. 03/26/2013 Appointment: Nay Martinez WPtel: [phone] [facility] [place] Follow up 03/26/2013 Patient Education: Patient Medication Summary Completed 03/26/2013 Patient Education: Hypertension Completed 03/26/2013 Appointment: Rosa [facility]el[phone] [place] Nurse Visit 01/14/2013 Patient Education: Patient Medication Summary Completed 01/14/2013 Visit Plan: Wound Instructions - Pt was instruced to keep the wound clean, wash with antibacterial soap, use triple antibiotic ointment, call if redness, pustular drainage, or any other acute conerns. 12/25/2012 Appointment: Rosa [facility]ilarl[phone] Surgical Procedure 12/25/2012 Patient Education: Patient [...] be weak. 11/20/2012 Appointment: Nay Martinez [facility]Ptel: [phone] [place] Follow up 11/20/2012 Patient Education: Patient Medication [...] every days. 08/21/2012 Appointment: Nay Martinez [facility]Ptel: [phone] [facility] [place] Follow up 08/21/2012 Patient Education: Hypertension Completed 08/21/2012 Patient Education: Patient Medication Summary Completed 08/21/2012 Visit Plan: Subdural hematoma-recen t fall-decreased in size with tiny acute component-plan to repeat CT in 2 weeks Low back klee-qeicfjwpgjn-NM joint Injection today in the office - Pt was given post - injection instructions. The pt has been advised to use antiinflammatories post injection today, ice to the injected site, call if redness, warmth, or increased pain occurs at the site of injection. 06/28/2012 Appointment: Rosa Aguilar WPtel: [facility] [place] [address] Other 06/28/2012 Patient Education: Patient Medication Summary [...] this week. 05/21/2012 Appointment: Nay Martinez WPtel: [address] [place] [address] follow up 05/21/2012 Patient Education: Patient Medication Summary Completed 05/21/2012 Patient Education: Hypertension Completed 05/21/2012 Appointment: Nay Martinez WPtel: [address] [place] [address] Follow up 05/15/2012 Visit Plan: Fall-sudden onset of ri ght lower extremity weakness-Dr Martinez in to evaluate patient-plan to admit for observation and further work up which includes a STAT CT of the head and labs. Patient and verbalize understanding. 04/26/2012 Appointment: Nay Martinez WPtel: [address] [place] [address] balance problem, fall 1 month ago Other [...] of treatment. 02/14/2012 Appointment: Nay Martinez WPtel: [facility] Established Patient Preventative visit 02/14/2012 Patient [...] Weight loss - discussed the need for [place] to not loose more weight. He reports that he has actually gained weight in the past few weeks since moving to [facility]. Knee pain - has improved with flector patches, no change in current treatment. HTN - controlled - no change in medications. I have encouraged Omid to check his blood pressures oc casionally at home and bring in his list at his next office visit. 10/11/2011 Appointment: Nay Martinez [facility]Ptel: [facility] [facility] 10/11/2011 Patient Education: Patient Medication Summary Completed [...] OF BLOOD. 07/12/2011 Appointment: Nay Martinez WPtel: [address] [place] [address] Other 07/12/2011 Patient Education: Patient Medication Summary Completed 07/12/2011 Patient Education: High Blood Pressure: Essential Hypertension Completed 07/12/2011 Visit Plan: Knee pain- uncontrolled - but improving, recommend watchful waiting and to use FLECTOR PATCH, 1/4 of a patch and change twice daily.. Call if the pain worsens. 05/11/2011 Appointment: Nay Martinez WPtel: [address] [place], [place] [id number] Other 05/11/2011 Patient Education: Patient Medication Summary [...] in medications. 04/12/2011 Appointment: Nay Martinez WPtel: [address] [place] [address] Other 04/12/2011 Patient Education: Patient Medication Summary [...] this time. 01/11/2011 App[facility]ment: [facility] [id number] [id number] Other 01/11/2011 Patient Education: Patient Medication Summary Completed 01/11/2011 Referral: Cris Egan Referral Relationship Referral: Dayron Ballesteros Referral Appointment Requested Referral: Kings Valles [facility] [phone] [id number] Referral Relationship Referral: Carl Yu Referral Relationship [...] continue with lovenox, will check INR on wednesday of this week. . Blood in ears - th is has not completely resolved - I have recommended pt to continue to use mineral oil in ears nightly x 10 days - RTC in 2 wks . Fall-sudden onset of right lower extremity weakness-Dr Martinez in to evaluate patient-plan to admit for observation and further work up which includes a STAT CT of the head and labs. Patient and verbalize understanding. . Constipation -disc ussed with pt - [...] Nasal congestion - rx for flonase to [facility] - rx was called to [facility]. Blood in ears - due to pt using qtips aggressively - recommended pt to use mineral oil in ears nightly x 10 days - return to clinic in 10 days for my evaluation to see if there are any residual lesions in his ears once the dried blood is out of the ear canals. . Celllulitis-[facility] ed-continue treatment-return in 2 weeks for follow up . Memory loss- sympt oms slightly worsening [...] repeat CT in 2 weeks Low back ojzs-[id number]-AQ joint Injection today in the office - [...] Continue with current plan of treatment. . Wound Instructions - Pt was instruced [...] FOR A COUMADIN CHECK OF BLOOD. . Lower leg pain - r x [...] changes. Continue with current plan of treatment. stop using the effud ex on the [...] be able to use Synvisc for knee. Knee pain has improv ed - pt needs to continue with use of the voltaren gel, no change in treatment at this time, he is not interested in seeing an orthopedic surgeon until his knee pain is not controlled with the voltaren gel. Dementia - symptoms stable, but the director of diagnostic imaging of [employer] is stopping production of the [...] gel. Dementia - symptoms stable, but the director of diagnostic imaging of [employer] is stopping production of the [...] to assure normal liver response to medications. WEIGHT NEXT WEEK, CA LL INTO THE OFFICE WITH THE WEIGHT.. Alzheimer's Dementia - Pt with slowly progressive pattern. I have discussed with pt and family the prognosis of this disease state and the need for the family to anticipate further decline with behavior changes. Continue with current plan of treatment. Weight loss - discussed the need for [place] to not loose more weight. He reports that he has actually gained weight in the past few weeks since moving to [facility]. Knee pain - has improved with flector [...] follow up on cyst - for tomorrow. Try tiger balm to lo w back. [...] treatement. joint juice, glucosa mine - at [facility] ask about welnesse liquid Glucosamine and [...] removed. joint juice, glucosa mine - at [facility] ask about welnesse liquid Glucosamine and [...] Anne will need this lesion surgically removed. . Blood in ears - re moved the dried blood shard that is residual in left ear - no other treatment changes needed. . Hypertension - wel l controlled - [...] current plan of treatment. Skin lesion on denominational - pt to use flurouracil on lesions on denominational. OA of knees - pt to try [...] have his knee operated on at [facility], I have placed a phone call to Dr. Ballesteros - waiting on a call back discussed colonoscop y -patient not interested . [...]
--- OUTSIDE RECORDS SUMMARY | 2019-07-11 12:48 | XMS REPORT | CCD ---
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 forehead 07/29/2013 right baptist skin lesion Onset and Resolution ongoing 07/29/2013 [...] down to 130lbs but since moving to [place] has gained some weight back hypertension Quality [...] remembering names 01/11/2011 None memory loss 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 P ATIENT, LEVEL III Diagnosis: Otalgia, left ear[ICD10: H92.02] Nay Martinez MD, [facility] CPT-4: 70180 07/25/2018 ([id number]) 42428 EST. P ATIENT, LEVEL III Diagnosis: Otalgia, left ear[ICD10: H92.02] Nay Martinez MD, [facility] CPT-4: 91638 07/05/2018 ([id number]) 58203 EST. P ATIENT, LEVEL III Diagnosis: Otorrhagia, bilateral[ICD10: H92.23] Nay Martinez MD, [facility] CPT-4: 12143 06/26/2018 ([id number]) 82165 EST. P ATIENT, LEVEL III Diagnosis: Essential (primary) hypertension[ICD10: I10] Diagnosis: Slow transit constipation[ICD10: K59.01] Nay Martinez MD, [facility] CPT-4: 05258 03/27/2018 ([id number]) 14297 EST. P ATIENT, LEVEL III Diagnosis: Slow transit constipation[ICD10: K59.01] Diagnosis: Other hypotension[ICD10: I95.89] Nay Martinez MD, [facility] CPT-4: 15988 02/14/2018 ([id number]) 46020 EST. P ATIENT, LEVEL IV Diagnosis: Essential (primary) hypertension[ICD10: I10] Diagnosis: Alzheimer's disease with early onset[ICD10: G30.0] Diagnosis: Actinic keratosis[ICD10: L57.0] Nay Martinez MD, [facility] CPT-4: 03415 11/08/2017 ([id number]) 44463 EST. P ATIENT, LEVEL IV Diagnosis: Essential (primary) hypertension[ICD10: I10] Diagnosis: Mixed hyperlipidemia[ICD10: E78.2] Diagnosis: Alzheimer's disease with early onset[ICD10: G30.0] Nay Martinez MD, C CPT-4: 50216 08/09/2017 ([id number]) 87390 EST. P ATIENT, LEVEL IV Diagnosis: Essential (primary) hypertension[ICD10: I10] Diagnosis: Alzheimer's disease with early onset[ICD10: G30.0] Diagnosis: Mixed hyperlipidemia[ICD10: E78.2] Diagnosis: Pain in left knee[ICD10: M25.562] Nay Martinez MD, [facility] CPT-4: 40709 04/11/2017 ([id number]) 91417 EST. P ATIENT, LEVEL III Diagnosis: Essential (primary) hypertension[ICD10: I10] Diagnosis: Encounter for immunization[ICD10: Z23] Diagnosis: Alzheimer's disease with early onset[ICD10: G30.0] Nay Martinez MD, C CPT-4: 01619 01/25/2017 ([id number]) 72477 EST. P ATIENT, LEVEL III Diagnosis: Otalgia, left ear[ICD10: H92.02] Nay Martinez MD, [facility] CPT-4: 08953 12/21/2016 ([id number]) 77319 EST. P ATIENT, LEVEL IV Diagnosis: Essential (primary) hypertension[ICD10: I10] Diagnosis: Alzheimer's disease with early onset[ICD10: G30.0] Diagnosis: Abnormal weight loss[ICD10: R63.4] Nay Martinez MD, [facility] CPT- 4: 15006 12/01/2016 ([id number]) 84704 EST. P ATIENT, LEVEL IV Diagnosis: Essential (primary) hypertension[ICD10: I10] Diagnosis: Mixed hyperlipidemia[ICD10: E78.2] Nay Martinez MD, [facility] CPT- 4: 41306 10/25/2016 23940 EST. PATIENT, LEVEL IV Diagnosis: Essential (primary) hypertension[ICD10: I10] Diagnosis: Alzheimer's disease with early onset[ICD10: G30.0] Diagnosis: Pain in left knee[ICD10: M25.562] Diagnosis: Cyst of kidney, acquired[ICD10: N28.1] Nay Martinez MD, [facility] CPT-4: 72304 07/26/2016 ([id number]) 01909 EST. P ATIENT, LEVEL IV Diagnosis: Essential (primary) hypertension[ICD10: I10] Diagnosis: Alzheimer's disease with early onset[ICD10: G30.0] Rosa Martinez MD, [facility] CPT-4: 54167 04/26/2016 ([id number]) 69989 EST. P ATIENT, LEVEL IV Diagnosis: Essential (primary) hypertension[ICD10: I10] Diagnosis: Alzheimer's disease with early onset[ICD10: G30.0] Diagnosis: VACCIN FOR INFLUENZA[ICD10: Z23] Nay Martinez MD, [facility] CPT-4: 61254 01/27/2016 ([id number]) 74573 EST. P ATIENT, LEVEL IV Diagnosis: Essential (primary) hypertension[ICD10: I10] Diagnosis: Alzheimer's disease with early onset[ICD10: G30.0] Nay Martinez MD, [facility] CPT-4: 91201 10/27/2015 ([id number]) 23178 EST. P ATIENT, LEVEL IV Diagnosis: Essential (primary) hypertension[ICD10: I10] Diagnosis: Alzheimer's disease with early onset[ICD10: G30.0] Nay Martinez MD, [facility] CPT-4: 87376 06/30/2015 ([id number]) 65443 EST. P ATIENT, LEVEL IV Diagnosis: Essential (primary) hypertension[ICD10: I10] Diagnosis: Alzheimer's disease with early onset[ICD10: G30.0] Nay Martinez MD, [facility] CPT-4: 59564 03/31/2015 29227 EST. PATIENT, LEVEL III Diagnosis: Low back pain[ICD10: M54.5] Fern Martinez MD, [facility] CPT-4: 97756 03/17/2015 ([id number]) 74346 EST. P ATIENT, LEVEL IV Diagnosis: ESSENTIAL HYPERTENSION[ICD9: 401.9] Diagnosis: Encounter for long-term (current) use of anticoagulants[ICD9: V58.61] Diagnosis: Skin change[ICD9: 782.9] Diagnosis: Change in mole[ICD9: 216.9] Diagnosis: VACCIN FOR INFLUENZA[ICD9: V04.81] Nay Martinez MD, [facility] CPT- 4: 48217 01/20/2015 ([id number]) 66642 EST. P ATIENT, LEVEL IV Diagnosis: ESSENTIAL HYPERTENSION[ICD9: 401.9] Diagnosis: OSTEOARTHROSIS-MULT SITE[ICD9: 715.80] Diagnosis: Knee pain[ICD9: 719.46] Diagnosis: ENCNTR LONG-ANTICOAG USE[ICD9: V58.61] Nay Martinez MD, [facility] CPT-4: 44383 12/15/2014 ([id number]) 95925 EST. P ATIENT, LEVEL IV Diagnosis: ESSENTIAL HYPERTENSION[ICD9: 401.9] Diagnosis: OSTEOARTHROSIS-MULT SITE[ICD9: 715.80] Diagnosis: Knee pain[ICD9: 719.46] Nay Martinez MD, [facility] CPT-4: 68049 09/30/2014 ([id number]) 78240 EST. P ATIENT, LEVEL IV Diagnosis: Skin cancer[ICD9: 173.90] Diagnosis: ESSENTIAL HYPERTENSION[ICD9: 401.9] Diagnosis: ALZHEIMER'S DISEASE[ICD9: 331.0] Diagnosis: Knee pain[ICD9: 719.46] Nay Martinez MD, [facility] CPT-4: 89364 07/01/2014 ([id number]) 81684 EST. P ATIENT, LEVEL IV Diagnosis: ESSENTIAL HYPERTENSION[ICD9: 401.9] Diagnosis: Dysuria[ICD9: 788.1] Diagnosis: Knee pain, bilateral[ICD9: 719.46] Diagnosis: Osteoarthritis[ICD9: 715.90] Diagnosis: Dementia[ICD9: 294.8] Nay Martinez MD [facility] CPT-4: 93763 04/01/2014 ([id number]) 52658 EST. P ATIENT, LEVEL IV Diagnosis: ESSENTIAL HYPERTENSION[ICD9: 401.9] Diagnosis: VACCIN FOR INFLUENZA[ICD10: Z23] Diagnosis: HYPERLIPIDEMIA[ICD9: 272.4] Diagnosis: ALZHEIMER'S DISEASE[ICD9: 331.0] Nay Martinez MD [facility] CPT-4: 98091 01/13/2014 ([id number]) 02316 EST. P ATIENT, LEVEL IV Diagnosis: Dementia[ICD9: 294.8] Diagnosis: Alzheimer's dementia[ICD9: 331.0] Diagnosis: OSTEOARTHROSIS-MULT SITE[ICD9: 715.80] Diagnosis: ESSENTIAL HYPERTENSION[ICD9: 401.9] Nay Martinez MD [facility] CPT- 4: 80392 10/15/2013 ([id number]) 33687 EST. P ATIENT, LEVEL III Diagnosis: Knee pain, acute[ICD9: 719.46] Diagnosis: Osteoarthritis[ICD9: 715.90] Diagnosis: Gait instability[ICD9: 781.2] Nay Martinez MD, [facility] CPT-4: 83541 09/11/2013 ([id number]) 14985 EST. P ATIENT, LEVEL III Diagnosis: CELLULITIS OF FACE[ICD9: 682.0] Diagnosis: Esophageal reflux[ICD9: 530.81] Rosa Martinez MD, [facility] CPT- 4: 63459 08/22/2013 89501 EST. PATIENT, LEVEL II Diagnosis: CELLULITIS OF FACE[ICD9: 682.0] Nay Martinez MD [facility] CPT-4: 89367 08/08/2013 ([id number]) 07098 EST. P ATIENT, LEVEL III Diagnosis: Cellulitis of baptist[ICD9: 682.0] Nay Martinez MD [facility] CPT-4: 53957 07/29/2013 ([id number]) 61298 EST. P ATIENT, LEVEL IV Diagnosis: ESSENTIAL HYPERTENSION[SNOMED: 22702754] Diagnosis: ALZHEIMER'S DISEASE[ICD9: 331.0] Diagnosis: INTEGUMENT TISS SYMP NEC[ICD9: 782.9] Diagnosis: JOINT PAIN-L/LEG[ICD9: 719.46] [facility] CPT-4: 67112 06/25/2013 ([id number]) 20340 EST. P ATIENT, LEVEL IV Diagnosis: ESSENTIAL HYPERTENSION[SNOMED: 86190044] Diagnosis: ACTINIC KERATOSIS[ICD9: 702.0] Diagnosis: Skin cancer[ICD9: 173.90] Diagnosis: COUGH[ICD9: 786.2] Diagnosis: ACUTE BRONCHITIS[ICD9: 466.0] [facility] CPT-4: 07369 03/26/2013 41564 EST. PATIENT, LEVEL IV Diagnosis: ESSENTIAL HYPERTENSION[SNOMED: 38354425] Diagnosis: ALZHEIMER'S DISEASE[ICD9: 331.0] Diagnosis: JOINT PAIN-L/LEG[ICD9: 719.46] Diagnosis: MUSCSKEL SYMPT LIMB NEC[ICD9: 729.89] [facility] CPT-4: 94152 11/20/2012 ([id number]) 64458 EST. P ATIENT, LEVEL IV Diagnosis: ESSENTIAL HYPERTENSION[SNOMED: 91677024] Diagnosis: ALZHEIMER'S DISEASE[ICD9: 331.0] Diagnosis: ENCNTR LONG-ANTICOAG USE[ICD9: V58.61] Diagnosis: Skin change[ICD9: 782.9] [facility] CPT-4: 28957 08/21/2012 ([id number]) 00148 EST. P ATIENT, LEVEL III Diagnosis: SUBDURAL HEMORRHAGE[ICD9: 432.1] [facility] CPT-4: 71837 06/28/2012 ([id number]) 29597 EST. P ATIENT, LEVEL IV Diagnosis: ESSENTIAL HYPERTENSION[SNOMED: 26916682] Diagnosis: Subdural hematoma[ICD9: 432.1] Diagnosis: Encounter for long-term (current) use of anticoagulants[ICD9: V58.61] [facility] CPT-4: 13589 05/21/2012 ([id number]) Patient adm itted to the hospital from clinic (NO CHARGE) Diagnosis: Lower extremity weakness[ICD9: 729.89] Diagnosis: FALL AGAINST OBJECT[ICD9: E888.1] Diagnosis: Gait instability[ICD9: 781.2] [facility] CPT-4: 01357R 04/26/2012 ([id number]) 55392 EST. P ATIENT, LEVEL IV Diagnosis: ESSENTIAL HYPERTENSION[SNOMED: 81031471] Diagnosis: ALZHEIMER'S DISEASE[ICD9: 331.0] Diagnosis: HYPERLIPIDEMIA[ICD9: 272.4] [facility] CPT-4: 14779 02/14/2012 ([id number]) 87017 EST. P ATIENT, LEVEL IV Diagnosis: ALZHEIMER'S DISEASE[ICD9: 331.0] Diagnosis: Abnormal loss of weight[ICD9: 783.21] Diagnosis: Knee pain, bilateral[ICD9: 719.46] Diagnosis: ESSENTIAL HYPERTENSION[SNOMED: 83484423] [facility] CPT-4: 26404 10/11/2011 ([id number]) 32982 EST. P ATIENT, LEVEL IV Diagnosis: ESSENTIAL HYPERTENSION[SNOMED: 11279680] Diagnosis: JOINT PAIN-L/LEG[ICD9: 719.46] Diagnosis: Thrush[ICD9: 112.0] Diagnosis: Abdominal pain[ICD9: 789.00] Nay Martinez MD, [facility] CPT-4: 43660 07/12/2011 ([id number]) 23690 EST. P ATIENT, LEVEL III Diagnosis: Knee pain[ICD9: 719.46] Diagnosis: OSTEOARTHROSIS-MULT SITE[ICD9: 715.80] [facility] CPT-4: 27037 05/11/2011 ([id number]) 08632 EST. P ATIENT, LEVEL IV Diagnosis: Alzheimer's dementia[ICD9: 331.0] Diagnosis: ESSENTIAL HYPERTENSION[SNOMED: 06564627] Nay [facility] CPT-4: 45388 04/12/2011 45642 EST. PATIENT, LEVEL IV Diagnosis: ESSENTIAL HYPERTENSION[SNOMED: 69638049] Diagnosis: HYPERLIPIDEMIA[ICD9: 272.4] Diagnosis: VACCIN FOR INFLUENZA[ICD9: V04.81] Diagnosis: Dementia[ICD9: 294.8] [facility] CPT-4: 22567 01/11/2011 Plan of Care Planned Activity Notes C odes Status Date Visit Plan: Blood in ears - removed the dried blood shard that is residual in left ear - no other treatment changes needed. 07/25/2018 Patient Education: Patient Medication Summary Completed [...] 2 wks 07/05/2018 Appointment: Nay Martinez WPtel: [facility]7 [facility] (15 min) Moderate 07/05/2018 Patient Education: Patient Medication Summary Completed 07/05/2018 Visit Plan: Nasal congestion - rx f or flonase to the [place] [facility] - rx was called to [facility]. Blood in ears - due to pt using qtips aggressively - recommended pt to use mineral oil in ears nightly x 10 days - return to clinic in 10 days for my evaluation to see if there are any residual lesions in his ears once the dried blood is out of the ear canals. 06/26/2018 Appointment: [phone] [place] (15 min) Moderate 06/26/2018 [...] blood pressure readings at home. 03/27/2018 Appointment: Melissa Martinezy WPtel: [facility] [place] (15 min) Moderate 03/27/2018 Patient Education: Patient Medication Summary Completed 03/27/2018 Appointment: Nay Martinez WPtel: [phone] [facility] [place] (15 min) Moderate 03/07/2018 Appointment: Melissa Martinezy WPtel[facility] [place] (15 min) Moderate 02/21/2018 [...] his pressures on Monday morning. 02/14/2018 Appointment: Melissa Martinezy WPtel: [facility] [place] (15 min) Moderate 02/14/2018 [...] current medications. 11/08/2017 Appointment: Nay Martinez WPtel: [facility]8 [facility] [place] (15 min) Moderate 11/08/2017 Patient Education: [...] 08/11/2017 Appointment: Rosa Aguilar [phone] [phone] [facility] - Annual Wellness Visit 08/11/2017 Patient [...] fat intake. 08/09/2017 Appointment: [phone] (15 min) Moderate 08/09/2017 Patient [...] to medications. 04/11/2017 Appointment: Nay Martinez WPtel: [phone] [facility]66[facility] (15 min) Moderate 04/11/2017 Patient Education: Patient [...] memory loss. 01/25/2017 Appointment: Nay Martinez WPtel: [facility]5 [facility] (15 min) Moderate 01/25/2017 Patient Education: Patient Medication Summary Completed 01/25/2017 Appointment: Nay Martinez WPtel: [facility]6 [facility] (15 min) Moderate 01/24/2017 Visit Plan: Dried bloody debris in left ear - removed with alligator forceps, ear currette - pt to use mineral oil in the ear. 12/21/2016 Appointment: Nay Martinez WPtel: [phone] [facility] (15 min) Moderate 12/21/2016 Patient Education: Patient [...] fat intake. 12/01/2016 Appointment: Nay Martinez WPtel: [phone] [facility] (15 min) Moderate 12/01/2016 Patient Education: [...] medications. 10/25/2016 Appointment: Nay Martinez WPtel: [phone] [facility] (15 min) Moderate 10/25/2016 Patient Education: Patient [...] home. 08/05/2016 Appointment: Rosa Aguilar WPtel: [phone] [facility] [phone] [facility] - Annual Wellness Visit 08/05/2016 Patient [...] for tomorrow. 07/26/2016 Appointment: Nay Martinez WPtel: [facility]0 [facility] [place] (15 min) Moderate 07/26/2016 Patient [...] of treatment. 04/26/2016 Appointment: Rosa Aguilar WPtel: [facility]2 [facility] [phone] (15 min) Moderate 04/26/2016 Patient Education: Patient [...] treatment. 01/27/2016 Appointment: Nay Martinez WPtel: [phone] [facility] (15 min) Moderate 01/27/2016 Patient Education: Patient [...] of treatment. 10/27/2015 Appointment: Nay Martinez WPtel: [address] [place], [place] [phone] (15 min) Moderate 10/27/2015 Patient Education: Patient [...] of treatment. 06/30/2015 Appointment: Nay Martinez WPtel: [facility]2 [facility] [place] (15 min) Moderate 06/30/2015 Appointment: [phone] [facility] (15 min) Moderate 06/30/2015 Patient Education: Patient [...] treatment. 03/31/2015 Appointment: [facility]el[phone] (15 min) Moderate 03/31/2015 Patient Education: Patient [...] surgically removed. 01/20/2015 Appointment: Nay Martinez WPtel: [facility]6 [facility] (15 min) Moderate 01/20/2015 Patient Education: Patient Medication Summary Completed 01/20/2015 Patient Education: Hypertension Completed 01/20/2015 Care Plan: Referral Order SNOMED-CT : [id number] Ordered 01/20/2015 Appointment: Nay Martinez WPtel: [facility]3 [facility] (15 min) Moderate 12/18/2014 Visit Plan: [...] and 3.5. 12/15/2014 Appointment: Nay Martinez WPtel: [facility]6 [facility] (15 min) Moderate 12/15/2014 Patient Education: [...] to have his knee operated on at [facility], I have placed a phone call to Dr. Ballesteros - waiting on a call back 09/30/2014 Appointment: Nay Martinez WPtel: [facility]6 [facility] Follow up 09/30/2014 Patient Education: Patient Medication [...] - will hopefully be able to use octoScopec for knee. 07/01/2014 Appointment: [facility]el[phone] Follow [facility] 07/01/2014 Patient Education: Patient Medication Summary Completed 07/01/2014 Patient Education: Hypertension Completed 07/01/2014 Care Plan: Referral Order SNOMED-CT : [id number] Ordered 07/01/2014 Visit Plan: Hypertension - well [...] treatment. 04/01/2014 Appointment: [facility]ay [facility]Ptel[phone] Follow up 04/01/2014 Patient Education: [...] of treatment. 01/13/2014 Appointment: Nay Martinez WPtel: [address] [place] [address] Follow up 01/13/2014 Patient Education: Patient Medication Summary Completed 01/13/2014 Patient Education: Hypertension Completed 01/13/2014 Care Plan: COMPLETE CBC AUTOMATED LOINC : 78909-2 Ordered 01/13/2014 Visit Plan: Knee pain has improved - pt needs to continue with use of the voltaren gel, no change in treatment at this time, he is not interested in seeing an orthopedic surgeon until his knee pain is not controlled with the voltaren gel. Dementia - symptoms stable, but the collections attorney of [employer] is stopping production of the [...] in medications. 10/15/2013 Appointment: Nay Martinez WPtel: [address] [place] [address] Follow up 10/15/2013 Patient Education: Patient Medication Summary Completed 10/15/2013 Patient Education: Hypertension Completed 10/15/2013 Appointment: Nay Martinez WPtel: [address] [place] [address] [place] Follow up 10/02/2013 Visit Plan: Lower leg pain - rx for voltaren gel to be used on right knee four times daily to alleviate pain in knee. Pt to use walker - RX for rolator walker. 09/11/2013 Appointment: Nay Martinez WPtel: [phone] [facility] Other 09/11/2013 Patient Education: Patient Medication Summary [...] current treatement. 08/22/2013 Appointment: Rosa Aguilar WPtel: [address] [place], [place] [phone] Follow up 08/22/2013 Patient Education: Patient Medication Summary Completed 08/22/2013 Visit Plan: Qpetvmsthxa-ssxrfkxs-ql ntinue treatment-return in 2 weeks for follow up 08/08/2013 Appointment: Rosa Aguilar WPtel: [address] [place] [address] Follow up 08/08/2013 Patient Education: Patient Medication [...] current plan of treatment. Skin lesion on baptist - pt to use flurouracil on lesions on baptist. OA of knees - pt to try voltaren gel. 06/25/2013 Appointment: Nay Martinez WPtel: [address] [place], [place] [phone] Follow up 06/25/2013 Patient Education: Patient Medication [...] acute conerns. 03/26/2013 Appointment: Nay Martinez WPtel: [facility] Follow up 03/26/2013 Patient Education: Patient Medication Summary Completed 03/26/2013 Patient Education: Hypertension Completed 03/26/2013 Appointment: Rosa Aguilar WPtel: [facility]5 [facility] [phone] Nurse Visit 01/14/2013 Patient Education: Patient Medication Summary Completed 01/14/2013 Visit Plan: Wound Instructions - Pt was instruced to keep the wound clean, wash with antibacterial soap, use triple antibiotic ointment, call if redness, pustular drainage, or any other acute conerns. 12/25/2012 Appointment: Rosa Aguilar WPtel: [address] [place], [place] [phone] Surgical Procedure 12/25/2012 Patient Education: Patient Medication [...] be weak. 11/20/2012 Appointment: Nay Martinez WPtel: [facility]5 [facility] Follow up 11/20/2012 Patient Education: Patient Medication [...] every days. 08/21/2012 Appointment: Nay Martinez WPtel: [facility] Follow up 08/21/2012 Patient Education: Hypertension Completed 08/21/2012 Patient Education: Patient Medication Summary Completed 08/21/2012 Visit Plan: Subdural hematoma-recen t fall-decreased in size with tiny acute component-plan to repeat CT in 2 weeks Low back ejpp-tjexofnnpjf-WZ joint Injection today in the office - Pt was given post - injection instructions. The pt has been advised to use antiinflammatories post injection today, ice to the injected site, call if redness, warmth, or increased pain occurs at the site of injection. 06/28/2012 Appointment: Rosa Aguilar [facility]Ptel[facility] [address] [phone] Other 06/28/2012 Patient Education: Patient Medication Summary [...] this week. 05/21/2012 Appointment: Nay Martinez WPtel: [facility]5 [facility]66[facility] Hospital follow up 05/21/2012 Patient Education: Patient Medication Summary Completed 05/21/2012 Patient Education: Hypertension Completed 05/21/2012 Appointment: Nay Martinez WPtel: [address] [place], [place] [address] Follow up 05/15/2012 Visit Plan: Fall-sudden onset of ri ght lower extremity weakness-Dr Martinez in to evaluate patient-plan to admit for observation and further work up which includes a STAT CT of the head and labs. Patient and verbalize understanding. 04/26/2012 Appointment: Nay Martinez WPtel: [address] [place] [address] balance problem, fall 1 month ago Other [...] treatment. 02/14/2012 Appointment: Nay Martinez WPtel: [phone] [place] [id number] Established Patient Preventative visit 02/14/2012 Patient Education: [...] Weight loss - discussed the need for [place] to not loose more weight. He reports that he has actually gained weight in the past few weeks since moving to [facility]. Knee pain - has improved with flector patches, no change in current treatment. HTN - controlled - no change in medications. I have encouraged Omid to check his blood pressures oc casionally at home and bring in his list at his next office visit. 10/11/2011 Appointment: Nay Martinez WPtel: [phone] [facility] [place] [address] 10/11/2011 Patient Education: Patient Medication Summary Completed [...] OF BLOOD. 07/12/2011 Appointment: Nay Martinez WPtel: [facility] Other 07/12/2011 Patient Education: Patient Medication Summary Completed 07/12/2011 Patient Education: High Blood Pressure: Essential Hypertension Completed 07/12/2011 Visit Plan: Knee pain- uncontrolled - but improving, recommend watchful waiting and to use FLECTOR PATCH, 1/4 of a patch and change twice daily.. Call if the pain worsens. 05/11/2011 Appointment: Nay Martinez WPtel: [address] [place] [address] Other 05/11/2011 Patient Education: Patient Medication Summary [...] in medications. 04/12/2011 Appointment: Nay Martinez WPtel: [address] [place] [address] Other 04/12/2011 Patient Education: Patient Medication Summary [...] time. 01/11/2011 Appointment: [facility]el[phone] [facility] 01/11/2011 Patient Education: Patient Medication Summary Completed 01/11/2011 Referral: Cris Egan Referral Relationship Referral: Dayron Ballesteros Referral Appointment Requested Referral: Kings Valles [facility]Ptel[phone] [facility] [place] Referral Relationship Referral: Carl Yu Referral [...] gel. Dementia - symptoms stable, but the collections attorney of [employer] is stopping production of the [...] gel. Dementia - symptoms stable, but the collections attorney of [employer] is stopping production of the [...] days and call with his pressures on Bertin morning. use 2 ML of mineral oil [...] congestion [facility]. Blood in ears - due to pt [...] repeat CT in 2 weeks Low back lmpf-ajuklqqauyw-XT joint Injection today in the office - Pt was given post - injection instructions. The pt has been advised to use antiinflammatories post injection today, ice to the injected site, call if redness, warmth, or increased pain occurs at the site of injection. . Celllulitis-[facility]-continue treatment-return in 2 weeks for follow up . Blood in ears - re moved the dried blood shard that is residual in left ear - no other treatment changes needed. [facility] juice[facility] wel[facility]se liquid Glucosamine and chondroitin. increase the omeprazole to one pill twice daily. THursday at 10AM - Dr. Gigi Colbert across the street from Dr. aVlles's office - in Dr. Santiago office - [...] removed. joint juice, glucosa mine - [facility] ask about welnesse liquid Glucosamine and chondroitin. [...] current plan of treatment. Skin lesion on [facility] - pt to use flurouracil on lesions on [employer]. OA of knees - pt to try [...] to have his knee operated on at [facility], I have placed a phone [...] Weight loss - discussed the need for [place] to not loose more weight. He reports that he has actually gained weight in the past few weeks since moving to [facility]. Knee pain - has improved [...]
--- OUTSIDE RECORDS SUMMARY | 2019-07-11 12:50 | XMS REPORT | CCD ---
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 04/11/[address]: 198762905 Nonsmoker 04/11/2011 Has the patient ever used [...] ICD-9: 530.81 Active 08/22/2013 Unknown Cellulitis of baptism ICD-9: 682.0 Active 07/29/2013 Unknown ACUTE BRONCHITIS [...] reflux ICD-9: 530.81 08/22/2013 Active Cellulitis of baptism ICD-9: 682.0 07/29/2013 Active ACUTE BRONCHITIS ICD-9: [...] Reli ef 50 mcg/actuation nasal spray,suspension RxNorm: 5809426 1 [place] NASAL BID 06/26/2018 07/25/2018 Active Namenda 10 mg tablet RxNorm: 855435 1 Tablet(s) PO BID 02/07/2018 09/04/2018 Active omeprazole 20 mg cap mino,delayed release RxNorm: 946766 1 Capsule(s) PO BID 02/07/2018 09/04/2018 Ac tive omeprazole 20 mg cap mino,delayed release RxNorm: 289471 1 Capsule(s) PO BID 01/25/2018 02/06/2018 In active ropinirole 1 mg tablet RxNorm: 849739 1 Tablet(s) PO daily 01/17/2018 07/10/2019 Active Zyrtec 10 mg tablet RxNorm: 4179578 1 Tablet(s) PO daily 11/08/2017 06/05/2018 Inactive atorvastatin 20 mg t ablet RxNorm: 244561 1 Tablet(s) PO daily 08/09/2017 03/06/2018 Inactive Namenda 10 mg tablet RxNorm: 143230 1 Tablet(s) PO BID 07/24/2017 10/21/2017 Inactive Insurance denied Namenda XR 28mg Namenda 10 mg tablet RxNorm: 939045 1 Tablet(s) PO BID 07/24/2017 07/23/2017 Inactive Insurance denied Namenda XR 28mg Cerefolin NAC 600 mg -2 mg-6 mg tablet RxNorm: TAKE ONE CAPLET BY MOUTH ON E TIME DAILY 07/11/2017 07/05/2018 Inactive Aricept 10 mg tablet RxNorm: 198211 1 Tablet(s) PO daily 06/01/2017 05/26/2018 Inactive Aricept 10 mg tablet RxNorm: 174210 1 Tablet(s) PO daily 06/01/2017 05/31/2017 Inactive Cerefolin NAC 600 mg -2 mg-6 mg tablet RxNorm: TAKE ONE TABLET BY MOUTH ON E TIME DAILY 07/06/2016 06/30/2017 Inactive fluorouracil 5 % top ical cream RxNorm: 356943 1 Application TOP luz ly use daily x 1 week, then stop use, let tissue heal x1wk, if still dry patchy, then restart the medication x 1 week 01/29/2016 02/07/2016 Inactive omeprazole 20 mg cap mino,delayed release RxNorm: 993008 1 Capsule(s) PO BID 01/20/2015 06/18/2015 In active Bactroban 2 % topica l cream RxNorm: 810973 1 Application TOP BID as needed 12/18/2014 03/30/2015 In active Cerefolin NAC 600 mg -2 mg-6 mg tablet RxNorm: 1 Tablet(s) PO daily 07/01/2014 06/25/2015 Inactive [SAVINGS FOR NON-COVERED DRUGS -- BIN:00 [id number], PCN: [id number], Group: XXXXX, ID# [id number], Questions: . THIS IS NOT INSURANCE.] Kenalog 40 mg/mL tess pension for injection RxNorm: 3615330 Milliliter(s) Inj 04/01/2014 04/01/2014 In active Namenda XR 7 mg-14 m g-21 mg-28 mg capsule,sprinkle,ER 24hr,dose pack RxNorm: 844287 1 Capsule(s) PO daily 10/15/2013 11/13/2013 Inactive Namenda XR 28 mg cap mino sprinkle,ER 24hr RxNorm: 351683 1 Capsule(s) PO daily 10/15/2013 07/23/2017 In active Bactrim DS 800 mg-16 0 mg tablet RxNorm: 498547 1/2 Tablet(s) PO dale y 10/15/2013 03/30/2015 In active Voltaren 1 % topical gel RxNorm: 115856 4 Gram(s) TOP QID 09/11/2013 01/08/2014 Inactive dispense 5 tubes Bactroban 2 % topica l cream RxNorm: 916809 1 Application TOP BID 07/29/2013 08/04/2013 Inactive ciprofloxacin 500 mg tablet RxNorm: 465371 1 Tablet(s) PO BID 07/29/2013 08/04/2013 Inactive fluorouracil 5 % top ical cream RxNorm: 054005 1 Application TOP luz ly use daily x 1 week, then stop use, let tissue heal x1wk, if still dry patchy, then restart the medication x 1 week 06/25/2013 07/04/2013 Inactive levofloxacin 500 mg tablet RxNorm: 884800 1 Tablet(s) PO daily 03/26/2013 03/30/2013 Inactive Cerefolin NAC 600 mg -2 mg-6 mg tablet RxNorm: 1 Tablet(s) PO daily 11/05/2012 10/30/2013 Inactive Kenalog 40 mg/mL Tess p for Injection RxNorm: 8678759 1 Milliliter(s) Inj 06/29/2012 06/29/2012 In active Exelon 9.5 mg/24 ricki r Transderm 24 hr Patch RxNorm: 201684 Patch 24 hr TD APPLY 1 PATCH DAILY DIRECTED 04/25/2012 08/20/2012 Inactive omeprazole 20 mg cap mino,delayed release RxNorm: 755665 1 Capsule(s) PO daily 04/09/2012 04/03/2013 In active omeprazole 20 mg cap mino,delayed release RxNorm: 978636 Capsule(s) PO TAKE 1 CAPSULE BY MOUTH EVERY DAY 04/09/2012 01/19/2015 Inactive warfarin 4 mg tablet RxNorm: 673492 1 Tablet(s) PO 11/28/2011 11/21/2012 Inactive TAKE 1 TABLET BY MOUTH DAILY Cerefolin NAC 600 mg -2 mg-6 mg tablet RxNorm: 1 Tablet(s) PO daily 11/28/2011 11/04/2012 Inactive warfarin 4 mg tablet RxNorm: 864272 Tablet(s) PO 08/07/2011 11/27/2011 Inactive TAKE 1 TABLET BY MOUTH DAILY Flector 1.3 % Adhesi ve Patch RxNorm: 269969 1 Application TOP BID 07/12/2011 02/06/2012 Inactive levofloxacin 500 mg Tab RxNorm: 041247 1 Tablet(s) PO daily 07/12/2011 07/16/2011 Inactive nystatin 100,000 uni t/mL Oral Susp RxNorm: 449721 3 Milliliter(s) BUCC TID 07/12/2011 07/21/2011 In active lisinopril 20 mg Tab RxNorm: 615408 1 Tablet(s) PO daily 04/12/2011 04/05/2012 Inactive TAKE ONE TABLET BY MOUTH DAILY;Patient requests 90 day supply omeprazole 20 mg cap mino,delayed release RxNorm: 845192 1 Capsule(s) PO daily 04/12/2011 04/05/2012 In active Namenda 10 mg Tab RxNorm: 575987 1 Tablet(s) PO BID 04/12/2011 04/05/2012 Inactive metoprolol succinate ER 50 mg 24 hr Tab RxNorm: 916000 1 Tablet(s) PO daily 04/12/2011 04/05/2012 In active ropinirole 1 mg Tab RxNorm: 099370 1 Tablet(s) PO daily 04/12/2011 04/05/2012 Inactive TAKE 1 TABLET BY MOUTH EVERY NIGHT AT BE DTIME;Patient requests 90 day supply Bactrim DS 800 mg-16 0 mg Tab RxNorm: 099384 1/2 Tablet(s) PO daily 04/12/2011 04/05/2012 Inactive Exelon 9.5 mg/24 ricki r Transderm 24 hr Patch RxNorm: 369677 1 Patch TD daily 04/12/2011 04/05/2012 In active melatonin 3 mg Tab RxNorm: 136844 1 Tablet(s) PO QHS 04/11/2011 No Stop Date Active Fish Oil 900 mg-1,40 0 mg Cap, Delayed Release RxNorm: 1 Capsule(s) PO BID 04/11/2011 10/27/2015 In active Tylenol Arthritis 65 0 mg Tab RxNorm: 8172433 2 Tablet(s) PO QAM 04/11/2011 10/27/2015 Inactive Bactrim DS 800 mg-16 0 mg Tab RxNorm: 473245 1/2 Tablet(s) PO daily 04/11/2011 04/11/2011 Inactive lisinopril 20 mg Tab RxNorm: 652873 Tablet(s) PO 04/07/2011 04/11/2011 Inactive TAKE ONE TABLET BY MOUTH DAILY;Patient requests 90 day supply ropinirole 1 mg Tab RxNorm: 097638 Tablet(s) PO 04/07/2011 04/11/2011 Inactive TAKE 1 TABLET BY MOUTH EVERY NIGHT AT BEDTIME;Patient requests 90 day supply lisinopril 20 mg Tab RxNorm: 012934 1 Tablet(s) PO daily 04/06/2011 04/06/2011 Inactive ropinirole 1 mg Tab RxNorm: 017805 1 Tablet(s) PO daily 04/06/2011 04/06/2011 Inactive Influenza Virus Vacc ine 0.5 mL RxNorm: IM 01/11/2011 01/11/2011 Inactive Osteo Bi-Flex Triple Strength RxNorm: 2 PO daily No S tart Date Active Bactrim DS 800 mg-16 0 mg tablet RxNorm: 581318 1/2 Tablet(s) PO dale y No Start Date Active isosorbide mononitra te ER 30 mg tablet,extended release 24 hr RxNorm: 717437 1 Tablet(s) PO daily No Start Date Active Vitamin B-12 5,000 m cg/mL sublingual drops RxNorm: 7228120 1 Milliliter(s) SL d aily No Start Date Active Tylenol Extra Streng th 500 mg tablet RxNorm: 653624 2 Tablet(s) PO BID No Start Date Active aspirin 81 mg Tab, D elayed Release RxNorm: 525111 1 Tablet(s) PO daily No Start Date Active warfarin 4 mg tablet RxNorm: 020382 1 Tablet(s) PO daily No Start Date Active Centrum Silver Oral RxNorm: Oral No Start Date Active lisinopril 20 mg tablet RxNorm: 791871 1 Tablet(s) PO daily No Start Date Active Fish Oil 300 mg-1,00 0 mg capsule RxNorm: 810590 1 Capsule(s) PO daily No Start Date Active Calcium 500 + D (D3) Oral RxNorm: Oral No Start D ate Active Exelon 13.3 mg/24 ho ur Transderm 24 hr Patch RxNorm: 4133294 TD No Start Date Active metoprolol succinate ER 50 mg tablet,extended release 24 hr RxNorm: 091100 1 Tablet(s) PO daily No Start Date Active Cerefolin NAC 600 mg -2 mg-6 mg tablet RxNorm: 1 Tablet(s) PO daily No Start Date 11/27/2011 Inactive Lipitor 40 mg tablet RxNorm: 770637 1 Tablet(s) PO daily ordered by dr broussard No Start Date 08/08/2017 Inactive lisinopril 20 mg Tab RxNorm: 995968 1 Tablet(s) PO daily No Start Date 04/05/2011 Inactive hydrocodone-acetamin ophen 5 mg-325 mg tablet RxNorm: 6911059 1 Tablet(s) PO BID No Start Date 01/19/2015 Inactive omeprazole 20 mg Cap , Delayed Release RxNorm: 141510 1 Capsule(s) PO daily No Start Date 04/11/2011 Inactive metoprolol succinate ER 50 mg 24 hr Tab RxNorm: 202630 1 Tablet(s) PO daily No Start Date 04/11/2011 Inactive Exelon 9.5 mg/24 ricki r Transderm 24 hr Patch RxNorm: 929600 1 Patch TD daily No Start Date 04/11/2011 Inactive warfarin 4 mg Tab RxNorm: 520218 1 Tablet(s) PO daily No Start Date 08/06/2011 Inactive multivitamin Oral RxNorm: Oral No Start Date 07/26/2016 Inactive melatonin 3 mg Tab RxNorm: 557514 Oral No Start Date 04/10/2011 Inactive ropinirole 1 mg tablet RxNorm: 160862 1 Tablet(s) PO daily No Start Date 01/16/2018 Inactive iron 134 mg (27 mg i iron) Tab RxNorm: 436727 1 Tablet(s) PO daily No Start Date 10/26/2015 Inactive Fish Oil 900 mg-1,40 0 mg Cap, Delayed Release RxNorm: 1 Capsule(s) PO daily No Start Date 04/10/2011 Inactive Bactrim DS 800 mg-16 0 mg Tab RxNorm: 269071 Oral No S tart Date 04/10/2011 Inactive metoprolol tartrate 50 mg Tab RxNorm: 566331 1 Tablet(s) PO daily No Start Date 04/10/2011 Inactive Tylenol Arthritis 65 0 mg Tab RxNorm: 5974731 Oral No Start Date 04/10/2011 Inactive Namenda 10 mg Tab RxNorm: 688297 1 Tablet(s) PO BID No Start Date 04/11/2011 Inactive ropinirole 1 mg Tab RxNorm: 208466 1 Tablet(s) PO daily No Start Date 04/05/2011 Inactive Medication Administered Medication Codes Instruc tions Start Date Status Kenalog 40 mg/mL suspension for injection RxNorm: 3081360 Milliliter 04/01/2014 No longer Active Kenalog 40 mg/mL Susp for Injection RxNorm: 6262259 1Milliliter 06/29/2012 N o longer Active Influenza [...] Otalgia, left ear ICD-10: H92.02 ICD-9: 388.70 07/05/2018 Otorrhagia, bilateral ICD-10: H92.23 ICD-9: 388.69 06/26/2018 [...] Visit Reason For Visit Effective Dates Notes earache 07/05/2018 earache 06/26/2018 blood pressure followup [...] Item Item Code Result Date Comp Metabolic Wrb278 NA 143 mEq/L 08/08/2017 Comp Metabolic Cbx211 K 5.3 mEq/L 08/08/2017 Comp Metabolic Xev931 CL 112 mEq/L 08/08/2017 Comp Metabolic Hlc354 CO2 27.0 mEq/L 08/08/2017 Comp Metabolic Age536 AN ION GAP 9 08/08/2017 Comp Metabolic Wkb733 GL UCOSE 88 mg/dL 08/08/2017 Comp Metabolic Elp522 Cr eat 1.1 mg/dL 08/08/2017 Comp Metabolic Ycp528 eG FR 71 ml/min/1.73m2 08/08 Comp Metabolic Bdm168 BUN 26 mg/dL 08/08/2017 Comp Metabolic Fxs725 B/ C Ratio 24.5 Ratio 08/08/2017 Comp Metabolic Vjs654 CA LCIUM 9.0 mg/dL 08/08/2017 Comp Metabolic Qmi603 AL K PHOS 49 U/L 08/08/2017 Comp Metabolic Qye201 T(SGOT) 32 U/L 08/08/2017 Comp Metabolic Pvf472 AL T(SGPT) 25 U/L 08/08/2017 Comp Metabolic Byj462 BI LI T 0.7 mg/dL 08/08/2017 Comp Metabolic Lof112 AL BUMIN 4.2 g/dL 08/08/2017 Comp Metabolic Wrq926 TP RO 6.0 g/dL 08/08/2017 Comp Metabolic Zek586 GL OB 1.9 g/dL 08/08/2017 Comp Metabolic Imn038 A/ G Ratio 2.2 Ratio 08/08/2017 Comp Metabolic Hzj717 Os mo 289 mOsmo 08/08/2017 Lipid Ord30 CHOL 110 mg/dL 08/08/2017 Lipid Ord30 HDL 57.0 mg/dl 08/08/2017 Lipid Ord30 TRIG 83 mg/dL 08/08/2017 Lipid Ord30 LDL 36 mg/dL 08/08/2017 Lipid Ord30 C/HDL 1.9 Ratio 08/08/2017 Comp Metabolic Rmc007 NA 141 mEq/L 01/28/2016 Comp Metabolic Pkp839 K 4.5 mEq/L 01/28/2016 Comp Metabolic Ulc080 CL 111 mEq/L 01/28/2016 Comp Metabolic Fft981 CO2 27.0 mEq/L 01/28/2016 Comp Metabolic Kln333 AN ION GAP 8 01/28/2016 Comp Metabolic Lmt177 GL UCOSE 88 mg/dL 01/28/2016 Comp Metabolic Lac670 Cr eat 1.1 mg/dL 01/28/2016 Comp Metabolic Fsq484 eG FR 69 ml/min/1.73m2 01/27 Comp Metabolic Ufw930 BUN 23 mg/dL 01/28/2016 Comp Metabolic Syg701 B/ C Ratio 21.3 Ratio 01/28/2016 Comp Metabolic Tmm683 CA LCIUM 9.0 mg/dL 01/28/2016 Comp Metabolic Wct351 AL K PHOS 48 U/L 01/28/2016 Comp Metabolic Awb717 T(SGOT) 28 U/L 01/28/2016 Comp Metabolic Cyh237 AL T(SGPT) 20 U/L 01/28/2016 Comp Metabolic Fcb183 BI LI T 0.8 mg/dL 01/28/2016 Comp Metabolic Mfs711 AL BUMIN 4.0 g/dL 01/28/2016 Comp Metabolic Gin751 TP RO 6.0 g/dL 01/28/2016 Comp Metabolic Yao515 GL OB 2.0 g/dL 01/28/2016 Comp Metabolic Nkl332 A/ G Ratio 2.0 Ratio 01/28/2016 Comp Metabolic Bsk817 Os mo 284 mOsmo 01/28/2016 Lipid Ord30 [...] 34.5 pg 01/28/2016 Cbc With Differential Ord2 [place]% 10.0 % 01/28/2016 Cbc With Differential Ord2 [...] 1.17 K/ul 01/28/2016 Cbc With Differential Ord2 [place] ABS# 0.6 K/ul 01/28/2016 Cbc With Differential Ord2 Eos ABS# 0.1 K/ul 01/28/2016 Cbc With Differential Ord2 Baso ABS# 0.0 K/ul 01/28/2016 Total Psa Ord10 PSA 2.96 ng/mL 01/28/2016 Pt Grm6475 PT 25.8 seconds 08/07/2015 Pt Oxt2985 INR 2.5 08/07/2015 Pt Ste3061 Low Intensity - 1.5-2.0 08/07/2015 Pt Wwi6488 Mod intensity - 2.0-3.0 08/07/2015 Pt Huv0840 Hi intensity - 3.0-4.0 08/07/2015 Lipid Ord30 CHOL 102 mg/dL 08/07/2015 Lipid Ord30 HDL 50.0 mg/dl 08/07/2015 Lipid Ord30 TRIG 73 mg/dL 08/07/2015 Lipid Ord30 LDL 37 mg/dL 08/07/2015 Lipid Ord30 C/HDL 2.0 Ratio 08/07/2015 Hepatic Uac967 ALBUMIN 4.0 g/dL 08/07/2015 Hepatic Ifo836 TPRO 6.0 g/dL 08/07/2015 Hepatic Ydf370 GLOB 2.0 g/dL 08/07/2015 Hepatic Arq296 A/G Ratio 2.0 Ratio 08/07/2015 Hepatic Ege463 ALK PHOS 47 U/L 08/07/2015 Hepatic Njc135 ALT(SGPT) 20 U/L 08/07/2015 Hepatic Aha454 AST(SGOT) 26 U/L 08/07/2015 Hepatic Aaf019 BILI T 0.6 mg/dL 08/07/2015 Hepatic Sdt273 BILI D 0.2 mg/dL 08/07/2015 Hepatic Ect841 BILI I 0.4 mg/dL 08/07/2015 Pt Nay5037 PT 24.3 seconds 12/22/2014 Pt Ryi4231 INR 2.3 12/22/2014 Pt Eea5188 Low Intensity - 1.5-2.0 12/22/2014 Pt Uhk2267 Mod intensity - 2.0-3.0 12/22/2014 Pt Cpx7041 Hi intensity - 3.0-4.0 12/22/2014 URINALYSIS NONAUTO W/O SCOPE 96854 Specific [place] 1.030 DateTime(Free Text in ) URINALYSIS NONAUTO W/O SCOPE 31853 PH 6.5 DateTime(Free Ryan t in ) URINALYSIS NONAUTO W/O SCOPE 00793 GLUCOSE neg DateTime(Free Ryan t in ) URINALYSIS NONAUTO W/O SCOPE 30186 Protein trace DateTime(Free T ext in ) URINALYSIS NONAUTO W/O SCOPE 61135 Blood 3+ DateTime(Free Text in Apr) URINALYSIS NONAUTO W/O SCOPE 57906 Bilirubin neg DateTime(Free Ryan t in Apr) URINALYSIS NONAUTO W/O SCOPE 71306 Ketones neg DateTime(Free Ryan t in Aprima) URINALYSIS NONAUTO W/O SCOPE 79950 Urobilinogen neg DateTime(Free Text in Aprima) URINALYSIS NONAUTO W/O SCOPE 68709 Nitrite neg DateTime(Free Ryan t in Aprima) URINALYSIS NONAUTO W/O SCOPE 74371 Leukocytes neg DateTime(Free Text in Apr) Review of Systems System Result Effective Dates Constitutional No recent illness 07/05/2018 Constitutional No [...] inspection of skin Dermatitis: erythema 08/22/2013 right baptism, no open are as, scabbed lesion healed [...] palp - head/face Location: on the right baptism 08/08/2013 --Improved Full Exam - Dermatology Integument [...] palp - head/face Location: on the right baptism 07/29/2013 None Full Exam - Dermatology Integument [...] inspection of skin Dermatitis: erythema 06/25/2013 left baptism, with irritat ed center of lesion Full [...] inspection of skin Dermatitis: erythema 03/26/2013 left baptism, with irritat ed center of lesion Full [...] sounds 02/14/2012 None Full Exam - General 1995 [...] VACC PRSV FREE I NC ANTIG CPT-4: 67166 01/25/2017 PPPS, SUBSEQ VISIT CPT- 4: G0439 08/05/2016 ADMIN PNEUMOCOCCAL V ACCINE SNOMED CT: 96659503 CPT-4: G0009 04/26/2016 Pneumococcal Polysac charide Vaccine, 23-Valent, Ad Formatting Model/CDA Sections, Assigned to/Raquel Shelley CPT-4: 91603Vhzrgcr 04/26/2016 ADMIN INFLUENZA VIRU S VAC CPT-4: G0008 01/27/2016 FLU VACC 4 JULISA 3 YRS PLUS IM Formatting Model/CDA Sections, Assigned to/Raquel Shelley SNOMED CT: 19454569 CPT-4: 27611Niaqazt 01/27/2016 ADMIN INFLUENZA VIRU S VAC Formatting Model/CDA Sections, Assigned to CPT-4: R6977Updbgqh 01/20/2015 FLU VACC 4 JULISA 3 YRS PLUS IM SNOMED CT: 78210631 CPT-4: 58484 01/20/2015 DRAIN/INJECT JOINT/B URSA CPT-4: 21801 04/01/2014 TRIAMCINOLONE ACET I [place] NOS CPT-4: J3301 04/01/2014 URINALYSIS NONAUTO W /O SCOPE CPT-4: 51180 04/01/2014 ADMIN INFLUENZA VIRU S VAC Assigned to/Raquel Shelley CPT-4: R1060Cttkcme 01/13/2014 FLU VAC NO PRSV 4 VA L 3 YRS+ Assigned to/Raquel Shleley CPT-4: 32938Ursgcxp 01/13/2014 PRESCRIP TRANSMIT A ERX SY CPT-4: G8553 03/26/2013 ADMIN INFLUENZA VIRU S VAC CPT-4: G0008 01/14/2013 FLULAVAL VACC, 3 YRS & >, IM CPT-4: Q2036 01/14/2013 DESTRUCT PREMALG LESION CPT-4: 16901 12/25/2012 PRESCRIP TRANSMIT A ERX SY CPT-4: G8553 08/21/2012 DRAIN/INJECT JOINT/B URSA CPT-4: 80670 06/28/2012 TRIAMCINOLONE ACET I [place] NOS CPT-4: J3301 06/28/2012 ADMIN INFLUENZA VIRU S VAC CPT-4: G0008 02/14/2012 FLULAVAL VACC, 3 YRS & >, IM CPT-4: Q2036 02/14/2012 URINALYSIS NONAUTO W /O SCOPE CPT-4: 62942 07/12/2011 PRESCRIP TRANSMIT A ERX SY CPT-4: G8553 07/12/2011 ADMIN INFLUENZA VIRU S VAC CPT-4: G0008 01/11/2011 FLULAVAL VACC, 3 YRS & >, IM CPT-4: Q2036 01/11/2011 Vital Signs Date Vital 07/05/2018 Blood Pressure 1: 124/60 Code: 8480-6 BMI: 21.3 Code: 93215-6 Heart Rate 1: 68 bpm Height: 5'7" SpO2: 97% Weight: 135 lbs 14 o z 06/26/2018 Blood Pressure 1: 128/76 Code: 8480-6 BMI: 21.6 Code: 10880-9 Heart Rate 1: 82 bpm Height: 5'7" SpO2: 95% Weight: 138 lbs 03/27/2018 Blood Pressure 1: 122/70 Code: 8480-6 BMI: 21.1 Code: 70544-6 Heart Rate 1: 76 bpm Height: 5'7" SpO2: 96% Weight: 135 lbs 02/14/2018 Blood Pressure 1: 102/58 Code: 8480-6 BMI: 21.5 Code: 99639-2 Heart Rate 1: 78 bpm Height: 5'7" SpO2: 98% Weight: 137 lbs 11/08/2017 Blood Pressure 1: 132/68 Code: 8480-6 BMI: 21.9 Code: 94738-5 Heart Rate 1: 66 bpm Height: 5'7" SpO2: 98% Weight: 140 lbs 08/11/2017 Blood Pressure 1: 11868 Code: 8480-6 BMI: 22.2 Code: 11572-8 Heart Rate 1: 63 bpm Height: 5'7" SpO2: 98% Waist Measure (cm): 61 cm Weight: 142 lbs 08/09/2017 Blood Pressure 1: 118 Code: 8480-6 BMI: 22.4 Code: 19712-0 Heart Rate 1: 60 bpm Height: 5'7" SpO2: 98% Weight: 143 lbs 04/11/2017 Blood Pressure 1: 12268 Code: 8480-6 BMI: 23.0 Code: 21746-5 Heart Rate 1: 65 bpm Height: 5'7" SpO2: 98% Weight: 147 lbs 01/25/2017 Blood Pressure 1: 136/58 Code: 8480-6 BMI: 23.0 Code: 04056-7 Heart Rate 1: 63 bpm Height: 5'7" SpO2: 96% Weight: 147 lbs 12/21/2016 Blood Pressure 1: 112/52 Code: 8480-6 BMI: 23.0 Code: 13645-4 Heart Rate 1: 73 bpm Height: 5'7" SpO2: 97% Weight: 147 lbs 12/01/2016 Blood Pressure 1: 128/76 Code: 8480-6 BMI: 22.7 Code: 95788-7 Heart Rate 1: 67 bpm Height: 5'7" SpO2: 95% Weight: 145 lbs 10/25/2016 Blood Pressure 1: 128/70 Code: 8480-6 BMI: 23.5 Code: 66352-5 Heart Rate 1: 62 bpm Height: 5'7" SpO2: 96% Weight: 150 lbs 08/05/2016 Blood Pressure 1: 110/58 Code: 8480-6 BMI: 23.3 Code: 56186-8 Heart Rate 1: 65 bpm Height: 5'7" SpO2: 95% Waist Measure (cm): 102 cm Weight: 149 lbs 07/26/2016 Blood Pressure 1: 112/64 Code: 8480-6 BMI: 23.3 Code: 84269-1 Heart Rate 1: 62 bpm Height: 5'7" SpO2: 95% Weight: 149 lbs 04/26/2016 Blood Pressure 1: 124/68 Code: 8480-6 BMI: 23.8 Code: 23099-7 Heart Rate 1: 64 bpm Height: 5'7" SpO2: 98% Weight: 152 lbs 01/27/2016 Blood Pressure 1: 118/70 Code: 8480-6 BMI: 24.0 Code: 49317-4 Heart Rate 1: 64 bpm Height: 5'7" SpO2: 97% Weight: 153 lbs 10/27/2015 Blood Pressure 1: 114/60 Code: 8480-6 BMI: 23.7 Code: 34434-6 Heart Rate 1: 61 bpm Height: 5'7" SpO2: 97% Weight: 151 lbs 8 oz 06/30/2015 Blood Pressure 1: 102/60 Code: 8480-6 BMI: 23.9 Code: 94038-6 Heart Rate 1: 70 bpm Height: 5'7" SpO2: 97% Weight: 152 lbs 8 oz 03/31/2015 Blood Pressure 1: 122/64 Code: 8480-6 BMI: 23.2 Code: 82686-6 Heart Rate 1: 64 bpm Height: 5'7" SpO2: 97% Weight: 148 lbs 03/17/2015 Blood Pressure 1: 142/76 Code: 8480-6 BMI: 23.5 Code: 56396-3 Heart Rate 1: 64 bpm Height: 5'7" SpO2: 98% Weight: 150 lbs 01/20/2015 Blood Pressure 1: 128/64 Code: 8480-6 BMI: 22.9 Code: 87513-0 Heart Rate 1: 72 bpm Height: 5'7" SpO2: 96% Weight: 146 lbs 12/15/2014 Blood Pressure 1: 110/60 Code: 8480-6 BMI: 21.9 Code: 19972-7 Heart Rate 1: 88 bpm Height: 5'7" SpO2: 96% Weight: 140 lbs 09/30/2014 Blood Pressure 1: 146/70 Code: 8480-6 BMI: 23.5 Code: 11956-1 Heart Rate 1: 53 bpm Height: 5'7" SpO2: 94% Weight: 150 lbs 07/01/2014 Blood Pressure 1: 140/62 Code: 8480-6 BMI: 23.6 Code: 08787-3 Heart Rate 1: 70 bpm Height: 5'7" Weight: 151 lbs 04/01/2014 Blood Pressure 1: 118/78 Code: 8480-6 BMI: 24.5 Code: 71659-8 Heart Rate 1: 56 bpm Height: 5'7" Weight: 156 lbs 8 oz 01/13/2014 Blood Pressure 1: 138/64 Code: 8480-6 BMI: 24.4 Code: 99340-8 Heart Rate 1: 54 bpm Height: 5'7" SpO2: 96% Weight: 156 lbs 10/15/2013 Blood Pressure 1: 124/74 Code: 8480-6 BMI: 24.6 Code: 42539-0 Heart Rate 1: 60 bpm Height: 5'7" Weight: 157 lbs 09/11/2013 Blood Pressure 1: 120/62 Code: 8480-6 BMI: 23.6 Code: 68782-9 Heart Rate 1: 64 bpm Height: 5'7" Weight: 151 lbs 08/22/2013 Blood Pressure 1: 120/64 Code: 8480-6 BMI: 24.4 Code: 75045-9 Heart Rate 1: 64 bpm Height: 5'7" Weight: 156 lbs 08/08/2013 Blood Pressure 1: 102/62 Code: 8480-6 BMI: 24.7 Code: 70117-5 Heart Rate 1: 60 bpm Height: 5'7" Weight: 158 lbs 07/29/2013 Blood Pressure 1: 114/74 Code: 8480-6 Heart Rate 1: 60 bpm 06/25/2013 Blood Pressure 1: 128/70 Code: 8480-6 BMI: 24.1 Code: 80984-3 Heart Rate 1: 56 bpm Height: 5'7" SpO2: 98% Weight: 154 lbs 03/26/2013 Blood Pressure 1: 132/78 Code: 8480-6 BMI: 24.6 Code: 38017-9 Heart Rate 1: 60 bpm Height: 5'7" SpO2: 98% Temperature: 36.5 (C ) / 97.7 (F) Weight: 157 lbs 12/25/2012 Blood Pressure 1: 98/60 Code: 8480-6 Heart Rate 1: 64 bpm Weight: 160 lbs 11/20/2012 Blood Pressure 1: 136/80 Code: 8480-6 BMI: 24.6 Code: 56333-4 Heart Rate 1: 68 bpm Height: 5'7" Weight: 157 lbs 08/21/2012 Blood Pressure 1: 112/56 Code: 8480-6 BMI: 23.8 Code: 79651-5 Heart Rate 1: 60 bpm Height: 5'7" Weight: 152 lbs 06/28/2012 Blood Pressure 1: 128/82 Code: 8480-6 Heart Rate 1: 80 bpm Respiratory Rate: 20 bpm Weight: 149 lbs 05/21/2012 Blood Pressure 1: 116/64 Code: 8480-6 BMI: 23.6 Code: 23458-5 Heart Rate 1: 72 bpm Height: 5'7" Weight: 151 lbs 04/26/2012 Blood Pressure 1: 140/80 Code: 8480-6 Heart Rate 1: 76 bpm Respiratory Rate: 16 bpm Temperature: 36.7 (C) / 98.0 (F) Weight: 02/14/2012 Blood Pressure 1: 116/58 Code: 8480-6 BMI: 23.6 Code: 64371-1 Heart Rate 1: 64 bpm Height: 5'7" Respiratory Rate: 18 bpm Weight: 151 lbs 10/11/2011 Blood Pressure 1: 100/54 Code: 8480-6 Heart Rate 1: 60 bpm Respiratory Rate: 16 bpm Weight: 143 lbs 07/12/2011 Blood Pressure 1: 130/62 Code: 8480-6 BMI: 22.9 Code: 03283-0 Heart Rate 1: 62 bpm Height: 5'7" Respiratory Rate: 16 bpm Weight: 146 lbs 05/11/2011 Blood Pressure 1: 120/64 Code: 8480-6 BMI: 23.6 Code: 60909-4 Heart Rate 1: 72 bpm Height: 5'7" Respiratory Rate: 16 bpm Weight: 151 lbs 04/12/2011 Blood Pressure 1: 120/62 Code: 8480-6 BMI: 24.6 Code: 85227-2 Heart Rate 1: 60 bpm Height: 5'7" Respiratory Rate: 16 bpm Weight: 157 lbs 01/11/2011 Blood Pressure 1: 126/68 Code: 8480-6 BMI: 24.7 Code: 12979-7 Heart Rate 1: 50 bpm Height: 5'7" Respiratory Rate: 12 bpm Weight: 158 lbs Functional Status No Functional Status data History of Present Illness Symptom Name Status Resu lt Effective Date Notes Location both ears 07/05/2018 None Onset of [...] is getting stronger Hospital Follow Up _ Ot er: knee surgery 12/15/2014 None Hospital Follow [...] lesion Location on the forehead 07/29/2013 right baptism skin lesion Onset and Resolution ongoing 07/29/2013 [...] down to 130lbs but since moving to [place] has gained some weight back hypertension Quality [...] remembering names 01/11/2011 None memory loss 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 P ATIENT, LEVEL III Diagnosis: Otalgia, left ear[ICD10: H92.02] Nay Martinez MD, [facility] CPT-4: 42933 07/05/2018 ([id number]) 33493 EST. P ATIENT, LEVEL III Diagnosis: Otorrhagia, bilateral[ICD10: H92.23] Nay Martinez MD, [facility] CPT-4: 81921 06/26/2018 ([id number]) 65109 EST. P ATIENT, LEVEL III Diagnosis: Essential (primary) hypertension[ICD10: I10] Diagnosis: Slow transit constipation[ICD10: K59.01] Nay Martinez MD, [facility] CPT-4: 39269 03/27/2018 [id number]) 49410 EST. P ATIENT, LEVEL III Diagnosis: Slow transit constipation[ICD10: K59.01] Diagnosis: Other hypotension[ICD10: I95.89] Nay Martinez MD, [facility] CPT-4: 65827 02/14/2018 ([id number]) 83992 EST. P ATIENT, LEVEL IV Diagnosis: Essential (primary) hypertension[ICD10: I10] Diagnosis: Alzheimer's disease with early onset[ICD10: G30.0] Diagnosis: Actinic keratosis[ICD10: L57.0] Nay Martinez MD, [facility] CPT-4: 62417 11/08/2017 ([id number]) 11095 EST. P ATIENT, LEVEL IV Diagnosis: Essential (primary) hypertension[ICD10: I10] Diagnosis: Mixed hyperlipidemia[ICD10: E78.2] Diagnosis: Alzheimer's disease with early onset[ICD10: G30.0] Nay Martinez MD, C CPT-4: 94939 08/09/2017 ([id number]) 72184 EST. P ATIENT, LEVEL IV Diagnosis: Essential (primary) hypertension[ICD10: I10] Diagnosis: Alzheimer's disease with early onset[ICD10: G30.0] Diagnosis: Mixed hyperlipidemia[ICD10: E78.2] Diagnosis: Pain in left knee[ICD10: M25.562] Nay Martinez MD, [facility] CPT-4: 02821 04/11/2017 ([id number]) 35181 EST. P ATIENT, LEVEL III Diagnosis: Essential (primary) hypertension[ICD10: I10] Diagnosis: Encounter for immunization[ICD10: Z23] Diagnosis: Alzheimer's disease with early onset[ICD10: G30.0] Nay Martinez MD, [facility] CPT-4: 36291 01/25/2017 ([id number]) 88038 EST. P ATIENT, LEVEL III Diagnosis: Otalgia, left ear[ICD10: H92.02] Nay Martinez MD, [facility] CPT-4: 31344 12/21/2016 ([id number]) 41088 EST. P ATIENT, LEVEL IV Diagnosis: Essential (primary) hypertension[ICD10: I10] Diagnosis: Alzheimer's disease with early onset[ICD10: G30.0] Diagnosis: Abnormal weight loss[ICD10: R63.4] Nay Martinez MD, [facility] CPT- 4: 01587 12/01/2016 ([id number]) 54274 EST. P ATIENT, LEVEL IV Diagnosis: Essential (primary) hypertension[ICD10: I10] Diagnosis: Mixed hyperlipidemia[ICD10: E78.2] Nay Martinez MD, [facility] CPT- 4: 08281 10/25/2016 57380 EST. PATIENT, LEVEL IV Diagnosis: Essential (primary) hypertension[ICD10: I10] Diagnosis: Alzheimer's disease with early onset[ICD10: G30.0] Diagnosis: Pain in left knee[ICD10: M25.562] Diagnosis: Cyst of kidney, acquired[ICD10: N28.1] Nay Martinez MD, [facility] CPT-4: 58225 07/26/2016 ([id number]) 06514 EST. P ATIENT, LEVEL IV Diagnosis: Essential (primary) hypertension[ICD10: I10] Diagnosis: Alzheimer's disease with early onset[ICD10: G30.0] Rosa Martinez MD, [facility] CPT-4: 89364 04/26/2016 ([id number]) 07734 EST. P ATIENT, LEVEL IV Diagnosis: Essential (primary) hypertension[ICD10: I10] Diagnosis: Alzheimer's disease with early onset[ICD10: G30.0] Diagnosis: VACCIN FOR INFLUENZA[ICD10: Z23] Nay Martinez MD, [facility] CPT-4: 73837 01/27/2016 ([id number]) 45163 EST. P ATIENT, LEVEL IV Diagnosis: Essential (primary) hypertension[ICD10: I10] Diagnosis: Alzheimer's disease with early onset[ICD10: G30.0] Nay Martinez MD, [facility] CPT-4: 63923 10/27/2015 ([id number]) 51149 EST. P ATIENT, LEVEL IV Diagnosis: Essential (primary) hypertension[ICD10: I10] Diagnosis: Alzheimer's disease with early onset[ICD10: G30.0] Nay Martinez MD, [facility] CPT-4: 62573 06/30/2015 ([id number]) 47563 EST. P ATIENT, LEVEL IV Diagnosis: Essential (primary) hypertension[ICD10: I10] Diagnosis: Alzheimer's disease with early onset[ICD10: G30.0] Nay Martinez MD, C CPT-4: 51099 03/31/2015 91722 EST. PATIENT, LEVEL III Diagnosis: Low back pain[ICD10: M54.5] Fern Martinez MD, [facility] CPT-4: 36443 03/17/2015 ([id number]) 59729 EST. P ATIENT, LEVEL IV Diagnosis: ESSENTIAL HYPERTENSION[ICD9: 401.9] Diagnosis: Encounter for long-term (current) use of anticoagulants[ICD9: V58.61] Diagnosis: Skin change[ICD9: 782.9] Diagnosis: Change in mole[ICD9: 216.9] Diagnosis: VACCIN FOR INFLUENZA[ICD9: V04.81] [facility] CPT- 4: 67449 01/20/2015 ([id number]) 08429 EST. P ATIENT, LEVEL IV Diagnosis: ESSENTIAL HYPERTENSION[ICD9: 401.9] Diagnosis: OSTEOARTHROSIS-MULT SITE[ICD9: 715.80] Diagnosis: Knee pain[ICD9: 719.46] Diagnosis: ENCNTR LONG-ANTICOAG USE[ICD9: V58.61] [facility] CPT-4: 89211 12/15/2014 ([id number]) 45150 EST. P ATIENT, LEVEL IV Diagnosis: ESSENTIAL HYPERTENSION[ICD9: 401.9] Diagnosis: OSTEOARTHROSIS-MULT SITE[ICD9: 715.80] Diagnosis: Knee pain[ICD9: 719.46] [facility] CPT-4: 07710 09/30/2014 ([id number]) 44428 EST. P ATIENT, LEVEL IV Diagnosis: Skin cancer[ICD9: 173.90] Diagnosis: ESSENTIAL HYPERTENSION[ICD9: 401.9] Diagnosis: ALZHEIMER'S DISEASE[ICD9: 331.0] Diagnosis: Knee pain[ICD9: 719.46] [facility] CPT-4: 07190 07/01/2014 ([id number]) 86415 EST. P ATIENT, LEVEL IV Diagnosis: ESSENTIAL HYPERTENSION[ICD9: 401.9] Diagnosis: Dysuria[ICD9: 788.1] Diagnosis: Knee pain, bilateral[ICD9: 719.46] Diagnosis: Osteoarthritis[ICD9: 715.90] Diagnosis: Dementia[ICD9: 294.8] [facility] CPT-4: 64721 04/01/2014 ([id number]) 29412 EST. P ATIENT, LEVEL IV Diagnosis: ESSENTIAL HYPERTENSION[ICD9: 401.9] Diagnosis: VACCIN FOR INFLUENZA[ICD10: Z23] Diagnosis: HYPERLIPIDEMIA[ICD9: 272.4] Diagnosis: ALZHEIMER'S DISEASE[ICD9: 331.0] Nay Martinez MD, [facility] CPT-4: 45429 01/13/2014 ([id number]) 18978 EST. P ATIENT, LEVEL IV Diagnosis: Dementia[ICD9: 294.8] Diagnosis: Alzheimer's dementia[ICD9: 331.0] Diagnosis: OSTEOARTHROSIS-MULT SITE[ICD9: 715.80] Diagnosis: ESSENTIAL HYPERTENSION[ICD9: 401.9] Nay Martinez MD, [facility] CPT- 4: 08130 10/15/2013 ([id number]) 43864 EST. P ATIENT, LEVEL III Diagnosis: Knee pain, acute[ICD9: 719.46] Diagnosis: Osteoarthritis[ICD9: 715.90] Diagnosis: Gait instability[ICD9: 781.2] Nay Martinez MD, [facility] CPT-4: 62684 09/11/2013 ([id number]) 97010 EST. P ATIENT, LEVEL III Diagnosis: CELLULITIS OF FACE[ICD9: 682.0] Diagnosis: Esophageal reflux[ICD9: 530.81] Rosa Martinez MD, [facility] CPT- 4: 41770 08/22/2013 65700 EST. PATIENT, LEVEL II Diagnosis: CELLULITIS OF FACE[ICD9: 682.0] Nay Martinez MD, [facility] CPT-4: 67228 08/08/2013 ([id number]) 73400 EST. P ATIENT, LEVEL III Diagnosis: Cellulitis of baptism[ICD9: 682.0] Nay Martinez MD, [facility] CPT-4: 99879 07/29/2013 ([id number]) 06372 EST. P ATIENT, LEVEL IV Diagnosis: ESSENTIAL HYPERTENSION[SNOMED: 69965292] Diagnosis: ALZHEIMER'S DISEASE[ICD9: 331.0] Diagnosis: INTEGUMENT TISS SYMP NEC[ICD9: 782.9] Diagnosis: JOINT PAIN-L/LEG[ICD9: 719.46] Nay Martinez MD, [facility] CPT-4: 03377 06/25/2013 ([id number]) 87489 EST. P ATIENT, LEVEL IV Diagnosis: ESSENTIAL HYPERTENSION[SNOMED: 59770063] Diagnosis: ACTINIC KERATOSIS[ICD9: 702.0] Diagnosis: Skin cancer[ICD9: 173.90] Diagnosis: COUGH[ICD9: 786.2] Diagnosis: ACUTE BRONCHITIS[ICD9: 466.0] [facility] CPT-4: 60371 03/26/2013 03419 EST. PATIENT, LEVEL IV Diagnosis: ESSENTIAL HYPERTENSION[SNOMED: 30535429] Diagnosis: ALZHEIMER'S DISEASE[ICD9: 331.0] Diagnosis: JOINT PAIN-L/LEG[ICD9: 719.46] Diagnosis: MUSCSKEL SYMPT LIMB NEC[ICD9: 729.89] [facility] CPT-4: 00705 11/20/2012 ([id number]) 72420 EST. P ATIENT, LEVEL IV Diagnosis: ESSENTIAL HYPERTENSION[SNOMED: 13388085] Diagnosis: ALZHEIMER'S DISEASE[ICD9: 331.0] Diagnosis: ENCNTR LONG-ANTICOAG USE[ICD9: V58.61] Diagnosis: Skin change[ICD9: 782.9] [facility] CPT-4: 85710 08/21/2012 ([id number]) 15154 EST. P ATIENT, LEVEL III Diagnosis: SUBDURAL HEMORRHAGE[ICD9: 432.1] [facility] CPT-4: 46614 06/28/2012 ([id number]) 23981 EST. P ATIENT, LEVEL IV Diagnosis: ESSENTIAL HYPERTENSION[SNOMED: 20636095] Diagnosis: Subdural hematoma[ICD9: 432.1] Diagnosis: Encounter for long-term (current) use of anticoagulants[ICD9: V58.61] [facility] CPT-4: 61125 05/21/2012 ([id number]) Patient adm itted to the hospital from clinic (NO CHARGE) Diagnosis: Lower extremity weakness[ICD9: 729.89] Diagnosis: FALL AGAINST OBJECT[ICD9: E888.1] Diagnosis: Gait instability[ICD9: 781.2] [facility] CPT-4: 69850T 04/26/2012 ([id number]) 47691 EST. P ATIENT, LEVEL IV Diagnosis: ESSENTIAL HYPERTENSION[SNOMED: 88376672] Diagnosis: ALZHEIMER'S DISEASE[ICD9: 331.0] Diagnosis: HYPERLIPIDEMIA[ICD9: 272.4] Nay Martinez MD, [facility] CPT-4: 68051 02/14/2012 ([id number]) 05345 EST. P ATIENT, LEVEL IV Diagnosis: ALZHEIMER'S DISEASE[ICD9: 331.0] Diagnosis: Abnormal loss of weight[ICD9: 783.21] Diagnosis: Knee pain, bilateral[ICD9: 719.46] Diagnosis: ESSENTIAL HYPERTENSION[SNOMED: 84933010] Nay Martinez MD, [facility] CPT-4: 39913 10/11/2011 ([id number]) 36463 EST. P ATIENT, LEVEL IV Diagnosis: ESSENTIAL HYPERTENSION[SNOMED: 58247039] Diagnosis: JOINT PAIN-L/LEG[ICD9: 719.46] Diagnosis: Thrush[ICD9: 112.0] Diagnosis: Abdominal pain[ICD9: 789.00] Nay Martinez MD, [facility] CPT-4: 94319 07/12/2011 ([id number]) 21755 EST. P ATIENT, LEVEL III Diagnosis: Knee pain[ICD9: 719.46] Diagnosis: OSTEOARTHROSIS-MULT SITE[ICD9: 715.80] Nay Martinez MD, [facility] CPT-4: 44286 05/11/2011 ([id number]) 06777 EST. P ATIENT, LEVEL IV Diagnosis: Alzheimer's dementia[ICD9: 331.0] Diagnosis: ESSENTIAL HYPERTENSION[SNOMED: 40717330] Nay Martinez MD, C CPT-4: 07795 04/12/2011 66485 EST. PATIENT, LEVEL IV Diagnosis: ESSENTIAL HYPERTENSION[SNOMED: 15881751] Diagnosis: HYPERLIPIDEMIA[ICD9: 272.4] Diagnosis: VACCIN FOR INFLUENZA[ICD9: V04.81] Diagnosis: Dementia[ICD9: 294.8] Nay Martinez MD, [facility] CPT-4: 69745 01/11/2011 Plan of Care Planned Activity Notes C odes Status Date Visit Plan: Blood in ears - this [...] 2 wks 07/05/2018 Appointment: [phone] [facility] [place] (15 min) Moderate 07/05/2018 Patient Education: Patient Medication Summary Completed 07/05/2018 Visit Plan: Nasal congestion - rx f or flonase to the [facility] - rx was called to [facility]. Blood in ears - due to pt using qtips aggressively - recommended pt to use mineral oil in ears nightly x 10 days - return to clinic in 10 days for my evaluation to see if there are any residual lesions in his ears once the dried blood is out of the ear canals. 06/26/2018 Appointment: [facility]ay [phone] [facility] [place] (15 min) Moderate 06/26/2018 Patient Education: [...] at home. 03/27/2018 Appointment: [facility] [phone] [facility] [place] (15 min) Moderate 03/27/2018 Patient Education: Patient Medication Summary Completed 03/27/2018 Appointment: [facility] [phone] [facility] [place] (15 min) Moderate 03/07/2018 Appointment: Nay Martinez WPtel: [phone] [place] [facility] (15 min) Moderate 02/21/2018 Visit Plan: [...] morning. 02/14/2018 Appointment: [facility]ay [facility] [phone] [facility] (15 min) Moderate 02/14/2018 Patient Education: Patient [...] current medications. 11/08/2017 Appointment: Nay Martinez WPtel: [facility] (15 min) Moderate 11/08/2017 Patient Education: [...] paperwork for health care surrogate. 08/11/2017 Appointment: [phone] [facility] [place] [address] - Annual Wellness Visit 08/11/2017 Patient Education: [...] intake. 08/09/2017 Appointment: [facility]ay [facility]el[facility] [phone] [facility] (15 min) Moderate 08/09/2017 Patient Education: [...] normal liver response to medications. 04/11/2017 Appointment: aNy Martinez WPtel: [phone] [place] [facility] (15 min) Moderate 04/11/2017 Patient Education: [...] loss. 01/25/2017 Appointment: Nay Martinez WPtel: [phone] [place] [facility] (15 min) Moderate 01/25/2017 Patient Education: Patient Medication Summary Completed 01/25/2017 Appointment: Nay Martinez WPtel: [facility]2 [place] [facility] (15 min) Moderate 01/24/2017 Visit Plan: Dried bloody debris in left ear - removed with alligator forceps, ear currette - pt to use mineral oil in the ear. 12/21/2016 Appointment: Nay Martinez WPtel: [facility]0 [place] [facility] (15 min) Moderate 12/21/2016 Patient Education: [...] intake. 12/01/2016 Appointment: Nay Martinez WPtel: [phone] [place] [facility] (15 min) Moderate 12/01/2016 Patient Education: [...] medications. 10/25/2016 Appointment: [facility] [phone] [facility] (15 min) Moderate 10/25/2016 Patient Education: [...] home. 08/05/2016 Appointment: Rosa Aguilar [facility] [phone] [facility] [facility] - Annual Wellness Visit 08/05/2016 Patient Education: [...] for tomorrow. 07/26/2016 Appointment: Nay Martinez WPtel: [phone] [place] [facility] [place] (15 min) Moderate 07/26/2016 Patient [...] treatment. 04/26/2016 Appointment: Rosa Aguilar [facility]el[facility] [phone] [facility] [place] (15 min) Moderate 04/26/2016 Patient [...] treatment. 01/27/2016 Appointment: Nay Martinez WPtel: [phone] [place] [facility] [place] (15 min) Moderate 01/27/2016 Patient Education: [...] of treatment. 10/27/2015 Appointment: Nay Martinez WPtel: [facility]5 [place] [facility] (15 min) Moderate 10/27/2015 Patient Education: [...] of treatment. 06/30/2015 Appointment: Nay Martinez [facility]Ptel[facility] [phone] [facility] (15 min) Moderate 06/30/2015 Appointment: Nay Martinez WPtel: [facility] [place] (15 min) Moderate 06/30/2015 Patient [...] treatment. 03/31/2015 Appointment: Nay Martinez [facility]Ptel: [phone] [facility] [place] (15 min) Moderate 03/31/2015 Patient [...] surgically removed. 01/20/2015 Appointment: Nay Martinez [facility]Ptel: [phone] [facility] [place] (15 min) Moderate 01/20/2015 Patient Education: Patient Medication Summary Completed 01/20/2015 Patient Education: Hypertension Completed 01/20/2015 Care Plan: Referral Order SNOMED-CT : [id number] Ordered 01/20/2015 Appointment: Nay Martinez WPtel: [phone] [facility] [place] (15 min) Moderate 12/18/2014 Visit Plan: [...] and 3.5. 12/15/2014 Appointment: Nay Martinez WPtel: [facility]2 [place] [facility] (15 min) Moderate 12/15/2014 Patient Education: Patient [...] to have his knee operated on at [facility], I have placed a phone call to Dr. Ballesteros - waiting on a call back 09/30/2014 Appointment: Nay Martinez WPtel: [facility]8 [place] [facility] Follow up 09/30/2014 Patient Education: Patient [...] knee. 07/01/2014 Appointment: Nay Martinez [facility]Ptel: [phone] [facility] Follow up 07/01/2014 Patient Education: Patient Medication Summary Completed 07/01/2014 Patient Education: Hypertension Completed 07/01/2014 Care Plan: Referral Order SNOMED-CT : [id number] Ordered 07/01/2014 Visit Plan: Hypertension - well [...] treatment. 04/01/2014 Appointment: Nay Martinez [facility]Ptel: [phone] [facility] Follow up 04/01/2014 Patient Education: Patient [...] of treatment. 01/13/2014 Appointment: Nay Martinez WPtel: [address] [place], [place] [phone] Follow up 01/13/2014 Patient Education: Patient Medication Summary Completed 01/13/2014 Patient Education: Hypertension Completed 01/13/2014 Care Plan: COMPLETE CBC AUTOMATED LOINC : 12387-2 Ordered 01/13/2014 Visit Plan: Knee pain has improved - pt needs to continue with use of the voltaren gel, no change in treatment at this time, he is not interested in seeing an orthopedic surgeon until his knee pain is not controlled with the voltaren gel. 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 10/15/2013 Appointment: Nay Martinez WPtel: [address] [place], [place] [phone] Follow up 10/15/2013 Patient Education: Patient Medication Summary Completed 10/15/2013 Patient Education: Hypertension Completed 10/15/2013 Appointment: Nay Martinez WPtel: [address] [place], [place] [phone] Follow up 10/02/2013 Visit Plan: Lower leg pain - rx for voltaren gel to be used on right knee four times daily to alleviate pain in knee. Pt to use walker - RX for rolator walker. 09/11/2013 Appointment: Nay Martinez WPtel: [address] [place], [place] [phone] Other 09/11/2013 Patient Education: Patient Medication Summary [...] current treatement. 08/22/2013 Appointment: Rosa Aguilar WPtel: [facility]5 [facility] [place] [address] Follow up 08/22/2013 Patient Education: Patient Medication Summary Completed 08/22/2013 Visit Plan: Uvodtcrjbvt-riwompbf-gb ntinue treatment-return in 2 weeks for follow up 08/08/2013 Appointment: Rosa Aguilar WPtel: [address] [place] [address] Follow up 08/08/2013 Patient Education: Patient Medication [...] current plan of treatment. Skin lesion on baptism - pt to use flurouracil on lesions on baptism. OA of knees - pt to try voltaren gel. 06/25/2013 Appointment: Nay Martinez WPtel: [address] [place], [place] [phone] Follow up 06/25/2013 Patient Education: Patient Medication [...] acute conerns. 03/26/2013 Appointment: Nay Martinez WPtel: [address] [place], [place] [phone] Follow up 03/26/2013 Patient Education: Patient Medication Summary Completed 03/26/2013 Patient Education: Hypertension Completed 03/26/2013 Appointment: Rosa Aguilar WPtel: [address] [place], [place] [phone] [place] [address] Nurse Visit 01/14/2013 Patient Education: Patient Medication Summary Completed 01/14/2013 Visit Plan: Wound Instructions - Pt was instruced to keep the wound clean, wash with antibacterial soap, use triple antibiotic ointment, call if redness, pustular drainage, or any other acute conerns. 12/25/2012 Appointment: Rosa Aguilar WPtel: [address] [place], [place] [phone] Surgical Procedure 12/25/2012 Patient Education: Patient Medication [...] be weak. 11/20/2012 Appointment: Nay Martinez WPtel: [address] [place], [place] [phone] Follow up 11/20/2012 Patient Education: Patient Medication [...] every days. 08/21/2012 Appointment: Nay Martinez [facility]Ptel: [address] [facility] Follow up 08/21/2012 Patient Education: Hypertension Completed 08/21/2012 Patient Education: Patient Medication Summary Completed 08/21/2012 Visit Plan: Subdural hematoma-recen t fall-decreased in size with tiny acute component-plan to repeat CT in 2 weeks Low back ksfu-injifnmtwwy-MM joint Injection today in the office - Pt was given post - injection instructions. The pt has been advised to use antiinflammatories post injection today, ice to the injected site, call if redness, warmth, or increased pain occurs at the site of injection. 06/28/2012 Appointment: Rosa Aguilar [facility]el[phone] [facility] Other 06/28/2012 Patient Education: Patient Medication Summary [...] this week. 05/21/2012 Appointment: Nay Martinez WPtel: [phone] [place] [facility] Hospital follow up 05/21/2012 Patient Education: Patient Medication Summary Completed 05/21/2012 Patient Education: Hypertension Completed 05/21/2012 Appointment: Nay Martinez WPtel: [phone] [place] [facility] Follow up 05/15/2012 Visit Plan: Fall-sudden onset of ri ght lower extremity weakness-Dr Martinez in to evaluate patient-plan to admit for observation and further work up which includes a STAT CT of the head and labs. Patient and verbalize understanding. 04/26/2012 Appointment: Nay Martinez WPtel: [facility]9 [place] [facility] balance problem, fall 1 month ago Other [...] treatment. 02/14/2012 Appointment: Nay Martinez WPtel: [phone] [place] [facility] Established Patient Preventative visit 02/14/2012 Patient [...] Weight loss - discussed the need for [employer] to not loose more weight. He reports that he has actually gained weight in the past few weeks since moving to [facility]. Knee pain - has improved with flector patches, no change in current treatment. HTN - controlled - no change in medications. I have encouraged Omid to check his blood pressures oc casionally at home and bring in his list at his next office visit. 10/11/2011 Appointment: Nay Martinez [facility]Ptel: [phone] [facility] Other 10/11/2011 Patient Education: Patient Medication Summary [...] OF BLOOD. 07/12/2011 Appointment: Nay Martinez [facility]Ptel: [address] [facility] Other 07/12/2011 Patient Education: Patient Medication Summary Completed 07/12/2011 Patient Education: High Blood Pressure: Essential Hypertension Completed 07/12/2011 Visit Plan: Knee pain- uncontrolled - but improving, recommend watchful waiting and to use FLECTOR PATCH, 1/4 of a patch and change twice daily.. Call if the pain worsens. 05/11/2011 Appointment: Nay Martinez WPtel: [facility]2 [place] [phone] Other 05/11/2011 Patient Education: Patient Medication Summary [...] in medications. 04/12/2011 Appointment: Nay Martinez WPtel: [facility]0 [address] Other 04/12/2011 Patient Education: Patient Medication Summary [...] this time. 01/11/2011 Appointment: Nay Martinez WPtel: [facility]4 [place] [address] [place] Other 01/11/2011 Patient Education: Patient Medication Summary Completed 01/11/2011 Referral: Cris Egan Referral Relationship Referral: Dayron Ballesteros Referral Appointment Requested Referral: Kings Valles WPtel: [phone] [id number] [place] Referral Relationship Referral: Carl Yu Referral Relationship Instructions Comment . Blood in ears - th is [...] 10 days - RTC in 2 wks use 2 ML of mineral oil or [...] Nasal congestion - rx for flonase to [facility] - rx was called to [facility]. Blood in ears - due to pt using qtips aggressively - recommended pt to use mineral oil in ears nightly x 10 days - return to clinic in 10 days for my evaluation to see if there are any residual lesions in his ears once the dried blood is out of the ear canals. Try tiger balm to lo w back. [...] treatement. joint juice, [place] [...] will need this lesion surgically removed. . [facility]lulitis-[facility] ed-continue treatment-return in 2 weeks for follow up . Subdural hematoma- recent fall-decreased in size with tiny acute component-plan to repeat CT in 2 weeks Low back nkst-xnwigrnjnsn-EU joint Injection today in the office - [...] assure normal liver response to medications. . Knee pain- uncontr olled- but improving, [...] gel. 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 . Memory loss- sympt oms slightly worsening [...] current plan of treatment. Skin lesion on baptism - pt to use flurouracil on lesions on baptism. OA of knees - pt to try [...] to have his knee operated on at [facility], I have placed a [...] Weight loss - discussed the need for [employer] to not loose more weight. He reports that he has actually gained weight in the past few weeks since moving to [facility]. Knee pain - has [email or web address] [id number]
--- OUTSIDE RECORDS SUMMARY | 2019-07-11 12:52 | XMS REPORT | CCD ---
Author Author Omid Martinez Organization Nay Martinez MD, [facility] Address [address] [place] [address] Phone Care Team Providers Care Golf Ball Trimmer Name Role Phone Nay Martinez PP Unavailable CCM Unavailable Summary Purpose Interface Exchange Insurance Providers Payer name Policy type / Coverage type Covered constitution party ID Effective Begin Date Effective End Date WPS Medicare Part B Medicare Part B [id number] Unknown [facility] icare Part B [id number] Un known Family history Mother Diagnosis Age At Onset No Family Disease Entered N/A Father Diagnosis Age At Onset No Family Disease Entered N/A Brother Diagnosis Age At Onset No Family Disease Entered N/A Social History Social History Element Codes Description Effective Dates Number of children Unknown 3 sons 02/14/2018 Living arrangements Unknown Assisted Living Moved in August 2011 to assisted living facility [facility]. 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 04/11/[address]: 295248544 Nonsmoker 04/11/2011 Has the patient ever used [...] Codes Condition Status Onset Date Resolved Date Otorrhagia, bilateral ICD-9: 388.69 ICD-10: H92.23 Active [...] ICD-9: 401.9 ICD-10: I10 Active 04/25/2016 Unknown Otalgia, left ear ICD-9: 388.70 ICD-10: H92.02 Active 12/21/2016 Unknown Abnormal weight loss ICD-9: 783.21 ICD-10: [...] ICD-9: 530.81 Active 08/22/2013 Unknown Cellulitis of anabaptism ICD-9: 682.0 Active 07/29/2013 Unknown ACUTE BRONCHITIS [...] Condition Codes Effectiv e Dates Condition Status Otorrhagia, bilateral ICD-9: 388.69 ICD-10: H92.23 06/26/2018 [...] hypertension ICD-9: 401.9 ICD-10: I10 04/25/2016 Active Otalgia, left ear ICD-9: 388.70 ICD-10: H92.02 12/21/2016 Active Abnormal weight loss ICD-9: 783.21 ICD-10: [...] reflux ICD-9: 530.81 08/22/2013 Active Cellulitis of anabaptism ICD-9: 682.0 07/29/2013 Active ACUTE BRONCHITIS ICD-9: [...] Reli ef 50 mcg/actuation nasal spray,suspension RxNorm: 9126945 1 [place] NASAL BID 06/26/2018 07/25/2018 Active Namenda 10 mg tablet RxNorm: 455915 1 Tablet(s) PO BID 02/07/2018 09/04/2018 Active omeprazole 20 mg cap mino,delayed release RxNorm: 333654 1 Capsule(s) PO BID 02/07/2018 09/04/2018 Ac tive omeprazole 20 mg cap mino,delayed release RxNorm: 693428 1 Capsule(s) PO BID 01/25/2018 02/06/2018 In active ropinirole 1 mg tablet RxNorm: 100368 1 Tablet(s) PO daily 01/17/2018 07/10/2019 Active Zyrtec 10 mg tablet RxNorm: 0619181 1 Tablet(s) PO daily 11/08/2017 06/05/2018 Inactive atorvastatin 20 mg t ablet RxNorm: 222556 1 Tablet(s) PO daily 08/09/2017 03/06/2018 Inactive Namenda 10 mg tablet RxNorm: 825113 1 Tablet(s) PO BID 07/24/2017 10/21/2017 Inactive Insurance denied Namenda XR 28mg Namenda 10 mg tablet RxNorm: 039084 1 Tablet(s) PO BID 07/24/2017 07/23/2017 Inactive Insurance denied Namenda XR 28mg Cerefolin NAC 600 mg -2 mg-6 mg tablet RxNorm: TAKE ONE CAPLET BY MOUTH ON E TIME DAILY 07/11/2017 07/05/2018 Active Aricept 10 mg tablet RxNorm: 785479 1 Tablet(s) PO daily 06/01/2017 05/26/2018 Inactive Aricept 10 mg tablet RxNorm: 644795 1 Tablet(s) PO daily 06/01/2017 05/31/2017 Inactive Cerefolin NAC 600 mg -2 mg-6 mg tablet RxNorm: TAKE ONE TABLET BY MOUTH ON E TIME DAILY 07/06/2016 06/30/2017 Inactive fluorouracil 5 % top ical cream RxNorm: 192219 1 Application TOP luz ly use daily x 1 week, then stop use, let tissue heal x1wk, if still dry patchy, then restart the medication x 1 week 01/29/2016 02/07/2016 Inactive omeprazole 20 mg cap mino,delayed release RxNorm: 538584 1 Capsule(s) PO BID 01/20/2015 06/18/2015 In active Bactroban 2 % topica l cream RxNorm: 726170 1 Application TOP BID as needed 12/18/2014 03/30/2015 In active Cerefolin NAC 600 mg -2 mg-6 mg tablet RxNorm: 1 Tablet(s) PO daily 07/01/2014 06/25/2015 Inactive [SAVINGS FOR NON-COVERED DRUGS -- BIN:00 3585, PCN: [id number], Group: XXXXX, ID# [id number], Questions: . THIS IS NOT INSURANCE.] Kenalog 40 mg/mL tess pension for injection RxNorm: 8964237 Milliliter(s) Inj 04/01/2014 04/01/2014 In active Namenda XR 7 mg-14 m g-21 mg-28 mg capsule,sprinkle,ER 24hr,dose pack RxNorm: 543180 1 Capsule(s) PO daily 10/15/2013 11/13/2013 Inactive Namenda XR 28 mg cap mino sprinkle,ER 24hr RxNorm: 609360 1 Capsule(s) PO daily 10/15/2013 07/23/2017 In active Bactrim DS 800 mg-16 0 mg tablet RxNorm: 364186 1/2 Tablet(s) PO dale y 10/15/2013 03/30/2015 In active Voltaren 1 % topical gel RxNorm: 273709 4 Gram(s) TOP QID 09/11/2013 01/08/2014 Inactive dispense 5 tubes Bactroban 2 % topica l cream RxNorm: 694712 1 Application TOP BID 07/29/2013 08/04/2013 Inactive ciprofloxacin 500 mg tablet RxNorm: 415209 1 Tablet(s) PO BID 07/29/2013 08/04/2013 Inactive fluorouracil 5 % top ical cream RxNorm: 200973 1 Application TOP luz ly use daily x 1 week, then stop use, let tissue heal x1wk, if still dry patchy, then restart the medication x 1 week 06/25/2013 07/04/2013 Inactive levofloxacin 500 mg tablet RxNorm: 985051 1 Tablet(s) PO daily 03/26/2013 03/30/2013 Inactive Cerefolin NAC 600 mg -2 mg-6 mg tablet RxNorm: 1 Tablet(s) PO daily 11/05/2012 10/30/2013 Inactive Kenalog 40 mg/mL Tess p for Injection RxNorm: 5064202 1 Milliliter(s) Inj 06/29/2012 06/29/2012 In active Exelon 9.5 mg/24 ricki r Transderm 24 hr Patch RxNorm: 240784 Patch 24 hr TD APPLY 1 PATCH DAILY DIRECTED 04/25/2012 08/20/2012 Inactive omeprazole 20 mg cap mino,delayed release RxNorm: 292715 1 Capsule(s) PO daily 04/09/2012 04/03/2013 In active omeprazole 20 mg cap mino,delayed release RxNorm: 151115 Capsule(s) PO TAKE 1 CAPSULE BY MOUTH EVERY DAY 04/09/2012 01/19/2015 Inactive warfarin 4 mg tablet RxNorm: 749744 1 Tablet(s) PO 11/28/2011 11/21/2012 Inactive TAKE 1 TABLET BY MOUTH DAILY Cerefolin NAC 600 mg -2 mg-6 mg tablet RxNorm: 1 Tablet(s) PO daily 11/28/2011 11/04/2012 Inactive warfarin 4 mg tablet RxNorm: 418310 Tablet(s) PO 08/07/2011 11/27/2011 Inactive TAKE 1 TABLET BY MOUTH DAILY Flector 1.3 % [place] ve Patch RxNorm: 730788 1 Application TOP BID 07/12/2011 02/06/2012 Inactive levofloxacin 500 mg Tab RxNorm: 951906 1 Tablet(s) PO daily 07/12/2011 07/16/2011 Inactive nystatin 100,000 uni t/mL Oral Susp RxNorm: 655602 3 Milliliter(s) BUCC TID 07/12/2011 07/21/2011 In active lisinopril 20 mg Tab RxNorm: 494904 1 Tablet(s) PO daily 04/12/2011 04/05/2012 Inactive TAKE ONE TABLET BY MOUTH DAILY;Patient requests 90 day supply omeprazole 20 mg cap mino,delayed release RxNorm: 900770 1 Capsule(s) PO daily 04/12/2011 04/05/2012 In active Namenda 10 mg Tab RxNorm: 469853 1 Tablet(s) PO BID 04/12/2011 04/05/2012 Inactive metoprolol succinate ER 50 mg 24 hr Tab RxNorm: 575857 1 Tablet(s) PO daily 04/12/2011 04/05/2012 In active ropinirole 1 mg Tab RxNorm: 470961 1 Tablet(s) PO daily 04/12/2011 04/05/2012 Inactive TAKE 1 TABLET BY MOUTH EVERY NIGHT AT BE DTIME;Patient requests 90 day supply Bactrim DS 800 mg-16 0 mg Tab RxNorm: 329425 1/2 Tablet(s) PO daily 04/12/2011 04/05/2012 Inactive Exelon 9.5 mg/24 ricki r Transderm 24 hr Patch RxNorm: 232206 1 Patch TD daily 04/12/2011 04/05/2012 In active melatonin 3 mg Tab RxNorm: 125706 1 Tablet(s) PO QHS 04/11/2011 No Stop Date Active Fish Oil 900 mg-1,40 0 mg Cap, Delayed Release RxNorm: 1 Capsule(s) PO BID 04/11/2011 10/27/2015 In active Tylenol Arthritis 65 0 mg Tab RxNorm: 6037648 2 Tablet(s) PO QAM 04/11/2011 10/27/2015 Inactive Bactrim DS 800 mg-16 0 mg Tab RxNorm: 142058 1/2 Tablet(s) PO daily 04/11/2011 04/11/2011 Inactive lisinopril 20 mg Tab RxNorm: 440646 Tablet(s) PO 04/07/2011 04/11/2011 Inactive TAKE ONE TABLET BY MOUTH DAILY;Patient requests 90 day supply ropinirole 1 mg Tab RxNorm: 071560 Tablet(s) PO 04/07/2011 04/11/2011 Inactive TAKE 1 TABLET BY MOUTH EVERY NIGHT AT BEDTIME;Patient requests 90 day supply lisinopril 20 mg Tab RxNorm: 652818 1 Tablet(s) PO daily 04/06/2011 04/06/2011 Inactive ropinirole 1 mg Tab RxNorm: 748612 1 Tablet(s) PO daily 04/06/2011 04/06/2011 Inactive Influenza Virus Vacc ine 0.5 mL RxNorm: IM 01/11/2011 01/11/2011 Inactive Osteo Bi-Flex Triple Strength RxNorm: 2 PO daily No S tart Date Active Bactrim DS 800 mg-16 0 mg tablet RxNorm: 120810 1/2 Tablet(s) PO dale y No Start Date Active isosorbide mononitra te ER 30 mg tablet,extended release 24 hr RxNorm: 737286 1 Tablet(s) PO daily No Start Date Active Vitamin B-12 5,000 m cg/mL sublingual drops RxNorm: 7479910 1 Milliliter(s) SL d aily No Start Date Active Tylenol Extra Streng th 500 mg tablet RxNorm: 874065 2 Tablet(s) PO BID No Start Date Active aspirin 81 mg Tab, D elayed Release RxNorm: 986126 1 Tablet(s) PO daily No Start Date Active warfarin 4 mg tablet RxNorm: 938278 1 Tablet(s) PO daily No Start Date Active Centrum Silver Oral RxNorm: Oral No Start Date Active lisinopril 20 mg tablet RxNorm: 750670 1 Tablet(s) PO daily No Start Date Active Fish Oil 300 mg-1,00 0 mg capsule RxNorm: 049052 1 Capsule(s) PO daily No Start Date Active Calcium 500 + D (D3) Oral RxNorm: Oral No Start D ate Active Exelon 13.3 mg/24 ho ur Transderm 24 hr Patch RxNorm: 9994650 TD No Start Date Active metoprolol succinate ER 50 mg tablet,extended release 24 hr RxNorm: 349165 1 Tablet(s) PO daily No Start Date Active Cerefolin NAC 600 mg -2 mg-6 mg tablet RxNorm: 1 Tablet(s) PO daily No Start Date 11/27/2011 Inactive Lipitor 40 mg tablet RxNorm: 196746 1 Tablet(s) PO daily ordered by dr broussard No Start Date 08/08/2017 Inactive lisinopril 20 mg Tab RxNorm: 531182 1 Tablet(s) PO daily No Start Date 04/05/2011 Inactive hydrocodone-acetamin ophen 5 mg-325 mg tablet RxNorm: 1762375 1 Tablet(s) PO BID No Start Date 01/19/2015 Inactive omeprazole 20 mg Cap , Delayed Release RxNorm: 549417 1 Capsule(s) PO daily No Start Date 04/11/2011 Inactive metoprolol succinate ER 50 mg 24 hr Tab RxNorm: 815146 1 Tablet(s) PO daily No Start Date 04/11/2011 Inactive Exelon 9.5 mg/24 ricki r Transderm 24 hr Patch RxNorm: 434769 1 Patch TD daily No Start Date 04/11/2011 Inactive warfarin 4 mg Tab RxNorm: 290142 1 Tablet(s) PO daily No Start Date 08/06/2011 Inactive multivitamin Oral RxNorm: Oral No Start Date 07/26/2016 Inactive melatonin 3 mg Tab RxNorm: 678670 Oral No Start Date 04/10/2011 Inactive ropinirole 1 mg tablet RxNorm: 936798 1 Tablet(s) PO daily No Start Date 01/16/2018 Inactive iron 134 mg (27 mg i iron) Tab RxNorm: 695735 1 Tablet(s) PO daily No Start Date 10/26/2015 Inactive Fish Oil 900 mg-1,40 0 mg Cap, Delayed Release RxNorm: 1 Capsule(s) PO daily No Start Date 04/10/2011 Inactive Bactrim DS 800 mg-16 0 mg Tab RxNorm: 715631 Oral No S tart Date 04/10/2011 Inactive metoprolol tartrate 50 mg Tab RxNorm: 048709 1 Tablet(s) PO daily No Start Date 04/10/2011 Inactive Tylenol Arthritis 65 0 mg Tab RxNorm: 5882517 Oral No Start Date 04/10/2011 Inactive Namenda 10 mg Tab RxNorm: 452850 1 Tablet(s) PO BID No Start Date 04/11/2011 Inactive ropinirole 1 mg Tab RxNorm: 597451 1 Tablet(s) PO daily No Start Date 04/05/2011 Inactive Medication Administered Medication Codes Instruc tions Start Date Status Kenalog 40 mg/mL suspension for injection RxNorm: 7323423 Milliliter 04/01/2014 No longer Active Kenalog 40 mg/mL Susp for Injection RxNorm: 4332955 1Milliliter 06/29/2012 N o longer Active Influenza [...] completed Assessments Condition Codes Effectiv e Dates Otorrhagia, bilateral ICD-10: H92.23 ICD-9: 388.69 06/26/2018 [...] immunization ICD-10: Z 23 ICD-9: V04.81 01/25/2017 Otalgia, left ear ICD-10: H92.02 ICD-9: 388.70 12/21/2016 Abnormal weight loss ICD-10: R63.4 ICD-9: 783.21 [...] Reason For Visit Effective Dates Notes earache 06/26/2018 blood pressure followup 03/27/2018 hypertension [...] Item Item Code Result Date Comp Metabolic Xhd197 NA 143 mEq/L 08/08/2017 Comp Metabolic Ykf650 K 5.3 mEq/L 08/08/2017 Comp Metabolic Yyv391 CL 112 mEq/L 08/08/2017 Comp Metabolic Rau006 CO2 27.0 mEq/L 08/08/2017 Comp Metabolic Sqe086 AN ION GAP 9 08/08/2017 Comp Metabolic Ioy602 GL UCOSE 88 mg/dL 08/08/2017 Comp Metabolic Pve504 Cr eat 1.1 mg/dL 08/08/2017 Comp Metabolic Krv328 eG FR 71 ml/min/1.73m2 08/08 Comp Metabolic Brz075 BUN 26 mg/dL 08/08/2017 Comp Metabolic Biy979 B/ C Ratio 24.5 Ratio 08/08/2017 Comp Metabolic Zcb408 CA LCIUM 9.0 mg/dL 08/08/2017 Comp Metabolic Ovt282 AL K PHOS 49 U/L 08/08/2017 Comp Metabolic Dgm160 T(SGOT) 32 U/L 08/08/2017 Comp Metabolic Loq636 AL T(SGPT) 25 U/L 08/08/2017 Comp Metabolic Jyl252 BI LI T 0.7 mg/dL 08/08/2017 Comp Metabolic Idl065 AL BUMIN 4.2 g/dL 08/08/2017 Comp Metabolic Zoz662 TP RO 6.0 g/dL 08/08/2017 Comp Metabolic Bqe652 GL OB 1.9 g/dL 08/08/2017 Comp Metabolic Xss764 A/ G Ratio 2.2 Ratio 08/08/2017 Comp Metabolic Xks493 Os mo 289 mOsmo 08/08/2017 Lipid Ord30 CHOL 110 mg/dL 08/08/2017 Lipid Ord30 HDL 57.0 mg/dl 08/08/2017 Lipid Ord30 TRIG 83 mg/dL 08/08/2017 Lipid Ord30 LDL 36 mg/dL 08/08/2017 Lipid Ord30 C/HDL 1.9 Ratio 08/08/2017 Comp Metabolic Gay571 NA 141 mEq/L 01/28/2016 Comp Metabolic Hvo541 K 4.5 mEq/L 01/28/2016 Comp Metabolic Wrm596 CL 111 mEq/L 01/28/2016 Comp Metabolic Hzy202 CO2 27.0 mEq/L 01/28/2016 Comp Metabolic Trj998 AN ION GAP 8 01/28/2016 Comp Metabolic Ljz212 GL UCOSE 88 mg/dL 01/28/2016 Comp Metabolic Hoc273 Cr eat 1.1 mg/dL 01/28/2016 Comp Metabolic Bnx928 eG FR 69 ml/min/1.73m2 01/27 Comp Metabolic Sxu975 BUN 23 mg/dL 01/28/2016 Comp Metabolic Hps293 B/ C Ratio 21.3 Ratio 01/28/2016 Comp Metabolic Xtb753 CA LCIUM 9.0 mg/dL 01/28/2016 Comp Metabolic Yjy365 AL K PHOS 48 U/L 01/28/2016 Comp Metabolic Qmw524 T(SGOT) 28 U/L 01/28/2016 Comp Metabolic Qxa632 AL T(SGPT) 20 U/L 01/28/2016 Comp Metabolic Iio290 BI LI T 0.8 mg/dL 01/28/2016 Comp Metabolic Hia331 AL BUMIN 4.0 g/dL 01/28/2016 Comp Metabolic Bte985 TP RO 6.0 g/dL 01/28/2016 Comp Metabolic Oxh170 GL OB 2.0 g/dL 01/28/2016 Comp Metabolic Xka946 A/ G Ratio 2.0 Ratio 01/28/2016 Comp Metabolic Syn101 Os mo 284 mOsmo 01/28/2016 Lipid Ord30 [...] 34.5 pg 01/28/2016 Cbc With Differential Ord2 Millard% 10.0 % 01/28/2016 Cbc With Differential Ord2 [...] 1.17 K/ul 01/28/2016 Cbc With Differential Ord2 Millard ABS# 0.6 K/ul 01/28/2016 Cbc With Differential Ord2 Eos ABS# 0.1 K/ul 01/28/2016 Cbc With Differential Ord2 Baso ABS# 0.0 K/ul 01/28/2016 Total Psa Ord10 PSA 2.96 ng/mL 01/28/2016 Pt Amc1296 PT 25.8 seconds 08/07/2015 Pt Svv3786 INR 2.5 08/07/2015 Pt Mfa5613 Low Intensity - 1.5-2.0 08/07/2015 Pt Bgn3510 Mod intensity - 2.0-3.0 08/07/2015 Pt Aqm2778 Hi intensity - 3.0-4.0 08/07/2015 Lipid Ord30 CHOL 102 mg/dL 08/07/2015 Lipid Ord30 HDL 50.0 mg/dl 08/07/2015 Lipid Ord30 TRIG 73 mg/dL 08/07/2015 Lipid Ord30 LDL 37 mg/dL 08/07/2015 Lipid Ord30 C/HDL 2.0 Ratio 08/07/2015 Hepatic Tow209 ALBUMIN 4.0 g/dL 08/07/2015 Hepatic Idt201 TPRO 6.0 g/dL 08/07/2015 Hepatic Tks384 GLOB 2.0 g/dL 08/07/2015 Hepatic Kmv393 A/G Ratio 2.0 Ratio 08/07/2015 Hepatic Ipp470 ALK PHOS 47 U/L 08/07/2015 Hepatic Eah922 ALT(SGPT) 20 U/L 08/07/2015 Hepatic Byh696 AST(SGOT) 26 U/L 08/07/2015 Hepatic Vmc361 BILI T 0.6 mg/dL 08/07/2015 Hepatic Rhk229 BILI D 0.2 mg/dL 08/07/2015 Hepatic Nnu428 BILI I 0.4 mg/dL 08/07/2015 Pt Tau0794 PT 24.3 seconds 12/22/2014 Pt Rzo9098 INR 2.3 12/22/2014 Pt Nlu4304 Low Intensity - 1.5-2.0 12/22/2014 Pt Vpa9205 Mod intensity - 2.0-3.0 12/22/2014 Pt Dud4863 Hi intensity - 3.0-4.0 12/22/2014 URINALYSIS NONAUTO W/O SCOPE 88081 Specific [place] 1.030 DateTime(Free Text in ) URINALYSIS NONAUTO W/O SCOPE 95399 PH 6.5 DateTime(Free Ryan t in ) URINALYSIS NONAUTO W/O SCOPE 87683 GLUCOSE neg DateTime(Free Ryan t in ) URINALYSIS NONAUTO W/O SCOPE 34303 Protein trace DateTime(Free T ext in ) URINALYSIS NONAUTO W/O SCOPE 56960 Blood 3+ DateTime(Free Text in ) URINALYSIS NONAUTO W/O SCOPE 24221 Bilirubin neg DateTime(Free Ryan t in Apr) URINALYSIS NONAUTO W/O SCOPE 49903 Ketones neg DateTime(Free Ryan t in Apr) URINALYSIS NONAUTO W/O SCOPE 35655 Urobilinogen neg DateTime(Free Text in Aprima) URINALYSIS NONAUTO W/O SCOPE 65468 Nitrite neg DateTime(Free Ryan t in Apr) URINALYSIS NONAUTO W/O SCOPE 55068 Leukocytes neg DateTime(Free Text in Apr) Review of Systems System Result Effective Dates Constitutional No recent illness 06/26/2018 Constitutional No [...] clear 01/13/2014 None Full Exam - General 1995 Ears/Nose/Throat [...] inspection of skin Dermatitis: erythema 08/22/2013 right anabaptism, no open are as, scabbed lesion healed [...] palp - head/face Location: on the right anabaptism 08/08/2013 --Improved Full Exam - Dermatology Integument [...] palp - head/face Location: on the right anabaptism 07/29/2013 None Full Exam - Dermatology Integument [...] inspection of skin Dermatitis: erythema 06/25/2013 left anabaptism, with irritat ed center of lesion Full [...] inspection of skin Dermatitis: erythema 03/26/2013 left anabaptism, with irritat ed center of lesion Full [...] to right cheek Full Exam - General 1995 Abdomen abdominal exam Overall: normal bowel sounds 11/20/2012 None Full Exam - General 1995 Musculoskeletal head and neck Overall: head atraumatic 11/20/2012 None Full Exam - General 1995 [...] General 1994 Ears/Nose/Throat lips/teeth/gingiva Overall: benign lips 05/21/2012 None [...] benign 05/21/2012 None Full Exam - General 1995 [...] swelling 07/12/2011 None Full Exam - General 1995 Musculoskeletal lower extremity Inspection - knee: presence [...] VACC PRSV FREE I NC ANTIG CPT-4: 73131 01/25/2017 PPPS, SUBSEQ VISIT CPT- 4: G0439 08/05/2016 ADMIN PNEUMOCOCCAL V ACCINE SNOMED CT: 80465823 CPT-4: G0009 04/26/2016 Pneumococcal Polysac charide Vaccine, 23-Valent, Ad Formatting Model/CDA Sections, Assigned to/Raquel Shelley CPT-4: 38213Bvbmjvt 04/26/2016 ADMIN INFLUENZA VIRU S VAC CPT-4: G0008 01/27/2016 FLU VACC 4 JULISA 3 YRS PLUS IM Formatting Model/CDA Sections, Assigned to/Raquel Shelley SNOMED CT: 92804950 CPT-4: 75880Uykkftb 01/27/2016 ADMIN INFLUENZA VIRU S VAC Formatting Model/CDA Sections, Assigned to CPT-4: N8088Nmvsout 01/20/2015 FLU VACC 4 JULISA 3 YRS PLUS IM SNOMED CT: 73473377 CPT-4: 06838 01/20/2015 DRAIN/INJECT JOINT/B URSA CPT-4: 69022 04/01/2014 TRIAMCINOLONE ACET I [place] NOS CPT-4: J3301 04/01/2014 URINALYSIS NONAUTO W /O SCOPE CPT-4: 85545 04/01/2014 ADMIN INFLUENZA VIRU S VAC Assigned to/Raquel Shelley CPT-4: L2150Cuzqhpw 01/13/2014 FLU VAC NO PRSV 4 VA L 3 YRS+ Assigned to/Raquel Shelley CPT-4: 29242Ezpgdmb 01/13/2014 PRESCRIP TRANSMIT A ERX SY CPT-4: G8553 03/26/2013 ADMIN INFLUENZA VIRU S VAC CPT-4: G0008 01/14/2013 FLULAVAL VACC, 3 YRS & >, IM CPT-4: Q2036 01/14/2013 DESTRUCT PREMALG LESION CPT-4: 00101 12/25/2012 PRESCRIP TRANSMIT A ERX SY CPT-4: G8553 08/21/2012 DRAIN/INJECT JOINT/B URSA CPT-4: 09924 06/28/2012 TRIAMCINOLONE ACET I [place] NOS CPT-4: J3301 06/28/2012 ADMIN INFLUENZA VIRU S VAC CPT-4: G0008 02/14/2012 FLULAVAL VACC, 3 YRS & >, IM CPT-4: Q2036 02/14/2012 URINALYSIS NONAUTO W /O SCOPE CPT-4: 95585 07/12/2011 PRESCRIP TRANSMIT A ERX SY CPT-4: G8553 07/12/2011 ADMIN INFLUENZA VIRU S VAC CPT-4: G0008 01/11/2011 FLULAVAL VACC, 3 YRS & >, IM CPT-4: Q2036 01/11/2011 Vital Signs Date Vital 06/26/2018 Blood Pressure 1: 128/76 Code: 8480-6 BMI: 21.6 Code: 75332-9 Heart Rate 1: 82 bpm Height: 5'7" SpO2: 95% Weight: 138 lbs 03/27/2018 Blood Pressure 1: 122/70 Code: 8480-6 BMI: 21.1 Code: 61073-7 Heart Rate 1: 76 bpm Height: 5'7" SpO2: 96% Weight: 135 lbs 02/14/2018 Blood Pressure 1: 102/58 Code: 8480-6 BMI: 21.5 Code: 26361-4 Heart Rate 1: 78 bpm Height: 5'7" SpO2: 98% Weight: 137 lbs 11/08/2017 Blood Pressure 1: 132/68 Code: 8480-6 BMI: 21.9 Code: 10278-0 Heart Rate 1: 66 bpm Height: 5'7" SpO2: 98% Weight: 140 lbs 08/11/2017 Blood Pressure 1: 11868 Code: 8480-6 BMI: 22.2 Code: 94007-9 Heart Rate 1: 63 bpm Height: 5'7" SpO2: 98% Waist Measure (cm): 61 cm Weight: 142 lbs 08/09/2017 Blood Pressure 1: 11868 Code: 8480-6 BMI: 22.4 Code: 53625-5 Heart Rate 1: 60 bpm Height: 5'7" SpO2: 98% Weight: 143 lbs 04/11/2017 Blood Pressure 1: 122/68 Code: 8480-6 BMI: 23.0 Code: 95696-3 Heart Rate 1: 65 bpm Height: 5'7" SpO2: 98% Weight: 147 lbs 01/25/2017 Blood Pressure 1: 136/58 Code: 8480-6 BMI: 23.0 Code: 17793-3 Heart Rate 1: 63 bpm Height: 5'7" SpO2: 96% Weight: 147 lbs 12/21/2016 Blood Pressure 1: 112/52 Code: 8480-6 BMI: 23.0 Code: 52279-8 Heart Rate 1: 73 bpm Height: 5'7" SpO2: 97% Weight: 147 lbs 12/01/2016 Blood Pressure 1: 128/76 Code: 8480-6 BMI: 22.7 Code: 46753-7 Heart Rate 1: 67 bpm Height: 5'7" SpO2: 95% Weight: 145 lbs 10/25/2016 Blood Pressure 1: 128/70 Code: 8480-6 BMI: 23.5 Code: 06383-2 Heart Rate 1: 62 bpm Height: 5'7" SpO2: 96% Weight: 150 lbs 08/05/2016 Blood Pressure 1: 110/58 Code: 8480-6 BMI: 23.3 Code: 18613-1 Heart Rate 1: 65 bpm Height: 5'7" SpO2: 95% Waist Measure (cm): 102 cm Weight: 149 lbs 07/26/2016 Blood Pressure 1: 112/64 Code: 8480-6 BMI: 23.3 Code: 59123-4 Heart Rate 1: 62 bpm Height: 5'7" SpO2: 95% Weight: 149 lbs 04/26/2016 Blood Pressure 1: 124/68 Code: 8480-6 BMI: 23.8 Code: 28018-9 Heart Rate 1: 64 bpm Height: 5'7" SpO2: 98% Weight: 152 lbs 01/27/2016 Blood Pressure 1: 118/70 Code: 8480-6 BMI: 24.0 Code: 33222-8 Heart Rate 1: 64 bpm Height: 5'7" SpO2: 97% Weight: 153 lbs 10/27/2015 Blood Pressure 1: 114/60 Code: 8480-6 BMI: 23.7 Code: 95513-3 Heart Rate 1: 61 bpm Height: 5'7" SpO2: 97% Weight: 151 lbs 8 oz 06/30/2015 Blood Pressure 1: 102/60 Code: 8480-6 BMI: 23.9 Code: 38542-5 Heart Rate 1: 70 bpm Height: 5'7" SpO2: 97% Weight: 152 lbs 8 oz 03/31/2015 Blood Pressure 1: 122/64 Code: 8480-6 BMI: 23.2 Code: 75075-2 Heart Rate 1: 64 bpm Height: 5'7" SpO2: 97% Weight: 148 lbs 03/17/2015 Blood Pressure 1: 142/76 Code: 8480-6 BMI: 23.5 Code: 63876-1 Heart Rate 1: 64 bpm Height: 5'7" SpO2: 98% Weight: 150 lbs 01/20/2015 Blood Pressure 1: 128/64 Code: 8480-6 BMI: 22.9 Code: 28037-9 Heart Rate 1: 72 bpm Height: 5'7" SpO2: 96% Weight: 146 lbs 12/15/2014 Blood Pressure 1: 110/60 Code: 8480-6 BMI: 21.9 Code: 70937-5 Heart Rate 1: 88 bpm Height: 5'7" SpO2: 96% Weight: 140 lbs 09/30/2014 Blood Pressure 1: 146/70 Code: 8480-6 BMI: 23.5 Code: 57705-2 Heart Rate 1: 53 bpm Height: 5'7" SpO2: 94% Weight: 150 lbs 07/01/2014 Blood Pressure 1: 140/62 Code: 8480-6 BMI: 23.6 Code: 95595-8 Heart Rate 1: 70 bpm Height: 5'7" Weight: 151 lbs 04/01/2014 Blood Pressure 1: 118/78 Code: 8480-6 BMI: 24.5 Code: 38665-7 Heart Rate 1: 56 bpm Height: 5'7" Weight: 156 lbs 8 oz 01/13/2014 Blood Pressure 1: 138/64 Code: 8480-6 BMI: 24.4 Code: 27617-1 Heart Rate 1: 54 bpm Height: 5'7" SpO2: 96% Weight: 156 lbs 10/15/2013 Blood Pressure 1: 124/74 Code: 8480-6 BMI: 24.6 Code: 58714-4 Heart Rate 1: 60 bpm Height: 5'7" Weight: 157 lbs 09/11/2013 Blood Pressure 1: 120/62 Code: 8480-6 BMI: 23.6 Code: 59876-8 Heart Rate 1: 64 bpm Height: 5'7" Weight: 151 lbs 08/22/2013 Blood Pressure 1: 120/64 Code: 8480-6 BMI: 24.4 Code: 48346-0 Heart Rate 1: 64 bpm Height: 5'7" Weight: 156 lbs 08/08/2013 Blood Pressure 1: 102/62 Code: 8480-6 BMI: 24.7 Code: 52961-5 Heart Rate 1: 60 bpm Height: 5'7" Weight: 158 lbs 07/29/2013 Blood Pressure 1: 114/74 Code: 8480-6 Heart Rate 1: 60 bpm 06/25/2013 Blood Pressure 1: 128/70 Code: 8480-6 BMI: 24.1 Code: 67748-5 Heart Rate 1: 56 bpm Height: 5'7" SpO2: 98% Weight: 154 lbs 03/26/2013 Blood Pressure 1: 132/78 Code: 8480-6 BMI: 24.6 Code: 85954-4 Heart Rate 1: 60 bpm Height: 5'7" SpO2: 98% Temperature: 36.5 (C ) / 97.7 (F) Weight: 157 lbs 12/25/2012 Blood Pressure 1: 98/60 Code: 8480-6 Heart Rate 1: 64 bpm Weight: 160 lbs 11/20/2012 Blood Pressure 1: 136/80 Code: 8480-6 BMI: 24.6 Code: 11447-3 Heart Rate 1: 68 bpm Height: 5'7" Weight: 157 lbs 08/21/2012 Blood Pressure 1: 112/56 Code: 8480-6 BMI: 23.8 Code: 17626-7 Heart Rate 1: 60 bpm Height: 5'7" Weight: 152 lbs 06/28/2012 Blood Pressure 1: 128/82 Code: 8480-6 Heart Rate 1: 80 bpm Respiratory Rate: 20 bpm Weight: 149 lbs 05/21/2012 Blood Pressure 1: 116/64 Code: 8480-6 BMI: 23.6 Code: 45144-1 Heart Rate 1: 72 bpm Height: 5'7" Weight: 151 lbs 04/26/2012 Blood Pressure 1: 140/80 Code: 8480-6 Heart Rate 1: 76 bpm Respiratory Rate: 16 bpm Temperature: 36.7 (C) / 98.0 (F) Weight: 02/14/2012 Blood Pressure 1: 116/58 Code: 8480-6 BMI: 23.6 Code: 40927-8 Heart Rate 1: 64 bpm Height: 5'7" Respiratory Rate: 18 bpm Weight: 151 lbs 10/11/2011 Blood Pressure 1: 100/54 Code: 8480-6 Heart Rate 1: 60 bpm Respiratory Rate: 16 bpm Weight: 143 lbs 07/12/2011 Blood Pressure 1: 130/62 Code: 8480-6 BMI: 22.9 Code: 79107-4 Heart Rate 1: 62 bpm Height: 5'7" Respiratory Rate: 16 bpm Weight: 146 lbs 05/11/2011 Blood Pressure 1: 120/64 Code: 8480-6 BMI: 23.6 Code: 09466-8 Heart Rate 1: 72 bpm Height: 5'7" Respiratory Rate: 16 bpm Weight: 151 lbs 04/12/2011 Blood Pressure 1: 120/62 Code: 8480-6 BMI: 24.6 Code: 25590-3 Heart Rate 1: 60 bpm Height: 5'7" Respiratory Rate: 16 bpm Weight: 157 lbs 01/11/2011 Blood Pressure 1: 126/68 Code: 8480-6 BMI: 24.7 Code: 10135-9 Heart Rate 1: 50 bpm Height: 5'7" Respiratory Rate: 12 bpm Weight: 158 lbs Functional Status No Functional Status data History of Present Illness Symptom Name Status Resu lt Effective Date Notes Location both ears 06/26/2018 None Quality acute [...] lesion Location on the forehead 07/29/2013 right anabaptism skin lesion Onset and Resolution ongoing 07/29/2013 [...] down to 130lbs but since moving to [place] has gained some weight back hypertension Quality [...] remembering names 01/11/2011 None 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 P ATIENT, LEVEL III Diagnosis: Otorrhagia, bilateral[ICD10: H92.23] Nay Martinez MD, [facility] CPT-4: 99898 06/26/2018 ([id number]) 33409 EST. P ATIENT, LEVEL III Diagnosis: Essential (primary) hypertension[ICD10: I10] Diagnosis: Slow transit constipation[ICD10: K59.01] Nay Martinez MD, [facility] CPT-4: 18274 03/27/2018 [id number]) 42409 EST. P ATIENT, LEVEL III Diagnosis: Slow transit constipation[ICD10: K59.01] Diagnosis: Other hypotension[ICD10: I95.89] Nay Martinez MD, [facility] CPT-4: 09545 02/14/2018 [id number]) 98087 EST. P ATIENT, LEVEL IV Diagnosis: Essential (primary) hypertension[ICD10: I10] Diagnosis: Alzheimer's disease with early onset[ICD10: G30.0] Diagnosis: Actinic keratosis[ICD10: L57.0] Nay Martinez MD, [facility] CPT-4: 44907 11/08/2017 [id number]) 53154 EST. P ATIENT, LEVEL IV Diagnosis: Essential (primary) hypertension[ICD10: I10] Diagnosis: Mixed hyperlipidemia[ICD10: E78.2] Diagnosis: Alzheimer's disease with early onset[ICD10: G30.0] Nay Martinez MD, [facility] CPT-4: 62740 08/09/2017 ([id number]) 94450 EST. P ATIENT, LEVEL IV Diagnosis: Essential (primary) hypertension[ICD10: I10] Diagnosis: Alzheimer's disease with early onset[ICD10: G30.0] Diagnosis: Mixed hyperlipidemia[ICD10: E78.2] Diagnosis: Pain in left knee[ICD10: M25.562] Nay Martinez MD, [facility] CPT-4: 07290 04/11/2017 ([id number]) 56229 EST. P ATIENT, LEVEL III Diagnosis: Essential (primary) hypertension[ICD10: I10] Diagnosis: Encounter for immunization[ICD10: Z23] Diagnosis: Alzheimer's disease with early onset[ICD10: G30.0] Nay Martinez MD, [facility] CPT-4: 41604 01/25/2017 ([id number]) 49718 EST. P ATIENT, LEVEL III Diagnosis: Otalgia, left ear[ICD10: H92.02] Nay Martinez MD, [facility] CPT-4: 64846 12/21/2016 ([id number]) 19659 EST. [facility]: Essential (primary) hypertension[ICD10: I10] Diagnosis: Alzheimer's disease with early onset[ICD10: G30.0] Diagnosis: Abnormal weight loss[ICD10: R63.4] Nay Martinez MD, [facility] CPT- 4: 02124 12/01/2016 ([id number]) 99232 EST. P ATIENT, LEVEL IV Diagnosis: Essential (primary) hypertension[ICD10: I10] Diagnosis: Mixed hyperlipidemia[ICD10: E78.2] Nay Martinez MD, [facility] CPT- 4: 56081 10/25/2016 [id number] EST. PATIENT, LEVEL IV Diagnosis: Essential (primary) hypertension[ICD10: I10] Diagnosis: Alzheimer's disease with early onset[ICD10: G30.0] Diagnosis: Pain in left knee[ICD10: M25.562] Diagnosis: Cyst of kidney, acquired[ICD10: N28.1] Nay Martinez MD, [facility] CPT-4: 34527 07/26/2016 ([id number]) 98552 EST. P ATIENT, LEVEL IV Diagnosis: Essential (primary) hypertension[ICD10: I10] Diagnosis: Alzheimer's disease with early onset[ICD10: G30.0] Rosa Martinez MD, [facility] CPT-4: 94642 04/26/2016 ([id number]) 08632 EST. P ATIENT, LEVEL IV Diagnosis: Essential (primary) hypertension[ICD10: I10] Diagnosis: Alzheimer's disease with early onset[ICD10: G30.0] Diagnosis: VACCIN FOR INFLUENZA[ICD10: Z23] Nay Martinez MD, [facility] CPT-4: 29773 01/27/2016 ([id number]) 58991 EST. P ATIENT, LEVEL IV Diagnosis: Essential (primary) hypertension[ICD10: I10] Diagnosis: Alzheimer's disease with early onset[ICD10: G30.0] Nay Martinez MD, [facility] CPT-4: 53181 10/27/2015 ([id number]) 58119 EST. P ATIENT, LEVEL IV Diagnosis: Essential (primary) hypertension[ICD10: I10] Diagnosis: Alzheimer's disease with early onset[ICD10: G30.0] Nay Martinez MD, [facility] CPT-4: 78657 06/30/2015 ([id number]) 24766 EST. P ATIENT, LEVEL IV Diagnosis: Essential (primary) hypertension[ICD10: I10] Diagnosis: Alzheimer's disease with early onset[ICD10: G30.0] Nay Martinez MD, [facility] CPT-4: 13384 03/31/2015 91437 EST. PATIENT, LEVEL III Diagnosis: Low back pain[ICD10: M54.5] Fern Martinez MD, [facility] CPT-4: 89508 03/17/2015 ([id number]) 24883 EST. P ATIENT, LEVEL IV Diagnosis: ESSENTIAL HYPERTENSION[ICD9: 401.9] Diagnosis: Encounter for long-term (current) use of anticoagulants[ICD9: V58.61] Diagnosis: Skin change[ICD9: 782.9] Diagnosis: Change in mole[ICD9: 216.9] Diagnosis: VACCIN FOR INFLUENZA[ICD9: V04.81] Nay Martinez MD, [facility] CPT- 4: 48316 01/20/2015 ([id number]) 69719 EST. P ATIENT, LEVEL IV Diagnosis: ESSENTIAL HYPERTENSION[ICD9: 401.9] Diagnosis: OSTEOARTHROSIS-MULT SITE[ICD9: 715.80] Diagnosis: Knee pain[ICD9: 719.46] Diagnosis: ENCNTR LONG-ANTICOAG USE[ICD9: V58.61] [facility] CPT-4: 11343 12/15/2014 ([id number]) 31780 EST. P ATIENT, LEVEL IV Diagnosis: ESSENTIAL HYPERTENSION[ICD9: 401.9] Diagnosis: OSTEOARTHROSIS-MULT SITE[ICD9: 715.80] Diagnosis: Knee pain[ICD9: 719.46] [facility] CPT-4: 88958 09/30/2014 ([id number]) 73944 EST. P ATIENT, LEVEL IV Diagnosis: Skin cancer[ICD9: 173.90] Diagnosis: ESSENTIAL HYPERTENSION[ICD9: 401.9] Diagnosis: ALZHEIMER'S DISEASE[ICD9: 331.0] Diagnosis: Knee pain[ICD9: 719.46] [facility] CPT-4: 73612 07/01/2014 ([id number]) 46561 EST. P ATIENT, LEVEL IV Diagnosis: ESSENTIAL HYPERTENSION[ICD9: 401.9] Diagnosis: Dysuria[ICD9: 788.1] Diagnosis: Knee pain, bilateral[ICD9: 719.46] Diagnosis: Osteoarthritis[ICD9: 715.90] Diagnosis: Dementia[ICD9: 294.8] [facility] CPT-4: 70528 04/01/2014 ([id number]) 16681 EST. P ATIENT, LEVEL IV Diagnosis: ESSENTIAL HYPERTENSION[ICD9: 401.9] Diagnosis: VACCIN FOR INFLUENZA[ICD10: Z23] Diagnosis: HYPERLIPIDEMIA[ICD9: 272.4] Diagnosis: ALZHEIMER'S DISEASE[ICD9: 331.0] Nay Martinez MD, [facility] CPT-4: 37256 01/13/2014 ([id number]) 60896 EST. P ATIENT, LEVEL IV Diagnosis: Dementia[ICD9: 294.8] Diagnosis: Alzheimer's dementia[ICD9: 331.0] Diagnosis: OSTEOARTHROSIS-MULT SITE[ICD9: 715.80] Diagnosis: ESSENTIAL HYPERTENSION[ICD9: 401.9] Nay Martinez MD, [facility] CPT- 4: 22039 10/15/2013 ([id number]) 14830 EST. P ATIENT, LEVEL III Diagnosis: Knee pain, acute[ICD9: 719.46] Diagnosis: Osteoarthritis[ICD9: 715.90] Diagnosis: Gait instability[ICD9: 781.2] Nay Martinez MD, [facility] CPT-4: 36434 09/11/2013 ([id number]) 58442 EST. P ATIENT, LEVEL III Diagnosis: CELLULITIS OF FACE[ICD9: 682.0] Diagnosis: Esophageal reflux[ICD9: 530.81] Rosa Martinez MD, [facility] CPT- 4: 40104 08/22/2013 38945 EST. PATIENT, LEVEL II Diagnosis: CELLULITIS OF FACE[ICD9: 682.0] Nay Martinez MD, [facility] CPT-4: 36585 08/08/2013 ([id number]) 19072 EST. P ATIENT, LEVEL III Diagnosis: Cellulitis of anabaptism[ICD9: 682.0] Nay Martinez MD, [facility] CPT-4: 51948 07/29/2013 ([id number]) 01863 EST. P ATIENT, LEVEL IV Diagnosis: ESSENTIAL HYPERTENSION[SNOMED: 36669414] Diagnosis: ALZHEIMER'S DISEASE[ICD9: 331.0] Diagnosis: INTEGUMENT TISS SYMP NEC[ICD9: 782.9] Diagnosis: JOINT PAIN-L/LEG[ICD9: 719.46] Nay Martinez MD, [facility] CPT-4: 11766 06/25/2013 ([id number]) 73911 EST. P ATIENT, LEVEL IV Diagnosis: ESSENTIAL HYPERTENSION[SNOMED: 62968815] Diagnosis: ACTINIC KERATOSIS[ICD9: 702.0] Diagnosis: Skin cancer[ICD9: 173.90] Diagnosis: COUGH[ICD9: 786.2] Diagnosis: ACUTE BRONCHITIS[ICD9: 466.0] Nay Martinez MD, [facility] CPT-4: 85268 03/26/2013 07494 EST. PATIENT, LEVEL IV Diagnosis: ESSENTIAL HYPERTENSION[SNOMED: 80222654] Diagnosis: ALZHEIMER'S DISEASE[ICD9: 331.0] Diagnosis: JOINT PAIN-L/LEG[ICD9: 719.46] Diagnosis: MUSCSKEL SYMPT LIMB NEC[ICD9: 729.89] Nay Martinez MD, [facility] CPT-4: 93250 11/20/2012 ([id number]) 09905 EST. P ATIENT, LEVEL IV Diagnosis: ESSENTIAL HYPERTENSION[SNOMED: 15724296] Diagnosis: ALZHEIMER'S DISEASE[ICD9: 331.0] Diagnosis: ENCNTR LONG-ANTICOAG USE[ICD9: V58.61] Diagnosis: Skin change[ICD9: 782.9] Nay Martinez MD, [facility] CPT-4: 79888 08/21/2012 ([id number]) 22403 EST. P ATIENT, LEVEL III Diagnosis: SUBDURAL HEMORRHAGE[ICD9: 432.1] [facility] CPT-4: 97890 06/28/2012 ([id number]) 18738 EST. P ATIENT, LEVEL IV Diagnosis: ESSENTIAL HYPERTENSION[SNOMED: 47261591] Diagnosis: Subdural hematoma[ICD9: 432.1] Diagnosis: Encounter for long-term (current) use of anticoagulants[ICD9: V58.61] [facility] CPT-4: 98903 05/21/2012 ([id number]) Patient adm itted to the hospital from clinic (NO CHARGE) Diagnosis: Lower extremity weakness[ICD9: 729.89] Diagnosis: FALL AGAINST OBJECT[ICD9: E888.1] Diagnosis: Gait instability[ICD9: 781.2] [facility] CPT-4: 63532G 04/26/2012 ([id number]) 45780 EST. P ATIENT, LEVEL IV Diagnosis: ESSENTIAL HYPERTENSION[SNOMED: 42411670] Diagnosis: ALZHEIMER'S DISEASE[ICD9: 331.0] Diagnosis: HYPERLIPIDEMIA[ICD9: 272.4] Nay Martinez MD, [facility] CPT-4: 29360 02/14/2012 ([id number]) 41179 EST. P ATIENT, LEVEL IV Diagnosis: ALZHEIMER'S DISEASE[ICD9: 331.0] Diagnosis: Abnormal loss of weight[ICD9: 783.21] Diagnosis: Knee pain, bilateral[ICD9: 719.46] Diagnosis: ESSENTIAL HYPERTENSION[SNOMED: 00286264] Nay Martinez MD, [facility] CPT-4: 09549 10/11/2011 ([id number]) 84964 EST. P ATIENT, LEVEL IV Diagnosis: ESSENTIAL HYPERTENSION[SNOMED: 79191635] Diagnosis: JOINT PAIN-L/LEG[ICD9: 719.46] Diagnosis: Thrush[ICD9: 112.0] Diagnosis: Abdominal pain[ICD9: 789.00] Nay Mratinez MD, [facility] CPT-4: 25407 07/12/2011 ([id number]) 15279 EST. P ATIENT, LEVEL III Diagnosis: Knee pain[ICD9: 719.46] Diagnosis: OSTEOARTHROSIS-MULT SITE[ICD9: 715.80] Nay Martinez MD, [facility] CPT-4: 74461 05/11/2011 ([id number]) 23317 EST. P ATIENT, LEVEL IV Diagnosis: Alzheimer's dementia[ICD9: 331.0] Diagnosis: ESSENTIAL HYPERTENSION[SNOMED: 53038562] Nay Martinez MD, C CPT-4: 86691 04/12/2011 30626 EST. PATIENT, LEVEL IV Diagnosis: ESSENTIAL HYPERTENSION[SNOMED: 55619177] Diagnosis: HYPERLIPIDEMIA[ICD9: 272.4] Diagnosis: VACCIN FOR INFLUENZA[ICD9: V04.81] Diagnosis: Dementia[ICD9: 294.8] Nay Martinez MD, [facility] CPT-4: 01445 01/11/2011 Plan of Care Planned Activity Notes C odes Status Date Visit Plan: Nasal congestion - rx f or flonase to the [facility] - rx was called to [facility]. Blood in ears - due to pt using qtips aggressively - recommended pt to use mineral oil in ears nightly x 10 days - return to clinic in 10 days for my evaluation to see if there are any residual lesions in his ears once the dried blood is out of the ear canals. 06/26/2018 Patient Education: Patient Medication Summary Completed [...] home. 03/27/2018 Appointment: Nay Martinez WPtel: [phone] [facility] (15 min) Moderate 03/27/2018 Patient Education: Patient Medication Summary Completed 03/27/2018 App[facility]ment: [phone] ([facility]) Moderate 03/07/2018 Appointment: Nay Martinez WPtel: [facility] (15 min) Moderate 02/21/2018 Visit Plan: Constipation [...] morning. 02/14/2018 Appointment: [phone] (15 min) Moderate 02/14/2018 Patient Education: [...] symptoms - continue current medications. 11/08/2017 Appointment: Michelle Nay [facility]Ptel[phone] (15 min) Moderate 11/08/2017 Patient Education: [...] surrogate. 08/11/2017 [facility]ment: [phone] [facility] - Annual Wellness Visit 08/11/2017 [...] fat intake. 08/09/2017 Appointment: Nay [facility]el[phone] (15 min) Moderate 08/09/2017 Patient Education: [...] to medications. 04/11/2017 Appointment: Nay Martinez WPtel: [phone] [facility] (15 min) Moderate 04/11/2017 Patient Education: Patient [...] memory loss. 01/25/2017 Appointment: Nay Martinez [facility]Ptel[phone] (15 min) Moderate 01/25/2017 Patient Education: Patient Medication Summary Completed 01/25/2017 Appointment: Nay Martinez WPtel: [phone] [facility] (15 min) Moderate 01/24/2017 Visit Plan: Dried bloody debris in left ear - removed with alligator forceps, ear currette - pt to use mineral oil in the ear. 12/21/2016 Appointment: Nay Martinez WPtel: [phone] [facility] (15 min) Moderate 12/21/2016 Patient Education: Patient [...] fat intake. 12/01/2016 Appointment: Nay Martinez WPtel: [facility]9 [facility] (15 min) Moderate 12/01/2016 Patient Education: Patient [...] liver response to medications. 10/25/2016 Appointment: Nay Martineztel: [phone] [place] (15 min) Moderate 10/25/2016 Patient Education: [...] the home. 08/05/2016 Appointment: Rosa Aguilar [facility]el[phone] [facility] - Annual Wellness Visit 08/05/2016 [...] tomorrow. 07/26/2016 Appointment: Nay Martinez [facility]Ptel: [phone] [facility] [place] (15 min) Moderate 07/26/2016 Patient Education: [...] treatment. 04/26/2016 Appointment: Rosa Aguilar WPtel: [phone] [facility] [address] [place] (15 min) Moderate 04/26/2016 Patient Education: [...] of treatment. 01/27/2016 Appointment: Nay Martinez WPtel: [facility] [place] (15 min) Moderate 01/27/2016 Patient Education: [...] of treatment. 10/27/2015 Appointment: Nay Martinez WPtel: [phone] [facility] [place] (15 min) Moderate 10/27/2015 Patient Education: [...] of treatment. 06/30/2015 Appointment: Nay Martinez WPtel: [phone] [facility] (15 min) Moderate 06/30/2015 Appointment: Nay Martinez WPtel: [phone] [facility] (15 min) Moderate 06/30/2015 Patient Education: Patient [...] of treatment. 03/31/2015 Appointment: Nay Martinez WPtel: [facility]8 [facility] (15 min) Moderate 03/31/2015 Patient Education: Patient [...] cheek. -needs to be seen by Dr. Giig Anne will need this lesion surgically removed. [...] removed. 01/20/2015 Appointment: Nay Martinez WPtel: [phone] [facility] (15 min) Moderate 01/20/2015 Patient Education: Patient Medication Summary Completed 01/20/2015 Patient Education: Hypertension Completed 01/20/2015 Care Plan: Referral Order SNOMED-CT : [id number] Ordered 01/20/2015 Appointment: Nay Martinez WPtel: [facility]5 [facility] (15 min) Moderate 12/18/2014 Visit Plan: Hypertension [...] and 3.5. 12/15/2014 Appointment: Nay Martinez WPtel: [phone] [facility] (15 min) Moderate 12/15/2014 Patient Education: Patient [...] to have his knee operated on at [facility], I have placed a phone call to Dr. Ballesteros - waiting on a call back 09/30/2014 Appointment: Nay Martinez [facility]Ptel: [phone] [facility] Follow up 09/30/2014 Patient Education: Patient [...] knee. 07/01/2014 Appointment: Nay [facility]Ptel: [phone] Follow up 07/01/2014 Patient Education: Patient Medication Summary Completed 07/01/2014 Patient Education: Hypertension Completed 07/01/2014 Care Plan: Referral Order SNOMED-CT : [id number] Ordered 07/01/2014 Visit Plan: Hypertension - well [...] treatment. 04/01/2014 Appointment: Nay Martinez WPtel: [phone] [facility] Follow up 04/01/2014 Patient Education: Patient Medication [...] treatment. 01/13/2014 Appointment: Nay Martinez [facility]Ptel: [phone] [facility] Follow up 01/13/2014 Patient Education: Patient Medication Summary Completed 01/13/2014 Patient Education: Hypertension Completed 01/13/2014 Care Plan: COMPLETE CBC AUTOMATED LOINC : 79555-6 Ordered 01/13/2014 Visit Plan: Knee pain has improved - pt needs to continue with use of the voltaren gel, no change in treatment at this time, he is not interested in seeing an orthopedic surgeon until his knee pain is not controlled with the voltaren gel. 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 10/15/2013 Appointment: Nay Martinez WPtel: [address] [place], [place] [phone] Follow up 10/15/2013 Patient Education: Patient Medication Summary Completed 10/15/2013 Patient Education: Hypertension Completed 10/15/2013 Appointment: Nay Martinez WPtel: [address] [place], [place] [phone] Follow up 10/02/2013 Visit Plan: Lower leg pain - rx for voltaren gel to be used on right knee four times daily to alleviate pain in knee. Pt to use walker - RX for rolator walker. 09/11/2013 Appointment: Nay Martinez WPtel: [address] [place], [place] [phone] Other 09/11/2013 Patient Education: Patient Medication Summary [...] current treatement. 08/22/2013 Appointment: Rosa Aguilar WPtel: [address] [place], [place] [phone] Follow up 08/22/2013 Patient Education: Patient Medication Summary Completed 08/22/2013 Visit Plan: Urdunrylpex-zvflwssl-xt ntinue treatment-return in 2 weeks for follow up 08/08/2013 Appointment: Rosa Aguilar WPtel: [facility]5 [facility] [phone] Follow up 08/08/2013 Patient Education: Patient Medication [...] current plan of treatment. Skin lesion on anabaptism - pt to use flurouracil on lesions on anabaptism. OA of knees - pt to try voltaren gel. 06/25/2013 Appointment: Nay Martinez WPtel: [address] [place], [place] [phone] [place] Follow up 06/25/2013 Patient Education: Patient [...] acute conerns. 03/26/2013 Appointment: Nay Martinez WPtel: [address] [place] [address] [place] Follow up 03/26/2013 Patient Education: Patient Medication Summary Completed 03/26/2013 Patient Education: Hypertension Completed 03/26/2013 Appointment: Rosa Aguilar [facility]Ptel: [phone] [place] Nurse Visit 01/14/2013 Patient Education: Patient Medication Summary Completed 01/14/2013 Visit Plan: Wound Instructions - Pt was instruced to keep the wound clean, wash with antibacterial soap, use triple antibiotic ointment, call if redness, pustular drainage, or any other acute conerns. 12/25/2012 Appointment: Rosa Aguilar WPtel: [phone] Surgical Procedure 12/25/2012 Patient Education: Patient Medication [...] be weak. 11/20/2012 Appointment: Nay Martinez WPtel: [facility]5 [facility] [place] Follow up 11/20/2012 Patient Education: Patient [...] every days. 08/21/2012 Appointment: Nay Martinez WPtel: [facility]5 [facility] [place] Follow up 08/21/2012 Patient Education: Hypertension Completed 08/21/2012 Patient Education: Patient Medication Summary Completed 08/21/2012 Visit Plan: Subdural hematoma-recen t fall-decreased in size with tiny acute component-plan to repeat CT in 2 weeks Low back ucfq-jxckgtlxcqn-DZ joint Injection today in the office - Pt was given post - injection instructions. The pt has been advised to use antiinflammatories post injection today, ice to the injected site, call if redness, warmth, or increased pain occurs at the site of injection. 06/28/2012 Appointment: Rosa Aguilar WPtel: [address] [place], [place] [phone] [place] [address] Other 06/28/2012 Patient Education: Patient Medication Summary [...] this week. 05/21/2012 Appointment: Nay Martinez WPtel: [address] [place], [place] [phone] Hospital follow up 05/21/2012 Patient Education: Patient Medication Summary Completed 05/21/2012 Patient Education: Hypertension Completed 05/21/2012 Appointment: Nay Martinez WPtel: [address] [place], [place] [phone] Follow up 05/15/2012 Visit Plan: Fall-sudden onset of ri ght lower extremity weakness-Dr Martinez in to evaluate patient-plan to admit for observation and further work up which includes a STAT CT of the head and labs. Patient and verbalize understanding. 04/26/2012 Appointment: Nay Martinez WPtel: [address] [place], [place] [phone] balance problem, fall 1 month ago Other 04/26/2012 Patient Education: Patient Medication Summary Completed 04/26/2012 Visit Plan: Hypertension - well con mohitlled [...] of treatment. 02/14/2012 Appointment: Nay Martinez WPtel: [phone] Patient Preventative visit 02/14/2012 Patient Education: Patient [...] Weight loss - discussed the need for [place] to not loose more weight. He reports [...] office visit. 10/11/2011 Appointment: Nay Martinez WPtel: [phone] [facility] [facility] 10/11/2011 Patient Education: Patient Medication Summary Completed [...] OF BLOOD. 07/12/2011 Appointment: Nay Martinez WPtel: [facility]5 [place] [phone] Other 07/12/2011 Patient Education: Patient Medication Summary Completed 07/12/2011 Patient Education: High Blood Pressure: Essential Hypertension Completed 07/12/2011 Visit Plan: Knee pain- uncontrolled - but improving, recommend watchful waiting and to use FLECTOR PATCH, 1/4 of a patch and change twice daily.. Call if the pain worsens. 05/11/2011 Appointment: Nay Martinez WPtel: [phone] [facility] Other 05/11/2011 Patient Education: Patient Medication Summary [...] in medications. 04/12/2011 Appointment: Nay Martinez WPtel: [facility]5 [facility]66[facility] Other 04/12/2011 Patient Education: Patient Medication Summary Completed 04/12/2011 Patient Education: High Blood Pressure: Essential Hypertension Completed 04/12/2011 Visit Plan: Hypertension - well con troemed [...] in treatment at this time. 01/11/2011 Appointment: Michelle Nay WPtel: [address] [place] [address] Other 01/11/2011 Patient Education: Patient Medication Summary Completed 01/11/2011 Referral: Cris Egan Referral Relationship Referral: Dayron Ballesteros Referral Appointment Requested Referral: Kings Valles WPtel: [phone] [facility]66[facility] Referral Relationship Referral: Carl Yu Referral Relationship [...] gel. 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 Dementia - symptoms stable, but the archeology faculty member of [employer] is stopping production of the [...] twice daily.. Call if the pain worsens. use 2 ML of mineral oil or [...] congestion - rx [facility] - rx was called to [facility]. Blood in ears - due to pt using qtips aggressively - recommended pt to use mineral oil in ears nightly x 10 days - return to clinic in 10 days for my evaluation to see if there are any residual lesions in his ears once the dried blood is out of the ear canals. . Memory loss- sympt oms slightly worsening [...] INR is between 2.0 and 3.5. . Wound Instructions - Pt was instruced to keep the wound clean, wash with antibacterial soap, use triple antibiotic ointment, call if redness, pustular drainage, or any other acute conerns. use mineral oil in t he left [...] loss - increase protein, increase fat intake. try casey candy trung ws or casey [...] - right leg continues to be weak. discussed colonoscop y -patient not interested . [...] for health care surrogate. . Hypertension - we ll controlled - [...] to have his knee operated on at [facility], I have placed a phone call to Dr. Ballesteros - waiting on a call back . Hypertension - wel l controlled - [...] current plan of treatment. Skin lesion on anabaptism - pt to use flurouracil on lesions on anabaptism. OA of knees - pt to try [...] improve. Will send paperwork for back brace. joint juice, glucosa mine - at [facility] ask about welnesse liquid Glucosamine and chondroitin. [...] removed. joint juice, glucosa mine - at [employer] ([place] [employer] ask about welnesse liquid Glucosamine and chondroitin. [...] will need this lesion surgically removed. . Celllulitis-critical [facility] hospital ed-continue treatment-return in 2 weeks for follow up . Subdural hematoma- recent fall-decreased in size with tiny acute component-plan to repeat CT in 2 weeks Low back [id number] joint Injection today in the office - [...] Weight loss - discussed the need for [place] to not loose more weight. He reports [...] his next office visit. . Hypertension - we ll controlled - [...] pustular drainage, or any other acute conerns. HOLD OMEPRAOZLE WHIL E ON THE NEXIUM [...]
--- OUTSIDE RECORDS SUMMARY | 2019-07-11 12:54 | XMS REPORT | CCD ---
Author Author Omid Martinez Organization Nay Martinez MD, [facility] Address [address] [place] [address] Phone Care Team Providers Care Medical Logistics Specialist Name Role Phone Nay Martinez PP Unavailable CCM Unavailable Summary Purpose Interface Exchange Insurance Providers Payer name Policy type / Coverage type Covered democrat ID Effective Begin Date Effective End Date WPS Medicare Part B Medicare Part B [id number] Unknown [facility] icare Part B [id number] Un known Family history Mother Diagnosis Age At Onset No Family Disease Entered N/A Father Diagnosis Age At Onset No Family Disease Entered N/A Brother Diagnosis Age At Onset No Family Disease Entered N/A Social History Social History Element Codes Description Effective Dates Number of children Unknown 3 sons 02/14/2018 Living arrangements Unknown Assisted Living Moved in August 2011 to assisted living facility [facility]. 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 04/11/[address]: 300536716 Nonsmoker 04/11/2011 Has the patient ever used [...] Date Resolved Date Essential (primary) hypertension ICD-9: 401.1 ICD-10: I10 [...] ICD-9: 530.81 Active 08/22/2013 Unknown Cellulitis of hinduism ICD-9: 682.0 Active 07/29/2013 Unknown ACUTE BRONCHITIS [...] Dates Condition Status Essential (primary) hypertension ICD-9: 401.1 ICD-10: I10 [...] reflux ICD-9: 530.81 08/22/2013 Active Cellulitis of hinduism ICD-9: 682.0 07/29/2013 Active ACUTE BRONCHITIS ICD-9: [...] Date Stop Date Sta tus Fill Instructions Namenda 10 mg tablet RxNorm: 474843 1 Tablet(s) PO BID 02/07/2018 09/04/2018 Active omeprazole 20 mg cap mino,delayed release RxNorm: 083813 1 Capsule(s) PO BID 02/07/2018 09/04/2018 Ac tive omeprazole 20 mg cap mino,delayed release RxNorm: 919217 1 Capsule(s) PO BID 01/25/2018 02/06/2018 In active ropinirole 1 mg tablet RxNorm: 570891 1 Tablet(s) PO daily 01/17/2018 07/10/2019 Active Zyrtec 10 mg tablet RxNorm: 4440981 1 Tablet(s) PO daily 11/08/2017 06/05/2018 Active atorvastatin 20 mg t ablet RxNorm: 927450 1 Tablet(s) PO daily 08/09/2017 03/06/2018 Inactive Namenda 10 mg tablet RxNorm: 689664 1 Tablet(s) PO BID 07/24/2017 10/21/2017 Inactive Insurance denied Namenda XR 28mg Namenda 10 mg tablet RxNorm: 738273 1 Tablet(s) PO BID 07/24/2017 07/23/2017 Inactive Insurance denied Namenda XR 28mg Cerefolin NAC 600 mg -2 mg-6 mg tablet RxNorm: TAKE ONE CAPLET BY MOUTH ON E TIME DAILY 07/11/2017 07/05/2018 Active Aricept 10 mg tablet RxNorm: 238568 1 Tablet(s) PO daily 06/01/2017 05/26/2018 Active Aricept 10 mg tablet RxNorm: 021510 1 Tablet(s) PO daily 06/01/2017 05/31/2017 Inactive Cerefolin NAC 600 mg -2 mg-6 mg tablet RxNorm: TAKE ONE TABLET BY MOUTH ON E TIME DAILY 07/06/2016 06/30/2017 Inactive fluorouracil 5 % top ical cream RxNorm: 472757 1 Application TOP luz ly use daily x 1 week, then stop use, let tissue heal x1wk, if still dry patchy, then restart the medication x 1 week 01/29/2016 02/07/2016 Inactive omeprazole 20 mg cap mino,delayed release RxNorm: 190394 1 Capsule(s) PO BID 01/20/2015 06/18/2015 In active Bactroban 2 % topica l cream RxNorm: 058834 1 Application TOP BID as needed 12/18/2014 03/30/2015 In active Cerefolin NAC 600 mg -2 mg-6 mg tablet RxNorm: 1 Tablet(s) PO daily 07/01/2014 06/25/2015 Inactive [SAVINGS FOR NON-COVERED DRUGS -- BIN:00 5075, PCN: [id number], Group: XXXXX, ID# [id number], Questions: . THIS IS NOT INSURANCE.] Kenalog 40 mg/mL tess pension for injection RxNorm: 7518683 Milliliter(s) Inj 04/01/2014 04/01/2014 In active Namenda XR 7 mg-14 m g-21 mg-28 mg capsule,sprinkle,ER 24hr,dose pack RxNorm: 640150 1 Capsule(s) PO daily 10/15/2013 11/13/2013 Inactive Namenda XR 28 mg cap mino sprinkle,ER 24hr RxNorm: 533626 1 Capsule(s) PO daily 10/15/2013 07/23/2017 In active Bactrim DS 800 mg-16 0 mg tablet RxNorm: 685729 1/2 Tablet(s) PO dale y 10/15/2013 03/30/2015 In active Voltaren 1 % topical gel RxNorm: 481084 4 Gram(s) TOP QID 09/11/2013 01/08/2014 Inactive dispense 5 tubes Bactroban 2 % topica l cream RxNorm: 555761 1 Application TOP BID 07/29/2013 08/04/2013 Inactive ciprofloxacin 500 mg tablet RxNorm: 356990 1 Tablet(s) PO BID 07/29/2013 08/04/2013 Inactive fluorouracil 5 % top ical cream RxNorm: 355475 1 Application TOP luz ly use daily x 1 week, then stop use, let tissue heal x1wk, if still dry patchy, then restart the medication x 1 week 06/25/2013 07/04/2013 Inactive levofloxacin 500 mg tablet RxNorm: 973046 1 Tablet(s) PO daily 03/26/2013 03/30/2013 Inactive Cerefolin NAC 600 mg -2 mg-6 mg tablet RxNorm: 1 Tablet(s) PO daily 11/05/2012 10/30/2013 Inactive Kenalog 40 mg/mL Tess p for Injection RxNorm: 5159311 1 Milliliter(s) Inj 06/29/2012 06/29/2012 In active Exelon 9.5 mg/24 ricki r Transderm 24 hr Patch RxNorm: 072374 Patch 24 hr TD APPLY 1 PATCH DAILY DIRECTED 04/25/2012 08/20/2012 Inactive omeprazole 20 mg cap mino,delayed release RxNorm: 950192 1 Capsule(s) PO daily 04/09/2012 04/03/2013 In active omeprazole 20 mg cap mino,delayed release RxNorm: 339383 Capsule(s) PO TAKE 1 CAPSULE BY MOUTH EVERY DAY 04/09/2012 01/19/2015 Inactive warfarin 4 mg tablet RxNorm: 069409 1 Tablet(s) PO 11/28/2011 11/21/2012 Inactive TAKE 1 TABLET BY MOUTH DAILY Cerefolin NAC 600 mg -2 mg-6 mg tablet RxNorm: 1 Tablet(s) PO daily 11/28/2011 11/04/2012 Inactive warfarin 4 mg tablet RxNorm: 950235 Tablet(s) PO 08/07/2011 11/27/2011 Inactive TAKE 1 TABLET BY MOUTH DAILY Flector 1.3 % Adhesi ve Patch RxNorm: 032517 1 Application TOP BID 07/12/2011 02/06/2012 Inactive levofloxacin 500 mg Tab RxNorm: 205044 1 Tablet(s) PO daily 07/12/2011 07/16/2011 Inactive nystatin 100,000 uni t/mL Oral Susp RxNorm: 682008 3 Milliliter(s) BUCC TID 07/12/2011 07/21/2011 In active lisinopril 20 mg Tab RxNorm: 107348 1 Tablet(s) PO daily 04/12/2011 04/05/2012 Inactive TAKE ONE TABLET BY MOUTH DAILY;Patient requests 90 day supply omeprazole 20 mg cap mino,delayed release RxNorm: 582607 1 Capsule(s) PO daily 04/12/2011 04/05/2012 In active Namenda 10 mg Tab RxNorm: 954948 1 Tablet(s) PO BID 04/12/2011 04/05/2012 Inactive metoprolol succinate ER 50 mg 24 hr Tab RxNorm: 052783 1 Tablet(s) PO daily 04/12/2011 04/05/2012 In active ropinirole 1 mg Tab RxNorm: 066439 1 Tablet(s) PO daily 04/12/2011 04/05/2012 Inactive TAKE 1 TABLET BY MOUTH EVERY NIGHT AT BE DTIME;Patient requests 90 day supply Bactrim DS 800 mg-16 0 mg Tab RxNorm: 894466 1/2 Tablet(s) PO daily 04/12/2011 04/05/2012 Inactive Exelon 9.5 mg/24 ricki r Transderm 24 hr Patch RxNorm: 727924 1 Patch TD daily 04/12/2011 04/05/2012 In active melatonin 3 mg Tab RxNorm: 446855 1 Tablet(s) PO QHS 04/11/2011 No Stop Date Active Fish Oil 900 mg-1,40 0 mg Cap, Delayed Release RxNorm: 1 Capsule(s) PO BID 04/11/2011 10/27/2015 In active Tylenol Arthritis 65 0 mg Tab RxNorm: 9601873 2 Tablet(s) PO QAM 04/11/2011 10/27/2015 Inactive Bactrim DS 800 mg-16 0 mg Tab RxNorm: 437672 1/2 Tablet(s) PO daily 04/11/2011 04/11/2011 Inactive lisinopril 20 mg Tab RxNorm: 395772 Tablet(s) PO 04/07/2011 04/11/2011 Inactive TAKE ONE TABLET BY MOUTH DAILY;Patient requests 90 day supply ropinirole 1 mg Tab RxNorm: 848017 Tablet(s) PO 04/07/2011 04/11/2011 Inactive TAKE 1 TABLET BY MOUTH EVERY NIGHT AT BEDTIME;Patient requests 90 day supply lisinopril 20 mg Tab RxNorm: 469398 1 Tablet(s) PO daily 04/06/2011 04/06/2011 Inactive ropinirole 1 mg Tab RxNorm: 634377 1 Tablet(s) PO daily 04/06/2011 04/06/2011 Inactive Influenza Virus Vacc ine 0.5 mL RxNorm: IM 01/11/2011 01/11/2011 Inactive Osteo Bi-Flex Triple Strength RxNorm: 2 PO daily No S tart Date Active Bactrim DS 800 mg-16 0 mg tablet RxNorm: 438805 1/2 Tablet(s) PO dale y No Start Date Active isosorbide mononitra te ER 30 mg tablet,extended release 24 hr RxNorm: 380524 1 Tablet(s) PO daily No Start Date Active Vitamin B-12 5,000 m cg/mL sublingual drops RxNorm: 8253311 1 Milliliter(s) SL d aily No Start Date Active Tylenol Extra Streng th 500 mg tablet RxNorm: 443456 2 Tablet(s) PO BID No Start Date Active aspirin 81 mg Tab, D elayed Release RxNorm: 624159 1 Tablet(s) PO daily No Start Date Active warfarin 4 mg tablet RxNorm: 381703 1 Tablet(s) PO daily No Start Date Active Centrum Silver Oral RxNorm: Oral No Start Date Active lisinopril 20 mg tablet RxNorm: 204390 1 Tablet(s) PO daily No Start Date Active Fish Oil 300 mg-1,00 0 mg capsule RxNorm: 232591 1 Capsule(s) PO daily No Start Date Active Calcium 500 + D (D3) Oral RxNorm: Oral No Start D ate Active Exelon 13.3 mg/24 ho ur Transderm 24 hr Patch RxNorm: 5620171 TD No Start Date Active metoprolol succinate ER 50 mg tablet,extended release 24 hr RxNorm: 827322 1 Tablet(s) PO daily No Start Date Active Cerefolin NAC 600 mg -2 mg-6 mg tablet RxNorm: 1 Tablet(s) PO daily No Start Date 11/27/2011 Inactive Lipitor 40 mg tablet RxNorm: 221912 1 Tablet(s) PO daily ordered by dr broussard No Start Date 08/08/2017 Inactive lisinopril 20 mg Tab RxNorm: 228359 1 Tablet(s) PO daily No Start Date 04/05/2011 Inactive hydrocodone-acetamin ophen 5 mg-325 mg tablet RxNorm: 4891848 1 Tablet(s) PO BID No Start Date 01/19/2015 Inactive omeprazole 20 mg Cap , Delayed Release RxNorm: 178880 1 Capsule(s) PO daily No Start Date 04/11/2011 Inactive metoprolol succinate ER 50 mg 24 hr Tab RxNorm: 023166 1 Tablet(s) PO daily No Start Date 04/11/2011 Inactive Exelon 9.5 mg/24 ricki r Transderm 24 hr Patch RxNorm: 452636 1 Patch TD daily No Start Date 04/11/2011 Inactive warfarin 4 mg Tab RxNorm: 080137 1 Tablet(s) PO daily No Start Date 08/06/2011 Inactive multivitamin Oral RxNorm: Oral No Start Date 07/26/2016 Inactive melatonin 3 mg Tab RxNorm: 690795 Oral No Start Date 04/10/2011 Inactive ropinirole 1 mg tablet RxNorm: 888385 1 Tablet(s) PO daily No Start Date 01/16/2018 Inactive iron 134 mg (27 mg i iron) Tab RxNorm: 085511 1 Tablet(s) PO daily No Start Date 10/26/2015 Inactive Fish Oil 900 mg-1,40 0 mg Cap, Delayed Release RxNorm: 1 Capsule(s) PO daily No Start Date 04/10/2011 Inactive Bactrim DS 800 mg-16 0 mg Tab RxNorm: 069795 Oral No S tart Date 04/10/2011 Inactive metoprolol tartrate 50 mg Tab RxNorm: 249171 1 Tablet(s) PO daily No Start Date 04/10/2011 Inactive Tylenol Arthritis 65 0 mg Tab RxNorm: 7786451 Oral No Start Date 04/10/2011 Inactive Namenda 10 mg Tab RxNorm: 366118 1 Tablet(s) PO BID No Start Date 04/11/2011 Inactive ropinirole 1 mg Tab RxNorm: 831775 1 Tablet(s) PO daily No Start Date 04/05/2011 Inactive Medication Administered Medication Codes Instruc tions Start Date Status Kenalog 40 mg/mL suspension for injection RxNorm: 7852143 Milliliter 04/01/2014 No longer Active Kenalog 40 mg/mL Susp for Injection RxNorm: 1732950 1Milliliter 06/29/2012 N o longer Active Influenza [...] completed Assessments Condition Codes Effectiv e Dates Slow transit constipation ICD-10: K5 9.01 ICD-9: [...] Visit Reason For Visit Effective Dates Notes blood pressure followup 03/27/2018 hypertension 02/14/2018 hypertension [...] Item Item Code Result Date Comp Metabolic Avk521 NA 143 mEq/L 08/08/2017 Comp Metabolic Amy412 K 5.3 mEq/L 08/08/2017 Comp Metabolic Lrn610 CL 112 mEq/L 08/08/2017 Comp Metabolic Ccz641 CO2 27.0 mEq/L 08/08/2017 Comp Metabolic Ega886 AN ION GAP 9 08/08/2017 Comp Metabolic Odk189 GL UCOSE 88 mg/dL 08/08/2017 Comp Metabolic Hks640 Cr eat 1.1 mg/dL 08/08/2017 Comp Metabolic Ipx871 eG FR 71 ml/min/1.73m2 08/08 Comp Metabolic Oqz354 BUN 26 mg/dL 08/08/2017 Comp Metabolic Uxc444 B/ C Ratio 24.5 Ratio 08/08/2017 Comp Metabolic Mgh559 CA LCIUM 9.0 mg/dL 08/08/2017 Comp Metabolic Hxd259 AL K PHOS 49 U/L 08/08/2017 Comp Metabolic Nxs953 T(SGOT) 32 U/L 08/08/2017 Comp Metabolic Oqq971 AL T(SGPT) 25 U/L 08/08/2017 Comp Metabolic Dam827 BI LI T 0.7 mg/dL 08/08/2017 Comp Metabolic Ytd911 AL BUMIN 4.2 g/dL 08/08/2017 Comp Metabolic Fft115 TP RO 6.0 g/dL 08/08/2017 Comp Metabolic Pcq372 GL OB 1.9 g/dL 08/08/2017 Comp Metabolic Ntd129 A/ G Ratio 2.2 Ratio 08/08/2017 Comp Metabolic Crn677 Os mo 289 mOsmo 08/08/2017 Lipid Ord30 CHOL 110 mg/dL 08/08/2017 Lipid Ord30 HDL 57.0 mg/dl 08/08/2017 Lipid Ord30 TRIG 83 mg/dL 08/08/2017 Lipid Ord30 LDL 36 mg/dL 08/08/2017 Lipid Ord30 C/HDL 1.9 Ratio 08/08/2017 Comp Metabolic Swx198 NA 141 mEq/L 01/28/2016 Comp Metabolic Xln702 K 4.5 mEq/L 01/28/2016 Comp Metabolic Svw701 CL 111 mEq/L 01/28/2016 Comp Metabolic Pod092 CO2 27.0 mEq/L 01/28/2016 Comp Metabolic Evk743 AN ION GAP 8 01/28/2016 Comp Metabolic Kec367 GL UCOSE 88 mg/dL 01/28/2016 Comp Metabolic Tud621 Cr eat 1.1 mg/dL 01/28/2016 Comp Metabolic Cji000 eG FR 69 ml/min/1.73m2 01/27 Comp Metabolic Nmb312 BUN 23 mg/dL 01/28/2016 Comp Metabolic Lnh984 B/ C Ratio 21.3 Ratio 01/28/2016 Comp Metabolic Als760 CA LCIUM 9.0 mg/dL 01/28/2016 Comp Metabolic Jen765 AL K PHOS 48 U/L 01/28/2016 Comp Metabolic Bck793 T(SGOT) 28 U/L 01/28/2016 Comp Metabolic Ncd436 AL T(SGPT) 20 U/L 01/28/2016 Comp Metabolic Hot563 BI LI T 0.8 mg/dL 01/28/2016 Comp Metabolic Vxd502 AL BUMIN 4.0 g/dL 01/28/2016 Comp Metabolic Cys609 TP RO 6.0 g/dL 01/28/2016 Comp Metabolic Heo547 GL OB 2.0 g/dL 01/28/2016 Comp Metabolic Pwl095 A/ G Ratio 2.0 Ratio 01/28/2016 Comp Metabolic Inb170 Os mo 284 mOsmo 01/28/2016 Lipid Ord30 [...] 12.7 g/dl 01/28/2016 Cbc With Differential Ord2 Neut% 67.5 % 01/28/2016 Cbc With Differential Ord2 HCT 37.9 % 01/28/2016 Cbc With Differential Ord2 MCV 103.0 fl 01/28/2016 Cbc With Differential Ord2 Lymph% 21.0 % 01/28/2016 Cbc With Differential Ord2 MCH 34.5 pg 01/28/2016 Cbc With Differential Ord2 Trigg% 10.0 % 01/28/2016 Cbc With Differential Ord2 [...] 1.17 K/ul 01/28/2016 Cbc With Differential Ord2 Trigg ABS# 0.6 K/ul 01/28/2016 Cbc With Differential Ord2 Eos ABS# 0.1 K/ul 01/28/2016 Cbc With Differential Ord2 Baso ABS# 0.0 K/ul 01/28/2016 Total Psa Ord10 PSA 2.96 ng/mL 01/28/2016 Hepatic Hqx967 ALBUMIN 4.0 g/dL 08/07/2015 Hepatic Xxq566 TPRO 6.0 g/dL 08/07/2015 Hepatic Hqp528 GLOB 2.0 g/dL 08/07/2015 Hepatic Ees179 A/G Ratio 2.0 Ratio 08/07/2015 Hepatic Bxr711 ALK PHOS 47 U/L 08/07/2015 Hepatic Pic072 ALT(SGPT) 20 U/L 08/07/2015 Hepatic Xoe587 AST(SGOT) 26 U/L 08/07/2015 Hepatic Byz795 BILI T 0.6 mg/dL 08/07/2015 Hepatic Ybv035 BILI D 0.2 mg/dL 08/07/2015 Hepatic Hpe590 BILI I 0.4 mg/dL 08/07/2015 Pt Guq6799 PT 25.8 seconds 08/07/2015 Pt Xdn8112 INR 2.5 08/07/2015 Pt Zdw8704 Low Intensity - 1.5-2.0 08/07/2015 Pt Inz3691 Mod intensity - 2.0-3.0 08/07/2015 Pt Nbb9162 Hi intensity - 3.0-4.0 08/07/2015 Lipid Ord30 CHOL 102 mg/dL 08/07/2015 Lipid Ord30 HDL 50.0 mg/dl 08/07/2015 Lipid Ord30 TRIG 73 mg/dL 08/07/2015 Lipid Ord30 LDL 37 mg/dL 08/07/2015 Lipid Ord30 C/HDL 2.0 Ratio 08/07/2015 Pt Vlg5782 PT 24.3 seconds 12/22/2014 Pt Dgz3438 INR 2.3 12/22/2014 Pt Buw4746 Low Intensity - 1.5-2.0 12/22/2014 Pt Dnj7358 Mod intensity - 2.0-3.0 12/22/2014 Pt Awu5023 Hi intensity - 3.0-4.0 12/22/2014 URINALYSIS NONAUTO W/O SCOPE 18157 Specific [place] 1.030 DateTime(Free Text in Aprima) URINALYSIS NONAUTO W/O SCOPE 74844 PH 6.5 DateTime(Free Ryan t in ) URINALYSIS NONAUTO W/O SCOPE 25254 GLUCOSE neg DateTime(Free Ryan t in Aprima) URINALYSIS NONAUTO W/O SCOPE 43088 Protein trace DateTime(Free T ext in ) URINALYSIS NONAUTO W/O SCOPE 43545 Blood 3+ DateTime(Free Text in Aprima) URINALYSIS NONAUTO W/O SCOPE 27718 Bilirubin neg DateTime(Free Ryan t in Aprima) URINALYSIS NONAUTO W/O SCOPE 33939 Ketones neg DateTime(Free Ryan t in Aprima) URINALYSIS NONAUTO W/O SCOPE 75600 Urobilinogen neg DateTime(Free Text in Aprima) URINALYSIS NONAUTO W/O SCOPE 64264 Nitrite neg DateTime(Free Ryan t in Aprima) URINALYSIS NONAUTO W/O SCOPE 06271 Leukocytes neg DateTime(Free Text in Aprima) Review of Systems System Result Effective Dates Constitutional No recent illness 03/27/2018 Constitutional No [...] accomodation 04/01/2014 None Full Exam - General 1995 Ears/Nose/Throat otoscopic exam Overall: external auditory canals clear 04/01/2014 None Full Exam - General 1994 Ears/Nose/Throat otoscopic exam Overall: tympanic membranes clear 04/01/2014 None Full Exam - General 1995 Ears/Nose/Throat lips/teeth/gingiva Overall: benign lips 04/01/2014 None [...] inspection of skin Dermatitis: erythema 08/22/2013 right hinduism, no open are as, scabbed lesion healed [...] palp - head/face Location: on the right hinduism 08/08/2013 --Improved Full Exam - Dermatology Integument [...] palp - head/face Location: on the right hinduism 07/29/2013 None Full Exam - Dermatology Integument [...] inspection of skin Dermatitis: erythema 06/25/2013 left hinduism, with irritat ed center of lesion Full [...] General 1995 Ears/Nose/Throat lips/teeth/gingiva Overall: benign lips 03/26/2013 None Full Exam - General 1995 Ears/Nose/Throat lips/teeth/gingiva Overall: no masses 03/26/2013 None Full Exam - General 1995 [...] inspection of skin Dermatitis: erythema 03/26/2013 left hinduism, with irritat ed center of lesion Full [...] nourished 08/21/2012 None Full Exam - General 1995 Eyes pupils and irises Overall: pupils equal, [...] clear 04/12/2011 None Full Exam - General 1995 Ears/Nose/Throat lips/teeth/gingiva Overall: benign lips 04/12/2011 None [...] VACC PRSV FREE I NC ANTIG CPT-4: 12222 01/25/2017 PPPS, SUBSEQ VISIT CPT- 4: G0439 08/05/2016 ADMIN PNEUMOCOCCAL V ACCINE SNOMED CT: 04935996 CPT-4: G0009 04/26/2016 Pneumococcal Polysac charide Vaccine, 23-Valent, Ad Formatting Model/CDA Sections, Assigned to/Raquel Shelley CPT-4: 84082Vjqqdpi 04/26/2016 ADMIN INFLUENZA VIRU S VAC CPT-4: G0008 01/27/2016 FLU VACC 4 JULISA 3 YRS PLUS IM Formatting Model/CDA Sections, Assigned to/Raquel Shelley SNOMED CT: 95701307 CPT-4: 56172Lbamzoe 01/27/2016 ADMIN INFLUENZA VIRU S VAC Formatting Model/CDA Sections, Assigned to CPT-4: P6291Jfwegvo 01/20/2015 FLU VACC 4 JULISA 3 YRS PLUS IM SNOMED CT: 05891615 CPT-4: 42026 01/20/2015 DRAIN/INJECT JOINT/B URSA CPT-4: 33568 04/01/2014 TRIAMCINOLONE ACET I [place] NOS CPT-4: J3301 04/01/2014 URINALYSIS NONAUTO W /O SCOPE CPT-4: 69501 04/01/2014 ADMIN INFLUENZA VIRU S VAC Assigned to/Raquel Shelley CPT-4: Z1903Qcnbzvs 01/13/2014 FLU VAC NO PRSV 4 VA L 3 YRS+ Assigned to/Raquel Shelley CPT-4: 90131Reqwjkk 01/13/2014 PRESCRIP TRANSMIT A ERX SY CPT-4: G8553 03/26/2013 ADMIN INFLUENZA VIRU S VAC CPT-4: G0008 01/14/2013 FLULAVAL VACC, 3 YRS & >, IM CPT-4: Q2036 01/14/2013 DESTRUCT PREMALG LESION CPT-4: 91664 12/25/2012 PRESCRIP TRANSMIT A ERX SY CPT-4: G8553 08/21/2012 DRAIN/INJECT JOINT/B URSA CPT-4: 82708 06/28/2012 TRIAMCINOLONE ACET I [place] NOS CPT-4: J3301 06/28/2012 ADMIN INFLUENZA VIRU S VAC CPT-4: G0008 02/14/2012 FLULAVAL VACC, 3 YRS & >, IM CPT-4: Q2036 02/14/2012 URINALYSIS NONAUTO W /O SCOPE CPT-4: 33280 07/12/2011 PRESCRIP TRANSMIT A ERX SY CPT-4: G8553 07/12/2011 ADMIN INFLUENZA VIRU S VAC CPT-4: G0008 01/11/2011 FLULAVAL VACC, 3 YRS & >, IM CPT-4: Q2036 01/11/2011 Vital Signs Date Vital 03/27/2018 Blood Pressure 1: 122/70 Code: 8480-6 BMI: 21.1 Code: 33144-2 Heart Rate 1: 76 bpm Height: 5'7" SpO2: 96% Weight: 135 lbs 02/14/2018 Blood Pressure 1: 102/58 Code: 8480-6 BMI: 21.5 Code: 20767-7 Heart Rate 1: 78 bpm Height: 5'7" SpO2: 98% Weight: 137 lbs 11/08/2017 Blood Pressure 1: 132/68 Code: 8480-6 BMI: 21.9 Code: 88019-7 Heart Rate 1: 66 bpm Height: 5'7" SpO2: 98% Weight: 140 lbs 08/11/2017 Blood Pressure 1: 118/68 Code: 8480-6 BMI: 22.2 Code: 82653-4 Heart Rate 1: 63 bpm Height: 5'7" SpO2: 98% Waist Measure (cm): 61 cm Weight: 142 lbs 08/09/2017 Blood Pressure 1: 11868 Code: 8480-6 BMI: 22.4 Code: 33534-7 Heart Rate 1: 60 bpm Height: 5'7" SpO2: 98% Weight: 143 lbs 04/11/2017 Blood Pressure 1: 122/68 Code: 8480-6 BMI: 23.0 Code: 55657-5 Heart Rate 1: 65 bpm Height: 5'7" SpO2: 98% Weight: 147 lbs 01/25/2017 Blood Pressure 1: 136/58 Code: 8480-6 BMI: 23.0 Code: 64061-8 Heart Rate 1: 63 bpm Height: 5'7" SpO2: 96% Weight: 147 lbs 12/21/2016 Blood Pressure 1: 112/52 Code: 8480-6 BMI: 23.0 Code: 29661-9 Heart Rate 1: 73 bpm Height: 5'7" SpO2: 97% Weight: 147 lbs 12/01/2016 Blood Pressure 1: 128/76 Code: 8480-6 BMI: 22.7 Code: 07566-0 Heart Rate 1: 67 bpm Height: 5'7" SpO2: 95% Weight: 145 lbs 10/25/2016 Blood Pressure 1: 128/70 Code: 8480-6 BMI: 23.5 Code: 21399-9 Heart Rate 1: 62 bpm Height: 5'7" SpO2: 96% Weight: 150 lbs 08/05/2016 Blood Pressure 1: 110/58 Code: 8480-6 BMI: 23.3 Code: 81317-3 Heart Rate 1: 65 bpm Height: 5'7" SpO2: 95% Waist Measure (cm): 102 cm Weight: 149 lbs 07/26/2016 Blood Pressure 1: 112/64 Code: 8480-6 BMI: 23.3 Code: 82738-6 Heart Rate 1: 62 bpm Height: 5'7" SpO2: 95% Weight: 149 lbs 04/26/2016 Blood Pressure 1: 124/68 Code: 8480-6 BMI: 23.8 Code: 82465-9 Heart Rate 1: 64 bpm Height: 5'7" SpO2: 98% Weight: 152 lbs 01/27/2016 Blood Pressure 1: 118/70 Code: 8480-6 BMI: 24.0 Code: 82951-4 Heart Rate 1: 64 bpm Height: 5'7" SpO2: 97% Weight: 153 lbs 10/27/2015 Blood Pressure 1: 114/60 Code: 8480-6 BMI: 23.7 Code: 79906-7 Heart Rate 1: 61 bpm Height: 5'7" SpO2: 97% Weight: 151 lbs 8 oz 06/30/2015 Blood Pressure 1: 102/60 Code: 8480-6 BMI: 23.9 Code: 64169-5 Heart Rate 1: 70 bpm Height: 5'7" SpO2: 97% Weight: 152 lbs 8 oz 03/31/2015 Blood Pressure 1: 122/64 Code: 8480-6 BMI: 23.2 Code: 06576-7 Heart Rate 1: 64 bpm Height: 5'7" SpO2: 97% Weight: 148 lbs 03/17/2015 Blood Pressure 1: 142/76 Code: 8480-6 BMI: 23.5 Code: 46864-6 Heart Rate 1: 64 bpm Height: 5'7" SpO2: 98% Weight: 150 lbs 01/20/2015 Blood Pressure 1: 128/64 Code: 8480-6 BMI: 22.9 Code: 93365-0 Heart Rate 1: 72 bpm Height: 5'7" SpO2: 96% Weight: 146 lbs 12/15/2014 Blood Pressure 1: 110/60 Code: 8480-6 BMI: 21.9 Code: 38552-3 Heart Rate 1: 88 bpm Height: 5'7" SpO2: 96% Weight: 140 lbs 09/30/2014 Blood Pressure 1: 146/70 Code: 8480-6 BMI: 23.5 Code: 12906-5 Heart Rate 1: 53 bpm Height: 5'7" SpO2: 94% Weight: 150 lbs 07/01/2014 Blood Pressure 1: 140/62 Code: 8480-6 BMI: 23.6 Code: 76534-1 Heart Rate 1: 70 bpm Height: 5'7" Weight: 151 lbs 04/01/2014 Blood Pressure 1: 118/78 Code: 8480-6 BMI: 24.5 Code: 86758-5 Heart Rate 1: 56 bpm Height: 5'7" Weight: 156 lbs 8 oz 01/13/2014 Blood Pressure 1: 138/64 Code: 8480-6 BMI: 24.4 Code: 14914-4 Heart Rate 1: 54 bpm Height: 5'7" SpO2: 96% Weight: 156 lbs 10/15/2013 Blood Pressure 1: 124/74 Code: 8480-6 BMI: 24.6 Code: 52122-2 Heart Rate 1: 60 bpm Height: 5'7" Weight: 157 lbs 09/11/2013 Blood Pressure 1: 120/62 Code: 8480-6 BMI: 23.6 Code: 54408-4 Heart Rate 1: 64 bpm Height: 5'7" Weight: 151 lbs 08/22/2013 Blood Pressure 1: 120/64 Code: 8480-6 BMI: 24.4 Code: 83349-1 Heart Rate 1: 64 bpm Height: 5'7" Weight: 156 lbs 08/08/2013 Blood Pressure 1: 102/62 Code: 8480-6 BMI: 24.7 Code: 79874-0 Heart Rate 1: 60 bpm Height: 5'7" Weight: 158 lbs 07/29/2013 Blood Pressure 1: 114/74 Code: 8480-6 Heart Rate 1: 60 bpm 06/25/2013 Blood Pressure 1: 128/70 Code: 8480-6 BMI: 24.1 Code: 68045-8 Heart Rate 1: 56 bpm Height: 5'7" SpO2: 98% Weight: 154 lbs 03/26/2013 Blood Pressure 1: 132/78 Code: 8480-6 BMI: 24.6 Code: 77024-2 Heart Rate 1: 60 bpm Height: 5'7" SpO2: 98% Temperature: 36.5 (C ) / 97.7 (F) Weight: 157 lbs 12/25/2012 Blood Pressure 1: 98/60 Code: 8480-6 Heart Rate 1: 64 bpm Weight: 160 lbs 11/20/2012 Blood Pressure 1: 136/80 Code: 8480-6 BMI: 24.6 Code: 49618-9 Heart Rate 1: 68 bpm Height: 5'7" Weight: 157 lbs 08/21/2012 Blood Pressure 1: 112/56 Code: 8480-6 BMI: 23.8 Code: 30418-9 Heart Rate 1: 60 bpm Height: 5'7" Weight: 152 lbs 06/28/2012 Blood Pressure 1: 128/82 Code: 8480-6 Heart Rate 1: 80 bpm Respiratory Rate: 20 bpm Weight: 149 lbs 05/21/2012 Blood Pressure 1: 116/64 Code: 8480-6 BMI: 23.6 Code: 30995-3 Heart Rate 1: 72 bpm Height: 5'7" Weight: 151 lbs 04/26/2012 Blood Pressure 1: 140/80 Code: 8480-6 Heart Rate 1: 76 bpm Respiratory Rate: 16 bpm Temperature: 36.7 (C) / 98.0 (F) Weight: 02/14/2012 Blood Pressure 1: 116/58 Code: 8480-6 BMI: 23.6 Code: 96395-4 Heart Rate 1: 64 bpm Height: 5'7" Respiratory Rate: 18 bpm Weight: 151 lbs 10/11/2011 Blood Pressure 1: 100/54 Code: 8480-6 Heart Rate 1: 60 bpm Respiratory Rate: 16 bpm Weight: 143 lbs 07/12/2011 Blood Pressure 1: 130/62 Code: 8480-6 BMI: 22.9 Code: 26443-7 Heart Rate 1: 62 bpm Height: 5'7" Respiratory Rate: 16 bpm Weight: 146 lbs 05/11/2011 Blood Pressure 1: 120/64 Code: 8480-6 BMI: 23.6 Code: 78605-4 Heart Rate 1: 72 bpm Height: 5'7" Respiratory Rate: 16 bpm Weight: 151 lbs 04/12/2011 Blood Pressure 1: 120/62 Code: 8480-6 BMI: 24.6 Code: 83753-7 Heart Rate 1: 60 bpm Height: 5'7" Respiratory Rate: 16 bpm Weight: 157 lbs 01/11/2011 Blood Pressure 1: 126/68 Code: 8480-6 BMI: 24.7 Code: 79929-1 Heart Rate 1: 50 bpm Height: 5'7" Respiratory Rate: 12 bpm Weight: 158 lbs Functional Status No Functional Status data History of Present Illness Symptom Name Status Resu lt Effective Date Notes blood pressure followup Quality intermittent 03/27/2018 None [...] day 08/11/2017 None Annual Medicare Wellness Exam Handjennifer ng Stress usually fredis effectively 08/11/2017 None [...] lesion Location on the forehead 07/29/2013 right hinduism skin lesion Onset and Resolution ongoing 07/29/2013 [...] down to 130lbs but since moving to [place] has gained some weight back hypertension Quality [...] remembering names 01/11/2011 None 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 P ATIENT, LEVEL III Diagnosis: Essential (primary) hypertension[ICD10: I10] Diagnosis: Slow transit constipation[ICD10: K59.01] Nay Martinez MD, C CPT-4: 62766 03/27/2018 ([id number]) 35742 EST. P ATIENT, LEVEL III Diagnosis: Slow transit constipation[ICD10: K59.01] Diagnosis: Other hypotension[ICD10: I95.89] Nay Martinez MD, [facility] CPT-4: 29010 02/14/2018 ([id number]) 28884 EST. P ATIENT, LEVEL IV Diagnosis: Essential (primary) hypertension[ICD10: I10] Diagnosis: Alzheimer's disease with early onset[ICD10: G30.0] Diagnosis: Actinic keratosis[ICD10: L57.0] Nay Martinez MD, [facility] CPT-4: 33664 11/08/2017 ([id number]) 72099 EST. P ATIENT, LEVEL IV Diagnosis: Essential (primary) hypertension[ICD10: I10] Diagnosis: Mixed hyperlipidemia[ICD10: E78.2] Diagnosis: Alzheimer's disease with early onset[ICD10: G30.0] Nay Martinez MD, C CPT-4: 29098 08/09/2017 ([id number]) 44969 EST. P ATIENT, LEVEL IV Diagnosis: Essential (primary) hypertension[ICD10: I10] Diagnosis: Alzheimer's disease with early onset[ICD10: G30.0] Diagnosis: Mixed hyperlipidemia[ICD10: E78.2] Diagnosis: Pain in left knee[ICD10: M25.562] Nay Martinez MD, [facility] CPT-4: 68161 04/11/2017 ([id number]) 02562 EST. P ATIENT, LEVEL III Diagnosis: Essential (primary) hypertension[ICD10: I10] Diagnosis: Encounter for immunization[ICD10: Z23] Diagnosis: Alzheimer's disease with early onset[ICD10: G30.0] Nay Martinez MD, [facility] CPT-4: 33661 01/25/2017 ([id number]) 43342 EST. P ATIENT, LEVEL III Diagnosis: Otalgia, left ear[ICD10: H92.02] Nay Martinez MD, [facility] CPT-4: 28341 12/21/2016 ([id number]) 03186 EST. P ATIENT, LEVEL IV Diagnosis: Essential (primary) hypertension[ICD10: I10] Diagnosis: Alzheimer's disease with early onset[ICD10: G30.0] Diagnosis: Abnormal weight loss[ICD10: R63.4] Nay Martinez MD, [facility] CPT- 4: 85129 12/01/2016 ([id number]) 23955 EST. P ATIENT, LEVEL IV Diagnosis: Essential (primary) hypertension[ICD10: I10] Diagnosis: Mixed hyperlipidemia[ICD10: E78.2] Nay Martinez MD, [facility] CPT- 4: 85086 10/25/2016 98506 EST. PATIENT, LEVEL IV Diagnosis: Essential (primary) hypertension[ICD10: I10] Diagnosis: Alzheimer's disease with early onset[ICD10: G30.0] Diagnosis: Pain in left knee[ICD10: M25.562] Diagnosis: Cyst of kidney, acquired[ICD10: N28.1] Nay Martinez MD, [facility] CPT-4: 52916 07/26/2016 ([id number]) 31495 EST. P ATIENT, LEVEL IV Diagnosis: Essential (primary) hypertension[ICD10: I10] Diagnosis: Alzheimer's disease with early onset[ICD10: G30.0] Rosa Martinez MD, [facility] CPT-4: 98753 04/26/2016 ([id number]) 13974 EST. P ATIENT, LEVEL IV Diagnosis: Essential (primary) hypertension[ICD10: I10] Diagnosis: Alzheimer's disease with early onset[ICD10: G30.0] Diagnosis: VACCIN FOR INFLUENZA[ICD10: Z23] Nay Martinez MD, [facility] CPT-4: 70606 01/27/2016 ([id number]) 57990 EST. P ATIENT, LEVEL IV Diagnosis: Essential (primary) hypertension[ICD10: I10] Diagnosis: Alzheimer's disease with early onset[ICD10: G30.0] Nay Martinez MD, C CPT-4: 37609 10/27/2015 ([id number]) 97090 EST. P ATIENT, LEVEL IV Diagnosis: Essential (primary) hypertension[ICD10: I10] Diagnosis: Alzheimer's disease with early onset[ICD10: G30.0] Nay Martinez MD, [facility] CPT-4: 09899 06/30/2015 ([id number]) 04357 EST. P ATIENT, LEVEL IV Diagnosis: Essential (primary) hypertension[ICD10: I10] Diagnosis: Alzheimer's disease with early onset[ICD10: G30.0] Nay Martinez MD, [facility] CPT-4: 62820 03/31/2015 65301 EST. PATIENT, LEVEL III Diagnosis: Low back pain[ICD10: M54.5] Fern Martinez MD, [facility] CPT-4: 25065 03/17/2015 ([id number]) 95214 EST. P ATIENT, LEVEL IV Diagnosis: ESSENTIAL HYPERTENSION[ICD9: 401.9] Diagnosis: Encounter for long-term (current) use of anticoagulants[ICD9: V58.61] Diagnosis: Skin change[ICD9: 782.9] Diagnosis: Change in mole[ICD9: 216.9] Diagnosis: VACCIN FOR INFLUENZA[ICD9: V04.81] Nay Martinez MD, [facility] CPT- 4: 34369 01/20/2015 ([id number]) 97110 EST. P ATIENT, LEVEL IV Diagnosis: ESSENTIAL HYPERTENSION[ICD9: 401.9] Diagnosis: OSTEOARTHROSIS-MULT SITE[ICD9: 715.80] Diagnosis: Knee pain[ICD9: 719.46] Diagnosis: ENCNTR LONG-ANTICOAG USE[ICD9: V58.61] [facility] CPT-4: 11259 12/15/2014 ([id number]) 41483 EST. P ATIENT, LEVEL IV Diagnosis: ESSENTIAL HYPERTENSION[ICD9: 401.9] Diagnosis: OSTEOARTHROSIS-MULT SITE[ICD9: 715.80] Diagnosis: Knee pain[ICD9: 719.46] [facility] CPT-4: 34119 09/30/2014 ([id number]) 50063 EST. P ATIENT, LEVEL IV Diagnosis: Skin cancer[ICD9: 173.90] Diagnosis: ESSENTIAL HYPERTENSION[ICD9: 401.9] Diagnosis: ALZHEIMER'S DISEASE[ICD9: 331.0] Diagnosis: Knee pain[ICD9: 719.46] Nay Martinez MD, [facility] CPT-4: 44262 07/01/2014 ([id number]) 64575 EST. P ATIENT, LEVEL IV Diagnosis: ESSENTIAL HYPERTENSION[ICD9: 401.9] Diagnosis: Dysuria[ICD9: 788.1] Diagnosis: Knee pain, bilateral[ICD9: 719.46] Diagnosis: Osteoarthritis[ICD9: 715.90] Diagnosis: Dementia[ICD9: 294.8] Nay Martinez MD, [facility] CPT-4: 35391 04/01/2014 ([id number]) 75898 EST. P ATIENT, LEVEL IV Diagnosis: ESSENTIAL HYPERTENSION[ICD9: 401.9] Diagnosis: VACCIN FOR INFLUENZA[ICD10: Z23] Diagnosis: HYPERLIPIDEMIA[ICD9: 272.4] Diagnosis: ALZHEIMER'S DISEASE[ICD9: 331.0] [facility] CPT-4: 22560 01/13/2014 ([id number]) 47849 EST. P ATIENT, LEVEL IV Diagnosis: Dementia[ICD9: 294.8] Diagnosis: Alzheimer's dementia[ICD9: 331.0] Diagnosis: OSTEOARTHROSIS-MULT SITE[ICD9: 715.80] Diagnosis: ESSENTIAL HYPERTENSION[ICD9: 401.9] [facility] CPT- 4: 18835 10/15/2013 ([id number]) 39529 EST. P ATIENT, LEVEL III Diagnosis: Knee pain, acute[ICD9: 719.46] Diagnosis: Osteoarthritis[ICD9: 715.90] Diagnosis: Gait instability[ICD9: 781.2] Nay Martinez MD, [facility] CPT-4: 12862 09/11/2013 ([id number]) 07561 EST. P ATIENT, LEVEL III Diagnosis: CELLULITIS OF FACE[ICD9: 682.0] Diagnosis: Esophageal reflux[ICD9: 530.81] Rosa Martinez MD, [facility] CPT- 4: 87545 08/22/2013 55614 EST. PATIENT, LEVEL II Diagnosis: CELLULITIS OF FACE[ICD9: 682.0] Nay Martinez MD, [facility] CPT-4: 53162 08/08/2013 ([id number]) 73458 EST. P ATIENT, LEVEL III Diagnosis: Cellulitis of hinduism[ICD9: 682.0] Nay Martinez MD, [facility] CPT-4: 53850 07/29/2013 ([id number]) 30025 EST. P ATIENT, LEVEL IV Diagnosis: ESSENTIAL HYPERTENSION[SNOMED: 65844810] Diagnosis: ALZHEIMER'S DISEASE[ICD9: 331.0] Diagnosis: INTEGUMENT TISS SYMP NEC[ICD9: 782.9] Diagnosis: JOINT PAIN-L/LEG[ICD9: 719.46] Nay Martinez MD, [facility] CPT-4: 73505 06/25/2013 ([id number]) 41074 EST. P ATIENT, LEVEL IV Diagnosis: ESSENTIAL HYPERTENSION[SNOMED: 99075379] Diagnosis: ACTINIC KERATOSIS[ICD9: 702.0] Diagnosis: Skin cancer[ICD9: 173.90] Diagnosis: COUGH[ICD9: 786.2] Diagnosis: ACUTE BRONCHITIS[ICD9: 466.0] Nay Martinez MD, [facility] CPT-4: 51993 03/26/2013 22080 EST. PATIENT, LEVEL IV Diagnosis: ESSENTIAL HYPERTENSION[SNOMED: 72241925] Diagnosis: ALZHEIMER'S DISEASE[ICD9: 331.0] Diagnosis: JOINT PAIN-L/LEG[ICD9: 719.46] Diagnosis: MUSCSKEL SYMPT LIMB NEC[ICD9: 729.89] Nay Martinez MD, [facility] CPT-4: 23274 11/20/2012 ([id number]) 54930 EST. P ATIENT, LEVEL IV Diagnosis: ESSENTIAL HYPERTENSION[SNOMED: 60548790] Diagnosis: ALZHEIMER'S DISEASE[ICD9: 331.0] Diagnosis: ENCNTR LONG-ANTICOAG USE[ICD9: V58.61] Diagnosis: Skin change[ICD9: 782.9] Nay Martinez MD, [facility] CPT-4: 41364 08/21/2012 ([id number]) 27551 EST. P ATIENT, LEVEL III Diagnosis: SUBDURAL HEMORRHAGE[ICD9: 432.1] Nay Martinez MD, [facility] CPT-4: 96266 06/28/2012 ([id number]) 01417 EST. P ATIENT, LEVEL IV Diagnosis: ESSENTIAL HYPERTENSION[SNOMED: 86409531] Diagnosis: Subdural hematoma[ICD9: 432.1] Diagnosis: Encounter for long-term (current) use of anticoagulants[ICD9: V58.61] Nay Martinez MD, [facility] CPT-4: 86121 05/21/2012 ([id number]) Patient adm itted to the hospital from clinic (NO CHARGE) Diagnosis: Lower extremity weakness[ICD9: 729.89] Diagnosis: FALL AGAINST OBJECT[ICD9: E888.1] Diagnosis: Gait instability[ICD9: 781.2] Nay Martinez MD, [facility] CPT-4: 01139R 04/26/2012 ([id number]) 41204 EST. P ATIENT, LEVEL IV Diagnosis: ESSENTIAL HYPERTENSION[SNOMED: 36918352] Diagnosis: ALZHEIMER'S DISEASE[ICD9: 331.0] Diagnosis: HYPERLIPIDEMIA[ICD9: 272.4] [facility] CPT-4: 40175 02/14/2012 ([id number]) 65696 EST. P ATIENT, LEVEL IV Diagnosis: ALZHEIMER'S DISEASE[ICD9: 331.0] Diagnosis: Abnormal loss of weight[ICD9: 783.21] Diagnosis: Knee pain, bilateral[ICD9: 719.46] Diagnosis: ESSENTIAL HYPERTENSION[SNOMED: 66887019] Nay Martinez MD, C CPT-4: 19639 10/11/2011 ([id number]) 14295 EST. P ATIENT, LEVEL IV Diagnosis: ESSENTIAL HYPERTENSION[SNOMED: 06991652] Diagnosis: JOINT PAIN-L/LEG[ICD9: 719.46] Diagnosis: Thrush[ICD9: 112.0] Diagnosis: Abdominal pain[ICD9: 789.00] Nay Martinez MD, [facility] CPT-4: 62798 07/12/2011 ([id number]) 77443 EST. P ATIENT, LEVEL III Diagnosis: Knee pain[ICD9: 719.46] Diagnosis: OSTEOARTHROSIS-MULT SITE[ICD9: 715.80] Nay Martinez MD, [facility] CPT-4: 02314 05/11/2011 ([id number]) 75013 EST. P ATIENT, LEVEL IV Diagnosis: Alzheimer's dementia[ICD9: 331.0] Diagnosis: ESSENTIAL HYPERTENSION[SNOMED: 75473441] Nay Martinez MD, C CPT-4: 67360 04/12/2011 95074 EST. PATIENT, LEVEL IV Diagnosis: ESSENTIAL HYPERTENSION[SNOMED: 11710947] Diagnosis: HYPERLIPIDEMIA[ICD9: 272.4] Diagnosis: VACCIN FOR INFLUENZA[ICD9: V04.81] Diagnosis: Dementia[ICD9: 294.8] Nay Martinez MD, [facility] CPT-4: 10652 01/11/2011 Plan of Care Planned Activity Notes C odes Status Date Visit Plan: Constipation - not opti raad [...] in blood pressure readings at home. 03/27/2018 Patient Education: Patient Medication Summary Completed 03/27/2018 Appointment: Nay Martinez [facility]el: [facility] ([facility] min) Moderate 03/07/2018 Appointment: Nay Martinez WPtel: [address] [place], [place] [address] (15 min) Moderate 02/21/2018 Visit Plan: Constipation [...] morning. 02/14/2018 Appointment: [phone] [facility] (15 min) Moderate 02/14/2018 Patient Education: [...] medications. 11/08/2017 Appointment: [facility] [phone] [facility] (15 min) Moderate 11/08/2017 Patient Education: [...] paperwork for health care surrogate. 08/11/2017 [facility]ment[facility]ilar[phone] [facility] - Annual Wellness Visit 08/11/2017 Patient Education: Patient Medication Summary Completed 08/11/2017 Visit Plan: Hyperlipidemia - lashanu hendrix well controlled with chol/hdl ratio of [...] intake. 08/09/2017 Appointment: Nay [facility] [phone] [facility] (15 min) Moderate 08/09/2017 Patient Education: [...] medications. 04/11/2017 Appointment: Nay Martinez WPtel: [phone] [facility] (15 min) Moderate 04/11/2017 Patient Education: [...] memory loss. 01/25/2017 Appointment: Nay Martinez WPtel: [phone] [facility] (15 min) Moderate 01/25/2017 Patient Education: Patient Medication Summary Completed 01/25/2017 Appointment: Nay Martinez WPtel: [facility]0 [facility] (15 min) Moderate 01/24/2017 Visit Plan: Dried bloody debris in left ear - removed with alligator forceps, ear currette - pt to use mineral oil in the ear. 12/21/2016 Appointment: Nay Martinez WPtel: [phone] [facility] (15 min) Moderate 12/21/2016 Patient Education: [...] intake. 12/01/2016 Appointment: Nay Martinez WPtel: [phone] [facility] (15 min) Moderate 12/01/2016 Patient Education: [...] medications. 10/25/2016 Appointment: [phone] [facility] (15 min) Moderate 10/25/2016 Patient Education: [...] home. 08/05/2016 Appointment: Rosa [facility]ilar [phone] [facility] - Annual Wellness Visit 08/05/2016 Patient [...] for tomorrow. 07/26/2016 Appointment: Nay Martinez WPtel: [phone] [facility] [place] (15 min) Moderate 07/26/2016 Patient [...] treatment. 04/26/2016 Appointment: Rosa [facility]ilar [phone] [place] (15 min) Moderate 04/26/2016 [...] treatment. 01/27/2016 Appointment: Nay Martinez WPtel: [phone] [facility] [place] (15 min) Moderate 01/27/2016 Patient [...] of treatment. 10/27/2015 Appointment: [facility]ay [phone] [facility] (15 min) Moderate 10/27/2015 Patient Education: Patient [...] of treatment. 06/30/2015 Appointment: Nay Martinez WPtel: [address] [facility] [place] (15 min) Moderate 06/30/2015 Appointment: Nay Martinez [facility]Ptel: [phone] [facility] [place] (15 min) Moderate 06/30/2015 Patient [...] treatment. 03/31/2015 Appointment: Nay Martinez [facility]Ptel[facility] [phone] [facility] [place] (15 min) Moderate 03/31/2015 Patient [...] surgically removed. 01/20/2015 Appointment: Nay Martinez [facility]Ptel[phone] [facility] [place] (15 min) Moderate 01/20/2015 Patient Education: Patient Medication Summary Completed 01/20/2015 Patient Education: Hypertension Completed 01/20/2015 Care Plan: Referral Order SNOMED-CT : [id number] Ordered 01/20/2015 Appointment: Nay Martinez [facility]Ptel[facility] [phone] [facility] [place] (15 min) Moderate 12/18/2014 Visit [...] 3.5. 12/15/2014 Appointment: Nay Martinez WPtel: [phone] [facility] (15 min) Moderate 12/15/2014 Patient Education: [...] to have his knee operated on at [facility], I have placed a phone call to Dr. Ballesteros - waiting on a call back 09/30/2014 Appointment: Nay Martinez WPtel: [address] [facility] Follow up 09/30/2014 Patient Education: Patient [...] knee. 07/01/2014 Appointment: Nay Martinez [facility]Ptel[phone] [facility] Follow up 07/01/2014 Patient Education: Patient Medication Summary Completed 07/01/2014 Patient Education: Hypertension Completed 07/01/2014 Care Plan: Referral Order SNOMED-CT : [id number] Ordered 07/01/2014 Visit Plan: Hypertension - well [...] treatment. 04/01/2014 Appointment: Nay Martinez [facility]Ptel: [phone] [facility] Follow up 04/01/2014 Patient Education: Patient [...] of treatment. 01/13/2014 Appointment: Nay Martinez WPtel: [address] [place], [place] [phone] Follow up 01/13/2014 Patient Education: Patient Medication Summary Completed 01/13/2014 Patient Education: Hypertension Completed 01/13/2014 Care Plan: COMPLETE CBC AUTOMATED LOINC : 28391-9 Ordered 01/13/2014 Visit Plan: Knee pain has improved - pt needs to continue with use of the voltaren gel, no change in treatment at this time, he is not interested in seeing an orthopedic surgeon until his knee pain is not controlled with the voltaren gel. 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 10/15/2013 Appointment: Nay Martinez WPtel: [address] [place], [place] [phone] Follow up 10/15/2013 Patient Education: Patient Medication Summary Completed 10/15/2013 Patient Education: Hypertension Completed 10/15/2013 Appointment: Nay Martinez WPtel: [address] [place], [place] [phone] Follow up 10/02/2013 Visit Plan: Lower leg pain - rx for voltaren gel to be used on right knee four times daily to alleviate pain in knee. Pt to use walker - RX for rolator walker. 09/11/2013 Appointment: Nay Martinez WPtel: [address] [place], [place] [phone] Other 09/11/2013 Patient Education: Patient Medication Summary [...] current treatement. 08/22/2013 Appointment: Rosa Aguilar WPtel: [facility]5 [facility] [place] [address] Follow up 08/22/2013 Patient Education: Patient Medication Summary Completed 08/22/2013 Visit Plan: Qiffagnzevr-jumqchll-lu ntinue treatment-return in 2 weeks for follow up 08/08/2013 Appointment: Rosa Aguilar WPtel: [facility]5 [facility] [place] [address] Follow up 08/08/2013 Patient Education: Patient Medication [...] current plan of treatment. Skin lesion on hinduism - pt to use flurouracil on lesions on hinduism. OA of knees - pt to try voltaren gel. 06/25/2013 Appointment: Nay Martinez WPtel: [facility]5 [facility] Follow up 06/25/2013 Patient Education: Patient [...] acute conerns. 03/26/2013 Appointment: Nay Martinez WPtel: [address] [place], [place] [phone] Follow up 03/26/2013 Patient Education: Patient Medication Summary Completed 03/26/2013 Patient Education: Hypertension Completed 03/26/2013 Appointment: Rosa Aguilar WPtel: [address] [place], [place] [id number] [place] [address] Nurse Visit 01/14/2013 Patient Education: Patient Medication Summary Completed 01/14/2013 Visit Plan: Wound Instructions - Pt was instruced to keep the wound clean, wash with antibacterial soap, use triple antibiotic ointment, call if redness, pustular drainage, or any other acute conerns. 12/25/2012 Appointment: Rosa Aguilar WPtel: [address] [place], [place] [phone] Surgical Procedure 12/25/2012 Patient Education: Patient Medication [...] be weak. 11/20/2012 Appointment: Nay Martinez WPtel: [address] [place], [place] [phone] Follow up 11/20/2012 Patient Education: Patient Medication [...] days. 08/21/2012 Appointment: Nay Martinez [facility]Ptel: [phone] [facility] Follow up 08/21/2012 Patient Education: Hypertension Completed 08/21/2012 Patient Education: Patient Medication Summary Completed 08/21/2012 Visit Plan: Subdural hematoma-recen t fall-decreased in size with tiny acute component-plan to repeat CT in 2 weeks Low back ppfu-gaascefcgbu-MM joint Injection today in the office - Pt was given post - injection instructions. The pt has been advised to use antiinflammatories post injection today, ice to the injected site, call if redness, warmth, or increased pain occurs at the site of injection. 06/28/2012 Appointment: Rosa [facility]ilar [phone] [place] [address] Other 06/28/2012 Patient Education: Patient Medication Summary [...] week. 05/21/2012 Appointment: Nay Martinez [facility]Ptel: [phone] [facility] [facility] follow up 05/21/2012 Patient Education: Patient Medication Summary Completed 05/21/2012 Patient Education: Hypertension Completed 05/21/2012 Appointment: Nay Martinez WPtel: [phone] [facility] Follow up 05/15/2012 Visit Plan: Fall-sudden onset of ri ght lower extremity weakness-Dr Martinez in to evaluate patient-plan to admit for observation and further work up which includes a STAT CT of the head and labs. Patient and verbalize understanding. 04/26/2012 Appointment: Nay Martinez WPtel: [phone] [facility] balance problem, fall 1 month ago [...] treatment. 02/14/2012 Appointment: Nay Martinez WPtel: [phone] [facility] Established Patient Preventative visit 02/14/2012 Patient [...] Weight loss - discussed the need for Lewis to not loose more weight. He reports that he has actually gained weight in the past few weeks since moving to [facility]. Knee pain - has improved with flector patches, no change in current treatment. HTN - controlled - no change in medications. I have encouraged Omid to check his blood pressures oc casionally at home and bring in his list at his next office visit. 10/11/2011 Appointment: Nay Martinez WPtel: [facility] Other 10/11/2011 Patient Education: Patient Medication [...] OF BLOOD. 07/12/2011 Appointment: Nay Martinez WPtel: [facility] Other 07/12/2011 Patient Education: Patient Medication Summary Completed 07/12/2011 Patient Education: High Blood Pressure: Essential Hypertension Completed 07/12/2011 Visit Plan: Knee pain- uncontrolled - but improving, recommend watchful waiting and to use FLECTOR PATCH, 1/4 of a patch and change twice daily.. Call if the pain worsens. 05/11/2011 Appointment: Nay Martinez WPtel: [facility]1 [address] Other 05/11/2011 Patient Education: Patient Medication [...] in medications. 04/12/2011 Appointment: Nay Martinez WPtel: [facility]0 [address] Other 04/12/2011 Patient Education: Patient Medication [...] this time. 01/11/2011 Appointment: Nay Martinez WPtel: [facility]3 [address] Other 01/11/2011 Patient Education: Patient Medication Summary Completed 01/11/2011 Referral: Cris Egan Referral Relationship Referral: Dayron Ballesteros Referral Appointment Requested Referral: Kings Valles WPtel: [phone] [id number] [place] Referral Relationship Referral: Carl Yu Referral [...] gel. 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 The pt has been advised to use antiinflammatories post injection today, ice to the injected site, call if redness, warmth, or increased pain occurs at the site of injection. . Celllulitis-improv ed-continue treatment-return in 2 weeks for follow up joint juice, glucosa mine - at [facility] ask about welnesse liquid Glucosamine and [...] removed. joint juice, glucosa mine - at [facility] ask about welnesse liquid Glucosamine and [...] current plan of treatment. Skin lesion on hinduism - pt to use flurouracil on lesions on hinduism. OA of knees - pt to try [...] to have his knee operated on at [facility], I have placed a phone [...] weak. try casey candy trung ws or csaey cookies to help decrease the stomach upset/gas. [...] Weight loss - discussed the need for Lewis to not loose more weight. He reports that he has actually gained weight in the past few weeks since moving to [facility]. Knee pain - has improved [...]
--- OUTSIDE RECORDS SUMMARY | 2019-07-11 12:56 | XMS REPORT | Continuity of Care Document ---
Author Organization Unknown Address Unknown Phone Unavailable Allergies Active Description Code Type Severity Reaction Onset Reported/Identified Relationship to Patient Clinical Status Yes NKANo Known Allergies NKA Miscellaneous Allergy Unknown N/A 08/24/2005 Medications There is no data. 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, CEREBRAL INFARCTION 04/26/2012 Ot 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 04/26/2012 Ot V45.82 PER CUTANEOUS TRANSLUM CORON ANGIOPLASTY 05/12/2012 Ot 272.4 HYPE RLIPIDEMIA NEC/NOS 05/12/2012 Ot 294.20 DEM ENTIA, UNSPECIFIED, WITHOUT BEHAVIORA 05/12/2012 Ot 333.94 RES TLESS LEGS SYNDROME 05/12/2012 Ot 401.9 HYPE RTENSION NOS 05/12/2012 Ot 414.01 COR ONARY ATHEROSCLEROSIS OF [place] CORON 05/12/2012 Ot 530.81 ESO PHAGEAL REFLUX 05/12/2012 Ot 715.90 OST EOARTHROS NOS- UNSPEC 05/12/2012 Ot 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, CEREBRAL INFARCTION 05/12/2012 Ot V15.88 HIS TORY OF FALL 05/12/2012 Ot 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 05/12/2012 Ot V45.82 PER CUTANEOUS TRANSLUM CORON ANGIOPLASTY 05/12/2012 Ot V57.1 PHYS ICAL THERAPY NEC 05/12/2012 Ot V57.21 ENC OUNTER FOR OCCUPATIONAL THERAPY 05/12/2012 Ot V58.43 AFT ERCARE POST SURGERY INJURY/TRAUMA 06/17/2014 Ot 599.70 06/17/2014 Ot 600.00 06/17/2014 Ot 753.10 06/17/2014 Ot 429.3 06/17/2014 Ot 550.90 06/17/2014 Ot V43.3 06/17/2014 Ot V43.65 06/17/2014 Ot V58.61 06/17/2014 Ot V58.69 06/17/2014 Ot V72.63 06/17/2014 Ot V72.81 06/17/2014 Ot V74.8 06/17/2014 Ot 397.0 06/17/2014 Ot 414.01 06/17/2014 Ot 424.0 06/17/2014 Ot 429.3 06/17/2014 Ot V43.3 06/17/2014 Ot V45.82 06/17/2014 Ot 414.01 06/17/2014 Ot 429.3 06/17/2014 Ot V45.82 06/17/2014 Ot 789.09 06/17/2014 Ot 998.11 06/17/2014 Ot 397.0 06/17/2014 Ot 414.00 06/17/2014 Ot 424.0 06/17/2014 Ot 429.3 06/17/2014 Ot V43.3 06/17/2014 Ot 432.1 06/17/2014 Ot 432.1 06/17/2014 Ot 721.3 06/17/2014 Ot 724.5 06/17/2014 Ot 737.30 06/17/2014 Ot E000.8 06/17/2014 Ot E849.0 06/17/2014 Ot E888.9 06/17/2014 Ot 432.1 06/17/2014 GEORGETTE LANGFORD Ot 272.4 06/17/2014 GEORGETTE LANGFORD Ot 397.0 06/17/2014 GEORGETTE LANGFORD Ot 401.9 06/17/2014 GEORGETTE LANGFORD Ot 414.01 06/17/2014 ABHIJEET PA, GEORGETTE Haider Ot 424.0 06/17/2014 ABHIJEET PA, GEORGETTE Haider Ot V12.54 06/17/2014 ABHIJEET PA, GEORGETTE Maloney Ot V43.3 06/17/2014 ABHIJEET PA, GEORGETTE Haider Ot 272.4 06/17/2014 ABHIJEET PA, GEORGETTE K Ot 401.9 06/17/2014 ABHIJEET PA, GEORGETTE K Ot 414.00 06/17/2014 ABHIJEET PA, GEORGETTE Maloney Ot V12.54 06/17/2014 ABHIJEET PA, GEORGETTE Maloney Ot V43.3 11/23/2014 RENETTA DO, AUGUSTINE F Ot 285.1 AC POSTHEMORRHAG ANEMIA 11/23/2014 RENETTA DO, AUGUSTINE F Ot 294.20 DEMENTIA, UNSPECIFIED, WITHOUT BEHAVIORA 11/23/2014 RENETTA DO, AUGUSTINE F Ot 401.9 HYPERTENSION NOS 11/23/2014 RENETTA DO, AUGUSTINE F Ot 530.81 ESOPHAGEAL REFLUX 11/23/2014 RENETTA DO, AUGUSTINE F Ot 715.36 LOC OSTEOARTH NOS-L/LEG 11/23/2014 RENETTA DO, AUGUSTINE F Ot 780.52 INSOMNIA, UNSPECIFIED 11/23/2014 RENETTA DO, AUGUSTINE F Ot 787.02 NAUSEA ALONE 11/23/2014 RENETTA DO, AUGUSTINE F Ot 790.5 ABN SERUM ENZY LEVEL NEC 11/23/2014 RENETTA DO AUGUSTINE F Ot 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 11/23/2014 RENETTA , AUGUSTINE F Ot V58.61 ANTICOAGULANTS,LT,CURRENT USE 11/25/2014 ELEAZAR DERAS, LUCAS E Ot 285.9 11/25/2014 ELEAZAR DERAS, LUCAS Masters Ot 401.9 11/25/2014 ELEAZAR DERAS, LUCAS Masters Ot V43.3 11/25/2014 ELEAZAR DERAS, LUCAS Masters Ot V43.6 5 11/25/2014 ELEAZAR DERAS, LUCAS E Ot V54.8 1 11/25/2014 ELEAZAR DERAS, LUCAS E Ot V57.8 9 11/25/2014 ELEAZAR DERAS, LUCAS E Ot V58.6 1 11/27/2014 ELEAZAR DERAS, LUCAS Masters Ot 285.9 ANEMIA NOS 11/27/2014 ELEAZAR DERAS, LUCAS Masters Ot 294.2 0 DEMENTIA, UNSPECIFIED, WITHOUT BEHAVIORA 11/27/2014 LUCAS BUSH MD Ot 401.9 HYPERTENSION NOS 11/27/2014 LUCAS BUSH MD Ot 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 11/27/2014 LUCAS BUSH MD Ot V43.6 5 KNEE JOINT REPLACEMENT STATUS 11/27/2014 LUCAS BUSH MD Ot V54.8 1 AFTERCARE FOLLOWING JOINT REPLACEMENT 11/27/2014 LUCAS BUSH MD Ot V57.8 9 REHABILITATION PROC NEC 11/27/2014 LUCAS BUSH MD Ot V58.6 1 ANTICOAGULANTS,LT,CURRENT USE 12/03/2014 RENETTA DO, AUGUSTINE Scott Ot 715.36 12/03/2014 RENETTA DO, AUGUSTINE Scott Ot V72.63 12/03/2014 RENETTA DO, AUGUSTINE Scott Ot V72.81 12/03/2014 RENETTA DO, AUGUSTINE Scott Ot V72.83 12/03/2014 RENETTA DO, AUGUSTINE Scott Ot V74.8 12/04/2014 Ot 397.0 12/04/2014 Ot 414.01 12/04/2014 Ot 424.0 12/04/2014 Ot 429.3 12/04/2014 Ot V43.3 12/04/2014 Ot V45.82 12/04/2014 Ot 414.01 12/04/2014 Ot 429.3 12/04/2014 Ot V45.82 12/04/2014 Ot 789.09 12/04/2014 Ot 998.11 12/04/2014 Ot 397.0 12/04/2014 Ot 414.00 12/04/2014 Ot 424.0 12/04/2014 Ot 429.3 12/04/2014 Ot V43.3 12/04/2014 Ot 432.1 12/04/2014 Ot 432.1 12/04/2014 Ot 721.3 12/04/2014 Ot 724.5 12/04/2014 Ot 737.30 12/04/2014 Ot E000.8 12/04/2014 Ot E849.0 12/04/2014 Ot E888.9 12/04/2014 Ot 432.1 12/04/2014 GEORGETTE LANGFORD Ot 272.4 12/04/2014 GEORGETTE LANGFORD Ot 397.0 12/04/2014 GEORGETTE LANGFORD Ot 401.9 12/04/2014 ABHIJEET PA, GEORGETTE Maloney Ot 414.01 12/04/2014 ABHIJEET PA, GEORGETTE Maloney Ot 424.0 12/04/2014 ABHIJEET PA, GEORGETTE Maloney Ot V12.54 12/04/2014 ABHIJEET PA, GEORGETTE Maloney Ot V43.3 12/04/2014 ABHIJEET PA, GEORGETTE Maloney Ot 272.4 12/04/2014 ABHIJEET PA, GEORGETTE Maloney Ot 401.9 12/04/2014 ABHIJEET PA, GEORGETTE Maloney Ot 414.00 12/04/2014 ABHIJEET PA, GEORGETTE Maloney Ot V12.54 12/04/2014 ABHIJEET PA, GEORGETTE Maloney Ot V43.3 12/04/2014 Ot 272.4 12/04/2014 Ot 401.9 12/04/2014 Ot 414.00 12/04/2014 Ot 433.10 12/04/2014 RENETTA DO, AUGUSTINE F Ot 715.36 12/04/2014 RENETTA DO, AUGUSTINE F Ot V72.63 12/04/2014 RENETTA DO, AUGUSTINE F Ot V72.81 12/04/2014 RENETTA DO, AUGUSTINE F Ot V72.83 12/04/2014 RENETTA DO, AUGUSTINE F Ot V74.8 12/22/2014 RENETTA DO, AUGUSTINE F Ot 715.36 12/22/2014 RENETTA DO, AUGUSTINE F Ot V72.63 12/22/2014 RENETTA DO, AUGUSTINE F Ot V72.81 12/22/2014 RENETTA DO, AUGUSTINE F Ot V72.83 12/22/2014 RENETTA DO, AUGUSTINE F Ot V74.8 01/28/2015 IGGY DERAS, YOU Victor Ot 173.32 SQUAMOUS CELL CARCINOMA OF SKIN OF OTH 01/28/2015 IGGY DERAS, YOU Victor Ot 701.9 SKIN HYPERTRO/ATROPH NOS 01/28/2015 IGGY DERAS, YOU Victor Ot V58.61 ANTICOAGULANTS,LT,CURRENT USE 01/28/2015 IGGY DERAS, YOU Victor Ot V58.69 OTH MED,LT,CURRENT USE 02/05/2016 Ot 397.0 TRIC USPID VALVE DISEASE 02/05/2016 Ot 414.00 COR ON ATHEROSCLER NOS TYPE VESSEL, NATIV 02/05/2016 Ot 424.0 MITR AL VALVE DISORDER 02/05/2016 Ot 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 02/05/2016 Ot 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 02/05/2016 Ot 432.1 SUBD URAL HEMORRHAGE 02/05/2016 Ot 432.1 SUBD URAL HEMORRHAGE 02/05/2016 Ot 721.3 LUMB OSACRAL SPONDYLOSIS 02/05/2016 Ot 724.5 BACK ACHE NOS 02/05/2016 Ot 737.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 02/05/2016 Ot E000.8 OTH ER EXTERNAL CAUSE STATUS 02/05/2016 Ot E849.0 ACC IDENT IN HOME 02/05/2016 Ot 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 02/05/2016 Ot 432.1 SUBD URAL HEMORRHAGE 02/05/2016 GEORGETTE LANGFORD Ot 272.4 HYPERLIPIDEMIA NEC/NOS 02/05/2016 GEORGETTE LANGFORD Ot 397.0 TRICUSPID VALVE DISEASE 02/05/2016 GEORGETTE LANGFORD Ot 401.9 HYPERTENSION NOS 02/05/2016 GEORGETTE LANGFORD Ot 414.01 CORONARY ATHEROSCLEROSIS OF [place] CORON 02/05/2016 GEORGETTE LANGFORD Ot 424.0 MITRAL VALVE DISORDER 02/05/2016 GEORGETTE LANGFORD Ot V12.54 PERSONAL HX OF TIA, CEREBRAL INFARCTION 02/05/2016 GEORGETTE LANGFORD Ot 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 02/05/2016 GEORGETTE LANGFORD Ot 272.4 HYPERLIPIDEMIA NEC/NOS 02/05/2016 GEORGETTE LANGFORD Ot 401.9 HYPERTENSION NOS 02/05/2016 GEORGETTE LANGFORD Ot 414.00 CORON ATHEROSCLER NOS TYPE VESSEL, NATIV 02/05/2016 GEORGETTE LANGFORD Ot V12.54 PERSONAL HX OF TIA, CEREBRAL INFARCTION 02/05/2016 GEORGETTE LANGFORD Ot 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 02/05/2016 Ot 272.4 HYPE RLIPIDEMIA NEC/NOS 02/05/2016 Ot 401.9 HYPE RTENSION NOS 02/05/2016 Ot 414.00 COR ON ATHEROSCLER NOS TYPE VESSEL, NATIV 02/05/2016 Ot 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 W O CEREBRAL IN 02/05/2016 AUGUSTINE JACKSON DO Ot 715.36 LOC OSTEOARTH NOS-L/LEG 02/05/2016 AUGUSTINE JACKSON DO Ot V72.63 PRE-PROCEDURAL LABORATORY EXAMINATION 02/05/2016 AUGUSTINE JACKSON DO Ot V72.81 [id number] CARDIOVASCULAR 02/05/2016 AUGUSTINE JACKSON DO Ot V72.83 EXAM PRE-OPERATIVE NEC 02/05/2016 AUGUSTINE JACKSON DO Ot V74.8 SCREEN-BACTERIAL DIS NEC 02/05/2016 IGGY DERAS, YOU Victor Ot 709.9 SKIN DISORDER NOS 02/05/2016 IGGY DERAS, YOU Victor Ot V72.84 EXAM PRE-OPERATIVE NOS 02/05/2016 IGGY DERAS, YOU Victor Ot V74.8 SCREEN-BACTERIAL DIS NEC 02/05/2016 Ot 397.0 TRIC USPID VALVE DISEASE 02/05/2016 Ot 414.00 COR ON ATHEROSCLER NOS TYPE VESSEL, NATIV 02/05/2016 Ot 424.0 MITR AL VALVE DISORDER 02/05/2016 Ot 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 02/05/2016 Ot 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 02/05/2016 Ot 432.1 SUBD URAL HEMORRHAGE 02/05/2016 Ot 432.1 SUBD URAL HEMORRHAGE 02/05/2016 Ot 721.3 LUMB OSACRAL SPONDYLOSIS 02/05/2016 Ot 724.5 BACK ACHE NOS 02/05/2016 Ot 737.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 02/05/2016 Ot E000.8 OTH ER EXTERNAL CAUSE STATUS 02/05/2016 Ot E849.0 ACC IDENT IN HOME 02/05/2016 Ot 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 02/05/2016 Ot 432.1 SUBD URAL HEMORRHAGE 02/05/2016 GEORGETTE LANGFORD Ot 272.4 HYPERLIPIDEMIA NEC/NOS 02/05/2016 GEORGETTE LANGFORD Ot 397.0 TRICUSPID VALVE DISEASE 02/05/2016 GEORGETTE LANGFORD Ot 401.9 HYPERTENSION NOS 02/05/2016 GEORGETTE LANGFORD Ot 414.01 CORONARY ATHEROSCLEROSIS OF [place] CORON 02/05/2016 LEXIS LANGFORDDITH Haider Ot 424.0 MITRAL VALVE DISORDER 02/05/2016 ABHIJEET WEBSTER GEORGETTE Haider Ot V12.54 PERSONAL HX OF TIA, CEREBRAL INFARCTION 02/05/2016 ABHIJEET WEBSTER GEORGETTE Haider Ot 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 02/05/2016 ABHIJEET WEBSTER GEORGETTE Haider Ot 272.4 HYPERLIPIDEMIA NEC/NOS 02/05/2016 ABHIJEET WEBSTER GEORGETTE Haider Ot 401.9 HYPERTENSION NOS 02/05/2016 ABHIJEET EWBSTER GEORGETTE Haider Ot 414.00 CORON ATHEROSCLER NOS TYPE VESSEL, NATIV 02/05/2016 ABHIJEET WEBSTER GEORGETTE Haider Ot V12.54 PERSONAL HX OF TIA, CEREBRAL INFARCTION 02/05/2016 ABHIJEET WEBSTER GEORGETTE K Ot 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 02/05/2016 Ot 272.4 HYPE RLIPIDEMIA NEC/NOS 02/05/2016 Ot 401.9 HYPE RTENSION NOS 02/05/2016 Ot 414.00 COR ON ATHEROSCLER NOS TYPE VESSEL, NATIV 02/05/2016 Ot 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 W O CEREBRAL IN 02/05/2016 AUGUSTINE JACKSON DO Ot 715.36 LOC OSTEOARTH NOS-L/LEG 02/05/2016 AUGUSTINE JACKSON DO Ot V72.63 PRE-PROCEDURAL LABORATORY EXAMINATION 02/05/2016 AUGUSTINE JACKSON DO Ot V72.81 [id number] CARDIOVASCULAR 02/05/2016 AUGUSTINE JACKSON DO Ot V72.83 EXAM PRE-OPERATIVE NEC 02/05/2016 AUGUSTINE JACKSON DO Ot V74.8 SCREEN-BACTERIAL DIS NEC 02/05/2016 IGGY DERAS, YOU Victor Ot 709.9 SKIN DISORDER NOS 02/05/2016 IGGY DERAS, YOU Victor Ot V72.84 EXAM PRE-OPERATIVE NOS 02/05/2016 IGGY DERAS, YOU Victor Ot V74.8 SCREEN-BACTERIAL DIS NEC 02/08/2016 NEFTALY DERAS, MARNI Goodman Ot E78. 2 MIXED HYPERLIPIDEMIA 02/08/2016 MARNI HIGGINBOTHAM MD Ot I10 ESSENTIAL (PRIMARY) HYPERTENSION 02/08/2016 MARNI HIGGINBOTHAM MD Ot I25. 10 ATHSCL HEART DISEASE OF [place] CORONARY 02/08/2016 MARNI HIGGINBOTHAM MD, Ot R07. 9 CHEST PAIN, UNSPECIFIED 02/08/2016 MARNI HIGGINBOTHAM MD Ot Z79. 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 02/10/2016 Ot 432.1 SUBD URAL HEMORRHAGE 02/10/2016 Ot 432.1 SUBD URAL HEMORRHAGE 02/10/2016 Ot 721.3 LUMB OSACRAL SPONDYLOSIS 02/10/2016 Ot 724.5 BACK ACHE NOS 02/10/2016 Ot 737.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 02/10/2016 Ot E000.8 OTH ER EXTERNAL CAUSE STATUS 02/10/2016 Ot E849.0 ACC IDENT IN HOME 02/10/2016 Ot 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 02/10/2016 Ot 432.1 SUBD URAL HEMORRHAGE 02/10/2016 GEORGETTE LANGFORD Ot 272.4 HYPERLIPIDEMIA NEC/NOS 02/10/2016 GEORGETTE LANGFORD Ot 397.0 TRICUSPID VALVE DISEASE 02/10/2016 GEORGETTE LANGFORD Ot 401.9 HYPERTENSION NOS 02/10/2016 GEORGETTE LANGFORD Ot 414.01 CORONARY ATHEROSCLEROSIS OF [place] CORON 02/10/2016 GEORGETTE LANGFORD Ot 424.0 MITRAL VALVE DISORDER 02/10/2016 GEORGETTE LANGFORD Ot V12.54 PERSONAL HX OF TIA, CEREBRAL INFARCTION 02/10/2016 GEORGETTE LANGFORD Ot 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 02/10/2016 GEORGETTE LANGFORD Ot 272.4 HYPERLIPIDEMIA NEC/NOS 02/10/2016 GEORGETTE LANGFORD Ot 401.9 HYPERTENSION NOS 02/10/2016 GEORGETTE LANGFORD Ot 414.00 CORON ATHEROSCLER NOS TYPE VESSEL, NATIV 02/10/2016 GEORGETTE LANGFORD Ot V12.54 PERSONAL HX OF TIA, CEREBRAL INFARCTION 02/10/2016 GEORGETTE LANGFORD Ot 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 02/10/2016 Ot 272.4 HYPE RLIPIDEMIA NEC/NOS 02/10/2016 Ot 401.9 HYPE RTENSION NOS 02/10/2016 Ot 414.00 COR ON ATHEROSCLER NOS TYPE VESSEL, NATIV 02/10/2016 Ot 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 W O CEREBRAL IN 02/10/2016 RENETTA LOPEZ AUGUSTINE Scott Ot 715.36 LOC OSTEOARTH NOS-L/LEG 02/10/2016 RENETTA LOPEZ AUGUSTINE Scott Ot V72.63 PRE-PROCEDURAL LABORATORY EXAMINATION 02/10/2016 RENETTA LOPEZ AUGUSTINE Scott Ot V72.81 [id number] CARDIOVASCULAR 02/10/2016 RENETTA LOPEZ AUGUSTINE Tyler Ot V72.83 EXAM PRE-OPERATIVE NEC 02/10/2016 AUGUSTINE JACKSON DO Ot V74.8 SCREEN-BACTERIAL DIS NEC 02/10/2016 IGGY DERAS, YOU Victor Ot 709.9 SKIN DISORDER NOS 02/10/2016 IGGY DERAS, YOU Victor Ot V72.84 EXAM PRE-OPERATIVE NOS 02/10/2016 YOU PARKINSON MD Ot V74.8 SCREEN-BACTERIAL DIS NEC 02/10/2016 MARNI HIGGINBOTHAM MD Ot E78. 2 MIXED HYPERLIPIDEMIA 02/10/2016 MARNI HIGGINBOTHAM MD Ot I10 ESSENTIAL (PRIMARY) HYPERTENSION 02/10/2016 MARNI HIGGINBOTHAM MD Ot I25. 10 ATHSCL HEART DISEASE OF [place] CORONARY 02/10/2016 MARNI HIGGINBOTHAM MD Ot R07. 9 CHEST PAIN, UNSPECIFIED 02/10/2016 MARNI HIGGINBOTHAM MD Ot Z79. 01 [employer] (CURRENT) USE OF ANTICOAGULANT 02/16/2016 MARNI HIGGINBOTHAM MD Ot I77.810 THORACIC AORTIC ECTASIA 02/16/2016 MARNI HIGGINBOTHAM MD Ot K44. 9 DIAPHRAGMATIC HERNIA WITHOUT OBSTRUCTION 02/26/2016 MARNI HIGGINBOTHAM MD Ot E78. 2 MIXED HYPERLIPIDEMIA 02/26/2016 MARNI HIGGINBOTHAM MD Ot I10 ESSENTIAL (PRIMARY) HYPERTENSION 02/26/2016 MARNI HIGGINBOTHAM MD Ot I25. 10 ATHSCL HEART DISEASE OF [place] CORONARY 02/26/2016 MARNI HIGGINBOTHAM MD Ot R07. 9 CHEST PAIN, UNSPECIFIED 02/26/2016 NEFTALY DERAS, MARNI Goodman Ot Z79. 01 [facility] (CURRENT) USE OF ANTICOAGULANT 02/29/2016 REGAN GOMEZ ROLL OR TAPE EDGE MACHINE OPERATOR Ot N28.1 CYST OF KIDNEY, ACQUIRED 03/03/2016 REGAN GOMEZ ROLL OR TAPE EDGE MACHINE OPERATOR Ot N28.1 CYST OF KIDNEY, ACQUIRED 03/08/2016 NEFTALY DERAS, MARNI Goodman Ot I77.810 THORACIC AORTIC ECTASIA 03/08/2016 MARNI HIGGINBOTHAM MD Ot K44. 9 DIAPHRAGMATIC HERNIA WITHOUT OBSTRUCTION 03/10/2016 MARNI HIGGINBOTHAM MD Ot I77.810 THORACIC AORTIC ECTASIA 03/10/2016 MARNI HIGGINBOTHAM MD Ot K44. 9 DIAPHRAGMATIC HERNIA WITHOUT OBSTRUCTION 03/18/2016 REGAN GOMEZ ROLL OR TAPE EDGE MACHINE OPERATOR Ot N28.1 CYST OF KIDNEY, ACQUIRED 03/28/2016 REGAN GOMEZ ROLL OR TAPE EDGE MACHINE OPERATOR Ot N28.1 CYST OF KIDNEY, ACQUIRED 07/27/2016 SOLOMON JAFFE WINERY CELLAR HAND Ot N28.1 CYST OF KIDNEY, ACQUIRED 08/18/2016 SOLOMON JAFFE WINERY CELLAR HAND Ot N28.1 CYST OF KIDNEY, ACQUIRED 08/26/2016 SOLOMON JAFFE WINERY CELLAR HAND Ot N28.1 CYST OF KIDNEY, ACQUIRED 11/17/2016 CARIN YAÑEZ DO Ot I10 ESSENTIAL (PRIMARY) HYPERTENSION 11/17/2016 CARIN YAÑEZ DO Ot K21.9 GASTRO-ESOPHAGEAL REFLUX DISEASE WITHOUT 11/17/2016 OTILIOCARIN Barrett DO Ot M19.90 UNSPECIFIED OSTEOARTHRITIS, UNSPECIFIED 11/17/2016 CARIN YAÑEZ DO Ot M54.2 CERVICALGIA 11/17/2016 CARIN YAÑEZ DO Ot S00.421 A BLISTER (NONTHERMAL) OF RIGHT EAR, INITI 11/17/2016 CARIN YAÑEZ DO Ot S00.93X A CONTUSION OF UNSPECIFIED PART OF HEAD, I 11/17/2016 CARIN YAÑEZ DO Ot S09.90X A UNSPECIFIED INJURY OF HEAD, INITIAL ENCO 11/17/2016 CARIN YAÑEZ DO Ot S16.1XX A STRAIN OF MUSCLE, FASCIA AND TENDON AT N 11/17/2016 CARIN YAÑEZ DO Ot S46.911 A STRAIN UNSP MUSC/FASC/TEND AT [facility]/UP A 11/17/2016 CARIN YAÑEZ DO, Ot V47.5XX A ZONING ADMINISTRATOR INJURED IN CLSN WITH STATNRY 11/17/2016 CARIN YAÑEZ DO, Ot Y92.[address] OF OCCURRENCE O 11/17/2016 CARIN YAÑEZ DO, Ot Z23 ENCOUNTER FOR IMMUNIZATION 11/17/2016 CARIN YAÑEZ DO, Ot Z82.49 FAMILY HX OF ISCHEM HEART DIS AND OTH DI 11/17/2016 CARIN YAÑEZ DO Ot Z85.828 PERSONAL HISTORY OF OTHER MALIGNANT NEOP 11/17/2016 CARIN YAÑEZ DO, Ot Z86.73 PRSNL HX OF TIA (TIA), AND CEREB INFRC W 11/17/2016 CARIN YAÑEZ DO, Ot Z87.820 PERSONAL HISTORY OF TRAUMATIC BRAIN INJU 11/17/2016 CARIN YAÑEZ DO, Ot Z90.49 ACQUIRED ABSENCE OF OTHER SPECIFIED PART 11/17/2016 CARIN YAÑEZ DO, Ot Z90.89 ACQUIRED ABSENCE OF OTHER ORGANS 11/17/2016 CARIN YAÑEZ DO Ot Z95.2 PRESENCE OF PROSTHETIC HEART VALVE 11/17/2016 CARIN YAÑEZ DO Ot Z96.653 PRESENCE OF ARTIFICIAL KNEE JOINT, BILAT 11/17/2016 CARIN YAÑEZ DO, Ot Z98.890 OTHER SPECIFIED POSTPROCEDURAL STATES 11/21/2016 CARIN YAÑEZ DO Ot I10 ESSENTIAL (PRIMARY) HYPERTENSION 11/21/2016 CARIN YAÑEZ DO Ot K21.9 GASTRO-ESOPHAGEAL REFLUX DISEASE WITHOUT 11/21/2016 CARIN YAÑEZ DO Ot M19.90 UNSPECIFIED OSTEOARTHRITIS, UNSPECIFIED 11/21/2016 CARIN YAÑEZ DO Ot M54.2 CERVICALGIA 11/21/2016 CARIN YAÑEZ DO Ot S00.421 A BLISTER (NONTHERMAL) OF RIGHT EAR, INITI 11/21/2016 CARIN YAÑEZ DO Ot S00.93X A CONTUSION OF UNSPECIFIED PART OF HEAD, I 11/21/2016 CARIN YAÑEZ DO Ot S09.90X A UNSPECIFIED INJURY OF HEAD, INITIAL ENCO 11/21/2016 CARIN YAÑEZ DO Ot S16.1XX A STRAIN OF MUSCLE, FASCIA AND TENDON AT N 11/21/2016 OTILIO LOPEZ, CARIN Maloney Ot S46.911 A STRAIN UNSP MUSC/FASC/TEND AT [facility]/UP A 11/21/2016 TIN YAÑEZ DOA Haider Ot V47.5XX A ZONING ADMINISTRATOR INJURED IN CLSN WITH STATNRY 11/21/2016 OTILIO DO CARIN Haider Ot Y92.[address] OF OCCURRENCE O 11/21/2016 CARIN YAÑEZ DO Ot Z23 ENCOUNTER FOR IMMUNIZATION 11/21/2016 TIN YAÑEZ DOA Haider Ot Z82.49 FAMILY HX OF ISCHEM HEART DIS AND OTH DI 11/21/2016 CARIN YAÑEZ DO Ot Z85.828 PERSONAL HISTORY OF OTHER MALIGNANT NEOP 11/21/2016 TIN YAÑEZ DOA Haider Sherwood Z86.73 PRSNL HX OF TIA (TIA), AND CEREB INFRC W 11/21/2016 TIN YAÑEZ DOA Haider Sherwood Z87.820 PERSONAL HISTORY OF TRAUMATIC BRAIN INJU 11/21/2016 TIN YAÑEZ DOA Haider Ot Z90.49 ACQUIRED ABSENCE OF OTHER SPECIFIED PART 11/21/2016 TIN YAÑEZ DOA Haider Ot Z90.89 ACQUIRED ABSENCE OF OTHER ORGANS 11/21/2016 TIN YAÑEZ DOA Haider Ot Z95.2 PRESENCE OF PROSTHETIC HEART VALVE 11/21/2016 TIN YAÑEZ DOA Haider Ot Z96.653 PRESENCE OF ARTIFICIAL KNEE JOINT, BILAT 11/21/2016 OTILIO LOPEZ CARIN Haider Ot Z98.890 OTHER SPECIFIED POSTPROCEDURAL STATES 12/01/2016 Ot 397.0 TRIC USPID VALVE DISEASE 12/01/2016 Ot 414.00 COR ON ATHEROSCLER NOS TYPE VESSEL, NATIV 12/01/2016 Ot 424.0 MITR AL VALVE DISORDER 12/01/2016 Ot 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 12/01/2016 Ot 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 12/01/2016 Ot 432.1 SUBD URAL HEMORRHAGE 12/01/2016 Ot 432.1 SUBD URAL HEMORRHAGE 12/01/2016 Ot 721.3 LUMB OSACRAL SPONDYLOSIS 12/01/2016 Ot 724.5 BACK ACHE NOS 12/01/2016 Ot 737.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 12/01/2016 Ot E000.8 OTH ER EXTERNAL CAUSE STATUS 12/01/2016 Ot E849.0 ACC IDENT IN HOME 12/01/2016 Ot 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 12/01/2016 Ot 432.1 SUBD URAL HEMORRHAGE 12/01/2016 GEORGTETE LANGFORD Ot 272.4 HYPERLIPIDEMIA NEC/NOS 12/01/2016 GEORGETTE LANGFORD Ot 397.0 TRICUSPID VALVE DISEASE 12/01/2016 GEORGETTE LANGFORD Ot 401.9 HYPERTENSION NOS 12/01/2016 GEORGETTE LANGFORD Ot 414.01 CORONARY ATHEROSCLEROSIS OF [place] CORON 12/01/2016 GEORGETTE LANGFORD Ot 424.0 MITRAL VALVE DISORDER 12/01/2016 GEORGETTE LANGFORD Ot V12.54 PERSONAL HX OF TIA, CEREBRAL INFARCTION 12/01/2016 GEORGETTE LANGFORD Ot 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 12/01/2016 GEORGETTE LANGFORD Ot 272.4 HYPERLIPIDEMIA NEC/NOS 12/01/2016 GEORGETTE LANGFORD Ot 401.9 HYPERTENSION NOS 12/01/2016 GEORGETTE LANGFORD Ot 414.00 CORON ATHEROSCLER NOS TYPE VESSEL, NATIV 12/01/2016 GEORGETTE LANGFORD Ot V12.54 PERSONAL HX OF TIA, CEREBRAL INFARCTION 12/01/2016 GEORGETTE LANGFORD Ot 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 12/01/2016 Ot 272.4 HYPE RLIPIDEMIA NEC/NOS 12/01/2016 Ot 401.9 HYPE RTENSION NOS 12/01/2016 Ot 414.00 COR ON ATHEROSCLER NOS TYPE VESSEL, NATIV 12/01/2016 Ot 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 W O CEREBRAL IN 12/01/2016 AUGUSTINE JACKSON DO Ot 715.36 LOC OSTEOARTH NOS-L/LEG 12/01/2016 AUGUSTINE JACKSON DO Ot V72.63 PRE-PROCEDURAL LABORATORY EXAMINATION 12/01/2016 AUGUSTINE JACKSON DO, Ot V72.81 [id number] CARDIOVASCULAR 12/01/2016 AUGUSTINE JACKSON DO Ot V72.83 EXAM PRE-OPERATIVE NEC 12/01/2016 AUGUSTINE JACKSON DO Ot V74.8 SCREEN-BACTERIAL DIS NEC 12/01/2016 IGGY DERAS, YOU Victor Ot 709.9 SKIN DISORDER NOS 12/01/2016 IGGY DERAS, YOU Victor Ot V72.84 EXAM PRE-OPERATIVE NOS 12/01/2016 IGGY DERAS, YOU Victor Ot V74.8 SCREEN-BACTERIAL DIS NEC 12/01/2016 MARNI HIGGINBOTHAM MD Ot E78. 2 MIXED HYPERLIPIDEMIA 12/01/2016 MARNI HIGGINBOTHAM MD Ot I10 ESSENTIAL (PRIMARY) HYPERTENSION 12/01/2016 MARNI HIGGINBOTHAM MD Ot I25. 10 ATHSCL HEART DISEASE OF [place] CORONARY 12/01/2016 MARNI HIGGINBOTHAM MD Ot R07. 9 CHEST PAIN, UNSPECIFIED 12/01/2016 MARNI HIGGINBOTHAM MD Ot Z79. 01 [facility] (CURRENT) USE OF ANTICOAGULANT 12/01/2016 MARNI HIGGINBOTHAM MD Ot I77.810 THORACIC AORTIC ECTASIA 12/01/2016 MARNI HIGGINBOTHAM MD Ot K44. 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 01/30/2017 Ot 432.1 SUBD URAL HEMORRHAGE 01/30/2017 Ot 432.1 SUBD URAL HEMORRHAGE 01/30/2017 Ot 721.3 LUMB OSACRAL SPONDYLOSIS 01/30/2017 Ot 724.5 BACK ACHE NOS 01/30/2017 Ot 737.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 01/30/2017 Ot E000.8 OTH ER EXTERNAL CAUSE STATUS 01/30/2017 Ot E849.0 ACC IDENT IN HOME 01/30/2017 Ot 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 01/30/2017 Ot 432.1 SUBD URAL HEMORRHAGE 01/30/2017 GEORGETTE LANGFORD Ot 272.4 HYPERLIPIDEMIA NEC/NOS 01/30/2017 GEORGETTE LANGFORD Ot 397.0 TRICUSPID VALVE DISEASE 01/30/2017 GEORGETTE LANGFORD Ot 401.9 HYPERTENSION NOS 01/30/2017 GEORGETTE LANGFORD Ot 414.01 CORONARY ATHEROSCLEROSIS OF [place] CORON 01/30/2017 GEORGETTE LANGFORD Ot 424.0 MITRAL VALVE DISORDER 01/30/2017 GEORGETTE LANGFORD Ot V12.54 PERSONAL HX OF TIA, CEREBRAL INFARCTION 01/30/2017 GEORGETTE LANGFORD Ot 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 01/30/2017 GEORGETTE LANGFORD Ot 272.4 HYPERLIPIDEMIA NEC/NOS 01/30/2017 GEORGETTE LANGFORD Ot 401.9 HYPERTENSION NOS 01/30/2017 GEORGETTE LANGFORD Ot 414.00 CORON ATHEROSCLER NOS TYPE VESSEL, NATIV 01/30/2017 GEORGETTE LANGFORD Ot V12.54 PERSONAL HX OF TIA, CEREBRAL INFARCTION 01/30/2017 GEORGETTE LANGFORD Ot 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 01/30/2017 Ot 272.4 HYPE RLIPIDEMIA NEC/NOS 01/30/2017 Ot 401.9 HYPE RTENSION NOS 01/30/2017 Ot 414.00 COR ON ATHEROSCLER NOS TYPE VESSEL, NATIV 01/30/2017 Ot 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 W O CEREBRAL IN 01/30/2017 AUGUSTINE JACKSON DO Ot 715.36 LOC OSTEOARTH NOS-L/LEG 01/30/2017 AUGUSTINE JACKSON DO Ot V72.63 PRE-PROCEDURAL LABORATORY EXAMINATION 01/30/2017 AUGUSTINE JACKSON DO Ot V72.81 [id number] CARDIOVASCULAR 01/30/2017 AUGUSTINE JACKSON DO Ot V72.83 EXAM PRE-OPERATIVE NEC 01/30/2017 AUGUSTINE JACKSON DO Ot V74.8 SCREEN-BACTERIAL DIS NEC 01/30/2017 IGGY DERAS, YOU Victor Ot 709.9 SKIN DISORDER NOS 01/30/2017 IGGY DERAS, YOU Victor Ot V72.84 EXAM PRE-OPERATIVE NOS 01/30/2017 IGGY DERAS, YOU Victor Ot V74.8 SCREEN-BACTERIAL DIS NEC 01/30/2017 MARNI HIGGINBOTHAM MD Ot E78. 2 MIXED HYPERLIPIDEMIA 01/30/2017 MARNI HIGGINBOTHAM MD Ot I10 ESSENTIAL (PRIMARY) HYPERTENSION 01/30/2017 MARNI HIGGINBOTHAM MD Ot I25. 10 ATHSCL HEART DISEASE OF [place] CORONARY 01/30/2017 MARNI HIGGINBOTHAM MD Ot R07. 9 CHEST PAIN, UNSPECIFIED 01/30/2017 MARNI HIGGINBOTHAM MD Ot Z79. 01 [facility] (CURRENT) USE OF ANTICOAGULANT 01/30/2017 MARNI HIGGINBOTHAM MD Ot I77.810 THORACIC AORTIC ECTASIA 01/30/2017 MARNI HIGGINBOTHAM MD Ot K44. 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 02/01/2017 Ot 432.1 SUBD URAL HEMORRHAGE 02/01/2017 Ot 432.1 SUBD URAL HEMORRHAGE 02/01/2017 Ot 721.3 LUMB OSACRAL SPONDYLOSIS 02/01/2017 Ot 724.5 BACK ACHE NOS 02/01/2017 Ot 737.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 02/01/2017 Ot E000.8 OTH ER EXTERNAL CAUSE STATUS 02/01/2017 Ot E849.0 ACC IDENT IN HOME 02/01/2017 Ot 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 02/01/2017 Ot 432.1 SUBD URAL HEMORRHAGE 02/01/2017 GEORGETTE LANGFORD Ot 272.4 HYPERLIPIDEMIA NEC/NOS 02/01/2017 GEORGETTE LANGFORD Ot 397.0 TRICUSPID VALVE DISEASE 02/01/2017 GEORGETTE LANGFORD Ot 401.9 HYPERTENSION NOS 02/01/2017 GEORGETTE LANGFORD Ot 414.01 CORONARY ATHEROSCLEROSIS OF [place] CORON 02/01/2017 GEORGETTE LANGFORD Ot 424.0 MITRAL VALVE DISORDER 02/01/2017 ABHIJEET WEBSTER GEORGETTE Haider Ot V12.54 PERSONAL HX OF TIA, CEREBRAL INFARCTION 02/01/2017 ABHIJEET WEBSTER GE[place] K Ot 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 02/01/2017 ABHIJEET WEBSTER [place] K Ot 272.4 HYPERLIPIDEMIA NEC/NOS 02/01/2017 ABHIJEET WEBSTER GEORGETTE K Ot 401.9 HYPERTENSION NOS 02/01/2017 ABHIJEET WEBSTER GEORGETTE Haider Ot 414.00 CORON ATHEROSCLER NOS TYPE VESSEL, NATIV 02/01/2017 ABHIJEET WEBSTER GEORGETTE Haider Ot V12.54 PERSONAL HX OF TIA, CEREBRAL INFARCTION 02/01/2017 ABHIJEET WEBSTER GEORGETTE K Ot 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 02/01/2017 Ot 272.4 HYPE RLIPIDEMIA NEC/NOS 02/01/2017 Ot 401.9 HYPE RTENSION NOS 02/01/2017 Ot 414.00 COR ON ATHEROSCLER NOS TYPE VESSEL, NATIV 02/01/2017 Ot 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 W O CEREBRAL IN 02/01/2017 AUGUSTINE JACKSON DO Ot 715.36 LOC OSTEOARTH NOS-L/LEG 02/01/2017 AUGUSTINE JACKSON DO Ot V72.63 PRE-PROCEDURAL LABORATORY EXAMINATION 02/01/2017 AUGUSTINE JACKSON DO Ot V72.81 [id number] CARDIOVASCULAR 02/01/2017 AUGUSTINE JACKSON DO Ot V72.83 EXAM PRE-OPERATIVE NEC 02/01/2017 AUGUSTINE JACKSON DO Ot V74.8 SCREEN-BACTERIAL DIS NEC 02/01/2017 IGGY DERAS, YOU Victor Ot 709.9 SKIN DISORDER NOS 02/01/2017 IGGY DERAS, YOU Victor Ot V72.84 EXAM PRE-OPERATIVE NOS 02/01/2017 IGGY DERAS, YOU Victor Ot V74.8 SCREEN-BACTERIAL DIS NEC 02/01/2017 MARNI HIGGINBOTHAM MD Ot E78. 2 MIXED HYPERLIPIDEMIA 02/01/2017 MARNI HIGGINBOTHAM MD Ot I10 ESSENTIAL (PRIMARY) HYPERTENSION 02/01/2017 MARNI HIGGINBOTHAM MD Ot I25. 10 ATHSCL HEART DISEASE OF [place] CORONARY 02/01/2017 MARNI HIGGINBOTHAM MD Ot R07. 9 CHEST PAIN, UNSPECIFIED 02/01/2017 MARNI HIGGINBOTHAM MD Ot Z79. 01 [employer] (CURRENT) USE OF ANTICOAGULANT 02/01/2017 MARNI HIGGINBOTHAM MD Ot I77.810 THORACIC AORTIC ECTASIA 02/01/2017 MARNI HIGGINBOTHAM MD Ot K44. 9 DIAPHRAGMATIC HERNIA WITHOUT OBSTRUCTION 02/01/2017 REGAN GOMEZ ROLL OR TAPE EDGE MACHINE OPERATOR Ot N28.1 CYST OF KIDNEY, ACQUIRED 02/01/2017 ALANNAH SOLOMON M WINERY CELLAR HAND Ot N28.1 CYST OF KIDNEY, ACQUIRED 02/02/2017 MARNI HIGGINBOTHAM MD Ot E78. 2 MIXED HYPERLIPIDEMIA 02/02/2017 MARNI HIGGINBOTHAM MD Ot I10 ESSENTIAL (PRIMARY) HYPERTENSION 02/02/2017 MARNI HIGGINBOTHAM MD Ot I25. 10 ATHSCL HEART DISEASE OF [place] CORONARY 02/02/2017 MARNI HIGGINBOTHAM MD Ot I63. 9 CEREBRAL INFARCTION, UNSPECIFIED 02/02/2017 MARNI HIGGINBOTHAM MD Ot R06. 02 SHORTNESS OF BREATH 02/02/2017 MARNI HIGGINBOTHAM MD Ot R07. 9 CHEST PAIN, UNSPECIFIED 03/09/2017 MARNI HIGGINBOTHAM MD Ot E78. 2 MIXED HYPERLIPIDEMIA 03/09/2017 MARNI HIGGINBOTHAM MD Ot I10 ESSENTIAL (PRIMARY) HYPERTENSION 03/09/2017 MARNI HIGGINBOTHAM MD Ot I25. 10 ATHSCL HEART DISEASE OF [place] CORONARY 03/09/2017 MARNI HIGGINBOTHAM MD Ot I63. 9 CEREBRAL INFARCTION, UNSPECIFIED 03/09/2017 MARNI HIGGINBOTHAM MD Ot R06. 02 SHORTNESS OF BREATH 03/09/2017 MARNI HIGGINBOTHAM MD Ot R07. 9 CHEST PAIN, UNSPECIFIED 03/20/2017 MARNI HIGGINBOTHAM MD Ot E78. 2 MIXED HYPERLIPIDEMIA 03/20/2017 MARNI HIGGINBOTHAM MD Ot I10 ESSENTIAL (PRIMARY) HYPERTENSION 03/20/2017 MARNI HIGGINBOTHAM MD Ot I25. 10 ATHSCL HEART DISEASE OF [place] CORONARY 03/20/2017 MARNI HIGGINBOTHAM MD Ot I63. 9 CEREBRAL INFARCTION, UNSPECIFIED 03/20/2017 MARNI HIGGINBOTHAM MD Ot R06. 02 SHORTNESS OF BREATH 03/20/2017 NEFTALY MD, BASHAR J Ot R07. 9 CHEST PAIN, UNSPECIFIED 08/08/2017 ASCENCION DERAS, TORO Snyder Ot N20.0 CALCULUS OF KIDNEY 08/29/2017 ASCENCION DERAS, TORO Snyder Ot N20.0 CALCULUS OF KIDNEY 09/06/2017 ASCENCION DERAS, TORO Snyder Ot N20.0 CALCULUS OF KIDNEY 03/30/2018 GEORGETTE LANGFORD Ot 272.4 HYPERLIPIDEMIA NEC/NOS 03/30/2018 GEORGETTE LANGFORD Ot 397.0 TRICUSPID VALVE DISEASE 03/30/2018 GEORGETTE LANGFORD Ot 401.9 HYPERTENSION NOS 03/30/2018 GEORGETTE LANGFORD Ot 414.01 CORONARY ATHEROSCLEROSIS OF [place] CORON 03/30/2018 GEORGETTE LANGFORD Ot 424.0 MITRAL VALVE DISORDER 03/30/2018 GEORGETTE LANGFORD Ot V12.54 PERSONAL HX OF TIA, CEREBRAL INFARCTION 03/30/2018 GEORGETTE LANGFORD Ot 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 03/30/2018 GEORGETTE LANGFORD Ot 272.4 HYPERLIPIDEMIA NEC/NOS 03/30/2018 GEORGETTE LANGFORD Ot 401.9 HYPERTENSION NOS 03/30/2018 GEORGETTE LANGFORD Ot 414.00 CORON ATHEROSCLER NOS TYPE VESSEL, NATIV 03/30/2018 GEORGETTE LANGFORD Ot V12.54 PERSONAL HX OF TIA, CEREBRAL INFARCTION 03/30/2018 GEORGETTE LANGFORD Ot 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 03/30/2018 Ot 272.4 HYPE RLIPIDEMIA NEC/NOS 03/30/2018 Ot 401.9 HYPE RTENSION NOS 03/30/2018 Ot 414.00 COR ON ATHEROSCLER NOS TYPE VESSEL, NATIV 03/30/2018 Ot 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 W O CEREBRAL IN 03/30/2018 AUGUSTINE JACKSON DO Ot 715.36 LOC OSTEOARTH NOS-L/LEG 03/30/2018 AUGUSTINE JACKSON DO Ot V72.63 PRE-PROCEDURAL LABORATORY EXAMINATION 03/30/2018 AUGUSTINE JACKSON DO, Ot V72.81 [id number] CARDIOVASCULAR 03/30/2018 AUGUSTINE JACKSON DO, Ot V72.83 EXAM PRE-OPERATIVE NEC 03/30/2018 RENETTA LOPEZ AUGUSTINE Scott Ot V74.8 SCREEN-BACTERIAL DIS NEC 03/30/2018 IGGY DERAS, YOU Victor Ot 709.9 SKIN DISORDER NOS 03/30/2018 IGGY DERAS, YOU Victor Ot V72.84 EXAM PRE-OPERATIVE NOS 03/30/2018 IGGY DERAS, YOU Victor Ot V74.8 SCREEN-BACTERIAL DIS NEC 03/30/2018 MARNI HIGGINBOTHAM MD Ot E78. 2 MIXED HYPERLIPIDEMIA 03/30/2018 MARNI HIGGINBOTHAM MD Ot I10 ESSENTIAL (PRIMARY) HYPERTENSION 03/30/2018 MARNI HIGGINBOTHAM MD Ot I25. 10 ATHSCL HEART DISEASE OF [place] CORONARY 03/30/2018 MARNI HIGGINBOTHAM MD Ot R07. 9 CHEST PAIN, UNSPECIFIED 03/30/2018 MARNI HIGGINBOTHAM MD Ot Z79. 01 [facility] (CURRENT) USE OF ANTICOAGULANT 03/30/2018 MARNI HIGGINBOTHAM MD Ot I77.810 THORACIC AORTIC ECTASIA 03/30/2018 MARNI HIGGINBOTHAM MD Ot K44. 9 DIAPHRAGMATIC HERNIA WITHOUT OBSTRUCTION 03/30/2018 REGAN GOMEZ ROLL OR TAPE EDGE MACHINE OPERATOR Ot N28.1 CYST OF KIDNEY, ACQUIRED 03/30/2018 SOLOMON JAFFE Ot N28.1 CYST OF KIDNEY, ACQUIRED 03/30/2018 MARNI HIGGINBOTHAM MD Ot E78. 2 MIXED HYPERLIPIDEMIA 03/30/2018 MARNI HIGGINBOTHAM MD Ot I10 ESSENTIAL (PRIMARY) HYPERTENSION 03/30/2018 MARNI HIGGINBOTHAM MD Ot I25. 10 ATHSCL HEART DISEASE OF [place] CORONARY 03/30/2018 MARNI HIGGINBOTHAM MD Ot I63. 9 CEREBRAL INFARCTION, UNSPECIFIED 03/30/2018 MARNI HIGGINBOTHAM MD Ot R06. 02 SHORTNESS OF BREATH 03/30/2018 MARNI HIGGINBOTHAM MD Ot R07. 9 CHEST PAIN, UNSPECIFIED 03/30/2018 ASCENCION DERAS, TORO Snyder Ot N20.0 CALCULUS OF KIDNEY 04/02/2018 MARNI HIGGINBOTHAM MD Ot E78. 2 MIXED HYPERLIPIDEMIA 04/02/2018 MARNI HIGGINBOTHAM MD Ot I10 ESSENTIAL (PRIMARY) HYPERTENSION 04/02/2018 MARNI HIGGINBOTHAM MD Ot I25. 10 ATHSCL HEART DISEASE OF [place] CORONARY 04/02/2018 MARNI HIGGINBOTHAM MD Ot I63. 9 CEREBRAL INFARCTION, UNSPECIFIED 04/02/2018 MARNI HIGGINBOTHAM MD Ot I65. 29 OCCLUSION AND STENOSIS OF UNSPECIFIED CA 04/02/2018 MARNI HIGGINBOTHAM MD Ot R07. 9 CHEST PAIN, UNSPECIFIED 04/02/2018 MARNI HIGGINBOTHAM MD Ot Z95. 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 04/04/2018 GEORGETTE LANGFORD Ot 272.4 HYPERLIPIDEMIA NEC/NOS 04/04/2018 GEORGETTE LANGFORD Ot 401.9 HYPERTENSION NOS 04/04/2018 GEORGETTE LANGFORD Ot 414.00 CORON ATHEROSCLER NOS TYPE VESSEL, NATIV 04/04/2018 GEORGETTE LANGFORD Ot V12.54 PERSONAL HX OF TIA, CEREBRAL INFARCTION 04/04/2018 GEORGETTE LANGFORD Ot 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 04/04/2018 Ot 272.4 HYPE RLIPIDEMIA NEC/NOS 04/04/2018 Ot 401.9 HYPE RTENSION NOS 04/04/2018 Ot 414.00 COR ON ATHEROSCLER NOS TYPE VESSEL, NATIV 04/04/2018 Ot 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 W O CEREBRAL IN 04/04/2018 AUGUSTINE JACKSON DO Ot 715.36 LOC OSTEOARTH NOS-L/LEG 04/04/2018 AUGUSTINE JACKSON DO Ot V72.63 PRE-PROCEDURAL LABORATORY EXAMINATION 04/04/2018 AUGUSTINE JACKSON DO Ot V72.81 [id number] CARDIOVASCULAR 04/04/2018 AUGUSTINE JACKSON DO Ot V72.83 EXAM PRE-OPERATIVE NEC 04/04/2018 AUGUSTINE JACKSON DO Ot V74.8 SCREEN-BACTERIAL DIS NEC 04/04/2018 IGGY DERAS, YOU Victor Ot 709.9 SKIN DISORDER NOS 04/04/2018 IGGY DERAS, YOU Victor Ot V72.84 EXAM PRE-OPERATIVE NOS 04/04/2018 IGGY DERAS, YOU Victor Ot V74.8 SCREEN-BACTERIAL DIS NEC 04/04/2018 MARNI HIGGINBOTHAM MD Ot E78. 2 MIXED HYPERLIPIDEMIA 04/04/2018 MARNI HIGGINBOTHAM MD Ot I10 ESSENTIAL (PRIMARY) HYPERTENSION 04/04/2018 MARNI HIGGINBOTHAM MD Ot I25. 10 ATHSCL HEART DISEASE OF [place] CORONARY 04/04/2018 MARNI HIGGINBOTHAM MD Ot R07. 9 CHEST PAIN, UNSPECIFIED 04/04/2018 MARNI HIGGINBOTHAM MD Ot Z79. 01 [facility] (CURRENT) USE OF ANTICOAGULANT 04/04/2018 MARNI HIGGINBOTHAM MD Ot I77.810 THORACIC AORTIC ECTASIA 04/04/2018 MARNI HIGGINBOTHAM MD Ot K44. 9 DIAPHRAGMATIC HERNIA WITHOUT OBSTRUCTION 04/04/2018 REGAN GOMEZ ROLL OR TAPE EDGE MACHINE OPERATOR Ot N28.1 CYST OF KIDNEY, ACQUIRED 04/04/2018 SOLOMON JAFFE Ot N28.1 CYST OF KIDNEY, ACQUIRED 04/04/2018 MARNI HIGGINBOTHAM MD Ot E78. 2 MIXED HYPERLIPIDEMIA 04/04/2018 MARNI HIGGINBOTHAM MD Ot I10 ESSENTIAL (PRIMARY) HYPERTENSION 04/04/2018 MARNI HIGGINBOTHAM MD Ot I25. 10 ATHSCL HEART DISEASE OF [place] CORONARY 04/04/2018 MARNI HIGGINBOTHAM MD Ot I63. 9 CEREBRAL INFARCTION, UNSPECIFIED 04/04/2018 MARNI HIGGINBOTHAM MD Ot R06. 02 SHORTNESS OF BREATH 04/04/2018 MARNI HIGGINBOTHAM MD Ot R07. 9 CHEST PAIN, UNSPECIFIED 04/04/2018 ASCENCION DERAS, TORO Snyder Ot N20.0 CALCULUS OF KIDNEY 04/04/2018 MARNI HIGGINBOTHAM MD Ot E78. 2 MIXED HYPERLIPIDEMIA 04/04/2018 MARNI HIGGINBOTHAM MD Ot I10 ESSENTIAL (PRIMARY) HYPERTENSION 04/04/2018 MARNI HIGGINBOTHAM MD Ot I25. 10 ATHSCL HEART DISEASE OF [place] CORONARY 04/04/2018 MARNI HIGGINBOTHAM MD Ot I63. 9 CEREBRAL INFARCTION, UNSPECIFIED 04/04/2018 MARNI HIGGINBOTHAM MD Ot I65. 29 OCCLUSION AND STENOSIS OF UNSPECIFIED CA 04/04/2018 MARNI HIGGINBOTHAM MD Ot R07. 9 CHEST PAIN, UNSPECIFIED 04/04/2018 MARNI HIGGINBOTHAM MD Ot Z95. 2 PRESENCE OF PROSTHETIC HEART VALVE 04/20/2018 MARNI HIGGINBOTHAM MD Ot E78. 2 MIXED HYPERLIPIDEMIA 04/20/2018 MARNI HIGGINBOTHAM MD Ot I10 ESSENTIAL (PRIMARY) HYPERTENSION 04/20/2018 MARNI HIGGINBOTHAM MD Ot I25. 10 ATHSCL HEART DISEASE OF [place] CORONARY 04/20/2018 MARNI HIGGINBOTHAM MD Ot I63. 9 CEREBRAL INFARCTION, UNSPECIFIED 04/20/2018 MARNI HIGGINBOTHAM MD Ot I65. 29 OCCLUSION AND STENOSIS OF UNSPECIFIED CA 04/20/2018 MARNI HIGGINBOTHAM MD Ot R07. 9 CHEST PAIN, UNSPECIFIED 04/20/2018 MARNI HIGGINBOTHAM MD Ot Z95. 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 W O CEREBRAL IN 08/29/2018 AUGUSTINE JACKSON DO Ot 715.36 LOC OSTEOARTH NOS-L/LEG 08/29/2018 AUGUSTINE JACKSON DO Ot V72.63 PRE-PROCEDURAL LABORATORY EXAMINATION 08/29/2018 AUGUSTINE JACKSON DO Ot V72.81 [id number] CARDIOVASCULAR 08/29/2018 AUGUSTINE JACKSON DO Ot V72.83 EXAM PRE-OPERATIVE NEC 08/29/2018 AUGUSTINE JACKSON DO Ot V74.8 SCREEN-BACTERIAL DIS NEC 08/29/2018 IGGY DERAS, YOU Victor Ot 709.9 SKIN DISORDER NOS 08/29/2018 IGGY DERAS, YOU Victor Ot V72.84 EXAM PRE-OPERATIVE NOS 08/29/2018 IGGY DERAS, YOU Victor Ot V74.8 SCREEN-BACTERIAL DIS NEC 08/29/2018 MARNI HIGGINBOTHAM MD Ot E78. 2 MIXED HYPERLIPIDEMIA 08/29/2018 MARNI HIGGINBOTHAM MD Ot I10 ESSENTIAL (PRIMARY) HYPERTENSION 08/29/2018 MARNI HIGGINBOTHAM MD Ot I25. 10 ATHSCL HEART DISEASE OF [place] CORONARY 08/29/2018 MARNI HIGGINBOTHAM MD Ot R07. 9 CHEST PAIN, UNSPECIFIED 08/29/2018 MARNI HIGGINBOTHAM MD Ot Z79. 01 [facility] (CURRENT) USE OF ANTICOAGULANT 08/29/2018 MARNI HIGGINBOTHAM MD Ot I77.810 THORACIC AORTIC ECTASIA 08/29/2018 MARNI HIGGINBOTHAM MD Ot K44. 9 DIAPHRAGMATIC HERNIA WITHOUT OBSTRUCTION 08/29/2018 REGAN GOMEZ ROLL OR TAPE EDGE MACHINE OPERATOR Ot N28.1 CYST OF KIDNEY, ACQUIRED 08/29/2018 SOLOMON JAFFE WINERY CELLAR HAND Ot N28.1 CYST OF KIDNEY, ACQUIRED 08/29/2018 MARNI HIGGINBOTHAM MD Ot E78. 2 MIXED HYPERLIPIDEMIA 08/29/2018 MARNI HIGGINBOTHAM MD Ot I10 ESSENTIAL (PRIMARY) HYPERTENSION 08/29/2018 MARNI HIGGINBOTHAM MD Ot I25. 10 ATHSCL HEART DISEASE OF [place] CORONARY 08/29/2018 MARNI HIGGINBOTHAM MD Ot I63. 9 CEREBRAL INFARCTION, UNSPECIFIED 08/29/2018 MARNI HIGGINBOTHAM MD Ot R06. 02 SHORTNESS OF BREATH 08/29/2018 MARNI HIGGINBOTHAM MD Ot R07. 9 CHEST PAIN, UNSPECIFIED 08/29/2018 TORO VEGAS MD Ot N20.0 CALCULUS OF KIDNEY 08/29/2018 MARNI HIGGINBOTHAM MD Ot E78. 2 MIXED HYPERLIPIDEMIA 08/29/2018 MARIN HIGGINBOTHAM MD Ot I10 ESSENTIAL (PRIMARY) HYPERTENSION 08/29/2018 MARNI HIGGINBOTHAM MD Ot I25. 10 ATHSCL HEART DISEASE OF [place] CORONARY 08/29/2018 MARNI HIGGINBOTHAM MD Ot I63. 9 CEREBRAL INFARCTION, UNSPECIFIED 08/29/2018 MARNI HIGGINBOTHAM MD Ot I65. 29 OCCLUSION AND STENOSIS OF UNSPECIFIED CA 08/29/2018 MARNI HIGGINOBTHAM MD Ot R07. 9 CHEST PAIN, UNSPECIFIED 08/29/2018 NEFTALY DERAS, MARNI Goodman Ot Z95. 2 PRESENCE OF PROSTHETIC HEART VALVE 08/29/2018 ASCENCION DERAS, TORO Snyder Ot E87.5 HYPERKALEMIA 08/29/2018 ASCENCION DERAS, TORO Snyder Ot N17.9 ACUTE KIDNEY FAILURE, UNSPECIFIED 08/31/2018 ASCENCION DERAS, TORO Snyder Ot E87.5 HYPERKALEMIA 08/31/2018 ASCENCION DERAS, TORO Snyder Ot N17.9 ACUTE KIDNEY FAILURE, UNSPECIFIED 12/08/2018 HAMIDA HOLLIS MD Ot F03. 90 UNSPECIFIED DEMENTIA WITHOUT BEHAVIORAL 12/08/2018 HAMIDA HOLLIS MD Ot I10 ESSENTIAL (PRIMARY) HYPERTENSION 12/08/2018 HAMIDA HOLLIS MD Ot K21. 9 GASTRO-ESOPHAGEAL REFLUX DISEASE WITHOUT 12/08/2018 HAMIDA HOLLIS MD Ot R40.2142 COMA SCALE, EYES OPEN, SPONTANEOUS, EMR 12/08/2018 HAMIDA HOLLIS MD Ot R40.2252 COMA SCALE, BEST VERBAL RESPONSE, ORIENT 12/08/2018 HAMIDA HOLLIS MD Ot R40.2362 COMA SCALE, BEST MOTOR RESPONSE, OBEYS C 12/08/2018 HAMIDA HOLLIS MD Ot S50.312A ABRASION OF LEFT ELBOW, INITIAL ENCOUNTE 12/08/2018 HAMIDA HOLLIS MD Ot S51.812A LACERATION WITHOUT FOREIGN BODY OF LEFT 12/08/2018 HAMIDA HOLLIS MD Ot S59.912A UNSPECIFIED INJURY OF LEFT FOREARM, INIT 12/08/2018 HAMIDA HOLLIS MD Ot W18.30XA FALL ON SAME LEVEL, UNSPECIFIED, INITIAL 12/08/2018 HAMIDA HOLLIS MD Ot Y93. E1 ACTIVITY, PERSONAL BATHING AND SHOWERING 12/08/2018 HAMIDA HOLLIS MD Ot Z79. 01 [facility] (CURRENT) USE OF ANTICOAGULANT 12/08/2018 HAMIDA HOLLIS MD Ot Z79. 82 [facility] (CURRENT) USE OF ASPIRIN 12/08/2018 HAMIDA HOLLIS MD Ot Z80. 0 FAMILY HISTORY OF MALIGNANT NEOPLASM OF 12/08/2018 HAMIDA HOLLIS MD Ot Z82. 49 FAMILY HX OF ISCHEM HEART DIS AND OTH DI 12/08/2018 HAMIDA HOLLIS MD, Ot Z87.820 PERSONAL HISTORY OF TRAUMATIC BRAIN INJU 12/08/2018 HAMIDA HOLLIS MD, Ot Z90. 49 ACQUIRED ABSENCE OF OTHER SPECIFIED PART 12/08/2018 HAMIDA HOLLIS MD, Ot Z95. 2 PRESENCE OF PROSTHETIC HEART VALVE 12/11/2018 HAMIDA HOLLIS MD, Ot F03. 90 UNSPECIFIED DEMENTIA WITHOUT BEHAVIORAL 12/11/2018 HAMIDA HOLLIS MD Ot I10 ESSENTIAL (PRIMARY) HYPERTENSION 12/11/2018 HAMIDA HOLLIS MD Ot K21. 9 GASTRO-ESOPHAGEAL REFLUX DISEASE WITHOUT 12/11/2018 HAMIDA HOLLIS MD, Ot R40.2142 COMA SCALE, EYES OPEN, SPONTANEOUS, EMR 12/11/2018 HAMIDA HOLLIS MD, Ot R40.2252 COMA SCALE, BEST VERBAL RESPONSE, ORIENT 12/11/2018 HAMIDA HOLLIS MD, Ot R40.2362 COMA SCALE, BEST MOTOR RESPONSE, OBEYS C 12/11/2018 HAMIDA HOLLIS MD, Ot S50.312A ABRASION OF LEFT ELBOW, INITIAL ENCOUNTE 12/11/2018 HAMIDA HOLLIS MD Ot S51.812A LACERATION WITHOUT FOREIGN BODY OF LEFT 12/11/2018 HAMIDA HOLLIS MD, Ot S59.912A UNSPECIFIED INJURY OF LEFT FOREARM, INIT 12/11/2018 HAMIDA HOLLIS MD Ot W18.30XA FALL ON SAME LEVEL, UNSPECIFIED, INITIAL 12/11/2018 HAMIDA HOLLIS MD Ot Y93. E1 ACTIVITY, PERSONAL BATHING AND SHOWERING 12/11/2018 HAMIDA HOLLIS MD, Ot Z79. 01 [employer] (CURRENT) USE OF ANTICOAGULANT 12/11/2018 HAMIDA HOLLIS MD Ot Z79. 82 [facility] (CURRENT) USE OF ASPIRIN 12/11/2018 HAMIDA HOLLIS MD Ot Z80. 0 FAMILY HISTORY OF MALIGNANT NEOPLASM OF 12/11/2018 HAMIDA HOLLIS MD, Ot Z82. 49 FAMILY HX OF ISCHEM HEART DIS AND OTH DI 12/11/2018 HAMIDA HOLLIS MD, Ot Z87.820 PERSONAL HISTORY OF TRAUMATIC BRAIN INJU 12/11/2018 HAMIDA HOLLIS MD, Ot Z90. 49 ACQUIRED ABSENCE OF OTHER SPECIFIED PART 12/11/2018 HAMIDA HOLLIS MD, Ot Z95. 2 PRESENCE OF PROSTHETIC HEART VALVE 05/20/2019 HAMIDA HOLLIS MD, Ot F03. 90 UNSPECIFIED DEMENTIA WITHOUT BEHAVIORAL 05/20/2019 HAMIDA HOLLIS MD, Ot I10 ESSENTIAL (PRIMARY) HYPERTENSION 05/20/2019 HAMIDA HOLLIS MD, Ot K21. 9 GASTRO-ESOPHAGEAL REFLUX DISEASE WITHOUT 05/20/2019 HAMIDA HOLLIS MD, Ot R40.2142 COMA SCALE, EYES OPEN, SPONTANEOUS, EMR 05/20/2019 HAMIDA HOLLIS MD, Ot R40.2252 COMA SCALE, BEST VERBAL RESPONSE, ORIENT 05/20/2019 HAMIDA HOLLIS MD, Ot R40.2362 COMA SCALE, BEST MOTOR RESPONSE, OBEYS C 05/20/2019 HAMIDA HOLLIS MD, Ot S50.312A ABRASION OF LEFT ELBOW, INITIAL ENCOUNTE 05/20/2019 HAMIDA HOLLIS MD, Ot S51.812A LACERATION WITHOUT FOREIGN BODY OF LEFT 05/20/2019 HAMIDA HOLLIS MD, Ot S59.912A UNSPECIFIED INJURY OF LEFT FOREARM, INIT 05/20/2019 HAMIDA HOLLIS MD, Ot W18.30XA FALL ON SAME LEVEL, UNSPECIFIED, INITIAL 05/20/2019 HAMIDA HOLLIS MD, Ot Y93. E1 ACTIVITY, PERSONAL BATHING AND SHOWERING 05/20/2019 HAMIDA HOLLIS MD, Ot Z79. 01 [facility] (CURRENT) USE OF ANTICOAGULANT 05/20/2019 HAMIDA HOLLIS MD, Ot Z79. 82 [facility] (CURRENT) USE OF ASPIRIN 05/20/2019 HAMIDA HOLLIS MD, Ot Z80. 0 FAMILY HISTORY OF MALIGNANT NEOPLASM OF 05/20/2019 HAMIDA HOLLIS MD, Ot Z82. 49 FAMILY HX OF ISCHEM HEART DIS AND OTH DI 05/20/2019 HAMIDA HOLLIS MD, Ot Z87.820 PERSONAL HISTORY OF TRAUMATIC BRAIN INJU 05/20/2019 HAMIDA HOLLIS MD, Ot Z90. 49 ACQUIRED ABSENCE OF OTHER SPECIFIED PART 05/20/2019 HAMIDA HOLILS MD, Ot Z95. 2 PRESENCE OF PROSTHETIC HEART VALVE 06/20/2019 Ot 272.4 HYPE RLIPIDEMIA NEC/NOS 06/20/2019 Ot 401.9 HYPE RTENSION NOS 06/20/2019 Ot 414.00 COR ON ATHEROSCLER NOS TYPE VESSEL, NATIV 06/20/2019 Ot 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 W O CEREBRAL IN 06/20/2019 RENETTA LOPEZ, AUGUSTINE Scott Ot 715.36 LOC OSTEOARTH NOS-L/LEG 06/20/2019 RENETTA LOPEZ, AUGUSTINE Scott Ot V72.63 PRE-PROCEDURAL LABORATORY EXAMINATION 06/20/2019 AUGUSTINE JACKSON DO Ot V72.81 [id number] CARDIOVASCULAR 06/20/2019 RENETTA LOPEZ, AUGUSTINE Scott Ot V72.83 EXAM PRE-OPERATIVE NEC 06/20/2019 RENETTA LOPEZ, AUGUSTINE Scott Ot V74.8 SCREEN-BACTERIAL DIS NEC 06/20/2019 IGGY DERAS, YOU Victor Ot 709.9 SKIN DISORDER NOS 06/20/2019 IGGY DERAS, YOU Victor Ot V72.84 EXAM PRE-OPERATIVE NOS 06/20/2019 IGGY DERAS, YOU Victor Ot V74.8 SCREEN-BACTERIAL DIS NEC 06/20/2019 MARNI HIGGINBOTHAM MD Ot E78. 2 MIXED HYPERLIPIDEMIA 06/20/2019 MARNI HIGGINBOTHAM MD Ot I10 ESSENTIAL (PRIMARY) HYPERTENSION 06/20/2019 MARNI HIGGINBOTHAM MD Ot I25. 10 ATHSCL HEART DISEASE OF [place] CORONARY 06/20/2019 MARNI HIGGINBOTHAM MD Ot R07. 9 CHEST PAIN, UNSPECIFIED 06/20/2019 MARNI HIGGINBOTHAM MD Ot Z79. 01 [facility] (CURRENT) USE OF ANTICOAGULANT 06/20/2019 MARNI HIGGINBOTHAM MD Ot I77.810 THORACIC AORTIC ECTASIA 06/20/2019 MARNI HIGGINBOTHAM MD Ot K44. 9 DIAPHRAGMATIC HERNIA WITHOUT OBSTRUCTION 06/20/2019 REGAN GOMEZ ROLL OR TAPE EDGE MACHINE OPERATOR Ot N28.1 CYST OF KIDNEY, ACQUIRED 06/20/2019 SOLOMON JAFFE Ot N28.1 CYST OF KIDNEY, ACQUIRED 06/20/2019 MARNI HIGGINBOTHAM MD Ot E78. 2 MIXED HYPERLIPIDEMIA 06/20/2019 MARNI HIGGINBOTHAM MD Ot I10 ESSENTIAL (PRIMARY) HYPERTENSION 06/20/2019 MARNI HIGGINBOTHAM MD Ot I25. 10 ATHSCL HEART DISEASE OF [place] CORONARY 06/20/2019 MARNI HIGGINBOTHAM MD Ot I63. 9 CEREBRAL INFARCTION, UNSPECIFIED 06/20/2019 MARNI HIGGINBOTHAM MD Ot R06. 02 SHORTNESS OF BREATH 06/20/2019 NEFTALY DERAS, MARNI Goodman Ot R07. 9 CHEST PAIN, UNSPECIFIED 06/20/2019 TORO VEGAS MD Ot N20.0 CALCULUS OF KIDNEY 06/20/2019 NEFTALY DERAS, MARNI Goodman Ot E78. 2 MIXED HYPERLIPIDEMIA 06/20/2019 NEFTALY DERAS, MARNI Goomdan Ot I10 ESSENTIAL (PRIMARY) HYPERTENSION 06/20/2019 NEFTALY DERAS, MARNI Goodman Ot I25. 10 ATHSCL HEART DISEASE OF [place] CORONARY 06/20/2019 NEFTALY DERAS, MARNI Goodman Ot I63. 9 CEREBRAL INFARCTION, UNSPECIFIED 06/20/2019 NEFTALY DERAS, MARNI Goodman Ot I65. 29 OCCLUSION AND STENOSIS OF UNSPECIFIED CA 06/20/2019 MARNI HIGGINBOTHAM MD Ot R07. 9 CHEST PAIN, UNSPECIFIED 06/20/2019 NEFTALY DERAS, MARNI Goodman Ot Z95. 2 PRESENCE OF PROSTHETIC HEART VALVE 06/26/2019 TORO VEGAS MD Ot M16.11 UNILATERAL PRIMARY OSTEOARTHRITIS, RIGHT 06/26/2019 TORO VEGAS MD Ot S70.01XA CONTUSION OF RIGHT HIP, INITIAL ENCOUNTE 06/26/2019 TORO VEGAS MD Ot W19.XXXA UNSPECIFIED FALL, INITIAL ENCOUNTER 06/26/2019 TORO VEGAS MD Ot M16.11 UNILATERAL PRIMARY OSTEOARTHRITIS, RIGHT 06/26/2019 TORO VEGAS MD Ot S70.01XA CONTUSION OF RIGHT HIP, INITIAL ENCOUNTE 06/26/2019 TORO VEGAS MD Ot W19.XXXA UNSPECIFIED FALL, INITIAL ENCOUNTER 07/06/2019 TORO VEGAS MD Ot D6 2 ACUTE POSTHEMORRHAGIC ANEMIA 07/06/2019 TORO VEGAS MD Ot F03.90 UNSPECIFIED DEMENTIA WITHOUT BEHAVIORAL 07/06/2019 TORO VEGAS MD Ot H91.93 UNSPECIFIED HEARING LOSS, BILATERAL 07/06/2019 TORO VEGAS MD Ot I1 0 ESSENTIAL (PRIMARY) HYPERTENSION 07/06/2019 TORO VEGAS MD Ot K21.9 GASTRO-ESOPHAGEAL REFLUX DISEASE WITHOUT 07/06/2019 TORO VEGAS MD Ot M19.91 PRIMARY OSTEOARTHRITIS, UNSPECIFIED SITE 07/06/2019 TORO VEGAS MD Ot R41.0 DISORIENTATION, UNSPECIFIED 07/06/2019 TORO VEGAS MD Ot R79.1 ABNORMAL COAGULATION PROFILE 07/06/2019 TORO VEGAS MD Ot S30.0XXA CONTUSION OF LOWER BACK AND PELVIS, INIT 07/06/2019 TORO VEGAS MD Ot W19.XXXA UNSPECIFIED FALL, INITIAL ENCOUNTER 07/06/2019 TORO VEGAS MD Ot Y92.[address] IN OTH NON-INSTITUTIONAL RESI 07/06/2019 TORO VEGAS MD Ot Z6 6 DO NOT RESUSCITATE 07/06/2019 TORO VEGAS MD Ot Z85.828 PERSONAL HISTORY OF OTHER MALIGNANT NEOP 07/06/2019 ASCENCION DERAS, TORO Snyder Ot Z87.820 PERSONAL HISTORY OF TRAUMATIC BRAIN INJU 07/06/2019 TORO VEGAS MD Ot Z95.2 PRESENCE OF PROSTHETIC HEART VALVE 07/06/2019 TORO VEGAS MD Ot 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 07/07/2019 TORO VEGAS MD Ot D6 2 ACUTE POSTHEMORRHAGIC ANEMIA 07/07/2019 TORO VEGAS MD Ot F03.90 UNSPECIFIED DEMENTIA WITHOUT BEHAVIORAL 07/07/2019 TORO VEGAS MD Ot H91.93 UNSPECIFIED HEARING LOSS, BILATERAL 07/07/2019 TORO VEGAS MD Ot I1 0 ESSENTIAL (PRIMARY) HYPERTENSION 07/07/2019 TORO VEGAS MD Ot K21.9 GASTRO-ESOPHAGEAL REFLUX DISEASE WITHOUT 07/07/2019 TORO VEGAS MD Ot M19.91 PRIMARY OSTEOARTHRITIS, UNSPECIFIED SITE 07/07/2019 TORO VEGAS MD Ot R41.0 DISORIENTATION, UNSPECIFIED 07/07/2019 TORO VEGAS MD Ot R79.1 ABNORMAL COAGULATION PROFILE 07/07/2019 TORO VEGAS MD Ot S30.0XXA CONTUSION OF LOWER BACK AND PELVIS, INIT 07/07/2019 TORO VEGAS MD Ot W19.XXXA UNSPECIFIED FALL, INITIAL ENCOUNTER 07/07/2019 TORO VEGAS MD Ot Y92.[address] IN OT NON-INSTITUTIONAL RESI 07/07/2019 TORO VEGAS MD Ot Z6 6 DO NOT RESUSCITATE 07/07/2019 TORO VEGAS MD Ot Z85.828 PERSONAL HISTORY OF OTHER MALIGNANT NEOP 07/07/2019 TORO VEGAS MD Ot Z87.820 PERSONAL HISTORY OF TRAUMATIC BRAIN INJU 07/07/2019 TORO VEGAS MD Ot Z95.2 PRESENCE OF PROSTHETIC HEART VALVE 07/07/2019 TORO VEGAS MD Ot 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 Procedures Code Description Performed By Per formed On 81.54 TOTA L KNEE REPLACEMENT 11/18/2014 Results Test Result Range [id number] - 02/12/16 09:55 Serum or plasma urea nitrogen measurement (mass/volume ) 18 mg/dL 7-18 Serum or plasma creatinine measurement (mass/volume) 0.90 mg/dL 0.60-1.30 Serum or plasma urea nitrogen/creatinine mass ratio 20 NRG Serum or plasma creatinine measurement w ith calculation of estimated glomerular filtration rate > NRG Complete blood count (CBC) with automate d white blood cell (WBC) differential - 11/17/16 13:03 Blood leukocytes automated count (number/volume) 5.7 10*3/uL 4.3-11.0 Blood erythrocytes automated count (number/volume) 3.74 10*6/uL 4.35-5.85 Venous blood hemoglobin measurement (mass/volume) 12.5 g/dL 13.3-17.7 Blood hematocrit (volume fraction) 39 % 40-54 Automated erythrocyte mean corpuscular volume 104 [foz_us] 80-99 Automated erythrocyte mean corpuscular h emoglobin (mass per erythrocyte) 33 pg 25-34 Automated erythrocyte mean corpuscular h emoglobin concentration measurement (mass/volume) 32 g/dL 32-36 Automated erythrocyte distribution width ratio 12. 9 % 10.0- 14.5 Automated blood platelet count (count/volume) 167 10*3/uL 130-400 Automated blood platelet mean volume measurement 10.3 [foz_us] 7.4-10.4 Automated blood neutrophils/100 leukocytes 74 % 42-75 Automated blood lymphocytes/100 leukocytes 17 % 12-44 Blood monocytes/100 leukocytes 9 % 0-12 Automated blood eosinophils/100 leukocytes 1 % 0-10 Automated blood basophils/100 leukocytes 0 % 0-10 Blood neutrophils automated count (number/volume) 4.2 10*3 1.8-7.8 Blood lymphocytes automated count (number/volume) 1.0 10*3 1.0-4.0 Blood monocytes automated count (number/volume) 0. 5 10*3 0.0-1.0 Automated eosinophil count 0.0 10*3/uL 0 .0-0.3 Automated blood basophil count (count/volume) 0.0 10*3/uL 0.0-0.1 PT panel in platelet poor plasma by coag ulation assay - 11/17/16 13:03 Prothrombin time (PT) in platelet poor plasma by coagu lation assay 31.0 s 12.2-14.7 INR in platelet poor plasma or blood by coagulation as say 3.0 0.8-1.4 Activated partial thromboplastin time (a PTT) in platelet poor plasma bycoagulation assay - 11/17/16 13:03 Activated partial thromboplastin time (a PTT) in platelet poor plasma bycoagulation assay 39 s 24-35 Comprehensive metabolic panel - 11/17/16 13:03 Serum or plasma sodium measurement (moles/volume) 142 mmol/L 135-145 Serum or plasma potassium measurement (moles/volume) 4.6 mmol/L 3.6-5.0 Serum or plasma chloride measurement (moles/volume) 114 mmol/L 98-107 Carbon dioxide 21 mmol/L 21-32 Serum or plasma anion gap determination (moles/volume) 7 mmol/L 5-14 Serum or plasma urea nitrogen measurement (mass/volume ) 30 mg/dL 7-18 Serum or plasma creatinine measurement (mass/volume) 1.09 mg/dL 0.60-1.30 Serum or plasma urea nitrogen/creatinine mass ratio 28 NRG Serum or plasma creatinine measurement w ith calculation of estimated glomerular filtration rate > NRG Serum or plasma glucose measurement (mass/volume) 98 mg/dL 70-105 Serum or plasma calcium measurement (mass/volume) 8.7 mg/dL 8.5-10.1 Serum or plasma total bilirubin measurement (mass/volu me) 0.6 mg/dL 0.1-1.0 Serum or plasma alkaline phosphatase sergei surement (enzymatic activity/volume) 43 U/L 40-136 Serum or plasma aspartate aminotransfera se measurement (enzymatic activity/volume) 31 U/L 5-34 Serum or plasma alanine aminotransferase measurement (enzymatic activity/volume) 24 U/L 0-55 Serum or plasma protein measurement (mass/volume) 6.0 g/dL 6.4-8.2 Serum or plasma albumin measurement (mass/volume) 3.8 g/dL 3.2-4.5 Complete blood count (CBC) with automate d white blood cell (WBC) differential - 07/02/19 07:10 Blood leukocytes automated count (number/volume) 14.3 10*3/uL 4.3-11.0 Blood erythrocytes automated count (number/volume) 1.94 10*6/uL 4.35-5.85 Venous blood hemoglobin measurement (mass/volume) 6.7 g/dL 13.3-17.7 Blood hematocrit (volume fraction) 22 % 40-54 Automated erythrocyte mean corpuscular volume 115 [foz_us] 80-99 Automated erythrocyte mean corpuscular h emoglobin (mass per erythrocyte) 35 pg 25-34 Automated erythrocyte mean corpuscular h emoglobin concentration measurement (mass/volume) 30 g/dL 32-36 Automated erythrocyte distribution width ratio 20. 0 % 10.0- 14.5 Automated blood platelet count (count/volume) 367 10*3/uL 130-400 Automated blood platelet mean volume measurement 9.1 [foz_us] 7.4-10.4 Automated blood neutrophils/100 leukocytes 88 % 42-75 Automated blood lymphocytes/100 leukocytes 3 % 12-44 Blood monocytes/100 leukocytes 9 % 0-12 Automated blood eosinophils/100 leukocytes 0 % 0-10 Automated blood basophils/100 leukocytes 0 % 0-10 Blood neutrophils automated count (number/volume) 12.7 10*3 1.8-7.8 Blood lymphocytes automated count (number/volume) 0.5 10*3 1.0-4.0 Blood monocytes automated count (number/volume) 1. 2 10*3 0.0-1.0 Automated eosinophil count 0.0 10*3/uL 0 .0-0.3 Automated blood basophil count (count/volume) 0.0 10*3/uL 0.0-0.1 Comprehensive metabolic panel - 07/02/19 07:10 Serum or plasma sodium measurement (moles/volume) 143 mmol/L 135-145 Serum or plasma potassium measurement (moles/volume) 4.5 mmol/L 3.6-5.0 Serum or plasma chloride measurement (moles/volume) 110 mmol/L 98-107 Carbon dioxide 18 mmol/L 21-32 Serum or plasma anion gap determination (moles/volume) 15 mmol/L 5-14 Serum or plasma urea nitrogen measurement (mass/volume ) 33 mg/dL 7-18 Serum or plasma creatinine measurement (mass/volume) 1.24 mg/dL 0.60-1.30 Serum or plasma urea nitrogen/creatinine mass ratio 27 NRG Serum or plasma creatinine measurement w ith calculation of estimated glomerular filtration rate 55 NRG Serum or plasma glucose measurement (mass/volume) 134 mg/dL 70-105 Serum or plasma calcium measurement (mass/volume) 9.0 mg/dL 8.5-10.1 Serum or plasma total bilirubin measurement (mass/volu me) 2.1 mg/dL 0.1-1.0 Serum or plasma alkaline phosphatase sergei surement (enzymatic activity/volume) 59 U/L 40-136 Serum or plasma aspartate aminotransfera se measurement (enzymatic activity/volume) 57 U/L 5-34 Serum or plasma alanine aminotransferase measurement (enzymatic activity/volume) 42 U/L 0-55 Serum or plasma protein measurement (mass/volume) 6.1 g/dL 6.4-8.2 Serum or plasma albumin measurement (mass/volume) 3.7 g/dL 3.2-4.5 CALCIUM CORRECTED 9.2 mg/dL 8.5-10.1 Magnesium - 07/02/19 07:10 Magnesium 2.0 mg/dL 1.6-2.4 Serum or plasma creatine kinase measurem ent (enzymatic activity/volume) - 07/02/19 07:10 Serum or plasma creatine kinase measurem ent (enzymatic activity/volume) 656 U/L 30-200 PT panel in platelet poor plasma by coag ulation assay - 07/02/19 07:10 Prothrombin time (PT) in platelet poor plasma by coagu lation assay 72.4 s 12.2-14.7 INR in platelet poor plasma or blood by coagulation as say 8.2 0.8-1.4 Manual absolute plasma cell count - 07/18 07:10 Blood monocytes/100 leukocytes 5 % NRG Manual blood segmented neutrophils/100 leukocytes 90 % NRG Blood band neutrophils/100 leukocytes 0 % NRG Manual blood lymphocytes/100 leukocytes 5 % NRG Manual eosinophils/100 leukocytes in nose 0 % NRG Manual blood basophils/100 leukocytes 0 % NRG Blood anisocytosis detection by light microscopy S LIGHT NRG Blood macrocytes detection by light microscopy SLI GHT NRG Blood poikilocytosis detection by light microscopy SLIGHT NRG FRESH FROZEN PLASMA - 07/02/19 07:37 FRESH FROZEN PLASMA TRANSFUSE D 07/02/19 1250 NRG RED CELLS LEUKO REDUCED AS1 - 07/02/19 0 7:37 RED CELLS LEUKO REDUCED AS1 T RANSFUSED 07/02/19 195 NRG Blood type T Indirect antibody screen [facility] - 07/02/19 07:37 WRISTBAND NUMBER [id number] NRG ABO+Rh group AN NRG Blood group antibody screen NEGATIVE NR G Whole blood hemoglobin and hematocrit [facility] - 07/02/19 14:10 Venous blood hemoglobin measurement (mass/volume) 6.1 g/dL 13.3-17.7 Blood hematocrit (volume fraction) 20 % 40-54 Complete urinalysis with reflex to cultu re - 07/02/19 16:59 Urine color determination ORANGE NRG Urine clarity determination CLEAR NR G Urine pH measurement by test strip 5.5 5-9 Specific gravity of urine by test strip 1.025 1.016-1.022 Urine protein assay by test strip, semi-quantitative TRACE NEGATIVE Urine glucose detection by automated test strip NE GATIVE NEGATIVE Erythrocytes detection in urine sediment by light micr oscopy 3+ NEGATIVE Urine ketones detection by automated test strip TR GUILLERMO NEGATIVE Urine nitrite detection by test strip NEGATIVE NEGATIVE Urine total bilirubin detection by test strip 1+ NEGATIVE Urine urobilinogen measurement by automated test strip (mass/volume) 2.0 mg/dL < = 1.0 Urine leukocyte esterase detection by dipstick NEG ATIVE NEGATIVE Automated urine sediment erythrocyte cou nt by microscopy (number/high power field) [HPF] NRG Automated urine sediment leukocyte count by microscopy (number/high power field) [HPF] NRG Bacteria detection in urine sediment by light microsco py TRACE NRG Crystals detection in urine sediment by light microsco py PRESENT NRG Casts detection in urine sediment by light microscopy NONE NRG Mucus detection in urine sediment by light microscopy NEGATIVE NRG Complete urinalysis with reflex to culture NO NRG Amorphous sediment detection in urine sediment by ligh t microscopy MOD PATITO URATES NRG PT panel in platelet poor plasma by coag ulation assay - 07/02/19 17:20 Prothrombin time (PT) in platelet poor plasma by coagu lation assay 16.3 s 12.2-14.7 INR in platelet poor plasma or blood by coagulation as say 1.3 0.8-1.4 Venous blood hemoglobin measurement (mas s/volume) - 07/02/19 23:17 Venous blood hemoglobin measurement (mass/volume) 8.5 g/dL 13.3-17.7 Blood hematocrit (volume fraction) - 07/18 23:17 Blood hematocrit (volume fraction) 27 % 40-54 Comprehensive metabolic panel - 07/03/19 05:42 Serum or plasma sodium measurement (moles/volume) 143 mmol/L 135-145 Serum or plasma potassium measurement (moles/volume) 4.0 mmol/L 3.6-5.0 Serum or plasma chloride measurement (moles/volume) 110 mmol/L 98-107 Carbon dioxide 24 mmol/L 21-32 Serum or plasma anion gap determination (moles/volume) 9 mmol/L 5-14 Serum or plasma urea nitrogen measurement (mass/volume ) 33 mg/dL 7-18 Serum or plasma creatinine measurement (mass/volume) 1.10 mg/dL 0.60-1.30 Serum or plasma urea nitrogen/creatinine mass ratio 30 NRG Serum or plasma creatinine measurement w ith calculation of estimated glomerular filtration rate > NRG Serum or plasma glucose measurement (mass/volume) 97 mg/dL 70-105 Serum or plasma calcium measurement (mass/volume) 8.2 mg/dL 8.5-10.1 Serum or plasma total bilirubin measurement (mass/volu me) 1.8 mg/dL 0.1-1.0 Serum or plasma alkaline phosphatase sergei surement (enzymatic activity/volume) 52 U/L 40-136 Serum or plasma aspartate aminotransfera se measurement (enzymatic activity/volume) 166 U/L 5-34 Serum or plasma alanine aminotransferase measurement (enzymatic activity/volume) 62 U/L 0-55 Serum or plasma protein measurement (mass/volume) 5.6 g/dL 6.4-8.2 Serum or plasma albumin measurement (mass/volume) 3.4 g/dL 3.2-4.5 CALCIUM CORRECTED 8.7 mg/dL 8.5-10.1 Complete blood count (CBC) with automate d white blood cell (WBC) differential - 07/03/19 05:43 Blood leukocytes automated count (number/volume) 13.4 10*3/uL 4.3-11.0 Blood erythrocytes automated count (number/volume) 2.60 10*6/uL 4.35-5.85 Venous blood hemoglobin measurement (mass/volume) 8.5 g/dL 13.3-17.7 Blood hematocrit (volume fraction) 27 % 40-54 Automated erythrocyte mean corpuscular volume 104 [foz_us] 80-99 Automated erythrocyte mean corpuscular h emoglobin (mass per erythrocyte) 33 pg 25-34 Automated erythrocyte mean corpuscular h emoglobin concentration measurement (mass/volume) 32 g/dL 32-36 Automated erythrocyte distribution width ratio 23. 1 % 10.0- 14.5 Automated blood platelet count (count/volume) 235 10*3/uL 130-400 Automated blood platelet mean volume measurement 8.8 [foz_us] 7.4-10.4 Automated blood neutrophils/100 leukocytes 86 % 42-75 Automated blood lymphocytes/100 leukocytes 3 % 12-44 Blood monocytes/100 leukocytes 10 % 0-12 Automated blood eosinophils/100 leukocytes 0 % 0-10 Automated blood basophils/100 leukocytes 0 % 0-10 Blood neutrophils automated count (number/volume) 11.6 10*3 1.8-7.8 Blood lymphocytes automated count (number/volume) 0.4 10*3 1.0-4.0 Blood monocytes automated count (number/volume) 1. 4 10*3 0.0-1.0 Automated eosinophil count 0.0 10*3/uL 0 .0-0.3 Automated blood basophil count (count/volume) 0.0 10*3/uL 0.0-0.1 PT panel in platelet poor plasma by coag ulation assay - 07/03/19 05:43 Prothrombin time (PT) in platelet poor plasma by coagu lation assay 14.4 s 12.2-14.7 INR in platelet poor plasma or blood by coagulation as say 1.1 0.8-1.4 Automated blood complete blood count (he mogram) panel - 07/04/19 06:06 Blood leukocytes automated count (number/volume) 10.2 10*3/uL 4.3-11.0 Blood erythrocytes automated count (number/volume) 2.64 10*6/uL 4.35-5.85 Venous blood hemoglobin measurement (mass/volume) 8.7 g/dL 13.3-17.7 Blood hematocrit (volume fraction) 28 % 40-54 Automated erythrocyte mean corpuscular volume 105 [foz_us] 80-99 Automated erythrocyte mean corpuscular h emoglobin (mass per erythrocyte) 33 pg 25-34 Automated erythrocyte mean corpuscular h emoglobin concentration measurement (mass/volume) 31 g/dL 32-36 Automated erythrocyte distribution width ratio 22. 2 % 10.0- 14.5 Automated blood platelet count (count/volume) 234 10*3/uL 130-400 Automated blood platelet mean volume measurement 9.5 [foz_us] 7.4-10.4 PT panel in platelet poor plasma by coag ulation assay - 07/04/19 06:06 Prothrombin time (PT) in platelet poor plasma by coagu lation assay 16.7 s 12.2-14.7 INR in platelet poor plasma or blood by coagulation as say 1.3 0.8-1.4 Comprehensive metabolic panel - 07/04/19 06:06 Serum or plasma sodium measurement (moles/volume) 144 mmol/L 135-145 Serum or plasma potassium measurement (moles/volume) 3.9 mmol/L 3.6-5.0 Serum or plasma chloride measurement (moles/volume) 112 mmol/L 98-107 Carbon dioxide 23 mmol/L 21-32 Serum or plasma anion gap determination (moles/volume) 9 mmol/L 5-14 Serum or plasma urea nitrogen measurement (mass/volume ) 31 mg/dL 7-18 Serum or plasma creatinine measurement (mass/volume) 0.83 mg/dL 0.60-1.30 Serum or plasma urea nitrogen/creatinine mass ratio 37 NRG Serum or plasma creatinine measurement w ith calculation of estimated glomerular filtration rate > NRG Serum or plasma glucose measurement (mass/volume) 96 mg/dL 70-105 Serum or plasma calcium measurement (mass/volume) 8.3 mg/dL 8.5-10.1 Serum or plasma total bilirubin measurement (mass/volu me) 1.5 mg/dL 0.1-1.0 Serum or plasma alkaline phosphatase sergei surement (enzymatic activity/volume) 44 U/L 40-136 Serum or plasma aspartate aminotransfera se measurement (enzymatic activity/volume) 169 U/L 5-34 Serum or plasma alanine aminotransferase measurement (enzymatic activity/volume) 78 U/L 0-55 Serum or plasma protein measurement (mass/volume) 5.3 g/dL 6.4-8.2 Serum or plasma albumin measurement (mass/volume) 3.0 g/dL 3.2-4.5 CALCIUM CORRECTED 9.1 mg/dL 8.5-10.1 Automated blood complete blood count (he mogram) panel - 07/05/19 04:32 Blood leukocytes automated count (number/volume) 6.7 10*3/uL 4.3-11.0 Blood erythrocytes automated count (number/volume) 2.40 10*6/uL 4.35-5.85 Venous blood hemoglobin measurement (mass/volume) 7.9 g/dL 13.3-17.7 Blood hematocrit (volume fraction) 26 % 40-54 Automated erythrocyte mean corpuscular volume 107 [foz_us] 80-99 Automated erythrocyte mean corpuscular h emoglobin (mass per erythrocyte) 33 pg 25-34 Automated erythrocyte mean corpuscular h emoglobin concentration measurement (mass/volume) 31 g/dL 32-36 Automated erythrocyte distribution width ratio 21. 7 % 10.0- 14.5 Automated blood platelet count (count/volume) 231 10*3/uL 130-400 Automated blood platelet mean volume measurement 8.9 [foz_us] 7.4-10.4 PT panel in platelet poor plasma by coag ulation assay - 07/05/19 04:32 Prothrombin time (PT) in platelet poor plasma by coagu lation assay 19.3 s 12.2-14.7 INR in platelet poor plasma or blood by coagulation as say 1.6 0.8-1.4 Comprehensive metabolic panel - 07/05/19 04:32 Serum or plasma sodium measurement (moles/volume) 143 mmol/L 135-145 Serum or plasma potassium measurement (moles/volume) 3.7 mmol/L 3.6-5.0 Serum or plasma chloride measurement (moles/volume) 112 mmol/L 98-107 Carbon dioxide 25 mmol/L 21-32 Serum or plasma anion gap determination (moles/volume) 6 mmol/L 5-14 Serum or plasma urea nitrogen measurement (mass/volume ) 28 mg/dL 7-18 Serum or plasma creatinine measurement (mass/volume) 0.79 mg/dL 0.60-1.30 Serum or plasma urea nitrogen/creatinine mass ratio 35 NRG Serum or plasma creatinine measurement w ith calculation of estimated glomerular filtration rate > NRG Serum or plasma glucose measurement (mass/volume) 113 mg/dL 70-105 Serum or plasma calcium measurement (mass/volume) 7.7 mg/dL 8.5-10.1 Serum or plasma total bilirubin measurement (mass/volu me) 1.0 mg/dL 0.1-1.0 Serum or plasma alkaline phosphatase sergei surement (enzymatic activity/volume) 42 U/L 40-136 Serum or plasma aspartate aminotransfera se measurement (enzymatic activity/volume) 106 U/L 5-34 Serum or plasma alanine aminotransferase measurement (enzymatic activity/volume) 66 U/L 0-55 Serum or plasma protein measurement (mass/volume) 4.8 g/dL 6.4-8.2 Serum or plasma albumin measurement (mass/volume) 2.7 g/dL 3.2-4.5 CALCIUM CORRECTED 8.7 mg/dL 8.5-10.1 Whole blood hemoglobin and hematocrit pa luis alfredo - 07/05/19 13:08 Venous blood hemoglobin measurement (mass/volume) 9.3 g/dL 13.3-17.7 Blood hematocrit (volume fraction) 30 % 40-54 Automated blood complete blood count (he mogram) panel - 07/06/19 05:57 Blood leukocytes automated count (number/volume) 5.8 10*3/uL 4.3-11.0 Blood erythrocytes automated count (number/volume) 2.78 10*6/uL 4.35-5.85 Venous blood hemoglobin measurement (mass/volume) 9.2 g/dL 13.3-17.7 Blood hematocrit (volume fraction) 30 % 40-54 Automated erythrocyte mean corpuscular volume 107 [foz_us] 80-99 Automated erythrocyte mean corpuscular h emoglobin (mass per erythrocyte) 33 pg 25-34 Automated erythrocyte mean corpuscular h emoglobin concentration measurement (mass/volume) 31 g/dL 32-36 Automated erythrocyte distribution width ratio 20. 0 % 10.0- 14.5 Automated blood platelet count (count/volume) 278 10*3/uL 130-400 Automated blood platelet mean volume measurement 9.6 [foz_us] 7.4-10.4 Comprehensive metabolic panel - 07/06/19 05:57 Serum or plasma sodium measurement (moles/volume) 141 mmol/L 135-145 Serum or plasma potassium measurement (moles/volume) 3.9 mmol/L 3.6-5.0 Serum or plasma chloride measurement (moles/volume) 110 mmol/L 98-107 Carbon dioxide 22 mmol/L 21-32 Serum or plasma anion gap determination (moles/volume) 9 mmol/L 5-14 Serum or plasma urea nitrogen measurement (mass/volume ) 25 mg/dL 7-18 Serum or plasma creatinine measurement (mass/volume) 0.72 mg/dL 0.60-1.30 Serum or plasma urea nitrogen/creatinine mass ratio 35 NRG Serum or plasma creatinine measurement w ith calculation of estimated glomerular filtration rate > NRG Serum or plasma glucose measurement (mass/volume) 92 mg/dL 70-105 Serum or plasma calcium measurement (mass/volume) 8.2 mg/dL 8.5-10.1 Serum or plasma total bilirubin measurement (mass/volu me) 1.4 mg/dL 0.1-1.0 Serum or plasma alkaline phosphatase sergei surement (enzymatic activity/volume) 46 U/L 40-136 Serum or plasma aspartate aminotransfera se measurement (enzymatic activity/volume) 73 U/L 5-34 Serum or plasma alanine aminotransferase measurement (enzymatic activity/volume) 63 U/L 0-55 Serum or plasma protein measurement (mass/volume) 5.1 g/dL 6.4-8.2 Serum or plasma albumin measurement (mass/volume) 3.0 g/dL 3.2-4.5 CALCIUM CORRECTED 9.0 mg/dL 8.5-10.1 PT panel in platelet poor plasma by coag ulation assay - 07/06/19 05:57 Prothrombin time (PT) in platelet poor plasma by coagu lation assay 20.8 s 12.2-14.7 INR in platelet poor plasma or blood by coagulation as say 1.7 0.8-1.4 Automated blood complete blood count (he mogram) panel - 07/07/19 05:56 Blood leukocytes automated count (number/volume) 5.2 10*3/uL 4.3-11.0 Blood erythrocytes automated count (number/volume) 2.63 10*6/uL 4.35-5.85 Venous blood hemoglobin measurement (mass/volume) 8.6 g/dL 13.3-17.7 Blood hematocrit (volume fraction) 28 % 40-54 Automated erythrocyte mean corpuscular volume 107 [foz_us] 80-99 Automated erythrocyte mean corpuscular h emoglobin (mass per erythrocyte) 33 pg 25-34 Automated erythrocyte mean corpuscular h emoglobin concentration measurement (mass/volume) 31 g/dL 32-36 Automated erythrocyte distribution width ratio 19. 6 % 10.0- 14.5 Automated blood platelet count (count/volume) 295 10*3/uL 130-400 Automated blood platelet mean volume measurement 9.1 [foz_us] 7.4-10.4 PT panel in platelet poor plasma by coag ulation assay - 07/07/19 05:56 Prothrombin time (PT) in platelet poor plasma by coagu lation assay 21.5 s 12.2-14.7 INR in platelet poor plasma or blood by coagulation as say 1.8 0.8-1.4 Automated blood complete blood count ( mogram) panel - 07/08/19 04:50 Blood leukocytes automated count (number/volume) 6.2 10*3/uL 4.3-11.0 Blood erythrocytes automated count (number/volume) 2.84 10*6/uL 4.35-5.85 Venous blood hemoglobin measurement (mass/volume) 9.4 g/dL 13.3-17.7 Blood hematocrit (volume fraction) 30 % 40-54 Automated erythrocyte mean corpuscular volume 106 [foz_us] 80-99 Automated erythrocyte mean corpuscular h emoglobin (mass per erythrocyte) 33 pg 25-34 Automated erythrocyte mean corpuscular h emoglobin concentration measurement (mass/volume) 31 g/dL 32-36 Automated erythrocyte distribution width ratio 19. 3 % 10.0- 14.5 Automated blood platelet count (count/volume) 295 10*3/uL 130-400 Automated blood platelet mean volume measurement 9.3 [foz_us] 7.4-10.4 PT panel in platelet poor plasma by coag ulation assay - 07/08/19 04:50 Prothrombin time (PT) in platelet poor plasma by coagu lation assay 19.7 s 12.2-14.7 INR in platelet poor plasma or blood by coagulation as say 1.6 0.8-1.4 Capillary blood glucose measurement by g lucometer (mass/volume) - 07/08/19 16:21 Capillary blood glucose measurement by glucometer (mas s/volume) 83 mg/dL 70-110 Automated blood complete blood count (he mogram) panel - 07/09/19 06:15 Blood leukocytes automated count (number/volume) 6.9 10*3/uL 4.3-11.0 Blood erythrocytes automated count (number/volume) 3.07 10*6/uL 4.35-5.85 Venous blood hemoglobin measurement (mass/volume) 10.0 g/dL 13.3-17.7 Blood hematocrit (volume fraction) 33 % 40-54 Automated erythrocyte mean corpuscular volume 106 [foz_us] 80-99 Automated erythrocyte mean corpuscular h emoglobin (mass per erythrocyte) 33 pg 25-34 Automated erythrocyte mean corpuscular h emoglobin concentration measurement (mass/volume) 31 g/dL 32-36 Automated erythrocyte distribution width ratio 19. 7 % 10.0- 14.5 Automated blood platelet count (count/volume) 364 10*3/uL 130-400 Automated blood platelet mean volume measurement 9.2 [foz_us] 7.4-10.4 PT panel in platelet poor plasma by coag ulation assay - 07/09/19 06:15 Prothrombin time (PT) in platelet poor plasma by coagu lation assay 19.2 s 12.2-14.7 INR in platelet poor plasma or blood by coagulation as say 1.5 0.8-1.4 Complete blood count (CBC) with automate d white blood cell (WBC) differential - 07/10/19 06:55 Blood leukocytes automated count (number/volume) 6.1 10*3/uL 4.3-11.0 Blood erythrocytes automated count (number/volume) 3.28 10*6/uL 4.35-5.85 Venous blood hemoglobin measurement (mass/volume) 11.0 g/dL 13.3-17.7 Blood hematocrit (volume fraction) 35 % 40-54 Automated erythrocyte mean corpuscular volume 107 [foz_us] 80-99 Automated erythrocyte mean corpuscular h emoglobin (mass per erythrocyte) 34 pg 25-34 Automated erythrocyte mean corpuscular h emoglobin concentration measurement (mass/volume) 31 g/dL 32-36 Automated erythrocyte distribution width ratio 19. 6 % 10.0- 14.5 Automated blood platelet count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
[2019-07-11 16:13] VITALS: BP 123/77
[2019-07-11 17:38] VITALS: BP 136/78
[2019-07-11] MEDS: rOPINIRole 1 MG (REQUIP) TABLET PO SCH (18:01)
[2019-07-11] MEDS: warFARin 2 MG (COUMADIN) TAB PO SCH (18:01)
[2019-07-11] MEDS: meTOproloL SUCCINATE 50 MG (TOPROL XL) TAB PO SCH (19:58)
[2019-07-12 05:06] VITALS: BP 168/76
--- NOTE | 2019-07-12 06:05 | NUR ---
Pt has been alert and oriented x3-4 and using call light appropriately but is more confused this am. Pt has been up and down to the bathroom 8 times this shift. Urine appears to be dark yellow with no odor. Will cont to monitor and pass on to day shift to f/u with Dr. Blandon
[2019-07-12] MEDS: SENNA W/DOCUSATE (SENOKOT S) TABLET PO SCH ×2 (08:23→20:23)
[2019-07-12] MEDS: polyethylene glycoL POWDER 17 GM (MIRALAX) PACK PO SCH ×2 (08:23→20:23)
[2019-07-12] MEDS: ACETAMINOPHEN 500 MG TAB (TYLENOL) PO SCH ×2 (08:36→20:24)
[2019-07-12] MEDS: PANTOPRAZOLE 20 MG TABLET (PROTONIX) PO SCH ×2 (08:36→20:23)
--- NOTE | 2019-07-12 08:55 | Occupational Ther Daily Note ---
OT Current Status-Daily Note Subjective Pt laying in bed at start of session, agreeable to OT tx this AM. ADL-Treatment Therapy Code Descriptions/Definitions Functional [place] Measure: 0=Not Assessed/NA 4=Minimal Assistance 1=Total Assistance 5=Supervision or Setup 2=Maximal Assistance 6=Modified [place] 3=Moderate Assistance 7=Complete IndependenceSCALE: Activities may be completed with or without assistive devices. 4-Ivqvxcrdlx-wwnyvfu completes the activity by him/herself with no assistance from a helper. 5-Set-up or Clean-up Assistance-helper sets up or cleans up; patient completes activity. [place] assists only prior to or following the activity. 4-Supervision or Touching Assistance-helper provides verbal cues and/or chemo lisa/steadying and/or contact guard assistance as patient completes activity. Assistance may be provided throughout the activity or intermittently. 3-Partial/Moderate Assistance-helper does LESS THAN HALF the effort. [place] lifts, holds or supports trunk or limbs, but provides less than half the effort. 2-Substantial/Maximal Assistance-helper does MORE THAN HALF the effort. [place] lifts or holds trunk or limbs and provides more than half the effort. 4-Okcavpxlb-krdhbv does ALL the effort. Patient does none of the effort to complete the activity. Or, the assistance of 2 or more helpers is required for the patient to complete the activity. If activity was not attempted, code reason: 7-Patient Refused. 9-Not Applicable-not attempted and the patient did not perform the activity before the current illness, exacerbation or injury. 10-Not Attempted due to Environmental Limitations-(lack of equipment, weather restraints, etc.). 88-Not Attempted due to Medical Conditions or Safety Concerns. Oral Hygiene (QC): 4 (CGA standing at sink) Bathing Location: L Arm, R Arm, L Upper Leg, R Upper Leg, L Lower Leg (including foot), R Lower Leg (including foot), Chest, Abdomen, Buttocks, Perineal Area Shower/Bathe Self (QC): 4 (CGA during stand at [facility]. Pt able to wash all parts. He stood without notice, requiring close supervision during task.) Upper Body Dressing (QC): 5 (set up, pt donned pot puller shirt. ) Lower Body Dressing (QC): 4 (Pt doffed briefs/donning briefs and pants. He required CGA during stand at [facility]. He stood without warning and before walker was placed in front of him. He required close supervision for safety during task. ) On/Off Footwear: 4 (SBA, pt able to doff socks, and don. Pt put sock on half way, stating he thought it was upside down, required verbal cue that he was putting it on correctly. ) Toileting Hygiene (QC): 4 (CGA with clothing management at [facility]. ) Toilet Transfer (QC): 4 (CGA on/off toilet with GBs/FWW) Other Treatment Pt transferred supine to sit with SBA, then CGA to stand at [facility]. Pt went to bathroom where he stood at the sink to complete oral hygiene, then he completed toileting, showering, and dressing. Pt returned to sit EOB in order to take meds from nurse. He combed his hair and used an electric razor with set up assistance. Pt ambulated to therapy area with [facility] and [facility] where he completed arm bike x15 mins, min resistance and no rest breaks in order to increase BUE strength and functional endurance with tasks. After a rest break, pt completed functional reaching activity of placing/removing x25, 1" pegs into pegboard, alternating hands, with 1lb wrist cuffs on each wrist in order to increase BUE strength, endurance, and fine motor strengthening. He required min cues during task to remind him to alternate hands. Pt then returned to his room to the recliner. Post OT session, pt seated in recliner, call light in reach and all needs met with chair alarm on. Education OT Patient Education: Correct positioning, Energy conservation, Exercise program, Modified ADL techniques, Progress toward Goal/Update tx plan, Purpose of tx/functional activities, Safety issues, Transfer techniques Teaching Recipient: Patient Teaching Methods: Discussion Response to Teaching: Verbalize Understanding, Reinforcement Needed OT Short Term Goals Short Term Goals Time Frame: Jul 24, 2019 Shower/bathe self: 5 Upper body dressin Lower body dressin OT [place] Opener Goals [place] Opener Goals Time Frame: Aug 02, 2019 Eating (QC): 6 Oral Hygiene (QC): 6 Toileting Hygiene (QC): 6 Shower/Bathe Self (QC): 6 Upper Body Dressing (QC): 6 Lower Body Dressing (QC): 6 On/Off Footwear (QC): 6 Additional Goals: 1-Demonstrate ADL Tasks, 2-Verbalize Understanding, 3- ImproveStrength/Bill 1=Demonstrate adherence to instructed precautions during ADL tasks. 2=Patient will verbalize/demonstrate understanding of assistive devices/modifications for ADL. 3=Patient will improve strength/tolerance for activity to enable patient to perform ADL's. OT Education/Plan Problem List/Assessment Assessment: Decreased Activ Tolerance, Decreased Safety Aware, Decreased UE Strength, Impaired I ADL's, Impaired Self-Care Skills Discharge Recommendations Plan/Recommendations: Continue POC Treatment Plan/Plan of Care Patient would benefit from OT for education, treatment and training to promote independence in ADL's, mobility, safety and/or upper extremity function for ADL's. Plan of Care: ADL Retraining, Functional Mobility, Group Exercise/Act as Ind, UE Funct Exercise/Act Treatment Duration: Aug 02, 2019 Frequency: At least 5 of 7 days/Wk (IRF) Estimated Hrs Per Day: 1.5 hours per day Agreement: Yes Rehab Potential: Fair Time/GCodes Start Time: 08:00 Stop Time: 09:15 Total Time Billed (hr/min): 75 Billed Treatment Time 1, ADL 3 (45'), EX (15'), FA (15') [address] OT Jul 12, 2019 08:55
--- NOTE | 2019-07-12 08:59 | PM&R Progress Note ---
Subjective HPI/CC On Admission Date Seen by Provider: Jul 12, 2019 Time Seen by Provider: 09:00 Subjective/Events-last exam Confused at night Urinary frequency will be reported to PCP Dr. Martinez since he got up to go the bathroom eight times last night Denies any pain Conferred with RN Reviewed therapy notes Checked meds and labs Review of Systems General: Fatigue Genitourinary: Frequency Neurological: Confusion Objective Exam Vital Signs Vital Signs Date Time Temp Pulse Resp B/P (MAP) Pulse Ox O2 Delivery O2 Flow Rate FiO2 07/12/19 20:27 87 123/63 (83) 07/12/19 16:00 37.0 20 100 Room Air Capillary Refill : Less Than 3 Seconds General Appearance: No Apparent Distress, WD/WN, Chronically ill, Thin, Other (frail) HEENT: PERRL/EOMI, Normal ENT Inspection, Pharynx Normal Neck: Full Range of Motion, Normal Inspection, Non Tender, Supple, Carotid Bruit Respiratory: Chest Non Tender, Lungs Clear, Normal Breath Sounds, No Accessory Muscle Use, No Respiratory Distress Cardiovascular: Regular Rate, Rhythm, No Edema, No Gallop, No JVD, No Murmur, Normal Peripheral Pulses, Other (click) Gastrointestinal: Normal Bowel Sounds, No Organomegaly, No Pulsatile Mass, Non Tender, Soft Back: Normal Inspection, No CVA Tenderness, Decreased Range of Motion Extremity: Normal Capillary Refill, Normal Inspection, Normal Range of Motion, Non Tender, No Calf Tenderness, No Pedal Edema Neurologic/Psychiatric: Alert, Oriented x3, No Motor/Sensory Deficits, Normal Mood/Affect, giver II-XII Norm as Tested, Disoriented (subtle poor recall), Motor Weakness (generalized legs) Skin: Normal Color, Warm/Dry Lymphatic: No Adenopathy Results/Procedures Lab Laboratory Tests 07/12/19 09:35 Patient resulted labs reviewed. FIM Transfers Therapy Code Descriptions/Definitions Functional [place] Measure: 0=Not Assessed/NA 4=Minimal Assistance 1=Total Assistance 5=Supervision or Setup 2=Maximal Assistance 6=Modified [place] 3=Moderate Assistance 7=Complete IndependenceSCALE: Activities may be completed with or without assistive devices. 7-Hreoxxjkei-ngdravd completes the activity by him/herself with no assistance from a helper. 5-Set-up or Clean-up Assistance-helper sets up or cleans up; patient completes activity. [place] assists only prior to or following the activity. 4-Supervision or Touching Assistance-helper provides verbal cues and/or t ouching/steadying and/or contact guard assistance as patient completes activity. Assistance may be provided throughout the activity or intermittently. 3-Partial/Moderate Assistance-helper does LESS THAN HALF the effort. [place] lifts, holds or supports trunk or limbs, but provides less than half the effort. 2-Substantial/Maximal Assistance-helper does MORE THAN HALF the effort. [place] lifts or holds trunk or limbs and provides more than half the effort. 8-Qavdhxeoi-vjxsjm does ALL the effort. Patient does none of the effort to complete the activity. Or, the assistance of 2 or more helpers is required for the patient to complete the activity. If activity was not attempted, code reason: 7-Patient Refused. 9-Not Applicable-not attempted and the patient did not perform the activity before the current illness, exacerbation or injury. 10-Not Attempted due to Environmental Limitations-(lack of equipment, weather restraints, etc.). 88-Not Attempted due to Medical Conditions or Safety Concerns. Roll Left to Right (QC): 4 Sit to Lying (QC): 4 (SBA) Sit to Stand (QC): 4 (CGA) Chair/Vky-sy-Phqdh Xfer(QC): 4 (CGA) Car Transfer (QC): 3 Gait Training Does the Patient Walk?: Yes Distance: 100ft x3+150 Walk 10 feet (QC): 4 (CGA) Walk 50 ft with 2 Turns(QC): 4 (CGA) Walk 150 ft (QC): 4 (CGA) Walking 10ft/uneven surface-QC: 4 Gait Persons Needed: 1 Gait Assistive Device: FWW Wheelchair Training Does the Pt Use a Wheelchair?: No Stair Training Stair Training: Handrails/: 2 handrails #of Steps: 8 1 Step (curb) (QC): 4 4 Steps (QC): 4 12 Steps (QC): 88 Stairs: Pattern: Step to Balance Picking up an Object (QC): 4 (CGA) ADL-Treatment Eating (QC): 6 (Per pt report, he had no difficulties eating lunch prior to session.) Oral Hygiene (QC): 4 (CGA standing at sink) Shower/Bathe Self (QC): 7 (Pt declines showering today, stating he is aready dressed.) Upper Body Dressing (QC): 5 (set up assist) Lower Body Dressing (QC): 4 (CGA, pt able to doff briefs, then don briefs and pants with CGA during stand at [facility]. He requrired increased time for task.) On/Off Footwear (QC): 3 (Pt doffed slipper socks, and donned regular socks. The n he was able to don L shoe without assistance, but he required assistance putting his foot in his right shoe. Pt then able to tie laces on both shoes.) Toileting Hygiene (QC): 7 (Pt reports he has already went to the bathroom a couple times this morning.) Toilet Transfer (QC): 4 (CGA on/off toilet) Assessment/Plan Assessment and Plan Assess & Plan/Chief Complaint Assessment: Fall Iliopsoas muscle bleed s/p supratherapeutic INR with labile levels chronically Acute blood loss anemia Dementia Delirium Urinary frequency- UA nl Plan: Monitor pain INR per PCP Dr Egan consultation IRF protocol Fall risk (1) Debility (2) Supratherapeutic INR (3) Acute blood loss anemia Status: Resolved (4) Dementia Status: Chronic (5) Chronic anticoagulation Status: Chronic (6) Mechanical heart valve present Status: Chronic (7) Hypertension Status: Chronic (8) Insomnia Status: Chronic (9) Esophageal reflux Status: Chronic (10) Fall Status: Acute ZULEYKA BURLESON DO Jul 12, 2019 08:59
[2019-07-12 09:43] LABS: HEMOGLOBIN 10.8 G/DL (13.3-17.7); MEAN PLATELET VOLUME 9.4 FL (7.4-10.4); RED CELL DISTRIBUTION WIDTH 19.3 % (10.0-14.5); WHITE BLOOD COUNT 7.5 10^3/uL (4.3-11.0)
[2019-07-12 09:57] LABS: INR 1.9 (0.8-1.4); PROTHROMBIN TIME PATIENT 22.2 SEC (12.2-14.7)
[2019-07-12 10:05] LABS: BUN/CREATININE RATIO 34; CALCIUM 8.4 MG/DL (8.5-10.1); CARBON DIOXIDE 23 MMOL/L (21-32); CHLORIDE 106 MMOL/L (98-107); CREATININE SERUM 0.87 MG/DL (0.60-1.30); GFR ESTIMATED > 60; GLUCOSE 109 MG/DL (70-105); POTASSIUM 4.2 MMOL/L (3.6-5.0); SODIUM 140 MMOL/L (135-145)
--- NOTE | 2019-07-12 11:00 | Speech Therapy Daily Note ---
Speech Daily Progress Note Subjective Date Seen by Provider: Jul 12, 2019 Time Seen by Provider: 00:30 Patient was alert and actively participated in planned activity. Objective Patient engaged in a memory task game involving several topics in which he required minimal cueing at 70% accuracy. Assessment Assessment Current Status: Good Progress Treatment Plan Continue Plan of Care Speech Short Term Goals Short Term Goals Short Term Goals 1) The patient will complete memory tasks related to his daily needs at 80% or greater. 2) The patient will complete problem solving tasks related to his daily needs at 80% or greater. 3) The patient will complete safety awareness tasks related to his daily needs a t 80% or greater. Speech Intermediate Goals Intermediate Goals Patient will improve cognitive-communication necessary for safety and daily living tasks with minimal assist. Speech-Plan Patient/Family Goals Patient/Family Goals: Patient will return to daily activities upon discharge. Treatment Plan Speech Therapy Treatment Plan: Continue Plan of Care Treatment Duration: Jul 09, 2019 Frequency: 5 times per week Estimated Hrs Per Day: .5 hour per day Rehab Potential: Fair Barriers to Learning: Patient presents with a moderate level of demetia. Pt/Family Agrees to Plan: Yes Safety Risks/Education Teaching Recipient: Patient Teaching Methods: Demonstration, Discussion Response to Teaching: Verbalize Understanding, Return Demonstration Education Topics Provided: Safety within the home environment. Time Speech Therapy Time In: 09:30 Speech Therapy Time Out: 10:00 Total Billed Time: 30 Billed Treatment Time [address] Jul 12, 2019 10:59
--- NOTE | 2019-07-12 11:01 | Physical Therapy Daily Note ---
PT Daily Note-Current Subjective No pain reported by patient. Patient motivated to participate in PT. Appearance Patient was returned to room with call light and tray in reach. Alarm in chair set. Mental Status Patient Orientation: Person, Confused, Place, Eyes Open Transfers SCALE: Activities may be completed with or without assistive devices. 8-Ymukkkrfuf-ahujxoo completes the activity by him/herself with no assistance from a helper. 5-Set-up or Clean-up Assistance-helper sets up or cleans up; patient completes activity. Vivian assists only prior to or following the activity. 4-Supervision or Touching Assistance-helper provides verbal cues and/or touching/steadying and/or contact guard assistance as patient completes activity. Assistance may be provided throughout the activity or intermittently. 3-Partial/Moderate Assistance-helper does LESS THAN HALF the effort. Vivian lif ts, holds or supports trunk or limbs, but provides less than half the effort. 2-Substantial/Maximal Assistance-helper does MORE THAN HALF the effort. Vivian lifts or holds trunk or limbs and provides more than half the effort. 5-Umkizhebz-hyhwee does ALL the effort. Patient does none of the effort to complete the activity. Or, the assistance of 2 or more helpers is required for the patient to complete the activity. If activity was not attempted, code reason: 7-Patient Refused. 9-Not Applicable-not attempted and the patient did not perform the activity before the current illness, exacerbation or injury. 10-Not Attempted due to Environmental Limitations-(lack of equipment, weather restraints, etc.). 88-Not Attempted due to Medical Conditions or Safety Concerns. Sit to Lying (QC): 4 (CGA) Sit to Stand (QC): 4 (CGA) Chair/Uhb-za-Mpdwc Xfer(QC): 4 (CGA) CGA due to memory problems, cues for positioning Weight Bearing Right Lower Extremity: Right Full Weight Bearing Left Lower Extremity: Left Full Weight Bearing Gait Training Does the Patient Walk?: Yes Distance: 300', 120'x2 Walk 10 feet (QC): 4 (CGA) Walk 50 ft with 2 Turns(QC): 4 (GA) Walk 150 ft (QC): 4 (CGA) Gait Assistive Device: FWW Patient ambulates with forward posture and has to be given cues to stay within RW and slow down on turn. CGA due to memory problems. Exercises Seated Therapy Exercises: Ankle pumps, Sit to stand (10x), Long arc quads, Hip flexion, Hip abd/add Seated Reps: 10 (2x) Standing: Hip Abduction, Hamstring curls, Heel/toe raises, Mini squats, Sit to Stand Standing Reps: 10 (2x) NuStep Minutes: 15 NuStep Workload: 4 Assessment Current Status: Good Progress Patient complete all activates with few breaks. Patient will tell therapist when he is tired. Patient needs verbal cues for safety and for completing exercises slowly. PT Short Term Goals Short Term Goals Time Frame: Jul 16, 2019 Roll Left & Right: 6 Sit to lyin (SBA) Lying to sitting on side of be: 4 (SBA) Sit to stand: 4 (SBA) Chair/hug-zw-llpkf transfer: 4 (SBA) Walk 10 feet: 4 (SBA) Walk 50 feet with two turns: 4 (SBA) Walk 150 feet: 4 (SBA) PT Mcfp Goals Licensed Guide Goals PT Mcfp Goals Time Frame: Jul 30, 2019 Roll Left & Right (QC): 6 Sit to Lying (QC): 6 Lying-Sitting on Side/Bed(QC): 6 Sit to Stand (QC): 6 Chair/Ofx-gs-Vmgbz Xfer(QC): 6 Toilet Transfer (QC): 6 Car Transfer (QC): 6 Walk 10 feet (QC): 6 Walk 50ft with 2 Turns (QC): 6 Walk 150 ft (QC): 6 Walking 10ft on Uneven Surface: 6 1 Step (curb) (QC): 4 (SBA) 4 Steps (QC): 4 (SBA) PT Plan Problem List Problem List: Activity Tolerance, Functional Strength, Safety, Balance, Gait, Transfer, Bed Mobility, ROM, Other Treatment/Plan Treatment Plan: Continue Plan of Care Treatment Plan: Bed Mobility, Education, Functional Activity Bill, Functional Strength, Group Therapy, Gait, Safety, Therapeutic Exercise, Transfers Treatment Duration: Jul 30, 2019 Frequency: At least 5 of 7 days/Wk (IRF) Estimated Hrs Per Day: 1.5 hours per day Patient and/or Family Agrees t: Yes Safety Risks/Education Patient Education: Gait Training, Transfer Techniques, Correct Positioning, Disease Process, Safety Issues Teaching Recipient: Patient Teaching Methods: Demonstration, Discussion, Audiovisual Response to Teaching: Verbalize Understanding, Return Demonstration, Reinforcement Needed Time/GCodes Time In: 1000 Time Out: 1100 Total Billed Treatment Time: 60 Total Billed Treatment visit GT 15 EX 30 FA 15 ALESHA MILIAN PT Jul 12, 2019 11:01
--- NOTE | 2019-07-12 13:06 | Occupational Ther Daily Note ---
OT Current Status-Daily Note Subjective Pt alert, sitting in recliner. Pt agrees to therapy. No c/o pain. Mental Status/Objective Patient Orientation: Person ADL-Treatment Therapy Code Descriptions/Definitions Functional [place] Measure: 0=Not Assessed/NA 4=Minimal Assistance 1=Total Assistance 5=Supervision or Setup 2=Maximal Assistance 6=Modified [place] 3=Moderate Assistance 7=Complete IndependenceSCALE: Activities may be completed with or without assistive devices. 9-Abqyxussdy-oeymwcz completes the activity by him/herself with no assistance from a helper. 5-Set-up or Clean-up Assistance-helper sets up or cleans up; patient completes activity. [place] assists only prior to or following the activity. 4-Supervision or Touching Assistance-helper provides verbal cues and/or touching/steadying and/or contact guard assistance as patient completes activity. Assistance may be provided throughout the activity or intermittently. 3-Partial/Moderate Assistance-helper does LESS THAN HALF the effort. [place] lifts, holds or supports trunk or limbs, but provides less than half the effort. 2-Substantial/Maximal Assistance-helper does MORE THAN HALF the effort. [place] lifts or holds trunk or limbs and provides more than half the effort. 8-Dqzglkhzx-kaxgjj does ALL the effort. Patient does none of the effort to complete the activity. Or, the assistance of 2 or more helpers is required for the patient to complete the activity. If activity was not attempted, code reason: 7-Patient Refused. 9-Not Applicable-not attempted and the patient did not perform the activity before the current illness, exacerbation or injury. 10-Not Attempted due to Environmental Limitations-(lack of equipment, weather restraints, etc.). 88-Not Attempted due to Medical Conditions or Safety Concerns. Other Treatment Pt ambulated to bathroom and transferred to toilet using FWW and grabbars, mod I. Pt completed toileting hygiene/clothing manipulation, mod I. Ambulated to recliner to complete UE exercises to increase UE strength and activity tolerance. 3 UE exercises 2 sets 10 reps with verbal cues for correct technique and position. Pt tolerated well. After session, pt sitting in recliner with call light/phone in reach. All needs met in room. OT Short Term Goals Short Term Goals Time Frame: Jul 24, 2019 Shower/bathe self: 5 Upper body dressin Lower body dressin OT Jail Goals Jail Goals Time Frame: Aug 02, 2019 Eating (QC): 6 Oral Hygiene (QC): 6 Toileting Hygiene (QC): 6 Shower/Bathe Self (QC): 6 Upper Body Dressing (QC): 6 Lower Body Dressing (QC): 6 On/Off Footwear (QC): 6 Additional Goals: 1-Demonstrate ADL Tasks, 2-Verbalize Understanding, 3- ImproveStrength/Bill 1=Demonstrate adherence to instructed precautions during ADL tasks. 2=Patient will verbalize/demonstrate understanding of assistive devices/modifications for ADL. 3=Patient will improve strength/tolerance for activity to enable patient to perform ADL's. OT Education/Plan Problem List/Assessment Assessment: Decreased UE Strength, Impaired Self-Care Skills Discharge Recommendations Plan/Recommendations: Continue POC Treatment Plan/Plan of Care Patient would benefit from OT for education, treatment and training to promote independence in ADL's, mobility, safety and/or upper extremity function for ADL's. Plan of Care: ADL Retraining, Functional Mobility, Group Exercise/Act as Ind, UE Funct Exercise/Act Treatment Duration: Aug 02, 2019 Frequency: At least 5 of 7 days/Wk (IRF) Estimated Hrs Per Day: 1.5 hours per day Agreement: Yes Rehab Potential: Fair Time/GCodes Start Time: 12:45 Stop Time: 13:00 Total Time Billed (hr/min): 15 Billed Treatment Time 1 visit-FA 1 (15 min) SAUL THORNE Jul 12, 2019 13:06
[2019-07-12 15:25] LABS: BILIRUBIN,URINE NEGATIVE (NEGATIVE); CLARITY,URINE CLEAR; COLOR,URINE YELLOW; GLUCOSE, URINE (UA) NEGATIVE (NEGATIVE); KETONES,URINE TRACE (NEGATIVE); LEUKOCYTE ESTERASE ,URINE NEGATIVE (NEGATIVE); NITRITE,URINE NEGATIVE (NEGATIVE); PROTEIN,URINE TRACE (NEGATIVE)
[2019-07-12 15:34] LABS: BACTERIA,URINE TRACE /HPF; CALCIUM OXALATE CRYSTALS,UR NON /LPF; RBC,URINE RARE /HPF
[2019-07-12 16:00] VITALS: BP 148/80
[2019-07-12] MEDS: rOPINIRole 1 MG (REQUIP) TABLET PO SCH (18:27)
[2019-07-12] MEDS: warFARin 2 MG (COUMADIN) TAB PO SCH (18:27)
[2019-07-12 20:27] VITALS: BP 123/63
[2019-07-12] MEDS: meTOproloL SUCCINATE 50 MG (TOPROL XL) TAB PO SCH (20:27)
[2019-07-13 06:00] VITALS: BP 159/78
[2019-07-13 06:47] LABS: INR 1.7 (0.8-1.4); PROTHROMBIN TIME PATIENT 20.4 SEC (12.2-14.7)
[2019-07-13] MEDS: PANTOPRAZOLE 20 MG TABLET (PROTONIX) PO SCH ×2 (08:12→20:10)
[2019-07-13] MEDS: polyethylene glycoL POWDER 17 GM (MIRALAX) PACK PO SCH ×2 (08:12→20:10)
[2019-07-13] MEDS: SENNA W/DOCUSATE (SENOKOT S) TABLET PO SCH ×2 (08:12→20:10)
[2019-07-13] MEDS: ACETAMINOPHEN 500 MG TAB (TYLENOL) PO SCH ×2 (08:12→20:11)
--- NOTE | 2019-07-13 10:51 | NUR ---
Omid is an 84 yo male currently admitted to ARU post a fall at home. He has been A&O X 3-4 with this nurse but does need some reminding to use call light. He has denied pain to this nurse and during therapy treatment. He is able to ambulate CGA with rolling walker. He is cont. of bowel and bladder with last bowel movement noted this morning. The night nurse did report frequency to this nurse but no concerns noted today. His PT/INR was 20.4/1.7. This will reported to Dr. Blandon during rounds. No concerns noted at this time. This nurse will continue to monitor patient throughout shift. Addendum: 07/13/19 at 1135 by NAOMY RATLIFF RN Dr. Blandon rounded this morning. Coumadin increased to 3 mg for tonight and tomorrow. She stated she would re-evaluate on Monday when she wanted the next lab completed.
--- NOTE | 2019-07-13 11:02 | PM&R Progress Note ---
Subjective HPI/CC On Admission Date Seen by Provider: Jul 13, 2019 Time Seen by Provider: 11:15 Subjective/Events-last exam Confused at night at times Urinary frequency still occurs and UA normal which PCP ordered so will trial Pyridium during evening meal Telesitter maintained Uses walker well now INR 1.7 so adjusted coumadin Denies any pain Conferred with RN Reviewed therapy notes Checked meds and labs Review of Systems General: Fatigue Genitourinary: Frequency Neurological: Confusion Objective Exam Vital Signs Vital Signs Date Time Temp Pulse Resp B/P (MAP) Pulse Ox O2 Delivery O2 Flow Rate FiO2 07/13/19 09:36 Room Air 07/13/19 06:00 36.4 75 20 159/78 (105) 96 Capillary Refill : Less Than 3 Seconds General Appearance: No Apparent Distress, WD/WN, Chronically ill, Thin, Other (frail) HEENT: PERRL/EOMI, Normal ENT Inspection, Pharynx Normal Neck: Full Range of Motion, Normal Inspection, Non Tender, Supple, Carotid Bruit Respiratory: Chest Non Tender, Lungs Clear, Normal Breath Sounds, No Accessory Muscle Use, No Respiratory Distress Cardiovascular: Regular Rate, Rhythm, No Edema, No Gallop, No JVD, No Murmur, Normal Peripheral Pulses, Other (click) Gastrointestinal: Normal Bowel Sounds, No Organomegaly, No Pulsatile Mass, Non Tender, Soft Back: Normal Inspection, No CVA Tenderness, Decreased Range of Motion Extremity: Normal Capillary Refill, Normal Inspection, Normal Range of Motion, Non Tender, No Calf Tenderness, No Pedal Edema Neurologic/Psychiatric: Alert, Oriented x3, No Motor/Sensory Deficits, Normal 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 FIM Transfers Therapy Code Descriptions/Definitions Functional [place] Measure: 0=Not Assessed/NA 4=Minimal Assistance 1=Total Assistance 5=Supervision or Setup 2=Maximal Assistance 6=Modified [place] 3=Moderate Assistance 7=Complete IndependenceSCALE: Activities may be completed with or without assistive devices. 3-Mwcwpclbth-cqmmmml completes the activity by him/herself with no assistance from a helper. 5-Set-up or Clean-up Assistance-helper sets up or cleans up; patient completes activity. [place] assists only prior to or following the activity. 4-Supervision or Touching Assistance-helper provides verbal cues and/or touching/steadying and/or contact guard assistance as patient completes activity. Assistance may be provided throughout the activity or intermittently. 3-Partial/Moderate Assistance-helper does LESS THAN HALF the effort. [place] lifts, holds or supports trunk or limbs, but provides less than half the effort. 2-Substantial/Maximal Assistance-helper does MORE THAN HALF the effort. [place] lifts or holds trunk or limbs and provides more than half the effort. 1-Bodaftfbf-wnftus does ALL the effort. Patient does none of the effort to complete the activity. Or, the assistance of 2 or more helpers is required for the patient to complete the activity. If activity was not attempted, code reason: 7-Patient Refused. 9-Not Applicable-not attempted and the patient did not perform the activity before the current illness, exacerbation or injury. 10-Not Attempted due to Environmental Limitations-(lack of equipment, weather restraints, etc.). 88-Not Attempted due to Medical Conditions or Safety Concerns. Roll Left to Right (QC): 4 Sit to Lying (QC): 4 (CGA) Sit to Stand (QC): 4 (CGA) Chair/Vom-as-Jvdkh Xfer(QC): 4 (CGA) Car Transfer (QC): 3 Gait Training Does the Patient Walk?: Yes Distance: 300', 120'x2 Walk 10 feet (QC): 4 (CGA) Walk 50 ft with 2 Turns(QC): 4 (GA) Walk 150 ft (QC): 4 (CGA) Walking 10ft/uneven surface-QC: 4 Gait Persons Needed: 1 Gait Assistive Device: FWW Wheelchair Training Does the Pt Use a Wheelchair?: No Stair Training Stair Training: Handrails/: 2 handrails #of Steps: 8 1 Step (curb) (QC): 4 4 Steps (QC): 4 12 Steps (QC): 88 Stairs: Pattern: Step to Balance Picking up an Object (QC): 4 (CGA) ADL-Treatment Eating (QC): 6 (Per pt report, he had no difficulties eating lunch prior to session.) Oral Hygiene (QC): 4 (CGA standing at sink) Bathing Location: L Arm, R Arm, L Upper Leg, R Upper Leg, L Lower Leg (including foot), R Lower Leg (including foot), Chest, Abdomen, Buttocks, Perineal Area Shower/Bathe Self (QC): 4 (CGA during stand at . Pt able to wash all parts. He stood without notice, requiring close supervision during task.) Upper Body Dressing (QC): 5 (set up, pt donned hide puller shirt. ) Lower Body Dressing (QC): 4 (Pt doffed briefs/donning briefs and pants. He required CGA during stand at [facility]. He stood without warning and before walker was placed in front of him. He required close supervision for safety during task. ) On/Off Footwear (QC): 4 (SBA, pt able to doff socks, and don. Pt put sock on half way, stating he thought it was upside down, required verbal cue that he was putting it on correctly. ) Toileting Hygiene (QC): 4 (CGA with clothing management at [facility]. ) Toilet Transfer (QC): 4 (CGA on/off toilet with [facility]) Assessment/Plan Assessment and Plan Assess & Plan/Chief Complaint Assessment: Fall Iliopsoas muscle bleed s/p supratherapeutic INR with labile levels chronically Acute blood loss anemia Dementia Delirium Urinary frequency- UA nl so will trial Pyridium Plan: Monitor pain INR per PCP but will change coumadin to 3mg tonight Dr Egan consultation IRF protocol Fall risk (1) Debility (2) Supratherapeutic INR (3) Acute blood loss anemia Status: Resolved (4) Dementia Status: Chronic (5) Chronic anticoagulation Status: Chronic (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
--- NOTE | 2019-07-13 12:00 | Physical Therapy Daily Note ---
PT Daily Note-Current Subjective Pt agreeable to PT session Pain Numeric Pain Scale: 0-No Pain Appearance Pt in bed upon arrival, awake and alert. At end of session, pt sitting up in recliner with alarm activated, call light phone and bedside table within reach Mental Status Patient Orientation: Person, Place, Time, Eyes Open, Situation Transfers SCALE: Activities may be completed with or without assistive devices. 1-Ohxqggblnz-murtycl completes the activity by him/herself with no assistance from a helper. 5-Set-up or Clean-up Assistance-helper sets up or cleans up; patient completes activity. [place] assists only prior to or following the activity. 4-Supervision or Touching Assistance-helper provides verbal cues and/or touching/steadying and/or contact guard assistance as patient completes activity. Assistance may be provided throughout the activity or intermittently. 3-Partial/Moderate Assistance-helper does LESS THAN HALF the effort. [place] lifts, holds or supports trunk or limbs, but provides less than half the effort. 2-Substantial/Maximal Assistance-helper does MORE THAN HALF the effort. [place] lifts or holds trunk or limbs and provides more than half the effort. 6-Qavrhskmn-srgsuw does ALL the effort. Patient does none of the effort to complete the activity. Or, the assistance of 2 or more helpers is required for the patient to complete the activity. If activity was not attempted, code reason: 7-Patient Refused. 9-Not Applicable-not attempted and the patient did not perform the activity before the current illness, exacerbation or injury. 10-Not Attempted due to Environmental Limitations-(lack of equipment, weather restraints, etc.). 88-Not Attempted due to Medical Conditions or Safety Concerns. Roll Left & Right (QC): 5 Lying to Sitting/Side of Bed(Q: 4 Sit to Stand (QC): 4 Weight Bearing Right Lower Extremity: Right Full Weight Bearing Left Lower Extremity: Left Full Weight Bearing Gait Training Does the Patient Walk?: Yes Distance: 300, 150 Walk 10 feet (QC): 4 Walk 50 ft with 2 Turns(QC): 4 Walk 150 ft (QC): 4 Gait Persons Needed: 1 Gait Assistive Device: FWW kyphotic fwd flexed posture, forward head, slow pace, no LOB, slight path deviation, some fatigue Exercises NuStep Minutes: 10 NuStep Workload: 5 (seat 11, arms 10) Treatments education, safety, bed mobility, gait, transfers, strength, balance, activity tolerance, functional mobility Assessment Current Status: Good Progress noted occasional episodes of slight impulsiveness during therapy session PT Short Term Goals Short Term Goals Time Frame: Jul 16, 2019 Roll Left & Right: 6 Sit to lyin (SBA) Lying to sitting on side of be: 4 (SBA) Sit to stand: 4 (SBA) Chair/dme-py-qwhgv transfer: 4 (SBA) Walk 10 feet: 4 (SBA) Walk 50 feet with two turns: 4 (SBA) Walk 150 feet: 4 (SBA) PT Assisted Goals Assisted Goals PT Assisted Goals Time Frame: Jul 30, 2019 Roll Left & Right (QC): 6 Sit to Lying (QC): 6 Lying-Sitting on Side/Bed(QC): 6 Sit to Stand (QC): 6 Chair/Mle-ar-Rhcui Xfer(QC): 6 Toilet Transfer (QC): 6 Car Transfer (QC): 6 Walk 10 feet (QC): 6 Walk 50ft with 2 Turns (QC): 6 Walk 150 ft (QC): 6 Walking 10ft on Uneven Surface: 6 1 Step (curb) (QC): 4 (SBA) 4 Steps (QC): 4 (SBA) PT Plan Treatment/Plan Treatment Plan: Continue Plan of Care Treatment Plan: Bed Mobility, Education, Functional Activity Bill, Functional Strength, Group Therapy, Gait, Safety, Therapeutic Exercise, Transfers Treatment Duration: Jul 30, 2019 Frequency: At least 5 of 7 days/Wk (IRF) Estimated Hrs Per Day: 1.5 hours per day Patient and/or Family Agrees t: Yes Safety Risks/Education Patient Education: Gait Training, Transfer Techniques, Safety Issues Teaching Recipient: Patient Teaching Methods: Demonstration, Discussion Response to Teaching: Verbalize Understanding, Return Demonstration Time/GCodes Time In: 915 Time Out: 940 Total Billed Treatment Time: 25 Total Billed Treatment 1 visit, EX x10 min, GT x15 min DENY FUNK PTA Jul 13, 2019 12:00
[2019-07-13] MEDS: warFARin 3 MG (COUMADIN) TAB PO SCH (16:40)
[2019-07-13] MEDS: PHENAZOPYRIDINE 100 MG (PYRIDIUM) TABLET PO SCH (16:40)
[2019-07-13] MEDS: rOPINIRole 1 MG (REQUIP) TABLET PO SCH (16:40)
[2019-07-13 16:46] VITALS: BP 148/70
[2019-07-13 17:59] VITALS: BP 148/70
[2019-07-13] MEDS: meTOproloL SUCCINATE 50 MG (TOPROL XL) TAB PO SCH (20:10)
[2019-07-14] MEDS: ALPRAZolam 0.25 MG (XANAX) TAB PO PRN ×2 (00:33→20:22)
[2019-07-14 06:12] VITALS: BP 153/73
[2019-07-14] MEDS: PANTOPRAZOLE 20 MG TABLET (PROTONIX) PO SCH ×2 (09:31→20:23)
[2019-07-14] MEDS: SENNA W/DOCUSATE (SENOKOT S) TABLET PO SCH ×2 (09:31→20:23)
[2019-07-14] MEDS: ACETAMINOPHEN 500 MG TAB (TYLENOL) PO SCH ×2 (09:32→20:23)
[2019-07-14] MEDS: polyethylene glycoL POWDER 17 GM (MIRALAX) PACK PO SCH ×2 (10:11→20:23)
--- NOTE | 2019-07-14 12:12 | PM&R Progress Note ---
Subjective HPI/CC On Admission Date Seen by Provider: Jul 14, 2019 Time Seen by Provider: 12:15 Subjective/Events-last exam Confused at night at times Urinary frequency prompted Pyridium trial and will monitor that progress Telesitter maintained for his safety Uses walker well now and not as impulsive INR 1.7 yesterday so adjusted coumadin and will check labs in morning Denies any pain Conferred with RN Reviewed therapy notes Checked meds and labs Review of Systems General: Fatigue Neurological: Weakness, Confusion Objective Exam Vital Signs Vital Signs Date Time Temp Pulse Resp B/P (MAP) Pulse Ox O2 Delivery O2 Flow Rate FiO2 07/14/19 18:16 36.6 80 18 152/77 (102) 99 Room Air Capillary Refill : Less Than 3 Seconds General Appearance: No Apparent Distress, WD/WN, Chronically ill, Thin, Other (frail) HEENT: PERRL/EOMI, Normal ENT Inspection, Pharynx Normal Neck: Full Range of Motion, Normal Inspection, Non Tender, Supple, Carotid Bruit Respiratory: Chest Non Tender, Lungs Clear, Normal Breath Sounds, No Accessory Muscle Use, No Respiratory Distress Cardiovascular: Regular Rate, Rhythm, No Edema, No Gallop, No JVD, No Murmur, Normal Peripheral Pulses, Other (click) Gastrointestinal: Normal Bowel Sounds, No Organomegaly, No Pulsatile Mass, Non Tender, Soft Back: Normal Inspection, No CVA Tenderness, Decreased Range of Motion Extremity: Normal Capillary Refill, Normal Inspection, Normal Range of Motion, Non Tender, No Calf Tenderness, No Pedal Edema Neurologic/Psychiatric: Alert, Oriented x3, No Motor/Sensory Deficits, Normal Mood/Affect, skein dyer II-XII Norm as Tested, Disoriented (subtle poor recall), Motor Weakness (generalized legs) Skin: Normal Color, Warm/Dry Lymphatic: No Adenopathy Results/Procedures Lab Patient resulted labs reviewed. FIM Transfers Therapy Code Descriptions/Definitions Functional [place] Measure: 0=Not Assessed/NA 4=Minimal Assistance 1=Total Assistance 5=Supervision or Setup 2=Maximal Assistance 6=Modified [place] 3=Moderate Assistance 7=Complete IndependenceSCALE: Activities may be completed with or without assistive devices. 2-Waxovuvntc-oexffvm completes the activity by him/herself with no assistance from a helper. 5-Set-up or Clean-up Assistance-helper sets up or cleans up; patient completes activity. [place] assists only prior to or following the activity. 4-Supervision or Touching Assistance-helper provides verbal cues and/or touching/steadying and/or contact guard assistance as patient completes activity. Assistance may be provided throughout the activity or intermittently. 3-Partial/Moderate Assistance-helper does LESS THAN HALF the effort. [place] lifts, holds or supports trunk or limbs, but provides less than half the effort. 2-Substantial/Maximal Assistance-helper does MORE THAN HALF the effort. [place] lifts or holds trunk or limbs and provides more than half the effort. 4-Ykrjbuzzs-ykoynd does ALL the effort. Patient does none of the effort to complete the activity. Or, the assistance of 2 or more helpers is required for the patient to complete the activity. If activity was not attempted, code reason: 7-Patient Refused. 9-Not Applicable-not attempted and the patient did not perform the activity before the current illness, exacerbation or injury. 10-Not Attempted due to Environmental Limitations-(lack of equipment, weather restraints, etc.). 88-Not Attempted due to Medical Conditions or Safety Concerns. Roll Left to Right (QC): 5 Sit to Lying (QC): 4 (CGA) Sit to Stand (QC): 4 Chair/Txd-hy-Maiob Xfer(QC): 4 (CGA) Car Transfer (QC): 3 Gait Training Does the Patient Walk?: Yes Distance: 300, 150 Walk 10 feet (QC): 4 Walk 50 ft with 2 Turns(QC): 4 Walk 150 ft (QC): 4 Walking 10ft/uneven surface-QC: 4 Gait Persons Needed: 1 Gait Assistive Device: FWW Wheelchair Training Does the Pt Use a Wheelchair?: No Stair Training Stair Training: Handrails/: 2 handrails #of Steps: 8 1 Step (curb) (QC): 4 4 Steps (QC): 4 12 Steps (QC): 88 Stairs: Pattern: Step to Balance Picking up an Object (QC): 4 (CGA) ADL-Treatment Eating (QC): 6 (Per pt report, he had no difficulties eating lunch prior to session.) Oral Hygiene (QC): 4 (CGA standing at sink) Bathing Location: L Arm, R Arm, L Upper Leg, R Upper Leg, L Lower Leg (including foot), R Lower Leg (including foot), Chest, Abdomen, Buttocks, Perineal Area Shower/Bathe Self (QC): 4 (CGA during stand at . Pt able to wash all parts. 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 ) Lower Body Dressing (QC): 4 (Pt doffed briefs/donning briefs and pants. He required CGA during stand at [facility]. He stood without warning and before walker was placed in front of him. He required close supervision for safety during task. ) On/Off Footwear (QC): 4 (SBA, pt able to doff socks, and don. Pt put sock on half way, stating he thought it was upside down, required verbal cue that he was putting it on correctly. ) Toileting Hygiene (QC): 4 (CGA with clothing management at [facility]. ) Toilet Transfer (QC): 4 (CGA on/off toilet with [facility]) Assessment/Plan Assessment and Plan Assess & Plan/Chief Complaint Assessment: Fall Iliopsoas muscle bleed s/p supratherapeutic INR with labile levels chronically Acute blood loss anemia Dementia Delirium Urinary frequency- UA nl so will trial Pyridium Plan: Monitor pain INR per PCP but will change coumadin to 3mg Dr Egan consultation IRF protocol Fall risk (1) Debility (2) Supratherapeutic INR (3) Acute blood loss anemia Status: Resolved (4) Dementia Status: Chronic (5) Chronic anticoagulation Status: Chronic (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
[2019-07-14] MEDS: rOPINIRole 1 MG (REQUIP) TABLET PO SCH (17:12)
[2019-07-14] MEDS: warFARin 3 MG (COUMADIN) TAB PO SCH (17:12)
[2019-07-14] MEDS: PHENAZOPYRIDINE 100 MG (PYRIDIUM) TABLET PO SCH (17:12)
[2019-07-14 18:16] VITALS: BP 152/77
[2019-07-14] MEDS: meTOproloL SUCCINATE 50 MG (TOPROL XL) TAB PO SCH (20:23)
[2019-07-14] MEDS: MELATONIN 3 MG TABLET PO PRN (20:23)
[2019-07-15 05:47] VITALS: BP 159/79
[2019-07-15 07:27] LABS: BASOPHILS % (AUTO) 0 % (0-10); EOSINOPHILS # (AUTO) 0.1 10^3/uL (0.0-0.3); EOSINOPHILS % (AUTO) 1 % (0-10); HEMATOCRIT 37 % (40-54); HEMOGLOBIN 11.6 G/DL (13.3-17.7); LYMPHOCYTES # (AUTO) 0.7 X 10^3 (1.0-4.0); LYMPHOCYTES % (AUTO) 15 % (12-44); MEAN CORPUSCULAR HEMOGLOBIN 33 PG (25-34); MEAN CORPUSCULAR HGB CONC 32 G/DL (32-36); MEAN CORPUSCULAR VOLUME 105 FL (80-99); MEAN PLATELET VOLUME 9.9 FL (7.4-10.4); MONOCYTES # (AUTO) 0.5 X 10^3 (0.0-1.0); MONOCYTES % (AUTO) 11 % (0-12); NEUTROPHILS # (AUTO) 3.3 X 10^3 (1.8-7.8); NEUTROPHILS % (AUTO) 73 % (42-75); PLATELET COUNT 314 10^3/uL (130-400); WHITE BLOOD COUNT 4.6 10^3/uL (4.3-11.0)
[2019-07-15 07:47] LABS: INR 1.6 (0.8-1.4); PROTHROMBIN TIME PATIENT 19.2 SEC (12.2-14.7)
[2019-07-15 07:56] LABS: ALANINE AMINOTRANSFERASE 43 U/L (0-55); ALBUMIN 3.6 GM/DL (3.2-4.5); ALKALINE PHOSPHATASE 52 U/L (40-136); BUN/CREATININE RATIO 36; CARBON DIOXIDE 29 MMOL/L (21-32); CHLORIDE 106 MMOL/L (98-107); GFR ESTIMATED > 60; GLUCOSE 78 MG/DL (70-105); POTASSIUM 4.2 MMOL/L (3.6-5.0); SODIUM 142 MMOL/L (135-145); TOTAL PROTEIN 5.9 GM/DL (6.4-8.2)
--- NOTE | 2019-07-15 08:50 | Occupational Ther Daily Note ---
OT Current Status-Daily Note Subjective Pt seated upright in recliner at start of session, agreeable to OT tx in therapy gym. He denied wanting to shower at this time. Pain Numeric Pain Scale: 0-No Pain ADL-Treatment Therapy Code Descriptions/Definitions Functional [place] Measure: 0=Not Assessed/NA 4=Minimal Assistance 1=Total Assistance 5=Supervision or Setup 2=Maximal Assistance 6=Modified [place] 3=Moderate Assistance 7=Complete IndependenceSCALE: Activities may be completed with or without assistive devices. 6-Ddcyazajjm-dzfrmrp completes the activity by him/herself with no assistance from a helper. 5-Set-up or Clean-up Assistance-helper sets up or cleans up; patient completes activity. [place] assists only prior to or following the activity. 4-Supervision or Touching Assistance-helper provides verbal cues and/or touching/steadying and/or contact guard assistance as patient completes activity. Assistance may be provided throughout the activity or intermittently. 3-Partial/Moderate Assistance-helper does LESS THAN HALF the effort. [place] lifts, holds or supports trunk or limbs, but provides less than half the effort. 2-Substantial/Maximal Assistance-helper does MORE THAN HALF the effort. [place] lifts or holds trunk or limbs and provides more than half the effort. 4-Csglhqtcf-oebivh does ALL the effort. Patient does none of the effort to complete the activity. Or, the assistance of 2 or more helpers is required for the patient to complete the activity. If activity was not attempted, code reason: 7-Patient Refused. 9-Not Applicable-not attempted and the patient did not perform the activity before the current illness, exacerbation or injury. 10-Not Attempted due to Environmental Limitations-(lack of equipment, weather restraints, etc.). 88-Not Attempted due to Medical Conditions or Safety Concerns. Oral Hygiene (QC): 4 (SBA standing at sink with FWW.) Shower/Bathe Self (QC): 7 (Pt declined showering this AM) Upper Body Dressing (QC): 3 (Min A - pt donned extractor puller sweater, requiring min A to manage shirt down over his back. ) Lower Body Dressing (QC): 3 (Pt able to don pants, required min A with suspenders & CGA during stand at [facility].) Toileting Hygiene (QC): 4 (CGA during clothing management at [facility]) Toilet Transfer (QC): 4 (CGA) Other Treatment Pt seated in recliner, agreeable to OT tx in therapy area. He declined showering this AM. He donned his pants at recliner, then completed toileting and oral hygiene. Pt returned to the recliner where he donned his shirt. During ADL tx, pt slightly impulsive, attempting to stand before walker was set up in front of him. Once pt was dressed, he performed functional mobility to therapy area, CGA with [facility]. In order to increase fine motor strength, pt placed/removed graded clothespins (ranging 1-5 lbs) with R & LUEs, x2 sets each. He took a rest break, then placed/removed 1" pegs from pegboard, x100 pegs, 1lb wrist cuffs on each wrist, alternating hands. Pt took 1 rest break during task. Pt then returned to his room. Post OT session, pt seated in recliner, call light in reach and all needs met, chair alarm on. Education OT Patient Education: Correct positioning, Energy conservation, Exercise program, Modified ADL techniques, Progress toward Goal/Update tx plan, Purpose of tx/functional activities, Safety issues, Transfer techniques Teaching Recipient: Patient Teaching Methods: Discussion Response to Teaching: Verbalize Understanding, Reinforcement Needed OT Short Term Goals Short Term Goals Time Frame: Jul 24, 2019 Shower/bathe self: 5 Upper body dressin Lower body dressin OT Correction Goals Director Of Vocational Guidance Goals Time Frame: Aug 02, 2019 Eating (QC): 6 Oral Hygiene (QC): 6 Toileting Hygiene (QC): 6 Shower/Bathe Self (QC): 6 Upper Body Dressing (QC): 6 Lower Body Dressing (QC): 6 On/Off Footwear (QC): 6 Additional Goals: 1-Demonstrate ADL Tasks, 2-Verbalize Understanding, 3- ImproveStrength/Bill 1=Demonstrate adherence to instructed precautions during ADL tasks. 2=Patient will verbalize/demonstrate understanding of assistive devices/modifications for ADL. 3=Patient will improve strength/tolerance for activity to enable patient to perform ADL's. OT Education/Plan Problem List/Assessment Assessment: Decreased Activ Tolerance, Decreased Safety Aware, Decreased UE Strength, Impaired Funct Balance, Impaired I ADL's, Impaired Self-Care Skills, Restricted Funct UE ROM Discharge Recommendations Plan/Recommendations: Continue POC Treatment Plan/Plan of Care Patient would benefit from OT for education, treatment and training to promote independence in ADL's, mobility, safety and/or upper extremity function for ADL's. Plan of Care: ADL Retraining, Functional Mobility, Group Exercise/Act as Ind, UE Funct Exercise/Act Treatment Duration: Aug 02, 2019 Frequency: At least 5 of 7 days/Wk (IRF) Estimated Hrs Per Day: 1.5 hours per day Agreement: Yes Rehab Potential: Fair Time/GCodes Start Time: 08:00 Stop Time: 09:00 Total Time Billed (hr/min): 60 Billed Treatment Time 1, ADL (15'), FA 3 (45') [address] OT Jul 15, 2019 08:50
[2019-07-15] MEDS: SENNA W/DOCUSATE (SENOKOT S) TABLET PO SCH ×2 (09:06→20:36)
[2019-07-15] MEDS: PANTOPRAZOLE 20 MG TABLET (PROTONIX) PO SCH ×2 (09:06→20:35)
[2019-07-15] MEDS: ACETAMINOPHEN 500 MG TAB (TYLENOL) PO SCH ×2 (09:06→20:34)
[2019-07-15] MEDS: polyethylene glycoL POWDER 17 GM (MIRALAX) PACK PO SCH ×2 (09:06→20:36)
--- NOTE | 2019-07-15 09:32 | Speech Therapy Daily Note ---
Speech Daily Progress Note Subjective Date Seen by Provider: Jul 15, 2019 Time Seen by Provider: 00:15 Patient was pleasant and worked well with ST. Objective Patient completed a series of q/a related to recall of weekend events with 75% given minimal cues. Assessment Assessment Current Status: Good Progress Treatment Plan Continue Plan of Care Speech Short Term Goals Short Term Goals Short Term Goals 1) The patient will complete memory tasks related to his daily needs at 80% or greater. 2) The patient will complete problem solving tasks related to his daily needs at 80% or greater. 3) The patient will complete safety awareness tasks related to his daily needs at 80% or greater. Speech Hydraulic Bull Riveter Operator Goals Hydraulic Bull Riveter Operator Goals Patient will improve cognitive-communication necessary for safety and daily living tasks with minimal assist. Speech-Plan Patient/Family Goals Patient/Family Goals: Patient plans on returning home where he lives with his . Treatment Plan Speech Therapy Treatment Plan: Continue Plan of Care Treatment Duration: Jul 09, 2019 Frequency: 5 times per week Estimated Hrs Per Day: .5 hour per day Rehab Potential: Fair Barriers to Learning: Patient has moderate deficits. Pt/Family Agrees to Plan: Yes Safety Risks/Education Teaching Recipient: Patient Teaching Methods: Demonstration, Discussion Response to Teaching: Verbalize Understanding, Return Demonstration Education Topics Provided: Safety within his room and communication of wants/needs. Time Speech Therapy Time In: 09:15 Speech Therapy Time Out: 09:30 Total Billed Time: 15 Billed Treatment Time 1, SLICK Trejo Jul 15, 2019 09:32
--- NOTE | 2019-07-15 10:05 | PM&R Progress Note ---
Subjective HPI/CC On Admission Date Seen by Provider: Jul 15, 2019 Time Seen by Provider: 10:00 Subjective/Events-last exam Confused at night at times Urinary frequency helped by Pyridium Telesitter maintained for his safety Uses walker well now and not as impulsive INR 1.6 today so adjusted coumadin per PCP Denies any pain Conferred with RN Reviewed therapy notes Checked meds and labs Review of Systems General: Fatigue Neurological: Weakness, Confusion Objective Exam Vital Signs Vital Signs Date Time Temp Pulse Resp B/P (MAP) Pulse Ox O2 Delivery O2 Flow Rate FiO2 07/15/19 18:00 36.6 68 18 150/78 (102) 100 Room Air Capillary Refill : Less Than 3 Seconds General Appearance: No Apparent Distress, WD/WN, Chronically ill, Thin, Other (frail) HEENT: PERRL/EOMI, Normal ENT Inspection, Pharynx Normal Neck: Full Range of Motion, Normal Inspection, Non Tender, Supple, Carotid Bruit Respiratory: Chest Non Tender, Lungs Clear, Normal Breath Sounds, No Accessory Muscle Use, No Respiratory Distress Cardiovascular: Regular Rate, Rhythm, No Edema, No Gallop, No JVD, No Murmur, Normal Peripheral Pulses, Other (click) Gastrointestinal: Normal Bowel Sounds, No Organomegaly, No Pulsatile Mass, Non Tender, Soft Back: Normal Inspection, No CVA Tenderness, Decreased Range of Motion Extremity: Normal Capillary Refill, Normal Inspection, Normal Range of Motion, Non Tender, No Calf Tenderness, No Pedal Edema Neurologic/Psychiatric: Alert, Oriented x3, No Motor/Sensory Deficits, Normal Mood/Affect, piper helper II-XII Norm as Tested, Disoriented (subtle poor recall), Motor Weakness (generalized legs) Skin: Normal Color, Warm/Dry Lymphatic: No Adenopathy Results/Procedures Lab Laboratory Tests 07/15/19 05:40 Patient resulted labs reviewed. FIM Transfers Therapy Code Descriptions/Definitions Functional [place] Measure: 0=Not Assessed/NA 4=Minimal Assistance 1=Total Assistance 5=Supervision or Setup 2=Maximal Assistance 6=Modified [place] 3=Moderate Assistance 7=Complete IndependenceSCALE: Activities may be completed with or without assistive devices. 7-Jmqecwwjga-lvotfag completes the activity by him/herself with no assistance from a helper. 5-Set-up or Clean-up Assistance-helper sets up or cleans up; patient completes activity. [place] assists only prior to or following the activity. 4-Supervision or Touching Assistance-helper provides verbal cues and/or touching /steadying and/or contact guard assistance as patient completes activity. Assistance may be provided throughout the activity or intermittently. 3-Partial/Moderate Assistance-helper does LESS THAN HALF the effort. [place] lifts, holds or supports trunk or limbs, but provides less than half the effort. 2-Substantial/Maximal Assistance-helper does MORE THAN HALF the effort. [place] lifts or holds trunk or limbs and provides more than half the effort. 5-Rsgljdfij-mbsxvp does ALL the effort. Patient does none of the effort to complete the activity. Or, the assistance of 2 or more helpers is required for the patient to complete the activity. If activity was not attempted, code reason: 7-Patient Refused. 9-Not Applicable-not attempted and the patient did not perform the activity before the current illness, exacerbation or injury. 10-Not Attempted due to Environmental Limitations-(lack of equipment, weather restraints, etc.). 88-Not Attempted due to Medical Conditions or Safety Concerns. Roll Left to Right (QC): 5 Sit to Lying (QC): 4 (CGA) Sit to Stand (QC): 4 Chair/Zpv-ib-Wvuwn Xfer(QC): 4 (CGA) Car Transfer (QC): 3 Gait Training Does the Patient Walk?: Yes Distance: 300, 150 Walk 10 feet (QC): 4 Walk 50 ft with 2 Turns(QC): 4 Walk 150 ft (QC): 4 Walking 10ft/uneven surface-QC: 4 Gait Persons Needed: 1 Gait Assistive Device: FWW Wheelchair Training Does the Pt Use a Wheelchair?: No Stair Training Stair Training: Handrails/: 2 handrails #of Steps: 8 1 Step (curb) (QC): 4 4 Steps (QC): 4 12 Steps (QC): 88 Stairs: Pattern: Step to Balance Picking up an Object (QC): 4 (CGA) ADL-Treatment Eating (QC): 6 (Per pt report, he had no difficulties eating lunch prior to session.) Oral Hygiene (QC): 4 (SBA standing at sink with FWW.) Bathing Location: L Arm, R Arm, L Upper Leg, R Upper Leg, L Lower Leg (including foot), R Lower Leg (including foot), Chest, Abdomen, Buttocks, Perineal Area Shower/Bathe Self (QC): 7 (Pt declined showering this AM) Upper Body Dressing (QC): 3 (Min A - pt donned ticket puller sweater, requiring min A to manage shirt down over his back. ) Lower Body Dressing (QC): 3 (Pt able to don pants, required min A with suspenders & CGA during stand at [facility].) On/Off Footwear (QC): 4 (SBA, pt able to doff socks, and don. Pt put sock on half way, stating he thought it was upside down, required verbal cue that he was putting it on correctly. ) Toileting Hygiene (QC): 4 (CGA during clothing management at [facility]) Toilet Transfer (QC): 4 (CGA) Assessment/Plan Assessment and Plan Assess & Plan/Chief Complaint Assessment: Fall Iliopsoas muscle bleed s/p supratherapeutic INR with labile levels chronically Acute blood loss anemia Dementia Delirium Urinary frequency- Pyridium HS has helped Plan: Monitor pain INR per PCP Dr Egan consultation IRF protocol Fall risk (1) Debility (2) Supratherapeutic INR (3) Acute blood loss anemia Status: Resolved (4) Dementia Status: Chronic (5) Chronic anticoagulation Status: Chronic (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
--- NOTE | 2019-07-15 10:38 | Physical Therapy Daily Note ---
PT Daily Note-Current Subjective Pt sitting in recliner upon arrival. Pt agrees to PT. Pt asks to use restroom at beginning of Rx. Pain Location: No Pain Reported Mental Status Patient Orientation: Person, Confused, Place Transfers SCALE: Activities may be completed with or without assistive devices. 3-Cerizqiprg-lsqhcqb completes the activity by him/herself with no assistance from a helper. 5-Set-up or Clean-up Assistance-helper sets up or cleans up; patient completes activity. [place] assists only prior to or following the activity. 4-Supervision or Touching Assistance-helper provides verbal cues and/or touching/steadying and/or contact guard assistance as patient completes activity. Assistance may be provided throughout the activity or intermittently. 3-Partial/Moderate Assistance-helper does LESS THAN HALF the effort. [place] lifts, holds or supports trunk or limbs, but provides less than half the effort. 2-Substantial/Maximal Assistance-helper does MORE THAN HALF the effort. [place] lifts or holds trunk or limbs and provides more than half the effort. 4-Inoepeqnn-jrvylp does ALL the effort. Patient does none of the effort to complete the activity. Or, the assistance of 2 or more helpers is required for the patient to complete the activity. If activity was not attempted, code reason: 7-Patient Refused. 9-Not Applicable-not attempted and the patient did not perform the activity before the current illness, exacerbation or injury. 10-Not Attempted due to Environmental Limitations-(lack of equipment, weather restraints, etc.). 88-Not Attempted due to Medical Conditions or Safety Concerns. Sit to Stand (QC): 5 Toilet Transfer (QC): 5 Weight Bearing Right Lower Extremity: Right Full Weight Bearing Left Lower Extremity: Left Full Weight Bearing Gait Training Does the Patient Walk?: Yes Distance: 150' Walk 10 feet (QC): 4 Walk 50 ft with 2 Turns(QC): 4 Walk 150 ft (QC): 4 Gait Persons Needed: 1 Gait Assistive Device: FWW FRENCH WEAVER gives VC to walk closer to FWW. Wheelchair Training Does the Pt Use a Wheelchair?: No Exercises Seated Therapy Exercises: Ankle pumps, Long arc quads, Hip flexion, Kicking activity, Hip abd/add Seated Reps: 15 Standing: Hamstring curls, Heel/toe raises, Marching, Mini squats, Weight shifts Standing Reps: 15 NuStep Minutes: 12 NuStep Workload: 4 Treatments Pt transfers to standing and uses restroom. Pt ambulates in hallway then uses NuStep for 12m at WL 4. Pt completes both Seated Ex & Standing EX at //bars. Pt returns to room to rest in recliner with all needs met, call light in hand. Assessment Current Status: Fair Progress Pt still demonstrates difficulty with safety at times and demonstrates confusion, needing redirection for sequencing. PT Short Term Goals Short Term Goals Time Frame: Jul 16, 2019 Roll Left & Right: 6 Sit to lyin (SBA) Lying to sitting on side of be: 4 (SBA) Sit to stand: 4 (SBA) Chair/rig-mn-aptkw transfer: 4 (SBA) Walk 10 feet: 4 (SBA) Walk 50 feet with two turns: 4 (SBA) Walk 150 feet: 4 (SBA) PT Correction Goals Correction Goals PT Correction Goals Time Frame: Jul 30, 2019 Roll Left & Right (QC): 6 Sit to Lying (QC): 6 Lying-Sitting on Side/Bed(QC): 6 Sit to Stand (QC): 6 Chair/Bzq-js-Ilbow Xfer(QC): 6 Toilet Transfer (QC): 6 Car Transfer (QC): 6 Walk 10 feet (QC): 6 Walk 50ft with 2 Turns (QC): 6 Walk 150 ft (QC): 6 Walking 10ft on Uneven Surface: 6 1 Step (curb) (QC): 4 (SBA) 4 Steps (QC): 4 (SBA) PT Plan Problem List Problem List: Activity Tolerance, Safety, Gait Treatment/Plan Treatment Plan: Continue Plan of Care Treatment Plan: Bed Mobility, Education, Functional Activity Bill, Functional Strength, Group Therapy, Gait, Safety, Therapeutic Exercise, Transfers Treatment Duration: Jul 30, 2019 Frequency: At least 5 of 7 days/Wk (IRF) Estimated Hrs Per Day: 1.5 hours per day Patient and/or Family Agrees t: Yes Safety Risks/Education Patient Education: Gait Training, Transfer Techniques, Correct Positioning, S afety Issues Teaching Recipient: Patient Teaching Methods: Discussion Response to Teaching: Reinforcement Needed Time/GCodes Time In: 930 Time Out: 1030 Total Billed Treatment Time: 60 Total Billed Treatment 1, GT (15m), EX x2 (35m) & FA (10m) SUSY MELVIN FRENCH WEAVER Jul 15, 2019 10:37
--- NOTE | 2019-07-15 10:41 | Occupational Ther Daily Note ---
OT Current Status-Daily Note Subjective Pt seated in chair in therapy area post PT tx. Mental Status/Objective Patient Orientation: Confused ADL-Treatment Therapy Code Descriptions/Definitions Functional [place] Measure: 0=Not Assessed/NA 4=Minimal Assistance 1=Total Assistance 5=Supervision or Setup 2=Maximal Assistance 6=Modified [place] 3=Moderate Assistance 7=Complete IndependenceSCALE: Activities may be completed with or without assistive devices. 0-Vzbqwevjul-gcvgxit completes the activity by him/herself with no assistance from a helper. 5-Set-up or Clean-up Assistance-helper sets up or cleans up; patient completes activity. [place] assists only prior to or following the activity. 4-Supervision or Touching Assistance-helper provides verbal cues and/or touching/steadying and/or contact guard assistance as patient completes activity. Assistance may be provided throughout the activity or intermittently. 3-Partial/Moderate Assistance-helper does LESS THAN HALF the effort. [place] lifts, holds or supports trunk or limbs, but provides less than half the effort. 2-Substantial/Maximal Assistance-helper does MORE THAN HALF the effort. [place] lifts or holds trunk or limbs and provides more than half the effort. 1-Tgrjkbaaa-cxdqzk does ALL the effort. Patient does none of the effort to complete the activity. Or, the assistance of 2 or more helpers is required for the patient to complete the activity. If activity was not attempted, code reason: 7-Patient Refused. 9-Not Applicable-not attempted and the patient did not perform the activity before the current illness, exacerbation or injury. 10-Not Attempted due to Environmental Limitations-(lack of equipment, weather restraints, etc.). 88-Not Attempted due to Medical Conditions or Safety Concerns. On/Off Footwear: 3 (Pt doffed slipper socks, donned regular socks, then donned shoes. OT educated pt on long handled shoe horn, he attempted using AE with R shoe but unsuccessful with sequencing of task with max verbal/tactile cues. OT assisted pt with R shoe don/tying, pt able to complete L shoe without difficulty.) Other Treatment Pt donned shoes/socks in therapy area, seated in chair. OT educated pt on using long handled shoe horn in order to don R shoe, pt attempted but was unsuccessful with using AE with max verbal/tactile cues. In order to increase BUE strength and functional endurance, pt completed arm bike, x15 mins, mod resistance. Pt slightly confused during task, he reports this is the 3rd time he has used the arm bike today. OT educated pt that this was not complete in the morning OT session, but pt reports someone got him up first thing this morning to do it. Pt required multiple rest breaks during task. Pt returned to his room using FWW with CGA, he attempted to go into a room next to his, requiring verbal cue "I don't think this is your room". He then kept walking to the next room which was his. Post OT session, pt seated in recliner, call light in reach and all needs met. Education OT Patient Education: Correct positioning, Energy conservation, Exercise program, Modified ADL techniques, Progress toward Goal/Update tx plan, Purpose of tx/functional activities, Safety issues, Transfer techniques Teaching Recipient: Patient Teaching Methods: Discussion Response to Teaching: Verbalize Understanding OT Short Term Goals Short Term Goals Time Frame: Jul 24, 2019 Shower/bathe self: 5 Upper body dressin Lower body dressin OT Group Home Goals Fruit Peeler Goals Time Frame: Aug 02, 2019 Eating (QC): 6 Oral Hygiene (QC): 6 Toileting Hygiene (QC): 6 Shower/Bathe Self (QC): 6 Upper Body Dressing (QC): 6 Lower Body Dressing (QC): 6 On/Off Footwear (QC): 6 Additional Goals: 1-Demonstrate ADL Tasks, 2-Verbalize Understanding, 3- ImproveStrength/Bill 1=Demonstrate adherence to instructed precautions during ADL tasks. 2=Patient will verbalize/demonstrate understanding of assistive devices/modifications for ADL. 3=Patient will improve strength/tolerance for activity to enable patient to perform ADL's. OT Education/Plan Problem List/Assessment Assessment: Decreased Activ Tolerance, Decreased Safety Aware, Decreased UE Strength, Impaired Cognition, Impaired Funct Balance, Impaired I ADL's, Impaired Self-Care Skills Discharge Recommendations Plan/Recommendations: Continue POC Treatment Plan/Plan of Care Patient would benefit from OT for education, treatment and training to promote independence in ADL's, mobility, safety and/or upper extremity function for ADL's. Plan of Care: ADL Retraining, Functional Mobility, Group Exercise/Act as Ind, UE Funct Exercise/Act Treatment Duration: Aug 02, 2019 Frequency: At least 5 of 7 days/Wk (IRF) Estimated Hrs Per Day: 1.5 hours per day Agreement: Yes Rehab Potential: Fair Time/GCodes Start Time: 10:30 Stop Time: 11:00 Total Time Billed (hr/min): 30 Billed Treatment Time 1, ADL (10'), EX (20') [address] OT Jul 15, 2019 10:41
--- NOTE | 2019-07-15 12:13 | Progress Note ---
PREM NOLEN,MED STUDENT 07/15/19 1213: Progress Note IRF Course Mr. Seay is an 84yo male who was admitted to IRF after inpatient stay for anemia due to intramuscular bleeding from an increased INR. Before admission, he lived at an assisted living community and was independent. Since beginning inpatient rehabilitation, he has worked with PT and OT with the goal of regaining his independence in order to return to the assisted living community. He has focused on mobility, activity tolerance, and general strength. Today he denies any complaints and believes he is improving. He states he feels stronger and expresses a desire to return home. Per PT, he has shown some impulsiveness with ambulation during therapy, but this has improved and he is ambulating well with a walker. He continues to show some fatigue with ambulation and walks with at a slow pace. He is able to transfer from bed to stand with assistance. He is improving, but would benefit from another 2-3 days of PT before returning home. NIKKI BURLESON DO 07/15/19 1940: Supervisory-Addendum Brief Verification & Attestation Participated in pt care: history, MDM, physical Personally performed: exam, history, MDM, supervision of care Care discussed with: Medical Student Procedures: n/a Results interpretation: Verified all documentation Verification and Attestation of Medical Student E/M Service A medical student performed and documented this service in my presence. I rev iewed and verified all information documented by the medical student and made modifications to such information, when appropriate. I personally performed the physical exam and medical decision making. Nikki Burleson Jul 15, 2019,19:40 PREM NOLEN,MED STUDENT Jul 15, 2019 12:13 NIKKI BURLESON DO Jul 15, 2019 19:40
--- NOTE | 2019-07-15 14:07 | Physical Therapy Daily Note ---
PT Daily Note-Current Subjective Pt sitting in recliner upon arrival. Pt agrees to walk with TAX INTERN for Rx. Pain Location: No Pain Reported Mental Status Patient Orientation: Person, Confused, Place Transfers SCALE: Activities may be completed with or without assistive devices. 0-Rsegstlzna-stxpfdu completes the activity by him/herself with no assistance from a helper. 5-Set-up or Clean-up Assistance-helper sets up or cleans up; patient completes activity. [place] assists only prior to or following the activity. 4-Supervision or Touching Assistance-helper provides verbal cues and/or touching/steadying and/or contact guard assistance as patient completes activity. Assistance may be provided throughout the activity or intermittently. 3-Partial/Moderate Assistance-helper does LESS THAN HALF the effort. [place] lifts, holds or supports trunk or limbs, but provides less than half the effort. 2-Substantial/Maximal Assistance-helper does MORE THAN HALF the effort. [place] lifts or holds trunk or limbs and provides more than half the effort. 1-Bqmxnjbna-biykqk does ALL the effort. Patient does none of the effort to complete the activity. Or, the assistance of 2 or more helpers is required for the patient to complete the activity. If activity was not attempted, code reason: 7-Patient Refused. 9-Not Applicable-not attempted and the patient did not perform the activity before the current illness, exacerbation or injury. 10-Not Attempted due to Environmental Limitations-(lack of equipment, weather restraints, etc.). 88-Not Attempted due to Medical Conditions or Safety Concerns. Sit to Stand (QC): 5 Weight Bearing Right Lower Extremity: Right Full Weight Bearing Left Lower Extremity: Left Full Weight Bearing Gait Training Does the Patient Walk?: Yes Distance: 400' Walk 10 feet (QC): 5 Walk 50 ft with 2 Turns(QC): 5 Walk 150 ft (QC): 5 Gait Persons Needed: 1 Gait Assistive Device: FWW Wheelchair Training Does the Pt Use a Wheelchair?: No Treatments Pt transfers to standing and ambulates in hallway, taking RB as needed. Pt returns to room at end of Rx to rest in recliner. Pt has all needs met, call light in hand. Assessment Current Status: Good Progress Pt remains confused at times & needs redirection to complete tasks especially concerning safety. PT Short Term Goals Short Term Goals Time Frame: Jul 16, 2019 Roll Left & Right: 6 Sit to lyin (SBA) Lying to sitting on side of be: 4 (SBA) Sit to stand: 4 (SBA) Chair/uqc-fd-bbzyr transfer: 4 (SBA) Walk 10 feet: 4 (SBA) Walk 50 feet with two turns: 4 (SBA) Walk 150 feet: 4 (SBA) PT Import/Export Specialist Goals Import/Export Specialist Goals PT Care Home Goals Time Frame: Jul 30, 2019 Roll Left & Right (QC): 6 Sit to Lying (QC): 6 Lying-Sitting on Side/Bed(QC): 6 Sit to Stand (QC): 6 Chair/Kkv-cg-Uxgnp Xfer(QC): 6 Toilet Transfer (QC): 6 Car Transfer (QC): 6 Walk 10 feet (QC): 6 Walk 50ft with 2 Turns (QC): 6 Walk 150 ft (QC): 6 Walking 10ft on Uneven Surface: 6 1 Step (curb) (QC): 4 (SBA) 4 Steps (QC): 4 (SBA) PT Plan Problem List Problem List: Activity Tolerance, Safety, Gait Treatment/Plan Treatment Plan: Continue Plan of Care Treatment Plan: Bed Mobility, Education, Functional Activity Bill, Functional Strength, Group Therapy, Gait, Safety, Therapeutic Exercise, Transfers Treatment Duration: Jul 30, 2019 Frequency: At least 5 of 7 days/Wk (IRF) Estimated Hrs Per Day: 1.5 hours per day Patient and/or Family Agrees t: Yes Safety Risks/Education Patient Education: Gait Training, Transfer Techniques, Correct Positioning, Safety Issues Teaching Recipient: Patient Teaching Methods: Discussion Response to Teaching: Reinforcement Needed Time/GCodes Time In: 1330 Time Out: 1400 Total Billed Treatment Time: 30 Total Billed Treatment 1, GT x2 (30m) SUSY MELVIN PTA Jul 15, 2019 14:07
[2019-07-15 17:00] VITALS: BP 135/75
[2019-07-15] MEDS: PHENAZOPYRIDINE 100 MG (PYRIDIUM) TABLET PO SCH (17:16)
[2019-07-15] MEDS: warFARin 3 MG (COUMADIN) TAB PO SCH (17:16)
[2019-07-15] MEDS: rOPINIRole 1 MG (REQUIP) TABLET PO SCH (17:16)
[2019-07-15 18:00] VITALS: BP 150/78
--- NOTE | 2019-07-15 19:08 | NUR ---
report received from ANA AGUIRRE, assume care of pt
[2019-07-15 20:30] VITALS: BP 124/68
[2019-07-15] MEDS: meTOproloL SUCCINATE 50 MG (TOPROL XL) TAB PO SCH (20:34)
--- NOTE | 2019-07-15 20:34 | NUR ---
refused miralax & Senokot, up with 1 person assist & walker, side rails up x4, bed alarm on tele sitter on
[2019-07-15] MEDS: MELATONIN 3 MG TABLET PO PRN (20:35)
[2019-07-16 06:00] VITALS: BP 150/73
--- NOTE | 2019-07-16 08:25 | Occupational Ther Daily Note ---
OT Current Status-Daily Note Subjective Pt seated upright in chair. OT encouraged pt to participate in ADL session, but pt did not want to. He stated he believes he is going home today, pointing to a chair where he has been gathering his belongings in one location. He reports he would like to wait to shower until he is home again. OT told pt that she had not heard that he was leaving yet, but would like him to complete ADLs before he left. Pt still refused ADLs this AM, with mod encouragement, pt agreed to completing ADLs tomorrow morning. Pain Numeric Pain Scale: 0-No Pain Mental Status/Objective Patient Orientation: Confused ADL-Treatment Therapy Code Descriptions/Definitions Functional [place] Measure: 0=Not Assessed/NA 4=Minimal Assistance 1=Total Assistance 5=Supervision or Setup 2=Maximal Assistance 6=Modified [place] 3=Moderate Assistance 7=Complete IndependenceSCALE: Activities may be completed with or without assistive devices. 7-Kfnqptlmuh-xvjhgpx completes the activity by him/herself with no assistance from a helper. 5-Set-up or Clean-up Assistance-helper sets up or cleans up; patient completes activity. [place] assists only prior to or following the activity. 4-Supervision or Touching Assistance-helper provides verbal cues and/or touching/steadying and/or contact guard assistance as patient completes activity. Assistance may be provided throughout the activity or intermittently. 3-Partial/Moderate Assistance-helper does LESS THAN HALF the effort. [place] lifts, holds or supports trunk or limbs, but provides less than half the effort. 2-Substantial/Maximal Assistance-helper does MORE THAN HALF the effort. [place] lifts or holds trunk or limbs and provides more than half the effort. 5-Qsalvzxhm-jraley does ALL the effort. Patient does none of the effort to comp lete the activity. Or, the assistance of 2 or more helpers is required for the patient to complete the activity. If activity was not attempted, code reason: 7-Patient Refused. 9-Not Applicable-not attempted and the patient did not perform the activity before the current illness, exacerbation or injury. 10-Not Attempted due to Environmental Limitations-(lack of equipment, weather restraints, etc.). 88-Not Attempted due to Medical Conditions or Safety Concerns. Eating (QC): 7 Oral Hygiene (QC): 7 Shower/Bathe Self (QC): 7 Upper Body Dressing (QC): 7 Lower Body Dressing (QC): 7 On/Off Footwear: 7 Toileting Hygiene (QC): 7 Toilet Transfer (QC): 7 OT attempted to complete ADL session today, pt adamantly refused with mod encouragement. He agreed to complete tomorrow morning with OT. Other Treatment Pt seated in recliner, declined ADLs. He performed functional mobility to therapy area using FWW with CGA. In order to increase functional endurance and UE strength, pt placed/removed 1" pegs from pegboard, alternating hands with 1 lb wrist cuffs BUE. Pt required mod verbal cues in order to alternate hands during task. In order to increase BUE strength and functional endurance, pt completed x15 mins arm bike, min resistance. Pt required x4 rest breaks with task. Pt took a rest break, then placed/removed graded clothespins (ranging 1-5 lbs) with R & LUE, x1 set each with a rest break between each set. Pt returned to his room to his recliner. Post OT session, pt seated in recliner, call light in reach and all needs met. Chair alarm on. Education OT Patient Education: Correct positioning, Energy conservation, Exercise program, Progress toward Goal/Update tx plan, Purpose of tx/functional activities, Safety issues, Transfer techniques Teaching Recipient: Patient Teaching Methods: Discussion Response to Teaching: Reinforcement Needed OT Short Term Goals Short Term Goals Time Frame: Jul 24, 2019 Shower/bathe self: 5 Upper body dressin Lower body dressin OT Care Home Goals Care Home Goals Time Frame: Aug 02, 2019 Eating (QC): 6 Oral Hygiene (QC): 6 Toileting Hygiene (QC): 6 Shower/Bathe Self (QC): 6 Upper Body Dressing (QC): 6 Lower Body Dressing (QC): 6 On/Off Footwear (QC): 6 Additional Goals: 1-Demonstrate ADL Tasks, 2-Verbalize Understanding, 3- ImproveStrength/Bill 1=Demonstrate adherence to instructed precautions during ADL tasks. 2=Patient will verbalize/demonstrate understanding of assistive dev ices/modifications for ADL. 3=Patient will improve strength/tolerance for activity to enable patient to perform ADL's. OT Education/Plan Problem List/Assessment Assessment: Decreased Activ Tolerance, Decreased Safety Aware, Decreased UE Strength, Impaired I ADL's, Impaired Self-Care Skills Discharge Recommendations Plan/Recommendations: Continue POC Treatment Plan/Plan of Care Patient would benefit from OT for education, treatment and training to promote independence in ADL's, mobility, safety and/or upper extremity function for ADL 's. Plan of Care: ADL Retraining, Functional Mobility, Group Exercise/Act as Ind, UE Funct Exercise/Act Treatment Duration: Aug 02, 2019 Frequency: At least 5 of 7 days/Wk (IRF) Estimated Hrs Per Day: 1.5 hours per day Agreement: Yes Rehab Potential: Fair Time/GCodes Start Time: 08:00 Stop Time: 09:15 Total Time Billed (hr/min): 75 Billed Treatment Time 1, EX (15'), FA 4 (60') [address] OT Jul 16, 2019 08:24
[2019-07-16] MEDS: polyethylene glycoL POWDER 17 GM (MIRALAX) PACK PO SCH (09:00)
[2019-07-16] MEDS: SENNA W/DOCUSATE (SENOKOT S) TABLET PO SCH (09:00)
--- NOTE | 2019-07-16 09:00 | NUR ---
Patient stated didn't sleep well, continues to void frequently, states more than normal. Dr. Blandon aware, no new orders.
[2019-07-16] MEDS: PANTOPRAZOLE 20 MG TABLET (PROTONIX) PO SCH (09:21)
[2019-07-16] MEDS: ACETAMINOPHEN 500 MG TAB (TYLENOL) PO SCH (09:22)
[2019-07-16] MEDS ORDERED: HYDR-4226 PO (09:32)
--- NOTE | 2019-07-16 09:34 | D/C HH Face to Face Order ---
D/C Face to Face Orders Reconcile Patient Problems Problems Reviewed?: Yes Instructions for Patient Via [facility], Patient Instructions/FollowUp: Dr Martinez 1 week Physician to follow Patient: Michelle Discharge Diet for Home: No Restrictions Patient Problems: Valve replacement Dementia Goals for Patient: [place] Patient Data-Allergies,Ht & Wt Patient Allergies: Coded Allergies: NKANo Known Allergies (Verified Allergy, Unknown, 08/24/05) Height (Feet): 5 Height (Inches): 8.00 Weight (Pounds): 147 Weight (Ounces): 0.0 Home Health Need/Face to Face Date of Face to Face: Jul 16, 2019 Clinical Findings: Generalized weakness and fatigue, Instability, Muscle weakness, Unsteady gait I have seen Pt zztg-mv-[id number]: Yes Discharged To: Home Diagnosis/Conditions: Valve replacement Dementia Patient is Homebound due to: CognItive deficits, [place] fall risk due to instabilty, Muscle weakness Homebound Status Due to the above stated illness, injury or surgical procedure (medical condition or diagnosis) and associated clinical findings, the patient is homebound because of his/her inability to leave home except with aid of a supportive device and/or person AND leaving the home requires a considerable and taxing effort or is medically contraindicated. Pt req the following assistanc: Walker Home Health Nursing Orders Home Health Services Order: Physical Therapy-Evaluate & Treat Certify Stmt I certify that this patient is under my care and that I, a nurse practitioner or a physician; a family assistant working with me, had a face to face encounter that - meets the physician face to face encounter requirements with this patient as dated. ZULEYKA BURLESON DO Jul 16, 2019 09:34
--- NOTE | 2019-07-16 09:35 | Discharge Summary ---
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 (7) Hypertension Status: Chronic (8) Insomnia Status: Chronic (9) Esophageal reflux Status: Chronic (10) Fall Status: Acute Discharge Summary Discharge Physical Examination Allergies: Coded Allergies: NKANo Known Allergies (Verified Allergy, Unknown, 08/24/05) Vitals & I&Os Vital Signs Date Time Temp Pulse Resp B/P (MAP) Pulse Ox O2 Delivery O2 Flow Rate FiO2 07/16/19 14:21 36.6 83 18 142/73 97 Room Air General Appearance: Alert, Cooperative Respiratory: Clear to Auscultation Cardiovascular: Regular Rate Neuro: Normal Gait, Normal Speech, Strength at 5/5 X4 Ext Hospital Course Was the Problem List Reviewed?: Yes Patient had a week long IRF course and was able to participate in all therapies as required. No pain was reported although urinary frequency which is chronic did require multiple urination sessions at night. Dementia precluded a good prog nosis but he was stronger and less impulsive with the use of the walker and patient was felt to have benefited from IRF and was able to DC home with his at [place]. Labs (last 24 hrs) Laboratory Tests 07/10/19 06:55: White Blood Count 6.1, Red Blood Count 3.28L, Hemoglobin 11.0L, Hematocrit 35L, Mean Corpuscular Volume 107H, Mean Corpuscular Hemoglobin 34, Mean Corpuscular Hemoglobin Concent 31L, Red Cell Distribution Width 19.6H, Platelet Count 348, Mean Platelet Volume 9.4, Neutrophils (%) (Auto) 75, Lymphocytes (%) (Auto) 12, Monocytes (%) (Auto) 12, Eosinophils (%) (Auto) 1, Basophils (%) (Auto) 0, Neutrophils # (Auto) 4.5, Lymphocytes # (Auto) 0.7L, Monocytes # (Auto) 0.7, Eosinophils # (Auto) 0.1, Basophils # (Auto) 0.0, Prothrombin Time 19.2H, INR Comment 1.5H, Sodium Level 140, Potassium Level 3.8, Chloride Level 107, Carbon Dioxide Level 22, Anion Gap 11, Blood Urea Nitrogen 18, Creatinine 0.78, Estimat Glomerular Filtration Rate > 60, BUN/Creatinine Ratio 23, Glucose Level 83, Calcium Level 8.9, Corrected Calcium 9.2, Total Bilirubin 1.4H, Aspartate Amino Transf (AST/SGOT) 40H, Alanine Aminotransferase (ALT/SGPT) 40, Alkaline Ph osphatase 57, Total Protein 6.1L, Albumin 3.6 07/12/19 09:35: White Blood Count 7.5, Red Blood Count 3.23L, Hemoglobin 10.8L, Hematocrit 35L, Mean Corpuscular Volume 108H, Mean Corpuscular Hemoglobin 33, Mean Corpuscular Hemoglobin Concent 31L, Red Cell Distribution Width 19.3H, Platelet Count 321, Mean Platelet Volume 9.4, Prothrombin Time 22.2H, INR Comment 1.9H, Sodium Level 140, Potassium Level 4.2, Chloride Level 106, Carbon Dioxide Level 23, Anion Gap 11, Blood Urea Nitrogen 30H, Creatinine 0.87, Estimat Glomerular Filtration Rate > 60, BUN/Creatinine Ratio 34, Glucose Level 109H, Calcium Level 8.4L 07/12/19 13:35: Urine Color YELLOW, Urine Clarity CLEAR, Urine pH 6.0, Urine Specific [place] 1.025H, Urine Protein TRACEH, Urine Glucose (UA) NEGATIVE, Urine Ketones TRACEH, Urine Nitrite NEGATIVE, Urine Bilirubin NEGATIVE, Urine Urobilinogen 1.0, Urine Leukocyte Esterase NEGATIVE, Urine RBC (Auto) NEGATIVE, Urine RBC RARE, Urine WBC NONE, Urine Squamous Epithelial Cells NONE, Urine Crystals NONE, Urine Calcium Oxalate Crystals NON, Urine Bacteria TRACE, Urine Casts NONE, Urine Mucus SMALLH, Urine Culture Indicated NO 07/13/19 05:39: Prothrombin Time 20.4H, INR Comment 1.7H 07/15/19 05:40: White Blood Count 4.6, Red Blood Count 3.47L, Hemoglobin 11.6L, Hematocrit 37L, Mean Corpuscular Volume 105H, Mean Corpuscular Hemoglobin 33, Mean Corpuscular Hemoglobin Concent 32, Red Cell Distribution Width 18.0H, Platelet Count 314, Mean Platelet Volume 9.9, Neutrophils (%) (Auto) 73, Lymphocytes (%) (Auto) 15, Monocytes (%) (Auto) 11, Eosinophils (%) (Auto) 1, Basophils (%) (Auto) 0, Neutrophils # (Auto) 3.3, Lymphocytes # (Auto) 0.7L, Monocytes # (Auto) 0.5, Eosinophils # (Auto) 0.1, Basophils # (Auto) 0.0, Prothrombin Time 19.2H, INR Comment 1.6H, Sodium Level 142, Potassium Level 4.2, Chloride Level 106, Carbon Dioxide Level 29, Anion Gap 7, Blood Urea Nitrogen 32H, Creatinine 0.90, Estimat Glomerular Filtration Rate > 60, BUN/Creatinine Ratio 36, Glucose Level 78, Calcium Level 9.0, Corrected Calcium 9.3, Total Bilirubin 1.0, Aspartate Amino Transf (AST/SGOT) 37H, Alanine Aminotransferase (ALT/SGPT) 43, Alkaline Phosphatase 52, Total Protein 5.9L, Albumin 3.6 Pending Labs Laboratory Tests 07/10/19 06:55: White Blood Count 6.1, Red Blood Count 3.28, Hemoglobin 11.0, Hematocrit 35, Mean Corpuscular Volume 107, Mean Corpuscular Hemoglobin 34, Mean Corpuscular Hemoglobin Concent 31, Red Cell Distribution Width 19.6, Platelet Count 348, Mean Platelet Volume 9.4, Neutrophils (%) (Auto) 75, Lymphocytes (%) (Auto) 12, Monocytes (%) (Auto) 12, Eosinophils (%) (Auto) 1, Basophils (%) (Auto) 0, Neutrophils # (Auto) 4.5, Lymphocytes # (Auto) 0.7, Monocytes # (Auto) 0.7, Eosinophils # (Auto) 0.1, Basophils # (Auto) 0.0, Prothrombin Time 19.2, INR Com ment 1.5, Sodium Level 140, Potassium Level 3.8, Chloride Level 107, Carbon Dioxide Level 22, Anion Gap 11, Blood Urea Nitrogen 18, Creatinine 0.78, Estimat Glomerular Filtration Rate > 60, BUN/Creatinine Ratio 23, Glucose Level 83, Calcium Level 8.9, Corrected Calcium 9.2, Total Bilirubin 1.4, Aspartate Amino Transf (AST/SGOT) 40, Alanine Aminotransferase (ALT/SGPT) 40, Alkaline P hosphatase 57, Total Protein 6.1, Albumin 3.6 07/12/19 09:35: White Blood Count 7.5, Red Blood Count 3.23, Hemoglobin 10.8, Hematocrit 35, Mean Corpuscular Volume 108, Mean Corpuscular Hemoglobin 33, Mean Corpuscular Hemoglobin Concent 31, Red Cell Distribution Width 19.3, Platelet Count 321, Mean Platelet Volume 9.4, Prothrombin Time 22.2, INR Comment 1.9, Sodium Level 140, Potassium Level 4.2, Chloride Level 106, Carbon Dioxide Level 23, Anion Gap 11, Blood Urea Nitrogen 30, Creatinine 0.87, Estimat Glomerular Filtration Rate > 60, BUN/Creatinine Ratio 34, Glucose Level 109, Calcium Level 8.4 07/12/19 13:35: Urine Color YELLOW, Urine Clarity CLEAR, Urine pH 6.0, Urine Specific [place] 1.025, Urine Protein TRACE, Urine Glucose (UA) NEGATIVE, Urine Ketones TRACE, Urine Nitrite NEGATIVE, Urine Bilirubin NEGATIVE, Urine Urobilinogen 1.0, Urine Leukocyte Esterase NEGATIVE, Urine RBC (Auto) NEGATIVE, Urine RBC RARE, Urine WBC NONE, Urine Squamous Epithelial Cells NONE, Urine Crystals NONE, Urine Calcium Oxalate Crystals NON, Urine Bacteria TRACE, Urine Casts NONE, Urine Mucus SMALL, Urine Culture Indicated NO 07/13/19 05:39: Prothrombin Time 20.4, INR Comment 1.7 07/15/19 05:40: White Blood Count 4.6, Red Blood Count 3.47, Hemoglobin 11.6, Hematocrit 37, Mean Corpuscular Volume 105, Mean Corpuscular Hemoglobin 33, Mean Corpuscular Hemoglobin Concent 32, Red Cell Distribution Width 18.0, Platelet Count 314, Mean Platelet Volume 9.9, Neutrophils (%) (Auto) 73, Lymphocytes (%) (Auto) 15, Monocytes (%) (Auto) 11, Eosinophils (%) (Auto) 1, Basophils (%) (Auto) 0, Neutrophils # (Auto) 3.3, Lymphocytes # (Auto) 0.7, Monocytes # (Auto) 0.5, Eosinophils # (Auto) 0.1, Basophils # (Auto) 0.0, Prothrombin Time 19.2, INR Comment 1.6, Sodium Level 142, Potassium Level 4.2, Chloride Level 106, Carbon Dioxide Level 29, Anion Gap 7, Blood Urea Nitrogen 32, Creatinine 0.90, Estimat Glomerular Filtration Rate > 60, BUN/Creatinine Ratio 36, Glucose Level 78, Calcium Level 9.0, Corrected Calcium 9.3, Total Bilirubin 1.0, Aspartate Amino Transf (AST/SGOT) 37, Alanine Aminotransferase (ALT/SGPT) 43, Alkaline Phosphatase 52, Total Protein 5.9, Albumin 3.6 Discharge Home Medications: Active Scripts Active Hydrocodone/Acetaminophen 5 MG/325 MG TAB (Hydrocodone/Acetaminophen) 1 Each Tablet 0.5 Tab PO Q4 -6H PRN Sulfamethoxazole-Tmp Ss Tablet (Sulfamethoxazole/Trimethoprim) 1 Each Tablet 0.5 Each PO DAILY Reported Meclizine HCl 25 Mg Tablet 25 Mg PO TID PRN Zofran (Ondansetron HCl) 4 Mg Tab 4 Mg PO BID PRN Mineral Oil 473 Ml Oil 2.5 Ml LEFT EAR MONDAY @1999 Lidocaine Pain Relief (Lidocaine) 1 Each Adh..patch 1 Each TP 1999 APPLY TO THE RIGHT HIP AND REMOVE 12 HOURS LATER Cranberry Concentrate (Cranberry Extract) 500 Mg Capsule 2 Cap PO DAILY Jantoven (Warfarin Sodium) 4 Mg Tablet 2 Mg PO , TAKES 4MG ON MONDAY,MONDAY,MONDAY,MONDAY AND MONDAY 2MG ON MONDAY AND MONDAY Warfarin Sodium 4 Mg Tablet 4 Mg PO MON,MON,MON,,SAT TAKES 4MG ON MONDAY,MONDAY,MONDAY,MONDAY AND MONDAY 2MG ON MONDAY AND MONDAY Liquid B12 (Cyanocobalamin (Vitamin B-12)) 1,000 Mcg/15 Ml Liquid 15 Ml PO DAILY Ropinirole HCl 1 Mg Tablet 1 Mg PO 1800 Osteo Bi-Flex Tablet (Glucosamine/D3/Boswellia Mitzi) 1 Each Tablet 1 Each PO DAILY Cetirizine HCl 10 Mg Tablet 10 Mg PO DAILY Isosorbide Mononitrate ER (Isosorbide Mononitrate) 30 Mg Tab.er.24h 30 Mg PO DAILY Citracal-Vit D 200 mg-250 Tab (Calcium Citrate/Vitamin D3) 1 Each Tablet 1 Tab PO DAILY Metoprolol Succinate 50 Mg Tab.er.24h 50 Mg PO DAILY Acetaminophen 500 Mg Tablet 1,000 Mg PO BID TAKES 2 (500MG) TABS TWICE DAILY [facility] Multivitamin Tab (Multivit-Min/FA/Lycopene/Lut) 1 Each Tablet 1 Tab PO DAILY Memantine HCl 10 Mg Tablet 10 Mg PO BID Aspirin EC (Aspirin) 81 Mg Tablet. 81 Mg PO DAILY Omeprazole 20 Mg Capsule.dr 20 Mg PO DAILY Enriquez Newslabs [facility] Capsule (l Gasseri/B Bifidum/B Longum) 1 Each Capsule 1 Each PO DAILY Instructions to patient/family Please see electronic discharge instructions given to patient. 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
--- NOTE | 2019-07-16 10:18 | Speech Therapy Daily Note ---
Speech Daily Progress Note Subjective Date Seen by Provider: Jul 16, 2019 Time Seen by Provider: 00:30 The patient was taking a nap in his recliner when I entered his room. Objective Patient completed general information trivia with 60 percent given moderate verbal cues and or repetitions. Assessment Assessment Current Status: Good Progress Treatment Plan Continue Plan of Care Speech Short Term Goals Short Term Goals Short Term Goals 1) The patient will complete memory tasks related to his daily needs at 80% or greater. 2) The patient will complete problem solving tasks related to his daily needs at 80% or greater. 3) The patient will complete safety awareness tasks related to his daily needs at 80% or greater. Speech Publication Editor Goals Publication Editor Goals Patient will improve cognitive-communication necessary for safety and daily living tasks with minimal assist. Speech-Plan Patient/Family Goals Patient/Family Goals: Patient plans on returning to his [place] apartment where he lives with his post rehab. Treatment Plan Speech Therapy Treatment Plan: Continue Plan of Care Treatment Duration: Jul 19, 2019 Frequency: 5 times per week Estimated Hrs Per Day: .5 hour per day Rehab Potential: Fair Barriers to Learning: Patient has moderate cognitive deficits. Pt/Family Agrees to Plan: Yes Safety Risks/Education Teaching Recipient: Patient Teaching Methods: Demonstration, Discussion Response to Teaching: Verbalize Understanding, Return Demonstration, Reinforcement Needed Education Topics Provided: Continued safety within his room and communication of wants/needs Time Speech Therapy Time In: 09:30 Speech Therapy Time Out: 10:00 Total Billed Time: 30 Billed Treatment Time [address] Jul 16, 2019 10:18
--- NOTE | 2019-07-16 12:13 | Physical Therapy Daily Note ---
PT Daily Note-Current Subjective Pt sitting in recliner upon arrival. Pt agrees to PT for QC scoring for D/C. Pain Location: No Pain Reported Mental Status Patient Orientation: Person, Confused, Place Transfers SCALE: Activities may be completed with or without assistive devices. 9-Cjokmfvkao-wiwfrhh completes the activity by him/herself with no assistance from a helper. 5-Set-up or Clean-up Assistance-helper sets up or cleans up; patient completes activity. [place] assists only prior to or following the activity. 4-Supervision or Touching Assistance-helper provides verbal cues and/or touching/steadying and/or contact guard assistance as patient completes activity. Assistance may be provided throughout the activity or intermittently. 3-Partial/Moderate Assistance-helper does LESS THAN HALF the effort. [place] lifts, holds or supports trunk or limbs, but provides less than half the effort. 2-Substantial/Maximal Assistance-helper does MORE THAN HALF the effort. [place] lifts or holds trunk or limbs and provides more than half the effort. 6-Gptyacchp-plfgro does ALL the effort. Patient does none of the effort to complete the activity. Or, the assistance of 2 or more helpers is required for the patient to complete the activity. If activity was not attempted, code reason: 7-Patient Refused. 9-Not Applicable-not attempted and the patient did not perform the activity before the current illness, exacerbation or injury. 10-Not Attempted due to Environmental Limitations-(lack of equipment, weather restraints, etc.). 88-Not Attempted due to Medical Conditions or Safety Concerns. Roll Left & Right (QC): 6 Sit to Lying (QC): 6 Lying to Sitting/Side of Bed(Q: 6 Sit to Stand (QC): 5 Chair/Pcb-mr-Efrzf Xfer(QC): 5 Toilet Transfer (QC): 5 Car Transfer (QC): 5 Pt given VC for sequencing and safety. Weight Bearing Right Lower Extremity: Right Full Weight Bearing Left Lower Extremity: Left Full Weight Bearing Gait Training Does the Patient Walk?: Yes Distance: 150' Walk 10 feet (QC): 5 Walk 50 ft with 2 Turns(QC): 5 Walk 150 ft (QC): 5 Walking 10ft/uneven surface-QC: 5 Gait Persons Needed: 1 Gait Assistive Device: FWW Wheelchair Training Does the Pt Use a Wheelchair?: No Stair Training Stair Training: Handrails/: 2 handrails #of Steps: 8 1 Step (curb) (QC): 5 4 Steps (QC): 5 12 Steps (QC): 9 Stairs: Pattern: Step to Balance Picking up an Object (QC): 88 Special Test Comments Pt will be using access service representative after D/C. This is not tested due to pt's balance. Exercises Seated Therapy Exercises: Ankle pumps, Long arc quads, Hip flexion, Kicking activity, Glut set Seated Reps: 15 NuStep Minutes: 13 NuStep Workload: 4 Treatments Pt completes QC scoring items listed above. Pt also completes Seated Ex and uses NuStep for 13m at [facility] 4. Pt returns to room to rest in recliner at end of Rx. Pt has all needs met, call light in hand. Assessment Current Status: Good Progress Pt tolerates Rx well. PT Short Term Goals Short Term Goals Time Frame: Jul 16, 2019 Roll Left & Right: 6 Sit to lyin (SBA) Lying to sitting on side of be: 4 (SBA) Sit to stand: 4 (SBA) Chair/zhy-vk-nthwt transfer: 4 (SBA) Walk 10 feet: 4 (SBA) Walk 50 feet with two turns: 4 (SBA) Walk 150 feet: 4 (SBA) PT Environmental Services Manager Goals Environmental Services Manager Goals PT Environmental Services Manager Goals Time Frame: Jul 30, 2019 Roll Left & Right (QC): 6 Sit to Lying (QC): 6 Lying-Sitting on Side/Bed(QC): 6 Sit to Stand (QC): 6 Chair/Znq-jn-Oqqdk Xfer(QC): 6 Toilet Transfer (QC): 6 Car Transfer (QC): 6 Walk 10 feet (QC): 6 Walk 50ft with 2 Turns (QC): 6 Walk 150 ft (QC): 6 Walking 10ft on Uneven Surface: 6 1 Step (curb) (QC): 4 (SBA) 4 Steps (QC): 4 (SBA) PT Plan Problem List Problem List: Activity Tolerance, Functional Strength, Safety Treatment/Plan Treatment Plan: Continue Plan of Care Treatment Plan: Bed Mobility, Education, Functional Activity Bill, Functional Strength, Group Therapy, Gait, Safety, Therapeutic Exercise, Transfers Treatment Duration: Jul 30, 2019 Frequency: At least 5 of 7 days/Wk (IRF) Estimated Hrs Per Day: 1.5 hours per day Patient and/or Family Agrees t: Yes Safety Risks/Education Patient Education: Gait Training, Transfer Techniques, Steps, Correct Positioning, Safety Issues Teaching Recipient: Patient Teaching Methods: Discussion Response to Teaching: Verbalize Understanding Time/GCodes Time In: 1000 Time Out: 1100 Total Billed Treatment Time: 60 Total Billed Treatment 1, GT (15m), FA x2 (30m) & EX (15m) SUSY MELVIN POWER AND RECOVERY SHIFT ENGINEER Jul 16, 2019 12:13
--- NOTE | 2019-07-16 12:40 | NUR ---
CM/SS DISCHARGE Patient discharged to return to established assisted living [facility] where he resides with his spouse, Estrella Seay. HHC: Coordinated with patient and facility preferred agency, [facility], for PT therapy. Patient pleased to be discharged. Sewer Pipe Cleaner spoke with [facility]Melissa Seay and they will pick him up at 1300. Staff have informed patient re same. Sewer Pipe Cleaner faxed continuum of care information to [facility], prepared continuum of care packet to accompany patient. Unit RN fully updated.
[2019-07-16 14:21] VITALS: BP 142/73
--- NOTE | 2019-07-16 15:05 | Therapy Team Discharge Summary ---
Therapy Discharge Summary Discharge Recommendations Date of Discharge Jul 16, 2019 at 13:10 Physical Therapy Patient modified independent PLOF at [place] prior to hospital admit. Patient required minimal assist upon initial evaluation for all gross motor skills and ambulates short distance with FWW. Upon dismissal, patient is SBA to modified independent with all gross motor skills and ambulates with FWW 150'. Patient demonstrated ability to perform steps SBA to modified independent with 8 steps and use of hand rails. Goals were address, however, not all attained. PT will continue with home health at [place]. Occupational Therapy Decreased Activ Tolerance, Decreased Safety Aware, Decreased UE Strength, Impaired I ADL's, Impaired Self-Care Skills PT Half-Way Goals Commercial Internship Goals PT Half-Way Goals Time Frame: Jul 30, 2019 Roll Left to Right (QC): 6 (met 07/16/19) Sit to Lying (QC): 6 (met 07/16/19) Lying-Sitting on Side/Bed(QC): 6 (met 07/16/19) Sit to Stand (QC): 6 Chair/Qcm-fr-Zehxd Xfer(QC): 6 Car Transfer (QC): 6 Walk 10 feet (QC): 6 Walk 10ft-Uneven Surface(QC): 6 Walk 50ft with 2 Turns (QC): 6 Walk 150 ft (QC): 6 1 Step (curb) (QC): 4 (SBA) 4 Steps (QC): 4 (SBA) OT Commercial Internship Goals Half-Way Goals Time Frame: Aug 02, 2019 Eating (QC): 6 Oral Hygiene (QC): 6 Shower/Bathe Self (QC): 6 Upper Body Dressing (QC): 6 Lower Body Dressing (QC): 6 On/Off Footwear (QC): 6 Toileting Hygiene (QC): 6 Toilet/Commode Transfer (QC): 6 Additional Goals: 1-Demonstrate ADL Tasks, 2-Verbalize Understanding, 3- ImproveStrength/Bill 1=Demonstrate adherence to instructed precautions during ADL tasks. 2=Patient will verbalize/demonstrate understanding of assistive devices/modifications for ADL. 3=Patient will improve strength/tolerance for activity to enable patient to perform ADL's. Speech Half-Way Goals Half-Way Goals Patient will improve cognitive-communication necessary for safety and daily living tasks with minimal assist. THADDEUS GONZALES PT Jul 16, 2019 15:05
--- NOTE | 2019-07-17 08:09 | Therapy Team Discharge Summary ---
Therapy Discharge Summary Discharge Recommendations Date of Discharge Jul 16, 2019 at 13:10 Occupational Therapy Decreased Activ Tolerance, Decreased Safety Aware, Decreased UE Strength, Imp aired I ADL's, Impaired Self-Care Skills Speech-Language Pathology Patient discharged to the [place] where he lives with his . Patient has moderate dementia and was not able to meet ST goals. PT Care Home Goals Narrow Gauge Brakeman Goals PT Care Home Goals Time Frame: Jul 30, 2019 Roll Left to Right (QC): 6 (met 07/16/19) Sit to Lying (QC): 6 (met 07/16/19) Lying-Sitting on Side/Bed(QC): 6 (met 07/16/19) Sit to Stand (QC): 6 Chair/Ocz-ov-Xunjh Xfer(QC): 6 Car Transfer (QC): 6 Walk 10 feet (QC): 6 Walk 10ft-Uneven Surface(QC): 6 Walk 50ft with 2 Turns (QC): 6 Walk 150 ft (QC): 6 1 Step (curb) (QC): 4 (SBA) 4 Steps (QC): 4 (SBA) OT Narrow Gauge Brakeman Goals Care Home Goals Time Frame: Aug 02, 2019 Eating (QC): 6 Oral Hygiene (QC): 6 Shower/Bathe Self (QC): 6 Upper Body Dressing (QC): 6 Lower Body Dressing (QC): 6 On/Off Footwear (QC): 6 Toileting Hygiene (QC): 6 Toilet/Commode Transfer (QC): 6 Additional Goals: 1-Demonstrate ADL Tasks, 2-Verbalize Understanding, 3-ImproveStrength/Bill 1=Demonstrate adherence to instructed precautions during ADL tasks. 2=Patient will verbalize/demonstrate understanding of assistive devices/modifications for ADL. 3=Patient will improve strength/tolerance for activity to enable patient to perf orm ADL's. Speech Narrow Gauge Brakeman Goals Care Home Goals Patient will improve cognitive-communication necessary for safety and daily living tasks with minimal assist. SLICK NEWTON Jul 17, 2019 08:09
--- NOTE | 2019-07-17 11:37 | Therapy Team Discharge Summary ---
Therapy Discharge Summary Discharge Recommendations Date of Discharge Jul 16, 2019 at 13:10 Occupational Therapy Pt admitted to [facility] on 07/09/2019 with diagnosis of debility. He reports being independent with dressing and bathing at PLOF, but has assistance with meals. At evaluation, pt reports being independent with eating, min A with oral hygiene, CGA with sponge bath, min A upper & lower body dressing, SBA with footwear (slipper socks), and CGA with toileting/toilet transfers. OT txs with focus on increasing safety and independence with ADLs and functional mobility. At discharge, pt refused to complete all ADLs. During previous ADL session, pt required SBA with oral hygiene standing at sink, CGA with showering, min A-Set up assist with upper body dressing, Min A - CGA with lower body dressing, min A with footwear (required assistance with right shoe), and CGA with toileting/toilet transfer. Pt met goal of being independent with eating, but all other goals were not met prior to discharge. Pt discharged home to [place] on 07/16/2019, discontinue OT services at this time. Decreased Activ Tolerance, Decreased Safety Aware, Decreased UE Strength, Impaired I ADL's, Impaired Self-Care Skills PT Integrated Program Teacher Goals Alf Goals PT Integrated Program Teacher Goals Time Frame: Jul 30, 2019 Roll Left to Right (QC): 6 (met 07/16/19) Sit to Lying (QC): 6 (met 07/16/19) Lying-Sitting on Side/Bed(QC): 6 (met 07/16/19) Sit to Stand (QC): 6 Chair/Ufc-cs-Rutct Xfer(QC): 6 Car Transfer (QC): 6 Walk 10 feet (QC): 6 Walk 10ft-Uneven Surface(QC): 6 Walk 50ft with 2 Turns (QC): 6 Walk 150 ft (QC): 6 1 Step (curb) (QC): 4 (SBA) 4 Steps (QC): 4 (SBA) OT Integrated Program Teacher Goals Alf Goals Time Frame: Aug 02, 2019 Eating (QC): 6 (met) Oral Hygiene (QC): 6 (not met, SBA) Shower/Bathe Self (QC): 6 (not met, CGA) Upper Body Dressing (QC): 6 (not met, set up-min A) Lower Body Dressing (QC): 6 (not met, min A-CGA) On/Off Footwear (QC): 6 (not met, min A with R shoe) Toileting Hygiene (QC): 6 (not met, CGA) Toilet/Commode Transfer (QC): 6 (not met, CGA) Additional Goals: 1-Demonstrate ADL Tasks, 2-Verbalize Understanding, 3- ImproveStrength/Bill 1=Demonstrate adherence to instructed precautions during ADL tasks. 2=Patient will verbalize/demonstrate understanding of assistive devices/modifications for ADL. 3=Patient will improve strength/tolerance for activity to enable patient to perform ADL's. Speech Alf Goals Integrated Program Teacher Goals Patient will improve cognitive-communication necessary for safety and daily living tasks with minimal assist. BABAR [address] OT Jul 17, 2019 11:37
== END 2019-07-16 13:10 | disposition home health service (06) | DRG 949 ==
PROVIDERS: ADMIT Internal Medicine; ATTEND Internal Medicine
DX: S30.0XXD Contusion of lower back and pelvis, subsequent encounter (principal); D62 Acute posthemorrhagic anemia; I10 Essential (primary) hypertension; F03.90 Unspecified dementia, unspecified severity, without behavioral disturbance, psychotic disturbance, mood disturbance, and anxiety; H91.93 Unspecified hearing loss, bilateral; K21.9 Gastro-esophageal reflux disease without esophagitis; K59.00 Constipation, unspecified; R35.0 Frequency of micturition; Z66 Do not resuscitate; F41.9 Anxiety disorder, unspecified; F32.9 Major depressive disorder, single episode, unspecified; G47.00 Insomnia, unspecified; M19.91 Primary osteoarthritis, unspecified site; Z95.2 Presence of prosthetic heart valve; Z97.4 Presence of external hearing-aid; Z85.828 Personal history of other malignant neoplasm of skin; Z87.820 Personal history of traumatic brain injury; Z79.82 Long term (current) use of aspirin; Z79.01 Long term (current) use of anticoagulants; Z95.1 Presence of aortocoronary bypass graft; W19.XXXD Unspecified fall, subsequent encounter
CPT/HCPCS: 36415; 80048; 80053; 81000; 85025; 85027; 85610

== ENCOUNTER 2019-10-21 13:52 | Emergency (ER) | payer MEDICARE ==
[~2019-10-21] VITALS: Ht 177 cm; Wt 72.6 kg
[~2019-10-21 13:52] MED LIST changes: +MELA3TAB39 PO; -MELA3TAB65 PO
[2019-10-21 14:05] LABS: BASOPHILS % (AUTO) 0 % (0-10); EOSINOPHILS % (AUTO) 0 % (0-10); HEMATOCRIT 32 % (40-54); HEMOGLOBIN 10.3 G/DL (13.3-17.7); LYMPHOCYTES # (AUTO) 1.2 X 10^3 (1.0-4.0); LYMPHOCYTES % (AUTO) 19 % (12-44); MEAN CORPUSCULAR HEMOGLOBIN 33 PG (25-34); MEAN CORPUSCULAR HGB CONC 33 G/DL (32-36); MEAN CORPUSCULAR VOLUME 103 FL (80-99); MEAN PLATELET VOLUME 9.9 FL (7.4-10.4); MONOCYTES # (AUTO) 0.7 X 10^3 (0.0-1.0); MONOCYTES % (AUTO) 11 % (0-12); NEUTROPHILS # (AUTO) 4.6 X 10^3 (1.8-7.8); NEUTROPHILS % (AUTO) 70 % (42-75); PLATELET COUNT 166 10^3/uL (130-400); RED CELL DISTRIBUTION WIDTH 14.2 % (10.0-14.5); WHITE BLOOD COUNT 6.6 10^3/uL (4.3-11.0)
--- NOTE | 2019-10-21 14:06 | ED Neurological Problem ---
General Source: patient Exam Limitations: no limitations History of Present Illness Date Seen by Provider: Oct 21, 2019 Time Seen by Provider: 14:01 Initial Comments To ER by EMS with reports of stuttering/garbled speech and concern for stroke noticed by assisted living staff at [facility]. Symptoms began this morning, patient reports that he also had them yesterday evening. 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 No fever no chills no cough. Patient himself reports that he has a headache, states that he fell 2 days ago. Timing/Duration: 24 hours Severity: moderate Associated Symptoms: denies symptoms Allergies and Home Medications Allergies Coded Allergies: NKANo Known Allergies (Verified Allergy, Unknown, 08/24/05) Home Medications Acetaminophen 500 Mg Tablet, 1,000 MG PO BID, (Reported) TAKES 2 (500MG) TABS TWICE DAILY Aspirin 81 Mg Tablet.dr, 81 MG PO DAILY, (Reported) Calcium Citrate/Vitamin D3 1 Each Tablet, 1 TAB PO DAILY, (Reported) Cetirizine HCl 10 Mg Tablet, 10 MG PO DAILY, (Reported) Cranberry Extract 500 Mg Capsule, 2 CAP PO DAILY, (Reported) Cyanocobalamin (Vitamin B-12) 1,000 Mcg/15 Ml Liquid, 15 ML PO DAILY, (Reported) Glucosamine/D3/Boswellia Mitzi 1 Each Tablet, 1 EACH PO DAILY, (Reported) Hydrocodone/Acetaminophen 1 Each Tablet, 0.5 TAB PO Q4 -6H PRN for PAIN-MODERATE (5-7) Prescribed by: ZULEYKA BURLESON on 07/16/19 0932 Isosorbide Mononitrate 30 Mg Tab.er.24h, 30 MG PO DAILY, (Reported) Lidocaine 1 Each Adh..patch, 1 EACH 1999, (Reported) APPLY TO THE RIGHT HIP AND REMOVE 12 HOURS LATER Meclizine HCl 25 Mg Tablet, 25 MG PO TID PRN for DIZZINESS, (Reported) Memantine HCl 10 Mg Tablet, 10 MG PO BID, (Reported) Metoprolol Succinate 50 Mg Tab.er.24h, 50 MG PO DAILY, (Reported) Mineral Oil 473 Ml Oil, 2.5 ML LEFT EAR MONDAY @1999, (Reported) Multivit-Min/FA/Lycopene/Lut 1 Each Tablet, 1 TAB PO DAILY, (Reported) Omeprazole 20 Mg Capsule.dr, 20 MG PO DAILY, (Reported) Ondansetron HCl 4 Mg Tab, 4 MG PO BID PRN for NAUSEA/VOMITING-1ST LINE, (Reported) Ropinirole HCl 1 Mg Tablet, 1 MG PO 1800, (Reported) Sulfamethoxazole/Trimethoprim 1 Each Tablet, 0.5 EACH PO DAILY Prescribed by: TORO VEGAS on 07/08/19 0928 Warfarin Sodium 4 Mg Tablet, 4 MG PO MON,MON,MON,,MON, (Reported) TAKES 4MG ON MONDAY,MONDAY,MONDAY,MONDAY AND MONDAY 2MG ON MONDAY AND MONDAY Warfarin Sodium 4 Mg Tablet, 2 MG PO ,, (Reported) TAKES 4MG ON MONDAY,MONDAY,MONDAY,MONDAY AND MONDAY 2MG ON MONDAY AND MONDAY l Gasseri/B Bifidum/B Longum 1 Each Capsule, 1 EACH PO DAILY, (Reported) Patient Home Medication List Home Medication List Reviewed: Yes Review of Systems Review of Systems Constitutional: see HPI Eyes: No Symptoms Reported Ears, Nose, Mouth, Throat: no symptoms reported Respiratory: no symptoms reported Cardiovascular: no symptoms reported Genitourinary: no symptoms reported Musculoskeletal: no symptoms reported Skin: no symptoms reported Psychiatric/Neurological: No Symptoms Reported Endocrine: No Symptoms Reported Hematologic/Lymphatic: No Symptoms Reported Past Esonmjj-Bhecbu-Osjopx Hx Patient Social History Type Used: Cigarettes Former Smoker, Quit: Jun 29, 1949 2nd Hand Smoke Exposure: No Recent Hopitalizations: No Immunizations Up To Date Tetanus Booster (TDap): Unknown Date of Pneumonia Vaccine: Mar 27, 2011 Date of Influenza Vaccine: Dec 30, 2018 Seasonal Allergies Seasonal Allergies: No Past Medical History Surgeries: Yes Abdominal, Appendectomy, Gallbladder, Joint Replacement, Neurological, Open Heart Surgery, Orthopedic, Rectal, Valve Replacement Respiratory: No Cardiac: Yes (AORTIC VALVE REPLACEMENT; .) Hypertension, Valvular Heart Disease 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 ) Dementia, Traumatic Brain Injury Reproductive Disorders: No Sexually Transmitted Disease: No HIV/AIDS: No Genitourinary: No Gastrointestinal: Yes Gastroesophageal Reflux, Gall Bladder Disease Musculoskeletal: Yes (CHRONIC ROTATOR CUFF PROBLEMS) Arthritis Endocrine: No HEENT: No Hearing Impairment: Hard of Hearing, Bilateral Hearing Aide Cancer: Yes Skin Psychosocial: No Integumentary: No Blood Disorders: No Adverse Reaction/Blood Tranf: No Family Medical History Alzheimer's disease Arthritis 19 MOTHER Cardiovascular disease G8 BROTHER Colon cancer 19 MOTHER Completed stroke 19 MOTHER Dementia 19 FATHER Myocardial infarction G8 BROTHER No Family History of: AIDS Abdominal aortic aneurysm Duane's disease Alcoholism Asthma Cataracts Congenital disease Diabetes mellitus Drug abuse Hypertension Kidney disease Parkinson's disease Prostate cancer Psychosocial problem Respiratory disorder Seizure disorder Severe allergy Thyroid disease Tuberculosis Heart Disease, Hypertension, Stroke Physical Exam Vital Signs Vital Signs - First Documented 10/21/19 13:52 Temp 36.9 Pulse 72 Resp 17 B/P (MAP) 133/69 (90) O2 Delivery Room Air Capillary Refill : Height, Weight, BMI Height: 5'8.00" Weight: 147lbs. 0.0oz. [id number]; 19.76 BMI Method:Stated General Appearance: WD/WN, no apparent distress, thin, other (alert and oriented pleasant without obvious neurologic deficit. Speech does not seem slurred to me) HEENT: PERRL/EOMI, normal ENT inspection Neck: non-tender, full range of motion Respiratory: no respiratory distress, no accessory muscle use Gastrointestinal: soft Neurologic/Psychiatric: alert, normal mood/affect Crainal Nerves: normal hearing, normal speech, PERRL Motor/Sensory: no motor deficit, no sensory deficit, no pronator drift Skin: normal color, warm/dry Stroke Onset of Symptoms Date of Onset of Symptoms: Oct 21, 2019 Time of Symptom Onset: 08:00 Onset of Symptoms: Yes NIH Stroke Scale Assessment Select: Initial Level of Consciousness: 0=Alert (0), Level of Consciousness- Questions: 0=Answers both month/age (0), LOC Commands: 0=Performs both tasks (0), Facial Movement (Facial Paresis): 0=Normal symmetrical mnt (0), Motor Function-Arms Right: 0=No drift (0), Motor Function-Arms Left: 0=No drift (0), Motor Function-Legs Right: 0=No drift (0), Motor Function-Legs Left: 0=No drift (0), Limb Ataxia: 0=Absent (0), Sensory: 0=Normal:no loss (0), Best Language: 0=No aphasia (0), Dysarthria: 0=Normal (0), Extinction & Inattention: 0=No abnormality (0), Total: 0 Progress/Results/Core Measures Results/Orders Lab Results Laboratory Tests Test 10/21/19 13:55 10/21/19 14:21 10/21/19 14:26 Range/Units White Blood Count 6.6 4.3-11.0 10^3/uL Red Blood Count 3.08 L 4.35-5.85 10^6/uL Hemoglobin 10.3 L 13.3-17.7 G/DL Hematocrit 32 L 40-54 % Mean Corpuscular Volume 103 H 80-99 FL Mean Corpuscular Hemoglobin 33 25-34 PG Mean Corpuscular Hemoglobin Concent 33 32-36 G/DL Red Cell Distribution Width 14.2 10.0-14.5 % Platelet Count 166 130-400 10^3/uL Mean Platelet Volume 9.9 7.4-10.4 FL Neutrophils (%) (Auto) 70 42-75 % Lymphocytes (%) (Auto) 19 12-44 % Monocytes (%) (Auto) 11 0-12 % Eosinophils (%) (Auto) 0 0-10 % Basophils (%) (Auto) 0 0-10 % Neutrophils # (Auto) 4.6 1.8-7.8 X 10^3 Lymphocytes # (Auto) 1.2 1.0-4.0 X 10^3 Monocytes # (Auto) 0.7 0.0-1.0 X 10^3 Eosinophils # (Auto) 0.0 0.0-0.3 10^3/uL Basophils # (Auto) 0.0 0.0-0.1 10^3/uL Prothrombin Time 39.6 H 12.2-14.7 SEC INR Comment 3.8 H 0.8-1.4 Activated Partial Thromboplast Time 70 H 24-35 SEC D-Dimer 0.62 H 0.00-0.49 UG/ML Sodium Level 140 135-145 MMOL/L Potassium Level 4.7 3.6-5.0 MMOL/L Chloride Level 109 H 98-107 MMOL/L Carbon Dioxide Level 26 21-32 MMOL/L Anion Gap 5 5-14 MMOL/L Blood Urea Nitrogen 20 H 7-18 MG/DL Creatinine 1.31 H 0.60-1.30 MG/DL Estimat Glomerular Filtration Rate 52 BUN/Creatinine Ratio 15 Glucose Level 107 H 70-105 MG/DL Calcium Level 8.6 8.5-10.1 MG/DL Corrected Calcium 8.9 8.5-10.1 MG/DL Total Bilirubin 0.4 0.1-1.0 MG/DL Aspartate Amino Transf (AST/SGOT) 26 5-34 U/L Alanine Aminotransferase (ALT/SGPT) 18 0-55 U/L Alkaline Phosphatase 47 40-136 U/L Troponin I < 0.028 <0.028 NG/ML Total Protein 5.8 L 6.4-8.2 GM/DL Albumin 3.6 3.2-4.5 GM/DL Glucometer 99 70-110 MG/DL My Orders Orders - BRIANDA MACHADO APRN Cbc With Automated Diff (10/21/19 13:59) Protime With Inr (10/21/19 13:59) Partial Thromboplastin Time (10/21/19 13:59) Comprehensive Metabolic Panel (10/21/19 13:59) Fibrin Degradation Products (10/21/19 13:59) Troponin I (10/21/19 13:59) Ua Culture If Indicated (10/21/19 13:59) Chest 1 View, Ap/Pa Only (10/21/19 13:59) Ekg Tracing (10/21/19 13:59) Nothing By Mouth (10/21/19 Dinner) Accucheck Stat ONCE (10/21/19 13:59) Ed Iv/Invasive Line Start (10/21/19 13:59) Vital Signs Stroke Patient Q15M (10/21/19 13:59) Ct Head Wo-R/O Stroke (10/21/19 13:59) O2 (10/21/19 13:59) Intake & Output 06,14,22 (10/21/19 13:59) Monitor-Rhythm Ecg Trace Only (10/21/19 13:59) Dysphagia Screening Tool (10/21/19 13:59) Post Thrombolytic Adminstratio (10/21/19 13:59) Lipid Panel (10/22/19 06:00) Phytonadione (Adult) Injection (Aquameph (10/21/19 14:30) Vital Signs/I&O 10/21/19 13:52 Temp 36.9 Pulse 72 Resp 17 B/P (MAP) 133/69 (90) O2 Delivery Room Air Diagnostic Imaging Diagonstic Imaging: CT Comments NAME: COLTHARP,SHERICE L [facility] REC#: [id number] PT STATUS: REG ER : 1935 PHYSICIAN: BRIANDA MACHADO APRN ADMIT DATE: 10/21/19/ER Draft Date of Exam:10/21/19 CT HEAD WO-R/O STROKE PROCEDURE: CT head wo r/o stroke. TECHNIQUE: Multiple contiguous axial images were obtained through the brain without the use of intravenous contrast. Auto Exposure Controls were utilized during the CT exam to meet ALARA standards for radiation dose reduction. INDICATION: Slurred speech. COMPARISON: Correlation is made with the prior head CT from 11/17/2016. FINDINGS: There is an acute intracranial hemorrhage identified in the left cerebral hemisphere. An area of acute intraparenchymal blood is identified in the left frontal lobe just lateral to the left frontal horn. This area measures 3.7 x 2.9 cm. There are adjacent linear regions of hyperdensity noted in the left temporal as well as frontal lobes, consistent with acute subarachnoid blood. Very thin hyperdensity along the left frontal as well as posterior parietal-occipital regions is noted measuring to a thickness of up to 5 mm, consistent with acute subdural blood. No significant mass effect or midline shift is seen. There is extensive periventricular hypodensity noted, consistent with senescent change. No depressed calvarial fracture is seen. There are postop changes of left frontal craniotomy. IMPRESSION: Acute intracranial hemorrhage on the left. There is intraparenchymal, subarachnoid, and subdural blood, as described. No significant mass effect or midline shift is detected. These results were discussed with Brianda Machado of the Emergency Department prior to this dictation. Dictated on workstation # [id number] Dict: 10/21/19 1417 Trans: 10/21/19 1424 [id number] Interpreted by: LISA AGUILAR MD Electronically signed by: Departure Communication (Admissions) Patient's son is a physician here Dr. Seay. He is here seeing his dad. We discussed with primary care doctor Michelle. All in agreement to send him back to assisted living for repeat scan in 2 days. He is about 3-4 days post fall. We will give vitamin K to reverse the INR. They would not want surgical intervention even if this enlarges. As such is reasonable to discharge home. Dr. Michelle Seay both agree with this plan. He remains alert and oriented. Heart rate 69, blood pressure 137/59. Respiratory rate is 10. GCS 15. NIH 0. Impression Primary Impression: Intracranial hemorrhage Additional Impression: Supratherapeutic INR Disposition: HOME, SELF-CARE Condition: Stable Departure-Patient Inst. Decision time for Depature: 14:41 Referrals: TORO VEGAS MD (PCP/Family) Primary Care Physician Patient Instructions: Intracerebral Hemorrhage (DC) BRIANDA MACHADO [employer] Oct 21, 2019 14:05
[2019-10-21 14:20] LABS: ALBUMIN 3.6 GM/DL (3.2-4.5); CHLORIDE 109 MMOL/L (98-107); POTASSIUM 4.7 MMOL/L (3.6-5.0); SODIUM 140 MMOL/L (135-145)
[2019-10-21 14:21] LABS: CALCIUM 8.6 MG/DL (8.5-10.1)
[2019-10-21 14:22] LABS: GLUCOSE 107 MG/DL (70-105); TOTAL PROTEIN 5.8 GM/DL (6.4-8.2)
[2019-10-21 14:23] LABS: CARBON DIOXIDE 26 MMOL/L (21-32); FIBRIN DEGRADATION PRODUCTS 0.62 UG/ML (0.00-0.49); INR 3.8 (0.8-1.4); PROTHROMBIN TIME PATIENT 39.6 SEC (12.2-14.7)
[2019-10-21 14:24] LABS: BILIRUBIN,TOTAL 0.4 MG/DL (0.1-1.0)
--- NOTE | 2019-10-21 14:24 | Diagnostic Imaging Report ---
PROCEDURE: CT head wo r/o stroke. TECHNIQUE: Multiple contiguous axial images were obtained through the brain without the use of intravenous contrast. Auto Exposure Controls were utilized during the CT exam to meet ALARA standards for radiation dose reduction. INDICATION: Slurred speech. COMPARISON: Correlation is made with the prior head CT from 11/17/2016. FINDINGS: There is an acute intracranial hemorrhage identified in the left cerebral hemisphere. An area of acute intraparenchymal blood is identified in the left frontal lobe just lateral to the left frontal horn. This area measures 3.7 x 2.9 cm. There are adjacent linear regions of hyperdensity noted in the left temporal as well as frontal lobes, consistent with acute subarachnoid blood. Very thin hyperdensity along the left frontal as well as posterior parietal-occipital regions is noted measuring to a thickness of up to 5 mm, consistent with acute subdural blood. No significant mass effect or midline shift is seen. There is extensive periventricular hypodensity noted, consistent with senescent change. No depressed calvarial fracture is seen. There are postop changes of left frontal craniotomy. IMPRESSION: Acute intracranial hemorrhage on the left. There is intraparenchymal, subarachnoid, and subdural blood, as described. No significant mass effect or midline shift is detected. These results were discussed with Pineda Machado of the Emergency Department prior to this dictation. Dictated by: Dictated on workstation # [id number]
[2019-10-21 14:26] LABS: ALKALINE PHOSPHATASE 47 U/L (40-136); CREATININE SERUM 1.31 MG/DL (0.60-1.30); GFR ESTIMATED 52
[2019-10-21 14:27] LABS: BUN/CREATININE RATIO 15
[2019-10-21 14:29] LABS: ALANINE AMINOTRANSFERASE 18 U/L (0-55)
[2019-10-21] MEDS ORDERED: PHYTONADIONE (ADULT) INJECTION 10 MG in NS (IVPB) 50 ML IV ONE (14:30)
[2019-10-21 14:31] LABS: BILIRUBIN,URINE NEGATIVE (NEGATIVE); CLARITY,URINE CLEAR; COLOR,URINE YELLOW; GLUCOSE, URINE (UA) NEGATIVE (NEGATIVE); KETONES,URINE TRACE (NEGATIVE); LEUKOCYTE ESTERASE ,URINE NEGATIVE (NEGATIVE); NITRITE,URINE NEGATIVE (NEGATIVE); PROTEIN,URINE NEGATIVE (NEGATIVE)
[2019-10-21 14:40] LABS: BACTERIA,URINE NEGATIVE /HPF; SQUAMOUS EPITHELIAL CELL,UR RARE /HPF
--- NOTE | 2019-10-21 14:46 | Diagnostic Imaging Report ---
INDICATION: Slurred speech. TIME OF EXAM: 02:33 p.m. COMPARISON: Correlation is made with prior chest from 07/02/2019. FINDINGS: Changes of median sternotomy are noted. Heart size is stable. Lungs appear to be clear. No infiltrates are identified. There is no effusion or pneumothorax. IMPRESSION: No acute cardiopulmonary process is detected. Dictated by: Dictated on workstation # [id number]
[2019-10-21] MEDS ORDERED: NS IV 500 ML 500 ML ONE (14:47)
[2019-10-21] MEDS ORDERED: NS IV 500 ML 500 ML IV SCH (15:00)
[2019-10-21 15:42] VITALS: BP 137/59
== END 2019-10-21 15:42 | disposition home or self-care (01) ==
LOC: EDUNIT# 13:52 → ER 13:54
DX: I62.9 Nontraumatic intracranial hemorrhage, unspecified (principal); I10 Essential (primary) hypertension; F03.90 Unspecified dementia, unspecified severity, without behavioral disturbance, psychotic disturbance, mood disturbance, and anxiety; K21.9 Gastro-esophageal reflux disease without esophagitis; Z79.01 Long term (current) use of anticoagulants; Z95.2 Presence of prosthetic heart valve; Z79.82 Long term (current) use of aspirin; Z87.820 Personal history of traumatic brain injury; Z85.828 Personal history of other malignant neoplasm of skin; Z80.0 Family history of malignant neoplasm of digestive organs; Z82.49 Family history of ischemic heart disease and other diseases of the circulatory system
CPT/HCPCS: 36415; 70450; 71045; 80053; 81000; 82962; 84484; 85025; 85379; 85610; 85730; 93005; 93041